=== PATIENT | male | born 1955 | race Caucasian/White ===

== ENCOUNTER 2019-07-21 11:39 | Outpatient (CLI) | payer MEDICARE, SELFPAY ==
[2019-07-21 17:30] LABS: Basophils Absolute Auto 0.1 K/mm3 (0.0-0.1); Basophils Percent Auto 1.3 % (0.2-1.2); Eosinophils Absolute Auto 0.3 K/mm3 (0-0.3); Eosinophils Percent Auto 4.9 % (0-4.4); Hematocrit 45.5 % (42.0-52.0); Hemoglobin 14.9 g/dL (14.0-18.0); Immature Granulocyte Absolute 0.02 K/mm3 (0.00-0.031); Immature Granulocyte Percent A 0.4 % (0-0.5); Lymphocytes Absolute Auto 2.08 K/mm3 (0.9-3.2); Lymphocytes Percent Auto 39.5 % (18.3-44.2); Mean Corpuscular HGB Conc 32.7 g/dl (32-36); Mean Corpuscular Hemoglobin 30.5 pg (26-34); Mean Platelet Volume 10.5 fl (7.4-10.4); Monocytes Absolute Auto 0.7 K/mm3 (0.1-0.6); Monocytes Percent Auto 12.3 % (2.6-8.5); Neutrophils Absolute Auto 2.2 K/mm3 (1.3-6.7); Neutrophils Percent Auto 41.6 % (45.5-73.1); Platelet Count Result 266 k/mm3 (150-375); Red Blood Count 4.89 M/mm3 (4.6-6.20); Red Cell Distribution Width 12.6 % (11.5-14.5); White Blood Count 5.3 K/mm3 (4.5-10.0)
[2019-07-21 17:35] LABS: Add Urine Microscopic? YES; Appearance Urine Clear (Clear); Bilirubin Urine Negative (Negative); Blood Urine Negative (Negative); Color Urine Yellow (Yellow); Glucose Urine UA Negative (Negative); Ketones Urine Negative (Negative); Leukocyte Esterase Ur Negative LEU/UL (Negative); Nitrate Urine Negative (Negative); Protein Urine Negative (Negative); Specific Grav Ur 1.016 (1.001-1.035); Urobilinogen Urine Negative mg/dL (<2.0); WBC Urine 0-3 /hpf
[2019-07-21 18:53] LABS: Hemoglobin A1C 6.1 % (<5.7)
[2019-07-21 18:58] LABS: Alanine Aminotransferase 26 U/L (4-50); Alkaline Phosphatase 44 U/L (38-126); Aspartate Amino Transferase 32 U/L (17-59); Bilirubin,Total 0.4 mg/dL (0.2-1.3); Blood Urea Nitrogen 26 mg/dL (9-20); CRP < 0.5 mg/dL (<1.0); Calcium 10.3 mg/dL (8.4-10.2); Carbon Dioxide 24 mmol/L (22-30); Chloride 96 mmol/L (98-107); Cholesterol 137 mg/dL (0-200); Estimated Glomerular Filt Rate > 60; Glucose 118 mg/dL (75-110); HDL Direct 35 mg/dL; Potassium 4.7 mmol/L (3.4-5.0); Sodium 139 mmol/L (137-145); Triglycerides 210 mg/dL (<150)
[2019-07-21 19:06] LABS: Rheumatoid Factor < 12.0 IU/ML (<12)
[2019-07-21 19:09] LABS: LDL Cholesterol Direct 80 mg/dL
[2019-07-21 20:00] LABS: Folic Acid 11.6 ng/mL (2.76->20)
[2019-07-25 06:07] LABS: C-Peptide 3.44 ng/mL (0.80-3.85)
[2019-07-27 14:16] LABS: Testosterone Free 51.3 pg/mL (35.0-155.0); Testosterone Total 349 ng/dL (250-1100)
[2019-07-27 21:07] LABS: Anti Nuclear Antibody Titer 1:40 (Negative)
== END 2019-07-21 11:40 | disposition home or self-care (01) ==
PROVIDERS: PCP Family Medicine; Visit Provider Family Medicine
DX: E11.9 Type 2 diabetes mellitus without complications (principal); E78.5 Hyperlipidemia, unspecified; I25.10 Atherosclerotic heart disease of native coronary artery without angina pectoris; R53.83 Other fatigue; R79.89 Other specified abnormal findings of blood chemistry; Z79.4 Long term (current) use of insulin; Z79.899 Other long term (current) drug therapy; Z82.62 Family history of osteoporosis; N99.89 Other postprocedural complications and disorders of genitourinary system; I77.9 Disorder of arteries and arterioles, unspecified; Z87.438 Personal history of other diseases of male genital organs
CPT/HCPCS: 36415; 80053; 80061; 81001; 82306; 82607; 82746; 83036; 84402; 84403; 84443; 84681; 85025; 86038; 86039; 86140; 86430

== ENCOUNTER 2019-10-31 10:14 | Outpatient (CLI) | payer MEDICARE, SELFPAY ==
--- NOTE | ~2019-10-31 | CT_ITS ---
EXAMINATION: CT lumbar spine w con DATE: 10/31/2019 10:50 INDICATION: Lumbar spondylosis without myelopathy or radiculopathy. TECHNIQUE: Computed tomography (CT) of the lumbar spine was performed with 100 mL Omnipaque 350 intra venous contrast. Automated exposure control and iterative reconstruction technique were employed. The dose-length product was 1391.27 mGy-cm. COMPARISON: Lumbar spine radiograph 08/24/2019 FINDINGS: Bone alignment is normal. There are Schmorl's nodes of the superior and inferior endplates of L3. There is mildly decreased disc height at L2-L3 and L3-L4. The following disc levels are specif ically discussed: L1-L2: The disc does not extend beyond the endplate margin. There is moderate right and severe left f acet joint osteoarthritis. There is no neural foraminal stenosis. There is no central canal stenosis. L2-L3: The disc is bulging. There is moderate right and mild left facet joint osteoarthritis. There i s mild bilateral neural foraminal stenosis. There is mild central canal stenosis. L3-L4: The disc is bulging. There is severe right and mild left facet joint osteoarthritis. There is mild bilateral neural foraminal stenosis. There is mild central canal stenosis. L4-L5: The disc is bulging. There is moderate right and severe left facet joint osteoarthritis. There is mild bilateral neural foraminal stenosis. There is mild central canal stenosis. L5-S1: The disc is bulging There is moderate and severe left facet joint osteoarthritis. There is mil d left neural foraminal stenosis. There is mild central canal stenosis. IMPRESSION: 1. Mild lumbar spondylosis. Reviewed, dictated and finalized at location E. IMPRESSION: 1. Mild lumbar spondylosis.
[2019-10-31 10:43] LABS: Estimated Glomerular Filt Rate 56
== END 2019-10-31 10:15 | disposition home or self-care (01) ==
PROVIDERS: PCP Family Medicine; Visit Provider Orthopaedic Surgery
DX: M47.816 Spondylosis without myelopathy or radiculopathy, lumbar region (principal)
CPT/HCPCS: 36415; 72132; Q9967

== ENCOUNTER 2020-03-13 08:09 | Emergency (ER) | payer MEDICARE, SELFPAY ==
--- NOTE | ~2020-03-13 | XR_ITS ---
EXAMINATION: XR tibia fibula LT 2V DATE: 03/13/2020 08:41 INDICATION: Left knee injury. TECHNIQUE: 2 views of left tibia and fibula on 3 radiographs were obtained. COMPARISON: None. FINDINGS: There is a comminuted fracture of lateral tibial plateau with mild displacement of one frac ture fragment. There is heterotopic ossification distal to medial malleolus from old injury. There is mild left knee osteoarthritis. IMPRESSION: 1. Comminuted fracture of lateral tibial plateau. Reviewed, dictated and finalized at location A.
--- NOTE | ~2020-03-13 | XR_ITS ---
EXAMINATION: XR knee LT min 4V DATE: 03/13/2020 08:41 INDICATION: Left knee injury. TECHNIQUE: 4 views of left knee were obtained. COMPARISON: None. FINDINGS: There is a comminuted fracture of lateral tibial plateau. One fracture fragment demonstrate s 3 mm anterolateral displacement, and the other fracture fragments are nondisplaced. There is mild t ricompartmental osteoarthritis. There is a large knee joint effusion. IMPRESSION: 1. Comminuted fracture of lateral tibial plateau. 2. Mild left knee osteoarthritis. 3. Large left knee joint effusion. Reviewed, dictated and finalized at location A.
--- NOTE | 2020-03-13 08:13 | ED.LOWEXIN ---
HPI - Extremity Injury (Lower) General Chief Complaint: Extremity Injury, Lower Stated Complaint: L KNEE INJURY Time Seen by Provider: 03/13/20 08:13 History of Present Illness HPI Narrative: 65 yo male with h/o htn, DM, CT, presents from home after being kicked by a horse. He was kicked just below the left knee last night. He had pain instatnt pain at that time. Worse this morning. Not able to bear weight or bend his knee due to pain. Swelling and abrasion noted to the knee. Related Data Home Medications Medication Instructions Recorded Confirmed alprazolam 1 mg tablet 1 mg PO DAILY 07/04/19 01/10/20 aspirin 81 mg tablet,delayed 81 mg PO DAILY 07/04/19 01/10/20 release clopidogrel 75 mg tablet 75 mg PO DAILY 07/04/19 01/10/20 ezetimibe 10 mg tablet 10 mg PO DAILY 07/04/19 01/10/20 fenofibrate nanocrystallized 145 145 mg PO DAILY 07/04/19 01/10/20 mg tablet fluvoxamine 100 mg tablet 100 mg PO BID tablet 07/04/19 01/10/20 lisinopril 5 mg tablet 5 mg PO DAILY 07/04/19 01/10/20 metoprolol tartrate 50 mg tablet 50 mg PO DAILY 07/04/19 01/10/20 tamsulosin 0.4 mg capsule 0.4 mg PO DAILY 07/04/19 01/10/20 amlodipine 2.5 mg tablet 2 mg PO DAILY tablet 01/10/20 01/10/20 finasteride 5 mg tablet 5 mg PO DAILY 01/10/20 01/10/20 Allergies Allergy/AdvReac Type Severity Reaction Status Date / Time TIP Inhibitors Allergy Unknown Unknown Verified 03/13/20 08:27 nitroglycerin AdvReac Severe States Verified 03/13/20 08:27 severe hypotension Review of Systems Review of Systems: All systems reviewed & are unremarkable except as noted in HPI and below Constitutional: Constitutional: Denies fever(s) Musculoskeletal: Musculoskeletal: Denies back pain Neurologic: Denies numbness and Denies weakness [facility] Past Medical History Medical History Arthritis, lumbar spine BMI 33.0-33.9,adult Heart disease Vascular disease Surgical History Surgical History H/O foot surgery 06/2019 Dr. Puentes History of heart surgery Triple bypass 2004 Pacemaker Family History Family History Mother Family history of chronic obstructive pulmonary disease Family history of coronary artery disease Heart disease Sibling Family history of coronary artery disease Family history of heart disease in male family member before age 55 Hypertension Father Family history of coronary artery disease Family history of congestive heart failure Family history of malignant neoplasm of brain Kidney disease Social History Social History Smoking status: Former smoker Second hand tobacco smoke exposure: No Smoking end date: 06/14/04 Alcohol intake: never Additional occupation/education comments: Retired Exam Const: General: healthy appearing, no acute distress and alert Nutritional Appearance: well nourished Orientation/consciousness: patient oriented x3 HENMT: Head: normal to inspection Resp: Effort & Inspection: normal respiratory effort Auscultation: clear to auscultation bilaterally Cardio: Other: 2 + left DP Skin: General skin exam: normal color Other: minor abrasion inferior lateral to the left knee Neuro: General: patient oriented x3 and moves all extremities Other: LLE distal motor and sensory intact Extrem: Other: Ballotable left knee effusion. No gross deformity. ROM significantly reduced due to pain. Course Vital Signs Vital signs: Vital Signs Temperature 36.7 C 03/13/20 08:20 Pulse Rate 73 03/13/20 08:20 Respiratory Rate 20 03/13/20 08:20 Blood Pressure 157/87 H 03/13/20 08:20 Pulse Oximetry 97 03/13/20 08:20 Temperature 36.7 C 03/13/20 08:20 Pulse Rate 87 03/13/20 10:19 Respiratory Rate 18 03/13/20 10:19 Blood Pressure 167/78 H 03/13/20 10
[2020-03-13 08:20] VITALS: BP 157/87; PULSE 73; RESP 20; TEMP 36.7; O2SAT 97
--- NOTE | 2020-03-13 08:28 | PC.NURSE ---
Pt taken to Xray
[2020-03-13] MEDS: HYDROcodone/acetaminophen (*CRX) 5-325 MG TABLET 2 TAB PO (08:41)
[2020-03-13 10:19] VITALS: BP 167/78; PULSE 87; RESP 18; O2SAT 100
== END 2020-03-13 11:13 | disposition home or self-care (01) ==
PROVIDERS: Emergency Provider Emergency Medicine
DX: S82.142A Displaced bicondylar fracture of left tibia, initial encounter for closed fracture (principal); M17.12 Unilateral primary osteoarthritis, left knee; M46.96 Unspecified inflammatory spondylopathy, lumbar region; I51.9 Heart disease, unspecified; I99.9 Unspecified disorder of circulatory system; Z95.0 Presence of cardiac pacemaker; Z87.891 Personal history of nicotine dependence; W55.12XA Struck by horse, initial encounter; Z95.1 Presence of aortocoronary bypass graft
CPT/HCPCS: 73564; 73590; 99284; A9270

== ENCOUNTER 2020-07-30 12:30 | Outpatient (RCR) | payer MEDICARE, SELFPAY ==
--- NOTE | 2020-06-17 15:29 | PTOPEVAL ---
Thank you for referring Deacon Youssef to [facility].? The patient is scheduled to be seen for therapy? 2 x/week for 8-10 weeks. Please review, sign, date and return this plan of care BENSON. I agree with and certify that the following plan of care is medically necessary. Referring Physician Date Attending Provider: Rolly Bruno MD Referring Provider: Rolly Bruno MD/ Perry Romero MD, Zoey Sexton MD *PT Outpatient Evaluation Start: 06/17/20 13:33 Freq: Status: Active Protocol: Document 06/17/20 13:32 CAP (Rec: 06/17/20 14:41 CAP [id number]) Therapy Assessment Status Assessment Status Assessment Status Evaluation Outpatient Past Medical History Past Medical History Source of Past Medical History Patient,Recalled from Previous Visit, Confirmed with Patient /Family Neurological History Hx Neurological Disorders No Significant History Cardiovascular History Hx Cardiac Surgery Yes Hx Hypercholesterolemia Yes Hx Hypertension Yes Hx Myocardial Infarction Yes Respiratory History Hx Respiratory Disorders No Significant History Gastrointestinal History Hx Gastrointestinal Disorders No Significant History Genitourinary History Hx Genitourinary Disorders No Significant History Musculoskeletal History Hx Back Pain Yes Hx Fractures Yes: left tibia fracture Hx Orthopedic Surgery Yes: right 1st metatarsal fusion, 08/03, 08/30 Hematological History Hx Hematological Disorders No Significant History Endocrine History Hx Endocrine Disorders No Significant History HEENT History Hx HEENT Disorders No Significant History Integumentary History Hx Skin Disorders No Significant History Reproductive History Hx Reproductive Disorders No Significant History Psychosocial History Hx Psychiatric Disorders No Significant History Pain History History of Any Previous or Ongoing No Significant History Instance of Pain Anesthesia History Hx Anesthesia Reactions No Significant History Evaluation Information Problem Diagnosis left tibua frature, back pain, right foot pain Onset 03/13/20- tibia Additional Evaluation Detail chronic foot and back pain 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 Subjective Information When he retired he started Query Text:As Reported By Patient/ riding horses and increased Family walking for exercise, but had increased foot pain. He is s/p 2 foot surgeries in 2019 and
--- NOTE | 2020-08-01 11:24 | PCPTNOTE ---
Admitting Provider: Attending Provider: Rolly Bruno MD Patient:Deacon Youssef Date of :1955 Discharge Note Patient cancelled his remaining therapy visit due to surgery planned for his foot on 08/02/20. He attended 11 therapy visits to address back, foot and knee restrictions. He reports improved pain and function, but remain limited due to continued foot pain. He is indep with an exercise program at this time. Unable to obtain objective prior to discharge. The goals have been partially met at this time. Thank you for referring this patient to [facility]. Please review, sign, date and return this discharge summary BENSON. I have been updated about the patient's current status and I agree with discharge from the above service at this time. Referring Physician Date
== END 2020-08-01 14:25 | disposition home or self-care (01) ==
LOC: ANHPT 12:30
PROVIDERS: PCP Internal Medicine; Referring Provider Orthopaedic Surgery; Visit Provider Orthopaedic Surgery
DX: S82.122D Displaced fracture of lateral condyle of left tibia, subsequent encounter for closed fracture with routine healing (principal); M47.816 Spondylosis without myelopathy or radiculopathy, lumbar region
CPT/HCPCS: 97014; 97110; 97113; 97140; 97163; 97530; G0283

== ENCOUNTER 2020-12-31 07:30 | Outpatient (RCR) | payer MEDICARE, SELFPAY ==
--- NOTE | 2020-10-28 11:09 | PTOPEVAL ---
PHYSICAL THERAPY EVALUATION AND PLAN OF CARE Thank you for referring Deacon Youssef to [facility].? The patient is scheduled to be seen for therapy? 2x/week for 4 weeks. Please review, sign, date and return this plan of care BENSON. I agree with and certify that the following plan of care is medically necessary. Referring Physician Date Evaluation Cardiovascular History Hx Cardiac Surgery Yes Hx Hypercholesterolemia Yes Hx Hypertension Yes Hx Myocardial Infarction Yes Musculoskeletal History Hx Back Pain Yes Hx Fractures Yes: left tibia fracture Hx Orthopedic Surgery Yes: right 1st metatarsal fusion, 08/03, 08/30 Diagnosis right foot surgery Onset 07/2020 Subjective Information surgical procedure: lengthened Query Text:As Reported By Patient/ gastroc, shortened toe and Family removed ORIF, and removed nodes; He was non-weight bearing for 7 weeks with a cast. He was then in a weight bearing boot for 6 weeks. Started to wear tennis shoes several weeks ago. States that he has quite a bit of pain today and since surgery states that the pain moves around. Reports that the surgeon said pain would take a while to subside as healing continues. Deacon considers the pain to be worse now compared to immediately after surgery. hobby is to ride horses and has not yet tried until he came to therapy. States that he has also tried to go to the gym but is being cautious. Also has a chronic history of hip and back pain. Self Report Pain Assessment Right Foot/Feet Reported Pain Level 6 Pain Description Aching Radicular Pain Location heavy Pain Frequency Acute,Continuous Lowest Pain Intensity 5 Greatest Pain Intensity 8 Pain Aggravating Factors Exercise/Activity,Walking, Weight Bearing/Standing Pain Behaviors None Pain Score Pain Score 6: Self Report Interventions Used Interventions Used By Clinicians Exercise Pain Relief Interventions Used By Inactivity/Re
--- NOTE | 2020-11-13 13:35 | PCPTNOTE ---
Patient did not show up for scheduled appointment this date; called and patient stated didn't realized he had an appointment today. Reminded about scheduled appointment on Wednesday which stated will be there.
--- NOTE | 2020-11-28 11:40 | PTOPEVAL ---
PHYSICAL THERAPY PLAN OF CARE UPDATE AND PROGRESS REPORT Thank you for referring Deacon Youssef to [facility].? The patient is scheduled to be seen for therapy? 2x/week for 4 weeks. Please review, sign, date and return this plan of care BENSON. I agree with and certify that the following plan of care is medically necessary. Referring Physician Date Attending Provider: Zoey Sexton Diagnosis right foot surgery Onset 07/2020 Subjective Information reports that things are going Query Text:As Reported By Patient/ well but not great. He states Family he is riding his bike and going to the gym. He states that he he can walk on a flat surface for about 10minutes before starting to hurt and needing to rest. He can continue walking a little longer on an incline. Does continue to have pain in the right foot along the medial aspect of the foot. Self Report Pain Assessment Right Foot/Feet Reported Pain Level 4 Pain Description Pressure Pain Frequency Acute,Continuous Pain Aggravating Factors Exercise/Activity,Walking, Weight Bearing/Standing Pain Score Pain Score 4: Self Report Interventions Used Interventions Used By Clinicians Education,Exercise Pain Relief Interventions Used By Inactivity/Rest Patient Lower Extremity Range of Motion Ankle/Foot Range of Motion Right Reason Not Measured WFL/Right Foot/Toe Range of Motion Comments right great toe: limited in flexion and extension Lower Extremity Muscle Strength Testing Hip Strength Right Hip Flexion Strength 4 Good Hip Extension Strength 4 Good Hip Abduction Strength 4 Good Knee Strength Right Knee Flexion Strength 5 Normal Knee Extension Strength 5 Normal Ankle Strength Right Ankle Dorsiflexion Strength 4+ Good + Ankle Plantarflexion Strength 4+ Good + Ankle Eversion Strength 4+ Good + Ankle Inversion Strength 4+ Good + Ankle Strength Comments single leg stand: continues to have significant instability on the right with improved hip control Muscle Length Testing Muscle Length Testing Piriformis w/Hip Flexion >90 Degrees (R) Moderate Tightness,(L) Moderate Tightness Left Hamstring Length -35 Query Text:(90 - 90 Position) Right Hamstring Length -35
--- NOTE | 2020-12-12 08:01 | PCPTNOTE ---
Patient called & cancelled scheduled appointment this date due to having a doctor's appt.
--- NOTE | 2020-12-31 08:08 | PTOPEVAL ---
PHYSICAL THERAPY DISCHARGE NOTE Thank you for referring Deacon Youssef to [facility].? Please review, sign, date and return this plan of care BENSON. I agree with and certify that the following plan of care is medically necessary. Referring Physician Date Attending Provider: Zoey Sexton Discharge Diagnosis right foot surgery Onset 07/2020 Subjective Information Reports that he is a lot Query Text:As Reported By Patient/ better but not 100% better. Family Pain comes and goes depending on what he does. He notices that he is getting stronger but not 100% yet. He states he is riding his bike and going to the gym. States he can walk for about 35 minutes. Self Report Pain Assessment Right Foot/Feet Reported Pain Level 3 Pain Description Aching,Pressure Pain Frequency Acute,Continuous Pain Aggravating Factors Exercise/Activity,Walking, Weight Bearing/Standing Pain Score Pain Score 3: Self Report Interventions Used Interventions Used By Clinicians Exercise Pain Relief Interventions Used By Inactivity/Rest Patient Lower Extremity Range of Motion Ankle/Foot Range of Motion Right Reason Not Measured WFL/Right Foot/Toe Range of Motion Comments right great toe: limited in flexion and extension Lower Extremity Muscle Strength Testing Hip Strength Right Hip Flexion Strength 5 Normal Hip Extension Strength 4 Good Hip Abduction Strength 4+ Good + Knee Strength Right Knee Flexion Strength 5 Normal Knee Extension Strength 5 Normal Ankle Strength Right Ankle Dorsiflexion Strength 5 Normal Ankle Plantarflexion Strength 5 Normal Ankle Eversion Strength 5 Normal Ankle Inversion Strength 5 Normal Ankle Strength Comments single leg stand: Muscle Length Testing Muscle Length Testing Piriformis w/Hip Flexion >90 Degrees (R) Mild Tightness,(L) Mild Tightness Left Hamstring Length -35 Query Text:(90 - 90 Position) Right Hamstring Length -35 Query Text:(90 - 90 Position) Right Prone Knee Flexor Muscle Length ( 100 degrees) Left Prone Knee Flexor Muscle Length ( 115 degrees) General Exercise General Exercises Side Right,Bilateral Exercise Location ankle/LE Exercise Type Active,Resistive,Stabilization Exercise Description reviewed HEP to continue after Query
== END 2021-01-03 14:38 | disposition home or self-care (01) ==
LOC: ANHPT 07:30
PROVIDERS: PCP Internal Medicine
DX: Z48.89 Encounter for other specified surgical aftercare (principal)
CPT/HCPCS: 97110; 97162

== ENCOUNTER 2021-07-13 11:23 | Emergency (ER) | payer MEDICARE, SELFPAY ==
[2021-07-13] VITALS (16 sets, daily range): BP systolic 109–154; BP diastolic 58–78; PULSE 68–80; RESP 14–25; TEMP 36.4–37; O2SAT 79–100
--- NOTE | ~2021-07-13 | XR_ITS ---
EXAMINATION: XR chest 1V portable DATE: 07/13/2021 12:40 INDICATION: Fatigue. TECHNIQUE: A single frontal view of the chest was obtained. COMPARISON: Chest 2 views 11/21/2018 FINDINGS: The chest demonstrates clear lungs without pneumonia, pleural effusion, or pneumothorax. Th e heart size is normal. There are prominent paracardial fat pads. Median sternotomy wires and mediast inal surgical clips are seen, likely from prior coronary artery bypass grafting. There is a left ches t wall pacer with leads in the right atrium and right ventricle. IMPRESSION: 1. No acute cardiopulmonary disease. Reviewed, dictated and finalized at location A. OMER SUPPLY COORDINATOR
--- NOTE | 2021-07-13 12:08 | ECG_ITS ---
Measurements Intervals [place] Rate: 70 P: 121 UT: 320 QRS: -24 QRSD: 150 T: -86 QT: 391 QTc: 422 Interpretive Statements ELECTRONIC ATRIAL PACEMAKER LEFT BUNDLE BRANCH BLOCK INFERIOR INFARCT OR DUE TO LBBB BASELINE ARTIFACT- II, V1, V3-V6 ABNORMAL ECG Electronically Signed On 07-13-2021 16:23:56 POLYGRAPH EXAMINER by Harry Zamora D.O.
[2021-07-13 12:26] LABS: Basophils Percent Auto 0.9 % (0.2-1.2); Eosinophils Absolute Auto 0.1 K/mm3 (0-0.3); Hematocrit 41.9 % (42.0-52.0); Hemoglobin 14.1 g/dL (14.0-18.0); Immature Granulocyte Absolute 0.02 K/mm3 (0.00-0.031); Immature Granulocyte Percent A 0.5 % (0-0.5); Lymphocytes Absolute Auto 1.59 K/mm3 (0.9-3.2); Lymphocytes Percent Auto 36.4 % (18.3-44.2); Mean Corpuscular HGB Conc 33.7 g/dl (32-36); Mean Corpuscular Hemoglobin 32.6 pg (26-34); Mean Corpuscular Volume 96.8 fl (80-100); Mean Platelet Volume 9.7 fl (7.4-10.4); Monocytes Absolute Auto 0.5 K/mm3 (0.1-0.6); Monocytes Percent Auto 11.7 % (2.6-8.5); Neutrophils Absolute Auto 2.1 K/mm3 (1.3-6.7); Neutrophils Percent Auto 47.5 % (45.5-73.1); Platelet Count Result 210 k/mm3 (150-375); Red Blood Count 4.33 M/mm3 (4.6-6.20); Red Cell Distribution Width 12.6 % (11.5-14.5); White Blood Count 4.4 K/mm3 (4.5-10.0)
--- NOTE | 2021-07-13 12:29 | PC.NURSE ---
resting on cot, no distress
[2021-07-13 12:43] LABS: Alanine Aminotransferase 21 U/L (4-50); Albumin Level 4.4 g/dL (3.5-5.1); Alkaline Phosphatase 29 U/L (38-126); Anion Gap 7 mmol/L (8-16); Aspartate Amino Transferase 26 U/L (17-59); Bilirubin,Total 0.3 mg/dL (0.2-1.3); Blood Urea Nitrogen 23 mg/dL (9-20); Calcium 9.7 mg/dL (8.4-10.2); Carbon Dioxide 27 mmol/L (22-30); Chloride 106 mmol/L (98-107); Estimated CRCL calculation 58 ml/min; Estimated Glomerular Filt Rate > 60; Glucose 148 mg/dL (65-110); Potassium 4.2 mmol/L (3.4-5.0); Sodium 140 mmol/L (137-145)
[2021-07-13 13:01] LABS: SARS-CoV-2 RNA PCR Negative
[2021-07-13 13:28] LABS: Add Urine Microscopic? YES; Appearance Urine Clear (Clear); Bilirubin Urine Negative (Negative); Blood Urine 2+ (Negative); Color Urine Colorless (Yellow); Glucose Urine UA Negative (Negative); Ketones Urine Negative (Negative); Leukocyte Esterase Ur Negative LEU/UL (Negative); Nitrate Urine Negative (Negative); Protein Urine Negative (Negative); RBC Urine 0-2 /hpf (0-2); Urobilinogen Urine Negative mg/dL (<2.0); WBC Urine 0-3 /hpf
[2021-07-13 13:31] LABS: Specific Grav Ur 1.004 (1.001-1.035)
--- NOTE | 2021-07-13 18:58 | ED.GENADULT ---
HPI - General Adult General Chief complaint: Unspecified Stated complaint: sick case Time Seen by Provider: 07/13/21 11:31 Source: patient Mode of arrival: ambulatory Limitations: no limitations History of Present Illness HPI narrative: Patient is a 66-year-old male presented with chief complaint of fatigue, body aches that began after receiving his second Covid vaccination on 07-02-21. Patient denies chest pain, cough or shortness of breath. Patient reports that initially he thought his symptoms were due to his vaccination but he feels that he should be better at point. Patient reports he has not had any fevers. Patient reports that he has been sleeping more than normal due to the fatigue. Patient denies any falls or head traumas or neurological deficits. Patient denies any urinary symptoms. Related Data Home Medications Medication Instructions Recorded Confirmed alprazolam 1 mg tablet 1 mg PO DAILY 07/04/19 04/24/20 aspirin 81 mg tablet,delayed 81 mg PO DAILY 07/04/19 04/24/20 release clopidogrel 75 mg tablet 75 mg PO DAILY 07/04/19 04/24/20 ezetimibe 10 mg tablet 10 mg PO DAILY 07/04/19 04/24/20 fenofibrate nanocrystallized 145 145 mg PO DAILY 07/04/19 04/24/20 mg tablet fluvoxamine 100 mg tablet 100 mg PO DAILY tablet 07/04/19 04/24/20 lisinopril 5 mg tablet 5 mg PO DAILY 07/04/19 04/24/20 metoprolol tartrate 50 mg tablet 25 mg PO DAILY 07/04/19 04/24/20 tamsulosin 0.4 mg capsule 0.4 mg PO DAILY 07/04/19 04/24/20 amlodipine 2.5 mg tablet 2 mg PO DAILY tablet 01/10/20 04/24/20 finasteride 5 mg tablet 5 mg PO DAILY 01/10/20 04/24/20 buspirone 15 mg 07/13/21 metoprolol tartrate 07/13/21 Allergies Allergy/AdvReac Type Severity Reaction Status Date / Time TIP Inhibitors AdvReac Unknown Unknown Verified 07/13/21 11:38 Review of Systems Review of Systems: CONSTITUTIONAL: Reports fatigue and body aches denies fever, chills, or sweats. EYES: Denies visual changes, redness, or discharge. ENT: Denies rhinorrhea, congestion, sore throat, or otalgia. CARDIOVASCULAR: Denies chest pain, palpitations, or edema. RESPIRATORY: Denies cough or dyspnea. GASTROINTESTINAL: Denies abdominal pain, nausea, vomiting, or diarrhea. GENITOURINARY: Denies dysuria or hematuria. SKIN: Denies rash or itching. MUSCULOSKELETAL: Denies back pain, joint pain, or myalgia. NEUROLOGIC: Denies headache, numbness, dizziness, or weakness. PSYCHIATRIC: Denies anxiety or depression. [facility] Past Medical History Medical History (Updated 07/13/21 @ 13:03 by Amaury Adan PA-C) Arthritis, lumbar spine BMI 33.0-33.9,adult Heart disease Vascular disease Surgical History Surgical History H/O foot surgery 06/2019 Dr. Puentes History of heart surgery Triple bypass 2004 Pacemaker Family History Family History Mother Family history of chronic obstructive pulmonary disease Family history of coronary artery disease Heart disease Sibling Family history of coronary artery disease Family history of heart disease in male family member before age 55 Hypertension Father Family history of coronary artery disease Family history of congestive heart failure Family history of malignant neoplasm of brain Kidney disease Social History Social History Smoking status: Former smoker Second hand tobacco smoke exposure: No Smoking end date: 06/14/04 Alcohol intake: never Additional occupation/education comments: Retired Exam Narrative: GENERAL: Well-appearing, well-nourished, and in no acute distress. Nontoxic in appearance. HEAD: Normocephalic, atraumatic. EYES: PERRLA and EOMI. CHEST: Clear to auscultation. No respiratory distress. No wheezes rales or rhonchi HEART: Regular rate and rhythm. No murmur heard. Normal peripheral pulses. ABDOMEN: Soft, nontender, nondistend
== END 2021-07-13 14:00 | disposition home or self-care (01) ==
PROVIDERS: Physician Assistant; Emergency Provider Emergency Medicine; PCP Internal Medicine
DX: R53.83 Other fatigue (principal); T50.B95A Adverse effect of other viral vaccines, initial encounter; Z20.822 Contact with and (suspected) exposure to COVID-19; I38 Endocarditis, valve unspecified; I51.9 Heart disease, unspecified; M47.816 Spondylosis without myelopathy or radiculopathy, lumbar region; Z95.0 Presence of cardiac pacemaker; Z87.891 Personal history of nicotine dependence; Z79.82 Long term (current) use of aspirin
CPT/HCPCS: 36415; 71045; 80053; 81001; 85025; 87804; 93005; 99283; C9803; U0003; U0005

== ENCOUNTER 2021-10-14 14:03 | Emergency (ER) | payer MEDICARE, SELFPAY ==
--- NOTE | ~2021-10-14 | XR_ITS ---
EXAMINATION: XR ribs RT 2V INDICATION: Chest pain TECHNIQUE: 3 views of the right ribs were obtained. COMPARISON: 07/13/2021 FINDINGS: No displaced rib fracture is identified. There is mild atelectasis of the lung bases. Cardi omegaly is noted. Median sternotomy wires and mediastinal surgical clips are seen, likely from prior coronary artery bypass grafting. A dual-lead cardiac pacemaker of the left chest wall ends with leads in expected locations. IMPRESSION: 1. No displaced rib fracture identified. Reviewed, dictated and finalized at location A.
--- NOTE | ~2021-10-14 | CT_ITS ---
EXAMINATION: CT cervical spine wo con DATE: 10/14/2021 15:22 INDICATION: Head injury. TECHNIQUE: Computed tomography (CT) of the cervical spine was performed without intravenous contrast. Automated exposure control and iterative reconstruction technique were employed. The dose-length pro duct was 454.41 mGy-cm. COMPARISON: None FINDINGS: There are small bilateral mastoid effusions. There is 5 degrees dextrocurvature of cervical spine. Vertebral body heights are normal. There is moderately decreased disc height at C3-C4 and sev erely decreased disc height at C6-C7. The following disc levels are specifically discussed: C2-C3: There is no uncovertebral joint osteoarthritis. There is mild bilateral facet joint osteoarthr itis. There is no neural foraminal stenosis. There is no central canal stenosis. C3-C4: There is severe bilateral uncovertebral joint osteoarthritis. There is mild bilateral facet francis int osteoarthritis. There is mild right and moderate left neural foraminal stenosis. There is mild ce ntral canal stenosis. C4-C5: There is mild bilateral uncovertebral joint osteoarthritis. There is moderate right and mild l eft facet joint osteoarthritis. There is mild bilateral neural foraminal stenosis. There is mild cent ral canal stenosis. C5-C6: There is mild left uncovertebral joint osteoarthritis. There is no facet joint osteoarthritis. There is no neural foraminal stenosis. There is mild central canal stenosis. C6-C7: There is severe bilateral uncovertebral joint osteoarthritis. There is moderate right and javon re left facet joint osteoarthritis. There is moderate bilateral neural foraminal stenosis. There is m ild central canal stenosis. C7-T1: There is no uncovertebral joint osteoarthritis. There is severe bilateral facet joint osteoart hritis. There is mild left neural foraminal stenosis. There is no central canal stenosis. IMPRESSION: 1. No fracture. 2. Severe cervical spondylosis. Reviewed, dictated and finalized at location B.
--- NOTE | ~2021-10-14 | CT_ITS ---
EXAMINATION: CT brain wo con INDICATION: Head injury COMPARISON: None TECHNIQUE: Standard unenhanced head CT. The dose-length product (DLP) was 605.33 mGy-cm. The mA was a djusted according to patient size. Iterative reconstruction technique was employed. FINDINGS: There is no intracranial hemorrhage, acute infarction, or abnormal mass lesion. The ventric les are normal. There is no abnormal mass effect or midline shift. The jensen-white matter differentiat ion is normal. The basal cisterns are patent. The orbits are normal. There is a chronic small right m astoid effusion. The paranasal sinuses, left mastoids and calvarium are normal. IMPRESSION: 1. No acute intracranial abnormality. Reviewed, dictated and finalized at location A.
[2021-10-14 14:06] VITALS: BP 157/99; PULSE 67; RESP 18; TEMP 37.1; O2SAT 99
--- NOTE | 2021-10-14 14:27 | ED.BACK ---
HPI - Back Pain/Injury General Chief Complaint: Back Pain/Injury Stated Complaint: fall from horse with shoulder pain Time Seen by Provider: 10/14/21 14:14 History of Present Illness HPI Narrative: 66-year-old male presents the emergency room for evaluation of labs and after falling off of a horse. Patient states he fell off a horse on Wednesday landed on his right side and also struck his head. Patient states pain is worse with inspiration and movement when you touch. Patient denied LOC or altered mental status. Patient is on Plavix. Related Data Home Medications Medication Instructions Recorded Confirmed alprazolam 1 mg tablet 1 mg PO DAILY 07/04/19 10/01/21 aspirin 81 mg tablet,delayed 81 mg PO DAILY 07/04/19 10/01/21 release clopidogrel 75 mg tablet 75 mg PO DAILY 07/04/19 10/01/21 ezetimibe 10 mg tablet 10 mg PO DAILY 07/04/19 10/01/21 fenofibrate nanocrystallized 145 145 mg PO DAILY 07/04/19 10/01/21 mg tablet fluvoxamine 100 mg tablet 100 mg PO DAILY tablet 07/04/19 10/01/21 lisinopril 5 mg tablet 5 mg PO DAILY 07/04/19 10/01/21 amlodipine 2.5 mg tablet 2 mg PO DAILY tablet 01/10/20 10/01/21 finasteride 5 mg tablet 5 mg PO DAILY 01/10/20 10/01/21 buspirone 15 mg 07/13/21 10/01/21 metoprolol tartrate 07/13/21 10/01/21 Allergies Allergy/AdvReac Type Severity Reaction Status Date / Time TIP Inhibitors AdvReac Unknown Unknown Verified 10/14/21 14:18 Review of Systems Review of Systems: CONSTITUTIONAL: Denies fever, chills, or sweats. EYES: Denies visual changes, redness, or discharge. ENT: Denies rhinorrhea, congestion, sore throat, or otalgia. CARDIOVASCULAR: Denies chest pain, palpitations, or edema. RESPIRATORY: Denies cough or dyspnea. GASTROINTESTINAL: Denies abdominal pain, nausea, vomiting, or diarrhea. GENITOURINARY: Denies dysuria or hematuria. SKIN: Denies rash or itching. MUSCULOSKELETAL: Reports right rib pain NEUROLOGIC: Denies headache, numbness, dizziness, or weakness. PSYCHIATRIC: Denies anxiety or depression. PMFSH Past Medical History Medical History Arthritis, lumbar spine BMI 33.0-33.9,adult Heart disease Pain in both knees Vascular disease Surgical History Surgical History H/O foot surgery 06/2019 Dr. Puentes History of heart surgery Triple bypass 2004 Pacemaker Family History Family History Mother Family history of chronic obstructive pulmonary disease Family history of coronary artery disease Heart disease Sibling Family history of coronary artery disease Family history of heart disease in male family member before age 55 Hypertension Father Family history of coronary artery disease Family history of congestive heart failure Family history of malignant neoplasm of brain Kidney disease Social History Social History Smoking status: Former smoker Second hand tobacco smoke exposure: No Smoking end date: 06/14/04 Alcohol intake: never Additional occupation/education comments: Retired Exam Narrative: GENERAL: Well-appearing, well-nourished, and in no acute distress. HEAD: Normocephalic, atraumatic. EYES: PERRLA and EOMI. CHEST: Clear to auscultation. No respiratory distress. No wheezes rales or rhonchi. Tenderness to the right lateral eighth and ninth ribs. No ecchymosis noted no flail chest. No bony abnormality HEART: Regular rate and rhythm. No murmur heard. Normal peripheral pulses. ABDOMEN: Soft, nontender, nondistended, normal active bowel sounds. EXTREMITIES: Normal range of motion. No edema. SKIN: Warm, dry, no rash. NEURO: No focal deficits. Alert and oriented x3. PSYCH: Normal mood and affect. Course Vital Signs Vital signs: Vital Signs Temperature 37.1 C 10/14/21 14:06 Pulse Rate 67 10/14/21 14:06 R
[2021-10-14 16:10] VITALS: RESP 16
== END 2021-10-14 16:10 | disposition home or self-care (01) ==
PROVIDERS: Emergency Provider Nurse Practitioner Family; PCP Internal Medicine
DX: S09.90XA Unspecified injury of head, initial encounter (principal); S20.211A Contusion of right front wall of thorax, initial encounter; I51.9 Heart disease, unspecified; I99.9 Unspecified disorder of circulatory system; Z95.0 Presence of cardiac pacemaker; Z95.1 Presence of aortocoronary bypass graft; Z79.82 Long term (current) use of aspirin; Z87.891 Personal history of nicotine dependence; V80.010A Animal-rider injured by fall from or being thrown from horse in noncollision accident, initial encounter; Y93.52 Activity, horseback riding
CPT/HCPCS: 70450; 71100; 72125; 99284

== ENCOUNTER 2022-03-24 12:30 | Outpatient (RCR) | payer MEDICARE, SELFPAY ==
--- NOTE | 2022-01-26 14:57 | PTOPEVAL ---
PHYSICAL THERAPY EVALUATION AND PLAN OF CARE Thank you for referring Deacon Youssef to [facility].? The patient is scheduled to be seen for therapy? 2x/week for 4 weeks. Please review, sign, date and return this plan of care BENSON. I agree with and certify that the following plan of care is medically necessary. Referring Physician Date Attending Provider: Arthur Bateman MD Diagnosis low back pain Onset chronic Subjective Information Reports a chronic pain in low Query Text:As Reported By Patient/ back. Almost a constant ache Family and will have occasionl espiodes of severe pain. When the severe pain occurs it goes down his legs. Reports that the muscles feel really tight and tired and the low back will get achey and his feet will throb. Enjoys horse back riding and has not felt able to participate in this activity lately for not feeling strong enough to get on the horse. Spine, Lumbar Reported Pain Level 5 Pain Description Aching,Tightness Lumbar ROM Lumbar Flexion Active Knee Query Text:Hands to: Lumbar Extension (0-40) 5 Query Text:Active in Degrees Lower Extremity Range of Motion General Lower Extremity Range of Motion Reason Not Measured WFL/Left,WFL/Right Lower Extremity Muscle Strength Testing Hip Strength Left Hip Flexion Strength 4- Good - Hip Extension Strength 3 Fair Hip Abduction Strength 3 Fair Right Hip Flexion Strength 5 Normal Hip Extension Strength 3- Fair - Hip Abduction Strength 3 Fair Hip Strength Comments high resting tone of bilateral glutes, especially right-- requires significant cues to inhibit the glutes in order to promote optimal contraction after relaxation Knee Strength Bilateral Knee Flexion Strength 4+ Good + Knee Extension Strength 4+ Good + Muscle Length Testing Muscle Length Testing Mathew Test Shortened Muscles Short (R) Iliopsoas,Short (L) Iliopsoas,Short (R) Rectus Femoris,Short (L) Rectus Femoris Piriformis w/Hip Flexion >90 Degrees (R) Moderate Tightness,(L) Moderate Tightness Posture Posture Standing Position Lumbar Spine Posture
--- NOTE | 2022-02-24 13:32 | PTOPPROG ---
Assessment and note entered by Katiana Lopez, PT Evaluation Information Assessment Status Re-evaluation Subjective Information Deacon reports: since coming for therapy, little worse because feel it more, due to doing more-- hamstring, gluts, knees and back--muscles sore from using them; does have pain with R foot when walking due to previous surgery; have his bicycle ready to ride for fitness; wants to continue therapy to get moving more; Assessment PT Clinical Summary Deacon has received 9 PT sessions, for the diagnosis of chronic low back pain. Oswestry self assessment functional score of 50% limitation in activity level. Compared to the initial evaluation: continues to have tightness over lumbar spine and hips; has slight increase in strength of hips; continues to report decrease walking and activity level at home He has been educated and is performing a home exercise program. He does report more soreness of muscles from stretching and doing more; have worked with him on differentiating pain VS muscle sore from stretching. Discussed aquatic therapy with pt and he is interested in doing water exercises. Continue PT for further stretching and strengthening of his trunk and hips, with progression of his HEP and use of the aquatic exercises for the heat and buoyancy of the water to increase ability to stretch; Plan of Care Interventions Aquatic Therapy,Hot Pack/Cold Pack,Manual Therapy, Mechanical Traction,Neuro Re-education,Patient/ Caregiver Education,Therapeutic Activities, Therapeutic Exercise PT Services Indicated Yes Treatment Frequency and 2x/wk for 4 weeks Duration These treatments will address the objective and functional deficits as defined above. The patient will be advanced safely and appropriately in order for the patient to progress towards his/her prior level of function. Additional exercises will be introduced and as well as a comprehensive home exercise program upon discharge, if needed, ?to ensure carryover of functional gains achieved in the clinic. This treatment plan has been reviewed and agreement upon by the patient.
--- NOTE | 2022-03-03 12:09 | PCPTNOTE ---
Patient called & cancelled scheduled appointment this date due to unable to make it due to something coming up.
--- NOTE | 2022-03-24 13:08 | PTOPDC ---
Assessment and note entered by Katiana Lopez, PT Evaluation Information Assessment Status Discharge Subjective Information Deacon reports: had injections in R and L knees by ortho dr and helped some; still having problems with sleeping- wake up with pain during night; walking about 15 min then have to stop due to back , R foot and gluts tight; foot dr said no more surgery on foot; pain management said may consider some noninvasive surgery on back; liked the water exercises- looking to join a fitness center with a pool; still try to walk every day for exercise; Reported Pain Level Pain Score Self Report back pain Additional Pain Score Comments reports pain range in back of 4-8/10; points to lower lumbar spine- center of back, B gluts, wake up 3x/ night due to back pain; Oswestry self assessment functional score 62% limitation; decrease pain with heat pad, aspirin, stretching; increase pain with walking/standing; educated pt on activity/rest balance, importance of stretching hips and continue to strengthen legs and trunk, benefits of aquatic exercise VS walking; Assessment PT Clinical Summary Deacon has received 15 PT sessions, for the diagnosis of lumbago. Treatment included land and aquatic exercises. Compared to the last reevaluation: pain rating is the same at the low rating 4/10 and increased 1 at the worst rating from 7 to 8/10; reported walking tolerance increased from 10 to 15 minutes; flexibility of anterior hip/quad, piriformis and hip extension are about the same; slight increase in R and L hip strength; Oswestry self assessment functional score is 12% worse; He has been educated on posture, body mechanics, pain management and home exercises. The goals were partially met. Discharge PT services, and he is to continue with his land and aquatic exercises. Plan of Care PT Services Indicated No
== END 2022-03-24 15:02 | disposition home or self-care (01) ==
LOC: ANHPT 12:30
PROVIDERS: PCP Internal Medicine
DX: M54.50 Low back pain, unspecified (principal); G89.29 Other chronic pain
CPT/HCPCS: 97110; 97112; 97113; 97140; 97162; 97530

== ENCOUNTER 2023-01-06 07:28 | Emergency (ER) | payer MEDICARE, SELFPAY ==
--- NOTE | ~2023-01-06 | CT_ITS ---
Non-contrast Head CT History: Head injury COMPARISON: 10/14/2021 Technique: Axial non-contrast imaging of the brain was performed. Dose reduction technique was used on this scan by utilizing automated exposure control and iterative reconstruction technique. The dose -length product (DLP) was 605.33 mGy-cm. Findings: There is no evidence of intracranial hemorrhage, mass lesion, or acute infarct. Brain par enchyma appears normal. The ventricles and subarachnoid spaces are normal in size. The calvarium ap pears normal. The visualized paranasal sinuses and mastoid air cells are clear. Impression: No significant abnormality seen. Reviewed, dictated and finalized at location . Impression: No significant abnormality seen.
--- NOTE | ~2023-01-06 | CT_ITS ---
CT Facial Bones Clinical Indication: Facial swelling and bruising Technique: Contiguous axial scans were obtained through the facial bones followed by coronal and sagi ttal reconstructions. Dose reduction technique was used on this scan by utilizing automated exposure control and iterative reconstruction technique. The dose-length product (DLP) was 386.30 mGy-cm. Findings: No fractures are identified. The visualized paranasal sinuses are clear. Intraorbital soft tissues appear normal. There is a 2.3 x 1.1 x 2.2 cm hematoma in the right cheek. Impression: No fracture identified. 2.3 x 1.1 x 2.2 cm hematoma in the right cheek. Reviewed, dictated and finalized at location . Impression: No fracture identified. 2.3 x 1.1 x 2.2 cm hematoma in the right cheek.
[2023-01-06 07:30] VITALS: BP 183/93; PULSE 78; RESP 18; TEMP 36.4; O2SAT 97
[2023-01-06 07:36] VITALS: BP 164/81; PULSE 70; RESP 19; TEMP 36.7; O2SAT 97
[2023-01-06 07:41] VITALS: O2SAT 97
--- NOTE | 2023-01-06 08:24 | ED.HEATRA ---
HPI - Head Injury General Chief complaint: Head Injury Stated complaint: facial injury Time Seen by Provider: 01/06/23 07:36 Source: patient and RN notes reviewed Mode of arrival: ambulatory Limitations: no limitations History of Present Illness HPI Narrative: This is a 67 year old male who presents for evaluation of facial bruising. He states last week he was accidentally head butted by his horse. He denies having LOC . He reports he has right facial swelling and bruising at the time. He also reports frontal headache since this injury. He denies nausea or vomiting. He has chronic blurred vision from macular degeneration but he states his vision does not seem any worse. He also denies pain with eye movement. He takes aspirin 81 mg and plavis for history of recent [place], peripheral stents. He came to ER today because although the swelling has improved, he noticed right cheek knot that is still present. Related Data Home Medications Medication Instructions Recorded Confirmed alprazolam 1 mg tablet 1 mg PO DAILY 07/04/19 11/18/22 aspirin 81 mg tablet,delayed 81 mg PO DAILY 07/04/19 11/18/22 release (Adult Low Dose Aspirin) clopidogrel 75 mg tablet 75 mg PO DAILY 07/04/19 11/18/22 ezetimibe 10 mg tablet 10 mg PO DAILY 07/04/19 11/18/22 fenofibrate nanocrystallized 145 145 mg PO DAILY 07/04/19 11/18/22 mg tablet fluvoxamine 100 mg tablet 100 mg PO DAILY 07/04/19 11/18/22 lisinopril 5 mg tablet 5 mg PO DAILY 07/04/19 11/18/22 amlodipine 2.5 mg tablet 2 mg PO DAILY 01/10/20 11/18/22 finasteride 5 mg tablet 5 mg PO DAILY 01/10/20 11/18/22 buspirone 15 mg tablet 15 mg 07/13/21 11/18/22 metoprolol tartrate 25 mg tablet 07/13/21 11/18/22 Allergies Allergy/AdvReac Type Severity Reaction Status Date / Time No Known Allergies Allergy Verified 11/18/22 13:27 Review of Systems Constitutional: Constitutional: Denies weakness Cardiovascular: Cardiovascular: Denies syncope, Denies rapid heart rate, Denies irregular heart rhythm, Denies leg edema and Denies dyspnea Respiratory: Respiratory: Denies chest congestion, Denies hemoptysis, Denies excessive phlegm production and Denies dyspnea Gastrointestinal: Gastrointestinal: Denies abdominal pain, Denies hematochezia, Denies diarrhea and Denies vomiting Genitourinary: Genitourinary: Denies hematuria, Denies dysuria, Denies penile discharge and Denies testicular pain Musculoskeletal: Musculoskeletal: Denies joint swelling, Denies loss of height and Denies muscle weakness Neurologic: Reports dizziness, Denies syncope, Reports headache(s), Denies focal weakness and Denies weakness [facility] Past Medical History Medical History (Updated 01/06/23 @ 08:27 by Shanel Freitas MD) Arthritis, lumbar spine BMI 33.0-33.9,adult Closed fracture of lateral portion of left tibial plateau Degenerative arthritis of knee, bilateral Heart disease Myocardial infarction Pain in both knees Vascular disease Surgical History Surgical History (Updated 01/06/23 @ 08:27 by Shanel Freitas MD) H/O foot surgery 06/2019 Dr. Puentes History of heart surgery Triple bypass 2003 Pacemaker Stented coronary artery Family History Family History Mother Family history of chronic obstructive pulmonary disease Family history of coronary artery disease Heart disease Sibling Family history of coronary artery disease Family history of heart disease in male family member before age 55 Hypertension Father Family history of coronary artery disease Family history of congestive heart failure Family history of malignant neoplasm of brain Kidney disease Social History Social History Smoking status: Former smoker Second hand tobacco smoke exposure: No Smoking end date: 06/14/04 Alcohol intake: never Substance use type: does not use Lack of Transportation: No Lack of Food: Never True
[2023-01-06 08:40] VITALS: BP 139/93; PULSE 63; RESP 18; O2SAT 94
== END 2023-01-06 08:40 | disposition home or self-care (01) ==
PROVIDERS: Emergency Provider General Practice; PCP Internal Medicine
DX: S00.83XA Contusion of other part of head, initial encounter (principal); H35.30 Unspecified macular degeneration; I25.2 Old myocardial infarction; I99.9 Unspecified disorder of circulatory system; M47.816 Spondylosis without myelopathy or radiculopathy, lumbar region; M17.0 Bilateral primary osteoarthritis of knee; Z95.5 Presence of coronary angioplasty implant and graft; Z95.0 Presence of cardiac pacemaker; Z87.891 Personal history of nicotine dependence; Z79.02 Long term (current) use of antithrombotics/antiplatelets; Z79.82 Long term (current) use of aspirin; Z79.84 Long term (current) use of oral hypoglycemic drugs; W55.12XA Struck by horse, initial encounter
CPT/HCPCS: 70450; 70486; 99284

== ENCOUNTER 2023-04-06 08:00 | Outpatient (RCR) | payer MEDICARE, SELFPAY ==
--- NOTE | 2023-02-05 12:02 | OPREHPOC ---
Outpatient Therapy Plan of Care This is a Multidisciplinary Plan of Care that may contain components documented by all disciplines (PT, OT, and ST.) PT Problem 1 PT Problem #1 Knowledge Deficit PT Goal 1 Goal 1* pt indep with HEP PT Problem 2 PT Problem #2 Pain PT Goal 1 Goal 1* pt report knee pain bilateral of 5/10 at worst 2* pt report walking tolerance of 15 minutes PT Problem 3 PT Problem #3 Impaired Strength PT Goal 1 Goal 1* pt able to perform 20 reps of mat and standing strengthening exercises single leg standing with good stability 30 seconds 2* R 3* L 4* 2 minute walking test distance of 475' PT Problem 4 PT Problem #4 Impaired Flexibility PT Goal 1 Goal increase anterior hip/quad length with prone knee flexion 1* R 105' 2* L 110'
--- NOTE | 2023-02-05 12:03 | PTOPEVAL1 ---
Assessment and note entered by Katiana Lopez, PT Evaluation Information Assessment Status Evaluation Diagnosis bilateral knee pain Onset November 2022 Subjective Information was scheduled to have TKR on L, but then had cardiac issues with stent placed and not able to have knee surgery; had injections in both knees and they helped with his pain; ACTIVITY: does not use an assistive device, indep with home and self care; does not work; Reported Pain Level Pain Score Self Report Additional Pain Score Comments pain range of 4 to 7/10; L knee more painful than R; walking tolerance of about 10 minutes then have to sit down; also has back and R foot pain with walking and activity increase pain: stairs, walking decrease pain: ice, heat, sit, rest, muscle cream; aspirin, have new script for tramadol--not started yet Assessment PT Clinical Summary Deacon has the diagnosis of bilateral knee pain. He was scheduled to have L TKR, but had to be canceled due to cardiac issues and stents placed. His walking tolerance is limited due to knee pain. His medical history includes pacemaker, R foot surgery/pain and low back pain. With the evaluation, he has weakness of both hips and knees, with decreased L knee ROM and anterior hip/quad tightness. Skilled PT services are indicated for modalities to decrease pain, therapeutic exercises to increase his strength and flexibility with education for HEP and activity progression. Plan of Care Interventions Hot Pack/Cold Pack,Manual Therapy,Neuro Re- education,Patient Education,Therapeutic Activities,Therapeutic Exercise,Self-Care/Home Management,Ultrasound,Other Other Interventions taping PT Services Indicated Yes Treatment Frequency and 1x/wk for 4 weeks Duration These treatments will address the objective and functional deficits as defined above. The patient will be advanced safely and appropriately in order for the patient to progress towards his/her prior level of function. Additional exercises will be introduced and as well as a comprehensive home exercise program upon discharge, if need
--- NOTE | 2023-03-05 11:41 | PTOPPROG ---
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 Compared to the initial evaluation: pain rating from 4-7/10 to 6-8/10 in knees; continues to report back and hip pain also; reported walking tolerance is the same at 10 min; increased strength of both hips and knees with mat exercises 2 minute walking test distance is about the same; education for home exercise program and position/ posture with activity. The goals were partially achieved. Continue treatment- continue modalities for pain-- continue dry needling with progression of strengthening as tolerated. Plan of Care Interventions Hot Pack/Cold Pack,Manual Therapy,Neuro Re- education,Patient Education,Therapeutic Activities,Therapeutic Exercise,Self-Care/Home Management,Ultrasound,Other Other Interventions dry needling, taping, IASTM PT Services Indicated Yes Treatment Frequency and 1x/wk for 4 weeks Duration These treatments will address the objective and functional deficits as defined above. The patient will be advanced safely and appropriately in order for the patient to progress towards his/her prior level of function. Additional exercises will be introduced and as well as a co
--- NOTE | 2023-03-05 11:41 | OPREHPOC ---
Outpatient Therapy Plan of Care This is a Multidisciplinary Plan of Care that may contain components documented by all disciplines (PT, OT, and ST.) PT Problem 1 PT Problem #1 Knowledge Deficit PT Goal 1 Goal 1* pt indep with HEP Progress Met Comment 03-05-23 progress met goal continue to progress education/ HEP PT Problem 2 PT Problem #2 Pain PT Goal 1 Goal 1* pt report knee pain bilateral of 5/10 at worst 2* pt report walking tolerance of 15 minutes Progress Not Met Comment 03-05-23 progress continue towards goals PT Problem 3 PT Problem #3 Impaired Strength PT Goal 1 Goal 1* pt able to perform 20 reps of mat and standing strengthening exercises single leg standing with good stability 30 seconds 2* R 3* L 4* 2 minute walking test distance of 475' Progress Partially Met Comment 03-05-23 progress met goals: #1- able to perform some of them 20 reps; #2&3-met for time but unstable continue towards goals PT Problem 4 PT Problem #4 Impaired Flexibility PT Goal 1 Goal increase anterior hip/quad length with prone knee flexion 1* R 105' 2* L 110' Progress Met Comment 03-05-23 progress met goals discontinue flexibility
--- NOTE | 2023-04-05 11:25 | PCPTNOTE ---
pt did not show for today's reevaluation; called him and he had the wrong date on his calendar for appt; he wanted to reschedule the appt.
--- NOTE | 2023-04-06 08:46 | PTOPDC ---
Assessment and note entered by Katiana Lopez, PT Evaluation Information Assessment Status Discharge Diagnosis bilateral knee pain Onset November 2022 Subjective Information my knee pain is not as sharp, more of a dull ache now; have been doing the exercises; walking is better, can go further before pain starts; is doing everything at home, but slower; is still going to cardiac rehab; have seen ortho dr about L TKR, but cannot get due to cardiac stent, have to wait until after November; Reported Pain Level Pain Score Self Report Additional Pain Score Comments pain range of 3-6/10 in L knee, dull ache, medial L knee walking about 20 minute tolerance decrease pain- sit/rest; have not taken tramadol in the past week; reinforced use of ice and rest to manage pain; he has a knee brace, but states it hurts his thigh with the velcro strap; Assessment PT Clinical Summary Deacon has received a total of 10 PT sessions. He is awaiting cardiac clearance for L TKR. Compared to the last reevaluation: pain has decreased from 6-8/10 to 3-6/10; reported walking tolerance from 10 to 20 minute tolerance; is no longer taking tramadol for pain; 2 minute walking test distance increased from 380' to 525' and did not report pain increase; increase strength of bilateral hip and knee strength with mat and standing exercises, but continues to have decreased stability with single leg standing; increase flexibility of anterior hip/quad length with prone knee flexion 10' bilateral; indep with HEP, using resistance bands. The goals were achieved, except single leg standing time with good stability. Discharge from PT services, to continue with HEP and activity as knee pain allows. Plan of Care PT Services Indicated No
== END 2023-04-06 10:03 | disposition home or self-care (01) ==
LOC: ANHPT 08:00
PROVIDERS: PCP Internal Medicine; Visit Provider Internal Medicine
DX: E11.9 Type 2 diabetes mellitus without complications (principal); M25.561 Pain in right knee; M25.562 Pain in left knee
CPT/HCPCS: 97110; 97140; 97161; 97530

== ENCOUNTER 2023-04-29 02:54 | Day surgery (SDC) | payer MEDICARE, SELFPAY ==
[2023-04-22 09:45] VITALS: BMI 28.9
--- NOTE | 2023-04-27 09:46 | SUR.PREOP ---
Patient called regarding upcoming procedure. Reviewed preop instructions, appointment times, and procedure prep.
[2023-04-29 06:19] VITALS: BP 136/73; PULSE 70; RESP 20; TEMP 35.7; O2SAT 97; BMI 29.7
[2023-04-29] MEDS: LACTATED RINGERS 1,000 ML 150 ML IV CONT (06:35)
[2023-04-29 06:38] LABS: Glucose Point of Care 127 mg/dl (65-105)
--- NOTE | 2023-04-29 07:23 | WPDANESEPPF ---
Anes - Initial Pre Proc Eval Procedure: Operation Date: 04/29/23 07:30 Proposed Procedures p Esophagogastroduodenoscopy - Honorio Rdz DO Date/Time: 04/29/23 07:23 Surgeon: Honorio Rdz DO Pre Op Diagnosis: dysphagia Patient Data Age: 68 Gender: M Height: 1.8 m Weight: 96.7 kg Last Vital Signs Temp 96.3 F L 04/29/23 06:19 Pulse 70 04/29/23 06:19 Resp 20 04/29/23 06:19 BP 136/73 04/29/23 06:19 Pulse Ox 97 04/29/23 06:19 O2 Del Method Room Air 04/29/23 06:19 Allergies Allergy/AdvReac Type Severity Reaction Status Date / Time No Known Allergies Allergy Verified 04/29/23 06:18 Home Medications Medication Instructions Recorded Confirmed Type clopidogrel 75 mg tablet 75 mg PO DAILY 07/04/19 04/22/23 History ezetimibe 10 mg tablet 10 mg PO DAILY 07/04/19 04/22/23 History fluvoxamine 100 mg tablet 100 mg PO DAILY 07/04/19 04/22/23 History lisinopril 5 mg tablet 5 mg PO DAILY 07/04/19 04/22/23 History metformin 1,000 mg tablet 1,000 mg PO DAILY #90 tabs 07/06/19 04/22/23 Rx amlodipine 2.5 mg tablet 2 mg PO DAILY 01/10/20 04/22/23 History finasteride 5 mg tablet 5 mg PO DAILY 01/10/20 04/22/23 History metoprolol tartrate 25 mg tablet 25 mg PO DAILY 07/13/21 04/22/23 History Laboratory Tests 04/29/23 06:31 POC Capillary Glucose 127 H mg/dl (65-105) Patient hx anesthesia problems: none Family hx anesthesia problems: none Results Review: All pre-operative results and documents have been reviewed as part of the pre-operative evaluation. [facility] Past Medical History Medical History Arthritis, lumbar spine BMI 33.0-33.9,adult Closed fracture of lateral portion of left tibial plateau Degenerative arthritis of knee, bilateral Heart disease Myocardial infarction Pain in both knees Vascular disease Surgical History Surgical History H/O foot surgery 06/2019 Dr. Puentes H/O heart artery stent History of heart surgery Triple bypass 2004 Pacemaker Stented coronary artery Family History Family History Mother Family history of chronic obstructive pulmonary disease Family history of coronary artery disease Heart disease Sibling Family history of coronary artery disease Family history of heart disease in male family member before age 55 Hypertension Lung cancer both brothers Father Family history of coronary artery disease Family history of congestive heart failure Family history of malignant neoplasm of brain Kidney disease Social History Social History Smoking packs per day: 1 Smoking cigarettes per day: 20.0 Years smoked: 25 Smoking pack-years: 25.00 Smoking status: Former smoker Second hand tobacco smoke exposure: No Substance use type: does not use Lack of Transportation: No Lack of Food: Never True Current Housing: I Have Housing Concerned About Future Housing: No Difficulty Paying Gas/Electric Bills: No Difficulty Paying for Meds: No Currently Unemployed: No Education: Trade/Vocational Certificate Difficulty w/ Childcare or Family Care: No Living arrangements: alone Occupation/Education: retired Additional occupation/education comments: Retired [employer] Final PreProcedure Day of Procedure 04/29/23 07:23 Patient weight: obese Heart: regular rate and rhythm Lungs: clear to auscultation Airway: Mallampati scale class II Neurological: alert and oriented Last oral intake: >/= 8 hours ASA classification: III Emergent: no Anesthetic plan: proceed Anesthesia type and monitoring: general GIVS and standard monitoring Results Review: All pre-operative results and documents have been reviewed as part of the pre-operative evaluation. Informed Consent: The patient's an
--- NOTE | 2023-04-29 07:33 | PM.IMHP ---
H&P: HPI History of Present Illness Date/Time: 04/29/23 07:33 Chief Complaint: Dysphagia Narrative: This is a 60-year-old man who presents with intermittent difficulties eating. He has occasional regurgitation but denies any real significant difficulty swallowing solid food. He does not recall what causes this. It is intermittent and he can go periods of time without any symptoms. He does have occasional heartburn or acid reflux as well. Review of Systems Review of Systems: All systems reviewed & are unremarkable except as noted in HPI and below Constitutional: Constitutional: Denies chills, Denies fever(s), Denies headache(s) and Denies weight loss Eyes: Eyes: Denies change in vision ENT: Denies dizziness, Denies headache(s), Denies neck mass and Denies throat swelling Cardiovascular: Cardiovascular: Denies chest pain, Denies lightheadedness and Denies dyspnea Respiratory: Respiratory: Denies cough, Denies dyspnea and Denies wheezing Gastrointestinal: Gastrointestinal: Denies abdominal pain, Denies change in bowel habits, Denies nausea and Denies vomiting Genitourinary: Genitourinary: Denies hematuria and Denies dysuria Musculoskeletal: Musculoskeletal: Reports as per HPI Integumentary/Breasts: Skin/Breast: Reports as per HPI Neurologic: Denies dizziness and Denies headache(s) Allergic/Immunologic: Allergic/Immunologic: Denies throat swelling and Denies wheezing [facility] Past Medical History Medical History Arthritis, lumbar spine BMI 33.0-33.9,adult Closed fracture of lateral portion of left tibial plateau Degenerative arthritis of knee, bilateral Heart disease Myocardial infarction Pain in both knees Vascular disease Surgical History Surgical History H/O foot surgery 06/2019 Dr. Puentes H/O heart artery stent History of heart surgery Triple bypass 2004 Pacemaker Stented coronary artery Family History Family History Mother Family history of chronic obstructive pulmonary disease Family history of coronary artery disease Heart disease Sibling Family history of coronary artery disease Family history of heart disease in male family member before age 55 Hypertension Lung cancer both brothers Father Family history of coronary artery disease Family history of congestive heart failure Family history of malignant neoplasm of brain Kidney disease Social History Social History Smoking packs per day: 1 Smoking cigarettes per day: 20.0 Years smoked: 25 Smoking pack-years: 25.00 Smoking status: Former smoker Second hand tobacco smoke exposure: No Substance use type: does not use Lack of Transportation: No Lack of Food: Never True Current Housing: I Have Housing Concerned About Future Housing: No Difficulty Paying Gas/Electric Bills: No Difficulty Paying for Meds: No Currently Unemployed: No Education: Trade/Vocational Certificate Difficulty w/ Childcare or Family Care: No Living arrangements: alone Occupation/Education: retired Additional occupation/education comments: Retired Meds Home Medications and Allergies Home Medications Medication Instructions Recorded Confirmed Type clopidogrel 75 mg tablet 75 mg PO DAILY 07/04/19 04/22/23 History ezetimibe 10 mg tablet 10 mg PO DAILY 07/04/19 04/22/23 History fluvoxamine 100 mg tablet 100 mg PO DAILY 07/04/19 04/22/23 History lisinopril 5 mg tablet 5 mg PO DAILY 07/04/19 04/22/23 History metformin 1,000 mg tablet 1,000 mg PO DAILY #90 tabs 07/06/19 04/22/23 Rx amlodipine 2.5 mg tablet 2 mg PO DAILY 01/10/20 04/22/23 History finasteride 5 mg tablet 5 mg PO DAILY 01/10/20 04/22/23 History metoprolol tartrate 25 mg tablet 25 mg PO DAILY 07/13/21 04/22/23 History Allergies Allergy/A
[2023-04-29 07:58] VITALS: BP 138/90; PULSE 73; RESP 20; O2SAT 98
[2023-04-29 08:08] VITALS: BP 121/70; PULSE 70; RESP 20; O2SAT 98
[2023-04-29 08:18] VITALS: BP 126/81; PULSE 70; RESP 16; O2SAT 97
== END 2023-04-29 08:34 | disposition home or self-care (01) ==
PROVIDERS: PCP Internal Medicine; Visit Provider Surgery
PROC: 0DJ08ZZ Inspection of Upper Intestinal Tract, Via Natural or Artificial Opening Endoscopic (ICD-10-PCS; CPT 43235; principal; 2023-04-29 07:30)
DX: K22.2 Esophageal obstruction (principal); K21.00 Gastro-esophageal reflux disease with esophagitis, without bleeding; K44.9 Diaphragmatic hernia without obstruction or gangrene; K29.00 Acute gastritis without bleeding; I51.9 Heart disease, unspecified; I25.2 Old myocardial infarction; Z95.5 Presence of coronary angioplasty implant and graft; Z95.1 Presence of aortocoronary bypass graft; Z87.891 Personal history of nicotine dependence; E66.9 Obesity, unspecified; Z68.29 Body mass index [BMI] 29.0-29.9, adult; Z79.02 Long term (current) use of antithrombotics/antiplatelets; Z79.84 Long term (current) use of oral hypoglycemic drugs
CPT/HCPCS: 43249; 43239; 82948; 87081; 88305; C1726; J2704; J7120

== ENCOUNTER 2023-09-03 14:00 | Outpatient (RCR) | payer MEDICARE, SELFPAY ==
--- NOTE | 2023-07-27 12:19 | PTOPEVAL1 ---
Assessment and note entered by Gautam Lacy, PT Evaluation Information Assessment Status Evaluation Diagnosis Midline low back pain without sciatica, right glute pain Onset 2020 Subjective Information Reports that he is having significant pain in the right glute, but also having pain in the left intermittently. He has been having issues with the right knee and is not able to have anything done for a year due to cardiac stents November of 2022. Pain will at times radiate all the way down is leg into his calves. He had therapy last year and was able to see some improvement with combination of dry needling and cortisone injection. He likes to ride horseback and has been unable to do so. Does not trust the strength in his left leg to do several daily activities. Would like to get a knee replacement but has to wait secondary to recent cortisone injection. Reported Pain Level Pain Score 7: Self Report Assessment PT Clinical Summary Patient presents with hip, back and left knee pain . Limited mobility in all listed joints with core and hip weakness. Will benefit from skilled therapy to address these deficits to maximize function and reduce pain. Plan of Care Interventions Hot Pack/Cold Pack,Manual Therapy,Neuro Re- education,Therapeutic Activities,Therapeutic Exercise PT Services Indicated Yes Treatment Frequency and 1x/week for 6 visits Duration These treatments will address the objective and functional deficits as defined above. The patient will be advanced safely and appropriately in order for the patient to progress towards his/her prior level of function. Additional exercises will be introduced and as well as a comprehensive home exercise program upon discharge, if needed, ?to ensure carryover of functional gains achieved in the clinic. This treatment plan has been reviewed and agreement upon by the patient.
--- NOTE | 2023-07-27 12:20 | OPREHPOC ---
Outpatient Therapy Plan of Care This is a Multidisciplinary Plan of Care that may contain components documented by all disciplines (PT, OT, and ST.) PT Problem 1 PT Problem #1 Knowledge Deficit PT Goal 1 Goal [place] with HEP Target Visit 3 PT Problem 2 PT Problem #2 Impaired Flexibility PT Goal 1 Goal Improve R hip abduction to 35 degrees to reduce hip capsule restriction Target Visit 6 PT Problem 3 PT Problem #3 Impaired Flexibility PT Goal 1 Goal Demonstrate minimal piriformis restriction with passive motion to improve gross L hip capsular mobility Target Visit 6 PT Problem 4 PT Problem #4 Impaired Strength PT Goal 1 Goal Improve gabriella hip abduction strength to4+/5 to improve lateral stability with gait and ADLs Target Visit 6
--- NOTE | 2023-09-03 14:56 | PTOPDC ---
Assessment and note entered by Gautam Lacy, PT Evaluation Information Assessment Status Discharge Diagnosis Midline low back pain without sciatica, right glute pain Onset 2020 Subjective Information Reports that he has scheduled ablation week of September. Overall struggling with pain since injection wore off. Had some relief from dry needling but it has not lasted a long time. Reported Pain Level Pain Score 4: Self Report Assessment PT Clinical Summary Patient reports that he is still struggling with back pain since his last injection wore off. he is currently scheduled for a lumbar nerve ablation at the beginning of next month. We plan to hold off on therapy until after the procedure to address need for gross hip and core strengthening. Plan of Care PT Services Indicated D/C to HEP
--- NOTE | 2023-09-03 14:56 | OPREHPOC ---
Outpatient Therapy Plan of Care This is a Multidisciplinary Plan of Care that may contain components documented by all disciplines (PT, OT, and ST.) PT Problem 1 PT Problem #1 Knowledge Deficit PT Goal 1 Goal [place] with HEP Target Visit 3 Progress Met PT Problem 2 PT Problem #2 Impaired Flexibility PT Goal 1 Goal Improve R hip abduction to 35 degrees to reduce hip capsule restriction Target Visit 6 Progress Partially Met PT Problem 3 PT Problem #3 Impaired Flexibility PT Goal 1 Goal Demonstrate minimal piriformis restriction with passive motion to improve gross L hip capsular mobility Target Visit 6 Progress Partially Met PT Problem 4 PT Problem #4 Impaired Strength PT Goal 1 Goal Improve gabriella hip abduction strength to4+/5 to improve lateral stability with gait and ADLs Target Visit 6 Progress Partially Met Comment Improved
== END 2023-09-03 15:59 | disposition home or self-care (01) ==
LOC: ANHGOSHPT 14:00
PROVIDERS: PCP Internal Medicine
DX: M54.50 Low back pain, unspecified (principal); G89.29 Other chronic pain
CPT/HCPCS: 97110; 97140; 97161

== ENCOUNTER 2024-05-13 10:48 | Emergency (ER) | payer MEDICARE, SELFPAY ==
--- NOTE | ~2024-05-13 | XR_ITS ---
XR knee LT 3V DATE: 05/13/2024 13:41 INDICATION: Left knee pain. History of knee replacement on 04/24/2024 TECHNIQUE: 3 views COMPARISON: None FINDINGS: Status post left knee arthroplasty without patellar resurfacing. Mild to moderate knee joint effusion is suggested. There is normal alignment at the knee joint. No fracture, dislocation, periosteal reaction or bone destruction is detected. Femoral artery calcifications, mild calcification of the anterior tibial artery. IMPRESSION: Mild to moderate knee joint effusion Status post left knee arthroplasty Reviewed, dictated and finalized at location A. 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
[2024-05-13 10:58] VITALS: BP 133/71; PULSE 81; RESP 17; TEMP 36.4; O2SAT 100
[2024-05-13 12:15] VITALS: RESP 19; O2SAT 98
[2024-05-13 12:17] VITALS: BP 172/70; PULSE 68; RESP 20; O2SAT 100
[2024-05-13] MEDS: KETOROLAC 30 MG/ML VIAL (*BKC) IM (13:48)
--- NOTE | 2024-05-13 14:47 | ED_ITS ---
HPI - Recheck/Abnormal Lab/Rx General Chief Complaint: Recheck/Abnormal Lab/Rx Stated Complaint: pain post knee surgery Time Seen by Provider: 05/13/24 12:17 Source: patient Mode of arrival: ambulatory Limitations: no limitations History of Present Illness HPI narrative: This is a 69 year old male who recently underwent a left total knee replacement 19 days ago [address] a Dr. Noel at [facility], presents to the emergency department complaining of left knee swelling and pain for the past 3 days. The patient states he was at physical therapy and underwent massage of the knee that resulted in knee swelling. He rates the pain 11/21 though denies fevers. He complains of some limited range of motion due to swelling but has no other complaints at this time. Related Data Home Medications Medication Instructions Recorded Confirmed clopidogrel 75 mg tablet 75 mg PO DAILY 07/04/19 04/22/23 ezetimibe 10 mg tablet 10 mg PO DAILY 07/04/19 04/22/23 lisinopril 5 mg tablet 5 mg PO DAILY 07/04/19 04/22/23 amlodipine 2.5 mg tablet 2 mg PO DAILY 01/10/20 04/22/23 finasteride 5 mg tablet 5 mg PO DAILY 01/10/20 04/22/23 metoprolol tartrate 25 mg tablet 25 mg PO DAILY 07/13/21 04/22/23 Allergies Allergy/AdvReac Type Severity Reaction Status Date / Time No Known Allergies Allergy Verified 10/22/23 08:59 Review of Systems Review of Systems: All systems reviewed & are unremarkable except as noted in HPI and below PMFSH Past Medical History Medical History Arthritis, lumbar spine BMI 33.0-33.9,adult Closed fracture of lateral portion of left tibial plateau Degenerative arthritis of knee, bilateral Heart disease Myocardial infarction Pain in both knees Vascular disease Surgical History Surgical History H/O foot surgery 06/2019 Dr. Puentes H/O heart artery stent History of heart surgery Triple bypass 2003 Pacemaker Stented coronary artery Family History Family History Mother Family history of chronic obstructive pulmonary disease Family history of coronary artery disease Heart disease Sibling Family history of coronary artery disease Family history of heart disease in male family member before age 55 Hypertension Lung cancer both brothers Father Family history of coronary artery disease Family history of congestive heart failure Family history of malignant neoplasm of brain Kidney disease Social History Social History Smoking packs per day: 1 Smoking cigarettes per day: 20.0 Years smoked: 25 Smoking pack-years: 25.00 Smoking status: Former smoker Second hand tobacco smoke exposure: No Alcohol intake: never Substance use type: does not use Do You Feel Safe in your Home?: Yes Lack of Transportation: No Lack of Food: Never True Current Housing: I Have Housing Concerned About Future Housing: No Difficulty Paying Gas/Electric Bills: No Difficulty Paying for Meds: No Currently Unemployed: No Education: Trade/Vocational Certificate Difficulty w/ Childcare or Family Care: No Living arrangements: alone Occupation/Education: retired Additional occupation/education comments: Retired Exam Narrative: GENERAL: Well-developed, well-nourished, and in no acute distress. HEAD: Normocephalic, atraumatic. EYES: PERRLA and EOMI. CHEST: Clear to auscultation. No respiratory distress. No wheezes rales or rhonchi HEART: Regular rate and rhythm. No murmur heard. Normal peripheral pulses. ABDOMEN: Soft, nontender, nondistended, normal active bowel sounds. EXTREMITIES: The left knee appears swollen and erythematous compared to the right. There is a clean, well healing surgical wound over the anterior aspect of the left knee that is not erythematous, is well approximated with no changes concerning for bleeding. Range of motion of the left knee limited by pain. Normal range of motion of all other extremities. No edema. SKIN: Warm, dry, no rash. NEURO: Alert and oriented x3. No focal deficit. Moving all 4 limbs spontaneously PSYCH: Normal mood and affect. Course Course Emergency Course: 17:15 - Arthrocentesis demonstrates 109 RBCs though only 885 nucleated cells with 36% neutrophils. I suspect a hemarthrosis without changes concerning for septic arthritis. Hemoglobin 13 with platelets of 408. White blood cell count not elevated. CRP less than 0.5 with an ESR 30. Gram stain reportedly negative for organisms. 17:58 - The patient is requesting to be discharged. He states his right is present. I do not anticipate the need for transfer or other acute intervention at this time will discharge with recommendation for RICE therapy, NSAIDs for pain and Orthopedic surgery follow-up. I discussed the findings and recommendations with the patient. Discussed return and emergency precautions including signs/symptoms of septic arthritis and neurovascular compromise. The patient voiced understanding and agreement with the plan. All questions answered to his satisfaction. 18:30 -I discussed the patient with [facility] orthopedic surgeon, Dr. Ardon who agrees; no acute surgical intervention or need for transfer is present at this time. Will discharge with RICE therapy recommendations. Vital Signs Vital signs: Vital Signs Temperature 97.6 F 05/13/24 10:58 Pulse Rate 81 05/13/24 10:58 Respiratory Rate 17 05/13/24 10:58 Blood Pressure 133/71 05/13/24 10:58 Pulse Oximetry 100 05/13/24 10:58 Oxygen Delivery Room Air 05/13/24 10:58 Temperature 97.6 F 05/13/24 10:58 Pulse Rate 68 05/13/24 12:17 Respiratory Rate 20 05/13/24 12:17 Blood Pressure 172/70 H 05/13/24 12:17 Pulse Oximetry 100 05/13/24 12:17 Oxygen Delivery Room Air 05/13/24 10:58 Procedures Joint Aspiration/Injection Joint Asp./Inject. 1: Joint Aspiration Date: 05/13/24 Joint Aspiration Time: 14:20 Time Out Performed: Yes Side of body: left Joint Aspirated: knee Ultrasound Guidance: Yes Skin Prep: Povidone-Iodine1% Local Anesthetic: lidocaine 1% Amount of anesthesia used (mL): 5 Needle Size Used: 18G Fluid Obtained: bloody Total fluid obtained (mL): 20 Patient Tolerated Procedure: well and no complications Complications: none MDM - Recheck/Abnormal Lab/Rx MDM Narrative Medical decision making narrative: Plan: Labs, imaging, arthrocentesis, pain control, reassess Differential Diagnosis Differential diagnosis: Likely other (Hemarthrosis, inflammatory arthritis, septic arthritis, fracture, other) Lab Data 05/13/24 16:03 Labs: Lab Results 05/13/24 05/13/24 Range/Units 14:48 16:03 WBC 9.5 (4.5-10.0) K/mm3 RBC 4.34 L (4.6-6.20) M/mm3 Hgb 13.4 L (14.0-18.0) g/dL Hct 39.3 L (42.0-52.0) % MCV 90.6 (80-100) fl MCH 30.9 (26-34) pg MCHC 34.1 (32-36) g/dl RDW 12.7 (11.5-14.5) % Plt Count 408 H D (150-375) k/mm3 MPV 9.1 (7.4-10.4) fl Immature Gran % (Auto) 0.3 (0-0.5) % Neut % (Auto) 66.0 (45.5-73.1) % Lymph % (Auto) 21.2 (18.3-44.2) % Cotton % (Auto) 9.9 H (2.6-8.5) % Eos % (Auto) 1.8 (0-4.4) % Baso % (Auto) 0.8 (0.2-1.2) % Lymph # (Auto) 2.01 (0.9-3.2) K/mm3 Cotton # (Auto) 0.9 H (0.1-0.6) K/mm3 Eos # (Auto) 0.2 (0-0.3) K/mm3 Baso # (Auto) 0.1 (0.0-0.1) K/mm3 Abs Immat Gran (auto) 0.03 (0.00-0.031) K/mm3 Absolute Neuts (auto) 6.3 (1.3-6.7) K/mm3 Absolute Nucleated RBC 0.000 (0.0-0.012) K/mm3 Nucleated RBC % 0.0 (0.0-0.2) % ESR 30 H (0-20) mm/hr C-Reactive Protein < 0.5 (<1.0) mg/dL Synovial Source Lt knee syn fluid Synovial Color Red (Colorless) Synovial Appearance Bloody A (Clear) Synovial RBC [id number] H (0-0) /uL Synovial Nuc Cells 885 H (0-200) /uL Synovial Neutrophils 36 H (0-25) % Synovial Lymphocytes 28 % Synovial Monocytes 28 % Synovial Macrophages 7 % Synovial Other Cells 1 % Synovial Crystals None seen (None Seen) Synovial Glucose Pending Synovial Total Protein Pending Discharge Plan Discharge Clinical Impression: Acute pain of left knee, Hemarthrosis of knee, left Patient Disposition: Home, Self-Care Condition: Stable Instructions: Antibiotic Form, Hemarthrosis (ED) Additional Instructions: You were seen in the emergency department. A tap is not concerning for infection and shows red blood cells. I suspect this may be related to your physical therapy. I recommend following up with your orthopedic surgeon and primary care doctor. If you develop fevers with severe knee pain, the leg appears blue/cold, or if you have other emergent concerns for life, limb, or eyesight, return to the emergency department. Patient Language: Japanese Prescriptions: New hydrocodone-acetaminophen 5-325 mg tablet 1 tablet PO BID PRN (Reason: pain, severe) Qty: 10 0RF No Action finasteride 5 mg tablet 5 mg PO DAILY aspirin 81 mg tablet,delayed release (DR/EC) 81 mg PO DAILY Qty: 100 0RF metoprolol tartrate 25 mg tablet 25 mg PO DAILY pantoprazole 40 mg tablet,delayed release (DR/EC) 40 mg PO QAM Qty: 30 5RF Rx Instructions: Take 30 min before first meal of day clopidogrel 75 mg tablet 75 mg PO DAILY ezetimibe 10 mg tablet 10 mg PO DAILY lisinopril 5 mg tablet 5 mg PO DAILY metformin 1,000 mg tablet 1,000 mg PO DAILY Qty: 90 1RF amlodipine 2.5 mg tablet 2 mg PO DAILY Follow-up/Referrals: Zbigniew Noel MD [Other] - 1 Week Nick,Perry Goss MD [Primary Care Provider] - 2 Weeks Time of Disposition: 17:58
[2024-05-13 16:09] LABS: Basophils Absolute Auto 0.1 K/mm3 (0.0-0.1); Basophils Percent Auto 0.8 % (0.2-1.2); Eosinophils Absolute Auto 0.2 K/mm3 (0-0.3); Eosinophils Percent Auto 1.8 % (0-4.4); Hematocrit 39.3 % (42.0-52.0); Hemoglobin 13.4 g/dL (14.0-18.0); Immature Granulocyte Absolute 0.03 K/mm3 (0.00-0.031); Immature Granulocyte Percent A 0.3 % (0-0.5); Lymphocytes Absolute Auto 2.01 K/mm3 (0.9-3.2); Lymphocytes Percent Auto 21.2 % (18.3-44.2); Mean Corpuscular HGB Conc 34.1 g/dl (32-36); Mean Corpuscular Hemoglobin 30.9 pg (26-34); Mean Corpuscular Volume 90.6 fl (80-100); Mean Platelet Volume 9.1 fl (7.4-10.4); Monocytes Absolute Auto 0.9 K/mm3 (0.1-0.6); Monocytes Percent Auto 9.9 % (2.6-8.5); Neutrophils Absolute Auto 6.3 K/mm3 (1.3-6.7); Platelet Count Result 408 k/mm3 (150-375); Red Blood Count 4.34 M/mm3 (4.6-6.20); Red Cell Distribution Width 12.7 % (11.5-14.5); White Blood Count 9.5 K/mm3 (4.5-10.0)
[2024-05-13 16:21] LABS: CRP < 0.5 mg/dL (<1.0)
[2024-05-13 16:33] LABS: Appearance Synovial Fluid Bloody (Clear); Color Synovial Fluid Red (Colorless); Lymphocytes Synovial Fluid 28 %; Monocytes Synovial Fluid 28 %; Neutrophils Synovial Fluid 36 % (0-25); Nucleated Cell Synovial Fluid 885 /uL (0-200); RBC Synovial Fluid 109000 /uL (0-0); Source Synovial Fluid Lt Knee Syn Fluid
[2024-05-13 16:34] LABS: Macrophages Synovial Fluid 7 %; Other Cells Synovial Fluid 1 %
[2024-05-13 16:41] LABS: Crystals Synovial Fluid None Seen (None Seen)
--- NOTE | 2024-05-13 16:46 | PC.NURSE ---
Jose from lab called to inform mod WBC and no organisms found in gram stain. Dr. Flores made aware.
[2024-05-13 16:51] LABS: Erythrocyte Sedimentation Rate 30 mm/hr (0-20)
[2024-05-16 17:53] LABS: Glucose Synovial Fluid 87 mg/dL; Total Protein Synovial Fluid 5.9 g/dL (1.0-3.0)
== END 2024-05-13 18:19 | disposition home or self-care (01) ==
PROVIDERS: Emergency Provider Preventive Medicine Aerospace Medicine; PCP Internal Medicine
DX: M25.062 Hemarthrosis, left knee (principal); Z98.890 Other specified postprocedural states; I51.9 Heart disease, unspecified; I25.2 Old myocardial infarction; I99.9 Unspecified disorder of circulatory system; M47.816 Spondylosis without myelopathy or radiculopathy, lumbar region; M17.0 Bilateral primary osteoarthritis of knee; Z96.652 Presence of left artificial knee joint; Z95.5 Presence of coronary angioplasty implant and graft; Z95.1 Presence of aortocoronary bypass graft; Z95.0 Presence of cardiac pacemaker; Z87.891 Personal history of nicotine dependence
CPT/HCPCS: 20610; 36415; 73562; 82945; 84157; 85025; 85652; 86140; 87070; 87075; 87205; 89051; 89060; 96372; 99283; J1885

== ENCOUNTER 2024-06-21 12:19 | Outpatient (CLI) | payer MEDICARE, SELFPAY ==
--- NOTE | 2024-06-21 12:27 | ECG_ITS ---
Test Date: 2024-06-21 12:42:55 Measurements Intervals [place] Rate: 70 P: 200 UT: 293 QRS: -16 QRSD: 117 T: 266 QT: 407 QTc: 439 Interpretive Statements ELECTRONIC ATRIAL PACEMAKER left ventricular hypertrophy with T-wave changes ABNORMAL RHYTHM ECG No previous ECG available for comparison Electronically Signed On 06-22-2024 16:27:16 DOWEL POINTER by Mayur Nava M.D.
[2024-06-21 16:07] LABS: Anion Gap 11 mmol/L (4-12); Blood Urea Nitrogen 23 mg/dL (9-20); Calcium 9.3 mg/dL (8.4-10.2); Carbon Dioxide 26 mmol/L (22-30); Chloride 102 mmol/L (98-107); Estimated Glomerular Filt Rate > 60; Glucose 58 mg/dL (65-110); Potassium 4.3 mmol/L (3.4-5.0); Sodium 139 mmol/L (137-145)
== END 2024-06-21 12:20 | disposition home or self-care (01) ==
PROVIDERS: Anesthesiology; PCP Internal Medicine; Visit Provider Urology
DX: Z01.818 Encounter for other preprocedural examination (principal); I10 Essential (primary) hypertension; I25.10 Atherosclerotic heart disease of native coronary artery without angina pectoris; E11.9 Type 2 diabetes mellitus without complications; N32.81 Overactive bladder
CPT/HCPCS: 36415; 80048; 87086; 93005

== ENCOUNTER 2024-07-03 17:07 | Emergency (ER) | payer MEDICARE, SELFPAY ==
--- NOTE | ~2024-07-03 | CT_ITS ---
CLINICAL INDICATION: COMPARISON: . TECHNIQUE: Multiple contiguous axial images of the abdomen and pelvis were performed following the ad ministration of with 100 mL Omnipaque-350 intravenous contrast The dose-length product (DLP) was 794.53 mGy-cm. Automated exposure control and iterative reconstruction technique were employed. FINDINGS/OBSERVATIONS: Visualized lower thorax: The bilateral lung bases are clear. The heart is enlarged, without pericardial effusion. Small hiatal hernia is present. Liver: The liver enhances homogeneously and is not enlarged measuring 17 cm in longitudinal dimension . Gallbladder and biliary system: The gallbladder is decompressed, and otherwise unremarkable. Pancreas: The pancreas enhances homogeneously without ductal dilatation. Spleen: The spleen enhances homogeneously and is not enlarged measuring 9 cm in longitudinal dimension. Kidneys: Multiple 2 and 3 mm nonobstructing stones within the bilateral kidneys. The remainder of the bilateral kidneys otherwise enhance symmetrically without hydronephrosis or obst ructing renal calculi. Adrenal glands: Unremarkable. Gastrointestinal tract: Colonic diverticulosis without surrounding inflammatory change (except within the sigmoid colon, imme diately adjacent to the patient's bladder, likely as a result of bladder inflammation). Appendix: The appendix is not definitively visualized. However, no pericecal inflammatory change is identified suggest the presence of acute appendicitis. Vasculature: Densely calcified atherosclerotic disease. Lymph nodes: No pathologically enlarged or morphologically suspicious lymph nodes within the retroperitoneum or at the root of the mesentery. Pelvic structures: The bladder is decompressed with Crane catheter with significant surrounding inflammatory change. The prostate gland is not enlarged. Body wall and musculoskeletal: Small fat-containing umbilical hernia. No significant degenerative disease within the lower thoracic or lumbosacral spine. No lytic or blastic lesions identified. IMPRESSION: Significant surrounding inflammatory change within the decompressed bladder which demonstrates thicke nba sena. Colonic diverticulosis. Bilateral nonobstructing renal calculi Reviewed, dictated and finalized at location A. R MACHINE OPERATOR IMPRESSION: Significant surrounding inflammatory change within the decompressed bladder whi ch demonstrates thickened sena. Colonic diverticulosis. Bilateral nonobstructing renal calculi
[2024-07-03 17:12] VITALS: BP 173/73; PULSE 94; RESP 18; TEMP 36.4; O2SAT 99
--- NOTE | 2024-07-03 18:07 | ECG_ITS ---
Test Date: 2024-07-03 19:08:39 Measurements Intervals [place] Rate: 70 P: 179 SD: 275 QRS: -15 QRSD: 129 T: -77 QT: 397 QTc: 431 Interpretive Statements ELECTRONIC ATRIAL PACEMAKER LEFT VENTRICULAR HYPERTROPHY AND ST-T CHANGE [VOLTAGE CRITERIA PLUS ST/T ABNORMALITY] Compared to ECG 06/21/2024 12:42:55 ST (T wave) deviation now present Electronically Signed On 07-04-2024 10:40:58 COMMUNITY ENGAGEMENT LEADER by Mayur Nava M.D.
--- NOTE | 2024-07-03 18:09 | ED.MALEGU ---
HPI - Male Genitourinary General Chief complaint: Urogenital-Male <Linda Thompson APRN - Last Filed: 07/03/24 18:14> Stated complaint: hematuria, retention (recent bladder procedure) <Linda Thompson APRN - Last Filed: 07/03/24 18:14> Time Seen by Provider: 07/03/24 18:00 <Linda Thompson APRN - Last Filed: 07/03/24 18:14> Focused HPI: Patient is a 69-year-old male who presents to the ER with complaints of abdominal distension and blood in his urine. He reports he recently had bladder surgery (06/27/24) where they did a biopsy on a ?spot. Patient reports he went home with a catheter but has since had it removed. He reports yesterday he started noticing blood in his urine. Patient reports today he has noticed clots in his urine and has been unable to urinate for approximately 6 hours. He reports he spoke with his urologist who advised in to drink more water and report to the ER if his inability to urinate continues. Patient endorses a history of hypertension, diabetes, triple bypass, left knee replacement. He denies any back pain, constipation, chest pain, recent fevers, or lower extremity edema. GENERAL: Well-appearing, well-nourished, and in no acute distress. HEAD: Normocephalic, atraumatic. CHEST: Clear to auscultation. ?No respiratory distress. HEART: Regular rate and rhythm.? NEURO: ?Alert and oriented x3. Patient screened in triage and initial orders placed.? ?Additional care and disposition to be based upon?diagnostic testing and treatment. <Linda Thompson APRN - Last Filed: 07/03/24 18:14> Related Data Home medications: Home Medications ?Medication ?Instructions ?Recorded ?Confirmed ?Last Taken ?Type clopidogrel 75 mg tablet 75 mg PO DAILY 07/04/19 06/27/24 06/19/24 History ezetimibe 10 mg tablet 10 mg PO DAILY 07/04/19 06/27/24 06/27/24 History lisinopril 5 mg tablet 5 mg PO DAILY 07/04/19 06/27/24 06/27/24 History amlodipine 2.5 mg tablet 2 mg PO DAILY 01/10/20 06/27/24 06/27/24 History finasteride 5 mg tablet 5 mg PO DAILY 01/10/20 06/27/24 06/27/24 History metoprolol tartrate 25 mg tablet 25 mg PO DAILY 07/13/21 06/27/24 06/27/24 History fenofibrate nanocrystallized 145 145 mg PO DAILY 06/13/24 06/27/24 06/27/24 History mg tablet meloxicam 7.5 mg tablet 7.5 mg PO PRN pain 06/13/24 06/27/24 Unknown History nitroglycerin 0.4 mg sublingual 0.4 mg sublingual Q5M PRN chest 06/13/24 06/13/24 Unknown History tablet pain <Linda Thompson APRN - Last Filed: 07/03/24 18:14> Allergies/Adverse reactions: Allergies Allergy/AdvReac Type Severity Reaction Status Date / Time No Known Allergies Allergy Verified 07/03/24 19:16 <Linda Thompson APRN - Last Filed: 07/03/24 18:14> Review of Systems Review of Systems: All systems are reviewed and are negative unless stated otherwise in the HPI. <Breezy Alvarado MD - Last Filed: 07/03/24 22:26> PMFSH Past Medical History Medical History: Medical History Myocardial infarction Degenerative arthritis of knee, bilateral Pain in both knees Closed fracture of lateral portion of left tibial plateau BMI 33.0-33.9,adult Arthritis, lumbar spine Vascular disease Heart disease <Linda Thompson APRN - Last Filed: 07/03/24 18:14> Surgical History Surgical History: Surgical History H/O heart artery stent Stented coronary artery Pacemaker History of heart surgery Triple bypass 2003 H/O foot surgery 06/2019 Dr. Puentes <Linda Thompson APRN - Last Filed: 07/03/24 18:14> Family History Family History: Family History Mother Family history of chronic obstructive pulmonary disease Family history of coronary artery disease Heart disease Sibling Family history of coronary artery disease Family history of heart disease in male family member before age 55 Hypertension Lung cancer both brothers Father Family history of coronary artery disease Family history of congestive heart failure Family history of malignant neoplasm of brain Kidney disease <Linda Thompson, MANAGER [employer]E - Last Filed: 07/03/24 18:14> Social History Social History: Social History Smoking packs per day: 1 Smoking cigarettes per day: 20.0 Years smoked: 22 Smoking pack-years: 22.00 Smoking status: Former smoker Second hand tobacco smoke exposure: No Smoking end date: 06/14/98 Alcohol intake: never Substance use: never Substance use type: does not use Do You Feel Safe in your Home?: Yes Lack of Transportation: No Lack of Food: Never True Current Housing: I Have Housing Concerned About Future Housing: No Difficulty Paying Gas/Electric Bills: No Difficulty Paying for Meds: No Currently Unemployed: No Education: Trade/Vocational Certificate Difficulty w/ Childcare or Family Care: No Living arrangements: alone Occupation/Education: retired Additional occupation/education comments: Retired Spiritual care concerns: No <Linda Thompson, MANAGER [employer] - Last Filed: 07/03/24 18:14> Exam Narrative: General: Alert, awake, afebrile, in no acute distress. HEENT: PERRL, no rhinorrhea, no post nasal drip, oropharynx clear. Neck: Trachea midline, no JVD, no lymphadenopathy. Cardiovascular: Regular rate and rhythm, no murmurs, rubs or gallops, no peripheral edema. Respiratory: Clear to auscultation bilaterally, no tachypnea, no wheezing, no rhonchi, no rubs, no respiratory distress. Abdomen: Soft, mild suprapubic tenderness to palpation, nondistended, no rebound, no guarding, no peritoneal signs. Musculoskeletal: No joint swelling or deformity, normal muscle tone. Skin: No rashes or petechia, no signs of infection. Psychiatric: Alert and oriented, normal behavior and judgment for situation. Neurological: Alert and oriented to person, place, and time. Follows all commands. No focal deficits, speech is clear and fluent. <Breezy Alvarado MD - Last Filed: 07/03/24 22:26> Course Vital Signs Vital signs: Vital Signs Temperature 97.6 F 07/03/24 17:12 Pulse Rate 94 07/03/24 17:12 Respiratory Rate 18 07/03/24 17:12 Blood Pressure 173/73 H 07/03/24 17:12 Pulse Oximetry 99 07/03/24 17:12 Oxygen Delivery Room Air 07/03/24 17:12 Temperature 97.6 F 07/03/24 17:12 Pulse Rate 70 07/03/24 22:01 Respiratory Rate 16 07/03/24 22:01 Blood Pressure 158/73 H 07/03/24 22:01 Pulse Oximetry 99 07/03/24 22:01 Oxygen Delivery Room Air 07/03/24 17:12 <Linda Thompson APRN - Last Filed: 07/03/24 18:14> Vital Signs Temperature 97.6 F 07/03/24 17:12 Pulse Rate 94 07/03/24 17:12 Respiratory Rate 18 07/03/24 17:12 Blood Pressure 173/73 H 07/03/24 17:12 Pulse Oximetry 99 07/03/24 17:12 Oxygen Delivery Room Air 07/03/24 17:12 Temperature 97.6 F 07/03/24 17:12 Pulse Rate 70 07/03/24 22:01 Respiratory Rate 16 07/03/24 22:01 Blood Pressure 158/73 H 07/03/24 22:01 Pulse Oximetry 99 07/03/24 22:01 Oxygen Delivery Room Air 07/03/24 17:12 <Breezy Alvarado MD - Last Filed: 07/03/24 22:26> MDM - Male Genitourinary MDM Narrative Medical decision making narrative: The patient was evaluated by myself in the emergency department. History is obtained from patient who is an independent historian and physical exam was performed. External medical records were reviewed at this time. IV was established and pertinent tests were ordered. Patient was administered 4 mg of IV morphine for pain and 4 mg IV Zofran for. Three way Crane catheter was placed at this and irrigated after bladder scan revealed 400 cc of urine. EKG was obtained at this time revealing a paced rhythm rate of 70 beats per minute, good capture, negative Sgarbossa. EKG currently pending official cardiology read. Laboratory results obtained revealing no acute process. Urinalysis revealed greater than 100 RBCs 11-20 white blood cells. Imaging studies obtained included CT abdomen pelvis with IV contrast which was independently interpreted by me revealing: Significant surrounding inflammatory change within the decompressed bladder which demonstrates thickened sena. Colonic diverticulosis. Bilateral nonobstructing renal calculi Differential diagnosis considerations include hematuria, bladder outlet obstruction, UTI. Comorbidities impacting this visit include recent urological procedure. I have evaluated and discussed social determinants of health with the patient that could potentially impact subsequent diagnosis and treatment plans. On repeat assessment of the patient, reevaluation revealed that the patient is doing well and is in no acute distress. Patient symptoms have improved since he arrived to our emergency department. Repeat vital signs were all reviewed and noted to be stable. Differential diagnosis and treatment plan were discussed with the patient at bedside. Patient agrees with discussion and after shared medical decision making agrees with discharge. All questions were answered to the patient's satisfaction. Patient will follow up with his urologist in 2-3 days. Patient was provided with strict return precautions and instructed to return to the emergency department if any new or worsening symptoms develop. The patient was discharged in stable condition. <Breezy Alvarado MD - Last Filed: 07/03/24 22:26> Lab Data Result diagrams: 07/03/24 19:10 07/03/24 19:10 <Linda Thompson APRN - Last Filed: 07/03/24 18:14> Labs: Lab Results 07/03/24 Range/Units 19:10 WBC 6.6 (4.5-10.0) K/mm3 RBC 4.39 L (4.6-6.20) M/mm3 Hgb 13.5 L (14.0-18.0) g/dL Hct 41.1 L (42.0-52.0) % MCV 93.6 (80-100) fl MCH 30.8 (26-34) pg MCHC 32.8 (32-36) g/dl RDW 12.9 (11.5-14.5) % Plt Count 263 (150-375) k/mm3 MPV 9.5 (7.4-10.4) fl Immature Gran % (Auto) 0.3 (0-0.5) % Neut % (Auto) 38.0 L (45.5-73.1) % Lymph % (Auto) 39.3 (18.3-44.2) % [place] % (Auto) 16.3 H (2.6-8.5) % Eos % (Auto) 5.2 H (0-4.4) % Baso % (Auto) 0.9 (0.2-1.2) % Lymph # (Auto) 2.58 (0.9-3.2) K/mm3 [place] # (Auto) 1.1 H (0.1-0.6) K/mm3 Eos # (Auto) 0.3 (0-0.3) K/mm3 Baso # (Auto) 0.1 (0.0-0.1) K/mm3 Abs Immat Gran (auto) 0.02 (0.00-0.031) K/mm3 Absolute Neuts (auto) 2.5 (1.3-6.7) K/mm3 Absolute Nucleated RBC 0.000 (0.0-0.012) K/mm3 Nucleated RBC % 0.0 (0.0-0.2) % PT 13.4 (11.1-14.7) Seconds INR 1.0 APTT 24.7 (22.3-36.8) Seconds Sodium 138 (137-145) mmol/L Potassium 4.6 (3.4-5.0) mmol/L Chloride 100 (98-107) mmol/L Carbon Dioxide 29 (22-30) mmol/L Anion Gap 9 (4-12) mmol/L BUN 22 H (9-20) mg/dL Creatinine 1.12 (0.7-1.3) mg/dL Estim Creat Clear Calc 59 ml/min Estimated GFR > 60 (59 - ) Glucose 98 (65-110) mg/dL Calcium 9.7 (8.4-10.2) mg/dL Total Bilirubin 0.5 (0.2-1.3) mg/dL AST 26 (17-59) U/L ALT 14 (6-50) U/L Alkaline Phosphatase 42 (38-126) U/L Troponin I 0.014 (0.000-0.034) ng/mL Total Protein 8.0 (6.3-8.2) g/dL Albumin 4.5 (3.5-5.1) g/dL Lipase 188 (23-300) U/L Urine Color Red H (Yellow) Urine Appearance Other (Clear) Urine pH TNP Ur Specific [place] TNP Urine Protein TNP Urine Glucose (UA) TNP Urine Ketones TNP Ur Blood (Man) TNP Urine Nitrate TNP Urine Bilirubin TNP Urine Urobilinogen TNP Leukocyte Esterase Rfl TNP Urine RBC >100 H (0-2) /hpf Urine WBC 11-20 H (0-3) /hpf Ur Squamous Epith Cells Occasional (Few) /hpf Urine Bacteria None seen /hpf Urine Casts 3-5 <Linda Thompson, MANAGER [employer]E - Last Filed: 07/03/24 18:14> Lab Results 07/03/24 Range/Units 19:10 WBC 6.6 (4.5-10.0) K/mm3 RBC 4.39 L (4.6-6.20) M/mm3 Hgb 13.5 L (14.0-18.0) g/dL Hct 41.1 L (42.0-52.0) % MCV 93.6 (80-100) fl MCH 30.8 (26-34) pg MCHC 32.8 (32-36) g/dl RDW 12.9 (11.5-14.5) % Plt Count 263 (150-375) k/mm3 MPV 9.5 (7.4-10.4) fl Immature Gran % (Auto) 0.3 (0-0.5) % Neut % (Auto) 38.0 L (45.5-73.1) % Lymph % (Auto) 39.3 (18.3-44.2) % [place] % (Auto) 16.3 H (2.6-8.5) % Eos % (Auto) 5.2 H (0-4.4) % Baso % (Auto) 0.9 (0.2-1.2) % Lymph # (Auto) 2.58 (0.9-3.2) K/mm3 [place] # (Auto) 1.1 H (0.1-0.6) K/mm3 Eos # (Auto) 0.3 (0-0.3) K/mm3 Baso # (Auto) 0.1 (0.0-0.1) K/mm3 Abs Immat Gran (auto) 0.02 (0.00-0.031) K/mm3 Absolute Neuts (auto) 2.5 (1.3-6.7) K/mm3 Absolute Nucleated RBC 0.000 (0.0-0.012) K/mm3 Nucleated RBC % 0.0 (0.0-0.2) % PT 13.4 (11.1-14.7) Seconds INR 1.0 APTT 24.7 (22.3-36.8) Seconds Sodium 138 (137-145) mmol/L Potassium 4.6 (3.4-5.0) mmol/L Chloride 100 (98-107) mmol/L Carbon Dioxide 29 (22-30) mmol/L Anion Gap 9 (4-12) mmol/L BUN 22 H (9-20) mg/dL Creatinine 1.12 (0.7-1.3) mg/dL Estim Creat Clear Calc 59 ml/min Estimated GFR > 60 (59 - ) Glucose 98 (65-110) mg/dL Calcium 9.7 (8.4-10.2) mg/dL Total Bilirubin 0.5 (0.2-1.3) mg/dL AST 26 (17-59) U/L ALT 14 (6-50) U/L Alkaline Phosphatase 42 (38-126) U/L Troponin I 0.014 (0.000-0.034) ng/mL Total Protein 8.0 (6.3-8.2) g/dL Albumin 4.5 (3.5-5.1) g/dL Lipase 188 (23-300) U/L Urine Color Red H (Yellow) Urine Appearance Other (Clear) Urine pH TNP Ur Specific [place] TNP Urine Protein TNP Urine Glucose (UA) TNP Urine Ketones TNP Ur Blood (Man) TNP Urine Nitrate TNP Urine Bilirubin TNP Urine Urobilinogen TNP Leukocyte Esterase Rfl TNP Urine RBC >100 H (0-2) /hpf Urine WBC 11-20 H (0-3) /hpf Ur Squamous Epith Cells Occasional (Few) /hpf Urine Bacteria None seen /hpf Urine Casts 3-5 <Breezy Alvarado MD - Last Filed: 07/03/24 22:26> Discharge Plan Discharge Clinical Impression: Acute urinary retention, Hematuria <Linda Thompson APRN - Last Filed: 07/03/24 18:14> Patient Disposition: Home, Self-Care <Linda Thompson APRN - Last Filed: 07/03/24 18:14> Condition: Improved <Linda Thompson APRN - Last Filed: 07/03/24 18:14> Instructions: Antibiotic Form, Crane Catheter Placement and Care (ED), Hematuria (ED) <Linda Thompson APRN - Last Filed: 07/03/24 18:14> Additional Instructions: Please follow-up with your urologist within the next 2-3 days. Return to the ED if any new or worsening symptoms develop. <Linda Thompson APRN - Last Filed: 07/03/24 18:14> Patient Language: Tajik <Linda Thompson APRN - Last Filed: 07/03/24 18:14> Prescriptions: No Action finasteride 5 mg tablet 5 mg PO DAILY aspirin 81 mg tablet,delayed release (DR/EC) 81 mg PO DAILY Qty: 100 0RF Patient Comments: HOLD 7 days preop metoprolol tartrate 25 mg tablet 25 mg PO DAILY pantoprazole 40 mg tablet,delayed release (DR/EC) 40 mg PO QAM Qty: 30 5RF Rx Instructions: Take 30 min before first meal of day fenofibrate nanocrystallized 145 mg tablet 145 mg PO DAILY meloxicam 7.5 mg tablet 7.5 mg PO PRN nitroglycerin 0.4 mg tablet, sublingual 0.4 mg sublingual Q5M PRN (Reason: chest pain) tramadol 50 mg tablet 50 mg PO Q6H PRN (Reason: pain) Qty: 20 0RF nitrofurantoin monohyd/m-cryst [Macrobid] 100 mg capsule 100 mg PO Q12H 14 Days Qty: 28 0RF Rx Instructions: must administer with a meal/food clopidogrel 75 mg tablet 75 mg PO DAILY Patient Comments: HOLD 7 days ezetimibe 10 mg tablet 10 mg PO DAILY lisinopril 5 mg tablet 5 mg PO DAILY metformin 1,000 mg tablet 1,000 mg PO DAILY Qty: 90 1RF amlodipine 2.5 mg tablet 2 mg PO DAILY <Linda Thompson APRN - Last Filed: 07/03/24 18:14> Follow-up/Referrals: Dragan Barrios MD [Physician] - 2 Days Konzen,Perry Goss MD [Primary Care Provider] - <Linda Thompson APRN - Last Filed: 07/03/24 18:14> Time of Disposition: 22:23 <Linda Thompson APRN - Last Filed: 07/03/24 18:14> 22:23 <Breezy Alvarado MD - Last Filed: 07/03/24 22:26>
[2024-07-03 19:23] LABS: Basophils Absolute Auto 0.1 K/mm3 (0.0-0.1); Basophils Percent Auto 0.9 % (0.2-1.2); Eosinophils Absolute Auto 0.3 K/mm3 (0-0.3); Eosinophils Percent Auto 5.2 % (0-4.4); Hematocrit 41.1 % (42.0-52.0); Hemoglobin 13.5 g/dL (14.0-18.0); Immature Granulocyte Absolute 0.02 K/mm3 (0.00-0.031); Immature Granulocyte Percent A 0.3 % (0-0.5); Lymphocytes Absolute Auto 2.58 K/mm3 (0.9-3.2); Lymphocytes Percent Auto 39.3 % (18.3-44.2); Mean Corpuscular HGB Conc 32.8 g/dl (32-36); Mean Corpuscular Hemoglobin 30.8 pg (26-34); Mean Corpuscular Volume 93.6 fl (80-100); Mean Platelet Volume 9.5 fl (7.4-10.4); Monocytes Absolute Auto 1.1 K/mm3 (0.1-0.6); Monocytes Percent Auto 16.3 % (2.6-8.5); Neutrophils Absolute Auto 2.5 K/mm3 (1.3-6.7); Platelet Count Result 263 k/mm3 (150-375); Red Blood Count 4.39 M/mm3 (4.6-6.20); Red Cell Distribution Width 12.9 % (11.5-14.5); White Blood Count 6.6 K/mm3 (4.5-10.0)
[2024-07-03 19:31] LABS: Bacteria Urine None Seen /hpf; RBC Urine >100 /hpf (0-2); Squamous Epithelial Cell Urine Occasional /hpf (Few)
[2024-07-03 19:32] LABS: Color Urine Red (Yellow)
[2024-07-03 19:33] LABS: Appearance Urine Other (Clear)
[2024-07-03 19:34] LABS: Partial Thromboplastin Time 24.7 Seconds (22.3-36.8); Prothrombin Time 13.4 Seconds (11.1-14.7)
[2024-07-03 19:38] LABS: Alanine Aminotransferase 14 U/L (6-50); Albumin Level 4.5 g/dL (3.5-5.1); Alkaline Phosphatase 42 U/L (38-126); Anion Gap 9 mmol/L (4-12); Aspartate Amino Transferase 26 U/L (17-59); Bilirubin,Total 0.5 mg/dL (0.2-1.3); Blood Urea Nitrogen 22 mg/dL (9-20); Calcium 9.7 mg/dL (8.4-10.2); Carbon Dioxide 29 mmol/L (22-30); Chloride 100 mmol/L (98-107); Estimated CRCL calculation 59 ml/min; Estimated Glomerular Filt Rate > 60; Glucose 98 mg/dL (65-110); Lipase 188 U/L (23-300); Potassium 4.6 mmol/L (3.4-5.0); Sodium 138 mmol/L (137-145)
[2024-07-03 19:50] LABS: Troponin I 0.014 ng/mL (0.000-0.034)
[2024-07-03] MEDS: SODIUM CHLORIDE 0.9% IV 1,000 ML 999 ML IV CONT (20:06)
[2024-07-03] MEDS: LIDOCAINE 2% GEL UROJET 10 ML PKG (20:07)
[2024-07-03] MEDS: MORPHINE SULFATE (*CRX) 4 MG/ML INJ IV PUSH (21:58)
[2024-07-03] MEDS: ONDANSETRON INJ 4 MG/2 ML VIAL IV PUSH (21:58)
[2024-07-03 22:01] VITALS: BP 158/73; PULSE 70; RESP 16; O2SAT 99
[2024-07-03 22:49] VITALS: BP 154/74; PULSE 73; RESP 17; O2SAT 100
--- OUTSIDE RECORDS SUMMARY | 2024-07-06 14:54 | XMS_ITS | CONTINUITY OF CARE DOCUMENT ---
Author Name david rashmideandra Address Unknown Organization [facility] Address [address] [place] [address] Phone [phone] Care Team Providers Care Television Newscast Director Name Role Phone Pedro QUINONES, Janay Unavailable [phone] KERRY HAIR MD Unavailable DIOGENES QUINONES, SONAM Unavailable Unavailable INSURANCE PROVIDERS Payer name Policy type / Coverage type [place] red libertarian ID [facility] Blue [facility] [id number] [place] [employer] Medicare [id number]
--- OUTSIDE RECORDS SUMMARY | 2024-07-06 14:54 | XMS_ITS | Referral Summary ---
Author Organization [facility] [employer] Address [address] [place] [address] Care Team Providers Care Wet Suit Gluer Name Role Phone Tim Sanchez MD Primary Care Provider [phone] Source Comments [facility] [employer],non-owned Affiliates and Associated Physician Practices is amultiple site organization consisting of ambulatory clinics and hospital sitesin [place], [place], [place] and [place]. This disclosure is being madepursuant to the Care Everywhere program and may not contain all information available regarding this patient. Last updated 18.[facility] [employer] Allergies No known active allergies Medications * Be aware that medications may not be up to date on this document. Alwaysverify current medications with the patient. Medication Sig Dispensed Refills Start Date End Date Status diazepam (VALIUM) 5 MG tablet Take 1 Tab by mouth 4 times daily as needed for Anxiety. 100 0 10/18/2008 Active ezetimibe (ZETIA) 10 MG tablet Take 10 mg by mouth once daily Active clopidogrel (PLAVIX) 75 MG tablet Take 75 mg by mouth once daily Active tamsulosin (FLOMAX) 0.4 MG capsule Take 0.4 mg by mouth once daily Take 30 minutes after a meal at the same time each day. Active ALPRAZolam (XANAX) 1 MG tablet Take 1 mg by mouth every morning Active metFORMIN (GLUCOPHAGE) 1000 MG tablet Take 1,000 mg by mouth 2 times daily with morning and evening meal Active lisinopril (PRINIVIL; ZESTRIL) 2.5 MG tablet Take 2.5 mg by mouth once daily Active Multiple Vitamins-Minerals (EYE VITAMINS PO) Take 1 tablet by mouth 2 times daily Active metoprolol succinate XL 24hr (TOPROL XL) 12.5 TABS tablet Take 12.5 mg by mouth once daily Active amLODIPine (NORVASC) 2.5 MG tablet 04/25/2020 Active baclofen (LIORESAL) 5 MG TABS 06/26/2020 Active cyclobenzaprine (FLEXERIL) 10 MG tablet 06/03/2020 Active fluvoxaMINE (LUVOX) 100 MG tablet 05/14/2020 Active fenofibrate (TRICOR) 145 MG tablet 04/26/2020 Active HYDROcodone-acetamin ophen (NORCO) 5-325 MG tablet Take 1-2 tablets by mouth 02/24/2020 Active lisinopril (PRINIVIL;ZESTRIL) 5 MG tablet 05/14/2020 Active methocarbamol (ROBAXIN) 500 MG tablet TK 2 TS PO QID 05/13/2020 Active methylPREDNISolone (MEDROL DOSEPAK) 4 MG tablet 04/29/2020 Active metroNIDAZOLE (METROGEL) 1 % gel 05/27/2020 Active traMADol (ULTRAM) 50 MG tablet 04/29/2020 Active predniSONE (DELTASONE) 20 MG tablet TK 1 T PO QD FOR 5 DAYS 05/13/2020 Active amoxicillin (AMOXIL) 875 MG tablet amoxicillin 875 mg tablet TAKE 1 TABLET EVERY 12 HOURS UNTIL ALL TAKEN Active doxycycline hyclate (VIBRAMYCIN) 100 MG capsule 09/18/2020 Active finasteride (PROSCAR) 5 MG tablet every 24 hours Active metoprolol tartrate (LOPRESSOR) 25 MG tablet metoprolol tartrate 25 mg tablet TAKE 1/2 TABLET TWICE DAILY (12.5 MG.) Active Active Problems Problem Noted Date Diagnosed Date Encounter for screening colonoscopy 10/14/2020 Overview (11/07/2020): Added automatically from request for surgery [id number] Rosacea 09/18/2020 Achilles tendon contracture, right 07/04/2020 Overview (11/07/2020): Added automatically from request for surgery [id number] Metatarsalgia of right foot 07/04/2020 Overview (11/07/2020): Added automatically from request for surgery [id number] Sesamoiditis 07/04/2020 Overview (11/07/2020): Added automatically from request for surgery [id number] Joint pain 02/28/2020 Overview (11/07/2020): Last Assessment & Plan: Medrol dose pack Tramadol Q6 PRN (use, safety, s/e reviewed) Referral to Pain Management BPH with obstruction/lower urinary tract symptom s 02/23/2020 Pseudarthrosis after fusion or arthrodesis 02/28 Overview (11/07/2020): Added automatically from request for surgery [id number] NSTEMI (non-ST elevated myocardial infarction) 0 11/22/2018 Overview (11/07/2020): Last Assessment & Plan: Patient presented to with chest pain, indigestion, PVCs, and rising troponin c/w NSTEMI. Transferred to [facility], s/p [facility] on 11/22. LHC revealed stable LCX disease, new mid/distal RCA dz, and patent saphenous grafts to 1st and 2nd obtuse marginals. -No intervention given anatomy of RCA occlusion. -1 year Plavix, indefinite aspirin -Continue fenofibrate; adding ezetimibe; patient does not tolerate statins -TTE pending -Trend troponins 0.44 > 0.41 Age-related nuclear cataract of both eyes 2018 Overview (12/14/2019): Last Assessment & Plan: SRx given. Other headache syndrome 11/14/2018 Overview (11/07/2020): Last Assessment & Plan: No obvious ophthalmic cause (open angles/deep chamber, no glaucomenflecken), no AC reaction, no nerve edema Given age of onset and duration of episodes, recommend f/u with PCP Hallux rigidus of right foot 06/08/2018 Overview (12/14/2019): Added automatically from request for surgery [id number] Coronary artery disease invo lving [place] coronary artery of [place] heart without angina pectoris 03/08/2018 Diabetes mellitus type 2 without retinopathy 09/2017 Overview (12/14/2019): Last Assessment & Plan: On metformin 1000mg BID at home -LDSSI Last Assessment & Plan: Strict BS control, annual dilated eye exams. Essential hypertension 01/15/2018 Overview (12/14/2019): Last Assessment & Plan: Continue home antihypertensives. 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 Improved symptomatically as of last clinic visit, with acute worsening of symptoms in setting of ischemia. -telemetry -CPAP per protocol Presence of cardiac pacemaker 09/10/2015 Overview (11/07/2020): Last Assessment & Plan: No dizziness, doing well Sick sinus syndrome 05/13/2015 Overview (11/07/2020): Last Assessment & Plan: No palpitations, syncope Depressive disorder 03/15/2015 Social History Tobacco Use Types Packs/Day Years Used Date Smoking Tobacco: Former Smokeless Tobacco: Never Alcohol Use Standard Drinks/Week Comments No 0 (1 standard drink = 0.6 oz pur e alcohol) Sex and Gender Information Value Date Recorded Sex Assigned at Not on file Gender Identity Not on file Sexual Orientation Not on file Plan of Treatment Not on file Care Teams Wet Suit Gluer Relationship Specialty Start Date End Date Tim Sanchez MD [address] [place] [id number] PCP - General 10/05/17
--- OUTSIDE RECORDS SUMMARY | 2024-07-06 14:54 | XMS_ITS | Patient Health Summary ---
Author Organization [facility] [employer] Address [address] [place] [address] Care Team Providers Care Foam Tank Laminator Name Role Phone Tim Sanchez MD Primary Care Provider [phone] Note from [facility],non-owned Affiliates and Associated Physician Practices is amultiple site organization consisting of ambulatory clinics and hospital sitesin [place], [place], [place] and [place]. This disclosure is being madepursuant to the Care Everywhere program and may not contain all information available regarding this patient. Last updated 18.[facility] Allergies No known active allergies Medications * Be aware that medications may not be up to date on this document. Alwaysverify current medications with the patient. * diazepam (VALIUM) 5 MG tablet(Started 10/18/2008) Take 1 Tab by mouth 4 times daily as needed for Anxiety. * ezetimibe (ZETIA) 10 MG tablet Take 10 mg by mouth once daily * clopidogrel (PLAVIX) 75 MG tablet Take 75 mg by mouth once daily * tamsulosin (FLOMAX) 0.4 MG capsule Take 0.4 mg by mouth once daily Take 30 minutes after a meal at the same time each day. * ALPRAZolam (XANAX) 1 MG tablet Take 1 mg by mouth every morning * metFORMIN (GLUCOPHAGE) 1000 MG tablet Take 1,000 mg by mouth 2 times daily with morning and evening meal * lisinopril (PRINIVIL; ZESTRIL) 2.5 MG tablet Take 2.5 mg by mouth once daily * Multiple Vitamins-Minerals (EYE VITAMINS PO) Take 1 tablet by mouth 2 times daily * metoprolol succinate XL 24hr (TOPROL XL) 12.5 TABS tablet Take 12.5 mg by mouth once daily * amLODIPine (NORVASC) 2.5 MG tablet(Started 04/25/2020) * baclofen (LIORESAL) 5 MG TABS(Started 06/26/2020) * cyclobenzaprine (FLEXERIL) 10 MG tablet(Started 06/03/2020) * fluvoxaMINE (LUVOX) 100 MG tablet(Started 05/14/2020) * fenofibrate (TRICOR) 145 MG tablet(Started 04/26/2020) * HYDROcodone-acetaminophen (NORCO) 5-325 MG tablet(Started 02/24/2020) Take 1-2 tablets by mouth * lisinopril (PRINIVIL;ZESTRIL) 5 MG tablet(Started 05/14/2020) * methocarbamol (ROBAXIN) 500 MG tablet(Started 05/13/2020) TK 2 TS PO QID * methylPREDNISolone (MEDROL DOSEPAK) 4 MG tablet(Started 04/29/2020) * metroNIDAZOLE (METROGEL) 1 % gel(Started 05/27/2020) * traMADol (ULTRAM) 50 MG tablet(Started 04/29/2020) * predniSONE (DELTASONE) 20 MG tablet(Started 05/13/2020) TK 1 T PO QD FOR 5 DAYS * amoxicillin (AMOXIL) 875 MG tablet amoxicillin 875 mg tablet TAKE 1 TABLET EVERY 12 HOURS UNTIL ALL TAKEN * doxycycline hyclate (VIBRAMYCIN) 100 MG capsule(Started 09/18/2020) * finasteride (PROSCAR) 5 MG tablet every 24 hours * metoprolol tartrate (LOPRESSOR) 25 MG tablet metoprolol tartrate 25 mg tablet TAKE 1/2 TABLET TWICE DAILY (12.5 MG.) Active Problems Problem Noted Date Diagnosed Date Encounter for screening colonoscopy 10/14/2020 Rosacea 09/18/2020 Achilles tendon contracture, right 07/04/2020 Metatarsalgia of right foot 07/04/2020 Sesamoiditis 07/04/2020 Joint pain 02/28/2020 BPH with obstruction/lower urinary tract symptom s 02/23/2020 Pseudarthrosis after fusion or arthrodesis 02/28 NSTEMI (non-ST elevated myocardial infarction) 0 11/22/2018 Age-related nuclear cataract of both eyes 2018 Other headache syndrome 11/14/2018 Hallux rigidus of right foot 06/08/2018 Coronary artery disease invo lving [place] coronary artery of [place] heart without angina pectoris 03/08/2018 Diabetes mellitus type 2 without retinopathy 09/2017 Essential hypertension 01/15/2018 ARMD (age related macular degeneration) 11/16/19 18 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 11/15/2017 Nonsustained ventricular tachycardia 09/15/2016 Presence of cardiac pacemaker 09/10/2015 Sick sinus syndrome 05/13/2015 Depressive disorder 03/15/2015 Social History Tobacco Use Types Packs/Day Years Used Date Smoking Tobacco: Former Smokeless Tobacco: Never Alcohol Use Standard Drinks/Week Comments No 0 (1 standard drink = 0.6 oz pur e alcohol) Sex and Gender Information Value Date Recorded Sex Assigned at Not on file Gender Identity Not on file Sexual Orientation Not on file Procedures * OPH OCT TEST SLU(Performed 11/07/2020) Performed for Intermediate stage dry age-related macular degeneration of both eyes * OPH OCT TEST SLU(Performed 07/18/2020) Performed for Intermediate stage dry age-related macular degeneration of both eyes * OPH OCT TEST SLU(Performed 07/18/2020) Performed for Intermediate stage dry age-related macular degeneration of both eyes * OPH OCT TEST SLU(Performed 12/14/2019) Performed for Intermediate stage dry age-related macular degeneration of both eyes * OPH OCT TEST SLU(Performed 06/01/2018) Performed for Intermediate stage dry age-related macular degeneration of both eyes * OPH OCT TEST SLU(Performed 11/15/2017) Performed for ARMD (age related macular degeneration) Results * OCT (11/07/2020 9:47 AM CDT) Anatomical Region Laterality Modality Other 11/07/2020 9:47 AM CDT Jack Ewing MD OPHTHALMOLOGY SERVIC ES ORDERABLES * OPH OCT TEST SLU (07/18/2020 2:40 PM BOARD MACHINE SET UP OPERATOR) Anatomical Region Laterality Modality Other 07/18/2020 2:40 PM BOARD MACHINE SET UP OPERATOR David Rosales MD OPHTHALMOLO GY SERVICES ORDERABLES * OPH OCT TEST SLU (07/18/2020 1:32 PM BOARD MACHINE SET UP OPERATOR) Anatomical Region Laterality Modality Other 07/18/2020 1:32 PM BOARD MACHINE SET UP OPERATOR David Rosales MD OPHTHALMOLO GY SERVICES ORDERABLES * OPH OCT TEST SLU (12/14/2019 2:55 PM CDT) Anatomical Region Laterality Modality Other 12/14/2019 2:55 PM CDT David Rosales MD OPHTHALMOLO GY SERVICES ORDERABLES * OPH OCT TEST SLU (06/01/2018 9:49 AM BOARD MACHINE SET UP OPERATOR) Anatomical Region Laterality Modality Other 06/01/2018 9:49 AM BOARD MACHINE SET UP OPERATOR Nhi Parker MD OPHTHALMOLOGY SERVIC ES ORDERABLES * OPH OCT TEST SLU (11/15/2017 1:32 PM CDT) Anatomical Region Laterality Modality Other 11/15/2017 1:32 PM CDT Nhi Parker MD OPHTHALMOLOGY SERVIC ES ORDERABLES Care Teams Foam Tank Laminator Relationship Specialty Start Date End Date Tim Sanchez MD [address] [place] [address] PCP - General 10/05/17
--- OUTSIDE RECORDS SUMMARY | 2024-07-06 14:54 | XMS_ITS ---
Author Organization [facility] Address [address] [place] [address] Care Team Providers Care Aerial Crop Duster Name Role Phone Nick QUINONES, Perry Primary Care Provider Rio Monteiro [facility] [phone] REASON FOR VISIT fitting Encounters Encounter Location Date Provider Diagnosis [facility] [address] [address] 10/26/2023 Rio Griffith Plan Of Treatment No Information Progress Notes * Deacon ACEVEDODOB: (69 yo M)Acc No.[id number]:10/26/2023 Progress Notes Patient:?DOMONIQUEDeacon COLE Provider:?Rio Griffith DPM :1955???Age:68 Y???Sex:Male Noel e:10/26/2023 Address:[address] [place], [place] [id number] Pcp:Perry Romero MD Subjective: * Chief Complaints: * ???1. Fitting. * Medical History:? Objective: * Vitals:? Assessment: Plan: * Treatment: * Images: * Electronic signature of Rio Griffith DPM on 07/06/2024 at 02:54 PM SQL REPORT WRITER Sign off status: Pending * Provider:?Rio Griffith DPM Date:?10/12 Generated for Printi ng/Faxing/eTransmitting on:?07/06/2024 02:54 PM SQL REPORT WRITER
--- OUTSIDE RECORDS SUMMARY | 2024-07-06 14:54 | XMS_ITS | Clinical Summary ---
Author Organization [facility] [employer] Address [address] [place] [address] Care Team Providers Care Board Runner Name Role Phone Tim Sanchez MD Primary Care Provider [phone] Source Comments [facility] [employer],non-owned Affiliates and Associated Physician Practices is amultiple site organization consisting of ambulatory clinics and hospital sitesin [place], [place], [place] and [place]. This disclosure is being madepursuant to the Care Everywhere program and may not contain all information available regarding this patient. Last updated 18.[facility] [employer] Allergies No known active allergies Medications * [...] (11/07/2020): Added automatically from request for surgery [id number] Rosacea 09/18/2020 Achilles tendon contracture, right 07/04/2020 Overview (11/07/2020): Added automatically from request for surgery [id number] Metatarsalgia of right foot 07/04/2020 Overview (11/07/2020): Added automatically from request for surgery [id number] Sesamoiditis 07/04/2020 Overview (11/07/2020): Added automatically from request for surgery [id number] Joint pain 02/28/2020 Overview (11/07/2020): Last Assessment & Plan: Medrol dose pack Tramadol Q6 PRN (use, safety, s/e reviewed) Referral to Pain Management BPH with obstruction/lower urinary tract symptom s 02/23/2020 Pseudarthrosis after fusion or arthrodesis 02/28 Overview (11/07/2020): Added automatically from request for surgery [id number] NSTEMI (non-ST elevated myocardial infarction) 0 11/22/2018 Overview (11/07/2020): Last Assessment & Plan: Patient presented to with chest pain, indigestion, PVCs, and rising troponin c/w NSTEMI. Transferred to [facility], s/p [facility] on 11/22. LHC revealed stable LCX [...] (12/14/2019): Added automatically from request for surgery [id number] Coronary artery disease invo lving [place] coronary artery of [place] heart without angina pectoris 03/08/2018 Diabetes mellitus [...] Orientation Not on file Plan of Treatment Health Maintenance Due Date Last Done Comments COLOGUARD (AGES 45-75) - COLON CA SCREENING 1955 COLON MONITORING 1955 COLONOSCOPY - COLON CA SCREENING 1955 CT COLONOGRAPHY - COLON CA SCREENING 1955 Colorectal Cancer Screening 1955 FIT - COLON CA SCREENING 1955 FLEX SIG - COLON CA SCREENING 1955 MEDICARE AWV ? 12 MONTHS 1955 HEPATITIS C SCREENING 03/04/1973 DTAP/TDAP/TD VACCINES (1 - Tdap) 1974 PNEUMOCOCCAL VACCINE 50+ (1 of 2 - PCV) 1974 DIABETES-STATIN 1995 ZOSTER VACCINE (1 of 2) 2005 DIABETES-FOOT EXAM WITH MONOFILAMENT 12/14/2019 AAA SCREENING 2020 DIABETES-HGB A1C 03/20/2021 09/18/2020, 06/03/2020 DIABETES-SERUM CREATININE 09/18/20212020, 06/03/2020, 08/01/2011 DIABETES RETINOPATHY SCREENING 11/07/2022 11/07/2020, 07/18/2020, 07/18/2020, Additional history exists COVID-19 VACCINE (2023- season) 2024 INFLUENZA VACCINE (#1) 2024 9, 03/16/2018, 08/05/2017 DEPRESSION SCREENING 06/14/2024 DIABETES - URINE PROTEIN SCREENING 06/14/2024 Respiratory Syncytial Virus (RSV) Vaccine Pt: or over 60 yrs (1 - 1-dose 75+ series) 2030 HEPATITIS B VACCINE Aged Out No longe r eligible based on patient's age to complete this topic HIB VACCINE Aged Out No longer eligi ble based on patient's age to complete this topic HPV VACCINE Aged Out No longer eligi ble based on patient's age to complete this topic MENINGOCOCCAL (Group B) VACCINE Aged Out No longer eligible based on patient's age to complete this topic MENINGOCOCCAL VACCINE Aged Out No karen waldo eligible based on patient's age to complete this topic Care Teams Board Runner Relationship Specialty Start Date End Date Tim Sanchez MD [address] [place] [address] PCP - General 10/05/17
--- OUTSIDE RECORDS SUMMARY | 2024-07-06 14:54 | XMS_ITS ---
Author Organization [facility] Address [address] [address] Care Team Providers Care Wall Man Name Role Phone Perry Romero MD Primary Care Provider Rio Monteiro [facility] [phone] REASON FOR VISIT Sched orthotic Encounters Encounter Location Date Provider Diagnosis [facility] [address] [address] 10/15/2023 Rio Griffith Plan Of Treatment No Information Progress Notes * Deacon YOUSSEFDOB: (68 yo M)Acc No.[id number]:10/15/2023 Patient:?Deacon YOUSSEF :1955???Age:68 Y???Sex:Male [address] [place], [address] * true * Date:? Generated for Scotti freddy/Vanda/eTransmitting on:?07/06/2024 02:54 PM CUSTOMER INSIGHT ANALYST
--- OUTSIDE RECORDS SUMMARY | 2024-07-06 14:55 | XMS_ITS | Encounter Summary ---
Author Organization [facility] Address [address] [place] [address] Phone Care Team Providers Care Legal Internship Name Role Phone Tim Sanchez MD Primary Care Provider [phone] Lina Mcadams MD Primary Care Provide r Deacon Eisenberg DO Primary Care Provider [phone] Leonidas Carroll MD Unavailable [phone] Perry Romero MD Primary Care Provider [phone] Love Jones PT Unavailable Unavailab Arthur Law MD Unavailable Karl Cha MD Unavailable [phone] Encounter Details Date Type Department Care Team (Late st Contact Info) Description 09/10/2015 Orders Only [facility]INCON[facility] ProviderHeena MD [address] [place] [address] Social History Tobacco Use Types Packs/Day Years Used Date Smoking Tobacco: Never Assessed Sex and Gender Information Value Date Recorded Sex Assigned at Not on file Legal Sex Male 11:[address]OR Gender Identity Not on file Sexual Orientation Not on file documented as of this encounter Plan of Treatment Not on file documented as of this encounter Procedures Procedure Name Priority Date/Time Associated Diagnosis Comments CARDIOLOGY REPORT 09/10/2015 documented in this encounter Results * CARDIOLOGY REPORT (09/10/2015) Anatomical Region Laterality Modality Other Narrative 09/10/2015 Ordered by an unspecified provider. us Historical Provider [facility] NATHAN MULLIGAN Final Result documented in this encounter Visit Diagnoses Not on filedocumented in this encounter Care Teams Legal Internship Relationship Specialty Start Date End Date Tim Sanchez MD [address] [place] [address] PCP - General 09/29/16 01/13/18 Lina Mcadams MD [address] [facility] [address] [place] [address] PCP - General 01/14/18 11/21/18 Deacon Eisenberg DO [address] [address] [place] [address] PCP - General 11/22/18 02/22/20 Perry Romero MD [address] [facility] [address] [place] [address] PCP - General Internal Medicine 02/23/20 Leonidas Carroll MD [address] [facility] [address] [place] [address] Net Finisher Cardiology 05/23/19 Love Jones, PT Physical Therapist Physical Therapy 09/28/22 Arthur Bateman MD [address] [facility] [address] [place] [address] Referring Physician Anesthesiology 09/28/22 Karl Cha MD [address] [place] [address] Referring Physician Orthopedic Surgery 11/24/23 documented as of this encounter
--- OUTSIDE RECORDS SUMMARY | 2024-07-06 14:55 | XMS_ITS | Referral Summary ---
Author Organization [facility] Address [address] [place] [address] Care Team Providers Care It Associate Name Role Phone Leonidas Carroll MD Unavailable [phone] Perry Romero MD Primary Care Provider Love Jones PT Unavailable Unavailab Arthur Law MD Unavailable Karl Cha MD Unavailable [phone] Encounters Date Type Department Care Team Description 07/04/2024 3:03 AM SCHOOL ATTENDANCE SECRETARY - 07/04/2024 10:18 AM SCHOOL ATTENDANCE SECRETARY Emergency [facility] Emergency Department 1 [place] [phone] Aleah Hoffman MD PhD Ismael Maddox MD Urinary retention (Primary Dx); Gross hematuria; Cystitis Discharge Disposition: Discharge to home or self care 06/30/2024 9:00 AM SCHOOL ATTENDANCE SECRETARY Office Visit [facility] Orthopaedic Surgery [address] [facility] 6th Floor [address] [phone] Zbigniew Noel MD Bilateral hip pain; Bilateral primary osteoarthritis of hip 06/28/2024 Orders Only [facility] [address] [place], [place] [address] [place] [phone] Perry Romero MD 06/27/2024 Orders Only [facility] [address] [place] [phone] Perry Romero MD 06/22/2024 Orders Only [facility] [address] [phone] Perry Romero MD 06/22/[address] [facility] Cardiology [address] [facility] 8th [place] [address] [place] [address] Leonidas Carroll MD 06/21/2024 Orders Only [facility] [address] [place] [phone] Perry Romero MD 06/16/2024 Telephone [facility] [address] [place] [phone] Raisa Blanco NP 06/16/2024 Orders Only [facility] [address] [place] [phone] Raisa Blanco, WILFRIDO Bilateral hip pain (Primary Dx); Hip arthritis; Bilateral primary osteoarthritis of hip 06/16/2024 11:31 AM SCHOOL ATTENDANCE SECRETARY - 06/16/2024 11:59 PM SCHOOL ATTENDANCE SECRETARY Hospital Encounter [facility] [address] [place] [phone] Bilateral hip pain Discharge Disposition: Discharge to home or self care 06/16/[address] [facility] [address] [place] [address] 8th [place] [address] [place] [address] Leonidas Carroll MD Card clearance and med management pre-urologic surgery 06/16/2024 10:45 AM SCHOOL ATTENDANCE SECRETARY Office Visit [facility] [address] [place] [phone] Raisa Blanco NP Bilateral hip pain (Primary Dx); Chronic midline low back pain without sciatica 06/05/2024 Orders Only [facility] Count includes the [facility] [address] [phone] Perry Romero MD 05/19/2024 12:44 PM SCHOOL ATTENDANCE SECRETARY - 05/19/2024 11:59 PM SCHOOL ATTENDANCE SECRETARY Hospital Encounter [facility] Radiology [facility] ([facility]) [address] [place] [address] Encounter for other specified surgical aftercare Discharge Disposition: Discharge to home or self care 05/19/2024 1:40 PM SCHOOL ATTENDANCE SECRETARY Office Visit [facility] [address] [facility] 6th Floor [address] [phone] Zbigniew Noel MD Encounter for other specified surgical aftercare (Primary Dx) 05/16/2024 Orders Only [facility] [address] [place] [address] Perry Romero MD 05/15/2024 Orders Only [facility] [address] [place] [address] Perry Romero MD 05/14/2024 Orders Only [facility] [address] [place] [address] Perry Romero MD 05/13/2024 Orders Only [facility] [address] [place] [address] Perry Romero MD 04/24/2024 5:05 AM SCHOOL ATTENDANCE SECRETARY - 04/25/2024 1:03 PM SCHOOL ATTENDANCE SECRETARY Hospital Encounter [address] [phone] Zbigniew Noel MD Preoperative testing (Primary Dx); Osteoarthritis of left knee, unspecified osteoarthritis type; Primary osteoarthritis of left knee Discharge Disposition: Discharge to home, home health skilled care 04/24/2024 7:30 AM SCHOOL ATTENDANCE SECRETARY - 04/24/2024 10:20 AM SCHOOL ATTENDANCE SECRETARY Surgery [facility] Operating Room 1 [place] [address] Zbigniew Noel MD ARTHROPLASTY TOTAL KNEE - MARION-LEFT 04/24/2024 6:58 AM SCHOOL ATTENDANCE SECRETARY Anesthesia Event [facility] Operating Room 1 [place] [address] David Newsome MD Saunders, Sara Louise, NP 04/20/2024 Orders Only [facility] [address] [facility] Office [facility] [address] [place] [phone] Zbigniew Noel MD Chronic pain of left knee (Primary Dx) 04/18/[address] [facility] [address] [place] [address] 4 [address] [place] [phone] Juan M Encinas RN 04/17/2024 Orders Only [facility] Orth[facility] [address] [place] [phone] Zbigniew Noel MD 04/12/2024 Orders Only [facility] Cardiology [address] [facility] Office [facility] [address] [phone] Maty Weber MD 04/10/2024 10:30 AM CDT Office Visit [facility] Ophthalmology [address] [place] [address] 1st Floor [phone] Sherri Jean-Baptiste MD AMD (age-related macular degeneration), bilateral (Primary Dx); Age-related nuclear cataract of both eyes from Last 3 Months Allergies Active Allergy Reactions Criticality Noted Date Comments Zeyexwj-Vtt-Jcg Reductase Inhibitors Other (See comments) Low 05/03/2024 Pt has an intolerance to statin drugs. Medications fenofibrate nanocrystallized (TRICOR) 145 mg tablet Take 1 tablet (145 mg total) by mouth daily 90 tablet 3 023 Active metoprolol tartrate (LOPRESSOR) 25 mg immediate release tablet TAKE 1 TABLET(25 MG) BY MOUTH EVERY MORNING 90 tablet 3 023 Active ezetimibe (ZETIA) 10 mg tablet TAKE 1 TABLET(10 MG) BY MOUTH EVERY NIGHT 90 tablet 3 Active amLODIPine (NORVASC) 2.5 mg tablet TAKE 1 TABLET(2.5 MG) BY MOUTH DAILY 90 tablet 3 Active lisinopriL (PRINIVIL,ZESTRIL) 10 mg tablet Take 1 tablet (10 mg total) by mouth daily 30 tablet 11 2024 Active metFORMIN (GLUCOPHAGE) 1,000 mg tablet TAKE 1 TABLET(1000 MG) BY MOUTH DAILY WITH BREAKFAST 90 tablet 3 Active busPIRone (BUSPAR) 30 mg tablet Take 1 tablet (30 mg total) by mouth 2 (two) times a day Active nitroglycerin (NITROSTAT) 0.[address] 1 tablet (0.4 mg total) under the tongue every 5 (five) minutes as needed for chest pain May repeat dose q 5 min, up to 3 doses total 25 tablet 3 2024 Active aspirin 81 mg chewable tablet Take 1 tablet (81 mg total) by mouth daily 30 tablet 11 2024 Active clopidogreL (PLAVIX) 75 mg tablet Take 1 tablet (75 mg total) by mouth daily Active oxyCODONE (ROXICODONE) 5 mg immediate release tabletIndications:P ain Take 1 tablet (5 mg total) by mouth every 4 (four) hours as needed for pain (Breakthroug h Pain) 30 tablet Active meloxicam (MOBIC) 7.5 mg tabletIndications:P ain Take 1 tablet (7.5 mg total) by mouth daily 30 tablet Active acetaminophen 500 mg capsuleIndications: Pain Take 2 capsules (1,000 mg total) by mouth every 8 (eight) hours 90 tablet Active senna-docusate (PERICOLACE) 8.6-50 mgIndications:const ipation Take 2 tablets by mouth 2 (two) times a day 60 tablet Active traMADoL (ULTRAM) 50 mg tabletIndications:E ncounter for other specified surgical aftercare Take 1 tablet (50 mg total) by mouth every 6 (six) hours as needed for pain 30 tablet 12/06/[address] (PROTONIX) 40 mg EC tablet TAKE 1 TABLET(40 MG) BY MOUTH DAILY 90 tablet 2 024 Active finasteride (PROSCAR) 5 mg tabletIndications:b enign prostatic hyperplasia with lower urinary tract sx Take 1 tablet (5 mg total) by mouth contact center rep before breakfast 90 tablet 3 025 Active cephalexin (KEFLEX) 500 mg capsuleIndications: Urinary Tract/Genitourinary Infection Take 1 capsule (500 mg total) by mouth 2 (two) times a day for 14 days 10 capsule 025 2024 Active tamsulosin (FLOMAX) 0.4 mg extended release capsuleIndications: Nocturia Take 1 capsule (0.4 mg total) by mouth daily 30 capsule 11 021 2021 Discontinued finasteride (PROSCAR) 5 mg tablet TAKE 1 TABLET(5 MG) BY MOUTH DAILY 90 tablet 1 024 2024 Discontinued Active Problems Problem Noted Date Diagnosed Date Osteoarthritis of left knee, unspecified osteoarthritis type 04/24/2024 Primary osteoarthritis of left knee 02/18/2024 Generalized anxiety disorder 10/13/2023 Recurrent major depression 10/13/2023 Dysthymia 10/13/2023 Arthralgia of both knees 07/07/2023 Chronic midline low back pain without sciatica 0 06/17/2023 Assessment & Plan (06/17/2023 10:00 AM SCHOOL ATTENDANCE SECRETARY): Continue flexeril 10mg Q8 PRN Trial gabapentin 100mg Q8 TID Topical lidocaine patches 4%, on for 12 hours/off for 12 hours Will send [place] 5/325 PRN #28, discussed that this will not be refilled regularly Continue heat PT order Seeing Neurosurgery next week and welcome their input on any further treatment interventions. Gastro-esophageal reflux disease without esophag itis 06/14/2023 Nonrheumatic aortic (valve) insufficiency 2023 Nonrheumatic mitral (valve) insufficiency 2023 Nonrheumatic tricuspid (valve) insufficiency 06/2023 Obstructive sleep apnea (adult) (pediatric) 06/2023 Chronic superficial gastritis without bleeding 1 07/19/2022 Stage 3a chronic kidney disease 07/21/2021 Assessment & Plan (07/21/2021 9:52 AM SCHOOL ATTENDANCE SECRETARY): Baseline creatine 1.3-1.5 Creatine Within patient;s baseline at 1.3 CTM Received IV fluids 500 ml on admission for creatine 1.59 Statin intolerance 07/18/2021 Assessment & Plan (07/18/2021 3:39 PM SCHOOL ATTENDANCE SECRETARY): History of statin intolerance -Continue ezetimibe and fenofibrate DM2 (diabetes mellitus, type 2) 07/18/2021 Assessment & Plan (07/19/2021 7:58 AM SCHOOL ATTENDANCE SECRETARY): Follow glucose and rx with insulin Metformin held for now pending cath. Assessment & Plan (07/18/2021 3:41 PM SCHOOL ATTENDANCE SECRETARY): -Hemoglobin A1c 6.1 -Hold home metformin while inpatient -SSI while admitted -Carb consistent diet -Accuchecks BPH (benign prostatic hyperplasia) 07/18/2021 Assessment & Plan (07/18/2021 3:59 PM SCHOOL ATTENDANCE SECRETARY): BPH s/p TURP -Continue home finasteride and tamsulosin HLD (hyperlipidemia) 07/18/2021 Assessment & Plan (07/21/2021 8:10 AM SCHOOL ATTENDANCE SECRETARY): LDL ok while on non-statins due to intolerance. Continue present Rx for now Assessment & Plan (07/20/2021 8:10 AM SCHOOL ATTENDANCE SECRETARY): LDL ok while on non-statins due to intolerance. Continue present Rx for now Assessment & Plan (07/19/2021 7:57 AM SCHOOL ATTENDANCE SECRETARY): LDL ok while on non-statins due to intolerance. Continue present Rx for now Assessment & Plan (07/18/2021 3:52 PM SCHOOL ATTENDANCE SECRETARY): Lipid panel WNL -Continue ezetimibe and fenofibrate PAD (peripheral artery disease) 07/18/2021 PVOD (pulmonary veno-occlusive disease) 07/18/19 Assessment & Plan (07/18/2021 4:00 PM SCHOOL ATTENDANCE SECRETARY): PVOD s/p bilateral iliac stents Unstable angina ([facility]) 07/18/2021 Overview (07/18/2021): Added automatically from request for surgery [id number] Assessment & Plan (07/21/2021 8:10 AM SCHOOL ATTENDANCE SECRETARY): CP concerning for [place]. troponins normal, ruled out for IA. I have recommended coronary angiography and this is scheduled for today. Pt has PAD Continue IV heparin, follow labs and adjust. Continue aspirin, plavix, beta carrie, Patient asymptomatic. Cardiac catheterization scheduled for tomorrow. NPO after midnight. Assessment & Plan (07/20/2021 8:10 AM SCHOOL ATTENDANCE SECRETARY): CP concerning for [place]. troponins normal, ruled out for IA. I have recommended coronary angiography and this is scheduled for Wednesday. Pt has PAD and radial approach may be preferred. Continue IV heparin, follow labs and adjust. Continue aspirin, plavix, beta carrie, Patient asymptomatic. Cardiac catheterization scheduled for tomorrow. NPO after midnight. Assessment & Plan (07/19/2021 7:56 AM SCHOOL ATTENDANCE SECRETARY): CP concerning for [place]. troponins normal, ruled out for [place]. Brief left sided chest pain since admission. I have recommended coronary angiography and this is scheduled for Wednesday. Pt has PAD and radial approach may be preferred. Continue IV heparin, follow labs and adjust. Continue aspiirin, plavix, beta carrie, LDL ok at 80 mg/dl. Pt is statin intolerant BPH with obstruction/lower urinary tract symptom s 06/19/2021 Prostate enlargement 03/06/2021 Overview (03/06/2021): Added automatically from request for surgery [id number] Presbyopia 02/03/2021 Assessment & Plan (08/12/2023 5:06 PM SCHOOL ATTENDANCE SECRETARY): -Noting increased difficulty with near vision while reading -Recommended trialing higher power reading glasses Assessment & Plan (02/03/2021 2:44 PM CDT): Correctable to 20/25 right eye (OD) and left eye (OS). Update specs as desired. Rosacea 09/18/2020 Metatarsalgia of right foot 07/04/2020 Overview (07/04/2020): Added automatically from request for surgery [id number] Sesamoiditis 07/04/2020 Overview (07/04/2020): Added automatically from request for surgery [id number] Painful orthopaedic hardware 07/04/2020 Overview (07/04/2020): Added automatically from request for surgery [id number] Achilles tendon contracture, right 07/04/2020 Overview (07/04/2020): Added automatically from request for surgery [id number] Pseudarthrosis after fusion or arthrodesis 02/28 Overview (02/28/2019): Added automatically from request for surgery [id number] Diabetes mellitus type 2 without retinopathy ([facility] S/HCC) 02/23/2019 Assessment & Plan (02/09/2023 3:33 PM CDT): Continue strict BS control, annual dilated eye exams. Assessment & Plan (06/17/2022 4:09 PM SCHOOL ATTENDANCE SECRETARY): Continue strict BS control, annual dilated eye exams. Assessment & Plan (02/23/2019 10:32 AM CDT): Strict BS control, annual dilated eye exams. 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), bilateral 11/14/2018 Assessment & Plan (04/10/2024 11:18 AM CDT): -Follow up exam for AMD; last visit 08/12/2023 -Exam remains stable with drusen OU -Continue use of AREDS/Amsler -Patient prefers to maintain 6 month follow up interval -Patient had questions about Syfovre -RTC 6 months Assessment & Plan (08/12/2023 5:05 PM SCHOOL ATTENDANCE SECRETARY): -Follow up exam for AMD; last visit 02/09/2023 -Exam remains stable with drusen OU -Continue use of AREDS/Amsler -Offered to further space visits if he prefers given exam stability; he prefers to maintain six-month follow-up -RTC 6 months Assessment & Plan (02/09/2023 3:32 PM CDT): -No signs of exudation. -given the large drusen + pigmentation changes OU, pt is in the high risk category to progress to advanced AMD within the next 5 years. -Cont AREDS/Amsler. -RTC 6months Assessment & Plan (06/17/2022 9:41 AM SCHOOL ATTENDANCE SECRETARY): -No signs of exudation. -given the large drusen + pigmentation changes OU, pt is in the high risk category to progress to advanced AMD within the next 5 years. -Cont AREDS/Amsler. -Discussed follow-up interval. recommended 4-6 months, given stability, patient elects for 6 months. Assessment & Plan (01/07/2022 2:14 PM CDT): -No signs of exudation. -given the large drusen + pigmentation changes OU, pt is in the high risk category to progress to advanced AMD within the next 5 years. -Cont AREDS/Amsler. -rtc 4 months Assessment & Plan (08/13/2021 3:12 PM SCHOOL ATTENDANCE SECRETARY): No signs of exudation. Per AREDS study, given the large drusen + pigmentation changes OU, pt is in the high risk category to progress to advanced AMD within the next 5 years. Cont AREDS/Amsler. Assessment & Plan (01/22/2021 3:57 PM CDT): Early, dry stage both eyes (OU) AREDS2, Amsler monitoring discussed Return 4 months for DFE, OCT mac - if stable can return biannually Assessment & Plan (02/23/2019 10:32 AM CDT): Excellent BCVA and no SRF on macula OCT today. Continue AREDS 2 vitamins, no smoking, UV protection, and healthy diet with green leafy vegetables. Continue home Amsler prn. Follow in 1 year or sooner prn. Assessment & Plan (11/14/2018 3:31 PM CDT): Dry today on exam and by OCT C/w AREDS, Amsler. Continue to not smoke. Use sun protection F/u 6 mo, sooner if changes Discussed with patient that it is difficult to predict vision loss, but good vision now and taking appropriate precautions. Age-related nuclear cataract of both eyes 2018 Assessment & Plan (06/17/2022 4:09 PM SCHOOL ATTENDANCE SECRETARY): NVS, follow. Assessment & Plan (02/23/2019 10:32 AM CDT): SRx given. Assessment & Plan (11/14/2018 1:45 PM CDT): NVS Observe Other headache syndrome 11/14/2018 Assessment & Plan (11/14/2018 3:30 PM CDT): No obvious ophthalmic cause (open angles/deep chamber, no glaucomenflecken), no AC reaction, no nerve edema Given age of onset and duration of episodes, recommend f/u with PCP Hallux rigidus of right foot 06/08/2018 Overview (06/08/2018): Added automatically from request for surgery [id number] Palpitations 04/15/2018 CAD (coronary artery disease) 03/08/2018 Assessment & Plan (07/18/2021 3:42 PM SCHOOL ATTENDANCE SECRETARY): CAD s/p CABG in 2010 (KAUR-LAD which is known to be an atretic graft; vein graft-marginal; and vein graft-2nd marginal branch; RCA occluded, with collateral revascularization) -Last LHC in 11/2018 showed patent KAUR graft to LAD but atretic KAUR graft with patent vein graft to OM1 marginal and right coronary occlusion he has been on medical therapy -Stress test 02/2021 showed inferior infarction without ischemia -Continue aspirin, clopidogrel, BB, amlodipine Assessment & Plan (02/28/2020 3:22 PM CDT): Has been doing well. No chest pain, normal stress test 2018 Continue current meds. Diabetes mellitus type II, non insulin dependent ([facility]) 01/15/2018 Assessment & Plan (07/21/2021 9:50 AM SCHOOL ATTENDANCE SECRETARY): Hemoglobin a1c 6.1 - diet controlled for now Metformin on hold for [facility] Continue to monitor. Assessment & Plan (07/20/2021 8:11 AM SCHOOL ATTENDANCE SECRETARY): Blood sugar stable. Follow-up blood sugar. Treat with insulin as appropriate Metformin being held. Assessment & Plan (02/28/2020 3:23 PM CDT): a1c at target, recommend annual eye exam. Feet are without lesions. Assessment & Plan (11/22/2018 4:43 PM CDT): On metformin 1000mg BID at home -LDSSI Assessment & Plan (11/14/2018 1:46 PM CDT): No DIRECT MARKETING [employer]N Last A1C was 01/2018 but at goal at 6.0% C/w medical management, control BP Annual DFE Assessment & Plan (01/15/2018 4:51 AM CDT): Check A1c. Hold metformin. Low-dose sliding scale. Myocardial infarction 09/09/2017 Nonsustained ventricular tachycardia ([facility]/HCC) 0 09/15/2016 Assessment & Plan (07/18/2021 4:06 PM SCHOOL ATTENDANCE SECRETARY): -Continue metoprolol XL -Telemetry Assessment & Plan (11/22/2018 5:25 PM CDT): Patient with long history of NSVT, on CPAP at home. Improved symptomatically as of last clinic visit, with acute worsening of symptoms in setting of ischemia. -telemetry -CPAP per protocol Presence of cardiac pacemaker 09/10/2015 Assessment & Plan (02/28/2020 3:22 PM CDT): No dizziness, doing well Sick sinus syndrome (CMS/HCC) 05/13/2015 Assessment & Plan (07/21/2021 8:10 AM SCHOOL ATTENDANCE SECRETARY): Pacer function stable Continue present Rx. Continue beta-carrie. Assessment & Plan (07/20/2021 8:10 AM SCHOOL ATTENDANCE SECRETARY): Pacer function stable Continue present Rx. Continue beta-carrie. Assessment & Plan (07/19/2021 7:57 AM SCHOOL ATTENDANCE SECRETARY): Pacer function stable Continue present Rx Assessment & Plan (07/18/2021 4:06 PM SCHOOL ATTENDANCE SECRETARY): History of symptomatic bradycardia a/p dual-chamber Biotronik Eluna pacemaker in April 2015 -Followed by Dr. Maty Weber Assessment & Plan (02/28/2020 3:23 PM CDT): No palpitations, syncope Depressive disorder 03/15/2015 Panic disorder without agoraphobia 03/15/2015 Resolved Problems Problem Noted Date Diagnosed Date Resolved Date Pain in right foot 04/24/2022 LINUS (acute kidney injury) 07/18/2021 Assessment & Plan (07/21/2021 8:12 AM SCHOOL ATTENDANCE SECRETARY): Pt with CKDstage 3, CrCl 50 ml/min. Creatinine improved. Cath today Assessment & Plan (07/20/2021 8:11 AM SCHOOL ATTENDANCE SECRETARY): Pt with CKDstage 3, CrCl 50 ml/min. Repeat BMP today. IV hydration Mikal night before cath recommended. Assessment & Plan (07/19/2021 7:59 AM SCHOOL ATTENDANCE SECRETARY): Pt with CKDstage 3, CrCl 50 ml/min. Stable. IV hydration Mikal night before cath recommended. Assessment & Plan (07/18/2021 3:44 PM SCHOOL ATTENDANCE SECRETARY): LINUS (Cr 1.59 on admission) on CKD (baseline Cr 1.0-1.2) -S/p 500 ml LR bolus in ED -Follow BMPs Statin intolerance 02/10/2021 4 Syncope and collapse 12/30/2020 024 Encounter for screening colonoscopy 10/14/2020 06/17/2023 Overview (10/14/2020): Added automatically from request for surgery [id number] Joint pain 02/28/2020 06/17/2023 Assessment & Plan (04/29/2020 10:45 AM SCHOOL ATTENDANCE SECRETARY): Medrol dose pack Tramadol Q6 PRN (use, safety, s/e reviewed) Referral to Pain Management Assessment & Plan (02/28/2020 3:25 PM CDT): xrays noted, check rheum panel (? H/o pos JENNIFER) Confusion 01/04/2019 06/17/2023 Chest pain 01/15/2018 06/17/2023 Assessment & Plan (07/21/2021 9:47 AM SCHOOL ATTENDANCE SECRETARY): CAD s/p CABG (2010), admitted with chest pain which began approximately 45 minutes prior to arrival while he was exercising which radiated to his left jaw and arm. Also endorsed numbness and tingling in the left arm. Patient additionally reports shortness of breath, lightheadedness diaphoresis, nausea and vomiting. Patient reports taking baby aspirin this morning, and when EMS arrived, they gave him 3 additional doses of aspirin 81mg. They gave him 2 tablets of nitroglycerin, which significantly improved the patient's pain. Pt also reported some epigastric pain in the ED and received GI cocktail, reglan 10 mg IV x 1 and protonix 40 mg IV x 1. -Stress test in 2018 with stable prior infarction, no ischemia -LHC in 11/2018 showed patent KAUR graft to LAD but atretic KAUR graft with patent vein graft to OM1 marginal and right coronary occlusion he has been on medical therapy -TTE 03/18/21: EF 56%, mild aortic valve stenosis -Troponin negative this admission (4-8 ) no more episodes of chest pain -EKG with diffuse T-wave abnormalities (unchanged compared to his last study) -CXR without acute pulmonary process -BP currently well controlled -SL nitroglycerin PRN for chest pain -Telemetry monitoring NPO for [facility] Assessment & Plan (01/16/2018 10:39 AM CDT): No further episodes of chest pain at rest or with exertion Trop negative x 2. Continue medical management with metoprolol 12.5 mg BID, Imdur 30 mg daily, ASA, Plavix 75 mg daily Will plan to discharge home today and have patient follow up for outpatient MPI Assessment & Plan (01/15/2018 4:58 AM CDT): Highly atypical chest pain that was surprisingly responsive to nitroglycerin but he has serious risk factors, especially with diabetes and ? statin intolerance? despite a multivessel CABG in 2002 and repeat PCI to the RCA in 2010. Fortunately, the 1st set of cardiac biomarkers is negative >12 hrs from onset of symptoms. He does have some bigeminal aberrant conduction, and his initial pulse was 40 at the outside hospital so arrhythmias are on the differential. -check troponin x2 q.8 -continue home aspirin and Plavix -nitroglycerin tabs as needed - low threshold for nitroglycerin drip, but currently CP free and comfy -start metoprolol tartrate 12.5 b.i.d. for antianginal and ectopy suppression -continue Zetia (intolerant of statins) -interrogate Biotronik pacemaker in the morning (no controller in the CCU available) -NPO in the morning in case of low likelihood event needs to go for catheterization Essential hypertension 01/15/201801/15 Assessment & Plan (07/18/2021 3:53 PM SCHOOL ATTENDANCE SECRETARY): BP currently well controlled -Continue amlodipine, lisinopril and metoprolol XL Assessment & Plan (02/28/2020 3:23 PM CDT): bp at target Assessment & Plan (11/22/2018 5:24 PM CDT): Continue home antihypertensives. Assessment & Plan (01/16/2018 10:37 AM CDT): Continue Metoprolol and Lisinopril Assessment & Plan (01/15/2018 4:52 AM CDT): Continue home lisinopril. Immunizations Name Administration Dates Next Due Influenza, Quadrivalent, Spl it, Preservative Free, Intramuscular 06/03/2019,08/05/2017 Influenza, Trivalent, High D ose, Split, Preservative Free, Intramuscular 04/25/2024 Pfizer SARS-CoV-2 Monovalent Vaccination (12+ Yrs) PURPLE 06/19/2021 Social History Tobacco Use Types Packs/Day Years Used Date Smoking Tobacco: Former Cigarettes 1 28 1 975 - 2002 Smokeless Tobacco: Never Tobacco Cessation:Counseling Given: Not Answered Alcohol Use Standard Drinks/Week Comments Not Currently 0 (1 standard drink = 0.6 oz pur e alcohol) quit approx 2004 Social Connection and Isolation Panel [NHANES] A nswer Date Recorded In a typical week, how many times do you talk on the phone with family, friends, or neighbors? Twice a week 05/02/20 How often do you get togethe r with friends or relatives? Twice a week 05/02/2021 How often do you attend chur or cheondoism services? 1 to 4 times per year 05/02/2021 Do you belong to any clubs o r organizations such as oriental orthodox groups, unions, fraternal or athletic groups, or school groups? No 05/02/2021 How often do you attend meet ings of the clubs or organizations you belong to? Never 05/02/2021 Are you , , di vorced, , never , or living with a partner? 05/02/2021 AUDIT-C Answer Date Recorded Q1: How often do you have a drink containing alcohol? Never 04/24/2024 Q2: How many drinks containi ng alcohol do you have on a typical day when you are drinking? Patient does not drink Q3: How often do you have si x or more drinks on one occasion? Never 04/24/2024 Overall Financial Resource Strain (CARDIA) Answe r Date Recorded How hard is it for you to pa y for the very basics like food, housing, medical care, and heating? Not hard at all 05/02/2021 Hunger Vital Sign Answer Date Recorded Within the past 12 months, y ou worried that your food would run out before you got the money to buy more. Never true 11/16/19 24 Within the past 12 months, t he food you bought just didn't last and you didn't have money to get more. Never true 11/16/2023 PRAPARE - Transportation Answer Date Re corded In the past 12 months, has l ack of transportation kept you from medical appointments or from getting medications? No 04/14 In the past 12 months, has l ack of transportation kept you from meetings, work, or from getting things needed for daily living? No 05/02/2021 Personal Safety Answer Date Recorded Have you ever been in or are you currently in a harmful physical or emotional relationship or is someone making you feel afraid or unsafe? Denies 07/04/2024 Sex and Gender Information Value Date Recorded Sex Assigned at Not on file Legal Sex Male 11:34 PM SCHOOL ATTENDANCE SECRETARY Gender Identity Not on file Sexual Orientation Not on file Last Filed Vital Signs Vital Sign Reading Time Taken Comments Blood Pressure 126/84 07/04/2024 9:15 AM SCHOOL ATTENDANCE SECRETARY Pulse 78 07/04/2024 9:15 AM SCHOOL ATTENDANCE SECRETARY Temperature 36.2 ??C (97.2 ??F) 07/04/2024 2:39 AM CS T Respiratory Rate 16 07/04/2024 9:15 AM SCHOOL ATTENDANCE SECRETARY Oxygen Saturation 96% 07/04/2024 9:15 AM SCHOOL ATTENDANCE SECRETARY Inhaled Oxygen Concentration - - Weight 90.7 kg (200 lb) 07/04/2024 2:36 AM SCHOOL ATTENDANCE SECRETARY Height 180.3 cm (5' 11 ) 07/04/2024 2:36 AM SCHOOL ATTENDANCE SECRETARY Body Mass Index 27.89 07/04/2024 2:36 AM SCHOOL ATTENDANCE SECRETARY Plan of Treatment Not on file Goals Goal Patient Goal Type Associated Problems Recent Progress Patient-Stated? Author CCM Chronic Pain Care Plan Chronic Care Management No change(12/14 10:43 AM CDT) No Brissa Muse, RN Note: Problem: Chronic Pain Goals: 1. Minimize further functional decline 2. Maximize quality of life 3. Control pain Strategies: - Activity/exercise program recommendation - Conservative stepwise pain medicine strategy with multi-disciplinary approach - Recommend healthy lifestyle strategies and compensatory methods as needed Medical Devices Implanted Type Area School Attendance Secretary Device Identifier Shelf Expiration Date Model / Serial / Lot [email or web address] Medical Lewis Angio-Seal Vip 6fr Closere Device [id number] - [id number] - [id number] Implanted:Qty: 1 on 11/25/2022 by Eliecer Mixon MD at [facility] Collagen Terumo Medical Lewis 06/13/2023 [id number] / [id number] / [id number] Lead (Ra)-05/08/2015 Implanted:05/08/2015 by Maty Weber MD (Quantity not on file) Lead Heart Biotronik 350 974 SETROX S 53 / [id number] / Lead (Rv)-05/08/2015 Implanted:05/08/2015 by Maty Weber MD (Quantity not on file) Lead Heart Biotronik 350 975 SETROX S 60 / [id number] / Pacemaker-05/08/2015 Implanted:05/08/2015 by Maty Weber MD (Quantity not on file) Pacemaker Left: Chest Biotronik [id number] ELUNA 8 JOVANNI AGUILA / [id number] / Synthes 201.814 2mm 3.5mm 14mm Self Tap Cruciform Cortex Screw Bone Stainless - S0 - [id number] Implanted:Qty: 1 on 08/06/2020 by Zoey Sexton MD at [facility] Screw Synthes I 201.814 / 0 / Medtronic Card Vasc Surgery 4.0 X 26mm [place] [facility] Coronary Stent [id number] - [id number] - [id number] Implanted:Qty: 1 on 11/25/2022 by Clifford Sandy MD at [facility] Stent Medtronic Card Vasc Surgery 06/26/2025 [id number] / [id number] / [id number] Orthohelix [id number] Maxtorque 4mm 32.5mm Cannulated Self Drill Foot Ankle Long Thread - [id number] Implanted:Qty: 1 on 06/28/2018 at [facility] Right: Foot Orthohelix MSD-010- 40-325L / / Orthohelix Numerical Control Tool Programmer-002-Pmx Ortholink 3 Hole [place] Foot Ankle Standard Plate Bone Nonsterile Latex Free - [id number] Implanted:Qty: 1 on 06/28/2018 at [facility] Right: Foot Orthohelix BIOCHEMISTRY TECHNOLOGIST-002- PMX / / Orthohelix [id number] Maxlock Extreme 4mm 16mm Nonlock Foot Ankle Screw Bone Nonsterile - [id number] Implanted:Qty: 1 on 06/28/2018 at [facility] Right: Foot Orthohelix BIOCHEMISTRY TECHNOLOGIST-011- 4016 / / Orthohelix Oui-[id number] Maxlock Extreme 4mm 18mm Nonlock Foot Ankle Screw Bone Nonsterile Latex Free - [id number] Implanted:Qty: 1 on 06/28/2018 at [facility] Right: Foot Orthohelix BIOCHEMISTRY TECHNOLOGIST-011- 40-18 / / Orthohelix [id number] Maxlock Extreme 4mm 14mm Nonlock Foot Ankle Screw Bone Nonsterile Latex Free - [id number] Implanted:Qty: 1 on 06/28/2018 at [facility] Right: Foot Orthohelix BIOCHEMISTRY TECHNOLOGIST-011- 4014 / / Daig [employer] [id number] Angio-Seal Evolution 6fr .035in Guidewire Bypass Tube Suture - [id number] Implanted:Qty: 1 on 11/22/2018 by Sarah Vasquez MD at [facility] [employer]ig [employer] 08/12/2019 [id number] / / [id number] Medtronic Sofamor D[place] [id number] Infuse 14mm 23mm Absorbable Sponge Sterile Water Syringe Needle - [id number] Implanted:Qty: 1 on 06/02/2019 by Zoey Sexton MD at [facility] Right: Foot Medtronic Inc 01/11/2021 [id number] / / [id number] Playroll Inc [id number] Plate Bone Medline Unite 0 D Medium Metatarsophalangeal Right Fusion Nonsterile - [id number] Implanted:Qty: 1 on 06/02/2019 by Zoey Sexton MD at [facility] Right: Foot Medline Industries Inc [id number] / / Medline Industries Inc [id number] Pin Fixation Medline Unite L10mm Od1.1mm - [id number] Implanted:Qty: 1 on 06/02/2019 by Zoey Sexton MD at [facility] Right: Foot [employer]line Industries Inc [id number] / / Medline Industries Inc [id number] Screw Bone Medline Unite L34mm Od4.5mm Head Nonsterile - [id number] Implanted:Qty: 1 on 06/02/2019 by Zoey Sexton MD at [facility] Right: Foot [employer]line Industries Inc [id number] / / Medline Industries Inc [id number] Screw Bone Medline Unite L16mm Od3.5mm Foot Ankle Nonlock - [id number] Implanted:Qty: 1 on 06/02/2019 by Zoey Sexton MD at [facility] Right: Foot [employer] Inc [id number] / / [employer] Inc [id number] Screw Bone Medline Unite L18mm Od3.5mm Foot Ankle Nonlock - [id number] Implanted:Qty: 1 on 06/02/2019 by Zoey Sexton MD at [facility] Right: Foot [employer] Inc [id number] / / Medline Industries Inc [id number] Screw Bone Medline Unite L20mm Od3.5mm Foot Ankle Nonlock - [id number] Implanted:Qty: 2 on 06/02/2019 by Zoey Sexton MD at [facility] Right: Foot [employer] Inc [id number] / / [employer] Triathlon Cruciate Retain Bead Knee Left 5 Component Femoral Pa 5517-F-501 - [id number] Implanted:Qty: 1 on 04/24/2024 by Zbigniew Noel MD at [facility] [employer] [facility] [id number] 02/27/2029 5517-F-5 01 / / [id number] [employer] Triathlon Knee 6 Baseplate Tibial Tritanium 5536-B-600 - [id number] Implanted:Qty: 1 on 04/24/2024 by Zbigniew Noel MD at [facility] [id number] 11/08/2028 5536-B-6 00 / / [id number] [employer] Insert Tibial Triathlon 6 H11mm Knee Bearing Condylar Stabilize Sterile 4171-R-345-E - [id number] Implanted:Qty: 1 on 04/24/2024 by Zbigniew Noel MD at [facility] [employer] [id number] 12/19/2028 5531-G-6 11-E / / [id number] Explanted Type Area School Attendance Secretary Device Identifier Shelf Expiration Date Model / Serial / Lot [employer]aire [employer] Instruments [id number] Anne .45in 9in 1 [place] [employer] Wire Fixation - S0 - [id number] Explanted:Qty: 1 on 08/06/2020 by Zoey Sexton MD at [facility] Wire [employer] Instruments [id number] S / 0 / Description:Provisional fixa tion [employer] [id number] Anne .062in 9in 1 [place] Smooth Wire Fixation - [id number] Explanted:Qty: 1 on 06/28/2018 at [facility] Right: Foot [employer] [id number] / / Description:Provisional fixa tion [employer] [id number] Anne .062in 9in 1 [place] Smooth Wire Fixation - [id number] Explanted:Qty: 1 on 06/28/2018 at [facility] Right: Foot [employer] [id number] / / Description:Provisional fixa tion [employer] 7597-3800 Anne .062in 9in 1 [place] Smooth Wire Fixation - [id number] Explanted:Qty: 1 on 06/28/2018 at [facility] Right: Foot [employer] [id number] / / Description:Provisional fixa tion Screw Explanted:Qty: 5 on 08/06/2020 by Zoey Sexton MD at [facility] Other / 0 / Plate Explanted:Qty: 1 on 08/06/2020 by Drew Espinosa MD at [facility] Other / 0 / Procedures Procedure Name Priority Date/Time Associated Diagnosis Comments EGFR Timed 07/04/2024 6:54 AM SCHOOL ATTENDANCE SECRETARY BASIC METABOLIC PANEL Timed 07/04/2024 6:54 AM SCHOOL ATTENDANCE SECRETARY EGFR STAT 07/04/2024 4:25 AM SCHOOL ATTENDANCE SECRETARY DIFFERENTIAL AUTO STAT 07/04/2024 4:2 5 AM SCHOOL ATTENDANCE SECRETARY COMPREHENSIVE METABOLIC PANEL STAT 07/04/2024 4:25 AM SCHOOL ATTENDANCE SECRETARY CBC WITH AUTO DIFFERENTIAL STAT 07/04/2024 4:25 AM SCHOOL ATTENDANCE SECRETARY URINALYSIS, MICROSCOPIC ONLY STAT 07/04/2024 4:24 AM SCHOOL ATTENDANCE SECRETARY URINE CULTURE STAT 07/04/2024 4:24 AM SCHOOL ATTENDANCE SECRETARY URINALYSIS AND REFLEX TO MICROSCOPIC AND CULTURE STAT 07/04/2024 4:24 AM SCHOOL ATTENDANCE SECRETARY SCAN - PATHOLOGY 06/28/2024 12:29 PM SCHOOL ATTENDANCE SECRETARY SCAN - LABS 06/27/2024 2:55 PM SCHOOL ATTENDANCE SECRETARY SCAN - RADIOLOGY/IMAGING 06/27/2024 1:08 PM SCHOOL ATTENDANCE SECRETARY SCAN - LABS 06/22/2024 10:12 PM SCHOOL ATTENDANCE SECRETARY SCAN - LABS 06/21/2024 4:59 PM SCHOOL ATTENDANCE SECRETARY XR HIP RIGHT 2 OR 3 VIEWS Schedule Routine, Read Routine (OP Routine) 06/16/2024 11:40 AM SCHOOL ATTENDANCE SECRETARY Bilateral hip pain XR HIP LEFT 2 OR 3 VIEWS Schedule Routine, Read Routine (OP Routine) 06/16/2024 11:40 AM SCHOOL ATTENDANCE SECRETARY Bilateral hip pain SCAN - LABS 06/05/2024 8:41 AM SCHOOL ATTENDANCE SECRETARY XR KNEE LEFT 4 OR MORE VIEWS Schedule Routine, Read Routine (OP Routine) 05/19/2024 1:06 PM SCHOOL ATTENDANCE SECRETARY Encounter for other specified surgical aftercare SCAN - LABS 05/16/2024 6:07 PM SCHOOL ATTENDANCE SECRETARY SCAN - LABS 05/15/2024 11:32 AM SCHOOL ATTENDANCE SECRETARY SCAN - LABS 05/15/2024 8:52 AM SCHOOL ATTENDANCE SECRETARY SCAN - LABS 05/14/2024 4:57 PM SCHOOL ATTENDANCE SECRETARY SCAN - LABS 05/13/2024 6:07 PM SCHOOL ATTENDANCE SECRETARY SCAN - LABS 05/13/2024 4:58 PM SCHOOL ATTENDANCE SECRETARY SCAN - RADIOLOGY/IMAGING 05/13/2024 2:02 PM SCHOOL ATTENDANCE SECRETARY POCT GLUCOSE DEVICE Routine 04/25/2024 12:21 PM SCHOOL ATTENDANCE SECRETARY POCT GLUCOSE DEVICE Routine 04/25/2024 8 :13 AM SCHOOL ATTENDANCE SECRETARY EGFR Routine 04/24/2024 7:49 PM SCHOOL ATTENDANCE SECRETARY BASIC METABOLIC PANEL Routine 04/24/2024 7:49 PM SCHOOL ATTENDANCE SECRETARY CBC WITHOUT DIFFERENTIAL Routine 04/24/2024 7:49 PM SCHOOL ATTENDANCE SECRETARY POCT GLUCOSE DEVICE Routine 04/24/2024 7 :45 PM SCHOOL ATTENDANCE SECRETARY POCT GLUCOSE DEVICE Routine 04/24/2024 4 :51 PM SCHOOL ATTENDANCE SECRETARY POCT GLUCOSE DEVICE Routine 04/24/2024 12:43 PM SCHOOL ATTENDANCE SECRETARY XR KNEE LEFT 1 OR 2 VIEWS ED Urgent/IP Urgent 04/24/2024 9:44 AM SCHOOL ATTENDANCE SECRETARY POCT GLUCOSE DEVICE Routine 04/24/2024 9 :34 AM SCHOOL ATTENDANCE SECRETARY POCT GLUCOSE DEVICE Routine 04/24/2024 8 :29 AM SCHOOL ATTENDANCE SECRETARY AL AN PROCEDURE PLACEHOLDER Routine 04/24/2024 7:36 AM SCHOOL ATTENDANCE SECRETARY AL AN PROCEDURE PLACEHOLDER Routine 04/24/2024 7:35 AM SCHOOL ATTENDANCE SECRETARY ARTHROPLASTY TOTAL KNEE - MARION 04/24/2024 7:30 AM SCHOOL ATTENDANCE SECRETARY Primary osteoarthritis of left knee ANESTHESIA SPINAL BLOCK Routine 04/24/2024 7:19 AM SCHOOL ATTENDANCE SECRETARY POCT GLUCOSE DEVICE Routine 04/24/2024 6 :17 AM SCHOOL ATTENDANCE SECRETARY PROTIME-INR Routine 04/24/2024 6:14 AM SCHOOL ATTENDANCE SECRETARY DEVICE CHECK - REMOTE Routine 04/12/2024 3:15 AM CDT POCT HEMOGLOBIN A1C Routine 03/27/2024 2 :16 PM CDT CTA ABDOMINAL AORTA AND BILATERAL ILIOFEMORAL RUNOFF Schedule Routine, Read Routine (OP Routine) 09/27/2023 11:27 AM CDT Claudication in peripheral vascular disease (HCC) POCT LIPID PANEL Routine 09/21/2023 9:27 AM CDT Mixed hyperlipidemia PSA SCREEN Routine 06/17/2023 10:13 AM SCHOOL ATTENDANCE SECRETARY Prostate cancer screening COLONOSCOPY 01/01/2021 12:16 PM CDT from Last 3 Months or Most Recently Relevant to Health Maintenance Results * eGFR (07/04/2024 6:54 AM SCHOOL ATTENDANCE SECRETARY) eGFR 65 >=60 mL/min/1. 73 m2 Comment: Interpretive Data Reference Interval Normal ?>/= 90 mL/min/1.73m2 Mildly decreased* ? 60 - 89 mL/min/1.73m2 Mildly to moderately decreased ?45 - 59 mL/min/1.73m2 Moderately to severely decreased ??30 - 44 mL/min/1.73m2 Severely decreased ?15 - 29 mL/min/1.73m2 Kidney Failure ?< 15 ??mL/min/1.73m2 *Relative to young adult level Estimated glomerular filtration rate is determined by the 2020 CKD-EPI equation recommended by the National Kidney Foundation (A Unifying Approach to GFR Estimation: Recommendations of the NKF-ASK Task Force on Reassessing the Inclusion of Race in Diagnosing Kidney Disease, JASN 2020). The CKD-EPI equation should not be used for patients with unstable renal function and has not been validated in children and those over 70. Current interpretive data was last reviewed 2021. Blood 07/04/2024 6:54 AM SCHOOL ATTENDANCE SECRETARY 07/04/2024 7:02 AM SCHOOL ATTENDANCE SECRETARY Josias Muir MD LAB BLOOD ORDERABLES Fi nal Result [facility] Department [place] [address] * Basic metabolic panel (07/04/2024 6:54 AM SCHOOL ATTENDANCE SECRETARY) Pathologist [facility] Sodium 138 135 - 145 mmol/L Potassium, pl 4.2 3.3 - 4.9 mmol/L [facility] Chloride 103 97 - 110 mmol/L [facility] CO2 28 22 - 32 mmol/L [facility] Anion gap 7 2 - 15 mmol/L [facility] BUN 19 6 - 25 mg/dL [facility] Creatinine 1.20 0.80 - 1.30 mg/dL [facility] Glucose 137 70 - 199 mg/dL [facility] Comment: Interpretive Data Fasting glucose >/= 126 mg/dl is diagnostic for diabetes. ?? Fasting is defined as no caloric intake for at least 8 hours. Fasting glucose between 100 mg/dl to 125 mg/dl is diagnostic of prediabetes. In a patient with classic symptoms of hyperglycemia or hyperglycemic crisis, a random glucose >/= 200 mg/dl is diagnostic for diabetes. In the absence of unequivocal hyperglycemia, results should be confirmed by repeat testing. The classification and Diagnosis of Diabetes Diabetes Care 202; 46: S19-S40. Current interpretive data was last revised 2022. Calcium 9.2 8.5 - 10.3 mg/dL [facility] Blood 07/04/2024 6:54 AM SCHOOL ATTENDANCE SECRETARY 07/04/2024 7:02 AM SCHOOL ATTENDANCE SECRETARY us Josias Muir MD LAB BLOOD ORDERABLES Fi nal Result [facility] Department [place] [address] * eGFR (07/04/2024 4:25 AM SCHOOL ATTENDANCE SECRETARY) eGFR 67 >=60 mL/min/1. 73 m2 Comment: Interpretive Data Reference Interval Normal ?>/= 90 mL/min/1.73m2 Mildly decreased* ? 60 - 89 mL/min/1.73m2 Mildly to moderately decreased ?45 - 59 mL/min/1.73m2 Moderately to severely decreased ??30 - 44 mL/min/1.73m2 Severely decreased ?15 - 29 mL/min/1.73m2 Kidney Failure ?< 15 ??mL/min/1.73m2 *Relative to young adult level Estimated glomerular filtration rate is determined by the 2020 CKD-EPI equation recommended by the National Kidney Foundation (A Unifying Approach to GFR Estimation: Recommendations of the NKF-ASK Task Force on Reassessing the Inclusion of Race in Diagnosing Kidney Disease, JASN 2020). The CKD-EPI equation should not be used for patients with unstable renal function and has not been validated in children and those over 70. Current interpretive data was last reviewed 2021. Blood 07/04/2024 4:25 AM SCHOOL ATTENDANCE SECRETARY 07/04/2024 4:34 AM SCHOOL ATTENDANCE SECRETARY us Josias Muir MD LAB BLOOD ORDERABLES Fi nal Result [facility] Department [place] [address] * (ABNORMAL) Differential, auto (07/04/2024 4:25 AM SCHOOL ATTENDANCE SECRETARY) Neutrophil abs 3.3 1.5 - 6.5 K/cumm Imm gran abs 0.0 0.0 - 0.1 K/cumm [facility] Lymphocyte abs 1.6 0.8 - 3.3 K/cumm [facility] Monocyte abs 1.0(H) 0.2 - 0.8 K/cumm [facility] Eosinophil abs 0.4 0.0 - 0.5 K/cumm [facility] Basophil abs 0.1 0.0 - 0.1 K/cumm [facility] Neutrophil pct 51.9 % [facility] Comment: Interpretive Data Percent cell count reference ranges are not reported, since discordance with absolute values may lead to misinterpretation of CBC data. Current Interpretive Data was last revised on 2017. Imm gran pct 0.5 % [facility] Comment: Interpretive Data Percent cell count reference ranges are not reported, since discordance with absolute values may lead to misinterpretation of CBC data. Current Interpretive Data was last revised on 2017. Lymphocyte pct 25.7 % [facility] Comment: Interpretive Data Percent cell count reference ranges are not reported, since discordance with absolute values may lead to misinterpretation of CBC data. Current Interpretive Data was last revised on 2017. Monocyte pct 15.1 % [facility] Comment: Interpretive Data Percent cell count reference ranges are not reported, since discordance with absolute values may lead to misinterpretation of CBC data. Current Interpretive Data was last revised on 2017. Eosinophil pct 5.5 % [facility] Comment: Interpretive Data Percent cell count reference ranges are not reported, since discordance with absolute values may lead to misinterpretation of CBC data. Current Interpretive Data was last revised on 2017. Basophil pct 1.3 % [facility] Comment: Interpretive Data Percent cell count reference ranges are not reported, since discordance with absolute values may lead to misinterpretation of CBC data. Current Interpretive Data was last revised on 2017. Blood 07/04/2024 4:25 AM SCHOOL ATTENDANCE SECRETARY 07/04/2024 4:34 AM SCHOOL ATTENDANCE SECRETARY Josias Muir MD LAB BLOOD ORDERABLES Fi nal Result Performing Organization Address City/[facility]/ZIP Co de Phone Number [facility] [place] [address] * CBC with auto differential (07/04/2024 4:25 AM SCHOOL ATTENDANCE SECRETARY) WBC 6.3 3.8 - 9.9 K/cumm Hgb 13.1 13.0 - 17.5 g/dL [facility] Hct 40.1 38.9 - 50.3 % [facility] Plt 231 150 - 400 K/cumm [facility] MPV 9.5 9.1 - 12.3 fL [facility] RBC 4.41 4.30 - 5.80 M/cumm [facility] MCV 90.9 81.3 - 96.4 fL [facility] MCH 29.7 27.1 - 33.3 pg [facility] MCHC 32.7 32.3 - 35.7 g/dL [facility] RDW CV 13.2 11.1 - 14.9 % [facility] RDW SD 43.4 35.7 - 48.1 fL [facility] NRBC abs 0.00 0.00 - 0.01 K/cumm [facility] Blood 07/04/2024 4:25 AM SCHOOL ATTENDANCE SECRETARY 07/04/2024 4:34 AM SCHOOL ATTENDANCE SECRETARY Josias Muir MD LAB BLOOD ORDERABLES Fi nal Result Performing Organization Address City/[facility]/ZIP Co de Phone Number [facility] Department [place] [address] * (ABNORMAL) Comprehensive metabolic panel (07/04/2024 4:25 AM SCHOOL ATTENDANCE SECRETARY) Sodium 140 135 - 145 mmol/L Potassium, pl 4.2 3.3 - 4.9 mmol/L [facility] Chloride 103 97 - 110 mmol/L [facility] CO2 27 22 - 32 mmol/L [facility] Anion gap 10 2 - 15 mmol/L [facility] BUN 19 6 - 25 mg/dL [facility] Creatinine 1.17 0.80 - 1.30 mg/dL [facility] Glucose 136 70 - 199 mg/dL [facility] Comment: Interpretive Data Fasting glucose >/= 126 mg/dl is diagnostic for diabetes. ?? Fasting is defined as no caloric intake for at least 8 hours. Fasting glucose between 100 mg/dl to 125 mg/dl is diagnostic of prediabetes. In a patient with classic symptoms of hyperglycemia or hyperglycemic crisis, a random glucose >/= 200 mg/dl is diagnostic for diabetes. In the absence of unequivocal hyperglycemia, results should be confirmed by repeat testing. The classification and Diagnosis of Diabetes Diabetes Care 202; 46: S19-S40. Current interpretive data was last revised 2022. Calcium 9.5 8.5 - 10.3 mg/dL [facility] Bilirubin, total 0.3 0.1 - 1.2 mg/dL [facility] Protein, pl 7.2 6.5 - 8.5 g/dL [facility] Albumin 4.2 3.5 - 5.0 g/dL [facility] Alk phos 39(L) 40 - 130 Units/L [facility] ALT 12 7 - 55 Units/L [facility] AST 24 10 - 50 Units/L [facility] Blood 07/04/2024 4:25 AM SCHOOL ATTENDANCE SECRETARY 07/04/2024 4:34 AM SCHOOL ATTENDANCE SECRETARY us Josias Muir MD LAB BLOOD ORDERABLES Fi nal Result [facility] Department [place] [address] * (ABNORMAL) Urinalysis reflex to microscopic and culture Urine, bladder (07/04/2024 4:24 AM SCHOOL ATTENDANCE SECRETARY) Color, ur Straw Yellow Clarity, ur Cloudy(A) Clear [facility] Specific gravity, ur 1.032(H) 1.003 - 1.030 [facility] pH, urine 6.0 [facility] Comment: Interpretive Data ? Urine pH is affected by diet, medications, systemic acid-base disturbances, and renal tubular function. ??pH may affect urinary stone formation. ??For example, urine pH below 6.0 may help reduce the tendency for calcium phosphate stones and pH greater than 6.0 may reduce the tendency for uric acid stone formation. Source: [facility] Current Interpretive Data was last revised on 2017 Protein, ur ql 1+(A) Negative [facility] Glucose, ur ql Negative Negative [facility] Ketones, ur Negative Negative [facility] Bilirubin, ur Negative Negative [facility] Blood, ur 3+(A) Negative [facility] Urobilinogen, ur <2.0 <2.0 mg/dL [facility] Nitrite, ur Negative Negative [facility] Leukocyte esterase, ur Trace(A) Negative [facility] UA reflex comment Reflex to microscopic UA will be performed. [facility] Urine, bladder 07/04/2024 4: 24 AM SCHOOL ATTENDANCE SECRETARY 07/04/2024 4:32 AM SCHOOL ATTENDANCE SECRETARY Josias Muir MD LAB MICROBIOLOGY - [facility] ORDERABLES Final Result [facility] Department [place] [address] * (ABNORMAL) Urinalysis, microscopic only (07/04/2024 4:24 AM SCHOOL ATTENDANCE SECRETARY) WBC, ur 21-50(A) 0 - 5 /HPF RBC, ur >50(A) 0 - 2 /HPF [facility] Mucous, ur Present(A) [facility] Culture Reflex Comment Reflex to urine culture will be performed. [facility] Urine, bladder 07/04/2024 4: 24 AM SCHOOL ATTENDANCE SECRETARY 07/04/2024 4:32 AM SCHOOL ATTENDANCE SECRETARY Result [facility] Josias Muir MD LAB URINE ORDERABLES Fi nal Result Performing Organization Address [facility] Co de Phone Number [facility] Department [place] [address] * Urine culture Urine, bladder (07/04/2024 4:24 AM SCHOOL ATTENDANCE SECRETARY) Report Final Report: No growth Urine, bladder 07/04/2024 4: 24 AM SCHOOL ATTENDANCE SECRETARY 07/04/2024 5:53 AM SCHOOL ATTENDANCE SECRETARY Narrative [facility] - 07/05/2024 7:16 AM SCHOOL ATTENDANCE SECRETARY Urine culture reflexed based upon urinalysis results. Testing performed by [facility] ([phone]) Result [facility] Josias Muir MD LAB MICROBIOLOGY - GENE RAL ORDERABLES Final Result Performing Organization Address [facility] de Phone Number [facility] Department [place] [address] * SCAN - PATHOLOGY (06/28/2024 12:29 PM SCHOOL ATTENDANCE SECRETARY) us Perry Romero MD Final Result * SCAN - LABS (06/27/2024 2:55 PM SCHOOL ATTENDANCE SECRETARY) us Perry Romero MD Final Result * SCAN - RADIOLOGY/IMAGING (06/27/2024 1:08 PM SCHOOL ATTENDANCE SECRETARY) Anatomical Region Laterality Modality Other us Perry Romero MD Final Result * SCAN - LABS (06/22/2024 10:12 PM SCHOOL ATTENDANCE SECRETARY) Result Stella Romero MD Final Result * SCAN - LABS (06/21/2024 4:59 PM SCHOOL ATTENDANCE SECRETARY) Perry Romero MD Final Result * XR Hip Right 2 or 3 Views (06/16/2024 11:40 AM SCHOOL ATTENDANCE SECRETARY) Anatomical Region Laterality Modality Lower Extremities, Hip, Pelvis Right C omputed Radiography 06/16/2024 11:4 9 AM SCHOOL ATTENDANCE SECRETARY Impressions 06/16/2024 11:49 AM SCHOOL ATTENDANCE SECRETARY 1. ??Mild bilateral hip osteoarthritis. Electronically signed by: Yin Malone MD Narrative 06/16/2024 11:49 AM SCHOOL ATTENDANCE SECRETARY EXAMINATION: XR HIP LEFT 2 OR 3 VIEWS, XR HIP RIGHT 2 OR 3 VIEWS HISTORY: ??Hip pain. FINDINGS: Comparison to 04/20/2023, 09/03/2021. Mild bilateral hip osteoarthritis. ??Labral heterotopic ossification bilaterally, right greater than left. ??No acute fracture. ??Alignment is normal. ??Surgical clips overlie the right proximal thigh. Vascular stent overlies the left pelvis. ??Atherosclerotic calcifications. Procedure Note Yin Malone MD - 06/16/2024 EXAMINATION: XR HIP LEFT 2 OR 3 VIEWS, XR HIP RIGHT 2 OR 3 VIEWS HISTORY: Hip pain. FINDINGS: Comparison to 04/20/2023, 09/03/2021. Mild bilateral hip osteoarthritis. Labral heterotopic ossification bilaterally, right greater than left. No acute fracture. Alignment is normal. Surgical clips overlie the right proximal thigh. Vascular stent overlies the left pelvis. Atherosclerotic calcifications. IMPRESSION: 1. Mild bilateral hip osteoarthritis. Electronically signed by: Yin Malone MD Raisa Blanco DITCHING MACHINE ENGINEER IMG XR PROCEDURES Final Resul t * XR Hip Left 2 or 3 Views (06/16/2024 11:40 AM SCHOOL ATTENDANCE SECRETARY) Anatomical Region Laterality Modality Lower Extremities, Hip, Pelvis Left C omputed Radiography 06/16/2024 11:4 9 AM SCHOOL ATTENDANCE SECRETARY Impressions 06/16/2024 11:49 AM SCHOOL ATTENDANCE SECRETARY 1. ??Mild bilateral hip osteoarthritis. Electronically signed by: Yin Malone MD Narrative 06/16/2024 11:49 AM SCHOOL ATTENDANCE SECRETARY EXAMINATION: XR HIP LEFT 2 OR 3 VIEWS, XR HIP RIGHT 2 OR 3 VIEWS HISTORY: ??Hip pain. FINDINGS: Comparison to 04/20/2023, 09/03/2021. Mild bilateral hip osteoarthritis. ??Labral heterotopic ossification bilaterally, right greater than left. ??No acute fracture. ??Alignment is normal. ??Surgical clips overlie the right proximal thigh. Vascular stent overlies the left pelvis. ??Atherosclerotic calcifications. Procedure Note Yin Malone MD - 06/16/2024 EXAMINATION: XR HIP LEFT 2 OR 3 VIEWS, XR HIP RIGHT 2 OR 3 VIEWS HISTORY: Hip pain. FINDINGS: Comparison to 04/20/2023, 09/03/2021. Mild bilateral hip osteoarthritis. Labral heterotopic ossification bilaterally, right greater than left. No acute fracture. Alignment is normal. Surgical clips overlie the right proximal thigh. Vascular stent overlies the left pelvis. Atherosclerotic calcifications. IMPRESSION: 1. Mild bilateral hip osteoarthritis. Electronically signed by: Yin Malone MD us Raisa Blanco DITCHING MACHINE ENGINEER IMG XR PROCEDURES Final Resul t * SCAN - LABS (06/05/2024 8:41 AM SCHOOL ATTENDANCE SECRETARY) Perry Romero MD Final Result * XR Knee Left 4 or More Views (05/19/2024 1:06 PM SCHOOL ATTENDANCE SECRETARY) Anatomical Region Laterality Modality Lower Extremities, Knee Left Computed Radiography 05/19/2024 2:15 PM SCHOOL ATTENDANCE SECRETARY Impressions 05/19/2024 2:53 PM SCHOOL ATTENDANCE SECRETARY 1. Left 2-component knee arthroplasty in near anatomic alignment. 2. Mild left knee valgus and right knee varus malalignment. Dictated by: Perry Rodriguez M.D. The radiology attending physician has personally reviewed this study, and had reviewed and/or edited this written report and agrees with it. Electronically signed by: Jaswant Bloom MD Narrative 05/19/2024 2:53 PM SCHOOL ATTENDANCE SECRETARY EXAMINATION: XR KNEE LEFT 4 OR MORE VIEWS HISTORY: Left knee osteoarthritis status post left knee arthroplasty on 04/24/2024 COMPARISON: 04/24/2024 FINDINGS: Postoperative changes of left 2-component knee arthroplasty. No periprosthetic fracture, component migration, or perihardware lucency. Moderate knee joint effusion. Mild soft tissue swelling about the knee. Mild left knee valgus and right knee varus malalignment. Diffuse atherosclerotic calcifications. Procedure Note Jaswant Bloom MD - 05/19/2024 EXAMINATION: XR KNEE LEFT 4 OR MORE VIEWS HISTORY: Left knee osteoarthritis status post left knee arthroplasty on 04/24/2024 COMPARISON: 04/24/2024 FINDINGS: Postoperative changes of left 2-component knee arthroplasty. No periprosthetic fracture, component migration, or perihardware lucency. Moderate knee joint effusion. Mild soft tissue swelling about the knee. Mild left knee valgus and right knee varus malalignment. Diffuse atherosclerotic calcifications. IMPRESSION: 1. Left 2-component knee arthroplasty in near anatomic alignment. 2. Mild left knee valgus and right knee varus malalignment. Dictated by: Perry Rodriguez M.D. The radiology attending physician has personally reviewed this study, and had reviewed and/or edited this written report and agrees with it. Electronically signed by: Jaswant Bloom MD Zbigniew Noel MD IMG XR PROCEDURES Fi nal Result * SCAN - LABS (05/16/2024 6:07 PM SCHOOL ATTENDANCE SECRETARY) Perry Romero MD Final Result * SCAN - LABS (05/15/2024 11:32 AM SCHOOL ATTENDANCE SECRETARY) Perry Romero MD Final Result * SCAN - LABS (05/15/2024 8:52 AM SCHOOL ATTENDANCE SECRETARY) us Perry Romero MD Final Result * SCAN - LABS (05/14/2024 4:57 PM SCHOOL ATTENDANCE SECRETARY) us Perry Romero MD Final Result * SCAN - LABS (05/13/2024 6:07 PM SCHOOL ATTENDANCE SECRETARY) us Perry Romero MD Final Result * SCAN - LABS (05/13/2024 4:58 PM SCHOOL ATTENDANCE SECRETARY) us Perry Romero MD Final Result * SCAN - RADIOLOGY/IMAGING (05/13/2024 2:02 PM SCHOOL ATTENDANCE SECRETARY) Anatomical Region Laterality Modality Other us Perry Romero MD Final Result * POCT glucose (04/25/2024 12:21 PM SCHOOL ATTENDANCE SECRETARY) [facility] Glucose, POC 132 70 - 199 mg/dL Blood 04/25/2024 12:2 1 PM SCHOOL ATTENDANCE SECRETARY 04/25/2024 12:21 PM SCHOOL ATTENDANCE SECRETARY Zbigniew Noel MD LAB POCT ORDERABLES - DEVICE Final Result Performing Organization Address [facility] de Phone Number [facility] Department [place] [address] * POCT glucose (04/25/2024 8:13 AM SCHOOL ATTENDANCE SECRETARY) [facility] Glucose, POC 147 70 - 199 mg/dL Blood 04/25/2024 8:13 AM SCHOOL ATTENDANCE SECRETARY 04/25/2024 8:13 AM SCHOOL ATTENDANCE SECRETARY Zbigniew Noel MD LAB POCT ORDERABLES - DEVICE Final Result Performing Organization Address [facility] de Phone Number [facility] [place] [address] * (ABNORMAL) eGFR (04/24/2024 7:49 PM SCHOOL ATTENDANCE SECRETARY) Pathologist [facility] eGFR 54(L) >=60 mL/min/1. 73 m2 Comment: Interpretive Data Reference Interval Normal ?>/= 90 mL/min/1.73m2 Mildly decreased* ? 60 - 89 mL/min/1.73m2 Mildly to moderately decreased ?45 - 59 mL/min/1.73m2 Moderately to severely decreased ??30 - 44 mL/min/1.73m2 Severely decreased ?15 - 29 mL/min/1.73m2 Kidney Failure ?< 15 ??mL/min/1.73m2 *Relative to young adult level Estimated glomerular filtration rate is determined by the 2020 CKD-EPI equation recommended by the National Kidney Foundation (A Unifying Approach to GFR Estimation: Recommendations of the NKF-ASK Task Force on Reassessing the Inclusion of Race in Diagnosing Kidney Disease, JASN 2020). The CKD-EPI equation should not be used for patients with unstable renal function and has not been validated in children and those over 70. Current interpretive data was last reviewed 2021. Blood 04/24/2024 7:49 PM SCHOOL ATTENDANCE SECRETARY 04/24/2024 8:39 PM SCHOOL ATTENDANCE SECRETARY us Nena Toledo DITCHING MACHINE ENGINEER LAB BLOOD ORDERABLES Final Re sult [facility] Department of Laboratories [place], [place] [id number] * (ABNORMAL) CBC without differential (04/24/2024 7:49 PM SCHOOL ATTENDANCE SECRETARY) WBC 9.2 3.8 - 9.9 K/cumm Hgb 11.8(L) 13.0 - 17.5 g/dL [facility] Hct 36.2(L) 38.9 - 50.3 % [facility] Plt 220 150 - 400 K/cumm [facility] MPV 9.8 9.1 - 12.3 fL [facility] RBC 3.93(L) 4.30 - 5.80 M/cumm [facility] MCV 92.1 81.3 - 96.4 fL [facility] MCH 30.0 27.1 - 33.3 pg [facility] MCHC 32.6 32.3 - 35.7 g/dL [facility] RDW CV 12.4 11.1 - 14.9 % [facility] RDW SD 42.3 35.7 - 48.1 fL [facility] NRBC abs 0.00 0.00 - 0.01 K/cumm [facility] Blood 04/24/2024 7:49 PM SCHOOL ATTENDANCE SECRETARY 04/24/2024 8:39 PM SCHOOL ATTENDANCE SECRETARY us Nena Toledo DITCHING MACHINE ENGINEER LAB BLOOD ORDERABLES Final Re sult [facility] Department [place] [address] * (ABNORMAL) Basic metabolic panel (04/24/2024 7:49 PM SCHOOL ATTENDANCE SECRETARY) Pathologist [facility] Sodium 137 135 - 145 mmol/L Potassium, pl 4.4 3.3 - 4.9 mmol/L [facility] Chloride 100 97 - 110 mmol/L [facility] CO2 28 22 - 32 mmol/L [facility] Anion gap 9 2 - 15 mmol/L [facility] BUN 18 6 - 25 mg/dL [facility] Creatinine 1.40(H) 0.80 - 1.30 mg/dL [facility] Glucose 148 70 - 199 mg/dL [facility] Comment: Interpretive Data Fasting glucose >/= 126 mg/dl is diagnostic for diabetes. ?? Fasting is defined as no caloric intake for at least 8 hours. Fasting glucose between 100 mg/dl to 125 mg/dl is diagnostic of prediabetes. In a patient with classic symptoms of hyperglycemia or hyperglycemic crisis, a random glucose >/= 200 mg/dl is diagnostic for diabetes. In the absence of unequivocal hyperglycemia, results should be confirmed by repeat testing. The classification and Diagnosis of Diabetes Diabetes Care 2021; 46: S19-S40. Current interpretive data was last revised 2022. Calcium 9.2 8.5 - 10.3 mg/dL [facility] Blood 04/24/2024 7:49 PM SCHOOL ATTENDANCE SECRETARY 04/24/2024 8:39 PM SCHOOL ATTENDANCE SECRETARY Nena Toledo NP LAB BLOOD ORDERABLES Final Re sult Performing Organization Address [facility] Co de Phone Number [facility] [place] [address] * POCT glucose (04/24/2024 7:45 PM SCHOOL ATTENDANCE SECRETARY) Glucose, POC 153 70 - 199 mg/dL Blood 04/24/2024 7:45 PM SCHOOL ATTENDANCE SECRETARY 04/24/2024 7:45 PM SCHOOL ATTENDANCE SECRETARY Zbigniew Noel MD LAB POCT ORDERABLES - DEVICE Final Result Performing Organization Address [facility] de Phone Number [facility] Department [place] [address] * (ABNORMAL) POCT glucose (04/24/2024 4:51 PM SCHOOL ATTENDANCE SECRETARY) Glucose, POC 200(H) 70 - 199 mg/dL Blood 04/24/2024 4:51 PM SCHOOL ATTENDANCE SECRETARY 04/24/2024 4:51 PM SCHOOL ATTENDANCE SECRETARY Zbigniew Noel MD LAB POCT ORDERABLES - DEVICE Final Result Performing Organization Address [facility] de Phone Number [facility] Department [place] [address] * POCT glucose (04/24/2024 12:43 PM SCHOOL ATTENDANCE SECRETARY) Glucose, POC 132 70 - 199 mg/dL Blood 04/24/2024 12:4 3 PM SCHOOL ATTENDANCE SECRETARY 04/24/2024 12:43 PM SCHOOL ATTENDANCE SECRETARY Zbigniew Noel MD LAB POCT ORDERABLES - DEVICE Final Result Performing Organization Address [facility] Co de Phone Number [facility] Department [place] [address] * XR Knee Left 1 or 2 View (04/24/2024 9:44 AM SCHOOL ATTENDANCE SECRETARY) Anatomical Region Laterality Modality Lower Extremities, Knee Left Computed Radiography 04/24/2024 9:46 AM SCHOOL ATTENDANCE SECRETARY Impressions 04/24/2024 9:46 AM SCHOOL ATTENDANCE SECRETARY 1. New two component left knee arthroplasty for osteoarthritis. Electronically signed by: Eliecer Huang M.D. Narrative 04/24/2024 9:46 AM SCHOOL ATTENDANCE SECRETARY EXAMINATION: XR KNEE LEFT 1 OR 2 VIEWS HISTORY: Left knee osteoarthritis COMPARISON: 02/18/2024 FINDINGS: Two view examination of the left knee is performed. There is a new two component knee arthroplasty in expected position. There is postoperative soft tissue gas and swelling. No fracture is present. Procedure Note Eliecer Huang MD - 04/24/2024 EXAMINATION: XR KNEE LEFT 1 OR 2 VIEWS HISTORY: Left knee osteoarthritis COMPARISON: 02/18/2024 FINDINGS: Two view examination of the left knee is performed. There is a new two component knee arthroplasty in expected position. There is postoperative soft tissue gas and swelling. No fracture is present. IMPRESSION: 1. New two component left knee arthroplasty for osteoarthritis. Electronically signed by: Eliecer Huang M.D. us Nellie Avina MD IMG XR PROCEDURES Final Re sult * POCT glucose (04/24/2024 9:34 AM SCHOOL ATTENDANCE SECRETARY) [facility] Signature Glucose, POC 110 70 - 199 mg/dL Blood 04/24/2024 9:34 AM SCHOOL ATTENDANCE SECRETARY 04/24/2024 9:34 AM SCHOOL ATTENDANCE SECRETARY us Zbigniew Noel MD LAB POCT ORDERABLES - DEVICE Final Result [facility] Department [place] [address] * POCT glucose (04/24/2024 8:29 AM SCHOOL ATTENDANCE SECRETARY) Glucose, POC 101 70 - 199 mg/dL Blood 04/24/2024 8:29 AM SCHOOL ATTENDANCE SECRETARY 04/24/2024 8:29 AM SCHOOL ATTENDANCE SECRETARY Zbigniew Noel MD LAB POCT ORDERABLES - DEVICE Final Result Performing Organization Address City/State/ZIP Co mt Phone Number [facility] Department [place] [address] * AL AN PROCEDURE PLACEHOLDER (04/24/2024 7:36 AM SCHOOL ATTENDANCE SECRETARY) Narrative Candy Moncada MD - 04/24/2024 7:36 AM SCHOOL ATTENDANCE SECRETARY Ilsa Bishop MD ? 04/24/2024 ??7:37 AM Peripheral Block Patient location during procedure: pre-op holding Reason for block: post-op pain management per surgeon request Block type: single shot Laterality: left Block type: IPACK Staff: Supervising provider: Candy Moncada MD Placed by: Resident: Ilsa Bishop MD Procedure prep: Preprocedure checklist: patient identified, procedure contraindications assessed, site marked, procedure consent, surgical consent, IV checked, risks, benefits and alternatives discussed, monitors and equipment checked and timeout performed Patient position: supine Procedure performed while patient: sedate with meaningful contact Monitoring: ECG, oximetry and blood pressure Supplemental O2: nasal cannula Prep solution: chlorhexidine/alcohol PPE: provider hat/mask, sterile gloves and sterile probe cover and gel Peripheral nerve block: Technique: ultrasound guided Needle type: echogenic Needle gauge: 22 G Needle length: 80 mm Injection assessment: injection made incrementally with constant monitoring, local visualized surrounding nerve on ultrasound, negative aspiration for heme, no paresthesias noted, normal resistance to injection and see flowsheet for medication details Assessment: Block success: full evaluation pending Events: patient tolerated procedure well with no complications Result [facility] Ilsa Bishop MD ANESTHESIA ORDERABLES Lilia l Result * AL AN PROCEDURE PLACEHOLDER (04/24/2024 7:35 AM SCHOOL ATTENDANCE SECRETARY) Candy Liriano MD - 04/24/2024 7:35 AM SCHOOL ATTENDANCE SECRETARY Ilsa Bishop MD ? 04/24/2024 ??7:36 AM Peripheral Block Patient location during procedure: pre-op holding Reason for block: post-op pain management per surgeon request Ultrasound image in chart or stored: yes Block type: single shot Laterality: left Block type: saphenous nerve block - subsartorial approach Staff: Supervising provider: Candy Moncada MD Placed by: Resident: Ilsa Bishop MD Procedure prep: Preprocedure checklist: patient identified, procedure contraindications assessed, site marked, procedure consent, surgical consent, IV checked, risks, benefits and alternatives discussed, monitors and equipment checked and timeout performed Patient position: supine Procedure performed while patient: sedate with meaningful contact Monitoring: ECG, oximetry and blood pressure Supplemental O2: nasal cannula Prep solution: chlorhexidine/alcohol PPE: provider hat/mask, sterile gloves and sterile probe cover and gel Peripheral nerve block: Technique: ultrasound guided Needle type: insulated and short-bevel Needle gauge: 20 G Needle length: 100 mm Injection assessment: injection made incrementally with constant monitoring, local visualized surrounding nerve on ultrasound, negative aspiration for heme, no paresthesias noted, normal resistance to injection and see flowsheet for medication details Assessment: Block success: full evaluation pending Events: patient tolerated procedure well with no complications Ilsa Bishop MD ANESTHESIA ORDERABLES Lilia l Result * Spinal Block (04/24/2024 7:19 AM SCHOOL ATTENDANCE SECRETARY) Narrative Navneet Salgado MD - 04/24/2024 7:19 AM SCHOOL ATTENDANCE SECRETARY Navneet Salgado MD ? 04/24/2024 ??7:20 AM Spinal Block Patient location: pre-op holding End time: 04/24/2024 7:14 AM Reason for block: post-op pain management per surgeon request Staff: Supervising provider: David Newsome MD Placed by: Resident: Navneet Salgado MD Procedure prep: Preprocedure checklist: patient identified, procedure contraindications assessed, site marked, procedure consent, surgical consent, IV checked, risks, benefits and alternatives discussed, monitors and equipment checked and timeout performed Patient position: sitting Procedure performed while patient: awake Monitoring: ECG, oximetry and blood pressure Supplemental O2: nasal cannula Prep solution: chlorhexadine/alcohol PPE: provider hat/mask, sterile gloves and sterile drape Skin infiltrated with lidocaine 1%: yes Spinal: Approach: midline Introducer used: yes Location: L3-4 Spinal injection: CSF demonstrated, no aspiration of heme and no paresthesias noted Number of attempts: 1 Spinal Needle: Needle type: pencil-tip Needle gauge: 27 G Needle length: 9 cm Assessment: Sensory deficit - left: T8 Sensory deficit - right: T8 Events: patient tolerated procedure well with no complications Additional comments: Patient vitals monitored. Phenylephrine infusion at bedside if necessary. Navneet Salgado MD ANESTHESIA ORDERABLES Edited Re sult - Final * POCT glucose (04/24/2024 6:17 AM SCHOOL ATTENDANCE SECRETARY) Glucose, POC 122 70 - 199 mg/dL Blood 04/24/2024 6:17 AM SCHOOL ATTENDANCE SECRETARY 04/24/2024 6:17 AM SCHOOL ATTENDANCE SECRETARY Zbigniew Noel MD LAB POCT ORDERABLES - DEVICE Final Result Performing Organization Address [facility] de Phone Number [facility] Department [place] [address] * Protime-INR (04/24/2024 6:14 AM SCHOOL ATTENDANCE SECRETARY) PT 12.7 9.7 - 13.0 sec INR 1.17 0.90 - 1.20 [facility] Comment: Interpretive data Oral anticoagulant therapeutic ranges: Venous thromboembolism prophylaxis or treatment: 2.0-3.0 CARDIOLOGY Standard range: 2.0-3.0 High-intensity range: 2.5-3.5 Refer to indication-specific guidelines for appropriate target ranges for prosthetic heart valve replacement. Current interpretive data was last revised on 2019. Blood 04/24/2024 6:14 AM SCHOOL ATTENDANCE SECRETARY 04/24/2024 6:32 AM SCHOOL ATTENDANCE SECRETARY Navneet Salgado MD LAB BLOOD ORDERABLES Final Resu lt Performing Organization Address City/[facility] Co de Phone Number [facility] Department [place] [address] * DEVICE CHECK - REMOTE (04/12/2024 3:15 AM CDT) Anatomical Region Laterality Modality Other 04/12/2024 3:15 AM CDT Narrative 04/17/2024 4:08 PM SCHOOL ATTENDANCE SECRETARY Interpretation Summary: Battery and Leads (BL) Normal parameters noted on battery and lead(s) --- 35% remaining longevity (implanted 2014). ?Lead impedance, sensing, and threshold trends stable and appropriate. Presenting Rhythm (AL) [place] Oversensing noted on presenting rhythm Atrial Pacing-Ventricular Sensing (AP-VS) --- AP/VS 70 bpm with FFOS. Arrhythmic events (AE) No new arrhythmic events in monitoring period --- Since 03/13/24: ?No AHR or VHR episodes. Anticoagulation ??(AC) Patient is not on anticoagulant therapy Anticoagulation is not clinically indicated Transmission Information (TI) Device Summary Report Follow Up (FU) Patient's primary treating physician will be apprised of findings Procedure Note Maty Weber MD - 04/17/2024 Interpretation Summary: Battery and Leads (BL) Normal parameters noted on battery and lead(s) --- 35% remaining longevity(implanted 2014). Lead impedance, sensing, and threshold trends stableand appropriate. Presenting Rhythm (AL) [place] Oversensing noted on presenting rhythm Atrial Pacing-Ventricular Sensing (AP-VS) --- AP/VS 70 bpm with FFOS. Arrhythmic events (AE) No new arrhythmic events in monitoring period --- Since 03/13/24: No AHRor VHR episodes. Anticoagulation (AC) Patient is not on anticoagulant therapy Anticoagulation is not clinically indicated Transmission Information (TI) Device Summary Report Follow Up (FU) Patient's primary treating physician will be apprised of findings Maty Weber MD [facility] PROCEDURES Final Result * (ABNORMAL) POCT hemoglobin A1c (03/27/2024 2:16 PM CDT) Hgb A1C, POC 5.9(H) 4.0 - 5.6 % Est Average Gluc POC 123 mg/dL [facility] Comment: The ADA recommends reporting an estimated Average Glucose (eAG) with all Hemoglobin A1c results using the equation derived from a study of 507 normal and diabetic adults. ??Minority populations were underrepresented and children were not included. ?? (Diabetes Care 31:8355-2334, 2008). ??The eAG is not equivalent to a fasting glucose. Blood 03/27/2024 2:16 PM CDT 03/27/2024 2:16 PM CDT us Zbigniew Noel MD POINT OF CARE TEST O RDERABLES Final Result [facility] Department [place] [address] * CTA Abdominal Aorta And Bilateral Iliofemoral Runoff (09/27/2023 11:27 AM CDT) Anatomical Region Laterality Modality Body Bilateral Computed Tomogra phy 09/27/2023 12:3 1 PM CDT Impressions 09/27/2023 4:16 PM CDT 1. ??Right lower extremity: Predominantly moderate multifocal stenosis with 3 vessel supply to the right foot. 2. ??Left lower extremity: Moderate multifocal stenosis with severe focal stenosis of the left popliteal artery and 3 vessel supply to the left foot. Dictated by: Andrea Vidal M.D. The radiology attending physician has personally reviewed this study, and had reviewed and/or edited this written report and agrees with it. Electronically signed by: Taiwo Jones M.D. Narrative 09/27/2023 4:16 PM CDT EXAMINATION: ??CT ANGIOGRAPHY OF THE ABDOMEN, PELVIS, AND LOWER EXTREMITIES WITH CONTRAST HISTORY: Claudication TECHNIQUE: CT angiography of the abdomen, pelvis, and lower extremities was performed following the uneventful intravenous administration of 114 ml Optiray-350. Vascular 3D images were generated on a dedicated workstation and also reviewed. COMPARISON: 03/29/2020 FINDINGS: VASCULAR FINDINGS: Abdominal Aorta and Branches: Celiac axis: no significant stenosis SMA: no significant stenosis RITIKA: no significant stenosis Right renal vessels: Mild stenosis at the origin of the right renal artery Left renal vessels: Mild stenosis of the origin of the left renal artery Infrarenal aorta: no significant stenosis. No aneurysm. Pelvic Vessels: R. Common iliac artery: ??Patent stent. ??Mild distal stenosis R. External iliac artery: ??Mild stenosis with superimposed focal moderate stenosis in the mid segment. R. Internal iliac artery: ??Mild to moderate multifocal stenosis L. Common iliac artery: ??Moderate focal stenosis proximally with mild in-stent stenosis L. External iliac artery: ??Mild stenosis with patent mid segment stent L. Internal iliac artery: ??Severe multifocal stenosis Right Lower Extremity: R. Common femoral artery: ??Mild stenosis R. Profunda femoris artery: ??no significant stenosis R. Superficial femoral artery: ??Moderate distal stenosis. R. Popliteal artery: ??Moderate stenosis in the proximal and mid segments R. Anterior tibial artery: ??Moderate multifocal stenosis R. Tibioperoneal trunk: ??Moderate stenosis R. Posterior tibial artery: ??Severe proximal stenosis with multifocal mild stenosis R. Peroneal artery: ??Severe proximal stenosis R. Dorsalis pedis artery: ??Patent R. Plantar artery: ??Patent Left Lower Extremity: L. Common femoral artery: ??Mild stenosis L. Profunda femoris artery: ??no significant stenosis L. Superficial femoral artery: ??Moderate distal stenosis L. Popliteal artery: ??Moderate multifocal stenosis with focal severe stenosis with nonocclusive thrombus just posterior to the knee. L. Anterior tibial artery: ??Mild multifocal stenosis L. Tibioperoneal trunk: ??Moderate stenosis L. Posterior tibial artery: ??Mild proximal stenosis L. Peroneal artery: ??no significant stenosis L. Dorsalis pedis artery: ??no significant stenosis L. Plantar artery: ??no significant stenosis NON-VASCULAR FINDINGS: Please see same-day CT chest for evaluation of the lung bases. ??No pleural effusion. ??Heart size within normal limits. ??No pericardial effusion. ??Diffuse hepatic steatosis. ??No suspicious hepatic lesion. ??No biliary dilatation. ??Gallbladder, spleen, pancreas, and adrenal glands are normal. ??Renal parenchyma enhance symmetrically. ??No renal stone or hydronephrosis. ??Urinary bladder is decompressed. ??Scattered colonic diverticulosis without diverticulitis. ??Small duodenal diverticulum. ??Small hiatal hernia. No free fluid or free intra-abdominal air. ??No abdominal or pelvic lymphadenopathy. ??No suspicious osseous lesion. ??Small left pleural effusion. ??Metallic pin in the right foot 2nd digit metatarsal head. Right foot metatarsophalangeal joint arthrodesis. Procedure Note Taiwo Jones MD - 09/27/2023 EXAMINATION: CT ANGIOGRAPHY OF THE ABDOMEN, PELVIS, AND LOWER EXTREMITIES WITH CONTRAST HISTORY: Claudication TECHNIQUE: CT angiography of the abdomen, pelvis, and lower extremities was performed following the uneventful intravenous administration of 114 ml Optiray-350. Vascular 3D images were generated on a dedicated workstation and also reviewed. COMPARISON: 03/29/2020 FINDINGS: VASCULAR FINDINGS: Abdominal Aorta and Branches: Celiac axis: no significant stenosis SMA: no significant stenosis RITIKA: no significant stenosis Right renal vessels: Mild stenosis at the origin of the right renal artery Left renal vessels: Mild stenosis of the origin of the left renal artery Infrarenal aorta: no significant stenosis. No aneurysm. Pelvic Vessels: R. Common iliac artery: Patent stent. Mild distal stenosis R. External iliac artery: Mild stenosis with superimposed focal moderate stenosis in the mid segment. R. Internal iliac artery: Mild to moderate multifocal stenosis L. Common iliac artery: Moderate focal stenosis proximally with mild in-stent stenosis L. External iliac artery: Mild stenosis with patent mid segment stent L. Internal iliac artery: Severe multifocal stenosis Right Lower Extremity: R. Common femoral artery: Mild stenosis R. Profunda femoris artery: no significant stenosis R. Superficial femoral artery: Moderate distal stenosis. R. Popliteal artery: Moderate stenosis in the proximal and mid segments R. Anterior tibial artery: Moderate multifocal stenosis R. Tibioperoneal trunk: Moderate stenosis R. Posterior tibial artery: Severe proximal stenosis with multifocal mild stenosis R. Peroneal artery: Severe proximal stenosis R. Dorsalis pedis artery: Patent R. Plantar artery: Patent Left Lower Extremity: L. Common femoral artery: Mild stenosis L. Profunda femoris artery: no significant stenosis L. Superficial femoral artery: Moderate distal stenosis L. Popliteal artery: Moderate multifocal stenosis with focal severe stenosis with nonocclusive thrombus just posterior to the knee. L. Anterior tibial artery: Mild multifocal stenosis L. Tibioperoneal trunk: Moderate stenosis L. Posterior tibial artery: Mild proximal stenosis L. Peroneal artery: no significant stenosis L. Dorsalis pedis artery: no significant stenosis L. Plantar artery: no significant stenosis NON-VASCULAR FINDINGS: Please see same-day CT chest for evaluation of the lung bases. No pleural effusion. Heart size within normal limits. No pericardial effusion. Diffuse hepatic steatosis. No suspicious hepatic lesion. No biliary dilatation. Gallbladder, spleen, pancreas, and adrenal glands are normal. Renal parenchyma enhance symmetrically. No renal stone or hydronephrosis. Urinary bladder is decompressed. Scattered colonic diverticulosis without diverticulitis. Small duodenal diverticulum. Small hiatal hernia. No free fluid or free intra-abdominal air. No abdominal or pelvic lymphadenopathy. No suspicious osseous lesion. Small left pleural effusion. Metallic pin in the right foot 2nd digit metatarsal head. Right foot metatarsophalangeal joint arthrodesis. IMPRESSION: 1. Right lower extremity: Predominantly moderate multifocal stenosis with 3 vessel supply to the right foot. 2. Left lower extremity: Moderate multifocal stenosis with severe focal stenosis of the left popliteal artery and 3 vessel supply to the left foot. Dictated by: Andrea Vidal M.D. The radiology attending physician has personally reviewed this study, and had reviewed and/or edited this written report and agrees with it. Electronically signed by: Taiwo Jones M.D. Leonidas Carroll MD IMG CT PROCEDURES Lilia l Result * POCT lipid panel (09/21/2023 9:27 AM CDT) Pathologist [facility] Cholesterol, POC <100 mg/dL Triglycerides, POC 214 mg/dL Capillary blood 09/21/2023 9 :27 AM CDT Perry Romero MD POINT OF CARE TEST ORDERABLES Final Result * PSA screen (06/17/2023 10:13 AM SCHOOL ATTENDANCE SECRETARY) Pathologist [facility] PSA 0.4 0.0 - 4.0 ng/mL [facility] - 01 Comment: Shahbaz ECLIA methodology. According to the [place] [employer], Serum PSA should decrease and remain at undetectable levels after radical prostatectomy. The AUA defines biochemical recurrence as an initial PSA value 0.2 ng/mL or greater followed by a subsequent confirmatory PSA value 0.2 ng/mL or greater. Values obtained with different assay methods or kits cannot be used interchangeably. Results cannot be interpreted as absolute evidence of the presence or absence of malignant disease. Blood 06/17/2023 10:1 3 AM SCHOOL ATTENDANCE SECRETARY 06/17/2023 Narrative [facility] - 06/18/2023 6:11 AM SCHOOL ATTENDANCE SECRETARY Performed at: ??01 - [facility] [address] ??[id number] Rivet Bucker: Edgar Menard PhD, Phone: ??[phone] Mamie Rose NP LAB BLOOD ORDERABLES Fin al Result [facility] - * COLONOSCOPY (01/01/2021 12:16 PM CDT) Anatomical Region Laterality Modality Other Narrative Procedure Note Emily Zeng MD - 01/01/2021 12:16 PM CDT [facility] Patient Name: Vicky Youssef Procedure Date: 01/01/2021 12:16 PM Date of : 1955 Admit Type: Outpatient Age: 65 Gender: Male Attending MD: Huy Reed Room: [facility] ENDOSCOPY ROOM 3 Note Status: Finalized Procedure: Colonoscopy Indications: Screening for colorectal malignant neoplasm, Last colonoscopy: date unknown. Per patient, last colonoscopy was 7 years ago. Referring MD: Perry Romero M.D. Providers: Emily Zeng M.D. Medicines: Monitored Anesthesia Care Complications: No immediate complications. Estimated Blood Loss: Estimated blood loss was minimal. Procedure: Pre-Anesthesia Assessment: - Prior to the procedure, a History and Physicalwas performed, and patient medications, allergies and sensitivities were reviewed. The patient'stolerance of previous anesthesia was reviewed. - Immediately prior to administration ofmedications, the patient was re-assessed for adequacy to receive sedatives. - The risks and benefits of the procedure and the sedation options and risks were discussed with the patient. All questions were answered and informed consent was obtained. The benefits, risks and alternatives of theprocedure and sedation were discussed and informed consentwas obtained. All questions were answered. Please referto the signed informed consent document in the medical record. The scope was passed under direct vision.The CF HQ 190L [id number] endoscope was introducedthrough the anus and advanced to the cecum, identified by appendiceal orifice and ileocecal valve. The colonoscopy was performed without difficulty. The patient tolerated the procedure well. The qualityof the bowel preparation was evaluated using the BBPS (Kelliher Bowel Preparation Scale) with scores of:Right Colon = 3 (entire mucosa seen well with no residual staining, small fragments of stool or opaqueliquid), Transverse Colon = 2 (minor amount of residual staining, small fragments of stool and/or opaque liquid, but mucosa seen well) and Left Colon = 2 (minor amount of residual staining, small fragmentsof stool and/or opaque liquid, but mucosa seen well).The total BBPS score equals 7. The bowel preparationused was GoLYTELY via split dose instruction. Thequality of the bowel preparation was adequate. Findings: The perianal and digital rectal examinations were normal. Non-bleeding internal hemorrhoids were found during retroflexion. The hemorrhoids were small. A 9 mm polyp was found in the rectum. The polyp was sessile. Thepolyp was removed with a cold snare. Resection and retrieval werecomplete. Multiple small-mouthed diverticula were found in the sigmoid colon. The exam was otherwise without abnormality. Impression: - Non-bleeding internal hemorrhoids. - One 9 mm polyp in the rectum, removed with a cold snare. Resected and retrieved. - Diverticulosis in the sigmoid colon. - The examination was otherwise normal. Recommendation: - Discharge patient to home. - Await pathology results. - Resume Plavix (clopidogrel) at prior dosetomorrow. - Repeat colonoscopy in 5-10 years for surveillance based on pathology results. - Return to referring physician as previously scheduled. - A polyp or polyps were removed during your colonoscopy today. After the pathology result ofthe polyp(s)? ? ?is reviewed, the doctor who performedyour colonoscopy will recommend follow-up colonoscopy to you based on current guidelines by gastroenterology societies: - If only small hyperplastic polyps from the rectumor sigmoid were removed, repeat the colonoscopy in 10 years. - If 1 or 2? ? ?polyps less than 1 cm in size are adenomas, repeat the colonoscopy in 5 years. - If 3 or more polyps are adenomas, repeat the colonoscopy in 3 years. - If there are 10 or more adenomas, repeat the colonoscopy in 1 year. - If any polyp is 10 mm or greater in size, has villous histology or high grade dysplasia,repeat? ? ?the colonoscopy in 3 years. - If a polyp greater than 2 cm was removed with a piecemeal technique, repeat the colonoscopy in 6 months to be certain that there is no residualpolyp. - Sessile serrated polyps are treated like adenomas for surveillance purposes. Attending Participation: I personally performed the entire procedure. Electronically signed by Emily Zeng MD Emily Zeng M.D. 01/01/2021 12:50:05 PM . Number of Addenda: 0 Note Initiated On: 01/01/2021 12:16 PM Recognized by the [place] [employer] for promoting quality in endoscopy Emily Zeng MD ENDOSCOPY PROCEDUR ES Final Result from Last 3 Months or Most Recently Relevant to Health Maintenance Insurance MEDICARE [facility] MEDICARE SUPPLEMENT [facility]ICARE [facility] MEDICARE [employer] MEDICARE SUPPLEMENT [facility] MEDICARE SUPPLEMENT MEDICARE BLUE [facility] [place] [facility] MEDICARE SUPPLEMENT Advance Directives For more information, please contact: [phone] * Full Code (Latest Code Status on File) Date Activated Date Inactivated Comments 04/24/2024 12:39 PM 04/25/2024 5:09 PM * Full Code Date Activated Date Inactivated Comments 11/25/2022 3:28 PM 11/25/2022 10:23 PM * Full Code Date Activated Date Inactivated Comments 07/18/2021 7:28 PM 07/21/2021 8:26 PM * Full Code Date Activated Date Inactivated Comments 05/01/2021 4:34 PM 05/02/2021 4:45 PM * Full Code Date Activated Date Inactivated Comments 01/01/2021 11:59 AM 01/01/2021 5:28 PM Care Teams It Associate Relationship Specialty Start Date End Date Perry Romero MD [address] [facility] [address] [address] PCP - General Internal Medicine 02/23/20 Leonidas Carroll MD Business Development Cardiology 05/23/19 Love Jones, PT Physical Therapist Physical Therapy 09/28/22 Arthur Bateman MD [address] [address] Referring Physician Anesthesiology 09/28/22 Karl Cha MD [facility] [place] [facility] [address] [place] [id number] Referring Physician Orthopedic Surgery 11/24/23
--- OUTSIDE RECORDS SUMMARY | 2024-07-06 14:55 | XMS_ITS | Encounter Summary ---
Author Organization [facility] Healthcare Address [address] [place] [address] Care Team Providers Care Metal Polisher And Buffer Apprentice Name Role Phone Deacon Eisenberg DO Primary Care Provider [phone] Leonidas Carroll MD Unavailable [phone] Perry Romero MD Primary Care Provider Love Jones PT Unavailable Unavailab Arthur Law MD Unavailable Karl Cha MD Unavailable [phone] Encounter Details Date Type Department Care Team (Late st Contact Info) Description 06/03/2019 Documentation [facility] Case Management [address] [place] [address] Shahram Baxter, RN Social History Tobacco Use Types Packs/Day Years Used Date Smoking Tobacco: Former Cigarettes 1 28 1 975 - 2002 Smokeless Tobacco: Never Alcohol Use Standard Drinks/Week Comments Not Currently 0 (1 standard drink = 0.6 oz pur e alcohol) Sex and Gender Information Value Date Recorded Sex Assigned at Not on file Legal Sex Male 11:34 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 However, notified by Cata, patient arranged discharge transportaion and Left for discharge prior to Equity Structurer pravin greene Please call the Weekend Equity Structurer @ [phone] if additional assistance needed. ITY CONTROL ASSISTANT documented in this encounter Plan of Treatment Not on file documented as of this encounter Visit Diagnoses Not on filedocumented in this encounter Care Teams Metal Polisher And Buffer Apprentice Relationship Specialty Start Date End Date Deacon Eisenberg DO PCP - General 11/22/18 02/22/20 Perry Romero MD [address] [place] [facility] [address] [place] [address] PCP - General Internal Medicine 02/23/20 Leonidas Carroll MD Dog Pound Attendant Cardiology 05/23/19 Love Jones, PT Physical Therapist Physical Therapy 09/28/22 Arthur Bateman MD [address] [employer] [facility] [address] [place] [address] Referring Physician Anesthesiology 09/28/22 Karl Cha MD [facility] [place] [address] Referring Physician Orthopedic Surgery 11/24/23 documented as of this encounter
--- OUTSIDE RECORDS SUMMARY | 2024-07-06 14:55 | XMS_ITS | Clinical Summary ---
Author Organization [facility] Address [address] [place] [address] Care Team Providers Care Sales Professional Name Role Phone Leonidas Carroll MD Unavailable [phone] Perry Romero MD Primary Care Provider [phone] Love Jones PT Unavailable Unavailab Arthur Law MD Unavailable Karl Cha MD Unavailable [phone] Allergies Active Allergy Reactions Criticality Noted Date Comments Ikqyxoy-Veq-Lwk Reductase Inhibitors Other (See comments) Low 05/03/2024 [...] BY MOUTH EVERY NIGHT 90 tablet 3 024 Active amLODIPine (NORVASC) 2.5 mg tablet TAKE 1 TABLET(2.5 MG) BY MOUTH DAILY 90 tablet 3 024 Active lisinopriL (PRINIVIL,ZESTRIL) 10 mg tablet Take 1 tablet (10 mg total) by mouth daily 30 tablet 11 024 2024 Active metFORMIN (GLUCOPHAGE) 1,000 mg tablet TAKE 1 TABLET(1000 MG) BY MOUTH DAILY WITH BREAKFAST 90 tablet 3 024 Active busPIRone (BUSPAR) 30 mg tablet Take 1 tablet (30 mg total) by mouth 2 (two) times a day Active nitroglycerin (NITROSTAT) 0.[address] 1 tablet (0.4 mg total) under the tongue every 5 (five) minutes as needed for chest pain May repeat dose q 5 min, up to 3 doses total 25 tablet 3 024 2024 Active aspirin 81 mg chewable tablet Take 1 tablet (81 mg total) by mouth daily 30 tablet 11 024 2024 Active clopidogreL (PLAVIX) 75 mg tablet Take 1 tablet (75 mg total) by mouth daily Active oxyCODONE (ROXICODONE) 5 mg immediate release tabletIndications:P ain Take 1 tablet (5 mg total) by mouth every 4 (four) hours as needed for pain (Breakthroug h Pain) 30 tablet 024 Active meloxicam (MOBIC) 7.5 mg tabletIndications:P ain Take 1 tablet (7.5 mg total) by mouth daily 30 tablet 024 Active acetaminophen 500 mg capsuleIndications: Pain Take 2 capsules (1,000 mg total) by mouth every 8 (eight) hours 90 tablet 024 Active senna-docusate (PERICOLACE) 8.6-50 mgIndications:const ipation Take 2 tablets by mouth 2 (two) times a day 60 tablet 024 Active traMADoL (ULTRAM) 50 mg tabletIndications:E ncounter for other specified surgical aftercare Take 1 tablet (50 mg total) by mouth every 6 (six) hours as needed for pain 30 tablet [address] (PROTONIX) 40 mg EC tablet TAKE 1 TABLET(40 MG) BY MOUTH DAILY 90 tablet 2 024 Active finasteride (PROSCAR) 5 mg tabletIndications:b enign prostatic hyperplasia with lower urinary tract sx Take 1 tablet (5 mg total) by mouth engineering agent before breakfast 90 tablet 3 025 Active [...] 06/17/2023 Assessment & Plan (06/17/2023 10:00 AM GREENHOUSE [employer]ORIST): Continue flexeril 10mg Q8 PRN Trial gabapentin 100mg Q8 TID Topical lidocaine patches 4%, on for 12 hours/off for 12 hours Will send [place] 5/325 PRN #28, discussed that this will [...] 07/21/2021 Assessment & Plan (07/21/2021 9:52 AM GREENHOUSE FLORIST): Baseline creatine 1.3-1.5 Creatine Within patient;s baseline at 1.3 CTM Received IV fluids 500 ml on admission for creatine 1.59 Statin intolerance 07/18/2021 Assessment & Plan (07/18/2021 3:39 PM GREENHOUSE FLORIST): History of statin intolerance -Continue ezetimibe and fenofibrate DM2 (diabetes mellitus, type 2) 07/18/2021 Assessment & Plan (07/19/2021 7:58 AM GREENHOUSE FLORIST): Follow glucose and rx with insulin Metformin held for now pending cath. Assessment & Plan (07/18/2021 3:41 PM GREENHOUSE FLORIST): -Hemoglobin A1c 6.1 -Hold home metformin while inpatient -SSI while admitted -Carb consistent diet -Accuchecks BPH (benign prostatic hyperplasia) 07/18/2021 Assessment & Plan (07/18/2021 3:59 PM GREENHOUSE FLORIST): BPH s/p TURP -Continue home finasteride and tamsulosin HLD (hyperlipidemia) 07/18/2021 Assessment & Plan (07/21/2021 8:10 AM GREENHOUSE FLORIST): LDL ok while on non-statins due to intolerance. Continue present Rx for now Assessment & Plan (07/20/2021 8:10 AM GREENHOUSE FLORIST): LDL ok while on non-statins due to intolerance. Continue present Rx for now Assessment & Plan (07/19/2021 7:57 AM GREENHOUSE FLORIST): LDL ok while on non-statins due to intolerance. Continue present Rx for now Assessment & Plan (07/18/2021 3:52 PM GREENHOUSE FLORIST): Lipid panel WNL -Continue ezetimibe and fenofibrate PAD (peripheral artery disease) 07/18/2021 PVOD (pulmonary veno-occlusive disease) 07/18/19 Assessment & Plan (07/18/2021 4:00 PM GREENHOUSE FLORIST): PVOD s/p bilateral iliac stents Unstable angina (CMS/HCC) 07/18/2021 Overview (07/18/2021): Added automatically from request for surgery [id number] Assessment & Plan (07/21/2021 8:10 AM GREENHOUSE FLORIST): CP concerning for USA. troponins normal, ruled out for OR. I have recommended coronary angiography and this is scheduled for today. Pt has PAD Continue IV heparin, follow labs and adjust. Continue aspirin, plavix, beta carrie, Patient asymptomatic. Cardiac catheterization scheduled for tomorrow. NPO after midnight. Assessment & Plan (07/20/2021 8:10 AM GREENHOUSE FLORIST): CP concerning for USA. troponins normal, ruled out for OR. I have recommended coronary angiography and this is scheduled for Wednesday. Pt has PAD and radial approach may be preferred. Continue IV heparin, follow labs and adjust. Continue aspirin, plavix, beta carrie, Patient asymptomatic. Cardiac catheterization scheduled for tomorrow. NPO after midnight. Assessment & Plan (07/19/2021 7:56 AM GREENHOUSE FLORIST): CP concerning for USA. troponins normal, ruled out for OR. Brief left sided chest pain since admission. [...] (03/06/2021): Added automatically from request for surgery [id number] Presbyopia 02/03/2021 Assessment & Plan (08/12/2023 5:06 PM GREENHOUSE FLORIST): -Noting increased difficulty with near vision while reading -Recommended trialing higher power reading glasses Assessment & Plan (02/03/2021 2:44 PM CDT): Correctable to 20/25 right eye (OD) and left eye (OS). Update specs as desired. Rosacea 09/18/2020 Metatarsalgia of right foot 07/04/2020 Overview (07/04/2020): Added automatically from request for surgery [id number] Sesamoiditis 07/04/2020 Overview (07/04/2020): Added automatically from request for surgery [id number] Painful orthopaedic hardware 07/04/2020 Overview (07/04/2020): Added automatically from request for surgery [id number] Achilles tendon contracture, right 07/04/2020 Overview (07/04/2020): Added automatically from request for surgery [id number] Pseudarthrosis after fusion or arthrodesis 02/28 Overview (02/28/2019): Added automatically from request for surgery [id number] Diabetes mellitus type 2 without retinopathy (CM S/HCC) 02/23/2019 Assessment & Plan (02/09/2023 3:33 PM CDT): Continue strict BS control, annual dilated eye exams. Assessment & Plan (06/17/2022 4:09 PM GREENHOUSE FLORIST): Continue strict BS control, annual dilated eye [...] months Assessment & Plan (08/12/2023 5:05 PM GREENHOUSE FLORIST): -Follow up exam for AMD; last visit [...] 6months Assessment & Plan (06/17/2022 9:41 AM GREENHOUSE FLORIST): -No signs of exudation. -given the large [...] months Assessment & Plan (08/13/2021 3:12 PM GREENHOUSE FLORIST): No signs of exudation. Per AREDS study, [...] 2018 Assessment & Plan (06/17/2022 4:09 PM GREENHOUSE FLORIST): NVS, follow. Assessment & Plan (02/23/2019 10:32 [...] (06/08/2018): Added automatically from request for surgery [id number] Palpitations 04/15/2018 CAD (coronary artery disease) 03/08/2018 Assessment & Plan (07/18/2021 3:42 PM GREENHOUSE FLORIST): CAD s/p CABG in 2010 (KAUR-LAD which is known to be an atretic graft; vein graft-marginal; and vein graft-2nd marginal branch; RCA occluded, with collateral revascularization) -Last [facility] in 11/2018 showed patent KAUR graft to [...] Diabetes mellitus type II, non insulin dependent ([facility]) 01/15/2018 Assessment & Plan (07/21/2021 9:50 AM GREENHOUSE FLORIST): Hemoglobin a1c 6.1 - diet controlled for now Metformin on hold for [facility] Continue to monitor. Assessment & Plan (07/20/2021 8:11 AM GREENHOUSE FLORIST): Blood sugar stable. Follow-up blood sugar. Treat with insulin as appropriate Metformin being held. Assessment & Plan (02/28/2020 3:23 PM CDT): a1c at target, recommend annual eye exam. Feet are without lesions. Assessment & Plan (11/22/2018 4:43 PM CDT): On metformin 1000mg BID at home -LDSSI Assessment & Plan (11/14/2018 1:46 PM CDT): No WIRE MESH FILTER FABRICATOR Last A1C was 01/2018 but at goal at 6.0% C/w medical management, control BP Annual DFE Assessment & Plan (01/15/2018 4:51 AM CDT): Check A1c. Hold metformin. Low-dose sliding scale. Myocardial infarction 09/09/2017 Nonsustained ventricular tachycardia ([facility]) 0 09/15/2016 Assessment & Plan (07/18/2021 4:06 PM GRE[employer]HOUSE [employer]IST): -Continue metoprolol XL -Telemetry Assessment & Plan [...] 05/13/2015 Assessment & Plan (07/21/2021 8:10 AM GREENHOUSE FLORIST): Pacer function stable Continue present Rx. Continue beta-carrie. Assessment & Plan (07/20/2021 8:10 AM GREENHOUSE FLORIST): Pacer function stable Continue present Rx. Continue beta-carrie. 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 Maty Weber Assessment & Plan (02/28/2020 3:23 PM CDT): No palpitations, syncope Depressive disorder 03/15/2015 Panic disorder without agoraphobia 03/15/2015 Resolved Problems Problem Noted Date Diagnosed Date Resolved Date Pain in right foot 04/24/2022 4 LINUS (acute kidney injury) 07/18/2021 Assessment & Plan (07/21/2021 8:12 AM GREENHOUSE FLORIST): Pt with CKDstage 3, CrCl 50 ml/min. Creatinine improved. Cath today Assessment & Plan (07/20/2021 8:11 AM GREENHOUSE FLORIST): Pt with CKDstage 3, CrCl 50 ml/min. Repeat BMP today. IV hydration Mikal night before cath recommended. Assessment & Plan (07/19/2021 7:59 AM GREENHOUSE FLORIST): Pt with CKDstage 3, CrCl 50 ml/min. Stable. IV hydration Mikal night before cath recommended. Assessment & Plan (07/18/2021 3:44 PM GREENHOUSE FLORIST): LINUS (Cr 1.59 on admission) on CKD (baseline Cr 1.0-1.2) -S/p 500 ml LR bolus in ED -Follow BMPs Statin intolerance 02/10/2021 4 Syncope and collapse 12/30/2020 024 Encounter for screening colonoscopy 10/14/2020 06/17/2023 Overview (10/14/2020): Added automatically from request for surgery [id number] Joint pain 02/28/2020 06/17/2023 Assessment & Plan (04/29/2020 10:45 AM GRE[employer]HOUSE [employer]ORIST): Medrol dose pack Tramadol Q6 PRN (use, safety, s/e reviewed) Referral to Pain Management Assessment & Plan (02/28/2020 3:25 PM CDT): xrays noted, check rheum panel (? H/o pos JENNIFER) Confusion 01/04/2019 06/17/2023 Chest pain 01/15/2018 06/17/2023 Assessment & Plan (07/21/2021 9:47 AM GREENHOUSE FLORIST): CAD s/p CABG (2010), admitted with chest [...] for chest pain -Telemetry monitoring NPO for [facility] Assessment & Plan (01/16/2018 10:39 AM CDT): [...] 01/15/201801/15 Assessment & Plan (07/18/2021 3:53 PM GREENHOUSE FLORIST): BP currently well controlled -Continue amlodipine, lisinopril and metoprolol XL Assessment & Plan (02/28/2020 3:23 PM CDT): bp at target Assessment & Plan (11/22/2018 5:24 PM CDT): Continue home antihypertensives. Assessment & Plan (01/16/2018 10:37 AM CDT): Continue Metoprolol and Lisinopril Assessment & Plan (01/15/2018 4:52 AM CDT): Continue home lisinopril. Encounters Date Type Department Care Team Description 07/04/2024 3:03 AM GRE[facility]HOUSE [employer]IST - 07/04/2024 10:18 AM [facility] Emergency [facility] Emergency Department [address] [facility] [place] [address] Aleah Hoffman MD PhD Ismael Maddox MD Urinary retention (Primary Dx); Gross hematuria; Cystitis Discharge Disposition: Discharge to home or self care 06/30/2024 9:00 AM [employer] Office Visit [facility] [address] [facility] [address] [place] [address] [place] [address] Zbigniew Noel MD Bilateral hip pain; Bilateral primary osteoarthritis of hip 06/28/2024 Orders Only [facility] [address] [facility] [address] [place] [address] Perry Romero MD 06/27/2024 Orders Only [facility] [address] [place] [address] Perry Romero MD 06/22/2024 Orders Only [facility] [address] [place] [address] Perry Romero MD 06/22/2024 Telephone [facility] Cardiology [address] [facility] 8th [place] [address] [place] [address] Leonidas Carroll MD 06/21/2024 Orders Only [facility] [address] [place] [address] Perry Romero MD 06/16/2024 11:31 AM [facility]SE [employer]IST - 06/16/2024 11:59 PM [facility] Hospital Encounter [facility] [address] [place] [address] Bilateral hip pain Discharge Disposition: Discharge to home or self care 06/16/2024 10:45 AM [employer]HOUSE [employer]IST Office Visit [facility] [place] [address] Raisa Blanco NP Bilateral hip pain (Primary Dx); Chronic midline low back pain without sciatica 06/16/2024 Telephone [facility] [address] [facility] [address] [place] [address] Raisa Blanco NP 06/16/2024 Orders Only [facility] [address] [facility] [address] [place] [address] Raisa Blanco NP Bilateral hip pain (Primary Dx); Hip arthritis; Bilateral primary osteoarthritis of hip 06/16/2024 Telephone [facility] [address] [facility] 8[address] [place] [address] [place] [address] Leonidas Carroll MD Card clearance and med management pre-urologic surgery 06/05/2024 Orders Only [facility] [address] [place] [address] Perry Romero MD 05/19/2024 1:40 PM [employer] Office Visit [facility] [address] [facility] 6th [place] [address] [place] [address] Zbigniew Noel MD Encounter for other specified surgical aftercare (Primary Dx) 05/19/2024 12:44 PM GRE[employer]HOUSE [employer]IST - 05/19/2024 11:59 PM [facility] Hospital Encounter [facility] [address] [place] [address] Encounter for other specified surgical aftercare Discharge Disposition: Discharge to home or self care 05/16/2024 Orders Only [facility] [address] [place] [address] Perry Romero MD 05/15/2024 Orders Only [facility] [address] [place] [address] Perry Romero MD 05/14/2024 Orders Only [facility] [address] [facility] [address] [place] [address] Perry Romero MD 05/13/2024 Orders Only [facility] [address] [facility] [address] [place] [address] Perry Romero MD 04/24/2024 7:30 AM [facility]HOUSE [employer] - 04/24/2024 10:20 AM [facility]SE [employer] Surgery [facility] Operating Room [address] [place] [address] Zbigniew Noel MD ARTHROPLASTY TOTAL KNEE - MARION-LEFT 04/24/2024 6:58 AM GRE[facility]HOUSE [employer]IST Anesthesia Event [facility] Operating Room [address] [place] [address] David Newsome MD Saunders, Sara Louise, NP 04/24/2024 5:05 AM GRE[facility]HOUSE [employer]IST - 04/25/2024 1:03 PM GRE[facility]HOUSE [facility]IST Hospital Encounter [address] [address] Zbigniew Noel MD Preoperative testing (Primary Dx); Osteoarthritis of left knee, unspecified osteoarthritis type; Primary osteoarthritis of left knee Discharge Disposition: Discharge to home, home health skilled care 04/20/2024 Orders Only [facility] Orth[facility] Surgery [address] [place] [address] [address] [place] [address] Zbigniew Noel MD Chronic pain of left knee (Primary Dx) 04/18/2024 Telephone [facility] [address] [place] [address] [facility] [address] [place] [address] Juan M Encinas RN 04/17/2024 Orders Only [facility] [address] [place] [address] [address] [place] [address] Zbigniew Noel MD 04/12/2024 Orders Only [facility] [address] [facility] Office [facility] [address] [place] [address] Maty Weber MD 04/10/2024 10:30 AM CDT Office Visit [facility] Ophthalmology [address] [place] [address] [address] [phone] Sherri Jean-Baptiste MD AMD (age-related macular degeneration), bilateral (Primary Dx); Age-related nuclear cataract of both eyes from Last 3 Months Immunizations Name Administration Dates Next Due Influenza, Quadrivalent, Spl it, Preservative Free, Intramuscular 06/03/2019,08/05/2017 Influenza, Trivalent, High D ose, Split, Preservative Free, Intramuscular 04/25/2024 Pfizer SARS-CoV-2 Monovalent Vaccination (12+ Yrs) PURPLE 06/19/2021 Surgical History Surgery Date Site/Laterality Comments ILIAC ARTERY STENT 2014? Left MENISCUS SURGERY 06/14/2011 - 06/13/2012 Left ROTATOR CUFF REPAIR 2013? Right CARDIAC STENT PLACEMENT 11/12/2018 - 12/11/2018 x2 CORONARY ARTERY BYPASS GRAFT 06/14/2007 - 06/13/2008 triple bypass CARDIAC CATHETERIZATION 11/22/2018 positive OR FOOT SURGERY 06/28/2018 Right right 1st MTP arthrodesis FOOT SURGERY 06/02/2019 Right right first metatarsophalangeal arthrodesis revision surgery removal of deep hardware right great toe ??iliac crest bone graft - Right CARDIAC PACEMAKER PLACEMENT 04/14/2015 - 05/13/2015 Dual-chamber Biotronik Eluna pacemaker COLONOSCOPY last one 01/01/2021 APPENDECTOMY 06/14/2000 - 06/13/2001 TRANSURETHRAL RESECTION OF PROSTATE 02/13/2020 - 03/13/2020 FOOT SURGERY 07/15/2020 - 08/11/2020 2nd metatarsophalangeal shortening KNEE ARTHROSCOPY Medical History Medical History Date Comments Encounter for immunization Need for prophylactic vaccination and inoculation against influenza - Vaccines Prophylactic Need Against Influenza (Added by TW Conv) Diabetes mellitus (HCC) Heart attack (HCC) Heart failure (HCC) Atrial fibrillation (CMS/HCC) (HCC) Poor circulation Depression Macular degeneration Anxiety Hypertension Fracture, fibula Fibula fracture Low back pain Foot pain Type 2 diabetes mellitus (HCC) Panic attack Chronic pain disorder Sleep apnea needs a new mach ine Family History Medical History Relation Name Comments Drug abuse Brother 1 Heart attack Brother 1 Heart disease Brother 1 Hypertension Brother 1 Lung cancer Brother 1 Stroke Brother 1 Heart attack Brother 2 Family history of myocardial infarction - (Added by TW Conv) Lung cancer Brother 2 Rheum arthritis Brother 2 Cancer Father Coronary artery disease Father Heart attack Father Family history of myocardial infarction - (Added by TW Conv) Hypertension Father Anxiety disorder Mother Depression Mother Heart attack Mother Family history of myocardial infarction - (Added by TW Conv) Anesthesia problems Neg Hx Malig Hyperthermia Neg Hx Pseudochol deficiency Neg Hx Relation Name Status Comments Brother 1 Brother 2 Father Mother Social History Tobacco Use Types Packs/Day Years Used Date Smoking Tobacco: Former Cigarettes 1 28 1 975 - 2002 Smokeless Tobacco: Never Tobacco Cessation:Counseling Given: Not Answered Alcohol Use Standard Drinks/Week Comments Not Currently 0 (1 standard drink = 0.6 oz pur e alcohol) quit approx 2005 Social Connection and Isolation Panel [NHANES] A nswer Date Recorded In a typical week, how many times do you talk on the phone with family, friends, or neighbors? Twice a week 05/02/20 How often do you get togethe r with friends or relatives? Twice a week 05/02/2021 How often do you attend chur or sabianism services? 1 to 4 times per year 05/02/2021 Do you belong to any clubs o r organizations such as evangelical groups, unions, fraternal or athletic groups, or [...] on file Legal Sex Male 11:34 PM GRE[employer]HOUSE [employer]IST Gender Identity Not on file Sexual Orientation Not on file Obstetrics History Last Filed Vital Signs Vital Sign Reading Time Taken Comments Blood Pressure 126/84 07/04/2024 9:15 AM GREENHOUSE FL[facility]IST Pulse 78 07/04/2024 9:15 AM GREENHOUSE FLORIST Temperature 36.2 ??C (97.2 ??F) 07/04/2024 2:39 AM CS T Respiratory Rate 16 07/04/2024 9:15 AM GREENHOUSE FLORIST Oxygen Saturation 96% 07/04/2024 9:15 AM GREENHOUSE FLORIST Inhaled Oxygen Concentration - - Weight 90.7 kg (200 lb) 07/04/2024 2:36 AM GREENHOUSE FLORIST Height 180.3 cm (5' 11 ) 07/04/2024 2:36 AM GREENHOUSE FLORIST Body Mass Index 27.89 07/04/2024 2:36 AM GREENHOUSE FLORIST Plan of Treatment Health Maintenance Due Date Last Done Comments Albumin Creatinine Ratio, Urine 1955 Depression Screening 1955 Hepatitis C Screening 1955 Foot Exam 1955 DTaP/Tdap/Td Vaccine (1 - Tdap) 1966 Hepatitis B Screening 1973 Zoster Vaccine (1 of 2) 2005 Well Visit 65+ 2020 Covid-19 Vaccine ( - season) 2024 06/19/2021, 09/06/2020, 08/09/2020 Lipid Panel 09/20/2024 09/21/2023, 07/16, 02/05/2022, Additional history exists Pneumococcal vaccine 65+ (1 of 2 - PCV) 09/20/2024 Postponed from 1961 (Patient declined, but will receive in the future) Hemoglobin A1C 09/25/2024 03/27/2024, 12/0 10/2022, 02/01/2023, Additional history exists Dilated Eye Exam 04/10/2025 04/10/2024, , 02/09/2023, Additional history exists Fall Risk Assessment 04/25/2025 04/25/2024 Prostate Cancer Screening-PSA 06/17/2025 06/17/2023, 02/05/2022, 01/21/2021 eGFR 07/04/2025 07/04/2024, 06/15, 04/24/2024, Additional history exists Colon Cancer Screening-Colonoscopy 01/01/2031 01/01/2021 Colon Cancer Screening-CT Colonography Discontinued 01/01/2021 Colon Cancer Screening-DNA Stool Discontinued 01/01/2021 Colon Cancer Screening-FIT Discontinued 01/01/2021 Colon Cancer Screening-Sigmoidoscopy Discontinued 01/01/2021 Abdominal Aortic Aneurysm (AAA) Screen Completed 09/27/2023, 03/29/2020 Influenza Vaccine Completed 04/25/2024, , 08/05/2017 Goals Goal Patient Goal Type Associated Problems [...] as needed Medical Devices Implanted Type Area Aerosol Line Operator Device Identifier Shelf Expiration Date Model / Serial / Lot [email or web address] Angio-Seal Vip 6fr Closere Device [id number] - [id number] - [id number] Implanted:Qty: 1 on 11/25/2022 by Eliecer Mixon MD at [facility] [email or web address] 06/13/2023 [id number] / [id number] Lead (Ra)-05/08/2015 Implanted:05/08/2015 by Maty Weber MD (Quantity not on file) Lead Heart Biotronik 350 974 SETROX S 53 / [id number] / Lead (Rv)-05/08/2015 Implanted:05/08/2015 by Maty Weber MD (Quantity not on file) Lead Heart Biotronik 350 975 SETROX S 60 / [id number] / Pacemaker-05/08/2015 Implanted:05/08/2015 by Maty Weber MD (Quantity not on file) Pacemaker Left: Chest Biotronik [id number] KYLER 8 JOVANNI AGUILA / [id number] / Synthes 201.814 2mm 3.5mm 14mm Self Tap Cruciform Cortex Screw Bone Stainless - S0 - [id number] Implanted:Qty: 1 on 08/06/2020 by Zoey Sexton MD at [facility] Screw Synthes I 201.814 / 0 / Medtronic Card Vasc Surgery 4.0 X 26mm Al Eugene Rx Coronary Stent [id number] - [id number] - [id number] Implanted:Qty: 1 on 11/25/2022 by Clifford Sandy MD at [facility] Stent Medtronic Card Vasc Surgery 06/26/2025 [id number] / [id number] / [id number] Orthohelix [id number] Maxtorque 4mm 32.5mm Cannulated Self Drill Foot Ankle Long Thread - [id number] Implanted:Qty: 1 on 06/28/2018 at [facility] Right: Foot Orthohelix [id number] [id number] / / Orthohelix Gi [id number]-002-Pmx Ortholink 3 Hole [place] Foot Ankle Standard Plate Bone Nonsterile Latex Free - [id number] Implanted:Qty: 1 on 06/28/2018 at [facility] Right: Foot Orthohelix SHAREPOINT ARCHITECT-002- PMX / / Orthohelix [id number] Maxlock Extreme 4mm 16mm Nonlock Foot Ankle Screw Bone Nonsterile - [id number] Implanted:Qty: 1 on 06/28/2018 at [facility] Right: Foot Orthohelix SHAREPOINT ARCHITECT-011- [id number] / / Orthohelix [id number] Maxlock Extreme 4mm 18mm Nonlock Foot Ankle Screw Bone Nonsterile Latex Free - [id number] Implanted:Qty: 1 on 06/28/2018 at [facility] Right: Foot Orthohelix SHAREPOINT ARCHITECT-011- 40-18 / / Orthohelix [id number] Maxlock Extreme 4mm 14mm Nonlock Foot Ankle Screw Bone Nonsterile Latex Free - [id number] Implanted:Qty: 1 on 06/28/2018 at [facility] Right: Foot Orthohelix SHAREPOINT ARCHITECT-011- 4014 / / Daig Lewis[employer] [id number] Angio-Seal Evolution 6fr .035in Guidewire Bypass Tube Suture - [id number] Implanted:Qty: 1 on 11/22/2018 by Sarah Vasquez MD at [facility] [employer]ig [employer] 08/12/2019 [id number] / / [id number] Medtronic Sofamor Dane[employer] [id number] Infuse 14mm 23mm Absorbable Sponge Sterile Water Syringe Needle - [id number] Implanted:Qty: 1 on 06/02/2019 by Zoey Sexton MD at [facility] Right: Foot Medtronic Inc 01/11/2021 [id number] / / [id number] Ski[employer] [id number] Plate Bone Medline Unite 0 D Medium Metatarsophalangeal Right Fusion Nonsterile - [id number] Implanted:Qty: 1 on 06/02/2019 by Zoey Sexton MD at [facility] Right: Foot [employer] [id number] / / Ski[employer]i Inc [id number] Pin Fixation Medline Unite L10mm Od1.1mm - [id number] Implanted:Qty: 1 on 06/02/2019 by Zoey Sexton MD at [facility] Right: Foot [employer] Inc [id number] / / [employer] Inc [id number] Screw Bone Medline Unite L34mm Od4.5mm Head Nonsterile - [id number] Implanted:Qty: 1 on 06/02/2019 by Zoey Sexton MD at [facility] Right: Foot [employer] Inc [id number] / / [employer] Inc [id number] Screw Bone Medline Unite L16mm Od3.5mm Foot Ankle Nonlock - [id number] Implanted:Qty: 1 on 06/02/2019 by Zoey Sexton MD at [facility] Right: Foot [employer] Inc [id number] / / [employer] Inc [id number] Screw Bone Medline Unite L18mm Od3.5mm Foot Ankle Nonlock - [id number] Implanted:Qty: 1 on 06/02/2019 by Zoey Sexton MD at [facility] Right: Foot [employer] Inc [id number] / / [employer] [id number] Screw Bone Medline Unite L20mm Od3.5mm Foot Ankle Nonlock - [id number] Implanted:Qty: 2 on 06/02/2019 by Zoey Sexton MD at [facility] Right: Foot [employer] Inc [id number] / / [facility] Triathlon Cruciate Retain Bead Knee Left 5 Component Femoral Pa 5517-F-501 - [id number] Implanted:Qty: 1 on 04/24/2024 by Zbigniew Noel MD at [facility] [employer] [id number] 02/27/2029 5517-F-5 01 / / [id number] [employer] Triathlon Knee 6 Baseplate Tibial Tritanium 5536-B-600 - [id number] Implanted:Qty: 1 on 04/24/2024 by Zbigniew Noel MD at [facility] [employer] [id number] 11/08/2028 5536-B-6 00 / / [id number] [employer] Insert Tibial Triathlon 6 H11mm Knee Bearing Condylar Stabilize Sterile 5188-Y-146-E - [id number] Implanted:Qty: 1 on 04/24/2024 by Zbigniew Noel MD at [facility] [id number] 12/19/2028 5531-G-6 11-E / / [id number] Explanted Type Area Aerosol Line Operator Device Identifier Shelf Expiration Date Model / Serial / Lot [employer] [id number] Anne .45in 9in 1 [employer] Wire Fixation - S0 - [id number] Explanted:Qty: 1 on 08/06/2020 by Zoey Sexton MD at [facility] Wire [employer] [id number] S / 0 / Description:Provisional fixa tion [employer] [id number] Anne .062in 9in 1 [employer] Sm[employer] Wire Fixation - [id number] Explanted:Qty: 1 on 06/28/2018 at [facility] Right: Foot [employer] [id number] / / Description:Provisional fixa tion [employer] [id number] Anne .062in 9in 1 [employer] Smooth Wire Fixation - [id number] Explanted:Qty: 1 on 06/28/2018 at [facility] Right: Foot [employer] [id number] / / Description:Provisional fixa tion [employer] [id number] Anne .062in 9in 1 [employer] Smooth Wire Fixation - [id number] Explanted:Qty: 1 on 06/28/2018 at [facility] Right: Foot [employer] [id number] / / Description:Provisional fixa tion Screw Explanted:Qty: 5 on 08/06/2020 by Zoey Sexton MD at [facility] Other / 0 / Plate Explanted:Qty: 1 on 08/06/2020 by Drew Espinosa MD at [facility] Other / 0 / Procedures Procedure Name Priority Date/Time Associated Diagnosis Comments EGFR Timed 07/04/2024 6:54 AM [facility] BASIC METABOLIC PANEL Timed 07/04/2024 6:54 AM [facility] EGFR STAT 07/04/2024 4:25 AM [facility] DIFFERENTIAL AUTO STAT 07/04/2024 4:2 5 AM [facility] COMPREHENSIVE METABOLIC PANEL STAT 07/04/2024 4:25 AM [facility] CBC WITH AUTO DIFFERENTIAL STAT 07/04/2024 4:25 AM [facility] URINALYSIS, MICROSCOPIC ONLY STAT 07/04/2024 4:24 AM [facility] URINE CULTURE STAT 07/04/2024 4:24 AM [facility] URINALYSIS AND REFLEX TO MICROSCOPIC AND CULTURE STAT 07/04/2024 4:24 AM [facility] SCAN - PATHOLOGY 06/28/2024 12:29 PM [facility] SCAN - LABS 06/27/2024 2:55 PM [facility] SCAN - RADIOLOGY/IMAGING 06/27/2024 1:08 PM [facility] SCAN - LABS 06/22/2024 10:12 PM [facility] SCAN - LABS 06/21/2024 4:59 PM [facility] XR HIP RIGHT 2 OR 3 VIEWS Schedule Routine, Read Routine (OP Routine) 06/16/2024 11:40 AM [facility] Bilateral hip pain XR HIP LEFT 2 OR 3 VIEWS Schedule Routine, Read Routine (OP Routine) 06/16/2024 11:40 AM [facility] Bilateral hip pain SCAN - LABS 06/05/2024 8:41 AM [facility] XR KNEE LEFT 4 OR MORE VIEWS Schedule Routine, Read Routine (OP Routine) 05/19/2024 1:06 PM [facility] Encounter for other specified surgical aftercare SCAN - LABS 05/16/2024 6:07 PM [facility] SCAN - LABS 05/15/2024 11:32 AM [facility] SCAN - LABS 05/15/2024 8:52 AM [facility] SCAN - LABS 05/14/2024 4:57 PM [facility] SCAN - LABS 05/13/2024 6:07 PM [facility] SCAN - LABS 05/13/2024 4:58 PM [facility] SCAN - RADIOLOGY/IMAGING 05/13/2024 2:02 PM [facility] POCT GLUCOSE DEVICE Routine 04/25/2024 12:21 PM [facility] POCT GLUCOSE DEVICE Routine 04/25/2024 8 :13 AM [facility] EGFR Routine 04/24/2024 7:49 PM [facility] BASIC METABOLIC PANEL Routine 04/24/2024 7:49 PM [facility] CBC WITHOUT DIFFERENTIAL Routine 04/24/2024 7:49 PM [facility] POCT GLUCOSE DEVICE Routine 04/24/2024 7 :45 PM [facility] POCT GLUCOSE DEVICE Routine 04/24/2024 4 :51 PM [facility] POCT GLUCOSE DEVICE Routine 04/24/2024 12:43 PM [facility] XR KNEE LEFT 1 OR 2 VIEWS ED Urgent/IP Urgent 04/24/2024 9:44 AM [facility] POCT GLUCOSE DEVICE Routine 04/24/2024 9 :34 AM [facility] POCT GLUCOSE DEVICE Routine 04/24/2024 8 :29 AM [facility] LA AN PROCEDURE PLACEHOLDER Routine 04/24/2024 7:36 AM [facility] LA AN PROCEDURE PLACEHOLDER Routine 04/24/2024 7:35 AM [facility] ARTHROPLASTY TOTAL KNEE - MARION 04/24/2024 7:30 AM [facility] Primary osteoarthritis of left knee ANESTHESIA SPINAL BLOCK Routine 04/24/2024 7:19 AM [facility] POCT GLUCOSE DEVICE Routine 04/24/2024 6 :17 AM [facility] PROTIME-INR Routine 04/24/2024 6:14 AM [facility] DEVICE CHECK - REMOTE Routine 04/12/2024 3:15 AM CDT POCT HEMOGLOBIN A1C Routine 03/27/2024 2 :16 PM CDT CTA ABDOMINAL AORTA AND BILATERAL ILIOFEMORAL RUNOFF Schedule Routine, Read Routine (OP Routine) 09/27/2023 11:27 AM CDT Claudication in peripheral vascular disease (HCC) POCT LIPID PANEL Routine 09/21/2023 9:27 AM CDT Mixed hyperlipidemia PSA SCREEN Routine 06/17/2023 10:13 AM [facility] Prostate cancer screening COLONOSCOPY 01/01/2021 12:16 PM CDT from Last 3 Months or Most Recently Relevant to Health Maintenance Results * eGFR (07/04/2024 6:54 AM [facility]) eGFR 65 >=60 mL/min/1. 73 m2 Comment: [...] of Race in Diagnosing Kidney Disease, JASN 202). The CKD-EPI equation should not be used for patients with unstable renal function and has not been validated in children and those over 70. Current interpretive data was last reviewed 2021. Blood 07/04/2024 6:54 AM [facility] 07/04/2024 7:02 AM [facility] Josias Muir MD LAB BLOOD ORDERABLES Fi nal Result [facility] Department [place] [address] * Basic metabolic panel (07/04/2024 6:54 AM [facility]) Sodium 138 135 - 145 mmol/L Potassium, pl 4.2 3.3 - 4.9 mmol/L [facility] Chloride 103 97 - 110 mmol/L [facility] CO2 28 22 - 32 mmol/L [facility] Anion gap 7 2 - 15 mmol/L [facility] BUN 19 6 - 25 mg/dL [facility] Creatinine 1.20 0.80 - 1.30 mg/dL [facility] Glucose 137 70 - 199 mg/dL [facility] Comment: Interpretive Data Fasting glucose >/= [...] 2022. Calcium 9.2 8.5 - 10.3 mg/dL [facility] Blood 07/04/2024 6:54 AM [facility] 07/04/2024 7:02 AM [facility] us Josias Muir MD LAB BLOOD ORDERABLES Fi nal Result Performing Organization Address [facility] Co de Phone Number [facility] Department [place] [address] * eGFR (07/04/2024 4:25 AM [facility]) eGFR 67 >=60 mL/min/1. 73 m2 Comment: [...] last reviewed 2021. Blood 07/04/2024 4:25 AM [facility] 07/04/2024 4:34 AM [facility] us Josias Muir MD LAB BLOOD ORDERABLES Fi nal Result Performing Organization Address [facility] Co de Phone Number [facility] Department [place] [address] * (ABNORMAL) Differential, auto (07/04/2024 4:25 AM [facility]) Neutrophil abs 3.3 1.5 - 6.5 K/cumm Imm gran abs 0.0 0.0 - 0.1 K/cumm [facility] Lymphocyte abs 1.6 0.8 - 3.3 K/cumm [facility] Monocyte abs 1.0(H) 0.2 - 0.8 K/cumm [facility] Eosinophil abs 0.4 0.0 - 0.5 K/cumm [facility] Basophil abs 0.1 0.0 - 0.1 K/cumm [facility] Neutrophil pct 51.9 % [facility] Comment: Interpretive Data Percent cell count reference ranges are not reported, since discordance with absolute values may lead to misinterpretation of CBC data. Current Interpretive Data was last revised on 2017. Imm gran pct 0.5 % [facility] Comment: Interpretive Data Percent cell count reference ranges are not reported, since discordance with absolute values may lead to misinterpretation of CBC data. Current Interpretive Data was last revised on 2017. Lymphocyte pct 25.7 % [facility] Comment: Interpretive Data Percent cell count reference ranges are not reported, since discordance with absolute values may lead to misinterpretation of CBC data. Current Interpretive Data was last revised on 2017. Monocyte pct 15.1 % [facility] Comment: Interpretive Data Percent cell count reference ranges are not reported, since discordance with absolute values may lead to misinterpretation of CBC data. Current Interpretive Data was last revised on 2017. Eosinophil pct 5.5 % [facility] Comment: Interpretive Data Percent cell count reference ranges are not reported, since discordance with absolute values may lead to misinterpretation of CBC data. Current Interpretive Data was last revised on 2017. Basophil pct 1.3 % [facility] Comment: Interpretive Data Percent cell count reference ranges are not reported, since discordance with absolute values may lead to misinterpretation of CBC data. Current Interpretive Data was last revised on 2017. Blood 07/04/2024 4:25 AM [facility] 07/04/2024 4:34 AM [facility] Josias Muir MD LAB BLOOD ORDERABLES Fi nal Result Performing Organization Address [facility] de Phone Number [facility] Department [place] [address] * CBC with auto differential (07/04/2024 4:25 AM [facility]) [facility] WBC 6.3 3.8 - 9.9 K/cumm Hgb 13.1 13.0 - 17.5 g/dL [facility] Hct 40.1 38.9 - 50.3 % [facility] Plt 231 150 - 400 K/cumm [facility] MPV 9.5 9.1 - 12.3 fL [facility] RBC 4.41 4.30 - 5.80 M/cumm [facility] MCV 90.9 81.3 - 96.4 fL [facility] MCH 29.7 27.1 - 33.3 pg [facility] MCHC 32.7 32.3 - 35.7 g/dL [facility] RDW CV 13.2 11.1 - 14.9 % [facility] RDW SD 43.4 35.7 - 48.1 fL [facility] NRBC abs 0.00 0.00 - 0.01 K/cumm [facility] Blood 07/04/2024 4:25 AM [facility] 07/04/2024 4:34 AM [facility] Josias Muir MD LAB BLOOD ORDERABLES Fi nal Result Performing Organization Address [facility] Co de Phone Number [facility] Department [place] [address] * (ABNORMAL) Comprehensive metabolic panel (07/04/2024 4:25 AM [facility]) [facility] Sodium 140 135 - 145 mmol/L Potassium, pl 4.2 3.3 - 4.9 mmol/L [facility] Chloride 103 97 - 110 mmol/L [facility] CO2 27 22 - 32 mmol/L [facility] Anion gap 10 2 - 15 mmol/L [facility] BUN 19 6 - 25 mg/dL [facility] Creatinine 1.17 0.80 - 1.30 mg/dL [facility] Glucose 136 70 - 199 mg/dL [facility] Comment: Interpretive Data Fasting glucose >/= [...] 2022. Calcium 9.5 8.5 - 10.3 mg/dL [facility] Bilirubin, total 0.3 0.1 - 1.2 mg/dL [facility] Protein, pl 7.2 6.5 - 8.5 g/dL [facility] Albumin 4.2 3.5 - 5.0 g/dL [facility] Alk phos 39(L) 40 - 130 Units/L [facility] ALT 12 7 - 55 Units/L [facility] AST 24 10 - 50 Units/L [facility] Blood 07/04/2024 4:25 AM [facility] 07/04/2024 4:34 AM [facility] Josias Muir MD LAB BLOOD ORDERABLES Fi nal Result [facility] Department [place] [address] * (ABNORMAL) Urinalysis reflex to microscopic and culture Urine, bladder (07/04/2024 4:24 AM [facility]) Color, ur Straw Yellow Clarity, ur Cloudy(A) Clear [facility] Specific gravity, ur 1.032(H) 1.003 - 1.030 [facility] pH, urine 6.0 [facility] Comment: Interpretive Data ? Urine pH is affected by diet, medications, systemic acid-base disturbances, and renal tubular function. ??pH may affect urinary stone formation. ??For example, urine pH below 6.0 may help reduce the tendency for calcium phosphate stones and pH greater than 6.0 may reduce the tendency for uric acid stone formation. Source: [facility] Current Interpretive Data was last revised on 2017 Protein, ur ql 1+(A) Negative [facility] Glucose, ur ql Negative Negative [facility] Ketones, ur Negative Negative [facility] Bilirubin, ur Negative Negative [facility] Blood, ur 3+(A) Negative [facility] Urobilinogen, ur <2.0 <2.0 mg/dL [facility] Nitrite, ur Negative Negative [facility] Leukocyte esterase, ur Trace(A) Negative [facility] UA reflex comment Reflex to microscopic UA will be performed. [facility] Urine, bladder 07/04/2024 4: 24 AM [facility] 07/04/2024 4:32 AM [facility] Josias Muir MD LAB MICROBIOLOGY - GENE RAL ORDERABLES Final Result Performing Organization Address City/[facility] Co de Phone Number [facility] Department [place] [address] * (ABNORMAL) Urinalysis, microscopic only (07/04/2024 4:24 AM [facility]) WBC, ur 21-50(A) 0 - 5 /HPF RBC, ur >50(A) 0 - 2 /HPF [facility] Mucous, ur Present(A) [facility] Culture Reflex Comment Reflex to urine culture will be performed. [facility] Urine, bladder 07/04/2024 4: 24 AM [facility] 07/04/2024 4:32 AM [facility] Josias Muir MD LAB URINE ORDERABLES Fi nal Result Performing Organization Address [facility]/ZIP Co de Phone Number [facility] Department [place] [address] * Urine culture Urine, bladder (07/04/2024 4:24 AM [facility]) Report Final Report: No growth Urine, bladder 07/04/2024 4: 24 AM [facility] 07/04/2024 5:53 AM [facility] Narrative [facility] - 07/05/2024 7:16 AM [facility] Urine culture reflexed based upon urinalysis results. Testing performed by [facility] ([phone]) us Josias Muir MD LAB MICROBIOLOGY - GENE RAL ORDERABLES Final Result [facility] Department [place] [address] * SCAN - PATHOLOGY (06/28/2024 12:29 PM [facility]) us Perry Romero MD Final Result * SCAN - LABS (06/27/2024 2:55 PM [facility]) us Perry Romero MD Final Result * SCAN - RADIOLOGY/IMAGING (06/27/2024 1:08 PM [facility]) Anatomical Region Laterality Modality Other us Perry Romero MD Final Result * SCAN - LABS (06/22/2024 10:12 PM [facility]) us Perry Romero MD Final Result * SCAN - LABS (06/21/2024 4:59 PM [facility]) us Perry Romero MD Final Result * XR Hip Right 2 or 3 Views (06/16/2024 11:40 AM [facility]) Anatomical Region Laterality Modality Lower Extremities, Hip, Pelvis Right C omputed Radiography 06/16/2024 11:4 9 AM [facility] Impressions 06/16/2024 11:49 AM [facility] 1. ??Mild bilateral hip osteoarthritis. Electronically signed by: Yin Malone MD Narrative 06/16/2024 11:49 AM [facility] EXAMINATION: XR HIP LEFT 2 OR 3 [...] by: Yin Malone MD us Raisa Blanco [employer] [facility] XR PROCEDURES Final Resul t * XR Hip Left 2 or 3 Views (06/16/2024 11:40 AM [facility]) Anatomical Region Laterality Modality Lower Extremities, Hip, Pelvis Left C omputed Radiography 06/16/2024 11:4 9 AM [facility] Impressions 06/16/2024 11:49 AM [facility] 1. ??Mild bilateral hip osteoarthritis. Electronically signed by: Yin Malone MD Narrative 06/16/2024 11:49 AM [facility] EXAMINATION: XR HIP LEFT 2 OR 3 [...] by: Yin Malone MD us Raisa Blanco [employer] [facility] XR PROCEDURES Final Resul t * SCAN - LABS (06/05/2024 8:41 AM [facility]) us Perry Romero MD Final Result * XR Knee Left 4 or More Views (05/19/2024 1:06 PM [facility]) Anatomical Region Laterality Modality Lower Extremities, Knee Left Computed Radiography 05/19/2024 2:15 PM [facility] Impressions 05/19/2024 2:53 PM [facility] 1. Left 2-component knee arthroplasty in near anatomic alignment. 2. Mild left knee valgus and right knee varus malalignment. Dictated by: Perry Rodriguez M.D. The radiology attending physician has personally reviewed this study, and had reviewed and/or edited this written report and agrees with it. Electronically signed by: Jaswant Bloom MD Narrative 05/19/2024 2:53 PM [facility] EXAMINATION: XR KNEE LEFT 4 OR MORE [...] * SCAN - LABS (05/16/2024 6:07 PM [facility]) us Perry Romero MD Final Result * SCAN - LABS (05/15/2024 11:32 AM [facility]) us Perry Romero MD Final Result * SCAN - LABS (05/15/2024 8:52 AM [facility]) Result Stella Romero MD Final Result * SCAN - LABS (05/14/2024 4:57 PM [facility]) us Perry Romero MD Final Result * SCAN - LABS (05/13/2024 6:07 PM [facility]) us Perry Romero MD Final Result * SCAN - LABS (05/13/2024 4:58 PM [facility]) Result Stella Romero MD Final Result * SCAN - RADIOLOGY/IMAGING (05/13/2024 2:02 PM [facility]) Anatomical Region Laterality Modality Other us Perry Romero MD Final Result * POCT glucose (04/25/2024 12:21 PM [facility]) Glucose, POC 132 70 - 199 mg/dL Blood 04/25/2024 12:2 1 PM [facility] 04/25/2024 12:21 PM [facility] Zbigniew Noel MD LAB POCT ORDERABLES - DEVICE Final Result Performing Organization Address [facility] Co de Phone Number [facility] [email or web address] [place] [address] * POCT glucose (04/25/2024 8:13 AM [facility]) Glucose, POC 147 70 - 199 mg/dL Blood 04/25/2024 8:13 AM [facility] 04/25/2024 8:13 AM [facility] us Zbigniew Noel MD LAB POCT ORDERABLES - DEVICE Final Result Performing Organization Address [facility] de Phone Number [facility] [email or web address] [address] * (ABNORMAL) eGFR (04/24/2024 7:49 PM [facility]) eGFR 54(L) >=60 mL/min/1. 73 m2 Comment: [...] last reviewed 2021. Blood 04/24/2024 7:49 PM [facility] 04/24/2024 8:39 PM [facility] us Nena Toledo [employer] LAB BLOOD ORDERABLES Final Re sult [facility] Department [place] [address] * (ABNORMAL) CBC without differential (04/24/2024 7:49 PM [facility]) WBC 9.2 3.8 - 9.9 K/cumm Hgb 11.8(L) 13.0 - 17.5 g/dL [facility] Hct 36.2(L) 38.9 - 50.3 % [facility] Plt 220 150 - 400 K/cumm [facility] MPV 9.8 9.1 - 12.3 fL [facility] RBC 3.93(L) 4.30 - 5.80 M/cumm [facility] MCV 92.1 81.3 - 96.4 fL [facility] MCH 30.0 27.1 - 33.3 pg [facility] MCHC 32.6 32.3 - 35.7 g/dL [facility] RDW CV 12.4 11.1 - 14.9 % [facility] RDW SD 42.3 35.7 - 48.1 fL [facility] NRBC abs 0.00 0.00 - 0.01 K/cumm [facility] Blood 04/24/2024 7:49 PM [facility] 04/24/2024 8:39 PM [facility] Nena Toledo LAB BLOOD ORDERABLES Final Re sult Performing Organization Address City/[facility]/ZIP Co de Phone Number [facility] Department [place] [address] * (ABNORMAL) Basic metabolic panel (04/24/2024 7:49 PM [facility]) [facility] Sodium 137 135 - 145 mmol/L Potassium, pl 4.4 3.3 - 4.9 mmol/L [facility] Chloride 100 97 - 110 mmol/L [facility] CO2 28 22 - 32 mmol/L [facility] Anion gap 9 2 - 15 mmol/L [facility] BUN 18 6 - 25 mg/dL [facility] Creatinine 1.40(H) 0.80 - 1.30 mg/dL [facility] Glucose 148 70 - 199 mg/dL [facility] Comment: Interpretive Data Fasting glucose >/= [...] 2022. Calcium 9.2 8.5 - 10.3 mg/dL [facility] Blood 04/24/2024 7:49 PM [facility] 04/24/2024 8:39 PM GREENHOUSE FLORIST Nena Toledo CONE WINDER LAB BLOOD ORDERABLES Final Re sult Performing Organization Address [facility] Co de Phone Number [facility] [place] [address] * POCT glucose (04/24/2024 7:45 PM GREENHOUSE FLORIST) Glucose, POC 153 70 - 199 mg/dL Blood 04/24/2024 7:45 PM GREENHOUSE FLORIST 04/24/2024 7:45 PM GREENHOUSE FLORIST Zbigniew Noel MD LAB POCT ORDERABLES - DEVICE Final Result Performing Organization Address [facility] Co de Phone Number [facility] [email or web address] [address] * (ABNORMAL) POCT glucose (04/24/2024 4:51 PM GREENHOUSE FLORIST) Glucose, POC 200(H) 70 - 199 mg/dL Blood 04/24/2024 4:51 PM GREENHOUSE FLORIST 04/24/2024 4:51 PM GREENHOUSE FLORIST Zbigniew Noel MD LAB POCT ORDERABLES - DEVICE Final Result Performing Organization Address [facility] de Phone Number [facility] [email or web address] [address] * POCT glucose (04/24/2024 12:43 PM GREENHOUSE FLORIST) Glucose, POC 132 70 - 199 mg/dL Blood 04/24/2024 12:4 3 PM GREENHOUSE FLORIST 04/24/2024 12:43 PM GREENHOUSE FLORIST Zbigniew Noel MD LAB POCT ORDERABLES - DEVICE Final Result Performing Organization Address [facility] Co de Phone Number [facility] [email or web address] [address] * XR Knee Left 1 or 2 View (04/24/2024 9:44 AM GREENHOUSE FLORIST) Anatomical Region Laterality Modality Lower Extremities, Knee Left Computed Radiography 04/24/2024 9:46 AM GREENHOUSE FLORIST Impressions 04/24/2024 9:46 AM GREENHOUSE FLORIST 1. New two component left knee arthroplasty for osteoarthritis. Electronically signed by: Eliecer Huang M.D. Narrative 04/24/2024 9:46 AM GREENHOUSE FLORIST EXAMINATION: XR KNEE LEFT 1 OR 2 [...] osteoarthritis. Electronically signed by: Eliecer Huang M.D. Nellie Avina MD IMG XR PROCEDURES Final Re sult * POCT glucose (04/24/2024 9:34 AM GREENHOUSE FLORIST) Glucose, POC 110 70 - 199 mg/dL Blood 04/24/2024 9:34 AM GREENHOUSE FLORIST 04/24/2024 9:34 AM GREENHOUSE FLORIST Zbigniew Noel MD LAB POCT ORDERABLES - DEVICE Final Result Performing Organization Address [facility] Co de Phone Number [facility] Department [place] [address] * POCT glucose (04/24/2024 8:29 AM GREENHOUSE FLORIST) Glucose, POC 101 70 - 199 mg/dL Blood 04/24/2024 8:29 AM GREENHOUSE FLORIST 04/24/2024 8:29 AM GREENHOUSE FLORIST Zbigniew Noel MD LAB POCT ORDERABLES - DEVICE Final Result Performing Organization Address [facility] Co de Phone Number [facility] Department [place] [address] * LA AN PROCEDURE PLACEHOLDER (04/24/2024 7:36 AM GREENHOUSE FLORIST) Candy Liriano MD - 04/24/2024 7:36 AM GREENHOUSE FLORIST Ilsa Bishop MD ? 04/24/2024 ??7:37 AM Peripheral Block Patient location during procedure: pre-op holding Reason for block: post-op pain management per surgeon request Block type: single shot Laterality: left Block type: IPACK Staff: Supervising provider: Candy Moncada MD Placed by: Resident: Ilsa Bishpo MD Procedure prep: Preprocedure checklist: patient identified, [...] complications Ilsa Bishop MD ANESTHESIA ORDERABLES Lilia rosales Result * LA AN PROCEDURE PLACEHOLDER (04/24/2024 7:35 AM GREENHOUSE FLORIST) Candy Liriano MD - 04/24/2024 7:35 AM GREENHOUSE FLORIST Ilsa Bishop MD ? 04/24/2024 ??7:36 AM [...] Result * Spinal Block (04/24/2024 7:19 AM GREENHOUSE FLORIST) Narrative Navneet Salgado MD - 04/24/2024 7:19 AM GREENHOUSE FLORIST Navneet Salgado MD ? 04/24/2024 ??7:20 AM [...] Final * POCT glucose (04/24/2024 6:17 AM GREENHOUSE FLORIST) Glucose, POC 122 70 - 199 mg/dL Blood 04/24/2024 6:17 AM GREENHOUSE FLORIST 04/24/2024 6:17 AM GREENHOUSE FLORIST Zbigniew Noel MD LAB POCT ORDERABLES - DEVICE Final Result Performing Organization Address [facility] Co de Phone Number [facility] [place] [address] * Protime-INR (04/24/2024 6:14 AM GREENHOUSE FLORIST) PT 12.7 9.7 - 13.0 sec INR 1.17 0.90 - 1.20 [facility] Comment: Interpretive data Oral anticoagulant therapeutic ranges: Venous thromboembolism prophylaxis or treatment: 2.0-3.0 CARDIOLOGY Standard range: 2.0-3.0 High-intensity range: 2.5-3.5 Refer to indication-specific guidelines for appropriate target ranges for prosthetic heart valve replacement. Current interpretive data was last revised on 2019. Blood 04/24/2024 6:14 AM GREENHOUSE FLORIST 04/24/2024 6:32 AM GREENHOUSE FLORIST Result [facility] Navneet Salgado MD LAB BLOOD ORDERABLES Final Resu lt Performing Organization Address City/[facility]/ZIP Co de Phone Number [facility] [place] [address] * DEVICE CHECK - REMOTE (04/12/2024 3:15 AM CDT) Anatomical Region Laterality Modality Other 04/12/2024 3:15 AM CDT Narrative 04/17/2024 4:08 PM GREENHOUSE FLORIST Interpretation Summary: Battery and Leads (BL) Normal parameters noted on battery and lead(s) --- 35% remaining longevity (implanted 2014). ?Lead impedance, sensing, and threshold trends stable and appropriate. Presenting Rhythm (LA) [place] Oversensing noted on presenting rhythm Atrial [...] and threshold trends stableand appropriate. Presenting Rhythm (LA) [place] Oversensing noted on presenting rhythm Atrial [...] Est Average Gluc POC 123 mg/dL [facility] Comment: The ADA recommends reporting an estimated Average Glucose (eAG) with all Hemoglobin A1c results using the equation derived from a study of 507 normal and diabetic adults. ??Minority populations were underrepresented and children were not included. ?? (Diabetes Care 31:7973-7847, 2008). ??The eAG is not equivalent to a fasting glucose. Blood 03/27/2024 2:16 PM CDT 03/27/2024 2:16 PM CDT us Zbigniew Noel MD POINT OF CARE TEST O RDERABLES Final Result [facility] Department [place] [address] * CTA Abdominal Aorta And Bilateral Iliofemoral [...] POCT lipid panel (09/21/2023 9:27 AM CDT) Cholesterol, POC <100 mg/dL Triglycerides, POC 214 mg/dL Capillary blood 09/21/2023 9 :27 AM CDT Perry Romero MD POINT OF CARE TEST ORDERABLES Final Result * PSA screen (06/17/2023 10:13 AM GREENHOUSE FLORIST) PSA 0.4 0.0 - 4.0 ng/mL [facility] - 01 Comment: Shahbaz ECLIA methodology. According to the [employer], Serum PSA should decrease and [...] malignant disease. Blood 06/17/2023 10:1 3 AM GREENHOUSE FLORIST 06/17/2023 Narrative [facility] - 06/18/2023 6:11 AM GREENHOUSE FLORIST Performed at: ?? - [facility] [address] ??[id number] Shift Supervisor Melting: Edgar Menard PhD, Phone: ??[phone] us Mamieeliana Rose [facility] WINDER LAB BLOOD ORDERABLES Fin al Result [facility] - * COLONOSCOPY (01/01/2021 12:16 PM CDT) Anatomical Region Laterality Modality Other Narrative Procedure Note Emily Zeng MD - 01/01/2021 12:16 PM CDT [facility] END[facility] Patient Name: Vicky Youssef Procedure Date: 01/01/2021 12:16 PM Date of : 1955 Admit Type: Outpatient Age: 65 Gender: Male Attending MD: Huy Reed Room: [facility] ENDOSCOPY ROOM 3 Note Status: Finalized Procedure: [...] passed under direct vision.The CF HQ [id number] endoscope was introducedthrough the anus and advanced to the cecum, identified by appendiceal orifice and ileocecal valve. The colonoscopy was performed without difficulty. The patient tolerated the procedure well. The qualityof the bowel preparation was evaluated using the BBPS ([place] Bowel Preparation Scale) with scores of:Right Colon [...] On: 01/01/2021 12:16 PM Recognized by the [employer] for promoting quality in endoscopy us Emily Zeng MD ENDOSCOPY PROCEDUR ES Final Result from Last 3 Months or Most Recently Relevant to Health Maintenance Insurance MEDICARE BLUE CROSS MEDICARE SUPPLEMENT MEDICARE [facility] MEDICARE SUPPLEMENT MEDICARE BLUE CROSS MEDICARE SUPPLEMENT MEDICARE [facility] [place] CROSS MEDICARE SUPPLEMENT Advance Directives For more information, please contact: [phone] * Full Code (Latest Code Status on [...] 11:59 AM 01/01/2021 5:28 PM Care Teams Sales Professional Relationship Specialty Start Date End Date Perry Romero MD [address] [place] [address] PCP - General Internal Medicine 02/23/20 Leonidas Carroll MD Premium Service Representative Cardiology 05/23/19 Love Jones, PT Physical Therapist Physical Therapy 09/28/22 Arthur Bateman MD [address] [place] [address] Referring Physician Anesthesiology 09/28/22 Karl Cha MD [address] [place] [address] Referring Physician Orthopedic Surgery 11/24/23
--- OUTSIDE RECORDS SUMMARY | 2024-07-06 14:55 | XMS_ITS | Encounter Summary ---
Author Organization [facility] Address [address] [place] [address] Phone Care Team Providers Care Dining Room Busser Name Role Phone Deacon Eisenberg DO Primary Care Provider [phone] Provider, None Primary Care Provider Unavailabl e Encounter Details Date Type Department Care Team (Late st Contact Info) Description 02/15/2020 Transcribe Orders [facility] Preop/Pacu II 1 [place] [id number] Anish Martinez MD [address] [place] [address] Pre-op testing (Primary Dx) Social History Tobacco Use Types Packs/Day Years Used Date Smoking Tobacco: Former Smokeless Tobacco: Never Alcohol Use Standard Drinks/Week Comments Not Currently 0 (1 standard drink = 0.6 oz pur e alcohol) Sexually Active Control Partners Comments Not Currently Female Sex and Gender Information Value Date Recorded Sex Assigned at Not on file Legal Sex Male 2:15 PM CDT Gender Identity Not on file Sexual Orientation Not on file COVID-19 Exposure Response Date Recorded In the last month, have you been in contact with someone who was confirmed or suspected to have Coronavirus / COVID-19? No / Unsure 02/15/2020 8:43 AM CDT documented as of this encounter Plan of Treatment Not on file documented as of this encounter Results * TYPE AND SCREEN(REPEAT) (02/20/2020 10:52 AM CDT) ABO TYPING AB 02/20/2020 2:05 PM CDT [facility] RH Positive 02/20/2020 2:05 PM CDT [facility] ABSC Negative 02/20/2020 2:05 PM CDT [facility] Blood Venipuncture / Unknown 02/20/2020 10:52 AM CDT 02/20/2020 11:43 AM CDT us Anish Martinez MD BLOOD BANK ORDERABLES Edited Result - Final [facility] B[facility]OD [facility] #[address] [place] [address] documented in this encounter Visit Diagnoses Diagnosis Pre-op testing- Primary Preoperative examination, unspecified documented in this encounter Care Teams Dining Room Busser Relationship Specialty Start Date End Date Deacon Eisenberg DO [address] [address] PCP - General Family Medicine 11/15/19 02/19/20 Provider, None [place] PCP - General 02/20/20 documented as of this encounter
--- OUTSIDE RECORDS SUMMARY | 2024-07-06 14:55 | XMS_ITS | Encounter Summary ---
Author Organization [facility] Address [address] [place] [address] Phone Care Team Providers Care Mother Baby Rn Name Role Phone Tim Sanchez MD Primary Care Provider [phone] Lina Mcadams MD Primary Care Provide r Deacon Eisenberg DO Primary Care Provider [phone] Leonidas Carroll MD Unavailable [phone] Perry Romero MD Primary Care Provider [phone] Love Jones PT Unavailable Unavailab Arthur Law MD Unavailable Karl Cha MD Unavailable [phone] Encounter Details Date Type Department Care Team (Late st Contact Info) Description 11/24/2015 Orders Only [facility] CAR CLINCONV ProviderHeena MD [address] [place] [address] Social History Tobacco Use Types Packs/Day Years Used Date Smoking Tobacco: Never Assessed Sex and Gender Information Value Date Recorded Sex Assigned at Not on file 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 us Historical Provider [facility] NATHAN MULLIGAN Final Result documented in this encounter Visit Diagnoses Not on filedocumented in this encounter Care Teams Mother Baby Rn Relationship Specialty Start Date End Date Tim Sanchez MD [address] [place] [address] PCP - General 09/29/16 01/13/18 Lina Mcadams MD [address] [facility] [address] [place] [address] PCP - General 01/14/18 11/21/18 Deacon Eisenberg DO [address] [facility] [address] [place] [address] PCP - General 11/22/18 02/22/20 Perry Romero MD [address] [facility] [address] [place] [address] PCP - General Internal Medicine 02/23/20 Leonidas Carroll MD [address] [facility] [address] [place] [address] Company Marker Cardiology 05/23/19 Love Jones, PT Physical Therapist Physical Therapy 09/28/22 Arthur Bateman MD [address] [facility] [address] [place] [address] Referring Physician Anesthesiology 09/28/22 Karl Cha MD [address] [facility] [address] [place] [address] Referring Physician Orthopedic Surgery 11/24/23 documented as of this encounter
--- OUTSIDE RECORDS SUMMARY | 2024-07-06 14:55 | XMS_ITS | Encounter Summary ---
Author Organization [facility] Address [address] [place] [address] Care Team Providers Care Instructional Design Consultant Name Role Phone Leonidas Carroll MD Unavailable [phone] Perry Romero MD Primary Care Provider [phone] Love Jones PT Unavailable Unavailab Arthur Law MD Unavailable Karl Cha MD Unavailable [phone] Encounter Details Date Type Department Care Team (Late st Contact Info) Description 10/28/2021 Telephone [facility] Radiology 1 [place], [place] [id number] Alberto Pack MD PhD [address] [place] [address] Social History Tobacco Use Types Packs/Day Years [...] friends, or neighbors? Twice a week 05/02/20 21 How often do you get togethe r with friends or relatives? Twice a week 05/02/2021 How often do you attend [facility] or caodaism services? 1 to 4 times per year 05/02/2021 Do you belong to any clubs o r organizations such as rastafarian groups, unions, fraternal or athletic groups, or school groups? No 05/02/2021 How often do you attend meet ings of the clubs or organizations you belong to? Never 05/02/2021 Are you , , di vorced, , never , or living with a partner? 05/02/2021 AUDIT-C Answer Date Recorded Q1: How often do you have a drink containing alc ohol? Never 07/18/2021 Average Number of Drinks Not on file 022 Q3: How often do you have si x or more drinks on one occasion? Never 07/18/2021 Overall Financial Resource Strain (CARDIA) Answe r [...] the money to buy more. Never true 05/02/20 21 Within the past 12 months, t he food you bought just didn't last and you didn't have money to get more. Never true 05/02/2021 PRAPARE - Transportation Answer Date Re corded In the past 12 months, has l ack of transportation kept you from medical appointments or from getting medications? No 04/14 In the past 12 months, has l ack of transportation kept you from meetings, work, or from getting things needed for daily living? 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 Gender Identity Not on file Sexual Orientation Not on file documented as of this encounter Plan of Treatment Not on file documented as of this encounter Goals Goal Patient Goal Type Associated Problems [...] lifestyle strategies and compensatory methods as needed documented as of this encounter Visit Diagnoses Not on filedocumented in this encounter Care Teams Instructional Design Consultant Relationship Specialty Start Date End Date Perry Romero MD [address] [facility] [address] [place] [address] PCP - General Internal Medicine 02/23/20 Leonidas Carroll MD Public Health Aide Cardiology 05/23/19 Love Jones, PT Physical Therapist Physical Therapy 09/28/22 Arthur Bateman MD [address] [facility] [address] [place] [address] Referring Physician Anesthesiology 09/28/22 Karl Cha MD [address] [place] [address] Referring Physician Orthopedic Surgery 11/24/23 documented as of this encounter
--- OUTSIDE RECORDS SUMMARY | 2024-07-06 14:55 | XMS_ITS | Encounter Summary ---
Author Organization [facility] Address [address] [place] [address] Phone Care Team Providers Care Repack Room Worker Name Role Phone Leonidas Carroll MD Unavailable [phone] Perry Romero MD Primary Care Provider Love Jones PT Unavailable Unavailab Arthur Law MD Unavailable Karl Cha MD Unavailable [phone] Encounter Details Date Type Department Care Team (Late st Contact Info) Description 06/22/2024 Telephone [facility] Cardiology [address] [facility] 8th [place] [address] [place] [address] Leonidas Carroll MD [address] [facility] [address] [place] [address] Social History Tobacco Use Types Packs/Day Years [...] week 05/02/2021 How often do you attend [facility] or confucianism services? 1 to 4 times per year 05/02/2021 Do you belong to any clubs o r organizations such as zoroastrianism groups, unions, fraternal or athletic groups, or [...] making you feel afraid or unsafe? 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 Author CCM Chronic Pain Care Plan Chronic Care Management No change(12/14 10:43 AM CDT) Brissa Pate, RN Note: Problem: Chronic Pain Goals: 1. Minimize further functional decline 2. Maximize quality of life 3. Control pain Strategies: - Activity/exercise program recommendation - Conservative stepwise pain medicine strategy with multi-disciplinary approach - Recommend healthy lifestyle strategies and compensatory methods as needed documented as of this encounter Visit Diagnoses Not on filedocumented in this encounter Care Teams Repack Room Worker Relationship Specialty Start Date End Date Perry Romero MD [address] [facility] [address] [place] [address] PCP - General Internal Medicine 02/23/20 Leonidas Carroll MD Director Immunology Cardiology 05/23/19 Love Jones, PT Physical Therapist Physical Therapy 09/28/22 Arthur Bateman MD [address] [facility] [address] [place] [address] Referring Physician Anesthesiology 09/28/22 Karl Cha MD [address] [place] [address] Referring Physician Orthopedic Surgery 11/24/23 documented as of this encounter
--- OUTSIDE RECORDS SUMMARY | 2024-07-06 14:55 | XMS_ITS | Encounter Summary ---
Author Organization [facility] Address [address] [place] [address] Phone Care Team Providers Care Child Care Center Assistant Director Name Role Phone Tim Sanchez MD Primary Care Provider [phone] Lina Mcadams MD Primary Care Provide r Deacon Eisenberg DO Primary Care Provider [phone] Leonidas Carroll MD Unavailable [phone] Perry Romero MD Primary Care Provider [phone] Love Jones PT Unavailable Unavailab Arthur Law MD Unavailable Karl Cha MD Unavailable [phone] Encounter Details Date Type Department Care Team (Late st Contact Info) Description 09/15/2016 Orders Only [facility] ProviderHeena MD [address] [place] [address] Social History Tobacco Use Types Packs/Day Years Used Date Smoking Tobacco: Never Assessed Sex and Gender Information Value Date Recorded Sex Assigned at Not on file 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 us Historical Provider [facility] NATHAN MULLIGAN Final Result documented in this encounter Visit Diagnoses Not on filedocumented in this encounter Care Teams Child Care Center Assistant Director Relationship Specialty Start Date End Date Tim Sanchez MD [address] [place] [address] PCP - General 09/29/16 01/13/18 Lina Mcadams MD [address] [facility] [address] [place] [address] PCP - General 01/14/18 11/21/18 Deacon Eisenberg DO [address] [facility] [address] [place] [address] PCP - General 11/22/18 02/22/20 Perry Romero MD [address] [facility] [address] [place] [address] PCP - General Internal Medicine 02/23/20 Leonidas Carroll MD [address] [facility] [address] [place] [address] Collar Turner Cardiology 05/23/19 Love Jones, PT Physical Therapist Physical Therapy 09/28/22 Arthur Bateman MD [address] [facility] [address] [place] [address] Referring Physician Anesthesiology 09/28/22 Karl Cha MD [address] [facility] [address] [place] [address] Referring Physician Orthopedic Surgery 11/24/23 documented as of this encounter
--- OUTSIDE RECORDS SUMMARY | 2024-07-06 14:55 | XMS_ITS | Encounter Summary ---
Author Organization [facility] Address [address] [place] [address] Phone Care Team Providers Care Methods Engineer Name Role Phone Tim Sanchez MD Primary Care Provider [phone] Lina Mcadams MD Primary Care Provide r Deacon Eisenberg DO Primary Care Provider [phone] Leonidas Carroll MD Unavailable [phone] Perry Romero MD Primary Care Provider [phone] Love Jones PT Unavailable Unavailab Arthur Law MD Unavailable Karl Cha MD Unavailable [phone] Encounter Details Date Type Department Care Team (Latest Contact Info) Description 03/05/2017 Orders Only [facility] CONVERSION Scanning, Provider Social History Tobacco Use Types Packs/Day Years Used Date Smoking Tobacco: Never Assessed Sex and Gender Information Value Date Recorded Sex Assigned at Not on file 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 Gender Identity Not on file Sexual Orientation Not on file documented as of this encounter Plan of Treatment Not on file documented as of this encounter Procedures Procedure Name Priority Date/Time Associated Diagnosis Comments VASCULAR LABORATORY REPORT 03/05/2017 11:25 PM CDT documented in this encounter Results * VASCULAR LABORATORY REPORT (03/05/2017 11:25 PM CDT) Anatomical Region Laterality Modality Ultrasound us Provider Scanning CV VASCULAR PROCEDURES Final R esult documented in this encounter Visit Diagnoses Not on filedocumented in this encounter Care Teams Methods Engineer Relationship Specialty Start Date End Date Tim Sanchez MD [address] [place] [address] PCP - General 09/29/16 01/13/18 Lina Mcadams MD [address] [facility] [address] [place] [address] PCP - General 01/14/18 11/21/18 Deacon Eisenberg DO [address] [facility] [address] [place], [place] [id number] PCP - General 11/22/18 02/22/20 Perry Romero MD [address] [facility] [address] [place] [address] PCP - General Internal Medicine 02/23/20 Leonidas Carroll MD [address] [facility] [address] [place] [address] Patient Care Technician Instructor Cardiology 05/23/19 Love Jones, PT Physical Therapist Physical Therapy 09/28/22 Arthur Bateman MD [address] [facility] [address] [place] [address] Referring Physician Anesthesiology 09/28/22 Karl Cha MD [address] [place] [address] Referring Physician Orthopedic Surgery 11/24/23 documented as of this encounter
--- OUTSIDE RECORDS SUMMARY | 2024-07-06 14:55 | XMS_ITS | Encounter Summary ---
Author Organization [facility] Address [address] [place] [address] Phone Care Team Providers Care Digital Imager Name Role Phone Lina Mcadams MD Primary Care Provide r Deacon Eisenberg DO Primary Care Provider [phone] Leonidas Carroll MD Unavailable [phone] Perry Romero MD Primary Care Provider Love Jones PT Unavailable Unavailab Arthur Law MD Unavailable Karl Cha MD Unavailable [phone] Encounter Details Date Type Department Care Team (Late st Contact Info) Description 01/25/2018 Telephone [facility] Cardiology [address] [facility] Advanced Medicine 8th [place] [address] [place] [address] Leonidas Carroll MD [address] [facility] [address] [place], [place] [id number] Social History Tobacco Use Types Packs/Day Years Used Date Smoking Tobacco: Former Smokeless Tobacco: Never Alcohol Use Standard Drinks/Week Comments No 0 (1 standard drink = 0.6 oz pur e alcohol) Sex and Gender Information Value Date Recorded Sex Assigned at Not on file 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 Gender Identity Not on file Sexual Orientation Not on file documented as of this encounter Plan of Treatment Not on file documented as of this encounter Visit Diagnoses Not on filedocumented in this encounter Care Teams Digital Imager Relationship Specialty Start Date End Date Lina Mcadams MD [address] [facility] [address] [place] [address] PCP - General 01/14/18 11/21/18 Deacon Eisenberg DO [address] [facility] [address] [place] [address] PCP - General 11/22/18 02/22/20 Perry Romero MD [address] [facility] [address] [place] [address] PCP - General Internal Medicine 02/23/20 Leonidas Carroll MD [address] [facility] [address] [place] [address] Header Boss Cardiology 05/23/19 Love Jones, PT Physical Therapist Physical Therapy 09/28/22 Arthur Bateman MD [address] [facility] [address] [place] [address] Referring Physician Anesthesiology 09/28/22 Karl Cha MD [address] [place] [address] Referring Physician Orthopedic Surgery 11/24/23 documented as of this encounter
--- OUTSIDE RECORDS SUMMARY | 2024-07-06 14:55 | XMS_ITS | Encounter Summary ---
Author Organization [facility] Address [address] [place] [address] Phone Care Team Providers Care Biomedical Specialist Name Role Phone Deacon Eisenberg DO Primary Care Provider [phone] Leonidas Carroll MD Unavailable [phone] Perry Romero MD Primary Care Provider [phone] Love Jones PT Unavailable Unavailab Arthur Law MD Unavailable Karl Cha MD Unavailable [phone] Encounter Details Date Type Department Care Team (Late st Contact Info) Description 10/31/2019 Orders Only [facility] Scanning, Provider Social History Tobacco Use Types Packs/Day Years Used Date Smoking Tobacco: Former Cigarettes 1 28 1 975 - 2002 Smokeless Tobacco: Never Alcohol Use Standard Drinks/Week Comments Not Currently 0 (1 standard drink = 0.6 oz pur e alcohol) Sex and Gender Information Value Date Recorded Sex Assigned at Not on file 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 Gender Identity Not on file Sexual Orientation Not on file documented as of this encounter Plan of Treatment Not on file documented as of this encounter Procedures Procedure Name Priority Date/Time Associated Diagnosis Comments SCAN - RADIOLOGY/IMAGING 10/31/2019 documented in this encounter Results * SCAN - RADIOLOGY/IMAGING (10/31/2019) Anatomical Region Laterality Modality Other us Provider Scanning Edited Result - Final documented in this encounter Visit Diagnoses Not on filedocumented in this encounter Care Teams Biomedical Specialist Relationship Specialty Start Date End Date Deacon Eisenberg PCP - General 11/22/18 02/22/20 Perry Romero MD [address] [facility] [address] [place] [address] PCP - General Internal Medicine 02/23/20 Leonidas Carroll MD Hand Sewer Cardiology 05/23/19 Love Jones, PT Physical Therapist Physical Therapy 09/28/22 Arthur Bateman MD [address] [email or web address] [address] [place] [address] Referring Physician Anesthesiology 09/28/22 Karl Cha MD [address] [place] [address] Referring Physician Orthopedic Surgery 11/24/23 documented as of this encounter
--- OUTSIDE RECORDS SUMMARY | 2024-07-06 14:55 | XMS_ITS | Encounter Summary ---
Author Organization [facility] Address [address] [place] [address] Care Team Providers Care Stone Mill Operator Name Role Phone Leonidas Carroll MD Unavailable [phone] Perry Romero MD Primary Care Provider [phone] Love Jones PT Unavailable Unavailab Arthur Law MD Unavailable Karl Cha MD Unavailable [phone] Encounter Details Date Type Department Care Team (Late st Contact Info) Description 07/08/2023 Telephone [facility] [address] [facility] Advanced Medicine [address] [place], [place] [id number] Arthur Bateman MD [address] [facility] [address] [place] [address] Social History Tobacco Use Types Packs/Day Years [...] week 05/02/2021 How [facility] attend [facility]? 1 to 4 times per year 05/02/2021 Do you belong to any clubs o r organizations such as restoration groups, unions, fraternal or athletic groups, or school groups? No 05/02/2021 How often do you attend meet ings of the clubs or organizations you belong to? Never 05/02/2021 Are you , , di vorced, , never , or living with a partner? 05/02/2021 AUDIT-C Answer Date Recorded Q1: How often do you have a drink containing alc ohol? Never 04/20/2023 Average Number of Drinks Not on file 023 Q3: How often do you have si x or more drinks on one occasion? Never 04/20/2023 Overall Financial Resource Strain (CARDIA) Answe r [...] the money to buy more. Never true 07/30/19 23 Within the past 12 months, t he food you bought just didn't last and you didn't have money to get more. Never true 07/30/2022 PRAPARE - Transportation Answer Date Re corded [...] making you feel afraid or unsafe? 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[employer] Gender Identity Not on file Sexual Orientation [...] on filedocumented in this encounter Care Teams Stone Mill Operator Relationship Specialty Start Date End Date Perry Romero MD [address] [facility] [address] [place] [address] PCP - General Internal Medicine 02/23/20 Leonidas Carroll MD Welder Fitter Helper Cardiology 05/23/19 Love Jones PT Physical Therapist Physical Therapy 09/28/22 Arthur Bateman MD [address] [facility] [address] [place] [address] Referring Physician Anesthesiology 09/28/22 Karl Cha MD [address] [place] [address] Referring Physician Orthopedic Surgery 11/24/23 documented as of this encounter
--- OUTSIDE RECORDS SUMMARY | 2024-07-06 14:55 | XMS_ITS | Encounter Summary ---
Author Organization [facility] Address [address] [place] [address] Phone Care Team Providers Care Video Game Animator Name Role Phone Lina Mcadams MD Primary Care Provide r Deacon Eisenberg DO Primary Care Provider [phone] Leonidas Carroll MD Unavailable [phone] Perry Romero MD Primary Care Provider [phone] Love Jones PT Unavailable Unavailab Arthur Law MD Unavailable Karl Cha MD Unavailable [phone] Encounter Details Date Type Department Care Team (Late st Contact Info) Description 07/08/2018 Telephone [facility] Cardiology [address] 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 Gender Identity Not on file Sexual Orientation Not on file documented as of this encounter Plan of Treatment Not on file documented as of this encounter Visit Diagnoses Not on filedocumented in this encounter Care Teams Video Game Animator Relationship Specialty Start Date End Date Lina Mcadams MD [address] [facility] [address] [place] [address] PCP - General 01/14/18 11/21/18 Deacon Eisenberg DO [address] [facility] [address] [place] [address] PCP - General 11/22/18 02/22/20 Perry Romero MD [address] [facility] [address] [place] [address] PCP - General Internal Medicine 02/23/20 Leonidas Carroll MD [address] [facility] [address] [place] [address] Aircraft Armament Mechanic Cardiology 05/23/19 Love Jones, PT Physical Therapist Physical Therapy 09/28/22 Arthur Bateman MD [address] [facility] [address] [place] [address] Referring Physician Anesthesiology 09/28/22 Karl Cha MD [facility] [place] [address] Referring Physician Orthopedic Surgery 11/24/23 documented as of this encounter
--- OUTSIDE RECORDS SUMMARY | 2024-07-06 14:55 | XMS_ITS ---
Author Organization 1 [facility] Address [address] [facility] [employer] [address] [address] Care Team Providers Care Geophysical Prospector Name Role Phone Perry Romero MD Primary Care Provider [place] [facility] [phone] REASON FOR VISIT RIGHT FOOT PAIN Medications Medication SIG (Take, Route, Frequency, Duration) Notes Start Date End Date Status metFORMIN HCl 1000 MG Oral for 90 Days Active Escitalopram Oxalate 20 MG Oral for 30 Days Active Lisinopril 10 MG Oral for 90 Days Active ALPRAZolam 1 MG Oral for 30 Days Active Finasteride 5 MG Oral for 90 Days Active busPIRone HCl 30 MG Oral for 30 Days Active oxyBUTYnin Chloride ER 10 MG Oral for 90 Days Active Fenofibrate 145 MG Oral for 90 Days Active fluvoxaMINE Maleate 100 MG Oral for 30 Days Active Nitroglycerin 0.4 MG Sublingual for 30 Days Active Cyclobenzaprine HCl 10 MG Oral for 30 Days Active Gabapentin 100 MG Oral for 30 Days Active Clopidogrel Bisulfate 75 MG Oral for 90 Days Active LORazepam 1 MG Oral for 30 Days Active fluvoxaMINE Maleate 100 MG TAKE 1 TABLET BY MOUTH TWICE DAILY Oral for 30 Days Active amLODIPine Besylate 2.5 MG Oral for 90 Days Active HYDROcodone-Acetaminophen 5-325 MG Oral for 7 Days Active Metoprolol Tartrate 25 MG Oral for 90 Days Active Pantoprazole Sodium 40 MG TAKE 1 TABLET BY MOUTH EVERY MORNING 30 MINUTES BEFORE FIRST MEAL OF THE DAY Oral for 90 Days Active Ezetimibe 10 MG Oral for 90 Days Active Vital Signs Height 71 in 09/28/2023 Encounters Encounter Location Date Provider Diagnosis 1 OF [facility] [address] [address] 09/28/2023 Rio Gladis Metatarsalgia, right foot M77.41 ; Gastrocnemius equinus, right M62.461 and Right foot pain M79.671 Assessments Encounter Date Diagnosis (ICD Code) Assessment Notes Treatment Notes Treatment Clinical Notes Section Notes 09/28/2023 Metatarsalgia, right foot (ICD-10 - M77.41) 09/28/2023 Gastrocnemius equinus, right (ICD-10 - M62.461) 09/28/2023 Right foot pain (ICD-10 - M79.671) 09/28/2023 Other I did examine a nd evaluate the patient today. X-rays were obtained and reviewed and I do believe that he is suffering from metatarsalgia to the right second MTPJ exacerbated by the cavus foot type and tight Achilles tendon. I gave him written and oral instructions regarding posterior calf muscle stretching exercises to be performed twice daily and recommended that he refrain from any barefoot walking utilizing a supportive shoe gear. I did also recommend custom orthotics with an associated metatarsal pad and we will go ahead and get him on the schedule for that. I will see him back 2 weeks following the fabrication of the orthotics or sooner should problems arise Plan Of Treatment Treatment Notes Assessment Notes Other I did examine and ev aluate the patient today. X-rays were obtained and reviewed and I do believe that he is suffering from metatarsalgia to the right second MTPJ exacerbated by the cavus foot type and tight Achilles tendon. I gave him written and oral instructions regarding posterior calf muscle stretching exercises to be performed twice daily and recommended that he refrain from any barefoot walking utilizing a supportive shoe gear. I did also recommend custom orthotics with an associated metatarsal pad and we will go ahead and get him on the schedule for that. I will see him back 2 weeks following the fabrication of the orthotics or sooner should problems arise Next Appt Details Follow Up: after orthotics, Reason: Progress Notes * Deacon YOUSSEFDOB: (68 yo M)Acc No.[id number]:09/28/2023 Patient:?Deacon YOUSSEF Provider:?Rio Griffith DPM :1955???Age:68 Y???Sex:Male Noel e:09/28/2023 [facility] Pcp:Perry Romero MD Subjective: * Chief Complaints: * ???RIGHT FOOT PAIN * HPI: ???MA assisting with visit::?HPI/Rooming:?Buffy.?Primary reason for visit::?68?year old diabetic male, referred by [employer] with chief complaint of RT foot pain of about a year?duration aggravated by prolonged standing/walking and improved by getting off feet. Pt describes her pain as aching and rates it as a 5/10 in severity at this time.?Pt denies any prior treatment or recent injury related to his condition at this time. Pt. states that he is having pain in the ball of his foot. * ROS:?GENERAL:?NAUSEA, FEVER OR CHILLS?denies,?denies.?UNEXPLAINED LOSS OR GAIN OF WEIGHT?denies.?UNEXPLAINED FATIGUE OR LACK OF ENERGY?denies.?RECENT FALL?denies.?CARDIAC:?CHEST PAIN?denies.?DIFFICULTY BREATHING WHEN LAYING DOWN?denies.?SOB w/ ACTIVITY?denies.?PERIPHERAL VASCULAR:?FATIGUE IN CALF MUSCLE WHILE WALKING? admits.?PAIN, SWELLING OR FEELING OF TIGHTNESS IN LEG ? admits.?FREQUENT OR CHRONIC SWELLING OF LEGS?denies.?TOES TURN BLUE, WHITE, PAINFUL WITH COLD TEMPERATURE?denies.?NEUROLOGICAL:?DIZZINESS, LIGHT HEADED OR FAINTING?denies.?WEAKNESS OR PARALYSIS?denies.?DIFFICULTY WITH BALANCE?denies.?PERIPHERAL NEUROLOGICAL:?BURNING, TINGLING, STINGING SENSATION OF FEET?denies.?NUMBNESS OF FOOT / FEET?denies.?WEAKNESS OF FOOT / FEET? admits.?GASTROINTESTINAL:?ABDOMINAL PAIN?denies.?BLOODY STOOL?denies.?FREQUENT HEARTBURN?denies.?FREQUENT NAUSEA OR VOMITING?denies.?MUSCULOSKELETAL:?LOW BACK PAIN? admits.?HIP PAIN? admits.?KNEE PAIN? admits.?SWELLING / STIFFNESS JOINTS OF HANDS / FEET?denies.?ENDOCRINE:?DELAYED HEALING OF WOUNDS?denies.?INTOLERANCE TO HEAT OR COLD?denies.?EXCESSIVE THIRST?denies.?FREQUENT URINATION?denies.?HEMATOLOGY/ONCOLOGY:?ANEMIA?denies.?BLEED or BRUISE EASILY?denies.?ANTI-COAGULANT USE?denies.? * Medical History:? * Surgical History:?No Surgica l History documented. * Hospitalization/Major Diagno stic Procedure:?No Hospitalization History. * Family History:?No Family Hi story documented..? * Social History:?Drugs/Alcohol:?Do you smoke marijuana?: Denies. ?Alcohol use: Denies current alcohol use. ?Recreational drugs: Patient denies recreational drug use. * Medications:?TakingbusPIRone HCl 30 MG Tablet Oral oxyBUTYnin Chloride ER 10 MG Tablet Extended Release 24 Hour Oral metFORMIN HCl 1000 MG Tablet Oral Escitalopram Oxalate 20 MG Tablet Oral Lisinopril 10 MG Tablet Oral ALPRAZolam 1 MG Tablet Oral Finasteride 5 MG Tablet Oral Metoprolol Tartrate 25 MG Tablet Oral Pantoprazole Sodium 40 MG Tablet Delayed Release TAKE 1 TABLET BY MOUTH EVERY MORNING 30 MINUTES BEFORE FIRST MEAL OF THE DAY Oral Ezetimibe 10 MG Tablet Oral amLODIPine Besylate 2.5 MG Tablet Oral HYDROcodone-Acetaminophen 5-325 MG Tablet Oral Cyclobenzaprine HCl 10 MG Tablet Oral Gabapentin 100 MG Capsule Oral Clopidogrel Bisulfate 75 MG Tablet Oral LORazepam 1 MG Tablet Oral fluvoxaMINE Maleate 100 MG Tablet TAKE 1 TABLET BY MOUTH TWICE DAILY Oral Fenofibrate 145 MG Tablet Oral fluvoxaMINE Maleate 100 MG Tablet Oral Nitroglycerin 0.4 MG Tablet Sublingual Sublingual Taking busPIRone HCl 30 MG Tablet Oral Taking oxyBUTYnin Chloride ER 10 MG Tablet Extended Release 24 Hour Oral Taking metFORMIN HCl 1000 MG Tablet Oral Taking Escitalopram Oxalate 20 MG Tablet Oral Taking Lisinopril 10 MG Tablet Oral Taking ALPRAZolam 1 MG Tablet Oral Taking Finasteride 5 MG Tablet Oral Taking Metoprolol Tartrate 25 MG Tablet Oral Taking Pantoprazole Sodium 40 MG Tablet Delayed Release TAKE 1 TABLET BY MOUTH EVERY MORNING 30 MINUTES BEFORE FIRST MEAL OF THE DAY Oral Taking Ezetimibe 10 MG Tablet Oral Taking amLODIPine Besylate 2.5 MG Tablet Oral Taking HYDROcodone-Acetaminophen 5-325 MG Tablet Oral Taking Cyclobenzaprine HCl 10 MG Tablet Oral Taking Gabapentin 100 MG Capsule Oral Taking Clopidogrel Bisulfate 75 MG Tablet Oral Taking LORazepam 1 MG Tablet Oral Taking fluvoxaMINE Maleate 100 MG Tablet TAKE 1 TABLET BY MOUTH TWICE DAILY Oral Taking Fenofibrate 145 MG Tablet Oral Taking fluvoxaMINE Maleate 100 MG Tablet Oral Taking Nitroglycerin 0.4 MG Tablet Sublingual Sublingual Objective: * Vitals:?Ht: 71 in. * Examination: ???General Examination: ?Constitutional / Appearance: ?No acute distress , Well nourished, Appropriate personal hygiene.?Mental status: ?Cooperative, Oriented to person, place and time, Mood and affect: normal, Judgement and intellect: normal with appropriate response to questions.?Shoes today:?XXXX.?Decreased range of motion for all joints from the ankle joint distal without pain or crepitus appreciated except for the right second MTPJ which does demonstrate mild pain with range of motion which is quite limited especially with plantarflexion and there is also pain on palpation to the plantar aspect of the right second MTPJ. The right second digit is stable to the modified Niraj exam and I do appreciate a mild semiflexible contracture of the second digit PIPJ. Ankle joint dorsiflexion measures less than 10 degrees with the knees extended bilaterally and I do appreciate a well-healed incision scar noted to the dorsal aspect of the right first MTPJ and there is negligible range of motion of the right first MTPJ. There is a cavus foot type appreciated bilaterally X-ray 3 views right foot reveal no fractures or dislocations. No tumors or cystic changes are noted. On lateral view there is an increased calcaneal inclination angle noted with decreased talocalcaneal angle and some elevatus of the first metatarsal. Arthrodesis of the first MTPJ has been performed with complete consolidation and a shortening osteotomy of the second metatarsal has been performed as well with stable internal fixation and joint space to the second MTPJ appears to be within normal limits. ???Lower Extremity VASCULAR: : ?Pulses:?DP and PT pulses, palpable, bilateral.?Temperature gradient: ?warm from proximal to distal, bilateral.?Pedal hair: ?present, bilateral.?Capillary refill at distal toes?less than 3 seconds.?Lower Extremity DERM: : ?Skin: ?well hydrated , no suspicious lesions, without interdigital maceration, bilateral.?Lower Extremity NEURO: : ?Neurological status: ?normal sensation to sharp/ dull with normal and symmetric muscle tone bilateral.?Lower Extremity MSK: : ?Gait? Gait unremarkable with normal posture, propulsion and balance.?Muscle strength: ?5/5 , all 4 quadrants tested, bilateral.?Left lower extremity inspection and palpation: ?No palpable masses or nodules noted..?Right lower extremity inspection and palpation: ?No palpable masses or nodules noted. .? Assessment: * Assessment: 1.?Metatarsalgia, right foot - M77.41 (Primary)?2.?Gastrocnemius equinus, right - M62.461?3.?Right foot pain - M79.671? Plan: * Treatment: * Procedure Codes:?73657 X-RAY FOOT (3 views), Modifiers: RT * Follow Up:?after orthotics * Images: * Sign off status: Completed true * Provider:?Rio Griffith DPM Date:?09/12 Generated for Humberto hayes/Vanda/Arpita on:?07/06/2024 02:54 PM STRUCTURAL STEEL WORKER History and Physical Notes * HPI (History of Present Illness) Category Sub-Category Detail Notes Category Not es Primary reason for visit: 68 year old diabetic male, referred by [employer] with chief complaint of RT foot pain of about a year duration aggravated by prolonged standing/walking and improved by getting off feet. Pt describes her pain as aching and rates it as a 5/10 in severity at this time. Pt denies any prior treatment or recent injury related to his condition at this time. Pt. states that he is having pain in the ball of his foot. SUSANNAH assisting with visit: HPI/Rooming: Buffy Examination Category Sub-Category Detail Notes Category Not es General Examination Mental status: Cooperative, Oriented to per son, place and time, Mood and affect: normal, Judgement and intellect: normal with appropriate response to questions Decreased range of motion for all joints from the ankle joint distal without pain or crepitus appreciated except for the right second MTPJ which does demonstrate mild pain with range of motion which is quite limited especially with plantarflexion and there is also pain on palpation to the plantar aspect of the right second MTPJ. The right second digit is stable to the modified Niraj exam and I do appreciate a mild semiflexible contracture of the second digit PIPJ. Ankle joint dorsiflexion measures less than 10 degrees with the knees extended bilaterally and I do appreciate a well-healed incision scar noted to the dorsal aspect of the right first MTPJ and there is negligible range of motion of the right first MTPJ. There is a cavus foot type appreciated bilaterally X-ray 3 views right foot reveal no fractures or dislocations. No tumors or cystic changes are noted. On lateral view there is an increased calcaneal inclination angle noted with decreased talocalcaneal angle and some elevatus of the first metatarsal. Arthrodesis of the first MTPJ has been performed with complete consolidation and a shortening osteotomy of the second metatarsal has been performed as well with stable internal fixation and joint space to the second MTPJ appears to be within normal limits. Shoes today: XXXX Constitutional / Appearance: No acute di stress , Well nourished, Appropriate personal hygiene Lower Extremity VASCULAR: Pulses: DP and PT pulse s, palpable, bilateral Temperature gradient: warm from proximal to distal, bilateral Pedal hair: present, bilateral Capillary refill at distal toes less flaca n 3 seconds Lower Extremity NEURO: Neurological status: norm al sensation to sharp/ dull with normal and symmetric muscle tone bilateral Lower Extremity MSK: Muscle strength: 5/5 , all 4 quad rants tested, bilateral Left lower extremity inspect ion and palpation: No palpable masses or nodules noted. Right lower extremity inspec tion and palpation: No palpable masses or nodules noted. Gait Gait unremarkable wi th normal posture, propulsion and balance Lower Extremity DERM: Skin: well hydra whitney , no suspicious lesions, without interdigital maceration, bilateral
--- OUTSIDE RECORDS SUMMARY | 2024-07-06 14:55 | XMS_ITS | Encounter Summary ---
Author Organization [facility] Address [address] [place] [address] Phone Care Team Providers Care Concrete Pile Driver Operator Name Role Phone Tim Sanchez MD Primary Care Provider [phone] Lina Mcadams MD Primary Care Provide r Deacon Eisenberg DO Primary Care Provider [phone] Leonidas Carroll MD Unavailable [phone] Perry Romero MD Primary Care Provider [phone] Love Jones PT Unavailable Unavailab Arthur Law MD Unavailable Karl Cha MD Unavailable [phone] Encounter Details Date Type Department Care Team (Late st Contact Info) Description 05/13/2015 Orders Only 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 us Historical Provider [facility] NATHAN MULLIGAN Final Result documented in this encounter Visit Diagnoses Not on filedocumented in this encounter Care Teams Concrete Pile Driver Operator Relationship Specialty Start Date End Date Tim Sanchez MD [address] [place] [address] PCP - General 09/29/16 01/13/18 Lina Mcadams MD [address] [facility] [address] [place] [address] PCP - General 01/14/18 11/21/18 Deacon Eisenberg DO [address] [facility] [address] [place] [address] PCP - General 11/22/18 02/22/20 Perry Romero MD [address] [facility] [address] [place] [address] PCP - General Internal Medicine 02/23/20 Leonidas Carroll MD [address] [facility] [address] [place] [address] Packaging Sales Cardiology 05/23/19 Love Jones, PT Physical Therapist Physical Therapy 09/28/22 Arthur Bateman MD [address] [facility] [address] [place] [address] Referring Physician Anesthesiology 09/28/22 Karl Cha MD [address] [facility] [address] [place] [address] Referring Physician Orthopedic Surgery 11/24/23 documented as of this encounter
--- OUTSIDE RECORDS SUMMARY | 2024-07-06 14:55 | XMS_ITS | Encounter Summary ---
Author Organization [facility] Address [address] [place] [address] Phone Care Team Providers Care Heel Finisher Name Role Phone Leonidas Carroll MD Unavailable [phone] Perry Romero MD Primary Care Provider [phone] Love Jones PT Unavailable Unavailab Arthur Law MD Unavailable Karl Cha MD Unavailable [phone] Encounter Details Date Type Department Care Team (Late st Contact Info) Description 03/13/2020 Orders Only [facility] Scanning, Provider Social History Tobacco Use Types Packs/Day Years Used Date Smoking Tobacco: Former Cigarettes 1 28 1 975 - 2002 Smokeless Tobacco: Never Alcohol Use Standard Drinks/Week Comments Not Currently 0 (1 standard drink = 0.6 oz pur e alcohol) Sex and Gender Information Value Date Recorded Sex Assigned at Not on file 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 Gender Identity Not on file Sexual Orientation Not on file documented as of this encounter Plan of Treatment Not on file documented as of this encounter Procedures Procedure Name Priority Date/Time Associated Diagnosis Comments SCAN - RADIOLOGY/IMAGING 03/13/2020 documented in this encounter Results * SCAN - RADIOLOGY/IMAGING (03/13/2020) Anatomical Region Laterality Modality Other us Provider Scanning Edited Result - Final documented in this encounter Visit Diagnoses Not on filedocumented in this encounter Care Teams Heel Finisher Relationship Specialty Start Date End Date Perry Romero MD [address] [facility] [address] [place] [address] PCP - General Internal Medicine 02/23/20 Leonidas Carroll MD Station Mechanic Helper Cardiology 05/23/19 Love Jones, PT Physical Therapist Physical Therapy 09/28/22 Arthur Bateman MD [address] [facility] [address] [place] [address] Referring Physician Anesthesiology 09/28/22 Karl Cha MD [address] [place] [address] Referring Physician Orthopedic Surgery 11/24/23 documented as of this encounter
--- OUTSIDE RECORDS SUMMARY | 2024-07-06 14:55 | XMS_ITS | Data Portability ---
Author Organization [place] [facility], Main Office Address [address] [place] [address] Care Team Providers Care Sales Operations Analyst Name Role Phone JESÚS ROMERO Primary Care Provider ALEXIS RAMOS Referring Provider Assessment Encounter Date Assessment Date Assessment LastModified by Organization Details LastModified Time 07/08/2023 07/08/2023 Impression: 1. Patient has at least moderately severe Medial compartment osteoarthritis left knee. He has moderate medial compartment osteoarthritis in the right. He realizes that he cannot consider proceeding with knee replacement until at least November. Today he would like cortisone shots in both knees. I have discussed risk of complications with him including risk of infection. After ChloraPrep prep, 20 mg of Kenalog and 4 cc of 0.5% ropivacaine were injected both knees of difficulty. 2. Patient has buttock pain that may be pseudoclaudication associated with his lumbar spinal stenosis. Alternatively, he may have claudication associated with significant arterial insufficiency in the internal iliac artery distribution. That is going to be in the differential diagnosis along with his lumbar spinal stenosis causing the symptoms. I discussed with him that an angiogram can show that and he did have an angiogram about a year ago it sounds like I do not know if that was showing his aorta with distal runoff or focused on the coronary arteries. I have explained him that I will be no longer working at [facility] and I will be starting to work in the [facility] [employer] in September. He asked where I was going in I advised him that I will be going to [facility] for appointment and working there. I will be happy to see him back as needed. He understands the cam a cortisone shot as often as every 3 months if they are necessary and helpful. 30 minutes were spent total his mother half the time spent in kood-eg-xrfa care [email or web address] Not available 07/08/2023 14:43:05 Plan of Treatment Reminders Order Date Submit Date Provider Last Modified By Organization Details Last Modified Time Details Appointments None recorded. Lab None recorded. Referral None recorded. Procedures injection/a spiration joint/bursa (PROC) - in office procedure, administere d by provider 2023 024 [email or web address] In-Office Order, Internal Use Only DO Not Attach Compendium DO Not Attach Compendium, Do Not Delete/merge, [id number] 11:50:27 Surgeries None recorded. Imaging None recorded. Medication Orders Kenalog 10 mg/mL suspension for injection 2023 024 [facility]120 [address] [id number], [address] , [place], [place], [id number], 4 01:49:27 ropivacaine (PF) 5 mg/mL (0.5 %) injection solution 2023 024 [facility]120 [address] [facility] [id number], [address] , [place], [place], [id number], 4 01:49:27 Patient TargetsNo targets recorded. Patient InstructionsNo instructions recorded. Reason for Referral None Reported. Results Created Date Observation Date Name Description Value Unit Range Abnormal Flag Note LastModifiedBy Organization Detail LastModifiedTime 11/24/19 24 11/19/2023 ([facility]) ankle brach ial index * No observ ation record ed. [email or web address] [facility] [address] [place], [address], 11/25/2023 09:12:12 Result Notes None recorded. Problems Name Problem SNOMED Code Status Onset Date Resolution Date Notes Provider Name and Address Organization Details Recorded Time Myocardial infarction 11134250 Active 2017 Not Available [facility] 4 01:49:28 Diabetes mellitus 56954377 Active 2017 Not Available [facility] 4 01:49:28 Pain of right knee joint 5811046265386 00 Active 2023 Not Available [facility] 4 01:49:28 Pain of bilateral knee joints 2192960299393 04 Active 2023 Not Available [facility] 4 01:49:28 Problem Notes None recorded. Procedures Surgical History Date Name Laterality Status Provider Name and Address Organization Details Recorded Time Cardiac Bypass completed Daylin Lara CMA [place] [facility] [employer] 07/08/2023 11:41:16 Imaging Results Imaging Date Name Status LastModified by Organiz ation Details LastModified Time 11/19/2023 ([facility]) ankle brachial index* completed [email or web address] [facility] [address] [place], [address], 11/25/2023 09:12:12 Procedure Notes None recorded. Medical Equipment None Reported. Allergies No known drug allergies Medications Name Sig Start Date Stop Date Status Note LastModified by Organization Details LastModified Time cyclobenzap rine 10 mg tablet 07/08 completed Not Available Not Available Not Available Flomax 0.4 mg capsule Take 1 capsule every day by oral route. active Not Available Not Available No t Available latanoprost 0.005 % eye drops INSTILL ONE DROP INTO EACH EYE AT BEDTIME active Not Available Not Available No t Available oxybutynin chloride ER 15 mg tablet,exte nded release 24 hr 07/08 completed Not Available Not Available Not Available oxybutynin chloride ER 10 mg tablet,exte nded release 24 hr 07/08 completed Not Available Not Available Not Available alprazolam 1 mg tablet TAKE 1 TABLET BY MOUTH TWICE DAILY NEEDED FOR ANXIETY active Not Available Not Available No t Available hydrocodone 5 mg-acetamin ophen 325 mg tablet TAKE 1 TABLET BY MOUTH EVERY 6 HOURS FOR UP TO 7 DAYS NEEDED FOR PAIN active Not Available Not Available No t Available meloxicam 15 mg tablet 07/08 completed Not Available Not Available Not Available amlodipine 2.5 mg tablet active Not Available Not Available Not Available clopidogrel 75 mg tablet TAKE 1 TABLET DAILY active Not Available Not Available No t Available tramadol 50 mg tablet 07/08 completed Not Available Not Available Not Available Kenalog 10 mg/mL suspension for injection in office procedure , administe red by provider 2023 active [facility]: 0003- [phone]- 20 Not Available Not Available Not Available fluvoxamine 100 mg tablet TAKE 1 TABLET BY MOUTH TWICE DAILY active Not Available Not Available No t Available hydrocodone 7.5 mg-acetamin ophen 325 mg tablet TAKE 1 TABLET EVERY FOUR HOURS NEEDED FOR PAIN active Not Available Not Available No t Available pantoprazol e 40 mg tablet,pablito yed release TAKE 1 TABLET BY MOUTH EVERY MORNING 30 MINUTES BEFORE FIRST MEAL OF THE DAY 07/08 completed Not Available Not Available Not Available erythromyci n 5 mg/gram (0.5 %) eye ointment APPLY 1 STRIP OF OINTMENT TO THE AFFECTED EYE 3-4 TIMES DAILY active Not Available Not Available No t Available buspirone 30 mg tablet TAKE 1 TABLET BY MOUTH TWICE DAILY active Not Available Not Available No t Available metformin 1,000 mg tablet TAKE 1 TABLET TWICE DAILY WITH MORNING AND EVENING MEALS active Not Available Not Available No t Available nitroglycer in 0.[address] 1 TABLET UNDER THE TONGUE EVERY 5 MINUTES NEEDED FOR CHEST PAIN. MAY REPEAT DOSE EVERY 5 MINUTES UP TO 3 DOSES TOTAL active Not Available Not Available No t Available lisinopril 5 mg tablet active Not Available Not Available Not Available gabapentin 100 mg capsule active Not Available Not Available Not Available lorazepam 1 mg tablet TAKE 1 TABLET BY MOUTH TWICE DAILY NEEDED active Not Available Not Available No t Available clobetasol 0.05 % scalp solution APPLY TOPICALLY TO THE SCALP TWICE DAILY 07/08 completed Not Available Not Available Not Available lisinopril 2.5 mg tablet TAKE ONE TABLET DAILY 07/08 completed Not Available Not Available Not Available doxycycline hyclate 100 mg tablet TAKE 1 TABLET BY MOUTH TWICE DAILY FOR 10 DAYS 07/08 completed Not Available Not Available Not Available finasteride 5 mg tablet Take 1 tablet every day by oral route. active Not Available Not Available No t Available neomycin-po lymyxin-hyd rocort 3.5 mg-10,000 unit/mL-1 % ear drops,susp INSTILL 4 DROPS INTO BOTH EARS TWICE A DAY FOR 10 DAYS 07/08 completed Not Available Not Available Not Available ezetimibe 10 mg tablet TAKE 1 TABLET DAILY active Not Available Not Available No t Available cyclobenzap rine 5 mg tablet 07/08 completed Not Available Not Available Not Available metoprolol tartrate 25 mg tablet active Not Available Not Available No t Available fenofibrate nanocrystal lized 145 mg tablet active Not Available Not Available No t Available ropivacaine (PF) 5 mg/mL (0.5 %) injection solution in office procedure , administe red by provider 2023 active [facility] [address] -[phone] Not Available Not Available Not Available Vitals Date Recorded Body height Body mass index (BMI) Body weight Provider Name and Address Organization Details Last Updated DateTime 07/08/2023 175.26 cm 32.2 kg/m2 35158.14 g Daylin Lara CMA [employer] 07/08/2023 11:27:41 Social History Question Answer Notes LastModified by Organizat ion Details LastModified Time Tobacco Smoking Status Never Smoker Daylin Lara CMA null, [email or web address] [facility] 07/08/2023 11:41:03 What Is Your Level Of Alcohol Consumption? None [email or web address] Information not available 07/08/2023 Sex: Unknown Functional Status None recorded. Mental Status None recorded. Family History Relationship Description Onset Age of this Age Resolved Age Notes LastModified by Organization Details LastModified Time Brother Heart disease [email or web address] Not available 2023 11:38:31 Brother Hypertensive disorder [email or web address] Not available 2023 11:40:17 Brother Family history of malignant neoplasm [email or web address] Not available 2023 11:40:36 Father Heart disease [email or web address] Not available 2023 11:38:31 Father Hypertensive disorder [email or web address] Not available 2023 11:40:17 Father Family history of malignant neoplasm [email or web address] Not available 2023 11:40:36 Medical History Condition Response HEART DISEASE/HEART PROBLEMS Y USE OF BLOOD THINNERS Y VASCULAR DISEASE Y HAVE YOU BEEN HOSPITALIZED OR SEEN IN [facility] ER IN THE PAST YEAR ? Y COPD Y Past Encounters Encounter ID Performer Location Encounter Start Date Encounter Closed Date Diagnosis/Indication Diagnosis SNOMED-CT Code Diagnosis ICD10 Code Diagnosis Note [id number] Karl Cha MD [facility] [address] [address] 07/08/2023 10:43:38 07/08/2023 14:50:13 Pain of bilateral knee joints 1297036944 59359 M25.561 M25.562 Health Concerns Section Related Observation LastModified by Organization Detai ls LastModified Time None Recorded Concern Status LastModified by Organization Details LastModified Time None Recorded Advance Directives Directive None Recorded Payers Encounter Date Sequence Insurance Name Policy Number Policy Alfaro Covered Member ID Alfaro Member ID Guarantor Name 07/08/2023 1 [place] Deacon Villalobos Domonique [id number] Deacon Villalobos Domonique 07/08/2023 2 [place] [id number] Deacon Villalobos Domonique [id number] Deacon Villalobos Domonique Notes Date Note Type Note Provider Name and Address Organization Details Recorded Time 07/08/2023 text/html patient is a 68-year-old gentleman who was a patient of Dr. Romero was referred by Dr. Ramos for evaluation of his knees. He was scheduled for a left total knee replacement earlier this year with Dr. Ramos but that had to be put off as he was found need a coronary artery stent which was placed in November. His order puller is Dr. Salinas for min at [place]. He has been placed on Plavix to protect the stent and has been told that she cannot be off the Plavix for a total knee replacement until after November of 2023. He sees his order puller again in September. Today would like cortisone shots. I reviewed his prior x-rays. He had x-rays at Dr. Waterman's office November 18, 2022 which showed moderately severe narrowing of medial compartment joint space of the left knee and moderate narrowing of medial compartment joint space in the right knee. The narrowing appears worse on the lateral views of both knees. Vascular clips are seen in the right thigh. Patient had coronary artery bypass in 2007. He has mild calcific atherosclerotic changes of the superficial femoral arteries bilaterally. His past medical history is significant for lumbar spinal stenosis L1-2 and L4-5. He complains of pain in his buttocks that becomes severe after 10 minutes of walking so severe that he cannot continue and he has to stop. If he can sit down he will but if he has no place to sit he can stand without leaning on something and still get relief that he can start walking again. He has been going through cardiac rehab and he can walk 20 minutes on the treadmill. 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 Karl Cha MD [address] [facility], [facility] [address], [place], [address], [facility] 07/08/2023 14:43:25
--- OUTSIDE RECORDS SUMMARY | 2024-07-06 14:55 | XMS_ITS | Encounter Summary ---
Author Organization [facility] Address [address] [place] [address] Phone Care Team Providers Care Manager Voice Name Role Phone Tim Sanchez MD Primary Care Provider [phone] Lina Mcadams MD Primary Care Provide r Deacon Eisenberg DO Primary Care Provider [phone] Leonidas Carroll MD Unavailable [phone] Perry Romero MD Primary Care Provider Love Jones PT Unavailable Unavailab Arthur Law MD Unavailable Karl Cha MD Unavailable [phone] Encounter Details Date Type Department Care Team (Late st Contact Info) Description 08/01/2017 Orders Only [facility] CAR CLINCONV ProviderHeena MD [address] [place] [address] Social History Tobacco Use Types Packs/Day Years Used Date Smoking Tobacco: Never Assessed Sex and Gender Information Value Date Recorded Sex Assigned at Not on file 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 us Historical Provider [facility] NATHAN MULLIGAN Final Result documented in this encounter Visit Diagnoses Not on filedocumented in this encounter Care Teams Manager Voice Relationship Specialty Start Date End Date Tim Sanchez MD [address] [place] [address] PCP - General 09/29/16 01/13/18 Lina Mcadams MD [address] [facility] [address] [place] [address] PCP - General 01/14/18 11/21/18 Deacon Eisenberg DO [address] [facility] [address] [place] [address] PCP - General 11/22/18 02/22/20 Perry Romero MD [address] [facility] [address] [place] [address] PCP - General Internal Medicine 02/23/20 Leonidas Carroll MD [address] [facility] [address] [place] [address] Line Person Cardiology 05/23/19 Love Jones, PT Physical Therapist Physical Therapy 09/28/22 Arthur Bateman MD [address] [facility] [address] [place] [address] Referring Physician Anesthesiology 09/28/22 aKrl Cha MD [address] [facility] [address] [place] [address] Referring Physician Orthopedic Surgery 11/24/23 documented as of this encounter
--- OUTSIDE RECORDS SUMMARY | 2024-07-06 14:55 | XMS_ITS | Encounter Summary ---
Author Organization [facility] Address [address] [place] [address] Care Team Providers Care Community Outreach Director Name Role Phone Leonidas Carroll MD Unavailable [phone] Perry Romero MD Primary Care Provider [phone] Love Jones PT Unavailable Unavailab Arthur Law MD Unavailable Karl Cha MD Unavailable [phone] Encounter Details Date Type Department Care Team (Late st Contact Info) Description 06/28/2024 Orders Only [facility] [address] [facility] [address] [place] [address] Perry Romero MD [address] [facility] [address] [place], [place] [id number] Social History Tobacco Use Types Packs/Day Years [...] week 05/02/2021 How often do you attend [facility] or jewish services? 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 Gender Identity Not on file Sexual Orientation [...] as needed documented as of this encounter Procedures Procedure Name Priority Date/Time Associated Diagnosis Comments SCAN - PATHOLOGY 06/28/2024 12:29 PM SKETCH MAKER documented in this encounter Results * SCAN - PATHOLOGY (06/28/2024 12:29 PM SKETCH MAKER) us Perry Romero MD Final Result documented in this encounter Visit Diagnoses Not on filedocumented in this encounter Care Teams Community Outreach Director Relationship Specialty Start Date End Date Perry Romero MD [address] [facility] [address] [place] [address] PCP - General Internal Medicine 02/23/20 Leonidas Carroll MD Position Clerk Cardiology 05/23/19 Love Jones, PT Physical Therapist Physical Therapy 09/28/22 Arthur Bateman MD [address] [place] [address] Referring Physician Anesthesiology 09/28/22 Karl Cha MD [facility] [place] [address] Referring Physician Orthopedic Surgery 11/24/23 documented as of this encounter
--- OUTSIDE RECORDS SUMMARY | 2024-07-06 14:55 | XMS_ITS | Continuity of Care Document ---
Author Organization [facility] Address [address] [place] [address] [address] [place] [address] Phone Care Team Providers Care Metal Casket Maker Name Role Phone Mary Ellen Dunn Unavailable Unavailable Advance Directives Directive Yes / No Effective Date File Name No Information Encounters Encounter Description Practice Location Reason(s) For Visit Diagnoses Date Provider Providers Copied on Encounter [facility], [address] [place] [address] [address], [place], [place], [id number], [place] tel:[phone] [facility] [place] No Information [phone] Mona Hyde. [address] [facility] , [address], [place], [address], [place]. tel:[phone] Family History Family Member Type Diagnosis Age At Onset No Information Payers Payer name Insurance type Covered libertarian ID Authoriza tion(s) No Information Social History Type Description Quantity Date Captured Comments Sex Male Smoking Status No Information Chief Complaint And Reason For Visit No Information Reason For Referral Reason For Referral No Information History Of Present Illness Encounter Date Complaint History Of Prese nt Illness No Information Functional Status Date Functional Assessmen t No Information Instructions Date Instruction Additional Infor mation No Information Assessments Type Assessment Date No Information Patient Care Teams Name Effective Dates (start - stop) Status Members No Information
--- OUTSIDE RECORDS SUMMARY | 2024-07-06 14:55 | XMS_ITS | Encounter Summary ---
Author Organization [facility] Address [address] [place] [address] Care Team Providers Care Assistant Secretary Name Role Phone Leonidas Carroll MD Unavailable [phone] Perry Romero MD Primary Care Provider [phone] Love Jones PT Unavailable Unavailab Arthur Law MD Unavailable Karl Cha MD Unavailable [phone] Reason for Visit * Reason Onset Date Comments pre proc blood thinner 07/24/2021 Encounter Details Date Type Department Care Team (Late st Contact Info) Description 07/24/2021 Telephone [facility] [address] [facility] [address] [place], [place] [id number] Arthur Bateman MD [address] [facility] [address] [place], [place] [phone] pre proc blood thinner Social History Tobacco Use Types Packs/Day Years Used Date Smoking Tobacco: Former Cigarettes 1 28 1 975 - 2003 Smokeless Tobacco: Never Alcohol Use Standard Drinks/Week [...] 05/02/2021 How often do you attend chur ch or moravian services? 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 Author CCM Chronic Pain Care Plan Chronic Care Management No change(12/14 10:43 AM CDT) No Brissa Muse RN Note: Problem: Chronic Pain Goals: 1. Minimize further functional decline 2. Maximize quality of life 3. Control pain Strategies: - Activity/exercise program recommendation - Conservative stepwise pain medicine strategy with multi-disciplinary approach - Recommend healthy lifestyle strategies and compensatory methods as needed documented as of this encounter Visit Diagnoses Not on filedocumented in this encounter Care Teams Assistant Secretary Relationship Specialty Start Date End Date Perry Romero MD [address] [facility] [address] [place] [address] PCP - General Internal Medicine 02/23/20 Leonidas Carroll MD Oil Field Technician Cardiology 05/23/19 Love Jones, PT Physical Therapist Physical Therapy 09/28/22 Arthur Bateman MD [address] [facility] [address] [place] [address] Referring Physician Anesthesiology 09/28/22 Karl Cha MD [address] [place] [address] Referring Physician Orthopedic Surgery 11/24/23 documented as of this encounter
--- OUTSIDE RECORDS SUMMARY | 2024-07-06 14:55 | XMS_ITS | Clinical Summary ---
Author Organization [facility] Address [address] [place] [address] Phone Care Team Providers Care Cna Name Role Phone Provider, None Primary Care Provider Unavailabl e Allergies No known active allergies Medications ALPRAZolam (XANAX) 1 MG Tablet Take 1 mg by mouth daily. Active aspirin EC 81 MG Tablet Delayed Response Take 81 mg by mouth. Active ezetimibe (ZETIA) 10 MG Tablet Take 10 mg by mouth. 0 Active fenofibrate (TRICOR) 145 MG Tablet TAKE ONE TABLET DAILY 0 Active fluvoxaMINE (LUVOX) 100 MG Tablet Take 100 mg by mouth. Active lisinopril (PRINIVIL, ZESTRIL) 5 MG Tablet TAKE ONE TABLET DAILY 0 Active metFORMIN (GLUCOPHAGE) 1000 MG Tablet Take 1,000 mg by mouth daily. Active clopidogrel (PLAVIX) 75 MG Tablet TAKE 1 TABLET DAILY 9 Active tamsulosin (FLOMAX) 0.4 MG CapsuleIndicati ons:BPH with obstruction/low er urinary tract symptoms Take 2 Caps by mouth daily. 90 Cap 3 0 Active finasteride (PROSCAR) 5 MG TabletIndicatio ns:BPH with obstruction/low er urinary tract symptoms Take 1 Tab by mouth daily. 30 Tab 0 Active Additional Information Patient not taking.Reported on 02/15/2020 metoprolol Succinate (TOPROL-XL) 50 MG TABLET SR 24 HR Take 50 mg by mouth. 9 Active HYDROcodone-makayla taminophen (NORCO) 5-325 MG Tablet Take 1-2 Tabs by mouth every 4 hours as needed for Moderate or more severe pain. 15 Tab 0 Active traMADol (ULTRAM) 50 MG Tablet Take 1 Tab by mouth every 6 hours as needed for Moderate or more severe pain. 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 Family History Medical History Relation Name Comments Cancer Father brain Chronic Obstructive Pulmonary Disease Mother Heart Attack Mother Relation Name Status Comments Father Mother Social History Tobacco Use Types Packs/Day Years Used Date Smoking Tobacco: Former Smokeless Tobacco: Never Tobacco Cessation:Counseling Given: No Alcohol Use Standard Drinks/Week Comments Not Currently [...] Sign Reading Time Taken Comments Blood Pressure 103/47 02/24/2020 7:00 AM CDT Pulse 70 02/24/2020 7:00 AM CDT Temperature 37.1 ??C (98.7 ??F) 02/24/2020 7:00 AM CD T Respiratory Rate 20 02/24/2020 7:00 AM CDT Oxygen Saturation 96% 02/24/2020 8:25 AM CDT Inhaled Oxygen Concentration - - Weight 103.4 kg (228 lb) 02/23/2020 6:18 AM CDT Height 180.3 cm (5' 11 ) 02/23/2020 6:18 AM CDT Body Mass Index 31.8 02/23/2020 6:18 AM CDT Plan of Treatment Health Maintenance Due Date Last Done Comments Hepatitis C Virus (HCV) Screening 1955 TdaP Immunization 1955 Colonoscopy 2000 Colorectal Cancer Screening 2000 Cologuard 2005 Immunochemical Fecal Occult Blood 2005 Pneumococcal Immunization (50+ years) (1 of 1 - PCV) 2005 Zoster Immunization (1 of 2) 2005 Respiratory Syncytial Virus (RSV) Immunization (Adult) (1 - Risk 60-74 years 1-dose series) 2015 Influenza Immunization (#1) 02/13/202408/2017, 08/05/2017, 03/14/2013, Additional history exists SARS-COV-2 Immunization ( season) 2024 06/19/2021, 09/06/2020, 08/09/2020 Hepatitis B Immunization Aged Out No longer eligible based on patient's age to complete this topic Meningococcal Immunization (ACWY) Aged Out No longer eligible based on patient's age to complete this topic Rotavirus Immunization Aged Out No lo nger eligible based on patient's age to complete this topic Insurance MEDICARE [facility] Care Teams Cna Relationship Specialty Start Date End Date Provider, None [place] PCP - General 02/20/20
--- OUTSIDE RECORDS SUMMARY | 2024-07-06 14:55 | XMS_ITS | Patient Health Record ---
Author Organization 1 OF Chichi rojas [facility] Address [address] [facility] [address] [place] [address] Care Team Providers Care [employer] Principal Name Role Phone Perry Romero MD Primary Care Provider Unavailab [facility] [phone] Reason For Referral No Information Medications Medication SIG (Take, Route, Frequency, Duration) Notes Start Date End Date Status amLODIPine Besylate 2.5 MG Oral for 90 Days Active busPIRone HCl 30 MG Oral for 30 Days Active HYDROcodone-Acetaminophen 5-325 MG Oral for 7 Days Active oxyBUTYnin Chloride ER 10 MG Oral for 90 Days Active Cyclobenzaprine HCl 10 MG Oral for 30 Days Active metFORMIN HCl 1000 MG Oral for 90 Days Active Gabapentin 100 MG Oral for 30 Days Active Escitalopram Oxalate 20 MG Oral for 30 Days Active Clopidogrel Bisulfate 75 MG Oral for 90 Days Active Lisinopril 10 MG Oral for 90 Days Active LORazepam 1 MG Oral for 30 Days Active ALPRAZolam 1 MG Oral for 30 Days Active fluvoxaMINE Maleate 100 MG TAKE 1 TABLET BY MOUTH TWICE DAILY Oral for 30 Days Active Finasteride 5 MG Oral for 90 Days Active Fenofibrate 145 MG Oral for 90 Days Active Metoprolol Tartrate 25 MG Oral for 90 Days Active fluvoxaMINE Maleate 100 MG Oral for 30 Days Active Pantoprazole Sodium 40 MG TAKE 1 TABLET BY MOUTH EVERY MORNING 30 MINUTES BEFORE FIRST MEAL OF THE DAY Oral for 90 Days Active Nitroglycerin 0.4 MG Sublingual for 30 Days Active Ezetimibe 10 MG Oral for 90 Days Active Vital Signs Height 71 in 09/28/2023 Encounters Encounter Location Date Provider Diagnosis 1 OF Chichi Carmona [facility] [address] [address] 09/28/2023 Rio Gladis Metatarsalgia, right foot M77.41 ; Gastrocnemius equinus, right M62.461 and Right foot pain M79.671 1 OF Chichi Carmona [facility] [address] [address] 10/15/2023 Rio Griffith Assessments Encounter Date Diagnosis (ICD Code) Assessment [...] sooner should problems arise Plan Of Treatment No Information Insurance Providers Payer Name Payer Address Payer Phone Subscriber Number Group Number Insured Name Patient Relationship to Insured Coverage Start Date Coverage End Date Medicare [address] [place], [place] [id number] Deacon Youssef Self - patient is the insured Blue Cross and Blue [facility] [address] [address] [place], [place] [id number] Deacon Youssef Self - patient is the insured Medical (General) History Medical History History ICD Code anxiety disorder, heart aayush ck, heart failure, pacemaker, high blood pressure
== END 2024-07-03 22:51 | disposition home or self-care (01) ==
PROVIDERS: Registered Nurse; Emergency Provider Emergency Medicine; PCP Internal Medicine
DX: R31.9 Hematuria, unspecified (principal); R33.9 Retention of urine, unspecified; I25.2 Old myocardial infarction; I51.9 Heart disease, unspecified; I99.9 Unspecified disorder of circulatory system; M17.0 Bilateral primary osteoarthritis of knee; Z79.899 Other long term (current) drug therapy; Z79.02 Long term (current) use of antithrombotics/antiplatelets; Z95.5 Presence of coronary angioplasty implant and graft; Z95.0 Presence of cardiac pacemaker; Z87.891 Personal history of nicotine dependence
CPT/HCPCS: 36415; 51702; 74177; 80053; 83690; 84484; 85025; 85610; 85730; 87086; 93005; 96361; 96374; 96375; 99284; J2270; J2405; J7030; Q9967

== ENCOUNTER 2024-08-08 13:45 | Outpatient (RCR) | payer MEDICARE, SELFPAY ==
--- NOTE | 2024-05-10 15:16 | OPREHPOC ---
Outpatient Therapy Plan of Care This is a Multidisciplinary Plan of Care that may contain components documented by all disciplines (PT, OT, and ST.) PT Problem 1 PT Problem #1 Knowledge Deficit PT Goal 1 Goal / Goal Update [place] with HEP Target Visit 4 PT Goal 2 Goal / Goal Update Report no pain greater than 1/10 for 2 consecutive weeks Target Visit 8 PT Problem 2 PT Problem #2 Impaired Range of Motion PT Goal 1 Goal / Goal Update Achieve 125 degrees of left knee flexion ROM to return to functional squatting and foot clearance Target Visit 8 PT Problem 3 PT Problem #3 Impaired Gait PT Goal 1 Goal / Goal Update Ambulate with even stride length bilaterally Target Visit 8 PT Problem 4 PT Problem #4 Impaired Strength PT Goal 1 Goal / Goal Update 1. Improve Knee extension strength to 5/5 to improve stability of knee 2. Improve Left knee flexion strength to 4+/5 to improve knee stability Target Visit 8 PT Goal 2 Goal / Goal Update Improve left hip flexion strength to 5/5 to improve foot clearance with gait and stair navigation Target Visit 8
--- NOTE | 2024-05-10 15:17 | PTOPEVAL1 ---
Assessment and note entered by Gautam Lacy, PT Evaluation Information Assessment Status Evaluation Diagnosis S/P TKA L LE ICD-10 Condition Codes (PT) Pain in left knee M25.562 Onset 04/24/24 Subjective Information Reports that overall he is feeling pretty good. He had to do stairs yesterday which has increased his pain today. Comes in at about an 8. Not sleeping will. He is having combination pain of position and has prostate issue un which he has to get u about every hour and a half. Reported Pain Level Pain Score 7: Self Report Assessment PT Clinical Summary Patient presents with signs and symptoms typical of TKA with limitations in knee ROM, strength, and gait. Patient appears to be doing well in his timeframe with motion and will benefit form skilled therapy to continue to address deficits for gait mechanics, strength, and ADL performance moving forward. Plan of Care Interventions Gait Training,Manual Therapy,Neuro Re-education, Therapeutic Activities,Therapeutic Exercise PT Services Indicated Yes Treatment Frequency and 1-2x/week for 8 visits Duration These treatments will address the objective and functional deficits as defined above. The patient will be advanced safely and appropriately in order for the patient to progress towards his/her prior level of function. Additional exercises will be introduced and as well as a comprehensive home exercise program upon discharge, if needed, ?to ensure carryover of functional gains achieved in the clinic. This treatment plan has been reviewed and agreement upon by the patient.
--- NOTE | 2024-06-30 14:28 | OPREHPOC ---
Outpatient Therapy Plan of Care This is a Multidisciplinary Plan of Care that may contain components documented by all disciplines (PT, OT, and ST.) PT Problem 1 PT Problem #1 Knowledge Deficit PT Goal 1 Goal / Goal Update Sanders with HEP Target Visit 4 Progress Partially Met PT Goal 2 Goal / Goal Update Report no pain greater than 1/10 for 2 consecutive weeks Target Visit 15 Progress Partially Met PT Problem 2 PT Problem #2 Impaired Range of Motion PT Goal 1 Goal / Goal Update Achieve 125 degrees of left knee flexion ROM to return to functional squatting and foot clearance Target Visit 15 Progress Partially Met PT Problem 3 PT Problem #3 Impaired Gait PT Goal 1 Goal / Goal Update Ambulate with even stride length bilaterally Target Visit 15 Progress Partially Met PT Problem 4 PT Problem #4 Impaired Strength PT Goal 1 Goal / Goal Update 1. Improve Knee extension strength to 5/5 to improve stability of knee 2. Improve Left knee flexion strength to 4+/5 to improve knee stability Target Visit 15 Progress Partially Met PT Goal 2 Goal / Goal Update Improve left hip flexion strength to 5/5 to improve foot clearance with gait and stair navigation Target Visit 15 Progress Partially Met
--- NOTE | 2024-06-30 14:28 | PTOPPROG ---
Assessment and note entered by Gautam Lacy, PT Evaluation Information Assessment Status Progress Diagnosis S/P TKA L LE ICD-10 Condition Codes (PT) Pain in left knee M25.562 Onset 04/24/24 Subjective Information Reports that he has been on an antibiotic regimen following light infection ion the knee. He has also had bladder surgery since he was of from therapy. Reports that the motion is fair and the pain is mostly controlled. He has still bee struggling with stairs and he has been going one at a time to accommodate. He has some stiffness when initiating walking or when he first gets up in the morning. Assessment PT Clinical Summary Patient has sown some improvement since last evaluation. He continues to have weakness noted in quad and glutes and will benefit from continuation of therapy to address these deficits for jail functional ability. HE is currently also enrolled in cardiac rehab which should help with endurance issues and supplement functional hip and knee motion. Plan of Care Interventions Gait Training,Manual Therapy,Neuro Re-education, Therapeutic Activities,Therapeutic Exercise PT Services Indicated Yes Treatment Frequency and 1x/week for 8 visits Duration These treatments will address the objective and functional deficits as defined above. The patient will be advanced safely and appropriately in order for the patient to progress towards his/her prior level of function. Additional exercises will be introduced and as well as a comprehensive home exercise program upon discharge, if needed, ?to ensure carryover of functional gains achieved in the clinic. This treatment plan has been reviewed and agreement upon by the patient.
--- NOTE | 2024-07-04 14:02 | PCPTNOTE ---
Patient canceled this date due to having other medical concerns that he wanted to go see MD for.
== END 2024-08-08 23:59 | disposition home or self-care (01) ==
LOC: ANHGOSHPT 13:45
PROVIDERS: PCP Internal Medicine
DX: M25.562 Pain in left knee (principal); G89.29 Other chronic pain
CPT/HCPCS: 97016; 97110; 97140; 97161; 97530

== ENCOUNTER 2024-08-29 13:30 | Outpatient (RCR) | payer MEDICARE, SELFPAY ==
--- NOTE | 2024-08-15 09:14 | PCPTNOTE ---
Patient called to cancel due to personal reasons and did not want to reschedule.
--- NOTE | 2024-08-29 14:11 | OPREHPOC ---
Outpatient Therapy Plan of Care This is a Multidisciplinary Plan of Care that may contain components documented by all disciplines (PT, OT, and ST.) PT Problem 1 PT Problem #1 Knowledge Deficit PT Goal 1 Goal / Goal Update [place] with HEP Target Visit 4 Progress Met PT Goal 2 Goal / Goal Update Report no pain greater than 1/10 for 2 consecutive weeks Target Visit 15 Progress Met PT Problem 2 PT Problem #2 Impaired Range of Motion PT Goal 1 Goal / Goal Update Achieve 125 degrees of left knee flexion ROM to return to functional squatting and foot clearance Target Visit 15 Progress Met PT Problem 3 PT Problem #3 Impaired Gait PT Goal 1 Goal / Goal Update Ambulate with even stride length bilaterally Target Visit 15 Progress Met PT Problem 4 PT Problem #4 Impaired Strength PT Goal 1 Goal / Goal Update 1. Improve Knee extension strength to 5/5 to improve stability of knee 2. Improve Left knee flexion strength to 4+/5 to improve knee stability Target Visit 15 Progress Met PT Goal 2 Goal / Goal Update Improve left hip flexion strength to 5/5 to improve foot clearance with gait and stair navigation Target Visit 15 Progress Partially Met
--- NOTE | 2024-08-29 14:11 | PTOPDC ---
Assessment and note entered by Gautam Lacy, PT Evaluation Information Assessment Status Discharge Diagnosis S/P TKA L LE ICD-10 Condition Codes (PT) Pain in left knee M25.562 Onset 04/24/24 Subjective Information Reports that overall he feels he is doing very well. Reports that pain is controlled and he is doing well once he gets going. No concerns with HEP at this time. Reported Pain Level Pain Score 0: Self Report Assessment PT Clinical Summary Patient met all goals for therapy at this time and is suitable for discharge to HEP. Patient demonstrates some continue hip weakness which he will continue to promote strengthening through reviewed HEP. Plan of Care PT Services Indicated Yes
--- NOTE | 2024-10-09 14:37 | PTOPDC ---
Assessment and note entered by Jan Flowers, PT, DPT Evaluation Information Assessment Status Discharge Diagnosis S/P TKA L LE ICD-10 Condition Codes (PT) Pain in left knee M25.562 Onset 04/24/24 Subjective Information Reports that overall he feels he is doing very well. Reports that pain is controlled and he is doing well once he gets going. No concerns with HEP at this time. Assessment PT Clinical Summary Patient met all goals for therapy at this time and is suitable for discharge to [facility]. Patient demonstrates some continue hip weakness which he will continue to promote strengthening through reviewed HEP.
== END 2024-10-10 09:34 | disposition home or self-care (01) ==
LOC: ANHGOSHPT 13:30
PROVIDERS: PCP Internal Medicine
DX: M25.562 Pain in left knee (principal); G89.29 Other chronic pain
CPT/HCPCS: 97016; 97110; 97530

== ENCOUNTER 2024-10-31 12:32 | Emergency (ER) | payer MEDICARE, SELFPAY ==
--- NOTE | ~2024-10-31 | XR_ITS ---
XR foot RT min 3V Ordering provider: Derrick Sarabia MD History: . pain, horse stepped on rt foot Wednesday, . Comparison: None. FINDINGS: BONES: No acute fracture or dislocation. Fusion of the first metatarsophalangeal joint. Postoperative changes in the distal second metatarsal bone. Old healed fracture in the distal metaphysis of the pr oximal phalanx of the little toe. JOINT SPACES: Narrowing of the distal interphalangeal joints. No tarsal coalition. SOFT TISSUES: Normal. IMPRESSION: No acute osseous abnormality of the right foot. Reviewed, dictated and finalized at location A.
--- OUTSIDE RECORDS SUMMARY | 2024-10-31 12:35 | XMS_ITS | Encounter Summary ---
Author Organization [facility] Address [address] [place] [address] Phone Care Team Providers Care Director Of Cath Lab Name Role Phone Leonidas Carroll MD Unavailable [phone] Perry Romero MD Primary Care Provider Love Jones PT Unavailable Unavailab Arthur Law MD Unavailable Karl Cha MD Unavailable [phone] Encounter Details Date Type Department Care Team (Late st Contact Info) Description 10/03/2024 Results Follow-Up [facility] Cardiology [address] [facility] Advanced Medicine 8th [place] [address] [place] [address] Leonidas Carroll MD [address] [facility] [place], [place] [id number] CBC with auto differential, Basic metabolic panel Social History Tobacco Use Types Packs/Day Years [...] often do you attend chur ch or yarsani services? 1 to 4 times per year 05/02/2021 Do you belong to any clubs o r organizations such as islam groups, unions, fraternal or athletic groups, or school groups? No 05/02/2021 How often do you attend meet ings of the clubs or organizations you belong to? Never 05/02/2021 Are you , , di vorced, , never , or living with a partner? 05/02/2021 AUDIT-C Answer Date Recorded Q1: How often do you have a drink containing alcohol? Never 08/10/2024 Q2: How many drinks containi ng alcohol do you have on a typical day when you are drinking? Patient does not drink Q3: How often do you have si x or more drinks on one occasion? 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 documented in this encounter Plan of Treatment Not on file documented as of this encounter Goals Goal Patient Goal Type Associated Problems Recent Progress Patient-Stated? Author CCM Chronic Pain Care Plan Chronic Care Management No change(08/10 10:32 AM TECHNICAL SOLUTIONS ENGINEER) No Brissa Muse RN Note: Problem: Chronic Pain Goals: 1. Minimize further functional decline 2. Maximize quality of life 3. Control pain Strategies: - Activity/exercise program recommendation - Conservative stepwise pain medicine strategy with multi-disciplinary approach - Recommend healthy lifestyle strategies and compensatory methods as needed documented as of this encounter Visit Diagnoses Not on filedocumented in this encounter Care Teams Director Of Cath Lab Relationship Specialty Start Date End Date Perry Romero MD PCP - General Internal Medicine 02/23/20 Leonidas Carroll MD Chromium Plater Cardiology 05/23/19 Love Jones, PT Physical Therapist Physical Therapy 09/28/22 Arthur Bateman MD [address] [address] Referring Physician Anesthesiology 09/28/22 Karl Cha MD [address] [place] [address] Referring Physician Orthopedic Surgery 11/24/23 documented as of this encounter
--- OUTSIDE RECORDS SUMMARY | 2024-10-31 12:35 | XMS_ITS | Encounter Summary ---
Author Organization [facility] [place] [facility] Address [address] [place] [address] Phone Care Team Providers Care Airplane Pilot Helper Name Role Phone Leonidas Carroll MD Unavailable [phone] Perry Romero MD Primary Care Provider [phone] Love Jones PT Unavailable Unavailab Arthur Law MD Unavailable Karl Cha MD Unavailable [phone] Encounter Details Date Type Department Care Team (Latest Contact Info) Description 10/16/2024 Results Follow-Up [facility] Cardiology [address] [facility] Advanced Medicine 8th [place] [address] [place] [address] Leonidas Carroll MD [address] [facility] [address] [place] [address] Cardiac Catheterization Social History Tobacco Use Types Packs/Day Years [...] week 05/02/2021 How often do you attend [facility] or catholic services? 1 to 4 times per year [...] you have a drink containing alcohol? Never 10/16/2024 Q2: How many drinks containi ng alcohol do you have on a typical day when you are drinking? Patient does not drink Q3: How often do you have si x or more drinks on one occasion? Never 10/16/2024 Overall Financial Resource Strain (CARDIA) Answe r [...] making you feel afraid or unsafe? 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 Never 10/16/2024 9:08 AM CANDACET Yair Ruiz RN Q2: How many drinks containing alcohol do you have on a typical day when you are drinking? Patient does not drink 10/16/2024 9:08 AM CANDACET Rosnaa Ruiz RN Q3: How often do you have six or more drinks on one occasion? Never 10/16/2024 9:08 AM CANDACET Yair Ruiz RN documented as of this encounter Plan of Treatment Not on file documented as of this encounter Goals Goal Patient Goal Type Associated Problems Recent Progress Patient-Stated? Author CCM Chronic Pain Care Plan Chronic Care Management No change(08/10 10:32 AM TRADE RECRUITER) No Brissa Muse RN Note: Problem: Chronic Pain Goals: 1. Minimize further functional decline 2. Maximize quality of life 3. Control pain Strategies: - Activity/exercise program recommendation - Conservative stepwise pain medicine strategy with multi-disciplinary approach - Recommend healthy lifestyle strategies and compensatory methods as needed documented as of this encounter Results * Basic metabolic panel (10/18/2024 10:10 AM CDT) Sodium 137 135 - 145 mmol/L Potassium, pl 4.3 3.3 - 4.9 mmol/L [facility] Chloride 101 97 - 110 mmol/L [facility] CO2 22 22 - 32 mmol/L [facility] Anion gap 14 2 - 15 mmol/L [facility] BUN 18 6 - 25 mg/dL [facility] Creatinine 1.14 0.80 - 1.30 mg/dL [facility] Glucose 130 70 - 199 mg/dL CERNER Comment: Interpretive Data Fasting glucose >/= 126 mg/dl is diagnostic for diabetes. Fasting is defined as no caloric intake [...] interpretive data was last revised 2022. Calcium 10.0 8.5 - 10.3 mg/dL YVROSE HENRY Blood 10/18/2024 10:1 0 AM CDT 10/18/2024 3:54 PM CDT Leonidas Carroll MD LAB BLOOD ORDERABLES F inal Result [facility] [address] [address] [place] [address] documented in this encounter Visit Diagnoses Diagnosis High risk medications (not anticoagulants) long-term use- Primary Encounter for long-term (current) use of other medications documented in this encounter Care Teams Airplane Pilot Helper Relationship Specialty Start Date End Date Perry Romero MD PCP - General Internal Medicine 02/23/20 Leonidas Carroll MD Basket Operator Cardiology 05/23/19 Love Jones, PT Physical Therapist Physical Therapy 09/28/22 Arthur Bateman MD [address] [address] Referring Physician Anesthesiology 09/28/22 Karl Cha MD [address] [place] [address] Referring Physician Orthopedic Surgery 11/24/23 documented as of this encounter
--- OUTSIDE RECORDS SUMMARY | 2024-10-31 12:35 | XMS_ITS | Encounter Summary ---
Author Organization [facility] Address [address] [place] [address] Phone Care Team Providers Care Roll Forming Machine Set Up Mechanic Name Role Phone Leonidas Carroll MD Unavailable [phone] Perry Romero MD Primary Care Provider Love Jones PT Unavailable Unavailab Arthur Law MD Unavailable Karl Cha MD Unavailable [phone] Encounter Details Date Type Department Care Team (Late st Contact Info) Description 10/03/2024 Results Follow-Up [facility] Cardiology [address] [facility] Advanced Medicine 8th [place] [address] [place] [address] Leonidas Carroll MD [address] [facility] [address] [place] [address] Pro B-type natriuretic peptide Social History Tobacco Use Types Packs/Day Years [...] week 05/02/2021 How often do you attend [facility] or taoism services? 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 He can be reached at [phone]. * Result Encounter Note - Leonidas Carroll MD - 10/03/2024 4:31 PM CDT Tell patient normal results. documented in this encounter Plan of Treatment Not on file documented as of this encounter Goals Goal Patient Goal Type Associated Problems Recent Progress Patient-Stated? Author CCM Chronic Pain Care Plan Chronic Care Management No change(08/10 10:32 AM TOOL CRIB CLERK) No Brissa Muse RN Note: Problem: Chronic Pain Goals: 1. Minimize further functional decline 2. Maximize quality of life 3. Control pain Strategies: - Activity/exercise program recommendation - Conservative stepwise pain medicine strategy with multi-disciplinary approach - Recommend healthy lifestyle strategies and compensatory methods as needed documented as of this encounter Visit Diagnoses Not on filedocumented in this encounter Care Teams Roll Forming Machine Set Up Mechanic Relationship Specialty Start Date End Date Perry Romero MD PCP - General Internal Medicine 02/23/20 Leonidas Carroll MD Application Technician Cardiology 05/23/19 Love Jones PT Physical Therapist Physical Therapy 09/28/22 Arthur Bateman MD [address] [address] Referring Physician Anesthesiology 09/28/22 Karl Cha MD [address] [place] [address] Referring Physician Orthopedic Surgery 11/24/23 documented as of this encounter
--- OUTSIDE RECORDS SUMMARY | 2024-10-31 12:36 | XMS_ITS | Encounter Summary ---
Author Organization [facility] Address [address] [place] [address] Phone Care Team Providers Care Housetrailer Servicer Name Role Phone Tim Sanchez MD Primary Care Provider [phone] Lina Mcadams MD Primary Care Provide r Deacon Eisenberg DO Primary Care Provider [phone] Loenidas Carroll MD Unavailable [phone] Perry Romero MD Primary Care Provider [phone] Love Jones PT Unavailable Unavailab Arthur Law MD Unavailable Karl Cha MD Unavailable [phone] Encounter Details Date Type Department Care Team (Late st Contact Info) Description 11/24/2015 Orders Only [facility] ProviderHeena MD [address] [place] [address] Social History Tobacco Use Types Packs/Day Years Used Date Smoking Tobacco: Never Assessed Sex and Gender Information Value Date Recorded Sex Assigned at Not on file 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 [address] [place] [address] PCP - General 01/14/18 11/21/18 Deacon Eisenberg DO [address] [facility] [address] [place] [address] PCP - General 11/22/18 02/22/20 Perry Romero MD [address] [address] PCP - General Internal Medicine 02/23/20 Leonidas Carroll MD [address] [facility] [address] [place] [address] Product Evangelist Cardiology 05/23/19 Love Jones, PT Physical Therapist Physical Therapy 09/28/22 Arthur Bateman MD [address] [facility] [address] [place] [address] Referring Physician Anesthesiology 09/28/22 Karl Cha MD [address] [facility] [address] [place] [address] Referring Physician Orthopedic Surgery 11/24/23 documented as of this encounter
--- OUTSIDE RECORDS SUMMARY | 2024-10-31 12:36 | XMS_ITS | Encounter Summary ---
Author Organization [facility] [place] [facility] Address [address] [place] [address] Phone Care Team Providers Care Medical Asst Name Role Phone Tim Sanchez MD Primary Care Provider [phone] Lina Mcadams MD Primary Care Provide r Deacon Eisenberg DO Primary Care Provider [phone] Leonidas Carroll MD Unavailable [phone] Perry Romero MD Primary Care Provider [phone] Love Jones PT Unavailable Unavailab Arthur Law MD Unavailable Karl Cha MD Unavailable [phone] Encounter Details Date Type Department Care Team (Latest Contact Info) Description 03/05/2017 Orders Only [facility] CONVERSION Scanning, Provider Social History Tobacco Use Types Packs/Day Years Used Date Smoking Tobacco: Never Assessed Sex and Gender Information Value Date Recorded Sex Assigned at Not on file Legal Sex Male 11:34 PM DIRECTOR OF INSTITUTIONAL GIVING Gender Identity Not on file Sexual Orientation [...] on filedocumented in this encounter Care Teams Medical Asst Relationship Specialty Start Date End Date Tim Snachez MD [address] [place] [address] PCP - General 09/29/16 01/13/18 Lina Mcadams MD [address] [facility] [address] [place] [address] PCP - General 01/14/18 11/21/18 Deacon Eisenberg DO [address] [address] PCP - General 11/22/18 02/22/20 Perry Romero MD [address] [address] PCP - General Internal Medicine 02/23/20 Leonidas Carroll MD [address] [address] [employer]inder [employer] Plant Cardiology 05/23/19 Love Jones, PT Physical Therapist Physical Therapy 09/28/22 Arthur Bateman MD [address] [address] Referring Physician Anesthesiology 09/28/22 Karl Cha MD [address] [facility] [address] [place] [address] Referring Physician Orthopedic Surgery 11/24/23 documented as of this encounter
--- OUTSIDE RECORDS SUMMARY | 2024-10-31 12:36 | XMS_ITS | Encounter Summary ---
Author Organization [facility] Address [address] [place] [address] Phone Care Team Providers Care Icu Clerk Name Role Phone Leonidas Carroll MD Unavailable [phone] Perry Romero MD Primary Care Provider [phone] Love Jones PT Unavailable Unavailab Arthur Law MD Unavailable Karl Cha MD Unavailable [phone] Encounter Details Date Type Department Care [...] on file Legal Sex Male 11:34 PM CS ASSOCIATE Gender Identity Not on file Sexual Orientation [...] on filedocumented in this encounter Care Teams Icu Clerk Relationship Specialty Start Date End Date Perry Romero MD PCP - General Internal Medicine 02/23/20 Leonidas Carroll MD Planer Operator / Grader Cardiology 05/23/19 Love Jones, PT Physical Therapist Physical Therapy 09/28/22 Arthur Bateman MD [address] [address] Referring Physician Anesthesiology 09/28/22 Karl Cha MD [address] [place] [address] Referring Physician Orthopedic Surgery 11/24/23 documented as of this encounter
--- OUTSIDE RECORDS SUMMARY | 2024-10-31 12:36 | XMS_ITS | Clinical Summary ---
Author Organization [facility] Address [address] [place] [address] Phone Care Team Providers Care Infection Control Rn Name Role Phone Provider, None Primary Care [...] 70 02/24/2020 7:00 AM CDT Temperature 37.1 C (98.7 F) 02/24/2020 7:00 AM CDT Respiratory Rate 20 02/24/2020 7:00 AM CDT [...] age to complete this topic Insurance MEDICARE [facility] Care Teams Infection Control Rn Relationship Specialty Start Date End Date Provider, None [place] PCP - General 02/20/20
--- OUTSIDE RECORDS SUMMARY | 2024-10-31 12:36 | XMS_ITS | Encounter Summary ---
Author Organization [facility] Address [address] [place] [address] Phone Care Team Providers Care Commercial Production Editor Name Role Phone Tim Sanchez MD Primary Care Provider [phone] Lina Mcadams MD Primary Care Provide r Deacon Eisenberg DO Primary Care Provider [phone] Leonidas Carroll MD Unavailable [phone] Perry Romero MD Primary Care Provider [phone] Love Jones PT Unavailable Unavailab Arthur Law MD Unavailable Karl Cha MD Unavailable [phone] Encounter Details Date Type Department Care Team (Late st Contact Info) Description 09/15/2016 Orders Only [facility] ProviderHeena MD [address] [place] [address] Social History Tobacco Use Types Packs/Day Years Used Date Smoking Tobacco: Never Assessed Sex and Gender Information Value Date Recorded Sex Assigned at Not on file 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 Gender Identity Not on file Sexual Orientation [...] on filedocumented in this encounter Care Teams Commercial Production Editor Relationship Specialty Start Date End Date Tim Sanchez MD [address] [facility] [address] [place] [address] PCP - General 09/29/16 01/13/18 Lina Mcadams MD [address] [facility] [address] [place] [address] PCP - General 01/14/18 11/21/18 Deacon Eisenberg DO [address] [facility] [address] [place] [address] PCP - General 11/22/18 02/22/20 Perry Romero MD [address] [address] PCP - General Internal Medicine 02/23/20 Leonidas Carroll MD [address] [facility] [address] [place] [address] Centrifugal Extractor Operator Cardiology 05/23/19 Love Jones, PT Physical Therapist Physical Therapy 09/28/22 Arthur Bateman MD [address] [facility] [address] [place] [address] Referring Physician Anesthesiology 09/28/22 Karl Cha MD [address] [facility] [address] [place] [address] Referring Physician Orthopedic Surgery 11/24/23 documented as of this encounter
--- OUTSIDE RECORDS SUMMARY | 2024-10-31 12:36 | XMS_ITS ---
Author Organization [facility] Address [address] [facility] [address] [address] Care Team Providers Care Inverted Block Operator Name Role Phone Perry Romero MD Primary Care Provider Unavailab La Navarro Unavailable [phone] Esa Flores Unavailable [phone] REASON FOR VISIT MCI Social History Sex Assigned At : Social History Observation Description Sex Assigned At Male Encounters Encounter Location Date Provider Diagnosis [facility], Part of Active Network [facility] [address] [facility] [address] [address] 09/11/2024 Esa Flores Plan Of Treatment Next Appt Details Provider Name:[place] , 01/08/2025 09:45:00 AM, [address], [facility] [address], [place], [address], Progress Notes * VICKY ACEVEDODOB: (69 yo M)Acc No.[id number]:09/11/2024 Patient: VICKY TORREZ Provider: Basil FLORES MD :1955 A ge:69 Y S ex:Male Date:09/11/2024 Address:[address] [facility] Pcp:Perry Romero MD Subjective: * Chief Complaints: * 1 . MCI. * Active Problem List F34.1 Dysthymic disorder Onset Date:10/13/2023Modified On:11/30/2023W/U Status:confirmed F33.9 Major depressive dis order, recurrent, unspecified Onset Date:10/13/2023Modified On:11/30/2023 Status:confirmed F41.0 Panic disorder [epis odic paroxysmal anxiety] without agoraphobia Onset Date:09/22/2023Modified On:08/04/2024 Status:confirmed F41.1 MALI (generalized anx iety disorder) Modified On:08/04/2024 Status:confirmed G31.84 Mild cognitive impai rment Modified On:08/04/2024 Status:confirmed F51.01 Primary insomnia Modified On:08/04/2024 Status:confirmed Z13.6 Encounter for screen ing for cardiovascular disorders Modified On:08/25/2024 Status:confirmed Z71.3 Dietary counseling a nd surveillance Modified On:08/25/2024 Status:confirmed Z13.31 Encounter for screen ing for depression Modified On:08/25/2024 Status:confirmed F33.1 MDD (major depressiv e disorder), recurrent episode, moderate Modified On:08/25/2024 Status:confirmed * Medical History: Objective: * Vitals: Assessment: Plan: * Treatment: * Billing Information: * Visit Code: * Procedure Codes: * Electronic signature of Byron Flores MD on 10/31/2024 at 12:35 PM CDT Sign off status: Pending * Provider: Basil FLORES MD Date: 09/11/2024 Generated for Humberto hayes/Vanda/Lorenzoitting on: 10/31/2024 12:35 PM CDT
--- OUTSIDE RECORDS SUMMARY | 2024-10-31 12:36 | XMS_ITS ---
Author Organization [facility] Address [address] [place] [address] Care Team Providers Care Fisher Terrapin Name Role Phone Nick QUINONES, Perry Primary Care Provider [facility] [phone] REASON FOR VISIT fitting Encounters Encounter Location Date Provider Diagnosis [facility] [address] [address] 10/26/2023 Rio Griffith Plan Of Treatment No Information Progress Notes * Deacon YOUSSEFDOB: (69 yo M)Acc No.[id number]:10/26/2023 Progress Notes Patient: Deacon TORREZ Provider: Triston Griffith DPM :1955 A ge:68 Y S ex:Male Date:10/26/2023 Address:[address] [place] [id number] Pcp:Perry Romero MD Subjective: * Chief Complaints: * 1 . Fitting. * Medical History: Objective: * Vitals: Assessment: Plan: * Treatment: * Images: * Electronic signature of Rio Griffith [facility] on 10/31/2024 at 12:36 PM CDT Sign off status: Pending * Provider: Triston [facility] Date: 10/26/2023 Generated for Printi ng/Faxing/eTransmitting on: 10/31/2024 12:36 PM CDT
--- OUTSIDE RECORDS SUMMARY | 2024-10-31 12:36 | XMS_ITS | Encounter Summary ---
Author Organization [facility] Address [address] [place] [address] Phone Care Team Providers Care Die Sinker Apprentice Name Role Phone Tim Sanchez MD Primary Care Provider Lina Mcadams MD Primary Care Provide r Deacon Eisenberg DO Primary Care Provider [phone] Leonidas Carroll MD Unavailable [phone] Perry Romero MD Primary Care Provider [phone] Love Jones PT Unavailable Unavailab Arthur Law MD Unavailable Karl Cha MD Unavailable [phone] Encounter Details Date Type Department Care Team (Late st Contact Info) Description 09/10/2015 Orders Only [facility] ProviderHeena MD [address] [place] [address] Social History Tobacco Use Types Packs/Day Years Used Date Smoking Tobacco: Never Assessed Sex and Gender Information Value Date Recorded Sex Assigned at Not on file 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 Gender Identity Not on file Sexual Orientation [...] on filedocumented in this encounter Care Teams Die Sinker Apprentice Relationship Specialty Start Date End Date Tim Sanchez MD [address] [facility] [address] [place] [address] PCP - General 09/29/16 01/13/18 Lina Mcadams MD [address] [facility] [address] [place] [address] PCP - General 01/14/18 11/21/18 Deacon Eisenberg DO [address] [facility] [address] [place] [address] PCP - General 11/22/18 02/22/20 Perry Romero MD [address] [address] PCP - General Internal Medicine 02/23/20 Leonidas Carroll MD [address] [facility] 15 [place] [address] Contracts Specialist Cardiology 05/23/19 Love Jones, PT Physical Therapist Physical Therapy 09/28/22 Arthur Bateman MD [address] [facility] [address] [place] [address] Referring Physician Anesthesiology 09/28/22 Karl Cha MD [address] [facility] [address] [place] [address] Referring Physician Orthopedic Surgery 11/24/23 documented as of this encounter
--- OUTSIDE RECORDS SUMMARY | 2024-10-31 12:36 | XMS_ITS | Clinical Summary ---
Author Organization [facility] Address [address] [place] [address] Care Team Providers Care Washateria Attendant Name Role Phone Tim Sanchez MD Primary Care Provider [phone] Source Comments [facility],non-owned Affiliates and Associated Physician Practices is amultiple site organization consisting of ambulatory clinics and hospital sitesin [place], [place], [place] and [place]. This disclosure is being madepursuant to the Care Everywhere program and may not contain all information available regarding this patient. Last updated 18.[facility] Allergies No known active allergies Medications * Be aware that medications may not be up to date on this document. Alwaysverify current medications with the patient. diazepam (VALIUM) 5 MG tablet Take 1 Tab by mouth 4 times daily as needed for Anxiety. 100 0 10/18/200 9 Active ezetimibe (ZETIA) 10 MG tablet Take [...] mg by mouth once daily Active Multiple Vitamins-Minera ls (EYE VITAMINS PO) Take 1 tablet by mouth 2 times daily Active metoprolol succinate XL 24hr (TOPROL XL) 12.5 TABS tablet Take 12.5 mg by mouth once daily Active amLODIPine (NORVASC) 2.5 MG tablet 0 Active baclofen (LIORESAL) 5 MG TABS 1 Active cyclobenzaprine (FLEXERIL) 10 MG tablet 0 Active fluvoxaMINE (LUVOX) 100 MG tablet 0 Active fenofibrate (TRICOR) 145 MG tablet 0 Active HYDROcodone-makayla taminophen (NORCO) 5-325 MG tablet Take 1-2 tablets by mouth 0 Active lisinopril (PRINIVIL;ZESTR IL) 5 MG tablet 0 Active methocarbamol (ROBAXIN) 500 MG tablet TK 2 TS PO QID 0 Active methylPREDNISol one (MEDROL DOSEPAK) 4 MG tablet 0 Active metroNIDAZOLE (METROGEL) 1 % gel 0 Active traMADol (ULTRAM) 50 MG tablet 0 Active predniSONE (DELTASONE) 20 MG tablet TK 1 T PO QD FOR 5 DAYS 0 Active amoxicillin (AMOXIL) 875 MG tablet amoxicillin 875 mg tablet TAKE 1 TABLET EVERY 12 HOURS UNTIL ALL TAKEN Active doxycycline hyclate (VIBRAMYCIN) 100 MG capsule 1 Active finasteride (PROSCAR) 5 MG tablet every 24 hours Activ e metoprolol tartrate (LOPRESSOR) 25 MG tablet metoprolol tartrate 25 mg tablet TAKE 1/2 TABLET TWICE DAILY (12.5 MG.) Active Active Problems Problem Noted Date Diagnosed Date Encounter for screening colonoscopy 10/14/2020 Overview (11/07/2020): Added automatically from request for surgery [id number] Rosacea 09/18/2020 Achilles tendon contracture, right 07/04/2020 Overview (11/07/2020): Added automatically from request for surgery [id number] Metatarsalgia of right foot 07/04/2020 Overview (11/07/2020): Added automatically from request for surgery [id number] Sesamoiditis 07/04/2020 Overview (11/07/2020): Added automatically from request for surgery [id number] Joint pain 02/28/2020 Overview (11/07/2020): Last Assessment & Plan: Medrol dose pack Tramadol Q6 PRN (use, safety, s/e reviewed) Referral to Pain Management BPH with obstruction/lower urinary tract symptom s 02/23/2020 Pseudarthrosis after fusion or arthrodesis 02/28 Overview (11/07/2020): Added automatically from request for surgery [id number] NSTEMI (non-ST elevated myocardial infarction) 0 11/22/2018 Overview (11/07/2020): Last Assessment & Plan: Patient presented to with chest pain, indigestion, PVCs, and rising troponin c/w NSTEMI. Transferred to [facility], s/p [facility] on 11/22. 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 Gender Identity Not on file Sexual Orientation Not on file Plan of Treatment Health Maintenance Due Date Last Done Comments COLOGUARD (AGES 45-75) - COLON CA SCREENING 1955 COLON MONITORING 1955 COLONOSCOPY - COLON CA SCREENING 1955 CT COLONOGRAPHY - COLON CA SCREENING 1955 Colorectal Cancer Screening 1955 FIT - COLON CA SCREENING 1955 FLEX SIG - COLON CA SCREENING 1955 MEDICARE AWV 12 MONTHS 1955 HEPATITIS C SCREENING 03/04/1973 DTAP/TDAP/TD VACCINES (1 - Tdap) 1974 PNEUMOCOCCAL VACCINE 50+ (1 of 2 - PCV) 1974 DIABETES-STATIN 1995 ZOSTER VACCINE (1 of 2) 2005 DIABETES-FOOT EXAM WITH MONOFILAMENT 12/14/2019 AAA SCREENING 2020 DIABETES-HGB A1C 03/20/2021 09/18/2020, 06/03/2020 DIABETES-SERUM CREATININE 09/18/20212020, 06/03/2020, 08/01/2011 DIABETES RETINOPATHY SCREENING 11/07/2022 11/07/2020, 07/18/2020, 07/18/2020, Additional history exists COVID-19 VACCINE ( season) 2024 DEPRESSION SCREENING 06/14/2024 DIABETES - URINE PROTEIN SCREENING 06/14/2024 INFLUENZA VACCINE (Season Ended) 2025 06/03/2019, 03/16/2018, 08/05/2017 Respiratory Syncytial Virus (RSV) Vaccine Pt: or [...] complete this topic MENINGOCOCCAL (Group B) VACCINE SHARED DECISION-MAKING Aged Out No longer eligible based on patient's age to complete this topic MENINGOCOCCAL GROUPS A/C/Y/W VACCINE Aged Out No longer eligible based on patient's age to complete this topic Insurance MEDICARE [facility] MEDICARE [facility] Member Subscriber Plan / Payer (Ef fective for All Dates) Name:Vicky Youssef Relation to Subscriber:Self Name:Vicky Youssef Payer ID:[id number] (NAIC) Type:Commercial Address: [address] [place] [phone] SELF PAY NO INSURANCE Member Subscriber Plan / Payer (Ef fective for All Dates) Name:Vicky Youssef Member ID:Not on file Relation to Subscriber:Not on file Name:VICKY YOUSSEF Subscriber ID:Not on file (Home) Address: [address] [place] [address] Payer ID:Not on file Group ID:Not on file Type:Self Pay Address: [place], [place] MEDICARE Care Teams Washateria Attendant Relationship Specialty Start Date End Date Tim Sanchez MD [address] [place] [address] PCP - General 10/05/17
--- OUTSIDE RECORDS SUMMARY | 2024-10-31 12:36 | XMS_ITS | Patient Health Record ---
Author Organization [facility] [email or web address] Address [address] [facility] [address] [place] [address] Care Team Providers Care Floor Steward/Stewardess Name Role Phone Perry Romero MD Primary Care Provider Unavailab [place] Unavailable [phone] KongNoah nielsonjay Unavailable [phone] Zohreh Hong Unavailable [phone] Allergies No Known Allergies Reason For Referral No Information Medications Medication SIG (Take, Route, Frequency, Duration) Notes Start Date End Date Status Escitalopram Oxalate 20 MG 1 tablet Oral Once a day for 90 days Active hydrOXYzine HCl 10 MG 1 tablet Oral Once a day for 90 days PA approved 08/07/2024 Active Pantoprazole Sodium 40 MG Oral 11/02/2023 Active Clopidogrel Bisulfate 75 MG Oral 11/02/2023 Active busPIRone HCl 30 MG 1 tablet Orally Twice a day for 90 days Active Metoprolol Tartrate 25 MG Oral 11/02/2023 Active metFORMIN HCl 1000 MG Oral 11/02/2023 Active traZODone HCl 50 MG 1 tablet at bedtime as needed Orally Once a day for 90 days Active Meloxicam 15 MG Oral 11/02/2023 Act maya Aspirin 81 81 MG 1 tablet Orally Once a day Active Clobetasol Propionate 0.05 % External 11/02/2023 Active Nitroglycerin 0.4 MG Sublingual 11/02/2023 Active Lisinopril 5 MG Oral 11/02/2023 Not -Taking Finasteride 5 MG Oral 11/02/2023 Ac tive oxyBUTYnin Chloride ER 10 MG Oral 11/02/2023 Active amLODIPine Besylate 2.5 MG Oral 11/02/2023 Active Cyclobenzaprine HCl 5 MG Oral 11/02/2023 Active Ezetimibe 10 MG Oral 11/02/2023 Act maya Cyclobenzaprine HCl 10 MG Oral 11/02/2023 Active Lisinopril 10 MG Oral 11/02/2023 Ac tive traMADol HCl 50 MG Oral 11/02/2023 Not-Taking Fenofibrate 145 MG Oral 11/02/2023 Active Social History Sex Assigned At : Social History Observation Description Sex Assigned At Male Problems Problem Type SNOMED Code ICD Code Onset Dates Problem Status W/U Status Risk Notes Problem Recurrent major depression (46318408) Major depressive disorder, recurrent, unspecified (F33.9) 10/13/19 Active confirmed Problem Dysthymia (75221879) Dysthymic disorder (F34.1) 10/13/19 Active confirmed Problem 4030828 Primary insomnia (F51.01) Active confirmed Problem Screening for cardiovascular system disease (018475846) Encounter for screening for cardiovascular disorders (Z13.6) Active confirmed Problem Dietary management surveillance (075960446) Dietary counseling and surveillance (Z71.3) Active confirmed Problem Depression Screening (800278187) Encounter for screening for depression (Z13.31) Active confirmed Problem Panic disorder (229027499) Panic disorder [episodic paroxysmal anxiety] without agoraphobia (F41.0) 09/22/19 Active confirmed Problem 54085836 MALI (generalized anxiety disorder) (F41.1) Active confirmed Problem 72564294 MDD (major depressive disorder), recurrent episode, moderate (F33.1) Active confirmed Problem [id number] Mild cognitive impairment (G31.84) Active confirmed Vital Signs Heart Rate 70 /min 10/09/2024 Blood pressure diastolic 77 mm Hg 10/09/2024 Height-cm 180.34 cm 10/09/2024 Weight-kg 95.26 kg 10/09/2024 Height 71.00 in 10/09/2024 Blood pressure systolic 150 mm Hg 10/09/2024 Weight 210 lbs 10/09/2024 BMI 29.29 kg/m2 10/09/2024 Encounters Encounter Location Date Provider Diagnosis [facility], [facility] [address] [place] [id number] 11/30/2023 Zohreh Hong Generalized anxiety disorder F41.1 ; Dysthymic disorder F34.1 and Major depressive disorder, recurrent, unspecified F33.[address] [address] 01/27/2024 Thena Hal Generalized anxiety disorder F41.1 ; Major depressive disorder, recurrent, unspecified F33.9 ; Mild cognitive impairment G31.84 and Panic disorder [episodic paroxysmal anxiety] without agoraphobia F41.[address] [address] 06/09/2024 Thena Hal Major depressive disorder, recurrent, unspecified F33.9 ; Generalized anxiety disorder F41.1 ; Panic disorder [episodic paroxysmal anxiety] without agoraphobia F41.0 ; Dysthymic disorder F34.1 and Benign essential HTN I10 [address] [address] 07/14/2024 Thena Hal Major depressive disorder, recurrent, unspecified F33.9 ; Generalized anxiety disorder F41.1 ; Panic disorder [episodic paroxysmal anxiety] without agoraphobia F41.0 ; Dysthymic disorder F34.1 and Benign essential HTN I10 [address] [address] 08/04/2024 [place] Major depressive disorder, recurrent, unspecified F33.9 ; MALI (generalized anxiety disorder) F41.1 ; Panic disorder [episodic paroxysmal anxiety] without agoraphobia F41.0 ; Mild cognitive impairment G31.84 and Primary insomnia F51.[address] [address] 08/25/2024 [place] Encounter for screen ing for cardiovascular disorders Z13.6 ; MDD (major depressive disorder), recurrent episode, moderate F33.1 ; Dietary counseling and surveillance Z71.3 ; Encounter for screening for depression Z13.31 ; MALI (generalized anxiety disorder) F41.1 ; Panic disorder [episodic paroxysmal anxiety] without agoraphobia F41.0 ; Mild cognitive impairment G31.84 and Primary insomnia F51.[address] [address] 10/09/2024 [place] Encounter for screen ing for cardiovascular disorders Z13.6 ; MDD (major depressive disorder), recurrent episode, moderate F33.1 ; Dietary counseling and surveillance Z71.3 ; Encounter for screening for depression Z13.31 ; MALI (generalized anxiety disorder) F41.1 ; Panic disorder [episodic paroxysmal anxiety] without agoraphobia F41.0 ; Mild cognitive impairment G31.84 ; Primary insomnia F51.01 and Benign essential HTN I10 [place] [address] [facility] [address] [place] [address] 01/07/2024 Thena Hal [facility] [address] [address] 06/12/2024 Zohreh Hong Major depressive disorder, recurrent, unspecified F33.9 [place] [id number] [facility] [address] [facility] [address] [place] [address] 09/07/2024 [place] Assessments Encounter Date Diagnosis (ICD Code) Assessment Notes Treatment Notes Treatment Clinical Notes Section Notes 06/09/2024 Major depressive disorder, recurrent, unspecified (ICD-10 - F33.9) 06/09/2024 Generalized anxiety disorder (ICD-10 - F41.1) 11/30/2023 Dysthymic disorder (ICD-10 - F34.1) 11/30/2023 Generalized anxiety disorder (ICD-10 - F41.1) 01/27/2024 Major depressive disorder, recurrent, unspecified (ICD-10 - F33.9) 01/27/2024 Generalized anxiety disorder (ICD-10 - F41.1) 08/04/2024 Major depressive disorder, recurrent, unspecified (ICD-10 - F33.9) Electronic Prior Authorization was requested for Escitalopram Oxalate 20 MG Tablet. Provider can order medication once approval received., Preventing Depression From Coming Back: Care Instructions material was published, Learning About How to Get Help During a Mental Health Crisis material was published, Learning About Depression Screening material was published, Depression Treatment: Care Instructions material was published, Seasonal Affective Disorder: Care Instructions material was published 1 depression Escitalopram Oxalate 20 MG Tablet 1 tablet Oral daily patient reported taking Lexapro 20 mg daily discuss TMS and patient wants to wait at this time discsus light box therapy and proper use and dicuss avoid looking into it 2. Insomnia traZODone HCl 50 MG Tablet 1 tablet at bedtime as needed Orally Once a day. patient reported takes PRN sleep hygeine 3. ANXIETY busPIRone HCl 30 MG Tablet 1 tablet Orally Twice a day. discuss and educated on all rx, benefits, side effects, risk Add Vistaril 10 mg daily as need for anxiety and panic - PA started educated on all medications, benefits, side effects and risk, and educated on depression, anxiety, and ADHD, mood d/o and educated on compliance of medications, metabolic and movement d/o education appointment is, continue therapy discussion with patient about course of treatment and patient instructions. education on serotonin syndrome SSRI/SNRI side effects discussed including but not limited to, gastric upset, nausea, vomiting, diarrhea and/or constipation, weight changes, sexual side effects including loss of libido, increased suicidal thoughts/behavi ors in children and young adults, and serotonin syndrome. Medication Management and Follow-Up - Plan: - Schedule follow-up appointments every 1-3 months to monitor the patient's response to the medication regimen. - Reinforce the importance of avoiding recreational drug use due to potential neurotoxicity and interactions with prescribed medications 08/25/2024 Encounter for screening for cardiovascular disorders (ICD-10 - Z13.6) 1 depression Escitalopram Oxalate 20 MG Tablet 1 tablet Oral daily patient reported taking Lexapro 20 mg daily discuss TMS and patient wants to wait at this time- will do SLUMS and MCI first discsus light box therapy and proper use and dicuss avoid looking into it 2. Insomnia traZODone HCl 50 MG Tablet 1 tablet at bedtime as needed Orally Once a day. patient reported takes PRN sleep hygeine 3. ANXIETY busPIRone HCl 30 MG Tablet 1 tablet Orally Twice a day. discuss and educated on all rx, benefits, side effects, risk Vistaril 10 mg daily as need for anxiety and panic - PA approved 4. Memory impairment schedule SLUMS AND MCI testing educated on all medications, benefits, side effects and risk, and educated on depression, anxiety, and ADHD, mood d/o and educated on compliance of medications, metabolic and movement d/o education appointment is, continue therapy discussion with patient about course of treatment and patient instructions. education on serotonin syndrome SSRI/SNRI side effects discussed including but not limited to, gastric upset, nausea, vomiting, diarrhea and/or constipation, weight changes, sexual side effects including loss of libido, increased suicidal thoughts/behavi ors in children and young adults, and serotonin syndrome. NO REFILLS NEEDED TODAY Medication Management and Follow-Up - Plan: - Schedule follow-up appointments every 1-3 months to monitor the patient's response to the medication regimen. - Reinforce the importance of avoiding recreational drug use due to potential neurotoxicity and interactions with prescribed medications 08/04/2024 MALI (generalized anxiety disorder) (ICD-10 - F41.1) Electronic Prior Authorization was requested for hydrOXYzine HCl 10 MG Tablet. Provider can order medication once approval received., Learning About Generalized Anxiety Disorder material was published, Generalized Anxiety Disorder: Care Instructions material was published, Learning About Transcranial Magnetic Stimulation (TMS) material was published, Learning About Anxiety Disorders material was published 1 depression Escitalopram Oxalate 20 MG Tablet 1 tablet Oral daily patient reported taking Lexapro 20 mg daily discuss TMS and patient wants to wait at this time discsus light box therapy and proper use and dicuss avoid looking into it 2. Insomnia traZODone HCl 50 MG Tablet 1 tablet at bedtime as needed Orally Once a day. patient reported takes PRN sleep hygeine 3. ANXIETY busPIRone HCl 30 MG Tablet 1 tablet Orally Twice a day. discuss and educated on all rx, benefits, side effects, risk Add Vistaril 10 mg daily as need for anxiety and panic - PA started educated on all medications, benefits, side effects and risk, and educated on depression, anxiety, and ADHD, mood d/o and educated on compliance of medications, metabolic and movement d/o education appointment is, continue therapy discussion with patient about course of treatment and patient instructions. education on serotonin syndrome SSRI/SNRI side effects discussed including but not limited to, gastric upset, nausea, vomiting, diarrhea and/or constipation, weight changes, sexual side effects including loss of libido, increased suicidal thoughts/behavi ors in children and young adults, and serotonin syndrome. Medication Management and Follow-Up - Plan: - Schedule follow-up appointments every 1-3 months to monitor the patient's response to the medication regimen. - Reinforce the importance of avoiding recreational drug use due to potential neurotoxicity and interactions with prescribed medications 08/25/2024 MDD (major depressive disorder), recurrent episode, moderate (ICD-10 - F33.1) 1 depression Escitalopram Oxalate 20 MG Tablet 1 tablet Oral daily patient reported taking Lexapro 20 mg daily discuss TMS and patient wants to wait at this time- will do SLUMS and MCI first discsus light box therapy and proper use and dicuss avoid looking into it 2. Insomnia traZODone HCl 50 MG Tablet 1 tablet at bedtime as needed Orally Once a day. patient reported takes PRN sleep hygeine 3. ANXIETY busPIRone HCl 30 MG Tablet 1 tablet Orally Twice a day. discuss and educated on all rx, benefits, side effects, risk Vistaril 10 mg daily as need for anxiety and panic - PA approved 4. Memory impairment schedule SLUMS AND MCI testing educated on all medications, benefits, side effects and risk, and educated on depression, anxiety, and ADHD, mood d/o and educated on compliance of medications, metabolic and movement d/o education appointment is, continue therapy discussion with patient about course of treatment and patient instructions. education on serotonin syndrome SSRI/SNRI side effects discussed including but not limited to, gastric upset, nausea, vomiting, diarrhea and/or constipation, weight changes, sexual side effects including loss of libido, increased suicidal thoughts/behavi ors in children and young adults, and serotonin syndrome. NO REFILLS NEEDED TODAY Medication Management and Follow-Up - Plan: - Schedule follow-up appointments every 1-3 months to monitor the patient's response to the medication regimen. - Reinforce the importance of avoiding recreational drug use due to potential neurotoxicity and interactions with prescribed medications 10/09/2024 Encounter for screening for cardiovascular disorders (ICD-10 - Z13.6) 1 depression Escitalopram Oxalate 20 MG Tablet 1 tablet Oral daily patient has appointments this week with cardiac and vascualr surgeon, cardiac cath, and PT, CATRACT SURGERY scheduled discuss TMS and patient wants to wait at this time- SLUMS 10/09/24= 23 MCI- PATIENT WOULD LIKE TO WAIT AT THIS TIME discsus light box therapy and proper use and dicuss avoid looking into it 2. Insomnia traZODone HCl 50 MG Tablet 1 tablet at bedtime as needed patient reported takes PRN sleep hygeine 3. ANXIETY busPIRone HCl 30 MG Tablet 1 tablet Orally Twice a day. discuss and educated on all rx, benefits, side effects, risk Vistaril 10 mg daily as need for anxiety and panic - PA approved- rx needed today 4. Memory impairment SLUMS 10/09/24= 23 MCI- PATIENT WOULD LIKE TO WAIT AT THIS TIME educated on all medications, benefits, side effects and risk, and educated on depression, anxiety, and ADHD, mood d/o and educated on compliance of medications, metabolic and movement d/o education appointment is, continue therapy discussion with patient about course of treatment and patient instructions. education on serotonin syndrome SSRI/SNRI side effects discussed including but not limited to, gastric upset, nausea, vomiting, diarrhea and/or constipation, weight changes, sexual side effects including loss of libido, increased suicidal thoughts/behavi ors in children and young adults, and serotonin syndrome. Medication Management and Follow-Up - Plan: - Schedule follow-up appointments every 1-3 months to monitor the patient's response to the medication regimen. - Reinforce the importance of avoiding recreational drug use due to potential neurotoxicity and interactions with prescribed medications 07/14/2024 Major depressive disorder, recurrent, unspecified (ICD-10 - F33.9) high dose of escitalopram has been beneficial in decreasing depressive symptoms and obsessive ruminations that were not effectively managed on lower doses, per pt report. 07/14/2024 Generalized anxiety disorder (ICD-10 - F41.1) 07/14/2024 Panic disorder [episodic paroxysmal anxiety] without agoraphobia (ICD-10 - F41.0) 10/09/2024 MDD (major depressive disorder), recurrent episode, moderate (ICD-10 - F33.1) 1 depression Escitalopram Oxalate 20 MG Tablet 1 tablet Oral daily patient has appointments this week with cardiac and vascualr surgeon, cardiac cath, and PT, CATRACT SURGERY scheduled discuss TMS and patient wants to wait at this time- SLUMS 10/09/24= 23 MCI- PATIENT WOULD LIKE TO WAIT AT THIS TIME discsus light box therapy and proper use and dicuss avoid looking into it 2. Insomnia traZODone HCl 50 MG Tablet 1 tablet at bedtime as needed patient reported takes PRN sleep hygeine 3. ANXIETY busPIRone HCl 30 MG Tablet 1 tablet Orally Twice a day. discuss and educated on all rx, benefits, side effects, risk Vistaril 10 mg daily as need for anxiety and panic - PA approved- rx needed today 4. Memory impairment SLUMS 10/09/24= 23 MCI- PATIENT WOULD LIKE TO WAIT AT THIS TIME educated on all medications, benefits, side effects and risk, and educated on depression, anxiety, and ADHD, mood d/o and educated on compliance of medications, metabolic and movement d/o education appointment is, continue therapy discussion with patient about course of treatment and patient instructions. education on serotonin syndrome SSRI/SNRI side effects discussed including but not limited to, gastric upset, nausea, vomiting, diarrhea and/or constipation, weight changes, sexual side effects including loss of libido, increased suicidal thoughts/behavi ors in children and young adults, and serotonin syndrome. Medication Management and Follow-Up - Plan: - Schedule follow-up appointments every 1-3 months to monitor the patient's response to the medication regimen. - Reinforce the importance of avoiding recreational drug use due to potential neurotoxicity and interactions with prescribed medications 08/25/2024 Dietary counseling and surveillance (ICD-10 - Z71.3) 1 depression Escitalopram Oxalate 20 MG Tablet 1 tablet Oral daily patient reported taking Lexapro 20 mg daily discuss TMS and patient wants to wait at this time- will do SLUMS and MCI first discsus light box therapy and proper use and dicuss avoid looking into it 2. Insomnia traZODone HCl 50 MG Tablet 1 tablet at bedtime as needed Orally Once a day. patient reported takes PRN sleep hygeine 3. ANXIETY busPIRone HCl 30 MG Tablet 1 tablet Orally Twice a day. discuss and educated on all rx, benefits, side effects, risk Vistaril 10 mg daily as need for anxiety and panic - PA approved 4. Memory impairment schedule SLUMS AND MCI testing educated on all medications, benefits, side effects and risk, and educated on depression, anxiety, and ADHD, mood d/o and educated on compliance of medications, metabolic and movement d/o education appointment is, continue therapy discussion with patient about course of treatment and patient instructions. education on serotonin syndrome SSRI/SNRI side effects discussed including but not limited to, gastric upset, nausea, vomiting, diarrhea and/or constipation, weight changes, sexual side effects including loss of libido, increased suicidal thoughts/behavi ors in children and young adults, and serotonin syndrome. NO REFILLS NEEDED TODAY Medication Management and Follow-Up - Plan: - Schedule follow-up appointments every 1-3 months to monitor the patient's response to the medication regimen. - Reinforce the importance of avoiding recreational drug use due to potential neurotoxicity and interactions with prescribed medications 01/27/2024 Mild cognitive impairment (ICD-10 - G31.84) 08/04/2024 Panic disorder [episodic paroxysmal anxiety] without agoraphobia (ICD-10 - F41.0) Panic Attacks: Care Instructions material was published 1 depression Escitalopram Oxalate 20 MG Tablet 1 tablet Oral daily patient reported taking Lexapro 20 mg daily discuss TMS and patient wants to wait at this time discsus light box therapy and proper use and dicuss avoid looking into it 2. Insomnia traZODone HCl 50 MG Tablet 1 tablet at bedtime as needed Orally Once a day. patient reported takes PRN sleep hygeine 3. ANXIETY busPIRone HCl 30 MG Tablet 1 tablet Orally Twice a day. discuss and educated on all rx, benefits, side effects, risk Add Vistaril 10 mg daily as need for anxiety and panic - PA started educated on all medications, benefits, side effects and risk, and educated on depression, anxiety, and ADHD, mood d/o and educated on compliance of medications, metabolic and movement d/o education appointment is, continue therapy discussion with patient about course of treatment and patient instructions. education on serotonin syndrome SSRI/SNRI side effects discussed including but not limited to, gastric upset, nausea, vomiting, diarrhea and/or constipation, weight changes, sexual side effects including loss of libido, increased suicidal thoughts/behavi ors in children and young adults, and serotonin syndrome. Medication Management and Follow-Up - Plan: - Schedule follow-up appointments every 1-3 months to monitor the patient's response to the medication regimen. - Reinforce the importance of avoiding recreational drug use due to potential neurotoxicity and interactions with prescribed medications 11/30/2023 Major depressive disorder, recurrent, unspecified (ICD-10 - F33.9) 06/09/2024 Panic disorder [episodic paroxysmal anxiety] without agoraphobia (ICD-10 - F41.0) 06/12/2024 Major depressive disorder, recurrent, unspecified (ICD-10 - F33.9) Electronic Prior Authorization was requested for Escitalopram Oxalate 20 MG Tablet. Provider can order medication once approval received. 06/09/2024 Dysthymic disorder (ICD-10 - F34.1) 01/27/2024 Panic disorder [episodic paroxysmal anxiety] without agoraphobia (ICD-10 - F41.0) 08/25/2024 Encounter for screening for depression (ICD-10 - Z13.31) 1 depression Escitalopram Oxalate 20 MG Tablet 1 tablet Oral daily patient reported taking Lexapro 20 mg daily discuss TMS and patient wants to wait at this time- will do SLUMS and MCI first discsus light box therapy and proper use and dicuss avoid looking into it 2. Insomnia traZODone HCl 50 MG Tablet 1 tablet at bedtime as needed Orally Once a day. patient reported takes PRN sleep hygeine 3. ANXIETY busPIRone HCl 30 MG Tablet 1 tablet Orally Twice a day. discuss and educated on all rx, benefits, side effects, risk Vistaril 10 mg daily as need for anxiety and panic - PA approved 4. Memory impairment schedule SLUMS AND MCI testing educated on all medications, benefits, side effects and risk, and educated on depression, anxiety, and ADHD, mood d/o and educated on compliance of medications, metabolic and movement d/o education appointment is, continue therapy discussion with patient about course of treatment and patient instructions. education on serotonin syndrome SSRI/SNRI side effects discussed including but not limited to, gastric upset, nausea, vomiting, diarrhea and/or constipation, weight changes, sexual side effects including loss of libido, increased suicidal thoughts/behavi ors in children and young adults, and serotonin syndrome. NO REFILLS NEEDED TODAY Medication Management and Follow-Up - Plan: - Schedule follow-up appointments every 1-3 months to monitor the patient's response to the medication regimen. - Reinforce the importance of avoiding recreational drug use due to potential neurotoxicity and interactions with prescribed medications 07/14/2024 Dysthymic disorder (ICD-10 - F34.1) 10/09/2024 Dietary counseling and surveillance (ICD-10 - Z71.3) 1 depression Escitalopram Oxalate 20 MG Tablet 1 tablet Oral daily patient has appointments this week with cardiac and vascualr surgeon, cardiac cath, and PT, CATRACT SURGERY scheduled discuss TMS and patient wants to wait at this time- SLUMS 10/09/24= 23 [facility]CI- PATIENT WOULD LIKE TO WAIT AT THIS TIME discsus light box therapy and proper use and dicuss avoid looking into it 2. Insomnia traZODone HCl 50 MG Tablet 1 tablet at bedtime as needed patient reported takes PRN sleep hygeine 3. ANXIETY busPIRone HCl 30 MG Tablet 1 tablet Orally Twice a day. discuss and educated on all rx, benefits, side effects, risk Vistaril 10 mg daily as need for anxiety and panic - PA approved- rx needed today 4. Memory impairment [facility] 10/09/24= 23 MCI- PATIENT WOULD LIKE TO WAIT AT THIS TIME educated on all medications, benefits, side effects and risk, and educated on depression, anxiety, and ADHD, mood d/o and educated on compliance of medications, metabolic and movement d/o education appointment is, continue therapy discussion with patient about course of treatment and patient instructions. education on serotonin syndrome SSRI/SNRI side effects discussed including but not limited to, gastric upset, nausea, vomiting, diarrhea and/or constipation, weight changes, sexual side effects including loss of libido, increased suicidal thoughts/behavi ors in children and young adults, and serotonin syndrome. Medication Management and Follow-Up - Plan: - Schedule follow-up appointments every 1-3 months to monitor the patient's response to the medication regimen. - Reinforce the importance of avoiding recreational drug use due to potential neurotoxicity and interactions with prescribed medications 08/04/2024 Mild cognitive impairment (ICD-10 - G31.84) Learning About Mild Cognitive Impairment (MCI) material was published 1 depression Escitalopram Oxalate 20 MG Tablet 1 tablet Oral daily patient reported taking Lexapro 20 mg daily discuss TMS and patient wants to wait at this time discsus light box therapy and proper use and dicuss avoid looking into it 2. Insomnia traZODone HCl 50 MG Tablet 1 tablet at bedtime as needed Orally Once a day. patient reported takes PRN sleep hygeine 3. ANXIETY busPIRone HCl 30 MG Tablet 1 tablet Orally Twice a day. discuss and educated on all rx, benefits, side effects, risk Add Vistaril 10 mg daily as need for anxiety and panic - PA started educated on all medications, benefits, side effects and risk, and educated on depression, anxiety, and ADHD, mood d/o and educated on compliance of medications, metabolic and movement d/o education appointment is, continue therapy discussion with patient about course of treatment and patient instructions. education on serotonin syndrome SSRI/SNRI side effects discussed including but not limited to, gastric upset, nausea, vomiting, diarrhea and/or constipation, weight changes, sexual side effects including loss of libido, increased suicidal thoughts/behavi ors in children and young adults, and serotonin syndrome. Medication Management and Follow-Up - Plan: - Schedule follow-up appointments every 1-3 months to monitor the patient's response to the medication regimen. - Reinforce the importance of avoiding recreational drug use due to potential neurotoxicity and interactions with prescribed medications 10/09/2024 Encounter for screening for depression (ICD-10 - Z13.31) 1 depression Escitalopram Oxalate 20 MG Tablet 1 tablet Oral daily patient has appointments this week with cardiac and vascualr surgeon, cardiac cath, and PT, CATRACT SURGERY scheduled discuss TMS and patient wants to wait at this time- [facility] 10/09/24= 23 MCI- PATIENT WOULD LIKE TO WAIT AT THIS TIME discsus light box therapy and proper use and dicuss avoid looking into it 2. Insomnia traZODone HCl 50 MG Tablet 1 tablet at bedtime as needed patient reported takes PRN sleep hygeine 3. ANXIETY busPIRone HCl 30 MG Tablet 1 tablet Orally Twice a day. discuss and educated on all rx, benefits, side effects, risk Vistaril 10 mg daily as need for anxiety and panic - PA approved- rx needed today 4. Memory impairment [facility] 10/09/24= 23 MCI- PATIENT WOULD LIKE TO WAIT AT THIS TIME educated on all medications, benefits, side effects and risk, and educated on depression, anxiety, and ADHD, mood d/o and educated on compliance of medications, metabolic and movement d/o education appointment is, continue therapy discussion with patient about course of treatment and patient instructions. education on serotonin syndrome SSRI/SNRI side effects discussed including but not limited to, gastric upset, nausea, vomiting, diarrhea and/or constipation, weight changes, sexual side effects including loss of libido, increased suicidal thoughts/behavi ors in children and young adults, and serotonin syndrome. Medication Management and Follow-Up - Plan: - Schedule follow-up appointments every 1-3 months to monitor the patient's response to the medication regimen. - Reinforce the importance of avoiding recreational drug use due to potential neurotoxicity and interactions with prescribed medications 08/25/2024 MALI (generalized anxiety disorder) (ICD-10 - F41.1) Electronic Prior Authorization was requested for hydrOXYzine HCl 10 MG Tablet. Provider can order medication once approval received., Learning About Generalized Anxiety Disorder material was published, Generalized Anxiety Disorder: Care Instructions material was published, Learning About Transcranial Magnetic Stimulation (TMS) material was published, Learning About Anxiety Disorders material was published 1 depression Escitalopram Oxalate 20 MG Tablet 1 tablet Oral daily patient reported taking Lexapro 20 mg daily discuss TMS and patient wants to wait at this time- will do [facility] and [facility]CI first discsus light box therapy and proper use and dicuss avoid looking into it 2. Insomnia traZODone HCl 50 MG Tablet 1 tablet at bedtime as needed Orally Once a day. patient reported takes PRN sleep hygeine 3. ANXIETY busPIRone HCl 30 MG Tablet 1 tablet Orally Twice a day. discuss and educated on all rx, benefits, side effects, risk Vistaril 10 mg daily as need for anxiety and panic - PA approved 4. Memory impairment schedule [facility] AND [facility]CI testing educated on all medications, benefits, side effects and risk, and educated on depression, anxiety, and ADHD, mood d/o and educated on compliance of medications, metabolic and movement d/o education appointment is, continue therapy discussion with patient about course of treatment and patient instructions. education on serotonin syndrome SSRI/SNRI side effects discussed including but not limited to, gastric upset, nausea, vomiting, diarrhea and/or constipation, weight changes, sexual side effects including loss of libido, increased suicidal thoughts/behavi ors in children and young adults, and serotonin syndrome. NO REFILLS NEEDED TODAY Medication Management and Follow-Up - Plan: - Schedule follow-up appointments every 1-3 months to monitor the patient's response to the medication regimen. - Reinforce the importance of avoiding recreational drug use due to potential neurotoxicity and interactions with prescribed medications 08/04/2024 Primary insomnia (ICD-10 - F51.01) Insomnia: Care Instructions material was published, Learning About Sleeping Well material was published 1 depression Escitalopram Oxalate 20 MG Tablet 1 tablet Oral daily patient reported taking Lexapro 20 mg daily discuss TMS and patient wants to wait at this time discsus light box therapy and proper use and dicuss avoid looking into it 2. Insomnia traZODone HCl 50 MG Tablet 1 tablet at bedtime as needed Orally Once a day. patient reported takes PRN sleep hygeine 3. ANXIETY busPIRone HCl 30 MG Tablet 1 tablet Orally Twice a day. discuss and educated on all rx, benefits, side effects, risk Add Vistaril 10 mg daily as need for anxiety and panic - PA started educated on all medications, benefits, side effects and risk, and educated on depression, anxiety, and ADHD, mood d/o and educated on compliance of medications, metabolic and movement d/o education appointment is, continue therapy discussion with patient about course of treatment and patient instructions. education on serotonin syndrome SSRI/SNRI side effects discussed including but not limited to, gastric upset, nausea, vomiting, diarrhea and/or constipation, weight changes, sexual side effects including loss of libido, increased suicidal thoughts/behavi ors in children and young adults, and serotonin syndrome. Medication Management and Follow-Up - Plan: - Schedule follow-up appointments every 1-3 months to monitor the patient's response to the medication regimen. - Reinforce the importance of avoiding recreational drug use due to potential neurotoxicity and interactions with prescribed medications 08/25/2024 Panic disorder [episodic paroxysmal anxiety] without agoraphobia (ICD-10 - F41.0) Panic Attacks: Care Instructions material was published 1 depression Escitalopram Oxalate 20 MG Tablet 1 tablet Oral daily patient reported taking Lexapro 20 mg daily discuss TMS and patient wants to wait at this time- will do [facility] and [facility]CI first discsus light box therapy and proper use and dicuss avoid looking into it 2. Insomnia traZODone HCl 50 MG Tablet 1 tablet at bedtime as needed Orally Once a day. patient reported takes PRN sleep hygeine 3. ANXIETY busPIRone HCl 30 MG Tablet 1 tablet Orally Twice a day. discuss and educated on all rx, benefits, side effects, risk Vistaril 10 mg daily as need for anxiety and panic - PA approved 4. Memory impairment schedule [facility] AND [facility] testing educated on all medications, benefits, side effects and risk, and educated on depression, anxiety, and ADHD, mood d/o and educated on compliance of medications, metabolic and movement d/o education appointment is, continue therapy discussion with patient about course of treatment and patient instructions. education on serotonin syndrome SSRI/SNRI side effects discussed including but not limited to, gastric upset, nausea, vomiting, diarrhea and/or constipation, weight changes, sexual side effects including loss of libido, increased suicidal thoughts/behavi ors in children and young adults, and serotonin syndrome. NO REFILLS NEEDED TODAY Medication Management and Follow-Up - Plan: - Schedule follow-up appointments every 1-3 months to monitor the patient's response to the medication regimen. - Reinforce the importance of avoiding recreational drug use due to potential neurotoxicity and interactions with prescribed medications 10/09/2024 MALI (generalized anxiety disorder) (ICD-10 - F41.1) Electronic Prior Authorization was requested for hydrOXYzine HCl 10 MG Tablet. Provider can order medication once approval received., Learning About Generalized Anxiety Disorder material was published, Generalized Anxiety Disorder: Care Instructions material was published, Learning About Transcranial Magnetic Stimulation (TMS) material was published, Learning About Anxiety Disorders material was published 1 depression Escitalopram Oxalate 20 MG Tablet 1 tablet Oral daily patient has appointments this week with cardiac and vascualr surgeon, cardiac cath, and PT, CATRACT SURGERY scheduled discuss TMS and patient wants to wait at this time- [facility] MCI- PATIENT WOULD LIKE TO WAIT AT THIS TIME discsus light box therapy and proper use and dicuss avoid looking into it 2. Insomnia traZODone HCl 50 MG Tablet 1 tablet at bedtime as needed patient reported takes PRN sleep hygeine 3. ANXIETY busPIRone HCl 30 MG Tablet 1 tablet Orally Twice a day. discuss and educated on all rx, benefits, side effects, risk Vistaril 10 mg daily as need for anxiety and panic - PA approved- rx needed today 4. Memory impairment [facility] 10/09/24= 23 MCI- PATIENT WOULD LIKE TO WAIT AT THIS TIME educated on all medications, benefits, side effects and risk, and educated on depression, anxiety, and ADHD, mood d/o and educated on compliance of medications, metabolic and movement d/o education appointment is, continue therapy discussion with patient about course of treatment and patient instructions. education on serotonin syndrome SSRI/SNRI side effects discussed including but not limited to, gastric upset, nausea, vomiting, diarrhea and/or constipation, weight changes, sexual side effects including loss of libido, increased suicidal thoughts/behavi ors in children and young adults, and serotonin syndrome. Medication Management and Follow-Up - Plan: - Schedule follow-up appointments every 1-3 months to monitor the patient's response to the medication regimen. - Reinforce the importance of avoiding recreational drug use due to potential neurotoxicity and interactions with prescribed medications 07/14/2024 Benign essential HTN (ICD-10 - I10) 06/09/2024 Benign essential HTN (ICD-10 - I10) 10/09/2024 Panic disorder [episodic paroxysmal anxiety] without agoraphobia (ICD-10 - F41.0) Panic Attacks: Care Instructions material was published 1 depression Escitalopram Oxalate 20 MG Tablet 1 tablet Oral daily patient has appointments this week with cardiac and vascualr surgeon, cardiac cath, and PT, CATRACT SURGERY scheduled discuss TMS and patient wants to wait at this time- [facility] 10/09/24= 23 MCI- PATIENT WOULD LIKE TO WAIT AT THIS TIME discsus light box therapy and proper use and dicuss avoid looking into it 2. Insomnia traZODone HCl 50 MG Tablet 1 tablet at bedtime as needed patient reported takes PRN sleep hygeine 3. ANXIETY busPIRone HCl 30 MG Tablet 1 tablet Orally Twice a day. discuss and educated on all rx, benefits, side effects, risk Vistaril 10 mg daily as need for anxiety and panic - PA approved- rx needed today 4. Memory impairment [facility] 10/09/24= 23 MCI- PATIENT WOULD LIKE TO WAIT AT THIS TIME educated on all medications, benefits, side effects and risk, and educated on depression, anxiety, and ADHD, mood d/o and educated on compliance of medications, metabolic and movement d/o education appointment is, continue therapy discussion with patient about course of treatment and patient instructions. education on serotonin syndrome SSRI/SNRI side effects discussed including but not limited to, gastric upset, nausea, vomiting, diarrhea and/or constipation, weight changes, sexual side effects including loss of libido, increased suicidal thoughts/behavi ors in children and young adults, and serotonin syndrome. Medication Management and Follow-Up - Plan: - Schedule follow-up appointments every 1-3 months to monitor the patient's response to the medication regimen. - Reinforce the importance of avoiding recreational drug use due to potential neurotoxicity and interactions with prescribed medications 08/25/2024 Mild cognitive impairment (ICD-10 - G31.84) Learning About Mild Cognitive Impairment (MCI) material was published 1 depression Escitalopram Oxalate 20 MG Tablet 1 tablet Oral daily patient reported taking Lexapro 20 mg daily discuss TMS and patient wants to wait at this time- will do [facility] and [facility]CI first discsus light box therapy and proper use and dicuss avoid looking into it 2. Insomnia traZODone HCl 50 MG Tablet 1 tablet at bedtime as needed Orally Once a day. patient reported takes PRN sleep hygeine 3. ANXIETY busPIRone HCl 30 MG Tablet 1 tablet Orally Twice a day. discuss and educated on all rx, benefits, side effects, risk Vistaril 10 mg daily as need for anxiety and panic - PA approved 4. Memory impairment schedule [facility] AND [facility]CI testing educated on all medications, benefits, side effects and risk, and educated on depression, anxiety, and ADHD, mood d/o and educated on compliance of medications, metabolic and movement d/o education appointment is, continue therapy discussion with patient about course of treatment and patient instructions. education on serotonin syndrome SSRI/SNRI side effects discussed including but not limited to, gastric upset, nausea, vomiting, diarrhea and/or constipation, weight changes, sexual side effects including loss of libido, increased suicidal thoughts/behavi ors in children and young adults, and serotonin syndrome. NO REFILLS NEEDED TODAY Medication Management and Follow-Up - Plan: - Schedule follow-up appointments every 1-3 months to monitor the patient's response to the medication regimen. - Reinforce the importance of avoiding recreational drug use due to potential neurotoxicity and interactions with prescribed medications 08/25/2024 Primary insomnia (ICD-10 - F51.01) Insomnia: Care Instructions material was published, Learning About Sleeping Well material was published 1 depression Escitalopram Oxalate 20 MG Tablet 1 tablet Oral daily patient reported taking Lexapro 20 mg daily discuss TMS and patient wants to wait at this time- will do [facility] and [facility]CI first discsus light box therapy and proper use and dicuss avoid looking into it 2. Insomnia traZODone HCl 50 MG Tablet 1 tablet at bedtime as needed Orally Once a day. patient reported takes PRN sleep hygeine 3. ANXIETY busPIRone HCl 30 MG Tablet 1 tablet Orally Twice a day. discuss and educated on all rx, benefits, side effects, risk Vistaril 10 mg daily as need for anxiety and panic - PA approved 4. Memory impairment schedule [facility] AND [facility]CI testing educated on all medications, benefits, side effects and risk, and educated on depression, anxiety, and ADHD, mood d/o and educated on compliance of medications, metabolic and movement d/o education appointment is, continue therapy discussion with patient about course of treatment and patient instructions. education on serotonin syndrome SSRI/SNRI side effects discussed including but not limited to, gastric upset, nausea, vomiting, diarrhea and/or constipation, weight changes, sexual side effects including loss of libido, increased suicidal thoughts/behavi ors in children and young adults, and serotonin syndrome. NO REFILLS NEEDED TODAY Medication Management and Follow-Up - Plan: - Schedule follow-up appointments every 1-3 months to monitor the patient's response to the medication regimen. - Reinforce the importance of avoiding recreational drug use due to potential neurotoxicity and interactions with prescribed medications 10/09/2024 Mild cognitive impairment (ICD-10 - G31.84) Learning About Mild Cognitive Impairment (MCI) material was published 1 depression Escitalopram Oxalate 20 MG Tablet 1 tablet Oral daily patient has appointments this week with cardiac and vascualr surgeon, cardiac cath, and PT, CATRACT SURGERY scheduled discuss TMS and patient wants to wait at this time- [facility] 10/09/24= 23 MCI- PATIENT WOULD LIKE TO WAIT AT THIS TIME discsus light box therapy and proper use and dicuss avoid looking into it 2. Insomnia traZODone HCl 50 MG Tablet 1 tablet at bedtime as needed patient reported takes PRN sleep hygeine 3. ANXIETY busPIRone HCl 30 MG Tablet 1 tablet Orally Twice a day. discuss and educated on all rx, benefits, side effects, risk Vistaril 10 mg daily as need for anxiety and panic - PA approved- rx needed today 4. Memory impairment [facility] 10/09/24= 23 MCI- PATIENT WOULD LIKE TO WAIT AT THIS TIME educated on all medications, benefits, side effects and risk, and educated on depression, anxiety, and ADHD, mood d/o and educated on compliance of medications, metabolic and movement d/o education appointment is, continue therapy discussion with patient about course of treatment and patient instructions. education on serotonin syndrome SSRI/SNRI side effects discussed including but not limited to, gastric upset, nausea, vomiting, diarrhea and/or constipation, weight changes, sexual side effects including loss of libido, increased suicidal thoughts/behavi ors in children and young adults, and serotonin syndrome. Medication Management and Follow-Up - Plan: - Schedule follow-up appointments every 1-3 months to monitor the patient's response to the medication regimen. - Reinforce the importance of avoiding recreational drug use due to potential neurotoxicity and interactions with prescribed medications 10/09/2024 Primary insomnia (ICD-10 - F51.01) Insomnia: Care Instructions material was published, Learning About Sleeping Well material was published 1 depression Escitalopram Oxalate 20 MG Tablet 1 tablet Oral daily patient has appointments this week with cardiac and vascualr surgeon, cardiac cath, and PT, CATRACT SURGERY scheduled discuss TMS and patient wants to wait at this time- [facility] 10/09/24= 23 MCI- PATIENT WOULD LIKE TO WAIT AT THIS TIME discsus light box therapy and proper use and dicuss avoid looking into it 2. Insomnia traZODone HCl 50 MG Tablet 1 tablet at bedtime as needed patient reported takes PRN sleep hygeine 3. ANXIETY busPIRone HCl 30 MG Tablet 1 tablet Orally Twice a day. discuss and educated on all rx, benefits, side effects, risk Vistaril 10 mg daily as need for anxiety and panic - PA approved- rx needed today 4. Memory impairment [facility] 10/09/24= 23 MCI- PATIENT WOULD LIKE TO WAIT AT THIS TIME educated on all medications, benefits, side effects and risk, and educated on depression, anxiety, and ADHD, mood d/o and educated on compliance of medications, metabolic and movement d/o education appointment is, continue therapy discussion with patient about course of treatment and patient instructions. education on serotonin syndrome SSRI/SNRI side effects discussed including but not limited to, gastric upset, nausea, vomiting, diarrhea and/or constipation, weight changes, sexual side effects including loss of libido, increased suicidal thoughts/behavi ors in children and young adults, and serotonin syndrome. Medication Management and Follow-Up - Plan: - Schedule follow-up appointments every 1-3 months to monitor the patient's response to the medication regimen. - Reinforce the importance of avoiding recreational drug use due to potential neurotoxicity and interactions with prescribed medications 10/09/2024 Benign essential HTN (ICD-10 - I10) 1 depression Escitalopram Oxalate 20 MG Tablet 1 tablet Oral daily patient has appointments this week with cardiac and vascualr surgeon, cardiac cath, and PT, CATRACT SURGERY scheduled discuss TMS and patient wants to wait at this time- [facility] 10/09/24= 23 MCI- PATIENT WOULD LIKE TO WAIT AT THIS TIME discsus light box therapy and proper use and dicuss avoid looking into it 2. Insomnia traZODone HCl 50 MG Tablet 1 tablet at bedtime as needed patient reported takes PRN sleep hygeine 3. ANXIETY busPIRone HCl 30 MG Tablet 1 tablet Orally Twice a day. discuss and educated on all rx, benefits, side effects, risk Vistaril 10 mg daily as need for anxiety and panic - PA approved- rx needed today 4. Memory impairment [facility] 10/09/24= 23 MCI- PATIENT WOULD LIKE TO WAIT AT THIS TIME educated on all medications, benefits, side effects and risk, and educated on depression, anxiety, and ADHD, mood d/o and educated on compliance of medications, metabolic and movement d/o education appointment is, continue therapy discussion with patient about course of treatment and patient instructions. education on serotonin syndrome SSRI/SNRI side effects discussed including but not limited to, gastric upset, nausea, vomiting, diarrhea and/or constipation, weight changes, sexual side effects including loss of libido, increased suicidal thoughts/behavi ors in children and young adults, and serotonin syndrome. Medication Management and Follow-Up - Plan: - Schedule follow-up appointments every 1-3 months to monitor the patient's response to the medication regimen. - Reinforce the importance of avoiding recreational drug use due to potential neurotoxicity and interactions with prescribed medications 08/04/2024 Other Escitalopram material was published, Buspirone material was published, Trazodone material was published 1 depression Escitalopram Oxalate 20 MG Tablet 1 tablet Oral daily patient reported taking Lexapro 20 mg daily discuss TMS and patient wants to wait at this time discsus light box therapy and proper use and dicuss avoid looking into it 2. Insomnia traZODone HCl 50 MG Tablet 1 tablet at bedtime as needed Orally Once a day. patient reported takes PRN sleep hygeine 3. ANXIETY busPIRone HCl 30 MG Tablet 1 tablet Orally Twice a day. discuss and educated on all rx, benefits, side effects, risk Add Vistaril 10 mg daily as need for anxiety and panic - PA started educated on all medications, benefits, side effects and risk, and educated on depression, anxiety, and ADHD, mood d/o and educated on compliance of medications, metabolic and movement d/o education appointment is, continue therapy discussion with patient about course of treatment and patient instructions. education on serotonin syndrome SSRI/SNRI side effects discussed including but not limited to, gastric upset, nausea, vomiting, diarrhea and/or constipation, weight changes, sexual side effects including loss of libido, increased suicidal thoughts/behavi ors in children and young adults, and serotonin syndrome. Medication Management and Follow-Up - Plan: - Schedule follow-up appointments every 1-3 months to monitor the patient's response to the medication regimen. - Reinforce the importance of avoiding recreational drug use due to potential neurotoxicity and interactions with prescribed medications 08/25/2024 Other Electronic Prio r Authorization was requested for Escitalopram Oxalate 20 MG Tablet. Provider can order medication once approval received., Preventing Depression From Coming Back: Care Instructions material was published, Learning About How to Get Help During a Mental Health Crisis material was published, Learning About Depression Screening material was published, Depression Treatment: Care Instructions material was published, Seasonal Affective Disorder: Care Instructions material was published 1 depression Escitalopram Oxalate 20 MG Tablet 1 tablet Oral daily patient reported taking Lexapro 20 mg daily discuss TMS and patient wants to wait at this time- will do SLUMS and MCI first discsus light box therapy and proper use and dicuss avoid looking into it 2. Insomnia traZODone HCl 50 MG Tablet 1 tablet at bedtime as needed Orally Once a day. patient reported takes PRN sleep hygeine 3. ANXIETY busPIRone HCl 30 MG Tablet 1 tablet Orally Twice a day. discuss and educated on all rx, benefits, side effects, risk Vistaril 10 mg daily as need for anxiety and panic - PA approved 4. Memory impairment schedule SLUMS AND MCI testing educated on all medications, benefits, side effects and risk, and educated on depression, anxiety, and ADHD, mood d/o and educated on compliance of medications, metabolic and movement d/o education appointment is, continue therapy discussion with patient about course of treatment and patient instructions. education on serotonin syndrome SSRI/SNRI side effects discussed including but not limited to, gastric upset, nausea, vomiting, diarrhea and/or constipation, weight changes, sexual side effects including loss of libido, increased suicidal thoughts/behavi ors in children and young adults, and serotonin syndrome. NO REFILLS NEEDED TODAY Medication Management and Follow-Up - Plan: - Schedule follow-up appointments every 1-3 months to monitor the patient's response to the medication regimen. - Reinforce the importance of avoiding recreational drug use due to potential neurotoxicity and interactions with prescribed medications 10/09/2024 Other Notes: referral to the local chapter or national office of the Alzheimer's Association ( ; http://www.alz.o rg), the Alzheimer's Disease Education and Referral Center (ADEAR) ( ; http://www.vinh.n ih.gov/Alzheimer s/), 1 depression Escitalopram Oxalate 20 MG Tablet 1 tablet Oral daily patient has appointments this week with cardiac and vascualr surgeon, cardiac cath, and PT, CATRACT SURGERY scheduled discuss TMS and patient wants to wait at this time- SLUMS 10/09/24= 23 MCI- PATIENT WOULD LIKE TO WAIT AT THIS TIME discsus light box therapy and proper use and dicuss avoid looking into it 2. Insomnia traZODone HCl 50 MG Tablet 1 tablet at bedtime as needed patient reported takes PRN sleep hygeine 3. ANXIETY busPIRone HCl 30 MG Tablet 1 tablet Orally Twice a day. discuss and educated on all rx, benefits, side effects, risk Vistaril 10 mg daily as need for anxiety and panic - PA approved- rx needed today 4. Memory impairment SLUMS 10/09/24= 23 MCI- PATIENT WOULD LIKE TO WAIT AT THIS TIME educated on all medications, benefits, side effects and risk, and educated on depression, anxiety, and ADHD, mood d/o and educated on compliance of medications, metabolic and movement d/o education appointment is, continue therapy discussion with patient about course of treatment and patient instructions. education on serotonin syndrome SSRI/SNRI side effects discussed including but not limited to, gastric upset, nausea, vomiting, diarrhea and/or constipation, weight changes, sexual side effects including loss of libido, increased suicidal thoughts/behavi ors in children and young adults, and serotonin syndrome. Medication Management and Follow-Up - Plan: - Schedule follow-up appointments every 1-3 months to monitor the patient's response to the medication regimen. - Reinforce the importance of avoiding recreational drug use due to potential neurotoxicity and interactions with prescribed medications Plan Of Treatment Future Test Test Name Order Date MCI Testing 08/25/2024 SLUMS Testing 08/25/2024 Next Appt Details Provider Name:[place] , 01/08/2025 09:45:00 AM, [address], [facility] [address], [place], [address], Insurance Providers Payer Name Payer Address Payer Phone Subscriber Number Group Number Insured Name Patient Relationship to Insured Coverage Start Date Coverage End Date Medicare-I l Medicare [address] [place] [phone] [id number] VICKY ACEVEDO Self - patient is the insured [facility] [address] [place] [address] [id number] VICKY ACEVEDO Self - patient is the insured Medical (General) History Medical History History ICD Code Problems: Generalized anxiety disorder Panic disorder Persistent depressive disorder Recurrent major depression , Surgical History Surgery Date(Month/Year) Cardiac stent Cataract surgery (69232) Cosmetic surgery Heart surgery Appendectomy (45748) Reconstructive surgery
--- OUTSIDE RECORDS SUMMARY | 2024-10-31 12:36 | XMS_ITS | Encounter Summary ---
Author Organization [facility] Healthcare Address [address] [place] [address] Care Team Providers Care Wash Test Checker Name Role Phone Leonidas Carroll MD Unavailable [phone] Perry Romero MD Primary Care Provider [phone] Love Jones PT Unavailable Unavailab Arthur Law MD Unavailable Karl Cha MD Unavailable [phone] Encounter Details Date Type Department Care Team (Late st Contact Info) Description 07/08/2023 Telephone [facility] [address] [facility] [address] [place], [place] [id number] Arthur Bateman MD [address] [facility] [address] [place] [address] Social History Tobacco Use Types Packs/Day Years [...] week 05/02/2021 How often do you attend [facility] or yazidism services? 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 Author CCM Chronic Pain Care Plan Chronic Care Management No change(08/10 10:32 AM GROOMING ASSISTANT) No Brissa Muse RN Note: Problem: Chronic Pain Goals: 1. Minimize further functional decline 2. Maximize quality of life 3. Control pain Strategies: - Activity/exercise program recommendation - Conservative stepwise pain medicine strategy with multi-disciplinary approach - Recommend healthy lifestyle strategies and compensatory methods as needed documented as of this encounter Visit Diagnoses Not on filedocumented in this encounter Care Teams Wash Test Checker Relationship Specialty Start Date End Date Perry Romero MD PCP - General Internal Medicine 02/23/20 Leonidas Carroll MD Quantitative Consultant Cardiology 05/23/19 Love Jones, PT Physical Therapist Physical Therapy 09/28/22 Arthur Bateman MD [address] [address] Referring Physician Anesthesiology 09/28/22 Karl Cha MD [address] [place] [address] Referring Physician Orthopedic Surgery 11/24/23 documented as of this encounter
--- OUTSIDE RECORDS SUMMARY | 2024-10-31 12:36 | XMS_ITS | Encounter Summary ---
Author Organization [facility] Address [address] [place] [address] Phone Care Team Providers Care Executive Director Global Brand Marketing Name Role Phone Leonidas Carroll MD Unavailable [phone] Perry Romero MD Primary Care Provider Love Jones PT Unavailable Unavailab Arthur Law MD Unavailable Karl Cha MD Unavailable [phone] Encounter Details Date Type Department Care Team (Late st Contact Info) Description 10/18/2024 Results Follow-Up [facility] Cardiology [address] [facility] [address] 8th [place] [address] [place] [address] Leonidas Carroll MD [address] [place] [address] Basic metabolic panel, eGFR Social History Tobacco Use Types Packs/Day Years [...] week 05/02/2021 How often [facility] or nondenominational services? 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 documented in this encounter Plan of Treatment Scheduled Orders Name Type Priority Associated Diagnoses Orde r Schedule Basic metabolic panel Lab Routine Primary hypertension Expected: 11/03/2024, Expires: 10/19/2025 documented as of this encounter Goals Goal Patient Goal Type Associated Problems Recent Progress Patient-Stated? Author CCM Chronic Pain Care Plan Chronic Care Management No change(08/10 10:32 AM MEDIA TRAFFIC MANAGER) No Brissa Muse RN Note: Problem: Chronic Pain Goals: 1. Minimize further functional decline 2. Maximize quality of life 3. Control pain Strategies: - Activity/exercise program recommendation - Conservative stepwise pain medicine strategy with multi-disciplinary approach - Recommend healthy lifestyle strategies and compensatory methods as needed documented as of this encounter Visit Diagnoses Diagnosis Primary hypertension- Primary Unspecified essential hypertension documented in this encounter Care Teams Executive Director Global Brand Marketing Relationship Specialty Start Date End Date Perry Romero MD PCP - General Internal Medicine 02/23/20 Leonidas Carroll MD Wax Pattern Coater Cardiology 05/23/19 Love Jones, PT Physical Therapist Physical Therapy 09/28/22 Arthur Bateman MD [address] [address] Referring Physician Anesthesiology 09/28/22 Karl Cha MD [address] [place] [address] Referring Physician Orthopedic Surgery 11/24/23 documented as of this encounter
--- OUTSIDE RECORDS SUMMARY | 2024-10-31 12:36 | XMS_ITS | Encounter Summary ---
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
--- OUTSIDE RECORDS SUMMARY | 2024-10-31 12:37 | XMS_ITS | Clinical Summary ---
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 Medications fenofibrate nanocrystallized (TRICOR) 145 mg tablet Take 1 tablet (145 mg total) by mouth daily 90 tablet 3 023 Active ezetimibe (ZETIA) 10 mg tablet TAKE 1 TABLET(10 MG) BY MOUTH EVERY NIGHT 90 tablet 3 024 Active metFORMIN (GLUCOPHAGE) 1,000 mg tablet TAKE 1 TABLET(1000 MG) BY MOUTH DAILY WITH BREAKFAST 90 tablet 3 024 Active busPIRone (BUSPAR) 30 mg tablet Take 1 tablet (30 mg total) by mouth 2 (two) times a day 024 Active nitroglycerin (NITROSTAT) 0.[address] 1 tablet (0.4 mg total) under the tongue every 5 (five) minutes as needed for chest pain May repeat dose q 5 min, up to 3 doses total 25 tablet 3 10/29/07 Active aspirin 81 mg chewable tablet Take 1 tablet (81 mg total) by mouth daily 30 tablet 11 2024 Active meloxicam (MOBIC) 7.5 mg tabletIndications:P ain Take 1 tablet (7.5 mg total) by mouth daily 30 tablet Active traMADoL (ULTRAM) 50 mg tabletIndications:E ncounter for other specified surgical aftercare Take 1 tablet (50 mg total) by mouth every 6 (six) hours as needed for pain [address] (PROTONIX) 40 mg EC tablet TAKE 1 TABLET(40 MG) BY MOUTH DAILY 90 tablet 2 Active finasteride (PROSCAR) 5 mg tabletIndications:b enign prostatic hyperplasia with lower urinary tract sx Take 1 tablet (5 mg total) by mouth quill winder before breakfast 90 tablet 3 Active clopidogreL (PLAVIX) 75 mg tablet TAKE 1 TABLET(75 MG) BY MOUTH DAILY 90 tablet 3 Active escitalopram (LEXAPRO) 20 mg tablet Take 1 tablet (20 mg total) by mouth 2 (two) times a day Active hydrOXYzine (ATARAX) 10 mg tablet Take 1 tablet (10 mg total) by mouth daily Active metoprolol XL (TOPROL-XL) 25 mg extended release tablet Take 1 tablet (25 mg total) by mouth daily 30 tablet 2025 Active sacubitriL-valsarta n (ENTRESTO) 24-26 mg tabletIndications:c hronic heart failure Take 1 tablet by mouth 2 (two) times a day 60 tablet 025 2024 Active empagliflozin (JARDIANCE) 10 mg tablet Take 1 tablet (10 mg total) by mouth daily 30 tablet Active amLODIPine (NORVASC) 2.5 mg tablet TAKE 1 TABLET(2.5 MG) BY MOUTH DAILY 90 tablet 3 025 Active tamsulosin (FLOMAX) 0.4 mg extended release capsuleIndications: Nocturia Take 1 capsule (0.4 mg total) by mouth daily 30 capsule 2021 Discontinued metoprolol tartrate (LOPRESSOR) 25 mg immediate release tablet TAKE 1 TABLET(25 MG) BY MOUTH EVERY MORNING 90 tablet 3 023 2024 Discontinued(A lternate therapy) amLODIPine (NORVASC) 2.5 mg tablet TAKE 1 TABLET(2.5 MG) BY MOUTH DAILY 90 tablet 3 024 2024 Discontinued lisinopriL (PRINIVIL,ZESTRIL) 10 mg tablet Take 1 tablet (10 mg total) by mouth daily 30 tablet 11 024 2024 Discontinued(A lternate therapy) Active Problems Problem Noted Date Diagnosed Date Greater trochanteric bursitis of both hips 08/10 Tensor fascia shorty syndrome 08/10/2024 Osteoarthritis of left knee, unspecified osteoarthritis type 04/24/2024 Primary osteoarthritis of left knee 02/18/2024 Generalized anxiety disorder 10/13/2023 Recurrent major depression 10/13/2023 Dysthymia 10/13/2023 Arthralgia of both knees 07/07/2023 Chronic midline low back pain without sciatica 0 06/17/2023 Assessment & Plan (06/17/2023 10:00 AM ACADEMIC ADVISOR): Continue flexeril 10mg Q8 PRN Trial gabapentin 100mg Q8 TID Topical lidocaine patches 4%, on for 12 hours/off for 12 hours Will send [place] 5/325 PRN #[id number], discussed that this will [...] 07/21/2021 Assessment & Plan (07/21/2021 9:52 AM ACADEMIC ADVISOR): Baseline creatine 1.3-1.5 Creatine Within patient;s baseline at 1.3 CTM Received IV fluids 500 ml on admission for creatine 1.59 Statin intolerance 07/18/2021 Assessment & Plan (07/18/2021 3:39 PM ACADEMIC ADVISOR): History of statin intolerance -Continue ezetimibe and fenofibrate DM2 (diabetes mellitus, type 2) 07/18/2021 Assessment & Plan (07/19/2021 7:58 AM ACADEMIC ADVISOR): Follow glucose and rx with insulin Metformin held for now pending cath. Assessment & Plan (07/18/2021 3:41 PM ACADEMIC ADVISOR): -Hemoglobin A1c 6.1 -Hold home metformin while inpatient -SSI while admitted -Carb consistent diet -Accuchecks BPH (benign prostatic hyperplasia) 07/18/2021 Assessment & Plan (07/18/2021 3:59 PM ACADEMIC ADVISOR): BPH s/p TURP -Continue home finasteride and tamsulosin HLD (hyperlipidemia) 07/18/2021 Assessment & Plan (10/11/2024 11:06 AM CDT): Recommend statin therapy. Assessment & Plan (09/15/2024 10:52 AM CDT): Stable continue Zetia Assessment & Plan (08/31/2024 1:57 PM CDT): Impression: Chronic stable. Plan: Continue Zetia, fenofibrate Assessment & Plan (07/21/2021 8:10 AM ACADEMIC ADVISOR): LDL ok while on non-statins due to intolerance. Continue present Rx for now Assessment & Plan (07/20/2021 8:10 AM ACADEMIC ADVISOR): LDL ok while on non-statins due to intolerance. Continue present Rx for now Assessment & Plan (07/19/2021 7:57 AM ACADEMIC ADVISOR): LDL ok while on non-statins due to intolerance. Continue present Rx for now Assessment & Plan (07/18/2021 3:52 PM ACADEMIC ADVISOR): Lipid panel WNL -Continue ezetimibe and fenofibrate Peripheral vascular disease 07/18/2021 Assessment & Plan (10/11/2024 11:06 AM CDT): Patent lower extremity stents, noninvasive testing with no evidence of significant stenosis as well as exercise treadmill testing with no significant drop in SANTIAGO. Findings discussed with the patient, I suspect his symptoms are likely musculoskeletal orthopedic and etiology. He is going to follow up with his knee surgeon. Continue risk factor modification with ASA Plavix and statin therapy, repeat noninvasive testing ordered for 6 months. Assessment & Plan (09/15/2024 10:52 AM CDT): His ABIs are technically normal however on exam he does not have a palpable pulse, his iliac stents are widely patent on duplex. His symptoms clinically do not match his noninvasives testing, exercise Doppler stress test ordered for further evaluation ultimately may need a repeat CTA with runoff, some of his symptoms may also not be vascular in origin. Continue ASA Plavix and statin therapy. Assessment & Plan (08/31/2024 2:01 PM CDT): Impression: Patient has a history of a left common iliac stent placement several years ago. CT scan performed in September 2023 reveals stent is patent as well as focal stenosis to left popliteal artery behind the knee. He reports-limiting claudication to bilateral calves with his left worse than his right. Plan: Recommend updated lower extremity arterial duplex and an abdominal aorta iliac duplex. Patient will follow-up in 2 weeks to review results. PVOD (pulmonary veno-occlusive disease) 07/18/19 Assessment & Plan (07/18/2021 4:00 PM ACADEMIC ADVISOR): PVOD s/p bilateral iliac stents Unstable angina 07/18/2021 Overview (07/18/2021): Added automatically from request for surgery [id number] Assessment & Plan (07/21/2021 8:10 AM ACADEMIC ADVISOR): CP concerning for USA. troponins normal, ruled out for PA. I have recommended coronary angiography and this is scheduled for today. Pt has PAD Continue IV heparin, follow labs and adjust. Continue aspirin, plavix, beta carrie, Patient asymptomatic. Cardiac catheterization scheduled for tomorrow. NPO after midnight. Assessment & Plan (07/20/2021 8:10 AM ACADEMIC ADVISOR): CP concerning for USA. troponins normal, ruled out for PA. I have recommended coronary angiography and this is scheduled for Wednesday. Pt has PAD and radial approach may be preferred. Continue IV heparin, follow labs and adjust. Continue aspirin, plavix, beta carrie, Patient asymptomatic. Cardiac catheterization scheduled for tomorrow. NPO after midnight. Assessment & Plan (07/19/2021 7:56 AM ACADEMIC ADVISOR): CP concerning for USA. troponins normal, ruled out for PA. Brief left sided chest pain since admission. [...] (03/06/2021): Added automatically from request for surgery [id number] Presbyopia 02/03/2021 Assessment & Plan (08/12/2023 5:06 PM ACADEMIC ADVISOR): -Noting increased difficulty with near vision while reading -Recommended trialing higher power reading glasses Assessment & Plan (02/03/2021 2:44 PM CDT): Correctable to 20/25 right eye (OD) and left eye (OS). Update specs as desired. Rosacea 09/18/2020 Metatarsalgia of right foot 07/04/2020 Overview (07/04/2020): Added automatically from request for surgery [id number] Sesamoiditis 07/04/2020 Overview (07/04/2020): Added automatically from request for surgery [id number] Painful orthopaedic hardware 07/04/2020 Overview (07/04/2020): Added automatically from request for surgery [id number] Achilles tendon contracture, right 07/04/2020 Overview (07/04/2020): Added automatically from request for surgery [id number] Pseudarthrosis after fusion or arthrodesis 02/28 Overview (02/28/2019): Added automatically from request for surgery [id number] Diabetes mellitus type 2 without retinopathy 05/2019 Assessment & Plan (02/09/2023 3:33 PM CDT): Continue strict BS control, annual dilated eye exams. Assessment & Plan (06/17/2022 4:09 PM ACADEMIC ADVISOR): Continue strict BS control, annual dilated eye exams. Assessment & Plan (02/23/2019 10:32 AM CDT): Strict BS control, annual dilated eye exams. 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), bilateral 11/14/2018 Assessment & Plan (10/29/2024 8:35 PM CDT): -Follow up exam for AMD; last visit 08/12/2023 -Exam remains stable with drusen OU -Continue use of AREDS/Amsler -Patient prefers to maintain 6 month follow up interval -Patient had questions about Syfovre, gave TRI number to discuss as we do not offer -RTC 6 months Assessment & Plan (08/12/2023 5:05 PM ACADEMIC ADVISOR): -Follow up exam for AMD; last visit [...] 6months Assessment & Plan (06/17/2022 9:41 AM ACADEMIC ADVISOR): -No signs of exudation. -given the large [...] months Assessment & Plan (08/13/2021 3:12 PM ACADEMIC ADVISOR): No signs of exudation. Per AREDS study, [...] today on exam and by OCT C/w Alba MEJÍA. Continue to not smoke. Use sun protection F/u 6 mo, sooner if changes Discussed with patient that it is difficult to predict vision loss, but good vision now and taking appropriate precautions. Age-related nuclear cataract of both eyes 2018 Assessment & Plan (10/29/2024 8:35 PM CDT): NVS, follow. Assessment & Plan (06/17/2022 4:09 PM ACADEMIC ADVISOR): NVS, follow. Assessment & Plan (02/23/2019 10:32 [...] (06/08/2018): Added automatically from request for surgery [id number] Palpitations 04/15/2018 CAD (coronary artery disease) 03/08/2018 Assessment & Plan (09/04/2024 11:21 AM CDT): stable Assessment & Plan (07/18/2021 3:42 PM ACADEMIC ADVISOR): CAD s/p CABG in 2010 (KAUR-LAD which is known to be an atretic graft; vein graft-marginal; and vein graft-2nd marginal branch; RCA occluded, with collateral revascularization) -Last [facility] in 11/2018 showed patent KAUR graft [...] Diabetes mellitus type II, non insulin dependent ([facility]) 01/15/2018 Assessment & Plan (09/04/2024 11:21 AM CDT): Stable and doing well Assessment & Plan (07/21/2021 9:50 AM ACADEMIC ADVISOR): Hemoglobin a1c 6.1 - diet controlled for now Metformin on hold for [facility] Continue to monitor. Assessment & Plan (07/20/2021 8:11 AM ACADEMIC ADVISOR): Blood sugar stable. Follow-up blood sugar. Treat with insulin as appropriate Metformin being held. Assessment & Plan (02/28/2020 3:23 PM CDT): a1c at target, recommend annual eye exam. Feet are without lesions. 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 Hold metformin. Low-dose sliding scale. Primary hypertension 01/15/2018 Assessment & Plan (10/11/2024 11:06 AM CDT): Stable continue metoprolol Assessment & Plan (09/15/2024 10:52 AM CDT): Stable continue lisinopril Assessment & Plan (09/04/2024 11:21 AM CDT): Bp at target Assessment & Plan (08/31/2024 1:58 PM CDT): Impression: Chronic stable. Plan: Continue amlodipine lisinopril metoprolol Assessment & Plan (07/18/2021 3:53 PM ACADEMIC ADVISOR): BP currently well controlled -Continue amlodipine, lisinopril and metoprolol XL Assessment & Plan (02/28/2020 3:23 PM CDT): bp at target Assessment & Plan (11/22/2018 5:24 PM CDT): Continue home antihypertensives. Assessment & Plan (01/16/2018 10:37 AM CDT): Continue Metoprolol and Lisinopril Assessment & Plan (01/15/2018 4:52 AM CDT): Continue home lisinopril. Myocardial infarction 09/09/2017 Nonsustained ventricular tachycardia (CMS/HCC) 0 09/15/2016 Assessment & Plan (07/18/2021 4:06 PM ACADEMIC ADVISOR): -Continue metoprolol XL -Telemetry Assessment & Plan [...] sinus syndrome (CMS/HCC) 05/13/2015 Assessment & Plan (09/04/2024 11:21 AM CDT): stable Assessment & Plan (07/21/2021 8:10 AM ACADEMIC ADVISOR): Pacer function stable Continue present Rx. Continue beta-carrie. Assessment & Plan (07/20/2021 8:10 AM ACADEMIC ADVISOR): Pacer function stable Continue present Rx. Continue beta-carrie. 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 Maty Weber Assessment & Plan (02/28/2020 3:23 PM CDT): No palpitations, syncope Depressive disorder 03/15/2015 Panic disorder without agoraphobia 03/15/2015 Resolved Problems Problem Noted Date Diagnosed Date Resolved Date Pain in right foot 04/24/2022 4 LINUS (acute kidney injury) 07/18/2021 Assessment & Plan (07/21/2021 8:12 AM ACADEMIC ADVISOR): Pt with CKDstage 3, CrCl 50 ml/min. Creatinine improved. Cath today Assessment & Plan (07/20/2021 8:11 AM ACADEMIC ADVISOR): Pt with CKDstage 3, CrCl 50 ml/min. Repeat BMP today. IV hydration Mikal night before cath recommended. Assessment & Plan (07/19/2021 7:59 AM ACADEMIC ADVISOR): Pt with CKDstage 3, CrCl 50 ml/min. Stable. IV hydration Mikal night before cath recommended. Assessment & Plan (07/18/2021 3:44 PM ACADEMIC ADVISOR): LINUS (Cr 1.59 on admission) on CKD (baseline Cr 1.0-1.2) -S/p 500 ml LR bolus in ED -Follow BMPs Statin intolerance 02/10/2021 4 Syncope and collapse 12/30/2020 024 Encounter for screening colonoscopy 10/14/2020 06/17/2023 Overview (10/14/2020): Added automatically from request for surgery [id number] Joint pain 02/28/2020 06/17/2023 Assessment & Plan (04/29/2020 10:45 AM ACADEMIC ADVISOR): Medrol dose pack Tramadol Q6 PRN (use, safety, s/e reviewed) Referral to Pain Management Assessment & Plan (02/28/2020 3:25 PM CDT): xrays noted, check rheum panel (? H/o pos JENNIFER) Confusion 01/04/2019 06/17/2023 Chest pain 01/15/2018 06/17/2023 Assessment & Plan (07/21/2021 9:47 AM ACADEMIC ADVISOR): CAD s/p CABG (2010), admitted with chest [...] for chest pain -Telemetry monitoring NPO for [facility] Assessment & Plan (01/16/2018 10:39 AM [...] serious risk factors, especially with diabetes and s tatin intolerance despite a multivessel CABG in 2002 and [...] likelihood event needs to go for catheterization Encounters Date Type Department Care Team Description 10/25/2024 1:00 PM CDT Office Visit [facility] Orthopaedic Surgery [facility] Medicine 6th [place] [address] [place] [id number] Sudhir Martinez MD Greater trochanteric pain syndrome of right lower extremity (Primary Dx); Chronic right hip pain; Chronic knee pain after total replacement of left knee joint 10/23/2024 Telephone [facility] Cardiology [address] [facility] Medicine 8th [place] [address] [place] [address] Rigo Carroll MD BP updates 10/18/2024 10:15 AM CDT Lab [facility] Outpatient Lab at [address] [phone] Diabetes mellitus type 2 without retinopathy (HCC) (Primary Dx); High risk medications (not anticoagulants) long-term use 10/18/2024 10:10 AM CDT - 10/18/2024 11:59 PM CDT Hospital Encounter [address] [address] High risk medications (not anticoagulants) long-term use Discharge Disposition: Discharge to home or self care 10/18/2024 Results Follow-Up [facility] Cardiology [facility] 8th [place] [address] [place] [address] Rigo Carroll MD Basic metabolic panel, eGFR 10/16/2024 10:45 AM CDT - 10/16/2024 12:25 PM CDT [facility] [address] [place] [phone] Clifford Sandy MD CORONARY ARTERY AND GRAFT ANGIOGRAPHY [address] 10/16/2024 8:28 AM CDT - 10/16/2024 5:00 PM CDT Hospital [facility] [address] [place] [address] Clifford Sandy MD Coronary artery disease involving stillaguamish heart without angina pectoris, unspecified vessel or lesion type Discharge Disposition: Discharge to home or self care 10/16/2024 Results Follow-Up [facility] Cardiology [address] [place] [address] 8th [place] [address] [place] [address] Rigo Carroll MD Cardiac Catheterization 10/11/2024 8:45 AM CDT Office Visit [facility] Vascular at [address] [place] [phone] Ivet Montana MD Peripheral vascular disease (Primary Dx); Primary hypertension; Mixed hyperlipidemia 10/11/2024 Orders Only [facility] Health Information Management [address] [place] [address] Scanning, Provider 10/11/2024 Orders Only [facility] Vascular at [address] [place] [phone] Ivet Montana MD Atherosclerosis of stillaguamish artery of both lower extremities with intermittent claudication (Primary Dx); Other specified symptoms and signs involving the circulatory and respiratory systems 10/05/2024 10:00 AM CDT Office Visit [facility] Ophthalmology [address] [facility] 1st [place] [address] Sherri Jean-Baptiste MD 10/05/2024 Telephone [facility] Cardiology [address] [place] [address] [place] [address] Rigo Carroll MD follow up of previous orders 10/04/2024 1:17 PM CDT - 10/04/2024 11:59 PM CDT Hospital Encounter [facility] Medical Office Building [address] [place] [address] Atherosclerosis of stillaguamish artery of both lower extremities with intermittent claudication Discharge Disposition: Discharge to home or self care 10/03/2024 11:50 AM CDT - 10/03/2024 11:59 PM CDT Hospital Encounter [facility] [address] [place] [address] Coronary artery disease involving stillaguamish coronary artery of stillaguamish heart without angina pectoris Discharge Disposition: Discharge to home or self care 10/03/2024 11:45 AM CDT Lab [facility] Endocrinology Metabolism and Lipid [address] [place] [address] Coronary artery disease involving stillaguamish coronary artery of stillaguamish heart without angina pectoris 10/03/2024 10:30 AM CDT Office Visit [facility] Cardiology [address] [place] [address] Rigo Carroll MD Coronary artery disease involving stillaguamish coronary artery of stillaguamish heart without angina pectoris (Primary Dx); Primary hypertension; Pure hypercholesterolemia; Peripheral vascular disease; Presence of cardiac pacemaker 10/03/2024 9:15 AM CDT - 10/03/2024 11:59 PM CDT Hospital Encounter [facility] Cardiac Diagnostic Lab [address] [address] Cardiomyopathy, ischemic Discharge Disposition: Discharge to home or self care 10/03/2024 Results Follow-Up [facility] Cardiology [address] [place] [address] [place] [address] Rigo Carroll MD Pro B-type natriuretic peptide 10/03/2024 Results Follow-Up [facility] Cardiology [address] [facility] 8th [place] [address] [place] [phone] Rigo Carroll MD CBC with auto differential, Basic metabolic panel 10/03/2024 Telephone [facility] Cardiology [address] [facility] 8th [place] [address] [place] [address] Rigo Carroll MD Cath orders 09/13/2024 8:30 AM CDT Office Visit [facility] Vascular at [address] [place] [address] Ivet Montana MD Peripheral vascular disease (Primary Dx); Mixed hyperlipidemia; Primary hypertension 09/13/2024 Orders Only [facility] Vascular at [address] [place] [address] Ivet Montana MD Atherosclerosis of stillaguamish artery of both lower extremities with intermittent claudication (Primary Dx) 09/05/2024 10:00 AM CDT Ancillary Procedure [facility] Vascular and Vein Surgery at [address] [place] [address] Atherosclerosis of still[place]am[place] artery of both lower extremities with intermittent claudication 09/05/2024 10:00 AM CDT Ancillary Procedure [facility] Vascular and Vein Surgery at [address] [place] [address] Atherosclerosis of [place] artery of both lower extremities with intermittent claudication 09/05/2024 9:00 AM CDT Ancillary Procedure [facility] Vascular and Vein Surgery at [address] [place] [address] Atherosclerosis of [place] artery of both lower extremities with intermittent claudication; Other specified symptoms and signs involving the circulatory and respiratory systems 09/04/2024 10:30 AM CDT Office Visit [facility] [address] [facility] [address] [place] [address] Perry Romero MD Diabetes mellitus type II, non insulin dependent (HCC) (Primary Dx); Sick sinus syndrome (CMS/HCC) (HCC); Primary hypertension; Coronary artery disease involving stillaguamish heart without angina pectoris, unspecified vessel or lesion type 08/30/2024 9:15 AM CDT Office Visit [facility] Vascular at [address] [place] [address] Rosana Fink NP Peripheral vascular disease (Primary Dx); Mixed hyperlipidemia; Primary hypertension 08/30/2024 Orders Only [facility] Vascular at [address] [place] [address] Ivet Montana MD Atherosclerosis of stillagu[place] artery of both lower extremities with intermittent claudication (Primary Dx); Other specified symptoms and signs involving the circulatory and respiratory systems 08/10/2024 10:15 AM ACADEMIC ADVISOR - 08/10/2024 11:59 PM ACADEMIC ADVISOR Hospital Encounter [facility] Pain Center at the [facility] Medicine [facility]1 [facility] [address] [place] [address] Arthur Bateman MD Greater trochanteric bursitis of both hips (Primary Dx); Tensor fascia shorty syndrome; Spondylosis of lumbar region without myelopathy or radiculopathy Discharge Disposition: Discharge to home or self care 08/03/2024 Telephone [facility] Orthopaedic Surgery [address] [facility] Medical Office Building [address] [place] [address] Zbigniew Noel MD 08/03/2024 Telephone [facility] [address] [place] [address] [address], [place] [address] Perry Romero MD Referral to Vascular from Last 3 Months Immunizations Immunization Administration Dates Next Due Influenza, Quadrivalent, Spl it, Preservative Free, Intramuscular 06/03/2019,08/05/2017 Influenza, Trivalent, High D ose, Split, Preservative Free, Intramuscular 04/25/2024 Pfizer SARS-CoV-2 Monovalent Vaccination (12+ Yrs) PURPLE 06/19/2021 Surgical History Surgery Date Site/Laterality Comments ILIAC ARTERY STENT 2014? Left MENISCUS SURGERY 06/14/2011 - 06/13/2012 Left ROTATOR CUFF REPAIR 2014? Right CARDIAC STENT PLACEMENT 11/12/2018 - 12/11/2018 x2 CORONARY ARTERY BYPASS GRAFT 06/14/2002 - 06/13/2003 triple bypass CARDIAC CATHETERIZATION 11/22/2018 positive PA FOOT SURGERY 06/28/2018 Right right 1st MTP arthrodesis FOOT SURGERY 06/02/2019 Right right first metatarsophalangeal arthrodesis revision surgery removal of deep hardware right great toe iliac crest bone graft - Right CARDIAC PACEMAKER PLACEMENT 04/14/2015 - 05/13/2015 Dual-chamber Biotronik Eluna pacemaker COLONOSCOPY last one 01/01/2021 APPENDECTOMY 06/14/2000 - 06/13/2001 TRANSURETHRAL RESECTION OF PROSTATE 02/13/2020 - 03/13/2020 FOOT SURGERY 07/15/2020 - 08/11/2020 2nd metatarsophalangeal shortening KNEE ARTHROSCOPY CARDIAC CATHETERIZATION 10/16/2024 N/A Procedure: CORONARY ARTERY AND GRAFT ANGIOGRAPHY [id number]; Surgeon: Clifford Sandy MD; Location: [facility] CARDIAC VASCULAR TECHNOLOGIST; Service: Cardiovascular; Laterality: N/A; eval ffor ischemia, hx icm CABG 2002 [facility], most recent cath at [facility] [address] Sandy Pt has pacemaker-Dr. Weber DM-on Metformin, will instruct pt to hold night prior and day of Labs done 10/03/2024, in chart Pt will be Medical devices from this surgery are in the Medical Devices section. CARDIAC CATHETERIZATION 10/16/2024 N/A Procedure: Coronary Flow Velocity (CFR) / Instantaneous Flow Velocity (IFR), 1st Vessel; Surgeon: Clifford Sandy MD; Location: [facility] CARDIAC VASCULAR TECHNOLOGIST; Service: Cardiovascular; Laterality: N/A; Medical devices from this surgery are in the Medical Devices section. CARDIAC CATHETERIZATION 10/16/2024 N/A Procedure: IVUS/OCT CORS OR GRAFTS, FIRST VESSEL (+) [id number]; Surgeon: Clifford Sandy MD; Location: [facility] CARDIAC VASCULAR TECHNOLOGIST; Service: Cardiovascular; Laterality: N/A; Medical devices from this surgery are in the Medical Devices section. Medical History Medical History Date Comments Encounter for immunization Need for prophylactic vaccination and inoculation against influenza - Vaccines Prophylactic Need Against Influenza (Added by TW Conv) Diabetes mellitus (HCC) Heart attack (HCC) Heart failure (HCC) Atrial fibrillation (HCC) Poor circulation Depression Macular degeneration Anxiety Hypertension Fracture, fibula Fibula fracture Low back pain Foot pain Type 2 diabetes mellitus (HCC) Panic attack Chronic pain disorder Sleep apnea needs a new mach ine Hyperlipidemia SSS (sick sinus syndrome) (HCC) Aortic stenosis Family History Medical History Relation Name Comments Drug abuse Brother 1 Heart attack Brother 1 Heart disease Brother 1 50's Hypertension Brother 1 Lung cancer Brother 1 Stroke Brother 1 Lung cancer Brother 2 Rheum arthritis Brother 2 Arrhythmia Father Cancer Father Coronary artery disease Father Hypertension Father Anxiety disorder Mother Depression Mother Heart attack Mother late 40's Anesthesia problems Neg Hx Malig Hyperthermia Neg Hx Pseudochol deficiency Neg Hx Relation Name Status Comments Brother 1 Brother 2 Father Mother Social History Tobacco Use Types Packs/Day Years Used Date Smoking Tobacco: Former Cigarettes 1 28 2002 Smokeless Tobacco: Never Tobacco Cessation:Counseling Given: [...] How often do you attend chur or adventism services? 1 to 4 times per year 05/02/2021 Do you belong to any clubs o r organizations such as faith groups, unions, fraternal or athletic groups, or [...] on file Legal Sex Male 11:34 PM ACADEMIC ADVISOR Gender Identity Not on file Sexual Orientation Not on file Obstetrics History Last Filed Vital Signs Vital Sign Reading Time Taken Comments Blood Pressure 158/75 10/16/2024 3:45 PM CDT Pulse 70 10/16/2024 3:45 PM CDT Temperature 36.8 C (98.2 F) 10/16/2024 8:53 AM CDT Respiratory Rate 18 10/16/2024 3:30 PM CDT Oxygen Saturation 98% 10/16/2024 3:45 PM CDT Inhaled Oxygen Concentration - - Weight 96.2 kg (212 lb 1.3 oz) 10/16/2024 8:53 A M CDT Height 180.3 cm (5' 11 ) 10/16/2024 8:53 AM CDT Body Mass Index 29.58 10/16/2024 8:53 AM CDT Plan of Treatment Health Maintenance Due Date Last Done Comments Albumin Creatinine Ratio, Urine 1955 Depression Screening 1955 Hepatitis C Screening 1955 Foot Exam 1955 DTaP/Tdap/Td Vaccine (1 - Tdap) 1966 Hepatitis B Screening 1973 Pneumococcal vaccine 65+ (1 of 2 - PCV) 1974 Zoster Vaccine (1 of 2) 2005 Well Visit 65+ 2020 Covid-19 Vaccine (4 - 2023-2 5 season) 2024 06/19/2021, 09/06/2020, 08/09/2020 Lipid Panel 09/20/2024 09/21/2023, 07/16, 02/05/2022, Additional history exists Hemoglobin A1C 03/07/2025 09/04/2024, 03/14, 05/18/2023, Additional history exists Prostate Cancer Screening-PSA 06/17/2025, 02/05/2022, 01/21/2021 Dilated Eye Exam 10/05/2025 10/05/2024, , 08/12/2023, Additional history exists Fall Risk Assessment 10/16/2025 10/16/2024 eGFR 10/18/2025 10/18/2024, 09/13, 07/04/2024, Additional history exists Colon Cancer Screening-Colonoscopy 01/01/2031 01/01/2021 Colon Cancer Screening-CT Colonography Discontinued 01/01/2021 Colon Cancer Screening-DNA Stool Discontinued 01/02/20 Colon Cancer Screening-FIT Discontinued 01/01/2021 Colon Cancer Screening-Sigmoidoscopy Discontinued 01/01/2021 Abdominal Aortic Aneurysm (A AA) Screen Completed 09/27/2023, 03/29/2020 Influenza Vaccine Completed 04/25/2024, , 08/05/2017 Goals Goal Patient Goal Type Associated Problems Recent Progress Patient-Stated? Author CCM Chronic Pain Care Plan Chronic Care Management No change(08/10 10:32 AM ACADEMIC ADVISOR) No Brissa Muse, RN Note: Problem: Chronic Pain Goals: 1. Minimize further functional decline 2. Maximize quality of life 3. Control pain Strategies: - Activity/exercise program recommendation - Conservative stepwise pain medicine strategy with multi-disciplinary approach - Recommend healthy lifestyle strategies and compensatory methods as needed Medical Devices Implanted Type Area Naval Architect Device Identifier Shelf Expiration Date Model / Serial / Lot Terumo Medical Lewis Angio-Seal Vip 6fr Closere Device [id number] - [id number] - [id number] Implanted:Qty: 1 on 11/25/2022 by Eliecer Mixon MD at [facility] Collagen Ter[employer]o [employer] Lewis 06/13/2023 [id number] / [id number] / [id number] Ter[employer]o [employer] Lewis Angio-Seal Vip 6fr Closere Device [id number] - [id number] - [id number] Implanted:Qty: 1 on 10/16/2024 by Clifford Sandy MD at [facility] Collagen Left: Common Femoral Artery Ter[employer]o [employer] Lewis 05/01/2025 [id number] / [id number] / [id number] Lead (Ra)-05/08/2015 Implanted:05/08/2015 by Maty Weber MD (Quantity not on file) Lead Heart Biotronik 350 974 SETROX S 53 / [id number] / Lead (Rv)-05/08/2015 Implanted:05/08/2015 by Maty Weber MD (Quantity not on file) Lead Heart Biotronik 350 975 SETROX S 60 / [id number] / Pacemaker-05/08/2015 Implanted:05/08/2015 by Maty Weber MD (Quantity not on file) Pacemaker Left: Chest Biotronik [id number] ELUNA Shelby AGUILA / [id number] / Synthes 201.814 2mm 3.5mm 14mm Self Tap Cruciform Cortex Screw Bone Stainless - S0 - [id number] Implanted:Qty: 1 on 08/06/2020 by Zoey Sexton MD at [facility] Screw Synthes I 201.814 / 0 / Medtronic Card Vas Surgery 4.0 X 26mm [place] Rx Coronary Stent [id number] - [id number] - [id number] Implanted:Qty: 1 on 11/25/2022 by Clifford Sandy MD at [facility] Stent Medtronic Card Vasc Surgery 06/26/2025 [id number] / [id number] / [id number] Orthohelix [id number] Maxtorque 4mm 32.5mm Cannulated Self Drill Foot Ankle Long Thread - [id number] Implanted:Qty: 1 on 06/28/2018 at [facility] Right: Foot Orthohelix MSD-010- [id number] / / Orthohelix Security Installation Technician-002-Pmx Ortholink 3 Hole Sterling Foot Ankle Standard Plate Bone Nonsterile Latex Free - [id number] Implanted:Qty: 1 on 06/28/2018 at [facility] Right: Foot Orthohelix [place]ER-002- PMX / / Orthohelix [id number] Maxlock Extreme 4mm 16mm Nonlock Foot Ankle Screw Bone Nonsterile - [id number] Implanted:Qty: 1 on 06/28/2018 at [facility] Right: Foot Orthohelix [place]ER-011- 4016 / / Orthohelix [id number] Maxlock Extreme 4mm 18mm Nonlock Foot Ankle Screw Bone Nonsterile Latex Free - [id number] Implanted:Qty: 1 on 06/28/2018 at [facility] Right: Foot Orthohelix [place]ER-011- 40-18 / / Orthohelix [id number] Maxlock Extreme 4mm 14mm Nonlock Foot Ankle Screw Bone Nonsterile Latex Free - [id number] Implanted:Qty: 1 on 06/28/2018 at [facility] Right: Foot Orthohelix [place]ER-011- 4014 / / Daig Lewis[employer] [id number] Angio-Seal Evolution 6fr .035in Guidewire Bypass Tube Suture - [id number] Implanted:Qty: 1 on 11/22/2018 by Sarah Vasquez MD at [facility] Daig Lewis[employer] 08/12/2019 [id number] / / [id number] Medtronic Sofamor [place] [id number] Infuse 14mm 23mm Absorbable Sponge Sterile Water Syringe Needle - [id number] Implanted:Qty: 1 on 06/02/2019 by Zoey Sexton MD at [facility] Right: Foot Medtronic Inc 01/11/2021 [id number] / / [id number] Medline Industries Inc [id number] Plate Bone Medline Unite 0 D Medium Metatarsophalangeal Right Fusion Nonsterile - [id number] Implanted:Qty: 1 on 06/02/2019 by Zoey Sexton MD at [facility] Right: Foot Medline Industries Inc [id number] / / Medline Industries Inc [id number] Pin Fixation Medline Unite L10mm Od1.1mm - [id number] Implanted:Qty: 1 on 06/02/2019 by Zoey Sexton MD at [facility] Right: Foot [employer] Industries Inc [id number] / / Medline Industries Inc [id number] Screw Bone Medline Unite L34mm Od4.5mm Head Nonsterile - [id number] Implanted:Qty: 1 on 06/02/2019 by Zoey Sexton MD at [facility] Right: Foot [employer] Inc [id number] / / Medline Industries Inc [id number] Screw Bone Medline Unite L16mm Od3.5mm Foot Ankle Nonlock - [id number] Implanted:Qty: 1 on 06/02/2019 by Zoey Sexton MD at [facility] Right: Foot [employer]line Industries Inc [id number] / / Medline Industries Inc [id number] Screw Bone Medline Unite L18mm Od3.5mm Foot Ankle Nonlock - [id number] Implanted:Qty: 1 on 06/02/2019 by Zoey Sexton MD at [facility] Right: Foot [employer]line Industries Inc [id number] / / Medline Industries Inc [id number] Screw Bone Medline Unite L20mm Od3.5mm Foot Ankle Nonlock - [id number] Implanted:Qty: 2 on 06/02/2019 by Zoey Sexton MD at [facility] Right: Foot [employer] Inc [id number] / / [place] [employer] Triathlon Cruciate Retain Bead Knee Left 5 Component Femoral Pa 5517-F-501 - [id number] Implanted:Qty: 1 on 04/24/2024 by Zbigniew Noel MD at [facility] [employer] [id number] 02/27/2029 5517-F-5 01 / / [id number] [employer] Triathlon Knee 6 Baseplate Tibial Tritanium 5536-B-600 - [id number] Implanted:Qty: 1 on 04/24/2024 by Zbigniew Noel MD at [facility] [employer] [id number] 11/08/2028 5536-B-6 00 / / [id number] [employer] Insert Tibial Triathlon 6 H11mm Knee Bearing Condylar Stabilize Sterile 7184-A-343-E - [id number] Implanted:Qty: 1 on 04/24/2024 by Zbigniew Noel MD at [facility] [employer] [id number] 12/19/2028 5531-G-6 11-E / / [id number] Explanted Type Area Naval Architect Device Identifier Shelf Expiration Date Model / Serial / Lot Microaire Surgical Instruments [id number] Anne .45in 9in 1 [place] [employer] Wire Fixation - S0 - [id number] Explanted:Qty: 1 on 08/06/2020 by Zoey Sexton MD at [facility] Wire [employer] Instruments [id number] S / 0 / Description:Provisional fixa tion [employer] Instruments 1209-8926 Anne .062in 9in 1 [place] Smooth Wire Fixation - [id number] Explanted:Qty: 1 on 06/28/2018 at [facility] Right: Foot [employer] [id number] / / Description:Provisional fixa tion [employer] Instruments 6871-7716 Anne .062in 9in 1 [place] Smooth Wire Fixation - [id number] Explanted:Qty: 1 on 06/28/2018 at [facility] Right: Foot [employer] Instruments [id number] / / Description:Provisional fixa tion [employer] Instruments 6502-5375 Anne .062in 9in 1 [place] Smooth Wire Fixation - [id number] Explanted:Qty: 1 on 06/28/2018 at [facility] Right: Philippe Ardon [employer] Instruments [id number] / / Description:Provisional fixa tion Screw Explanted:Qty: 5 on 08/06/2020 by Zoey Sexton MD at [facility] Other / 0 / Plate Explanted:Qty: 1 on 08/06/2020 by Drew Espinosa MD at [facility] Other / 0 / Procedures Procedure Name Priority Date/Time Associated Diagnosis Comments EGFR Routine 10/18/2024 10:10 AM CDT High risk medications (not anticoagulants) long-term use BASIC METABOLIC PANEL Routine 10/18/2024 10:10 AM CDT High risk medications (not anticoagulants) long-term use POCT GLUCOSE DEVICE Routine 10/16/2024 3 :20 PM CDT CORONARY OCT, 1ST VESSEL Routine 10/16/2024 2:35 PM CDT Coronary artery disease involving [place] heart without angina pectoris, unspecified vessel or lesion type CORONARY FLOW VELOCITY (CFR) / INSTATANEOUS FLOW VELOCITY (IFR), 1ST VESSEL Routine 10/16/2024 2:35 PM CDT Coronary artery disease involving [place] heart without angina pectoris, unspecified vessel or lesion type RIGHT CORONARY ANGIOGRAPHY Routine 10/16/2024 2:35 PM CDT Coronary artery disease involving [place] heart without angina pectoris, unspecified vessel or lesion type POCT ACTIVATED CLOTTING TIME, LOW RANGE Routine 10/16/2024 2:30 PM CDT POCT ACTIVATED CLOTTING TIME, LOW RANGE Routine 10/16/2024 2:11 PM CDT CBC WITHOUT DIFFERENTIAL Routine 10/16/2024 12:35 PM CDT POCT GLUCOSE DEVICE Routine 10/16/2024 9 :19 AM CDT ECG 12-LEAD Routine 10/16/2024 8:32 AM CDT DEVICE CHECK - REMOTE 10/08/2024 3:10 AM CDT US LOWER EXTREMITY TREADMILL TESTING Schedule Routine, Read Routine (OP Routine) 10/04/2024 2:41 PM CDT Atherosclerosis of [place] artery of both lower extremities with intermittent claudication PRO B-TYPE NATRIURETIC PEPTIDE Routine 10/03/2024 11:50 AM CDT Coronary artery disease involving [place] coronary artery of [place] heart without angina pectoris BASIC METABOLIC PANEL Routine 10/03/2024 11:50 AM CDT Coronary artery disease involving [place] coronary artery of [place] heart without angina pectoris CBC WITH AUTO DIFFERENTIAL Routine 10/03/2024 11:50 AM CDT Coronary artery disease involving [place] coronary artery of [place] heart without angina pectoris TRANSTHORACIC ECHO (TTE) COMPLETE W DOPPLER/CF W CONTRAST Routine 10/03/2024 10:29 AM CDT Cardiomyopathy, ischemic VL US ARTERIAL DUPLEX LOWER EXTREMITY BILATERAL Schedule Routine, Read Routine (OP Routine) 09/05/2024 10:30 AM CDT Atherosclerosis of [place] artery of both lower extremities with intermittent claudication US SANITAGO Schedule Routine, Read Routine (OP Routine) 09/05/2024 10:30 AM CDT Atherosclerosis of [place] artery of both lower extremities with intermittent claudication US DUPLEX SCAN AORTA, IVC ILIAC COMPLETE Schedule Routine, Read Routine (OP Routine) 09/05/2024 10:30 AM CDT Atherosclerosis of [place] artery of both lower extremities with intermittent claudication Other specified symptoms and signs involving the circulatory and respiratory systems POCT HEMOGLOBIN A1C Routine 09/04/2024 10:38 AM CDT Diabetes mellitus type II, non insulin dependent (HCC) PAIN MGMT IMAGING SHOULDER, HIP, KNEE JOINT/BURSA INJ BILATERAL Schedule Routine, Read Routine (OP Routine) 08/10/2024 11:30 AM ACADEMIC ADVISOR Greater trochanteric bursitis of both hips CTA ABDOMINAL AORTA AND BILATERAL ILIOFEMORAL RUNOFF Schedule Routine, Read Routine (OP Routine) 09/27/2023 11:27 AM CDT Claudication in peripheral vascular disease POCT LIPID PANEL Routine 09/21/2023 9:27 AM CDT Mixed hyperlipidemia PSA SCREEN Routine 06/17/2023 10:13 AM ACADEMIC ADVISOR Prostate cancer screening COLONOSCOPY 01/01/2021 12:16 PM CDT from Last 3 Months or Most Recently Relevant to Health Maintenance Results * eGFR (10/18/2024 10:10 AM CDT) eGFR 70 >=60 mL/min/1. 73 m2 Comment: Interpretive Data Reference Interval Normal >/= 90 mL/min/1.73m2 Mildly decreased* 60 - 89 mL/min/1.73m2 Mildly to moderately decreased 45 - 59 mL/min/1.73m2 Moderately to severely decreased 30 - 44 mL/min/1.73m2 Severely decreased 15 - 29 mL/min/1.73m2 Kidney Failure < 15 mL/min/1.73m2 *Relative to young adult level Estimated glomerular [...] interpretive data was last reviewed 2021. Blood 10/18/2024 10:1 0 AM CDT 10/18/2024 4:30 PM CDT us Rigo Carroll MD LAB BLOOD ORDERABLES F inal Result [facility] [id number] [address] Department [place] [address] * Basic metabolic panel (10/18/2024 10:10 AM CDT) Sodium 137 135 - 145 mmol/L Potassium, pl 4.3 3.3 - 4.9 mmol/L [facility] Chloride 101 97 - 110 mmol/L [facility] CO2 22 22 - 32 mmol/L [facility] Anion gap 14 2 - 15 mmol/L [facility] BUN 18 6 - 25 mg/dL [facility] Creatinine 1.14 0.80 - 1.30 mg/dL [facility] Glucose 130 70 - 199 mg/dL [facility] Comment: Interpretive Data Fasting glucose >/= 126 [...] 2022. Calcium 10.0 8.5 - 10.3 mg/dL [facility] Blood 10/18/2024 10:1 0 AM CDT 10/18/2024 3:54 PM CDT Rigo Carroll MD LAB BLOOD ORDERABLES F inal Result [facility] [id number] [address] [place] [address] * POCT glucose (10/16/2024 3:20 PM CDT) Glucose, POC 95 70 - 199 mg/dL Blood 10/16/2024 3:20 PM CDT 10/16/2024 3:20 PM CDT us Clifford Sandy MD LAB POCT ORDERABLES - DEVICE Final Result [facility] Department [place] [address] * RIGHT CORONARY ANGIOGRAPHY, CORONARY FLOW VELOCITY (CFR) / INSTATANEOUS FLOW VELOCITY (IFR), 1ST VESSEL, CORONARY OCT, 1ST VESSEL (10/16/2024 2:35 PM CDT) Anatomical Region Laterality Modality X-Ray Angiograph y Impressions 10/16/2024 3:03 PM CDT Mild InStent restenosis of the ostium of the LM. LM LAD is positive by IFR with a diffuse gradient IVUS does reveal mild raciel-intimal hyperplasia minimal lumen area of 9 mm2 with a reference area of 12 mm2. Patent SVG to ramus and OM2 Known atretic KAUR to LAD PUNCHER AND FASTENER of the mid RCA THERAPEUTIC RECOMMENDATIONS: Left femoral artery sheath was removed and site closed with Angioseal. Patient may sit up in 2 hours. The patient has mild progression of InStent restenosis in the ostium LM. Even LM LAD is ischemic most the ischemia is in diffuse gradient. IVUS of the ostium of the LM does reveal a minimal stent area of 9 mm2. At this time, medical management is recommended. If he were to develop further symptoms of angina or dyspnea on exertion repeat angiogram can be performed to assess for progression of ISR the ostium of the LM. At this time there was adequate lumen area and inadequate ischemia from the ostium to warrant intervention. Aggressive risk factor modification and medical therapy for secondary prevention of coronary artery disease. The case was reviewed and discussed with the referring physician and patient. The referring physician will determine the future therapy and follow-up. I was present during the entire procedure and personally dictated or confirmed the above report. Narrative 10/16/2024 3:03 PM CDT Images from the original result were not included. Cardiovascular Procedure Center [facility] [address] [place] [address] CORONARY AND GRAFT REPORT Patient: Vicky Youssef : 1955 MR number: [id number] Date of Service: 10/16/2024 Senior Solutions Consultant: Clifford Sandy MD Fellow: Salvador Arita MD and Madalyn Reynaga MD Referring physician: Rigo Carroll MD INDICATION: worsening LV function, dyspnea PATIENT CLINICAL PROFILE: Vicky Youssef is a 69 y.o. male with a history of CABG s/p KAUR-LAD (atretic), SVG-Ramus/high OM, SVG-OM2, PCI to LM-LAD with a 4.0 mm [place] SHEMAR, mild LV dysfunction, who is presenting with worsening LV dysfunction and some dyspnea on exertion. PROCEDURE: The risks, benefits and alternatives of the procedures and moderate sedation were explained to the patient and informed consent was obtained. The patient was brought to the recyclable materials collector and placed on the table. Bilateral groins were prepped and draped in the usual sterile fashion. Ultrasound guidance was used to obtain access. I provided direct [id number] moderate conscious sedation which administered by independent trained nurse using fentanyl Versed for 60 minutes. The LEFT femoral artery site was infiltrated with 1% lidocaine. The vessel was accessed using a micropuncture kit and the modified Seldinger technique with a Micro needle, a wire was threaded into the vessel, and a 6 Fr Sheath was advanced over the wire into the vessel. 45 cm sheath was placed. Femoral angiogram was performed. Left coronary artery angiogram was performed using a 6 Fr EBU 4.0 guide catheter. Right coronary artery angiogram was performed using a 5 Fr AR 1 catheter. SVG to high OM/Ramus angiogram was performed using a 5 Fr AR 1 catheter. SVG to OM 2 angiogram was performed using a 5 Fr AR 1 catheter iFR and IVUS of the ostium of the LM was performed using Omni wire and IVUS catheter At the end of the procedure, the right femoral artery sheath was removed and site closed with Angioseal. Patient was transferred to the holding area in stable condition. RESULTS: Hemodynamics: Systemic aortic blood pressure was 124/66/89. Coronary Arteriography: Left main coronary: the LM is with mild InStent restenosis at 20 to 30%. There was mild ISR in the mid segment. Left anterior descending: The LAD proximally has a patent stent without significant InStent restenosis. Gives rise to high diagonal branch which is diffusely diseased the midportion of the LAD has mild disease. Apical LAD is relatively disease-free Left circumflex: Known to be occluded at the ostium Right coronary artery: The RCA has slow flow and a PUNCHER AND FASTENER in the mid segment which is unchanged Graft angiography: KAUR-LAD: Known to be atretic SVG-OM/Ramus: SVG to OM/high ramus is patent the anastomotic site is without significant disease has mild narrowing of the antegrade limb. Distal vessel is without significant disease the retrograde limb has progression of disease. SVG-OM2: The graft is patent with mild narrowing in the proximal segment the mid segment is relatively disease-free. Anastomotic site is without significant disease. iFR and IVUS of the LM/LAD: Given the mild narrowing and restenosis in the ostium of the LM, decision was made to ensure that there was no significant ischemia in the anterior wall territory given the reduction in the EF. Heparin was given. Omni pressure wire was normalized in the aorta. Wire was placed in the mid LAD. IFR assessment was positive. On pullback there was a diffuse gradient. We subsequently used intravascular ultrasound to better assess the ostium of the LM. IVUS did reveal new intimal hyperplasia the minimal lumen area was 9 mm2 at least. The reference area was about 12 mm2. Based on this decision made is made to defer intervention COMPLICATIONS: None. DIAGNOSTIC Rigo Carroll MD CV CARDIAC CATH PROCED URES Final Result * (ABNORMAL) POCT Activated clotting time, low range (10/16/2024 2:30 PM CDT) ACT 231(H) 123 - 168 sec POC Performer [id number] [facility] POC Device Number [id number] [facility] Blood 10/16/2024 2:30 PM CDT 10/16/2024 2:30 PM CDT Clifford Sandy MD LAB POCT ORDERABLES - DEVICE Final Result Performing Organization Address City/[facility]/ZIP Co de Phone Number [facility] One [facility] [place] [address] * (ABNORMAL) POCT Activated clotting time, low range (10/16/2024 2:11 PM CDT) Pathologist [facility] ACT 269(H) 123 - 168 sec POC Performer [id number] [facility] POC Device Number [id number] [facility] Blood 10/16/2024 2:11 PM CDT 10/16/2024 2:11 PM CDT Clifford Sandy MD LAB POCT ORDERABLES - DEVICE Final Result Performing Organization Address [facility] Co de Phone Number [facility] One [facility] [place] [address] * CBC without differential (10/16/2024 12:35 PM CDT) [facility] WBC See Comment 3.80 - 9.90 Comment:Credited, specimen c lotted. Hgb See Comment 13.0 - 17.5 [facility] Comment:Credited, specimen c lotted. Hct See Comment 38.9 - 50.3 [facility] Comment:Credited, specimen c lotted. Plt See Comment 150 - 400 [facility] Comment:Credited, specimen c lotted. MPV See Comment 9.1 - 12.3 [facility] Comment:Credited, specimen c lotted. RBC See Comment 4.30 - 5.80 [facility] Comment:Credited, specimen c lotted. MCV See Comment 81.3 - 96.4 [facility] Comment:Credited, specimen c lotted. MCH See Comment 27.1 - 33.3 [facility] Comment:Credited, specimen c lotted. MCHC See Comment 32.3 - 35.7 [facility] Comment:Credited, specimen c lotted. RDW CV See Comment 11.1 - 14.9 [facility] Comment:Credited, specimen c lotted. RDW SD See Comment 35.7 - 48.1 [facility] Comment:Credited, specimen c lotted. NRBC abs See Comment 0.00 - 0.01 [facility] Comment:Credited, specimen c lotted. Blood 10/16/2024 12:3 5 PM CDT 10/16/2024 2:05 PM CDT Narrative [facility] - 10/16/2024 2:33 PM CDT To be drawn after hydration bolus complete Clifford Sandy MD LAB BLOOD ORDERABLES Final Result Performing Organization Address [facility] Co de Phone Number [facility] [place] [address] * POCT glucose (10/16/2024 9:19 AM CDT) Glucose, POC 118 70 - 199 mg/dL Blood 10/16/2024 9:19 AM CDT 10/16/2024 9:19 AM CDT Clifford Sandy MD LAB POCT ORDERABLES - DEVICE Final Result Performing Organization Address [facility] de Phone Number [facility] [place] [employer] [place] [address] * ECG 12 lead (10/16/2024 8:32 AM CDT) Ventricular Rate EKG/Min 70 BPM [facility] Atrial Rate 70 BPM [facility] [place]-Interval (MSEC) 304 ms [facility] QRS-Interval (MSEC) 132 ms [facility] QT-Interval (MSEC) 374 ms [facility] QTc 403 ms [facility] P [place] 2 degrees [facility] R [place] 1 degrees [facility] T [place] 252 degrees [facility] Diagnosis Atrial-paced rhythm with prolonged AV conduction Left ventricular hypertrophy with QRS widening and repolarization abnormality ( Sokolow-Pereira , Hope product ) Cannot rule out Septal infarct , age undetermined Abnormal ECG When compared with ECG of 25-NOV-2022 12:06, no significant change Confirmed by ERNESTINE TAVERAS M.D ([id number]) on 10/17/2024 3:04:55 PM [facility] 10/16/2024 8:32 AM CDT 10/17/2024 3:04 PM CDT Clifford Sandy MD ECG ORDERABLES Lilia l Result [facility] * DEVICE CHECK - REMOTE (10/08/2024 3:10 AM CDT) Anatomical Region Laterality Modality Other 10/08/2024 3:10 AM CDT Narrative 10/11/2024 11:10 AM CDT Interpretation Summary: Battery and Leads (BL) Normal parameters noted on battery and lead(s) --- 35% remaining longevity (implanted 2014). Lead impedance, sensing, and threshold trends stable and appropriate. Presenting Rhythm (NJ) Atrial Pacing-Ventricular Pacing (AP-SEQUINS SPOOLER) --- AP/SEQUINS SPOOLER 70s. Arrhythmic events (AE) No new arrhythmic events in monitoring period --- Since 09/08/24: No AHR or VHR episodes. Transmission Information (TI) Device Summary Report Follow Up (FU) Patient's primary treating physician will be apprised of findings Procedure Note Maty Weber MD - 10/11/2024 Interpretation Summary: Battery and Leads (BL) Normal parameters noted on battery and lead(s) --- 35% remaining longevity(implanted 2014). Lead impedance, sensing, and threshold trends stableand appropriate. Presenting Rhythm (NJ) Atrial Pacing-Ventricular Pacing (AP-SEQUINS SPOOLER) --- AP/SEQUINS SPOOLER 70s. Arrhythmic events (AE) No new arrhythmic events in monitoring period --- Since 09/08/24: No AHRor VHR episodes. Transmission Information (TI) Device Summary Report Follow Up (FU) Patient's primary treating physician will be apprised of findings us Provider Scanning CV CARDI[facility] SERVICES PROCEDURES Final Result * US Lower Extremity Treadmill Testing (10/04/2024 2:41 PM CDT) Anatomical Region Laterality Modality Vascular Ultrasound 10/04/2024 1:37 PM CDT Narrative 10/05/2024 1:53 PM CDT Lower Extremity Arterial Doppler Report Patient Name: VICKY YOUSSEF D : 1955 Study Date: 10/04/2024 1:37:00 PM Gender: M Hoop Cutter: Leandra Frazier RN/RVT Ref Provider: IVET MONTANA Quality: Adequate Order Provider: IVET MONTANA PROCEDURES: Arterial Report: Bilateral lower extremity arterial Doppler exam at rest and with exercise. 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 HISTORY: Claudication lower extremities L>R. HTN/HLD/DM/CAD/PREV SMOKER. COMPARISONS: The previous exam was completed on 09/05/2024. Compared to prior RT PT/DP .89/.53 LT PT/DP .92/.74. MEASUREMENTS: Right Value Left Value Rt Brachial Pressure 158 mmHg Lt Brachial Pressure 151 mmHg Rt DIETARY SERVICES DIRECTOR Pressure 169 mmHg Lt DIETARY SERVICES DIRECTOR Pressure 163 mmHg Rt DPA Pressure 164 mmHg Lt DPA Pressure 150 mmHg Rt PT SANTIAGO Resting 1.07 Lt PT SANTIAGO Resting 1.03 Rt DP SANTIAGO Resting 1.04 Lt DP SANTIAGO Resting 0.95 FINDINGS: Right Posterior Tibial Artery Analysis: The posterior tibial waveform is multiphasic. Right Dorsalis Pedis Artery Analysis: The dorsalis pedis waveform is multiphasic. Left Posterior Tibial Artery Analysis: The posterior tibial waveform is multiphasic. Left Dorsalis Pedis Artery Analysis: The dorsalis pedis waveform is multiphasic. Comments: Patient walked 5 1/2 mins c/o cramping left calf. - CONCLUSIONS: 1. Ankle-brachial index of 0.9-1.3 is within normal limits in the bilateral lower extremities. 2. Pressure drop with exercise in the posterior tibial however minimal changes and ankle brachial index. ATTESTATION: I have reviewed and interpreted the pertinent images and measurements of this study. I attest to the conclusions in the final report that is provided above. Electronically Signed By: Ivet Montana MD 10/05/2024 1:31:20 PM CDT Procedure Note Ivet Montana MD - 10/05/2024 Lower Extremity Arterial Doppler Report Patient Name: VICKY YOUSSEFGriselda : 1955 Study Date: 10/04/2024 1:37:00 PM Gender: M Hoop Cutter: Leandra Frazier RN/RVT Ref Provider: IVET MONTANA Quality: Adequate Order Provider: IVET MONTANA PROCEDURES: Arterial Report: Bilateral lower extremity arterial Doppler exam at rest and withexercise. INDICATIONS: I70.213 Atherosclerosis of stillaguamish arteries of extremities withintermittent claudication, bilateral legs. HISTORY: Claudication lower extremities L>R. HTN/HLD/DM/CAD/PREV SMOKER. COMPARISONS: The previous exam was completed on 09/05/2024. Compared to prior RT PT/DP .89/.53 LT PT/DP .92/.74. MEASUREMENTS: Right Value Left Value Rt Brachial Pressure 158 mmHg Lt Brachial Pressure 151 mmHg Rt DIETARY SERVICES DIRECTOR Pressure 169 mmHg Lt DIETARY SERVICES DIRECTOR Pressure 163 mmHg Rt DPA Pressure 164 mmHg Lt DPA Pressure 150 mmHg Rt PT SANTIAGO Resting 1.07 Lt PT SANTIAGO Resting 1.03 Rt DP SANTIAGO Resting 1.04 Lt DP SANTIAGO Resting 0.95 FINDINGS: Right Posterior Tibial Artery Analysis: The posterior tibial waveform is multiphasic. Right Dorsalis Pedis Artery Analysis: The dorsalis pedis waveform is multiphasic. Left Posterior Tibial Artery Analysis: The posterior tibial waveform is multiphasic. Left Dorsalis Pedis Artery Analysis: The dorsalis pedis waveform is multiphasic. Comments: Patient walked 5 1/2 mins c/o cramping left calf. - CONCLUSIONS: 1. Ankle-brachial index of 0.9-1.3 is within normal limits in thebilateral lower extremities. 2. Pressure drop with exercise in the posterior tibial however minimalchanges and ankle brachial index. ATTESTATION: I have reviewed and interpreted the pertinent images and measurements ofthis study. I attest to the conclusions in the final report that is provided above. Electronically Signed By: Ivet Montana MD 10/05/2024 1:31:20 PM CDT us Ivet Montana MD [facility] [place]EDURES Final Result * Pro B-type natriuretic peptide (10/03/2024 11:50 AM CDT) NT-proBNP 208 <=300 pg/mL Comment: Interpretive Comments: A. Dyspnea in Acute Care Setting All Ages: < 300 pg/ml, acute heart failure unlikely. < 50 yrs: 300 - 450 pg/ml, further investigation warranted. > 450 pg/ml, acute heart failure likely. 50 - 74 yrs: 300 - 900 pg/ml, further investigation warranted. > 900 pg/ml, acute heart failure likely . > or = 75 yrs: 450 - 1800 pg/ml, further investigation warranted. > 1800 pg/ml, acute heart failure likely. B. Non-acute Setting < 75 yrs < 125 pg/ml, rules out heart failure. > or = 125 pg/ml, further investigation warranted. > or = 75 yrs < 450 pg/ml, rules out heart failure. > or = 450 pg/ml, further investigation warranted. - Knowledge of each individual patient's NT-proBNP range may be more useful than using similar cut-points for every patient. Please note that marked elevations in NT-proBNP levels may be observed in state other than Left Ventricular Congestive Failure, including: acute coronary syndromes, right heart strain/failure (including pulmonary embolism and cor pulmonale), critical illness, renal failure, as well as advanced age. - References: 1. Mellissa MONROE et.al. Eur Heart J. 2006:27:330-337. 2. Lexus DE LA VEGA, Cleo NAVARRO. J. AM Wilver Cardiol: Cardiovasc Imag. 2009;2: 216- 225. Interpretive Data Last Revised Date: 2018. Blood 10/03/2024 11:5 0 AM CDT 10/03/2024 1:23 PM CDT us Rigo Carroll MD LAB BLOOD ORDERABLES F inal Result [facility] One [facility] Department [place] [address] * CBC with auto differential (10/03/2024 11:50 AM CDT) White Blood Count 6.5 3.6 - 11.2 K/uL [facility] RBC 4.84 4.06 - 5.63 M/uL [facility] Hemoglobin 15.0 13.0 - 17.5 g/dL [facility] Hematocrit 44.6 40.7 - 50.3 % [facility] MCV 92.2 80.0 - 97.6 fL [facility] MCH 31.0 26.7 - 33.7 pg [facility] MCHC 33.6 32.7 - 35.5 g/dL [facility] RBC Dist Width 14.2 12.3 - 17.0 % [facility] Platelet Count 261 140 - 440 K/uL [facility] MPV 7.9 6.8 - 10.4 fL [facility] Neutrophils % 52.5 38.7 - 74.5 % [facility] Lymphocyte % 32.0 20.0 - 54.3 % [facility] Monocytes % 12.6 4.3 - 13.5 % [facility] Eosinophils % 2.1 0.0 - 6.0 % [facility] Basophil % 0.8 0.0 - 3.0 % [facility] Absolute Neutrophil 3.4 1.8 - 6.6 K/uL [facility] Absolute Lymphocyte 2.1 0.8 - 3.3 K/uL [facility] Absolute Monocyte 0.8 0.2 - 1.2 K/uL [facility] Absolute Eosinophil 0.1 0.0 - 0.5 K/uL [facility] Absolute Basophil 0.1 0.0 - 0.2 K/uL [facility] Nucleated RBC % 0.1 0.0 - 0.4 /100 WBC [facility] Blood 10/03/2024 11:5 0 AM CDT 10/03/2024 12:51 PM CDT Rigo Carroll MD LAB BLOOD ORDERABLES F inal Result [facility] * Basic metabolic panel (10/03/2024 11:50 AM CDT) [facility] Glucose 97 64 - 99 mg/dL [facility] Comment: NONFASTING GLUCOSE RANGE = 64-199 mg/dL FASTING GLUCOSE 64 - 99 = NORMAL FASTING GLUCOSE 100 - 125 = IMPAIRED FASTING GLUCOSE FASTING GLUCOSE >=126 = PROVISIONAL DIAGNOSIS OF DIABETES Potassium 4.5 3.3 - 5.1 mmol/L [facility] Creatinine 1.26 0.70 - 1.30 mg/dL [facility] BUN 17 7 - 23 mg/dL [facility] Sodium 140 135 - 145 mmol/L [facility] Chloride 100 95 - 107 mmol/L [facility] CO2 Content 28 21 - 29 mmol/L [facility] Calcium 9.9 8.6 - 10.3 mg/dL [facility] eGFR 61.7 >60.0 mL/min/1.7 3 m2 [facility] Blood 10/03/2024 11:5 0 AM CDT 10/03/2024 12:51 PM CDT us Rigo Carroll MD LAB BLOOD ORDERABLES F inal Result [facility] * TRANSTHORACIC ECHO (TTE) COMPLETE W DOPPLER/CF W CONTRAST (10/03/2024 10:29 AM CDT) Anatomical Region Laterality Modality Ultrasound 10/03/2024 9:38 AM CDT Narrative 10/03/2024 11:[address] [facility] [place] [address] Transthoracic Echocardiographic Report Patient Name: VICKY YOUSSEF D : 1955 (69y 6m) Gender: M Study Date: 10/03/2024 09:38:56 AM Ht(Inch): 71 Wt(Lb): 210.98 BSA: 2.19 Hoop Cutter: Soco Marcano RDCS Location: [facility] Order Provider: RIGO CARROLL Heart Rate: 70 BMI: 29.42 BP: 129 / 72 Ref Provider: RIGO CARROLL PROCEDURES: Echocardiographic Report: Transthoracic complete echo with strain imaging and contrast, 2D, spectral and tissue Doppler, color flow Doppler, M-mode. Contrast: Contrast Enhancement was Employed: After initial imaging due to sub- optimal quality related to co-morbidity defined by patient's body habitus and due to suboptimal image quality with inadequate visualization of at least 2 of 16 LV wall segments in any view after initial imaging. Perflutren contrast was administered using the volume necessary to obtain adequate images. 1.1 ml Optison Administered, (1.9 ml wasted). Technically difficult study due to: Body habitus. Poor acoustic windows. INDICATIONS: I25.5 Ischemic cardiomyopathy. CONCLUSIONS: 1. Normal left ventricular size based on volume index. Normal LV wall thickness. Moderately depressed left ventricular systolic function. The Ejection Fraction (Escobar's) is measured at 37 %. The average global longitudinal strain is abnormal. 2. Resting Segmental Wall Motion Analysis: Total wall motion score is 2.25. There is akinesis of the basal to mid inferior wall. There is hypokinesis of the basal to mid anteroseptal wall. There is hypokinesis of the entire inferoseptal wall. There is hypokinesis of the apical inferior wall. 3. Normal right ventricular size. Moderate right ventricular hypokinesis. 4. The left atrium is normal in size. The left atrium is normal in size. 5. The right atrium is normal in size. 6. Normal mitral valve structure. Mild mitral valve regurgitation. 7. Normal trileaflet aortic valve. Moderately thickened aortic valve leaflets. Mildly calcified aortic valve leaflets. Mildly restricted aortic cusps. Mild aortic valve regurgitation. Mild aortic valve stenosis. The mean transaortic gradient is 9 mmHg. The aortic valve area by the continuity equation (using VTI) is 1.24 cm2. Aortic valve dimensionless index is 0.29. Aortic stenosis with mild peak gradient 16 mm Hg mean gradient 9 mm Hg mild AR. 8. Normal pulmonic valve structure. Mild pulmonic regurgitation. 9. Normal pericardium without pericardial effusion. 10. Moderate segmental and global left ventricular systolic dysfunction with septal hypokinesis and dyssynchrony likely related to the pacemaker but also inferior akinesis and overall left ventricular ejection fraction about 35-40%. Mild calcific aortic stenosis and regurgitation. ATTESTATION: I have personally reviewed and interpreted this study without fellow or resident. - DISCLAIMER: The study images and the final report will be retained in the patient chart by the [facility] Laboratory for the legally required time period. This chart constitutes the legal record of any testing performed. FINDINGS: Left Ventricle: Normal left ventricular size based on volume index. Normal LV wall thickness. Moderately depressed left ventricular systolic function. The Ejection Fraction (Escobar's) is measured at 37 %. The average global longitudinal strain is abnormal. The LV global strain is: -7.7 %. Resting Segmental Wall Motion Analysis: Total wall motion score is 2.25. There is akinesis of the basal to mid inferior wall. There is hypokinesis of the basal to mid anteroseptal wall. There is hypokinesis of the entire inferoseptal wall. There is hypokinesis of the apical inferior wall. Right Ventricle: Normal right ventricular size. Moderate right ventricular hypokinesis. Left Atrium: The left atrium is normal in size. The left atrium is normal in size. Right Atrium: The right atrium is normal in size. Atrial Septum: Normal interatrial septum. Mitral Valve: Normal mitral valve structure. Mild mitral valve regurgitation. Aortic Valve: Normal trileaflet aortic valve. Moderately thickened aortic valve leaflets. Mildly calcified aortic valve leaflets. Mildly restricted aortic cusps. Mild aortic valve regurgitation. Mild aortic valve stenosis. The mean transaortic gradient is 9 mmHg. The aortic valve area by the continuity equation (using VTI) is 1.24 cm2. Aortic valve dimensionless index is 0.29. Aortic stenosis with mild peak gradient 16 mm Hg mean gradient 9 mm Hg mild AR. Tricuspid Valve: Normal tricuspid valve structure. Mild tricuspid regurgitation. Pulmonic Valve: Normal pulmonic valve structure. Mild pulmonic regurgitation. Pericardium: Normal pericardium without pericardial effusion. Aorta: Normal aortic root. Normal aortic root size at sinuses of Valsalva. Normal aortic root size when indexed. The ascending aorta is normal in size when indexed. IVC: IVC is normal in size. PASP: Normal estimated pulmonary artery systolic pressure. Pulmonary Artery: Normal pulmonary artery size. MEASUREMENTS: 2D/MM Value Range Doppler Value Range LVIDd 2D 5.45 cm [ 4.20 - 5.80 ] AV Peak Diaz 2.0 m/s [ 1.0 - 1.7 ] LVIDs 2D 4.13 cm [ 2.50 - 4.00 ] AV Peak PG 16.00 mmHg IVSd 2D 0.99 cm [ 0.60 - 1.00 ] AV Mean PG 9 mmHg LVPWd 2D 0.87 cm [ 0.60 - 1.00 ] AV VTI 38.5 cm LV Thickness Ratio 1.1 LVOT Peak Diaz 0.5 m/s [ 0.7 - 1.1 ] LV FS 2D 24.20 % [ 25.00 - 43.00 ] LVOT Peak PG 1.00 mmHg LV Mass 2D 196.09 g LVOT Mean PG 1 mmHg LV Mass Index 2D 89.54 g/m2 LVOT VTI 11.3 cm RWT 0.32 LVOT Diam 2.32 cm EDV Mod BP 141.02 ml [ 62.00 - 150.00 ] MELISA VTI 1.24 cm2 LV EDV Index 64.39 ml/m2 LVOT/AV VTI 0.29 - Dimensionless index (DVI) ESV Mod BP 91.62 ml [ 21.00 - 61.00 ] AI Peak Diaz 3.8 m/s EF Mod BP 37 % [ 52 - 72 ] AI Peak PG 60 mmHg LV GLS -7.7 % [ -25.0 - -18.0 ] AI Decel Time 1348.25 sec LA Length 4C 5.23 cm AI Decel Stafford 2.86 m/s2 LA Length 2C 4.36 cm AI PHT 390.99 msec LA Volume BP 50.69 ml Lat E` Diaz 4.0 cm/sec [ 10.0 - 25.0 ] LA Volume Index 23.15 ml/m2 [ 16.00 - 34.00 ] RV S` 7.62 cm/sec RV Base Dimen 2D 3.9 cm [ 2.5 - 4.2 ] PV Peak Diaz 0.8 m/s [ 0.4 - 0.8 ] TAPSE 0.94 cm [ 1.71 - 5.00 ] PV Peak PG 2.56 mmHg RA Volume 37.65 ml RA Volume Index 17.19 ml/m2 IVC Diam 1.47 cm AoR Diam 2D 3.44 cm [ 3.10 - 3.70 ] Ao Root Index 1.57 cm/m2 [ 1.00 - 2.00 ] Asc Ao Diam 2D 3.42 cm Asc Ao Index 1.56 cm/m2 Electronically Signed By: Rigo Carroll M.D. 10/03/2024 11:12:15 AM CDT CC: Rigo Carroll M.D. Procedure Note Rigo Carroll MD - 10/03/2024 [facility] [place] [address] Transthoracic Echocardiographic Report Patient Name: VICKY YOUSSEF D : 1955 (69y 6m) Gender: M Study Date: 10/03/2024 09:38:56 AM Ht(Inch): 71 Wt(Lb): 210.98 BSA: 2.19 Hoop Cutter: Soco Marcano RDCS Location: [facility] Order Provider:RIGO CARROLL Heart Rate: 70 BMI: 29.42 BP: 129 / 72 Ref Provider: RIOG CARROLL PROCEDURES: Echocardiographic Report: Transthoracic complete echo with strain imagingand contrast, 2D, spectral and tissue Doppler, color flow Doppler, M-mode. Contrast: Contrast Enhancement was Employed: After initial imaging due tosub- optimal quality related to co-morbidity defined by patient's body habitus and dueto suboptimal image quality with inadequate visualization of at least 2 of 16 LV wallsegments in any view after initial imaging. Perflutren contrast was administered using thevolume necessary to obtain adequate images. 1.1 ml Optison Administered, (1.9 mlwasted). Technically difficult study due to: Body habitus. Poor acoustic windows. INDICATIONS: I25.5 Ischemic cardiomyopathy. CONCLUSIONS: 1. Normal left ventricular size based on volume index. Normal LV wallthickness. Moderately depressed left ventricular systolic function. The EjectionFraction (Escobar's) is measured at 37 %. The average global longitudinal strain isabnormal. 2. Resting Segmental Wall Motion Analysis: Total wall motion score is2.25. There is akinesis of the basal to mid inferior wall. There is hypokinesis of thebasal to mid anteroseptal wall. There is hypokinesis of the entire inferoseptal wall.There is hypokinesis of the apical inferior wall. 3. Normal right ventricular size. Moderate right ventricularhypokinesis. 4. The left atrium is normal in size. The left atrium is normal in size. 5. The right atrium is normal in size. 6. Normal mitral valve structure. Mild mitral valve regurgitation. 7. Normal trileaflet aortic valve. Moderately thickened aortic valveleaflets. Mildly calcified aortic valve leaflets. Mildly restricted aortic cusps. Mildaortic valve regurgitation. Mild aortic valve stenosis. The mean transaortic gradientis 9 mmHg. The aortic valve area by the continuity equation (using VTI) is 1.24 cm2.Aortic valve dimensionless index is 0.29. Aortic stenosis with mild peak gradient 16mm Hg mean gradient 9 mm Hg mild AR. 8. Normal pulmonic valve structure. Mild pulmonic regurgitation. 9. Normal pericardium without pericardial effusion. 10. Moderate segmental and global left ventricular systolic dysfunctionwith septal hypokinesis and dyssynchrony likely related to the pacemaker but alsoinferior akinesis and overall left ventricular ejection fraction about 35-40%. Mild calcific aortic stenosis and regurgitation. ATTESTATION: I have personally reviewed and interpreted this study without fellow orresident. - DISCLAIMER: The study images and the final report will be retained in the patientchart by the Echo Laboratory for the legally required time period. This chart constitutesthe legal record of any testing performed. FINDINGS: Left Ventricle: Normal left ventricular size based on volume index. NormalLV wall thickness. Moderately depressed left ventricular systolic function. TheEjection Fraction (Escobar's) is measured at 37 %. The average global longitudinal strain isabnormal. The LV global strain is: -7.7 %. Resting Segmental Wall Motion Analysis: Total wall motion score is 2.25.There is akinesis of the basal to mid inferior wall. There is hypokinesis of thebasal to mid anteroseptal wall. There is hypokinesis of the entire inferoseptal wall.There is hypokinesis of the apical inferior wall. Right Ventricle: Normal right ventricular size. Moderate right ventricularhypokinesis. Left Atrium: The left atrium is normal in size. The left atrium is normalin size. Right Atrium: The right atrium is normal in size. Atrial Septum: Normal interatrial septum. Mitral Valve: Normal mitral valve structure. Mild mitral valveregurgitation. Aortic Valve: Normal trileaflet aortic valve. Moderately thickened aorticvalve leaflets. Mildly calcified aortic valve leaflets. Mildly restricted aortic cusps.Mild aortic valve regurgitation. Mild aortic valve stenosis. The mean transaortic gradientis 9 mmHg. The aortic valve area by the continuity equation (using VTI) is 1.24 cm2.Aortic valve dimensionless index is 0.29. Aortic stenosis with mild peak gradient 16mm Hg mean gradient 9 mm Hg mild AR. Tricuspid Valve: Normal tricuspid valve structure. Mild tricuspidregurgitation. Pulmonic Valve: Normal pulmonic valve structure. Mild pulmonicregurgitation. Pericardium: Normal pericardium without pericardial effusion. Aorta: Normal aortic root. Normal aortic root size at sinuses of Valsalva.Normal aortic root size when indexed. The ascending aorta is normal in size whenindexed. IVC: IVC is normal in size. PASP: Normal estimated pulmonary artery systolic pressure. Pulmonary Artery: Normal pulmonary artery size. MEASUREMENTS: 2D/MM Value Range DopplerValue Range LVIDd 2D 5.45 cm [ 4.20 - 5.80 ] AV Peak Vel2.0 m/s [ 1.0 - 1.7 ] LVIDs 2D 4.13 cm [ 2.50 - 4.00 ] AV Peak PG16.00 mmHg IVSd 2D 0.99 cm [ 0.60 - 1.00 ] AV Mean PG9 mmHg LVPWd 2D 0.87 cm [ 0.60 - 1.00 ] AV VTI38.5 cm LV Thickness Ratio 1.1 LVOT Peak Vel0.5 m/s [ 0.7 - 1.1 ] LV FS 2D 24.20 % [ 25.00 - 43.00 ] LVOT Peak PG1.00 mmHg LV Mass 2D 196.09 g LVOT Mean PG1 mmHg LV Mass Index 2D 89.54 g/m2 LVOT VTI11.3 cm RWT 0.32 LVOT Diam2.32 cm EDV Mod BP 141.02 ml [ 62.00 - 150.00 ] MELISA VTI1.24 cm2 LV EDV Index 64.39 ml/m2 LVOT/AV VTI0.29 - Dimensionless index (DVI) ESV Mod BP 91.62 ml [ 21.00 - 61.00 ] AI Peak Vel3.8 m/s EF Mod BP 37 % [ 52 - 72 ] AI Peak PG60 mmHg LV GLS -7.7 % [ -25.0 - -18.0 ] AI Decel Vean1966.25 sec LA Length 4C 5.23 cm AI Decel Slope2.86 m/s2 LA Length 2C 4.36 cm AI WPZ660.99 msec LA Volume BP 50.69 ml Lat E` Vel4.0 cm/sec [ 10.0 - 25.0 ] LA Volume Index 23.15 ml/m2 [ 16.00 - 34.00 ] RV S`7.62 cm/sec RV Base Dimen 2D 3.9 cm [ 2.5 - 4.2 ] PV Peak Vel0.8 m/s [ 0.4 - 0.8 ] TAPSE 0.94 cm [ 1.71 - 5.00 ] PV Peak PG2.56 mmHg RA Snihmx46.65 ml RA Volume Index17.19 ml/m2 IVC Diam1.47 cm AoR Diam 2D 3.44 cm [ 3.10 - 3.70 ] Ao Root Index 1.57 cm/m2 [ 1.00 - 2.00 ] Asc Ao Diam 2D3.42 cm Asc Ao Index1.56 cm/m2 Electronically Signed By: Rigo Carroll M.D. 10/03/2024 11:12:15 AM CDT CC: Rigo Carroll M.D. us Rigo Carroll MD CV ECHO PROCEDURES Fin al Result * US Arterial Duplex Lower Extremity Bilateral (09/05/2024 10:30 AM CDT) Anatomical Region Laterality Modality Vascular Bilateral Ultrasound 09/05/2024 9:33 AM CDT Narrative 09/06/2024 2:37 PM CDT [facility] [address] [address] Lower Extremity Arterial Duplex Report Patient Name: VICKY YOUSSEF D : 1955 (69y 5m) Gender: M Study Date: 09/05/2024 09:33:41 AM Ht(Inch): Wt(Lb): BSA: Hoop Cutter: CORI Location: [facility] Order Provider: IVET MONTANA Quality: Adequate Ref Provider: IVET MONTANA PROCEDURES: Arterial Report: A non-invasive vascular imaging study of the bilateral lower extremity arteries was performed using B-mode ultrasound, color flow, and spectral Doppler. INDICATIONS: R>L claudication, remote hx BCIA stents. HISTORY: HTN. HLD. DM. CAD-PA S/P stent/CABG. Afib. Pacemaker. Former smoker. COMPARISONS: Prior CTA on 09/27/23. MEASUREMENTS: Right Value Left Value Rt MECHANIC ASSISTANT Dst PSV 77.00 cm/sec Lt MECHANIC ASSISTANT Dst PSV 87.00 cm/sec Rt Profunda Prx PSV 46.00 cm/sec Lt Profunda Prx PSV 62.00 cm/sec Rt SFA Prx PSV 74.00 cm/sec Lt SFA Prx PSV 68.00 cm/sec Rt SFA Mid PSV 69.00 cm/sec Lt SFA Mid PSV 111.00 cm/sec Rt SFA Dst PSV 48.00 cm/sec Lt SFA Dst PSV 49.00 cm/sec Rt Pop Prx PSV 37.00 cm/sec Lt Pop Prx PSV 147.00 cm/sec Rt Pop Dst PSV 58.00 cm/sec Lt Pop Dst PSV 54.00 cm/sec Rt TP Trunk PSV 35.00 cm/s Lt TP Trunk PSV 53.00 cm/s Rt Ant Tibial Prx PSV 180.00 cm/sec Lt Ant Tibial Prx PSV 25.00 cm/sec Rt Post Tibial Prx PSV 46.00 cm/sec Lt Post Tibial Prx PSV 101.00 cm/sec Rt Post Tibial Mid PSV 141.00 cm/sec Lt Post Tibial Mid PSV 56.00 cm/sec Rt Peroneal Prx PSV 40.00 cm/sec Lt Peroneal Prx PSV 35.00 cm/sec Rt Peroneal Mid PSV 26.00 cm/sec Lt Peroneal Mid PSV 39.00 cm/sec FINDINGS: Right: Triphasic arteries include the right common femoral artery, proximal superficial femoral artery, mid superficial femoral artery and popliteal artery. Biphasic arteries include the right profunda femoral artery, distal superficial femoral artery, tibeoperoneal trunk, anterior tibial artery, posterior tibial artery and peroneal artery. Increased velocities noted of the right anterior tibial artery and posterior tibial artery. Left: Triphasic arteries include the left common femoral artery, profunda femoral artery, mid superficial femoral artery, distal superficial femoral artery and popliteal artery. Biphasic arteries include the left proximal superficial femoral artery, tibeoperoneal trunk, anterior tibial artery, posterior tibial artery and peroneal artery. Increased velocities noted of the left popliteal artery (ratio 3.4). CONCLUSION: 1. No flow-limiting stenosis in the right lower extremity identified based on velocity criteria. 2. No flow-limiting stenosis identified in the left lower extremity based on velocity criteria. ATTESTATION: I have reviewed and interpreted the pertinent images and measurements of this study. I attest to the conclusions in the final report that is provided above. Electronically Signed By: Ivet Montana MD 09/06/2024 1:48:05 PM CDT Procedure Note Ivet Montana MD - 09/06/2024 [facility] [address] [address] Lower Extremity Arterial Duplex Report Patient Name: VICKY YOUSSEF D : 1955 (69y 5m) Gender: M Study Date: 09/05/2024 09:33:41 AM Ht(Inch): Wt(Lb): BSA: Hoop Cutter: CORI Location: [facility] Order Provider: IVET MONTANA Quality: Adequate Ref Provider: IVET MONTANA PROCEDURES: Arterial Report: A non-invasive vascular imaging study of the bilaterallower extremity arteries was performed using B-mode ultrasound, color flow, and spectralDoppler. INDICATIONS: R>L claudication, remote hx BCIA stents. HISTORY: HTN. HLD. DM. CAD-PA S/P stent/CABG. Afib. Pacemaker. Former smoker. COMPARISONS: Prior CTA on 09/27/23. MEASUREMENTS: Right Value Left Value Rt MECHANIC ASSISTANT Dst PSV 77.00 cm/sec Lt MECHANIC ASSISTANT Dst PSV 87.00 cm/sec Rt Profunda Prx PSV 46.00 cm/sec Lt Profunda Prx PSV 62.00 cm/sec Rt SFA Prx PSV 74.00 cm/sec Lt SFA Prx PSV 68.00 cm/sec Rt SFA Mid PSV 69.00 cm/sec Lt SFA Mid PSV 111.00 cm/sec Rt SFA Dst PSV 48.00 cm/sec Lt SFA Dst PSV 49.00 cm/sec Rt Pop Prx PSV 37.00 cm/sec Lt Pop Prx PSV 147.00 cm/sec Rt Pop Dst PSV 58.00 cm/sec Lt Pop Dst PSV 54.00 cm/sec Rt TP Trunk PSV 35.00 cm/s Lt TP Trunk PSV 53.00 cm/s Rt Ant Tibial Prx PSV 180.00 cm/sec Lt Ant Tibial Prx PSV 25.00 cm/sec Rt Post Tibial Prx PSV 46.00 cm/sec Lt Post Tibial Prx PSV 101.00 cm/sec Rt Post Tibial Mid PSV 141.00 cm/sec Lt Post Tibial Mid PSV 56.00 cm/sec Rt Peroneal Prx PSV 40.00 cm/sec Lt Peroneal Prx PSV 35.00 cm/sec Rt Peroneal Mid PSV 26.00 cm/sec Lt Peroneal Mid PSV 39.00 cm/sec FINDINGS: Right: Triphasic arteries include the right common femoral artery,proximal superficial femoral artery, mid superficial femoral artery and popliteal artery.Biphasic arteries include the right profunda femoral artery, distal superficial femoralartery, tibeoperoneal trunk, anterior tibial artery, posterior tibial artery andperoneal artery. Increased velocities noted of the right anterior tibial artery andposterior tibial artery. Left: Triphasic arteries include the left common femoral artery, profundafemoral artery, mid superficial femoral artery, distal superficial femoral artery andpopliteal artery. Biphasic arteries include the left proximal superficial femoral artery,tibeoperoneal trunk, anterior tibial artery, posterior tibial artery and peronealartery. Increased velocities noted of the left popliteal artery (ratio 3.4). CONCLUSION: 1. No flow-limiting stenosis in the right lower extremity identified basedon velocity criteria. 2. No flow-limiting stenosis identified in the left lower extremity basedon velocity criteria. ATTESTATION: I have reviewed and interpreted the pertinent images and measurements ofthis study. I attest to the conclusions in the final report that is provided above. Electronically Signed By: Ivet Montana MD 09/06/2024 1:48:05 PM CDT us Ivet Montana MD IM US PROCEDURES Final Result * US SANTIAGO (09/05/2024 10:30 AM CDT) Anatomical Region Laterality Modality Vascular N/A Ultrasound 09/05/2024 8:50 AM CDT Narrative 09/06/2024 2:37 PM CDT [facility] [address] [place] [address] Lower Extremity Arterial Doppler Report Patient Name: VICKY YOUSSEF D : 1955 Study Date: 09/05/2024 8:50:00 AM Gender: M Hoop Cutter: Maureen Vásquez RVT Location: [facility] Ref Provider: IVET MONTANA Quality: Adequate Order Provider: IVET MONTANA PROCEDURES: Arterial Report: Ankle - Brachial Index Doppler exam. INDICATIONS: Remote hx BCIA stents; R>L claudication. HISTORY: HTN. HLD. DM. CAD-PA S/P stent/CABG. Afib. Pacemaker. Former smoker. COMPARISONS: The previous exam was completed on 11/19/23. Compared to prior there is disease progression at bilateral dorsalis pedis arteries. MEASUREMENTS: Right Value Left Value Rt Brachial Pressure 159 mmHg Lt Brachial Pressure 146 mmHg Rt DIETARY SERVICES DIRECTOR Pressure 142 mmHg Lt DIETARY SERVICES DIRECTOR Pressure 147 mmHg Rt DPA Pressure 84 mmHg Lt DPA Pressure 118 mmHg Rt PT SANTIAGO Resting 0.89 Lt PT SANTIAGO Resting 0.92 Rt DP SANTIAGO Resting 0.53 Lt DP SANTIAGO Resting 0.74 FINDINGS: Right Posterior Tibial Artery Analysis: The posterior tibial waveform is triphasic. Right Anterior Tibial Artery Analysis: The anterior tibial waveform is monophasic. Left Posterior Tibial Artery Analysis: The posterior tibial waveform is triphasic. Left Anterior Tibial Artery Analysis: The anterior tibial waveform is biphasic. CONCLUSIONS: 1. Ankle-brachial index of 0.8-0.9 is consistent with mild occlusive arterial disease in the right lower extremity. 2. Ankle-brachial index of 0.9-1.3 is within normal limits in the left lower extremity. 3. There is evidence of right leg arterial insufficiency at the level of anterior tibial artery. 4. There is evidence of left leg arterial insufficiency at the level of anterior tibial artery. ATTESTATION: I have reviewed and interpreted the pertinent images and measurements of this study. I attest to the conclusions in the final report that is provided above. Electronically Signed By: Ivet Montana MD 09/06/2024 1:45:46 PM CDT Procedure Note Ivet Montana MD - 09/06/2024 [facility] [address] [place] [address] Lower Extremity Arterial Doppler Report Patient Name: VICKY YOUSSEF Griselda : 1955 Study Date: 09/05/2024 8:50:00 AM Gender: M Hoop Cutter: Maureen Vásquez RVT Location: [facility] Ref Provider: IVET MONTANA Quality: Adequate Order Provider: IVET MONTANA PROCEDURES: Arterial Report: Ankle - Brachial Index Doppler exam. INDICATIONS: Remote hx BCIA stents; R>L claudication. HISTORY: HTN. HLD. DM. CAD-PA S/P stent/CABG. Afib. Pacemaker. Former smoker. COMPARISONS: The previous exam was completed on 11/19/23. Compared to prior there is disease progression at bilateral dorsalis pedisarteries. MEASUREMENTS: Right Value Left Value Rt Brachial Pressure 159 mmHg Lt Brachial Pressure 146 mmHg Rt DIETARY SERVICES DIRECTOR Pressure 142 mmHg Lt DIETARY SERVICES DIRECTOR Pressure 147 mmHg Rt DPA Pressure 84 mmHg Lt DPA Pressure 118 mmHg Rt PT SANTIAGO Resting 0.89 Lt PT SANTIAGO Resting 0.92 Rt DP SANTIAGO Resting 0.53 Lt DP SANTIAGO Resting 0.74 FINDINGS: Right Posterior Tibial Artery Analysis: The posterior tibial waveform is triphasic. Right Anterior Tibial Artery Analysis: The anterior tibial waveform is monophasic. Left Posterior Tibial Artery Analysis: The posterior tibial waveform is triphasic. Left Anterior Tibial Artery Analysis: The anterior tibial waveform is biphasic. CONCLUSIONS: 1. Ankle-brachial index of 0.8-0.9 is consistent with mild occlusivearterial disease in the right lower extremity. 2. Ankle-brachial index of 0.9-1.3 is within normal limits in the leftlower extremity. 3. There is evidence of right leg arterial insufficiency at the level ofanterior tibial artery. 4. There is evidence of left leg arterial insufficiency at the level ofanterior tibial artery. ATTESTATION: I have reviewed and interpreted the pertinent images and measurements ofthis study. I attest to the conclusions in the final report that is provided above. Electronically Signed By: Ivet Montana MD 09/06/2024 1:45:46 PM CDT us Ivet Montana MD IMG US PROCEDURES Final Result * US Duplex Scan Aorta, IVC Iliac Complete (09/05/2024 10:30 AM CDT) Anatomical Region Laterality Modality Vascular N/A Ultrasound 09/05/2024 8:52 AM CDT Narrative 09/06/2024 2:37 PM CDT [facility] [address] [place] [address] Abdominal Aortic Duplex Ultrasound Report Patient Name: VICKY YOUSSEF D : 1955 Study Date: 09/05/2024 8:52:47 AM Gender: M Hoop Cutter: Location: [facility] Ref Provider: IVET MONTANA Quality: Adequate Order Provider: IVET MONTANA PROCEDURES: Arterial Report: Duplex ultrasound imaging of the abdominal aorta. INDICATIONS: Hx remote BCIA stents; R>L claudication - COMPARISONS: Prior CTA 09/27/23. STENTS: Velocities Value Aorta Prx PSV 51.00 cm/sec Aorta Mid PSV 33.00 cm/sec Rt Ext Iliac Prx PSV 113.00 cm/sec Rt Ext Iliac Mid PSV 248.00 cm/sec Rt Ext Iliac Dst PSV 275.00 cm/sec Lt Ext Iliac Prx PSV 82.00 cm/sec Lt Ext Iliac Dst PSV 163.00 cm/sec BYPASS: Velocities Value Aorta Prx AP Dim 2.50 cm Aorta Prx Trans Dim 2.64 cm Aorta Mid AP Dim 2.10 cm Aorta Mid Trans Dim 1.84 cm Aorta Dst AP Dim 1.80 cm Rt Com Iliac Prx AP Dim 1.23 cm Rt Com Iliac Prx Trans Dim 1.14 cm Lt Com Iliac Prx AP Dim 1.20 cm MEASUREMENTS: Stent Measurements Measurement Value Units Location RCIA Stent Prx PSV 106.00 cm/sec Stent Dst PSV 94.00 cm/sec Location 2 LCIA Stent 2 Mid PSV 121.00 cm/sec Stent 2 Dst PSV 122.00 cm/sec FINDINGS: Study Quality: Limited due to overlying bowel/gas. Abdominal Aorta: Normal diameter proximal to mid, limited visualization of distal segment. Atherosclerotic plaque noted. Patent right common iliac artery stent. Elevated velocities at right external iliac artery. Unable to visualize proximal left common iliac artery stent, patent mid to distal. Left external iliac artery is patent. CONCLUSIONS: 1. Right common iliac artery stent is patent. 2. Right external iliac artery with moderate 50-75% stenosis. 3. Unable to visualize left proximal common iliac artery stent, rest of the stent is patent. ATTESTATION: I have reviewed and interpreted the pertinent images and measurements of this study. I attest to the conclusions in the final report that is provided above. Electronically Signed By: Ivet Montana MD 09/06/2024 1:47:06 PM CDT Procedure Note Ivet Montana MD - 09/06/2024 [facility] [address] [place] [address] Abdominal Aortic Duplex Ultrasound Report Patient Name: VICKY YOUSSEF Griselda : 1955 Study Date: 09/05/2024 8:52:47 AM Gender: M Hoop Cutter: Location: [facility] Provider: IVET MONTANA Quality: Adequate Order Provider: IVET MONTANA PROCEDURES: Arterial Report: Duplex ultrasound imaging of the abdominal aorta. INDICATIONS: Hx remote BCIA stents; R>L claudication - COMPARISONS: Prior CTA 09/27/23. STENTS: Velocities Value Aorta Prx PSV 51.00 cm/sec Aorta Mid PSV 33.00 cm/sec Rt Ext Iliac Prx PSV 113.00 cm/sec Rt Ext Iliac Mid PSV 248.00 cm/sec Rt Ext Iliac Dst PSV 275.00 cm/sec Lt Ext Iliac Prx PSV 82.00 cm/sec Lt Ext Iliac Dst PSV 163.00 cm/sec BYPASS: Velocities Value Aorta Prx AP Dim 2.50 cm Aorta Prx Trans Dim 2.64 cm Aorta Mid AP Dim 2.10 cm Aorta Mid Trans Dim 1.84 cm Aorta Dst AP Dim 1.80 cm Rt Com Iliac Prx AP Dim 1.23 cm Rt Com Iliac Prx Trans Dim 1.14 cm Lt Com Iliac Prx AP Dim 1.20 cm MEASUREMENTS: Stent Measurements Measurement Value Units Location RCIA Stent Prx PSV 106.00 cm/sec Stent Dst PSV 94.00 cm/sec Location 2 LCIA Stent 2 Mid PSV 121.00 cm/sec Stent 2 Dst PSV 122.00 cm/sec FINDINGS: Study Quality: Limited due to overlying bowel/gas. Abdominal Aorta: Normal diameter proximal to mid, limited visualization of distal segment.Atherosclerotic plaque noted. Patent right common iliac artery stent. Elevated velocitiesat right external iliac artery. Unable to visualize proximal left common iliacartery stent, patent mid to distal. Left external iliac artery is patent. CONCLUSIONS: 1. Right common iliac artery stent is patent. 2. Right external iliac artery with moderate 50-75% stenosis. 3. Unable to visualize left proximal common iliac artery stent, rest ofthe stent is patent. ATTESTATION: I have reviewed and interpreted the pertinent images and measurements ofthis study. I attest to the conclusions in the final report that is provided above. Electronically Signed By: Ivet Montana MD 09/06/2024 1:47:06 PM CDT Ivet Montana MD IMG US PROCEDURES Final Result * (ABNORMAL) POCT hemoglobin A1c (09/04/2024 10:38 AM CDT) Hemoglobin A1C, POC 6.4 4.0 - 5.6 % Blood 09/04/2024 10:3 8 AM CDT Perry Romero MD POINT OF CARE TEST ORDERABLES Final Result * Imaging Shoulder, Hip, Knee Joint/Bursa INJ INJ Bilateral () (08/10/2024 11:30 AM ACADEMIC ADVISOR) Narrative [facility] - 08/10/2024 11:30 AM ACADEMIC ADVISOR The images from this study are not interpreted by Radiology. Please refer to the physician's procedure / OR operative note. Charlene Krishnan MD IMG PAIN MGMT PROCEDURES F inal Result [facility] * CTA Abdominal Aorta And Bilateral Iliofemoral Runoff (09/27/2023 11:27 AM CDT) Anatomical Region Laterality Modality Body Bilateral Computed Tomogra phy 09/27/2023 12:3 1 PM CDT Impressions 09/27/2023 4:16 PM CDT 1. Right lower extremity: Predominantly moderate multifocal [...] M.D. Narrative 09/27/2023 4:16 PM CDT EXAMINATION: CT ANGIOGRAPHY OF THE ABDOMEN, PELVIS, [...] it. Electronically signed by: Taiwo Jones M.D. Rigo Carroll MD IMG CT PROCEDURES Lilia l Result * POCT lipid panel (09/21/2023 9:27 AM CDT) Cholesterol, POC <100 mg/dL Triglycerides, POC 214 mg/dL Capillary blood 09/21/2023 9 :27 AM CDT Perry Romero MD POINT OF CARE TEST ORDERABLES Final Result * PSA screen (06/17/2023 10:13 AM ACADEMIC ADVISOR) [facility] PSA 0.4 0.0 - 4.0 ng/mL [facility] - 01 Comment: Shahbaz ECLIA methodology. According to the [place] [employer], Serum PSA should decrease and [...] malignant disease. Blood 06/17/2023 10:1 3 AM ACADEMIC ADVISOR 06/17/2023 Narrative [facility] - 06/18/2023 6:11 AM ACADEMIC ADVISOR Performed at: [address] [place] [id number] Eap Specialist: Edgar Menard PhD, Phone: [phone] Mamie Rose RN CASE MANAGER HOSPICE LAB BLOOD ORDERABLES [facility] al Result [facility] - * COLONOSCOPY (01/01/2021 12:16 PM CDT) Anatomical Region Laterality Modality Other Narrative Procedure Note Emily Zeng MD - 01/01/2021 12:16 PM CDT [facility] Patient Name: Vicky Youssef Procedure Date: 01/01/2021 12:16 PM Date of : 1955 Admit Type: Outpatient Age: 65 Gender: Male Attending MD: Huy Reed [facility] 3 Note Status: Finalized [...] passed under direct vision.The CF HQ [id number] endoscope was introducedthrough the anus and advanced to the cecum, identified by appendiceal orifice and ileocecal valve. The colonoscopy was performed without difficulty. The patient tolerated the procedure well. The qualityof the bowel preparation was evaluated using the BBPS ([place] Bowel Preparation Scale) with scores of:Right Colon [...] colonoscopy today. After the pathology result ofthe polyp(s) is reviewed, the doctor who performedyour colonoscopy will recommend follow-up colonoscopy to you based on current guidelines by gastroenterology societies: - If only small hyperplastic polyps from the rectumor sigmoid were removed, repeat the colonoscopy in 10 years. - If 1 or 2 polyps less than 1 cm in size are adenomas, repeat the colonoscopy in 5 years. - If 3 or more polyps are adenomas, repeat the colonoscopy in 3 years. - If there are 10 or more adenomas, repeat the colonoscopy in 1 year. - If any polyp is 10 mm or greater in size, has villous histology or high grade dysplasia,repeat the colonoscopy in 3 years. - If a [...] On: 01/01/2021 12:16 PM Recognized by the [place] [employer] for promoting quality in endoscopy Emily Zeng MD ENDOSCOPY PROCEDUR ES Final Result from Last 3 Months or Most Recently Relevant to Health Maintenance Insurance MEDICARE [facility] MEDICARE SUPPLEMENT MEDICARE [facility] MEDICARE MEDICARE [facility] MEDICARE SUPPLEMENT MEDICARE [facility] MEDICARE SUPPLEMENT MEDICARE [facility] [place] [facility] MEDICARE SUPPLEMENT Advance Directives For more information, please contact: [phone] * Full Code (Latest Code Status on File) Date Activated Date Inactivated Comments 10/16/2024 3:57 PM 10/16/2024 9:27 PM * Full Code Date Activated Date Inactivated Comments 04/24/2024 12:39 PM 04/25/2024 5:09 PM * Full Code Date Activated Date Inactivated Comments 11/25/2022 3:28 PM 11/25/2022 10:23 PM * Full Code Date Activated Date Inactivated Comments 07/18/2021 7:28 PM 07/21/2021 8:26 PM * Full Code Date Activated Date Inactivated Comments 05/01/2021 4:34 PM 05/02/2021 4:45 PM Care Teams Boom Stick Worker Relationship Specialty Start Date End Date Perry Romero MD PCP - General Internal Medicine 02/23/20 Rigo Carroll MD Viscosity Tester Cardiology 05/23/19 Love Jones, PT Physical Therapist Physical Therapy 09/28/22 Arthur Bateman MD [address] [address] Referring Physician Anesthesiology 09/28/22 Karl Cha MD [address] [facility] [address] [place] [id number] Referring Physician Orthopedic Surgery 11/24/23
--- OUTSIDE RECORDS SUMMARY | 2024-10-31 12:37 | XMS_ITS | Encounter Summary ---
Author Organization [facility] Address [address] [place] [address] Phone Care Team Providers Care Commodity Director Name Role Phone Leonidas Carroll MD Unavailable [phone] Perry Romero MD Primary Care Provider Love Jones PT Unavailable Unavailab Arthur Law MD Unavailable Karl Cha MD Unavailable [phone] Encounter Details Date Type Department Care Team (Late st Contact Info) Description 06/22/2024 Telephone [facility] Cardiology [address] [facility] [address] [place] [address] [place] [address] Leonidas Carroll MD [address] [facility] [address] [place] [address] Social History Tobacco Use Types [...] week 05/02/2021 How often do you attend [facility] or orthodox services? 1 to 4 times per year 05/02/2021 Do you belong to any clubs o r organizations such as hinduism groups, unions, fraternal or athletic groups, or [...] on file Legal Sex Male 11:34 PM ER NURSE Gender Identity Not on file Sexual Orientation Not on file documented as of this encounter Plan of Treatment Not on file documented as of this encounter Goals Goal Patient Goal Type Associated Problems Recent Progress Patient-Stated? Author CCM Chronic Pain Care Plan Chronic Care Management No change(08/10 10:32 AM ER NURSE) Brissa Pate, RN Note: Problem: Chronic Pain Goals: 1. Minimize further functional decline 2. Maximize quality of life 3. Control pain Strategies: - Activity/exercise program recommendation - Conservative stepwise pain medicine strategy with multi-disciplinary approach - Recommend healthy lifestyle strategies and compensatory methods as needed documented as of this encounter Visit Diagnoses Not on filedocumented in this encounter Care Teams Commodity Director Relationship Specialty Start Date End Date Perry Romero MD PCP - General Internal Medicine 02/23/20 Leonidas Carroll MD Emergency Management Program Specialist Cardiology 05/23/19 Love Jones, PT Physical Therapist Physical Therapy 09/28/22 Arthur Bateman MD [address] [address] Referring Physician Anesthesiology 09/28/22 Karl Cha MD [address] [place] [address] Referring Physician Orthopedic Surgery 11/24/23 documented as of this encounter
--- OUTSIDE RECORDS SUMMARY | 2024-10-31 12:37 | XMS_ITS | Encounter Summary ---
Author Organization [facility] Address [address] [place] [address] Phone Care Team Providers Care Executive Sales Assistant Name Role Phone Lina Mcadams MD Primary Care Provide r Deacon Eisenberg DO Primary Care Provider + [phone] Leonidas Carroll MD Unavailable [phone] Perry Romero MD Primary Care Provider Love Jones PT Unavailable Unavailab Arthur Law MD Unavailable Karl Cha MD Unavailable [phone] Encounter Details Date Type Department Care Team (Late st Contact Info) Description 01/25/2018 Telephone [facility] Cardiology [address] [facility] Advanced Medicine 8th [place] [address] [place] [address] Leonidas Carroll MD [address] [facility] [address] [place], [place] [id number] Social History Tobacco Use Types Packs/Day Years Used Date Smoking Tobacco: Former Smokeless Tobacco: Never Alcohol Use Standard Drinks/Week Comments No 0 (1 standard drink = 0.6 oz pur e alcohol) Sex and Gender Information Value Date Recorded Sex Assigned at Not on file Legal Sex Male 11:34 PM CURTAIN DRIER Gender Identity Not on file Sexual Orientation Not on file documented as of this encounter Plan of Treatment Not on file documented as of this encounter Visit Diagnoses Not on filedocumented in this encounter Care Teams Executive Sales Assistant Relationship Specialty Start Date End Date Lina Mcadams MD [address] [place] [address] PCP - General 01/14/18 11/21/18 Deacon Eisenberg DO [address] [place] [address] PCP - General 11/22/18 02/22/20 Perry Romero MD [address] [place] [address] PCP - General Internal Medicine 02/23/20 Leonidas Carroll MD [address] [place] [address] Photographic Artist Cardiology 05/23/19 Love Jones, PT Physical Therapist Physical Therapy 09/28/22 Arthur Bateman MD [address] [address] Referring Physician Anesthesiology 09/28/22 Karl Cha MD [address] [place] [address] Referring Physician Orthopedic Surgery 11/24/23 documented as of this encounter
--- OUTSIDE RECORDS SUMMARY | 2024-10-31 12:37 | XMS_ITS ---
Author Organization 1 OF Chichi rojas DPM [facility] Address [address] [address] Care Team Providers Care Shared Services Manager Name Role Phone Perry Romero MD Primary Care Provider [facility]ail[facility] [phone] REASON FOR VISIT Sched orthotic Encounters Encounter Location Date Provider Diagnosis 1 OF Chichi Carmona DPM [facility] [address] [address] 10/15/2023 Rio Griffith Plan Of Treatment No Information Progress Notes * Deacon YOUSSEFDOB: (68 yo M)Acc No.[id number]:10/15/2023 Patient: Deacon TORREZ :1955 A ge:68 Y S ex:Male Address:[facility] [place], [address] * true * Date: Generated for Printi ng/Faxing/eTransmitting on: 0 10/31/2024 12:36 PM CDT
--- OUTSIDE RECORDS SUMMARY | 2024-10-31 12:37 | XMS_ITS | Encounter Summary ---
Author Organization [facility] Healthcare Address [address] [place] [address] Care Team Providers Care Fireworks Inspector Name Role Phone Leonidas Carroll MD Unavailable [phone] Perry Romero MD Primary Care Provider [phone] Love Jones PT Unavailable Unavailab Arthur Law MD Unavailable Karl Cha MD Unavailable [phone] Encounter Details Date Type Department Care Team (Late st Contact Info) Description 10/28/2021 Telephone [facility] Radiology [address] [place], [place] [id number] Alberto Pack MD PhD [address] [place] [address] Social History Tobacco Use Types Packs/Day Years [...] week 05/02/2021 How often do you attend [facility] or taoism services? 1 to 4 times per year 05/02/2021 Do you belong to any clubs o r organizations such as gnosticism groups, unions, fraternal or athletic groups, or [...] on file Legal Sex Male 11:34 PM CHEESEMAKER Gender Identity Not on file Sexual Orientation Not on file documented as of this encounter Plan of Treatment Not on file documented as of this encounter Goals Goal Patient Goal Type Associated Problems Recent Progress Patient-Stated? Author CCM Chronic Pain Care Plan Chronic Care Management No change(08/10 10:32 AM CHEESEMAKER) No Brissa Muse, RN Note: Problem: Chronic Pain Goals: 1. Minimize further functional decline 2. Maximize quality of life 3. Control pain Strategies: - Activity/exercise program recommendation - Conservative stepwise pain medicine strategy with multi-disciplinary approach - Recommend healthy lifestyle strategies and compensatory methods as needed documented as of this encounter Visit Diagnoses Not on filedocumented in this encounter Care Teams Fireworks Inspector Relationship Specialty Start Date End Date Perry Romero MD PCP - General Internal Medicine 02/23/20 Leonidas Carroll MD Elastic Attacher Chainstitch Cardiology 05/23/19 Love Jones, PT Physical Therapist Physical Therapy 09/28/22 Arthur Bateman MD [address] [address] Referring Physician Anesthesiology 09/28/22 Karl Cha MD [address] [place] [address] Referring Physician Orthopedic Surgery 11/24/23 documented as of this encounter
--- OUTSIDE RECORDS SUMMARY | 2024-10-31 12:37 | XMS_ITS | Encounter Summary ---
Author Organization [facility] Address [address] [place] [address] Phone Care Team Providers Care Radiological Defense Officer Name Role Phone Deacon Eisenberg DO Primary Care Provider [phone] Provider, None Primary Care Provider Unavailabl e Encounter Details Date Type Department Care Team (Late st Contact Info) Description 02/15/2020 Transcribe Orders [facility] Preop/Pacu II 1 [place] [phone] Anish Martinez MD [address] [place] [address] Pre-op testing (Primary Dx) Social History Tobacco [...] ABO TYPING AB 02/20/2020 2:05 PM CDT [facility] RH Positive 02/20/2020 2:05 PM CDT [facility] ABSC Negative 02/20/2020 2:05 PM CDT [facility] Blood Venipuncture / Unknown 02/20/2020 10:52 AM CDT 02/20/2020 11:43 AM CDT us Anish Martinez MD BLOOD BANK ORDERABLES Edited Result - Final [facility]OD [facility] #[address] [place] [address] documented in this encounter Visit Diagnoses Diagnosis Pre-op testing- Primary Preoperative examination, unspecified documented in this encounter Care Teams Radiological Defense Officer Relationship Specialty Start Date End Date Deacon Eisenberg DO [address] [address] PCP - General Family Medicine 11/15/19 02/19/20 Provider, None [place] PCP - General 02/20/20 documented as of this encounter
--- OUTSIDE RECORDS SUMMARY | 2024-10-31 12:37 | XMS_ITS | Encounter Summary ---
Author Organization [facility] Address [address] [place] [address] Phone Care Team Providers Care Fish Icer Name Role Phone Tim Sanchez MD Primary Care Provider [phone] Lina Mcadams MD Primary Care Provide r Deacon Eisenberg DO Primary Care Provider [phone] Leonidas Carroll MD Unavailable [phone] Perry Romero MD Primary Care Provider [phone] Love Jones PT Unavailable Unavailab Arthur Law MD Unavailable Karl Cha MD Unavailable [phone] Encounter Details Date Type Department Care Team (Late st Contact Info) Description 08/01/2017 Orders Only [facility] CLINCONV ProviderHeena MD [address] [place] [address] Social History Tobacco Use Types Packs/Day Years Used Date Smoking Tobacco: Never Assessed Sex and Gender Information Value Date Recorded Sex Assigned at Not on file 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 Gender Identity Not on file Sexual Orientation [...] on filedocumented in this encounter Care Teams Fish Icer Relationship Specialty Start Date End Date Tim Sanchez MD [address] [facility] [address] [place] [address] PCP - General 09/29/16 01/13/18 Lina Mcadams MD [address] [facility] [address] [place] [address] PCP - General 01/14/18 11/21/18 Deacon Eisenberg DO [address] [facility] [address] [place] [address] PCP - General 11/22/18 02/22/20 Perry Romero MD [address] [address] PCP - General Internal Medicine 02/23/20 Leonidas Carroll MD [address] [facility] [address] [place] [address] Certified Hearing Instrument Dispenser Cardiology 05/23/19 Love Jones, PT Physical Therapist Physical Therapy 09/28/22 Arthur Bateman MD [address] [facility] [address] [place] [address] Referring Physician Anesthesiology 09/28/22 Karl Cha MD [address] [facility] [address] [place] [address] Referring Physician Orthopedic Surgery 11/24/23 documented as of this encounter
--- OUTSIDE RECORDS SUMMARY | 2024-10-31 12:37 | XMS_ITS | Encounter Summary ---
Author Organization [facility] Address [address] [place] [address] Phone Care Team Providers Care Lead Net Software Developer Name Role Phone Lina Mcadams MD Primary Care Provide r Deacon Eisenberg DO Primary Care Provider [phone] Leonidas Carroll MD Unavailable [phone] Perry Romero MD Primary Care Provider Love Jones PT Unavailable Unavailab Arthur Law MD Unavailable Karl Cha MD Unavailable [phone] Encounter Details Date Type Department Care Team (Late st Contact Info) Description 07/08/2018 Telephone [facility] Cardiology [address] [facility] Advanced Medicine 8th [place] [address] [place] [phone] Leonidas Carorll MD [address] [facility] [address] [place], [place] [phone] Social History Tobacco Use Types Packs/Day Years Used Date Smoking Tobacco: Former Cigarettes Q uit: 2002 Smokeless Tobacco: Never Alcohol Use Standard Drinks/Week Comments No 0 (1 standard drink = 0.6 oz pur e alcohol) Sex and Gender Information Value Date Recorded Sex Assigned at Not on file 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 Gender Identity Not on file Sexual Orientation Not on file documented as of this encounter Plan of Treatment Not on file documented as of this encounter Visit Diagnoses Not on filedocumented in this encounter Care Teams Lead Net Software Developer Relationship Specialty Start Date End Date Lina Mcadams MD [address] [place] [address] PCP - General 01/14/18 11/21/18 Deacon Eisenberg DO [address] [place] [address] PCP - General 11/22/18 02/22/20 Perry Romero MD [address] [address] PCP - General Internal Medicine 02/23/20 Leonidas Carroll MD [address] [place] [address] Ruby Software Developer Cardiology 05/23/19 Love Jones, PT Physical Therapist Physical Therapy 09/28/22 Arthur Bateman MD [address] [address] Referring Physician Anesthesiology 09/28/22 Karl Cha MD [facility] [place] [address] Referring Physician Orthopedic Surgery 11/24/23 documented as of this encounter
--- OUTSIDE RECORDS SUMMARY | 2024-10-31 12:37 | XMS_ITS | Encounter Summary ---
Author Organization [facility] Healthcare Address [address] [place] [address] Care Team Providers Care Assembly Line Machine Operator Name Role Phone Deacon Eisenberg DO Primary Care Provider [phone] Leonidas Carroll MD Unavailable [phone] Perry Romero MD Primary Care Provider Love Jones PT Unavailable Unavailab Arthur Law MD Unavailable Karl Cha MD Unavailable [phone] Encounter Details Date Type Department Care Team (Late st Contact Info) Description 06/03/2019 Documentation [facility] Case Management 1 [place] [address] Shahram Baxter, RN Social History Tobacco Use Types Packs/Day Years Used Date Smoking Tobacco: Former Cigarettes 1 28 1 975 - 2002 Smokeless Tobacco: Never Alcohol Use Standard Drinks/Week Comments Not Currently 0 (1 standard drink = 0.6 oz pur e alcohol) Sex and Gender Information Value Date Recorded Sex Assigned at Not on file 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 However, notified by aCta, patient arranged discharge transportaion and Left for discharge prior to Used Car Make Ready Mechanic pravin greene Please call the Weekend Used Car Make Ready Mechanic @ [phone] if additional assistance needed. ROOM SALES ASSISTANT documented in this encounter Plan of Treatment Not on file documented as of this encounter Visit Diagnoses Not on filedocumented in this encounter Care Teams Assembly Line Machine Operator Relationship Specialty Start Date End Date Deacon Eisenberg DO PCP - General 11/22/18 02/22/20 Perry Romero MD PCP - General Internal Medicine 02/23/20 Leonidas Carroll MD Panel Gluer Cardiology 05/23/19 Love Jones, PT Physical Therapist Physical Therapy 09/28/22 Arthur Bateman MD [address] [address] Referring Physician Anesthesiology 09/28/22 Karl Cha MD [facility] [place] [address] Referring Physician Orthopedic Surgery 11/24/23 documented as of this encounter
--- OUTSIDE RECORDS SUMMARY | 2024-10-31 12:37 | XMS_ITS | Patient Health Record ---
Author Organization 1 OF Chichi rojas [facility] Address [address] [address] [place] [address] Care Team Providers Care Video Camera Operator Name Role Phone Perry Romero MD Primary Care Provider Rio Monteiro Unavailable [phone] Reason For Referral No Information Medications Medication [...] 10 MG Oral for 90 Days Active Plan Of Treatment No Information Insurance Providers Payer Name Payer Address Payer Phone Subscriber Number Group Number Insured Name Patient Relationship to Insured Coverage Start Date Coverage End Date Medicare [address] [place]ED[place]ITO Carballo [id number] Deacon Youssef Self - patient is the insured Blue Cross and Blue [facility] [address] [address] [place], [place] [id number] Domonique Deacon Self - patient is the insured Medical (General) History Medical History History ICD Code anxiety disorder, heart aayush ck, heart failure, pacemaker, high blood pressure
--- OUTSIDE RECORDS SUMMARY | 2024-10-31 12:37 | XMS_ITS | Encounter Summary ---
Author Organization [facility] Healthcare Address [address] [place] [address] Care Team Providers Care Claims Adjuster Name Role Phone Leonidas Carroll MD Unavailable [phone] Perry Romero MD Primary Care Provider [phone] Love Jones PT Unavailable Unavailab Arthur Law MD Unavailable Karl Cha MD Unavailable [phone] Reason for Visit * Reason Onset Date Comments pre proc blood thinner 07/24/2021 Encounter Details Date Type Department Care Team (Late st Contact Info) Description 07/24/2021 Telephone [facility] [address] [facility] Advanced Medicine [address] [place], [place] [phone] Arthur Bateman MD [address] [facility] [address] [place], [place] [id number] pre proc blood thinner Social History Tobacco [...] often do you attend chur ch or christianity services? 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 Author CCM Chronic Pain Care Plan Chronic Care Management No change(08/10 10:32 AM CABLE BRAIDER) No Brissa Muse RN Note: Problem: Chronic Pain Goals: 1. Minimize further functional decline 2. Maximize quality of life 3. Control pain Strategies: - Activity/exercise program recommendation - Conservative stepwise pain medicine strategy with multi-disciplinary approach - Recommend healthy lifestyle strategies and compensatory methods as needed documented as of this encounter Visit Diagnoses Not on filedocumented in this encounter Care Teams Claims Adjuster Relationship Specialty Start Date End Date Perry Romero MD PCP - General Internal Medicine 02/23/20 Leonidas Carroll MD Grit Blaster Cardiology 05/23/19 Love Jones, PT Physical Therapist Physical Therapy 09/28/22 Arthur Bateman MD [address] [address] Referring Physician Anesthesiology 09/28/22 Karl Cha MD [address] [place] [address] Referring Physician Orthopedic Surgery 11/24/23 documented as of this encounter
--- OUTSIDE RECORDS SUMMARY | 2024-10-31 12:37 | XMS_ITS | CONTINUITY OF CARE DOCUMENT ---
Author Name david rashmideandra Address Unknown Organization [facility] Address [address] [facility] [address] [place] [address] Phone [phone] Care Team Providers Care Logging Equipment Mechanic Name Role Phone Pedro QUINONES, Janay Unavailable KERRY HAIR MD Unavailable [phone] DIOGENES QUINONES, SONAM Unavailable Unavailable INSURANCE PROVIDERS Payer name Policy type / Coverage type Dauphin red libertarian ID [facility] Blue [facility] [id number] [place] [employer] Medicare [id number]
--- OUTSIDE RECORDS SUMMARY | 2024-10-31 12:37 | XMS_ITS ---
Author Organization 1 OF [facility] Address [address] [facility] [address] [address] Care Team Providers Care Doll Wig Maker Name Role Phone Perry Romero MD Primary Care Provider Rio Monteiro [facility] [phone] REASON FOR VISIT RIGHT FOOT PAIN Medications [...] 1 OF Chichi Carm[facility] [address] [address] 09/28/2023 Rio Gladis Metatarsalgia, right foot M77.41 [...] Notes * Deacon YOUSSEFDOB: (68 yo M)Acc No.[id number]:09/28/2023 Patient: Deacon TORREZ Provider: Triston Griffith DPM :1955 A ge:68 Y S ex:Male Date:09/28/2023 Address:[address] [place], [place] [address] Pcp:Perry Romero MD Subjective: * Chief Complaints: * R IGHT FOOT PAIN * HPI: Denilson Piña assisting with visit:: HPI/Rooming: Denilson barr. Randolph jones reason for visit:: 68 y ear old diabetic male, referred by [employer] PTO with chief complaint of RT foot pain of about a year d uration aggravated by prolonged standing/walking and improved by getting off feet. Pt describes her pain as aching and rates it as a 5/10 in severity at this time. P t denies any prior treatment or recent injury related to his condition at this time. Pt. states that he is having pain in the ball of his foot. * ROS: G ENERAL: NAUSEA, FEVER OR CHILLS d enies, d enies. U NEXPLAINED LOSS OR GAIN OF WEIGHT d enies. U NEXPLAINED FATIGUE OR LACK OF ENERGY d enies. R ECENT FALL d enies. C ARDIAC: CHEST PAIN d enies. D IFFICULTY BREATHING WHEN LAYING DOWN d enies. S OB w/ ACTIVITY d enies. P ERIPHERAL VASCULAR: FATIGUE IN CALF MUSCLE WHILE WALKING admits. P AIN, SWELLING OR FEELING OF TIGHTNESS IN LEG admits. F REQUENT OR CHRONIC SWELLING OF LEGS d enies. T OES TURN BLUE, WHITE, PAINFUL WITH COLD TEMPERATURE d enies. N EUROLOGICAL: DIZZINESS, LIGHT HEADED OR FAINTING d enies. W EAKNESS OR PARALYSIS d enies. D IFFICULTY WITH BALANCE d enies. P ERIPHERAL NEUROLOGICAL: BURNING, TINGLING, STINGING SENSATION OF FEET d enies. N UMBNESS OF FOOT / FEET d enies. W EAKNESS OF FOOT / FEET admits. G ASTROINTESTINAL: ABDOMINAL PAIN d enies. B LOODY STOOL d enies. F REQUENT HEARTBURN d enies. F REQUENT NAUSEA OR VOMITING d enies. M USCULOSKELETAL: LOW BACK PAIN admits. H IP PAIN admits. K NEE PAIN admits. S WELLING / STIFFNESS JOINTS OF HANDS / FEET d enies. E NDOCRINE: DELAYED HEALING OF WOUNDS d enies. I NTOLERANCE TO HEAT OR COLD d enies. E XCESSIVE THIRST d enies. F REQUENT URINATION d enies. ? H EMATOLOGY/ONCOLOGY: ANEMIA d enies. B LEED or BRUISE EASILY d enies.?ANTI-COAGULANT USE d enies. * Medical History: * Surgical History: N o Surgical History documented. * Hospitalization/Major Diagno stic Procedure: N o Hospitalization History. * Family History: N o Family History documented.. * Social History: D rugs/Alcohol: D o you smoke marijuana?: Denies. Alcohol use: Denies current alcohol use. Recreational drugs: Patient denies recreational drug use. * Medications: T akingbusPIRone HCl 30 MG Tablet Oral oxyBUTYnin Chloride [...] 0.4 MG Tablet Sublingual Sublingual Objective: * Vitals: H t: 71 in. * Examination: G eneral Examination: Constitutional / Appearance: N o acute distress , Well nourished, Appropriate personal hygiene. Mental status: C ooperative, Oriented to person, place and time, Mood and affect: normal, Judgement and intellect: normal with appropriate response to questions. Shoes today: X XXX. D ecreased range of motion for all joints from [...] MTPJ appears to be within normal limits. L ower Extremity VASCULAR: : Pulses: D P and PT pulses, palpable, bilateral. Temperature gradient: w arm from proximal to distal, bilateral. Pedal hair: p resent, bilateral. Capillary refill at distal toes l ess than 3 seconds. ? L ower Extremity DERM: : Skin: w ell hydrated , no suspicious lesions, without interdigital maceration, bilateral. L ower Extremity NEURO: : Neurological status: n ormal sensation to sharp/ dull with normal and symmetric muscle tone bilateral. L ower Extremity MSK: : Gait Gait unremarkable with normal posture, propulsion and balance. Muscle strength: 5 /5 , all 4 quadrants tested, bilateral.? Left lower extremity inspection and palpation: N o palpable masses or nodules noted.. Right lower extremity inspection and palpation: N o palpable masses or nodules noted. . Assessment: * Assessment: 1. M etatarsalgia, right foot - M77.41 (Primary) 2 . G astrocnemius equinus, right - M62.461 3 . R ight foot pain - M79.671 Plan: * Treatment: * Procedure Codes: 7 3630 X-RAY FOOT (3 views), Modifiers: RT * Follow Up: a fter orthotics * Images: * Sign off status: Completed true * Provider: Triston Griffith DPM Date: 0 09/28/2023 Generated for Humberto hayes/Vanda/Arpita on: 0 10/31/2024 12:37 PM CDT History and Physical Notes * HPI (History [...] pain in the ball of his foot. MA assisting with visit: HPI/Rooming: Buffy Examination Category [...]
--- OUTSIDE RECORDS SUMMARY | 2024-10-31 12:37 | XMS_ITS | Continuity of Care Document ---
Author Organization [facility] Address [address] [place] [address] [address] [place] [address] Phone Care Team Providers Care Motor Vehicle Escort Driver Name Role Phone Mary Ellen Dunn Unavailable Unavailable Advance Directives Directive Yes / No Effective Date File Name No Information Encounters Encounter Description Practice Location Reason(s) For Visit Diagnoses Date Provider Providers Copied on Encounter [facility], [address] [place] [address] [address], [place], [place], [id number], [place] tel:[phone] [facility] No Information 4-[address] Mona Hyde. [address] [facility] , [address], [place], [address], [place]. tel:[phone] Family History Family Member Type Diagnosis Age At Onset No Information Payers Payer name Insurance type Covered republican ID Authoriza tion(s) No Information Social History [...]
--- OUTSIDE RECORDS SUMMARY | 2024-10-31 12:37 | XMS_ITS | Encounter Summary ---
Author Organization [facility] Address [address] [place] [address] Phone Care Team Providers Care Mash Filter Operator Name Role Phone Tim Sanchez MD Primary Care Provider [phone] Lina Mcadams MD Primary Care Provide r Deacon Eisenberg DO Primary Care Provider [phone] Leonidas Carroll MD Unavailable [phone] Perry Romero MD Primary Care Provider [phone] Love Jones PT Unavailable Unavailab Arthur Law MD Unavailable Karl Cha MD Unavailable [phone] Encounter Details Date Type Department Care Team (Late st Contact Info) Description 05/13/2015 Orders Only [facility] CLINCONV ProviderHeena MD [address] [place] [address] Social History Tobacco Use Types Packs/Day Years Used Date Smoking Tobacco: Never Assessed Sex and Gender Information Value Date Recorded Sex Assigned at Not on file 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 Gender Identity Not on file Sexual Orientation [...] on filedocumented in this encounter Care Teams Mash Filter Operator Relationship Specialty Start Date End Date Tim Sanchez MD [address] [facility] [address] [place] [address] PCP - General 09/29/16 01/13/18 Lina Mcadams MD [address] [facility] [address] [place] [address] PCP - General 01/14/18 11/21/18 Deacon Eisenberg DO [address] [facility] [address] [place] [address] PCP - General 11/22/18 02/22/20 Perry Romero MD [address] [address] PCP - General Internal Medicine 02/23/20 Leonidas Carroll MD [address] [facility] [address] [place] [address] Central Service Tech Cardiology 05/23/19 Love Jones, PT Physical Therapist Physical Therapy 09/28/22 Arthur Bateman MD [address] [facility] [address] [place] [address] Referring Physician Anesthesiology 09/28/22 Karl Cha MD [address] [facility] [address] [place] [address] Referring Physician Orthopedic Surgery 11/24/23 documented as of this encounter
--- OUTSIDE RECORDS SUMMARY | 2024-10-31 12:38 | XMS_ITS | Data Portability ---
Author Organization [place] [facility] [employer], Main Office Address [address] [place] [address] Care Team Providers Care Creative Services Designer Name Role Phone JESÚS ROMERO Primary Care Provider ALEXIS RAMOS Referring Provider [phone] Assessment Encounter Date Assessment Date Assessment LastModified [...] I will be no longer working at [employer] and I will be starting to work in the [facility] [facility] in September. He asked where I was going in I advised him that I will be going to [facility] for appointment and working there. I will be happy to see him back as needed. He understands the cam a cortisone shot as often as every 3 months if they are necessary and helpful. 30 minutes were spent total his mother half the time spent in [id number] care [email or web address] Not available 07/08/2023 14:43:05 Plan [...] DO Not Attach Compendium, Do Not Delete/merge, [id number] 4 11:50:27 Surgeries None recorded. Imaging None recorded. Medication Orders Kenalog 10 mg/mL suspension for injection 2023 024 [facility] [address] [id number], [address] , [place], [place], [id number], 4 01:49:27 ropivacaine (PF) 5 mg/mL (0.5 %) injection solution 2023 024 [facility] [address] [id number], [address] , [place], [place], [id number], 4 01:49:27 Patient TargetsNo targets recorded. Patient InstructionsNo instructions recorded. Reason for Referral None Reported. Results Created Date Observation Date Name Description Value Unit Range Abnormal Flag Note LastModifiedBy Organization Detail LastModifiedTime 11/24/19 24 11/19/2023 ([place]) ankle brach ial index * No observ ation record ed. [email or web address] [facility] [address] [place], [address], 11/25/2023 09:12:12 Result Notes None recorded. Problems Name Problem SNOMED Code Status Onset Date Resolution Date Notes Provider Name and Address Organization Details Recorded Time Myocardial infarction 38878056 Active 2017 Not Available [facility] 4 01:49:28 Diabetes mellitus 66972411 Active 2017 Not Available [facility] 4 01:49:28 Pain of right knee joint 0977020348384 00 Active 2023 Not Available [facility] 4 01:49:28 Pain of bilateral knee joints 7901948781602 04 Active 2023 Not Available [facility] 4 01:49:28 Problem Notes None recorded. Procedures Surgical History Date Name Laterality Status Provider Name and Address Organization Details Recorded Time Cardiac Bypass completed Daylin Lara CMA [place] [facility] 07/08/2023 11:41:16 Imaging Results Imaging Date Name Status LastModified by Organiz ation Details LastModified Time 11/19/2023 ([place]) ankle brachial index* completed [email or web address] [facility] [address] [place], [address], 11/25/2023 09:12:12 Procedure Notes None recorded. Medical [...] red by provider 2023 active [facility]: 0003- [phone]- 20 Not Available Not [...] red by provider 2023 active [facility] [phone] Not Available Not Available Not Available Vitals Date Recorded Body height Body mass index (BMI) Body weight Provider Name and Address Organization Details Last Updated DateTime 07/08/2023 175.26 cm 32.2 kg/m2 59287.14 g Daylin Lara UNDERGROUND MINE MACHINERY MECHANIC [place] [facility] 07/08/2023 11:27:41 Social History None recorded. Functional Status Question Answer Note LastModified by Organization D etails LastModified Time What is your level of alcohol consumption? None [email or web address] Information not available 07/08/2023 Mental Status None recorded. Family History Relationship [...] HAVE YOU BEEN HOSPITALIZED OR SEEN IN [facility] IN THE PAST YEAR ? Y COPD Y Past Encounters Encounter ID Performer Location Encounter Start Date Encounter Closed Date Diagnosis/Indication Diagnosis SNOMED-CT Code Diagnosis ICD10 Code Diagnosis Note [id number] Karl Cha MD [facility] [address] [address] 07/08/2023 10:43:38 07/08/2023 14:50:13 Pain of bilateral knee joints 0200085091 66536 M25.561 M25.562 Health Concerns Section Related Observation LastModified by Organization Detai ls LastModified Time None Recorded Concern Status LastModified by Organization Details LastModified Time None Recorded Advance Directives Directive None Recorded Payers Encounter Date Sequence Insurance Name Policy Number Policy Alfaro Covered Member ID Alfaro Member ID Guarantor Name 07/08/2023 1 [place] Deacon Youssef [id number] Deacon Youssef 07/08/2023 2 [place] [id number] Deacon Villalobos Domonique [id number] Deacon Youssef Notes Date Note Type Note Provider Name [...] stent which was placed in November. His clinical operations consultant is Dr. Salinas for min at [place]. He has been placed on Plavix to protect the stent and has been told that she cannot be off the Plavix for a total knee replacement until after November of 2023. He sees his clinical operations consultant again in September. Today would like cortisone [...] his abdominal aorta. Karl Cha MD [address], [place], [address], [place] [facility] 07/08/2023 14:43:25
--- OUTSIDE RECORDS SUMMARY | 2024-10-31 12:38 | XMS_ITS | Referral Summary ---
Author Organization [facility] Address [address] [place] [address] Care Team Providers Care Swing Driver Name Role Phone Rigo Carroll MD Unavailable [phone] Perry Romero MD Primary Care Provider [phone] Love Jones PT Unavailable Unavailab Arthur Law MD Unavailable Karl Cha MD Unavailable [phone] Encounters Date Type Department Care Team Description 10/25/2024 1:00 PM CDT Office Visit [facility] Orthopaedic Surgery [facility] 6th [place] [address] [place] [address] Sudhir Martinez MD Greater trochanteric pain syndrome of right lower extremity (Primary Dx); Chronic right hip pain; Chronic knee pain after total replacement of left knee joint 10/23/2024 Telephone [facility] Cardiology [facility] 8th [place] [address] [place] [address] Rigo Carroll MD BP updates 10/18/2024 Results Follow-Up [facility] Cardiology [facility] 8th [place] [address] [place] [address] Rigo Carroll MD Basic metabolic panel, eGFR 10/18/2024 10:10 AM CDT - 10/18/2024 11:59 PM CDT Hospital Encounter [address] [address] High risk medications (not anticoagulants) long-term use Discharge Disposition: Discharge to home or self care 10/18/2024 10:15 AM CDT Lab [facility] Outpatient Lab at [address] [address] Diabetes mellitus type 2 without retinopathy (HCC) (Primary Dx); High risk medications (not anticoagulants) long-term use 10/16/2024 Results Follow-Up [facility] Cardiology [address] [place] [address] 8th [place] [address] [place] [address] Rigo Carroll MD Cardiac Catheterization 10/16/2024 10:45 AM CDT - 10/16/2024 12:25 PM CDT Surgery [facility] Heart [facility] V[facility] Center [address] [place] [phone] Clifford Sandy MD CORONARY ARTERY AND GRAFT ANGIOGRAPHY 99463 10/16/2024 8:28 AM CDT - 10/16/2024 5:00 PM CDT Hospital Encounter [facility] Heart and Vascular Center [address] [place] [phone] Clifford Sandy MD Coronary artery disease involving shoalwater heart without angina pectoris, unspecified vessel or lesion type Discharge Disposition: Discharge to home or self care 10/11/2024 Orders Only [facility] Health Information Management [address] [place] [address] Scanning, Provider 10/11/2024 Orders Only [facility] Vascular at [address] [place] [phone] Ivet Montana MD 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 (Primary Dx); Other specified symptoms and signs involving the circulatory and respiratory systems 10/11/2024 8:45 AM CDT Office Visit [facility] Vascular at [address] [place] [phone] Ivet Montana MD Peripheral vascular disease (Primary Dx); Primary hypertension; Mixed hyperlipidemia 10/05/2024 Telephone [facility] Cardiology [address] [facility] 8th [place] [address] [place] [address] Rigo Carroll MD follow up of previous orders 10/05/2024 10:00 AM CDT Office Visit [facility] Ophthalmology [address] [facility] 1st [place] [address] Sherri Jean-Baptiste MD 10/04/2024 1:17 PM CDT - 10/04/2024 11:59 PM CDT Hospital Encounter [facility] [address] [phone] 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 Discharge Disposition: Discharge to home or self care 10/03/2024 Results Follow-Up [facility] Cardiology [address] [place] [address] [place] [address] Rigo Carroll MD Pro B-type natriuretic peptide 10/03/2024 Results Follow-Up [facility] Cardiology [address] [place] [address] [place] [address] Rigo Carroll MD CBC with auto differential, Basic metabolic panel 10/03/2024 Telephone [facility] Cardiology [address] [place] [address] [place] [address] Rigo Carroll MD Cath orders 10/03/2024 11:50 AM CDT - 10/03/2024 11:59 PM CDT Hospital Encounter [facility] [address] [place] [address] Coronary artery disease involving shoalwater coronary artery of shoalwater heart without angina pectoris Discharge Disposition: Discharge to home or self care 10/03/2024 11:45 AM CDT Lab [facility] Endocrinology Metabolism and Lipid [address] [place] [address] [place] [address] Coronary artery disease involving shoalwater coronary artery of shoalwater heart without angina pectoris 10/03/2024 9:15 AM CDT - 10/03/2024 11:59 PM CDT Hospital Encounter [facility] Cardiac Diagnostic Lab [address] [facility] 8th [place] [address] Cardiomyopathy, ischemic Discharge Disposition: Discharge to home or self care 10/03/2024 10:30 AM CDT Office Visit [facility] Cardiology [address] [facility] 8th [place] [address] [place] [address] Rigo Carroll MD Coronary artery disease involving shoalwater coronary artery of shoalwater heart without angina pectoris (Primary Dx); Primary hypertension; Pure hypercholesterolemia; Peripheral vascular disease; Presence of cardiac pacemaker 09/13/2024 Orders Only [facility] Vascular at [address] [place] [address] Ivet Montana MD 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 (Primary Dx) 09/13/2024 8:30 AM CDT Office Visit [facility] Vascular at [address] [phone] Ivet Montana MD Peripheral vascular disease (Primary Dx); Mixed hyperlipidemia; Primary hypertension 09/05/2024 10:00 AM CDT Ancillary Procedure [facility] Vascular and Vein Surgery at [address] [address] 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 09/05/2024 10:00 AM CDT Ancillary Procedure [facility] Vascular and Vein Surgery at [address] [place] [phone] 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 09/05/2024 9:00 AM CDT Ancillary Procedure [facility] Group Vascular and Vein Surgery at [address] [address] 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; Other specified symptoms and signs involving the circulatory and respiratory systems 09/04/2024 10:30 AM CDT Office Visit [facility] [address] [facility] [address] [place] [address] Perry Romero MD Diabetes mellitus type II, non insulin dependent (HCC) (Primary Dx); Sick sinus syndrome (CMS/HCC) (HCC); Primary hypertension; Coronary artery disease involving shoalwater heart without angina pectoris, unspecified vessel or lesion type 08/30/2024 Orders Only [facility] Vascular at [address] [place] [address] Ivet Montana MD 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 (Primary Dx); Other specified symptoms and signs involving the circulatory and respiratory systems 08/30/2024 9:15 AM CDT Office Visit [facility] Group Vascular at [address] [place] [address] Rosana Fink NP Peripheral vascular disease (Primary Dx); Mixed hyperlipidemia; Primary hypertension 08/10/2024 10:15 AM PHYSICAL SCIENCES PROFESSOR - 08/10/2024 11:59 PM PHYSICAL SCIENCES PROFESSOR Hospital Encounter [facility] Pain Center at the [facility] [address] [place] [address] [place] [phone] Arthur Bateman MD Greater trochanteric bursitis of both hips (Primary Dx); Tensor fascia shorty syndrome; Spondylosis of lumbar region without myelopathy or radiculopathy Discharge Disposition: Discharge to home or self care 08/03/2024 Telephone [facility] Orthopaedic Surgery [address] [facility] Medical Office Building [address] [place] [address] Zbigniew Noel MD 08/03/2024 Telephone [facility] [address] [place] [address] Perry Romero MD Referral to Vascular from Last 3 Months Allergies Active Allergy Reactions Criticality Noted Date Comments Dewkgto-Rgg-Lms Reductase Inhibitors Other (See comments) Low 05/03/2024 [...] daily 30 tablet 11 024 2024 Active meloxicam (MOBIC) 7.5 mg tabletIndications:P ain Take 1 tablet (7.5 mg total) by mouth daily 30 tablet 024 Active traMADoL (ULTRAM) 50 mg [...] 1 tablet (5 mg total) 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 90 tablet 3 025 Active clopidogreL (PLAVIX) 75 mg tablet TAKE 1 TABLET(75 MG) BY MOUTH DAILY 90 tablet 3 025 Active escitalopram (LEXAPRO) 20 mg tablet Take 1 tablet (20 mg total) by mouth 2 (two) times a day 025 Active hydrOXYzine (ATARAX) 10 mg tablet Take 1 tablet (10 mg total) by mouth daily 025 Active metoprolol XL (TOPROL-XL) 25 mg extended release tablet Take 1 tablet (25 mg total) by mouth daily 30 tablet 11 025 2025 Active sacubitriL-valsarta n (ENTRESTO) 24-26 mg tabletIndications:c hronic heart failure Take 1 tablet by mouth 2 (two) times a day 60 tablet 11 025 2024 Active empagliflozin (JARDIANCE) 10 mg tablet Take 1 tablet (10 mg total) by mouth daily 30 tablet 11 025 Active amLODIPine (NORVASC) 2.5 mg tablet TAKE 1 TABLET(2.5 MG) BY MOUTH DAILY 90 tablet 3 025 Active tamsulosin (FLOMAX) 0.4 mg extended release capsuleIndications: Nocturia Take 1 capsule (0.4 mg total) by mouth daily 30 capsule 11 021 2021 Discontinued metoprolol tartrate (LOPRESSOR) 25 mg [...] 06/17/2023 Assessment & Plan (06/17/2023 10:00 AM PHYSICAL SCIENCES PROFESSOR): Continue flexeril 10mg Q8 PRN Trial gabapentin 100mg Q8 TID Topical lidocaine patches 4%, on for 12 hours/off for 12 hours Will send [place] 5/325 PRN #28, discussed that this will [...] 07/21/2021 Assessment & Plan (07/21/2021 9:52 AM PHYSICAL SCIENCES PROFESSOR): Baseline creatine 1.3-1.5 Creatine Within patient;s baseline at 1.3 CTM Received IV fluids 500 ml on admission for creatine 1.59 Statin intolerance 07/18/2021 Assessment & Plan (07/18/2021 3:39 PM PHYSICAL SCIENCES PROFESSOR): History of statin intolerance -Continue ezetimibe and fenofibrate DM2 (diabetes mellitus, type 2) 07/18/2021 Assessment & Plan (07/19/2021 7:58 AM PHYSICAL SCIENCES PROFESSOR): Follow glucose and rx with insulin Metformin held for now pending cath. Assessment & Plan (07/18/2021 3:41 PM PHYSICAL SCIENCES PROFESSOR): -Hemoglobin A1c 6.1 -Hold home metformin while inpatient -SSI while admitted -Carb consistent diet -Accuchecks BPH (benign prostatic hyperplasia) 07/18/2021 Assessment & Plan (07/18/2021 3:59 PM PHYSICAL SCIENCES PROFESSOR): BPH s/p TURP -Continue home finasteride and tamsulosin HLD (hyperlipidemia) 07/18/2021 Assessment & Plan (10/11/2024 11:06 AM CDT): Recommend statin therapy. Assessment & Plan (09/15/2024 10:52 AM CDT): Stable continue Zetia Assessment & Plan (08/31/2024 1:57 PM CDT): Impression: Chronic stable. Plan: Continue Zetia, fenofibrate Assessment & Plan (07/21/2021 8:10 AM PHYSICAL SCIENCES PROFESSOR): LDL ok while on non-statins due to intolerance. Continue present Rx for now Assessment & Plan (07/20/2021 8:10 AM PHYSICAL SCIENCES PROFESSOR): LDL ok while on non-statins due to intolerance. Continue present Rx for now Assessment & Plan (07/19/2021 7:57 AM PHYSICAL SCIENCES PROFESSOR): LDL ok while on non-statins due to intolerance. Continue present Rx for now Assessment & Plan (07/18/2021 3:52 PM PHYSICAL SCIENCES PROFESSOR): Lipid panel WNL -Continue ezetimibe and fenofibrate [...] 07/18/19 Assessment & Plan (07/18/2021 4:00 PM PHYSICAL SCIENCES PROFESSOR): PVOD s/p bilateral iliac stents Unstable angina 07/18/2021 Overview (07/18/2021): Added automatically from request for surgery [id number] Assessment & Plan (07/21/2021 8:10 AM PHYSICAL SCIENCES PROFESSOR): CP concerning for USA. troponins normal, ruled out for AK. I have recommended coronary angiography and this is scheduled for today. Pt has PAD Continue IV heparin, follow labs and adjust. Continue aspirin, plavix, beta carrie, Patient asymptomatic. Cardiac catheterization scheduled for tomorrow. NPO after midnight. Assessment & Plan (07/20/2021 8:10 AM PHYSICAL SCIENCES PROFESSOR): CP concerning for USA. troponins normal, ruled out for AK. I have recommended coronary angiography and this is scheduled for Wednesday. Pt has PAD and radial approach may be preferred. Continue IV heparin, follow labs and adjust. Continue aspirin, plavix, beta carrie, Patient asymptomatic. Cardiac catheterization scheduled for tomorrow. NPO after midnight. Assessment & Plan (07/19/2021 7:56 AM PHYSICAL SCIENCES PROFESSOR): CP concerning for USA. troponins normal, ruled out for AK. Brief left sided chest pain since admission. [...] (03/06/2021): Added automatically from request for surgery [id number] Presbyopia 02/03/2021 Assessment & Plan (08/12/2023 5:06 PM PHYSICAL SCIENCES PROFESSOR): -Noting increased difficulty with near vision while reading -Recommended trialing higher power reading glasses Assessment & Plan (02/03/2021 2:44 PM CDT): Correctable to 20/25 right eye (OD) and left eye (OS). Update specs as desired. Rosacea 09/18/2020 Metatarsalgia of right foot 07/04/2020 Overview (07/04/2020): Added automatically from request for surgery [id number] Sesamoiditis 07/04/2020 Overview (07/04/2020): Added automatically from request for surgery [id number] Painful orthopaedic hardware 07/04/2020 Overview (07/04/2020): Added automatically from request for surgery [id number] Achilles tendon contracture, right 07/04/2020 Overview (07/04/2020): Added automatically from request for surgery [id number] Pseudarthrosis after fusion or arthrodesis 02/28 Overview (02/28/2019): Added automatically from request for surgery [id number] Diabetes mellitus type 2 without retinopathy 05/2019 Assessment & Plan (02/09/2023 3:33 PM CDT): Continue strict BS control, annual dilated eye exams. Assessment & Plan (06/17/2022 4:09 PM PHYSICAL SCIENCES PROFESSOR): Continue strict BS control, annual dilated eye [...] months Assessment & Plan (08/12/2023 5:05 PM PHYSICAL SCIENCES PROFESSOR): -Follow up exam for AMD; last visit [...] 6months Assessment & Plan (06/17/2022 9:41 AM PHYSICAL SCIENCES PROFESSOR): -No signs of exudation. -given the large [...] months Assessment & Plan (08/13/2021 3:12 PM PHYSICAL SCIENCES PROFESSOR): No signs of exudation. Per AREDS study, [...] follow. Assessment & Plan (06/17/2022 4:09 PM PHYSICAL SCIENCES PROFESSOR): NVS, follow. Assessment & Plan (02/23/2019 10:32 [...] (06/08/2018): Added automatically from request for surgery [id number] Palpitations 04/15/2018 CAD (coronary artery disease) 03/08/2018 Assessment & Plan (09/04/2024 11:21 AM CDT): stable Assessment & Plan (07/18/2021 3:42 PM PHYSICAL SCIENCES PROFESSOR): CAD s/p CABG in 2010 (KAUR-LAD which is known to be an atretic graft; vein graft-marginal; and vein graft-2nd marginal branch; RCA occluded, with collateral revascularization) -Last [facility] in 11/2018 showed patent KAUR graft to [...] Diabetes mellitus type II, non insulin dependent ([facility]) 01/15/2018 Assessment & Plan (09/04/2024 11:21 AM CDT): Stable and doing well Assessment & Plan (07/21/2021 9:50 AM PHYSICAL SCIENCES PROFESSOR): Hemoglobin a1c 6.1 - diet controlled for now Metformin on hold for [facility] Continue to monitor. Assessment & Plan (07/20/2021 8:11 AM PHYSICAL SCIENCES PROFESSOR): Blood sugar stable. Follow-up blood sugar. Treat with insulin as appropriate Metformin being held. Assessment & Plan (02/28/2020 3:23 PM CDT): a1c at target, recommend annual eye exam. Feet are without lesions. Assessment & Plan (11/22/2018 4:43 PM CDT): On metformin 1000mg BID at home -LDSSI Assessment & Plan (11/14/2018 1:46 PM CDT): No POLYTECHNIC REGISTRAR Last A1C was 01/2018 but at goal [...] metoprolol Assessment & Plan (07/18/2021 3:53 PM PHYSICAL SCIENCES PROFESSOR): BP currently well controlled -Continue amlodipine, lisinopril [...] 09/15/2016 Assessment & Plan (07/18/2021 4:06 PM PHYSICAL SCIENCES PROFESSOR): -Continue metoprolol XL -Telemetry Assessment & Plan [...] stable Assessment & Plan (07/21/2021 8:10 AM PHYSICAL SCIENCES PROFESSOR): Pacer function stable Continue present Rx. Continue beta-carrie. Assessment & Plan (07/20/2021 8:10 AM PHYSICAL SCIENCES PROFESSOR): Pacer function stable Continue present Rx. Continue beta-carrie. 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 Maty Weber Assessment & Plan (02/28/2020 3:23 PM CDT): No palpitations, syncope Depressive disorder 03/15/2015 Panic disorder without agoraphobia 03/15/2015 Resolved Problems Problem Noted Date Diagnosed Date Resolved Date Pain in right foot 04/24/2022 LINUS (acute kidney injury) 07/18/2021 Assessment & Plan (07/21/2021 8:12 AM PHYSICAL SCIENCES PROFESSOR): Pt with CKDstage 3, CrCl 50 ml/min. Creatinine improved. Cath today Assessment & Plan (07/20/2021 8:11 AM PHYSICAL SCIENCES PROFESSOR): Pt with CKDstage 3, CrCl 50 ml/min. Repeat BMP today. IV hydration Wednesday night before cath recommended. Assessment & Plan (07/19/2021 7:59 AM PHYSICAL SCIENCES PROFESSOR): Pt with CKDstage 3, CrCl 50 ml/min. Stable. IV hydration Wednesday night before cath recommended. Assessment & Plan (07/18/2021 3:44 PM PHYSICAL SCIENCES PROFESSOR): LINUS (Cr 1.59 on admission) on CKD (baseline Cr 1.0-1.2) -S/p 500 ml LR bolus in ED -Follow BMPs Statin intolerance 02/10/2021 4 Syncope and collapse 12/30/2020 024 Encounter for screening colonoscopy 10/14/2020 06/17/2023 Overview (10/14/2020): Added automatically from request for surgery [id number] Joint pain 02/28/2020 06/17/2023 Assessment & Plan (04/29/2020 10:45 AM PHYSICAL SCIENCES PROFESSOR): Medrol dose pack Tramadol Q6 PRN (use, safety, s/e reviewed) Referral to Pain Management Assessment & Plan (02/28/2020 3:25 PM CDT): xrays noted, check rheum panel (? H/o pos JENNIFER) Confusion 01/04/2019 06/17/2023 Chest pain 01/15/2018 06/17/2023 Assessment & Plan (07/21/2021 9:47 AM PHYSICAL SCIENCES PROFESSOR): CAD s/p CABG (2010), admitted with chest [...] for chest pain -Telemetry monitoring NPO for [facility] Assessment & Plan (01/16/2018 10:39 AM CDT): [...] likelihood event needs to go for catheterization Immunizations Immunization Administration Dates Next Due Influenza, [...] often do you attend chur ch or yazdanism services? 1 to 4 times per year 05/02/2021 Do you belong to any clubs o r organizations such as jehovah's witness groups, unions, fraternal or athletic groups, or [...] on file Legal Sex Male 11:34 PM PHYSICAL SCIENCES PROFESSOR Gender Identity Not on file Sexual Orientation [...] 10/16/2024 8:53 AM CDT Plan of Treatment Not on file Goals Goal Patient Goal Type Associated Problems Recent Progress Patient-Stated? Author CCM Chronic Pain Care Plan Chronic Care Management No change(08/10 10:32 AM PHYSICAL SCIENCES PROFESSOR) No Brissa Muse, RN Note: Problem: Chronic Pain Goals: 1. Minimize further functional decline 2. Maximize quality of life 3. Control pain Strategies: - Activity/exercise program recommendation - Conservative stepwise pain medicine strategy with multi-disciplinary approach - Recommend healthy lifestyle strategies and compensatory methods as needed Medical Devices Implanted Type Area Curb Machine Operator Device Identifier Shelf Expiration Date Model / Serial / Lot TerCare[employer]s Medical Lewis Angio-Seal Vip 6fr Closere Device [id number] - [id number] - [id number] Implanted:Qty: 1 on 11/25/2022 by Eliecer Mixon MD at [facility] Collagen Terumo Medical Lewis 06/13/2023 [id number] / [id number] / [id number] Terumo Medical Lewis Angio-Seal Vip 6fr Closere Device [id number] - [id number] - [id number] Implanted:Qty: 1 on 10/16/2024 by Clifford Sandy MD at [facility] Collagen Left: Common Femoral Artery TerKloudco Lewis 05/01/2025 [id number] / [id number] / [id number] Lead (Ra)-05/08/2015 Implanted:05/08/2015 by Maty Weber MD (Quantity not on file) Lead Heart Biotronik 350 974 SETROX S 53 / [id number] / Lead (Rv)-05/08/2015 Implanted:05/08/2015 by Maty Weber MD (Quantity not on file) Lead Heart Biotronik 350 975 SETROX S 60 / [id number] / Pacemaker-05/08/2015 Implanted:05/08/2015 by Mtay Weber MD (Quantity not on file) Pacemaker Left: Chest Biotronik [id number] ELUNA 8 JOVANNI AGUILA / [id number] / Synthes 201.814 2mm 3.5mm 14mm Self Tap Cruciform Cortex Screw Bone Stainless - S0 - [id number] Implanted:Qty: 1 on 08/06/2020 by Zoey Sexton MD at [facility] Screw Synthes I 201.814 / 0 / Medtronic Card Vasc Surgery 4.0 X 26mm Al [place] Rx Coronary Stent [id number] - [id number] - [id number] Implanted:Qty: 1 on 11/25/2022 by Clifford Sandy MD at [facility] Stent Medtronic Card Vasc Surgery 06/26/2025 [id number] / [id number] / [id number] Orthohelix Ecb-[id number] Maxtorque 4mm 32.5mm Cannulated Self Drill Foot Ankle Long Thread - [id number] Implanted:Qty: 1 on 06/28/2018 at [facility] Right: Foot Orthohelix MSD-010- 40-325L / / Orthohelix Electrotherapist-002-Pmx Ortholink 3 Hole Kelso Foot Ankle Standard Plate Bone Nonsterile Latex Free - [id number] Implanted:Qty: 1 on 06/28/2018 at [facility] Right: Foot Orthohelix ANGLE SHEARER-002- PMX / / Orthohelix [id number] Maxlock Extreme 4mm 16mm Nonlock Foot Ankle Screw Bone Nonsterile - [id number] Implanted:Qty: 1 on 06/28/2018 at [facility] Right: Foot Orthohelix ANGLE SHEARER-011- 4016 / / Orthohelix [id number] Maxlock Extreme 4mm 18mm Nonlock Foot Ankle Screw Bone Nonsterile Latex Free - [id number] Implanted:Qty: 1 on 06/28/2018 at [facility] Right: Foot Orthohelix ANGLE SHEARER-011- 40-18 / / Orthohelix [id number] Maxlock Extreme 4mm 14mm Nonlock Foot Ankle Screw Bone Nonsterile Latex Free - [id number] Implanted:Qty: 1 on 06/28/2018 at [facility] Right: Foot Orthohelix ANGLE SHEARER-011- 4014 / / Daig Lewis[employer] [id number] Angio-Seal Evolution 6fr .035in Guidewire Bypass Tube Suture - [id number] Implanted:Qty: 1 on 11/22/2018 by Sarah Vasquez MD at [facility] Daig Lewis[employer] 08/12/2019 [id number] / / [id number] Medtronic Sofamor Danek [id number] Infuse 14mm 23mm Absorbable Sponge Sterile Water Syringe Needle - [id number] Implanted:Qty: 1 on 06/02/2019 by Zoey Sexton MD at [facility] Right: Foot Medtronic Inc 01/11/2021 [id number] / / [id number] Mogad Inc [id number] Plate Bone Medline Unite 0 D Medium Metatarsophalangeal Right Fusion Nonsterile - [id number] Implanted:Qty: 1 on 06/02/2019 by Zoey Sexton MD at [facility] Right: Foot Mog[employer] Inc [id number] / / Mogad Inc [id number] Pin Fixation Medline Unite L10mm Od1.1mm - [id number] Implanted:Qty: 1 on 06/02/2019 by Zoey Sexton MD at [facility] Right: Foot Medline Industries Inc [id number] / / Medline Industries Inc [id number] Screw Bone Medline Unite L34mm Od4.5mm Head Nonsterile - [id number] Implanted:Qty: 1 on 06/02/2019 by Zoey Sexton MD at [facility] Right: Foot [employer] [id number] / / [employer] [id number] Screw Bone Medline Unite L16mm Od3.5mm Foot Ankle Nonlock - [id number] Implanted:Qty: 1 on 06/02/2019 by Zoey Sexton MD at [facility] Right: Foot [employer] [id number] / / [employer] [id number] Screw Bone Medline Unite L18mm Od3.5mm Foot Ankle Nonlock - [id number] Implanted:Qty: 1 on 06/02/2019 by Zoey Sexton MD at [facility] Right: Foot [employer] [id number] / / [employer] [id number] Screw Bone Medline Unite L20mm Od3.5mm Foot Ankle Nonlock - [id number] Implanted:Qty: 2 on 06/02/2019 by Zoey Sexton MD at [facility] Right: Foot [employer] [id number] / / [employer] Triathlon Cruciate Retain Bead Knee Left 5 Component Femoral Pa 5517-F-501 - [id number] Implanted:Qty: 1 on 04/24/2024 by Zbigniew Noel MD at [facility] [employer] [id number] 02/27/2029 5517-F-5 01 / / [id number] [employer] Triathlon Knee 6 Baseplate Tibial Tritanium 5536-B-600 - [id number] Implanted:Qty: 1 on 04/24/2024 by Zbigniew Noel MD at [facility] [employer] [id number] 11/08/2028 5536-B-6 00 / / [id number] [employer] Insert Tibial Triathlon 6 H11mm Knee Bearing Condylar Stabilize Sterile 0289-X-371-E - [id number] Implanted:Qty: 1 on 04/24/2024 by Zbigniew Noel MD at [facility] [employer] [id number] 12/19/2028 5531-G-6 11-E / / [id number] Explanted Type Area Curb Machine Operator Device Identifier Shelf Expiration Date Model / Serial / Lot [employer] [id number] Anne .45in 9in 1 [employer] Fixation - S0 - [id number] Explanted:Qty: 1 on 08/06/2020 by Zoey Sexton MD at [facility] Wire [employer] [id number] S / 0 / Description:Provisional fixa tion [employer] [id number] Anne .062in 9in 1 [employer] Fixation - [id number] Explanted:Qty: 1 on 06/28/2018 at [facility] Right: Foot [employer] [id number] / / Description:Provisional fixa tion [employer] [id number] Anne .062in 9in 1 [employer] Fixation - [id number] Explanted:Qty: 1 on 06/28/2018 at [facility] Right: Foot [employer] [id number] / / Description:Provisional fixa tion [employer] [id number] Anne .062in 9in 1 [employer] Wire Fixation - [id number] Explanted:Qty: 1 on 06/28/2018 at [facility] Right: Foot [employer] [id number] / / Description:Provisional fixa tion Screw Explanted:Qty: 5 on 08/06/2020 by Zoey Sexton MD at [facility] Other / 0 / Plate Explanted:Qty: 1 on 08/06/2020 by Drew Espinosa MD at [facility] Other / 0 / Procedures Procedure Name Priority Date/Time Associated Diagnosis Comments EGFR Routine 10/18/2024 10:10 AM CDT High risk medications (not anticoagulants) long-term use BASIC METABOLIC PANEL Routine 10/18/2024 10:10 AM CDT High risk medications (not anticoagulants) long-term use POCT GLUCOSE DEVICE Routine 10/16/2024 3 :20 PM CDT CORONARY OCT, 1ST VESSEL Routine 10/16/2024 2:35 PM CDT Coronary artery disease involving shoalwater heart without angina pectoris, unspecified vessel or lesion type CORONARY FLOW VELOCITY (CFR) / INSTATANEOUS FLOW VELOCITY (IFR), 1ST VESSEL Routine 10/16/2024 2:35 PM CDT Coronary artery disease involving shoalwater heart without angina pectoris, unspecified vessel or lesion type RIGHT CORONARY ANGIOGRAPHY Routine 10/16/2024 2:35 PM CDT Coronary artery disease involving shoalwater heart without angina pectoris, unspecified vessel or [...] Routine) 10/04/2024 2:41 PM CDT 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 PRO B-TYPE NATRIURETIC PEPTIDE Routine 10/03/2024 11:50 AM CDT Coronary artery disease involving shoalwater coronary artery of shoalwater heart without angina pectoris BASIC METABOLIC PANEL Routine 10/03/2024 11:50 AM CDT Coronary artery disease involving shoalwater coronary artery of shoalwater heart without angina pectoris CBC WITH AUTO DIFFERENTIAL Routine 10/03/2024 11:50 AM CDT Coronary artery disease involving shoalwater coronary artery of shoalwater heart without angina pectoris TRANSTHORACIC ECHO (TTE) COMPLETE W DOPPLER/CF W CONTRAST Routine 10/03/2024 10:29 AM CDT Cardiomyopathy, ischemic VL US ARTERIAL DUPLEX LOWER EXTREMITY BILATERAL Schedule Routine, Read Routine (OP Routine) 09/05/2024 10:30 AM CDT 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 US SANTIAGO Schedule Routine, Read Routine (OP Routine) 09/05/2024 10:30 AM CDT 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 US DUPLEX SCAN AORTA, IVC ILIAC COMPLETE Schedule Routine, Read Routine (OP Routine) 09/05/2024 10:30 AM CDT 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 Other specified symptoms and signs involving the circulatory and respiratory systems POCT HEMOGLOBIN A1C Routine 09/04/2024 10:38 AM CDT Diabetes mellitus type II, non insulin dependent (HCC) PAIN MGMT IMAGING SHOULDER, HIP, KNEE JOINT/BURSA INJ BILATERAL Schedule Routine, Read Routine (OP Routine) 08/10/2024 11:30 AM PHYSICAL SCIENCES PROFESSOR Greater trochanteric bursitis of both hips CTA ABDOMINAL AORTA AND BILATERAL ILIOFEMORAL RUNOFF Schedule Routine, Read Routine (OP Routine) 09/27/2023 11:27 AM CDT Claudication in peripheral vascular disease POCT LIPID PANEL Routine 09/21/2023 9:27 AM CDT Mixed hyperlipidemia PSA SCREEN Routine 06/17/2023 10:13 AM PHYSICAL SCIENCES PROFESSOR Prostate cancer screening COLONOSCOPY 01/01/2021 12:16 PM [...] BLOOD ORDERABLES F inal Result [facility] [address] Department [place] [address] * Basic metabolic panel (10/18/2024 10:10 AM CDT) Sodium 137 135 - 145 mmol/L Potassium, pl 4.3 3.3 - 4.9 mmol/L [facility] Chloride 101 97 - 110 mmol/L [facility] CO2 22 22 - 32 mmol/L CERNER Anion gap 14 2 - 15 mmol/L CERNER BUN 18 6 - 25 mg/dL [facility] Creatinine 1.14 0.80 - 1.30 mg/dL [facility] Glucose 130 70 - 199 mg/dL [facility] Comment: Interpretive Data Fasting glucose >/= 126 [...] 2022. Calcium 10.0 8.5 - 10.3 mg/dL [facility] Blood 10/18/2024 10:1 0 AM CDT 10/18/2024 3:54 PM CDT Rigo Carroll MD LAB BLOOD ORDERABLES F inal Result [facility] [address] [facility] Department [place] [address] * POCT glucose (10/16/2024 3:20 PM CDT) [facility] Signature Glucose, POC 95 70 - 199 mg/dL Blood 10/16/2024 3:20 PM CDT 10/16/2024 3:20 PM CDT Clifford Sandy MD LAB POCT ORDERABLES - DEVICE Final Result [facility] Department [place] [address] * RIGHT CORONARY ANGIOGRAPHY, CORONARY FLOW VELOCITY [...] and OM2 Known atretic KAUR to LAD TALENT DEVELOPMENT SPECIALIST of the mid RCA THERAPEUTIC RECOMMENDATIONS: Left [...] result were not included. Cardiovascular Procedure Center [facility] [address], [address] [place] [id number] CORONARY AND GRAFT REPORT Patient: Vicky Youssef : 1955 MR number: [id number] Date of Service: 10/16/2024 Pulp And Paper Tester: Clifford Sandy MD Fellow: Salvador Arita MD and Madalyn Reynaga MD Referring physician: Rigo Carroll MD INDICATION: worsening LV function, dyspnea PATIENT CLINICAL PROFILE: Vicky Youssef is a 69 y.o. male with a history of CABG s/p KAUR-LAD (atretic), SVG-Ramus/high OM, SVG-OM2, PCI to LM-LAD with a 4.0 mm [place] SHEMAR, mild LV dysfunction, who is presenting with worsening LV dysfunction and some dyspnea on exertion. PROCEDURE: The risks, benefits and alternatives of the procedures and moderate sedation were explained to the patient and informed consent was obtained. The patient was brought to the cleaner laboratory equipment and placed on the table. Bilateral groins were prepped and draped in the usual sterile fashion. Ultrasound guidance was used to obtain access. I provided direct [id number] moderate conscious sedation which administered by independent [...] The RCA has slow flow and a TALENT DEVELOPMENT SPECIALIST in the mid segment which is unchanged [...] 231(H) 123 - 168 sec POC Performer [id number] [facility] POC Device Number [id number] [facility] Blood 10/16/2024 2:30 PM CDT 10/16/2024 2:30 PM CDT Clifford Sandy MD LAB POCT ORDERABLES - DEVICE Final Result [facility] Department [place] [address] * (ABNORMAL) POCT Activated clotting time, low range (10/16/2024 2:11 PM CDT) ACT 269(H) 123 - 168 sec POC Performer [id number] [facility] POC Device Number [id number] [facility] Blood 10/16/2024 2:11 PM CDT 10/16/2024 2:11 PM CDT Clifford Sandy MD LAB POCT ORDERABLES - DEVICE Final Result [facility] Department [place] [address] * CBC without differential (10/16/2024 12:35 PM CDT) WBC See Comment 3.80 - 9.90 Comment:Credited, specimen c lotted. Hgb See Comment 13.0 - 17.5 [facility] Comment:Credited, specimen c lotted. Hct See Comment 38.9 - 50.3 [facility] Comment:Credited, specimen c lotted. Plt See Comment 150 - 400 [facility] Comment:Credited, specimen c lotted. MPV See Comment 9.1 - 12.3 [facility] Comment:Credited, specimen c lotted. RBC See Comment 4.30 - 5.80 [facility] Comment:Credited, specimen c lotted. MCV See Comment 81.3 - 96.4 [facility] Comment:Credited, specimen c lotted. MCH See Comment 27.1 - 33.3 [facility] Comment:Credited, specimen c lotted. MCHC See Comment 32.3 - 35.7 [facility] Comment:Credited, specimen c lotted. RDW CV See Comment 11.1 - 14.9 [facility] Comment:Credited, specimen c lotted. RDW SD See Comment 35.7 - 48.1 [facility] Comment:Credited, specimen c lotted. NRBC abs See Comment 0.00 - 0.01 [facility] Comment:Credited, specimen c lotted. Blood 10/16/2024 12:3 5 PM CDT 10/16/2024 2:05 PM CDT Narrative [facility] - 10/16/2024 2:33 PM CDT To be drawn after hydration bolus complete Clifford Sandy MD LAB BLOOD ORDERABLES Final Result Performing Organization Address [facility] [[email or web address]] Co de Phone Number [facility] [place] [address] * POCT glucose (10/16/2024 9:19 AM CDT) Pathologist [facility] Glucose, POC 118 70 - 199 mg/dL Blood 10/16/2024 9:19 AM CDT 10/16/2024 9:19 AM CDT Clifford Sandy MD LAB POCT ORDERABLES - DEVICE Final Result Performing Organization Address [facility] de Phone Number [facility] [place] [address] * ECG 12 lead (10/16/2024 8:32 AM CDT) [facility] Ventricular Rate EKG/Min 70 BPM [facility] Atrial Rate 70 BPM [facility] DE-Interval (MSEC) 304 ms [facility] QRS-Interval (MSEC) 132 ms [facility] QT-Interval (MSEC) 374 ms [facility] QTc 403 ms [facility] P [place] 2 degrees [facility] R [place] 1 degrees [facility] T [place] 252 degrees [facility] Diagnosis Atrial-paced rhythm with prolonged AV conduction Left ventricular hypertrophy with QRS widening and repolarization abnormality ( Sokolow-Pereria , [place] product ) Cannot rule out Septal infarct , age undetermined Abnormal ECG When compared with ECG of 25-NOV-2022 12:06, no significant change Confirmed by ERNESTINE TAVERAS M.D ([id number]) on 10/17/2024 3:04:55 PM [facility] 10/16/2024 8:32 AM CDT 10/17/2024 3:04 PM CDT Clifford Sandy MD ECG ORDERABLES Lilia l Result Performing Organization Address [facility] [[email or web address]] Co de Phone Number [facility] * DEVICE CHECK - REMOTE (10/08/2024 3:10 AM CDT) Anatomical Region Laterality Modality Other 10/08/2024 3:10 AM CDT Narrative 10/11/2024 11:10 AM CDT Interpretation Summary: Battery and Leads (BL) Normal parameters noted on battery and lead(s) --- 35% remaining longevity (implanted 2014). Lead impedance, sensing, and threshold trends stable and appropriate. Presenting Rhythm (DE) Atrial Pacing-Ventricular Pacing (AP-WOUND/OSTOMY NURSE) --- AP/WOUND/OSTOMY NURSE 70s. Arrhythmic events (AE) No new arrhythmic [...] and threshold trends stableand appropriate. Presenting Rhythm (DE) Atrial Pacing-Ventricular Pacing (AP-WOUND/OSTOMY NURSE) --- AP/WOUND/OSTOMY NURSE 70s. Arrhythmic events (AE) No new arrhythmic [...] Study Date: 10/04/2024 1:37:00 PM Gender: M Millwright Apprentice: Leandra Frazier RN/RVT Ref Provider: IVET MONTANA Quality: Adequate Order Provider: IVET MONTANA PROCEDURES: Arterial Report: Bilateral lower extremity arterial Doppler exam at rest and with exercise. INDICATIONS: I70.213 Atherosclerosis of shoalwater arteries of extremities with intermittent claudication, bilateral legs. HISTORY: Claudication lower extremities L>R. HTN/HLD/DM/CAD/PREV SMOKER. COMPARISONS: The previous exam was completed on 09/05/2024. Compared to prior RT PT/DP .89/.53 LT PT/DP .92/.74. MEASUREMENTS: Right Value Left Value Rt Brachial Pressure 158 mmHg Lt Brachial Pressure 151 mmHg Rt FRESCO ARTIST Pressure 169 mmHg Lt FRESCO ARTIST Pressure 163 mmHg Rt DPA Pressure 164 [...] Study Date: 10/04/2024 1:37:00 PM Gender: M Millwright Apprentice: Leandra Frazier RN/RVT Ref Provider: IVET MONTANA Quality: Adequate Order Provider: IVET MONTANA PROCEDURES: Arterial Report: Bilateral lower extremity arterial Doppler exam at rest and withexercise. INDICATIONS: I70.213 Atherosclerosis of shoalwater arteries of extremities withintermittent claudication, bilateral legs. HISTORY: Claudication lower extremities L>R. HTN/HLD/DM/CAD/PREV SMOKER. COMPARISONS: The previous exam was completed on 09/05/2024. Compared to prior RT PT/DP .89/.53 LT PT/DP .92/.74. MEASUREMENTS: Right Value Left Value Rt Brachial Pressure 158 mmHg Lt Brachial Pressure 151 mmHg Rt FRESCO ARTIST Pressure 169 mmHg Lt FRESCO ARTIST Pressure 163 mmHg Rt DPA Pressure 164 [...] 1:31:20 PM CDT us Ivet Montana MD IMG US PROCEDURES Final Result * Pro B-type [...] MD LAB BLOOD ORDERABLES F inal Result [facility] Department [place] [address] * CBC with auto differential (10/03/2024 11:50 [...] MD LAB BLOOD ORDERABLES F inal Result [facility] * Basic metabolic panel (10/03/2024 11:50 AM CDT) [facility] Glucose 97 64 - 99 mg/dL [facility] [...] LAB BLOOD ORDERABLES F inal Result [facility] * TRANSTHORACIC ECHO (TTE) COMPLETE W DOPPLER/CF W CONTRAST (10/03/2024 10:29 AM CDT) Anatomical Region Laterality Modality Ultrasound 10/03/2024 9:38 AM CDT Narrative 10/03/2024 11:12 AM CDT [facility] [place] [address] Transthoracic Echocardiographic Report Patient Name: VICKY YOUSSEF D : 1955 (69y 6m) Gender: M Study Date: 10/03/2024 09:38:56 AM Ht(Inch): 71 Wt(Lb): 210.98 BSA: 2.19 Millwright Apprentice: Soco Marcano RDCS Location: [facility] Order Provider: RIGO CARROLL Heart Rate: 70 [...] LA Length 4C 5.23 cm AI Decel Clay 2.86 m/s2 LA Length 2C 4.36 cm [...] Procedure Note Rigo Carroll MD - 10/03/2024 [facility] [place] [address] Transthoracic Echocardiographic Report Patient Name: VICKY YOUSSEF D : 1955 (69y 6m) Gender: M Study Date: 10/03/2024 09:38:56 AM Ht(Inch): 71 Wt(Lb): 210.98 BSA: 2.19 Millwright Apprentice: Soco Marcano RDCS Location: [facility] Order Provider:RIGO CARROLL Heart Rate: 70 BMI: [...] [ -25.0 - -18.0 ] AI Decel Oafu9282.25 sec LA Length 4C 5.23 cm AI Decel Slope2.86 m/s2 LA Length 2C 4.36 cm AI HMB662.99 msec LA Volume BP 50.69 ml Lat E` Vel4.0 cm/sec [ 10.0 - 25.0 ] LA Volume Index 23.15 ml/m2 [ 16.00 - 34.00 ] RV S`7.62 cm/sec RV Base Dimen 2D 3.9 cm [ 2.5 - 4.2 ] PV Peak Vel0.8 m/s [ 0.4 - 0.8 ] TAPSE 0.94 cm [ 1.71 - 5.00 ] PV Peak PG2.56 mmHg RA Jhhcyc56.65 ml RA Volume Index17.19 ml/m2 IVC Diam1.47 cm AoR Diam 2D 3.44 cm [ 3.10 - 3.70 ] Ao Root Index 1.57 cm/m2 [ 1.00 - 2.00 ] Asc Ao Diam 2D3.42 cm Asc Ao Index1.56 cm/m2 Electronically Signed By: Rigo Carroll M.D. 10/03/2024 11:12:15 AM CDT CC: Rigo Carroll M.D. Rigo Carroll MD CV ECHO PROCEDURES Fin al Result * US Arterial Duplex Lower Extremity Bilateral (09/05/2024 10:30 AM CDT) Anatomical Region Laterality Modality Vascular Bilateral Ultrasound 09/05/2024 9:33 AM CDT Narrative 09/06/2024 2:37 PM CDT [facility] [address] [address] Lower Extremity Arterial Duplex Report Patient Name: VICKY YOUSSEFGriselda : 1955 (69y 5m) Gender: M Study Date: 09/05/2024 09:33:41 AM Ht(Inch): Wt(Lb): BSA: Millwright Apprentice: CORI Location: [facility] Order Provider: IVET MONTANA Quality: Adequate Ref Provider: IVET MONTANA PROCEDURES: Arterial Report: A non-invasive vascular imaging study of the bilateral lower extremity arteries was performed using B-mode ultrasound, color flow, and spectral Doppler. INDICATIONS: R>L claudication, remote hx BCIA stents. HISTORY: HTN. HLD. DM. CAD-AK S/P stent/CABG. Afib. Pacemaker. Former smoker. COMPARISONS: Prior CTA on 09/27/23. MEASUREMENTS: Right Value Left Value Rt DIRECTOR OF BANDS Dst PSV 77.00 cm/sec Lt DIRECTOR OF BANDS Dst PSV 87.00 cm/sec Rt Profunda Prx [...] MD - 09/06/2024 [facility] [place] [address] Lower Extremity Arterial Duplex Report Patient Name: VICKY YOUSSEF Griselda : 1955 (69y 5m) Gender: M Study Date: 09/05/2024 09:33:41 AM Ht(Inch): Wt(Lb): BSA: Millwright Apprentice: CORI Location: [facility] Order Provider: IVET MONTANA Quality: Adequate Ref Provider: IVET MONTANA PROCEDURES: Arterial Report: A non-invasive vascular imaging study of the bilaterallower extremity arteries was performed using B-mode ultrasound, color flow, and spectralDoppler. INDICATIONS: R>L claudication, remote hx BCIA stents. HISTORY: HTN. HLD. DM. CAD-AK S/P stent/CABG. Afib. Pacemaker. Former smoker. COMPARISONS: Prior CTA on 09/27/23. MEASUREMENTS: Right Value Left Value Rt DIRECTOR OF BANDS Dst PSV 77.00 cm/sec Lt DIRECTOR OF BANDS Dst PSV 87.00 cm/sec Rt Profunda Prx [...] 1:48:05 PM CDT us Ivet Montana MD IMG US PROCEDURES Final Result * US SANTIAGO (09/05/2024 10:30 AM CDT) Anatomical Region Laterality Modality Vascular N/A Ultrasound 09/05/2024 8:50 AM CDT Narrative 09/06/2024 2:37 PM CDT [facility] [address] [address] Lower Extremity Arterial Doppler Report Patient Name: VICKY YOUSSEF D : 1955 Study Date: 09/05/2024 8:50:00 AM Gender: M Millwright Apprentice: Maureen Vásquez RVT Location: [facility] Ref Provider: IVET MONTANA Quality: Adequate Order Provider: IVET MONTANA PROCEDURES: Arterial Report: Ankle - Brachial Index Doppler exam. INDICATIONS: Remote hx BCIA stents; R>L claudication. HISTORY: HTN. HLD. DM. CAD-AK S/P stent/CABG. Afib. Pacemaker. Former smoker. COMPARISONS: The previous exam was completed on 11/19/23. Compared to prior there is disease progression at bilateral dorsalis pedis arteries. MEASUREMENTS: Right Value Left Value Rt Brachial Pressure 159 mmHg Lt Brachial Pressure 146 mmHg Rt FRESCO ARTIST Pressure 142 mmHg Lt FRESCO ARTIST Pressure 147 mmHg Rt DPA Pressure 84 [...] MD - 09/06/2024 [facility] [address] [place] [address] Lower Extremity Arterial Doppler Report Patient Name: VICKY YOUSSEF Griselda : 1955 Study Date: 09/05/2024 8:50:00 AM Gender: M Millwright Apprentice: Maureen Vásquez RVT Location: [facility] Ref Provider: IVET MONTANA Quality: Adequate Order Provider: IVET MONTANA PROCEDURES: Arterial Report: Ankle - Brachial Index Doppler exam. INDICATIONS: Remote hx BCIA stents; R>L claudication. HISTORY: HTN. HLD. DM. CAD-AK S/P stent/CABG. Afib. Pacemaker. Former smoker. COMPARISONS: The previous exam was completed on 11/19/23. Compared to prior there is disease progression at bilateral dorsalis pedisarteries. MEASUREMENTS: Right Value Left Value Rt Brachial Pressure 159 mmHg Lt Brachial Pressure 146 mmHg Rt FRESCO ARTIST Pressure 142 mmHg Lt FRESCO ARTIST Pressure 147 mmHg Rt DPA Pressure 84 [...] 1:45:46 PM CDT us Ivet Montana MD IM US PROCEDURES Final Result * US Duplex Scan Aorta, IVC Iliac Complete (09/05/2024 10:30 AM CDT) Anatomical Region Laterality Modality Vascular N/A Ultrasound 09/05/2024 8:52 AM CDT Narrative 09/06/2024 2:37 PM CDT [facility] [address] [address] Abdominal Aortic Duplex Ultrasound Report Patient Name: KRISTINAVICKY D : 1955 Study Date: 09/05/2024 8:52:47 AM Gender: M Millwright Apprentice: Location: [facility] Ref Provider: IVET MONTANA Quality: [...] MD - 09/06/2024 [facility] [address] [place] [address] Abdominal Aortic Duplex Ultrasound Report Patient Name: VICKY YOUSSEFGriselda : 1955 Study Date: 09/05/2024 8:52:47 AM Gender: M Millwright Apprentice: Location: [facility] Provider: IVET MONTANA Quality: Adequate Order Provider: [...] 09/06/2024 1:47:06 PM CDT Ivet Montana MD [facility] US PROCEDURES Final Result * (ABNORMAL) POCT hemoglobin A1c (09/04/2024 10:38 AM CDT) Hemoglobin A1C, POC 6.4 4.0 - 5.6 % Blood 09/04/2024 10:3 8 AM CDT Perry Romero MD POINT OF CARE TEST ORDERABLES Final Result * Imaging Shoulder, Hip, Knee Joint/Bursa INJ INJ Bilateral () (08/10/2024 11:30 AM PHYSICAL SCIENCES PROFESSOR) Narrative [facility] - 08/10/2024 11:30 AM PHYSICAL SCIENCES PROFESSOR The images from this study are not [...] POCT lipid panel (09/21/2023 9:27 AM CDT) [facility] Cholesterol, POC <100 mg/dL Triglycerides, POC 214 mg/dL Capillary blood 09/21/2023 9 :27 AM CDT Perry Romero MD POINT OF CARE TEST ORDERABLES Final Result * PSA screen (06/17/2023 10:13 AM PHYSICAL SCIENCES PROFESSOR) Pathologist [facility] PSA 0.4 0.0 - 4.0 ng/mL [facility] - 01 Comment: Shahbaz ECLIA methodology. According to the [employer], Serum PSA should decrease and [...] malignant disease. Blood 06/17/2023 10:1 3 AM PHYSICAL SCIENCES PROFESSOR 06/17/2023 Narrative [facility] - 06/18/2023 6:11 AM PHYSICAL SCIENCES PROFESSOR Performed at: - [facility] [address] [id number] Contractor [employer]: Edgar Menard PhD, Phone: [phone] us Mamie Rose [employer] LAB BLOOD ORDERABLES Fin al Result [facility] - 01 * COLONOSCOPY (01/01/2021 12:16 PM CDT) Anatomical Region Laterality Modality Other Narrative Procedure Note Emily Zeng MD - 01/01/2021 12:16 PM CDT [facility] Patient Name: Vicky Youssef Procedure Date: 01/01/2021 12:16 PM Date of : 1955 Admit Type: Outpatient Age: 65 Gender: Male Attending MD: Huy Reed Room: [facility] ENDOSCOPY ROOM 3 Note Status: Finalized Procedure: [...] passed under direct vision.The CF HQ [id number] endoscope was introducedthrough the anus and advanced to the cecum, identified by appendiceal orifice and ileocecal valve. The colonoscopy was performed without difficulty. The patient tolerated the procedure well. The qualityof the bowel preparation was evaluated using the BBPS ([place] Bowel Preparation Scale) with scores of:Right Colon [...] On: 01/01/2021 12:16 PM Recognized by the [employer] for promoting quality in endoscopy us Emily Zeng MD ENDOSCOPY PROCEDUR ES Final Result from Last 3 Months or Most Recently Relevant to Health Maintenance Insurance MEDICARE BLUE CROSS MEDICARE SUPPLEMENT MEDICARE [facility] MEDICARE MEDICARE [facility] MEDICARE SUPPLEMENT MEDICARE [employer] MEDICARE SUPPLEMENT MEDICARE [facility] MEDICARE SUPPLEMENT Advance Directives For more information, please contact: [phone] * Full Code (Latest Code Status on [...] 4:34 PM 05/02/2021 4:45 PM Care Teams Swing Driver Relationship Specialty Start Date End Date Perry Romero MD PCP - General Internal Medicine 02/23/20 Rigo Carroll MD Ophthalmologist Cardiology 05/23/19 Love Jones, PT Physical Therapist Physical Therapy 09/28/22 Arthur Bateman MD [address] [address] Referring Physician Anesthesiology 09/28/22 Karl Cha MD [address] [place] [address] Referring Physician Orthopedic Surgery 11/24/23
[2024-10-31 12:45] VITALS: BP 122/70; PULSE 70; RESP 20; TEMP 36.4; O2SAT 96
--- NOTE | 2024-10-31 13:54 | ED_ITS ---
HPI - Extremity Injury (Lower) General Chief Complaint: Extremity Injury, Lower Stated Complaint: R. foot stepped on by a horse Time Seen by Provider: 10/31/24 13:56 Source: patient Mode of arrival: ambulatory Limitations: no limitations History of Present Illness HPI Narrative: Patient is a 69-year-old male who presents the ED with report of right foot pain. Patient reports a horse stepped on his right foot dorsal foot on Wednesday. He has some pain and bruising to his 2nd through 4th metatarsal regions, on the dorsal and plantar aspect of his foot. Is able to ambulate, but has pain with this. Has been taking ibuprofen with some improvement. Does note history of multiple previous metatarsal surgeries years ago. Denies numbness. Denies any other injuries. Related Data Home Medications ?Medication ?Instructions ?Recorded ?Confirmed ?Last Taken ?Type clopidogrel 75 mg tablet 75 mg PO DAILY 07/04/19 06/27/24 06/19/24 History ezetimibe 10 mg tablet 10 mg PO DAILY 07/04/19 06/27/24 06/27/24 History lisinopril 5 mg tablet 5 mg PO DAILY 07/04/19 06/27/24 06/27/24 History amlodipine 2.5 mg tablet 2 mg PO DAILY 01/10/20 06/27/24 06/27/24 History finasteride 5 mg tablet 5 mg PO DAILY 01/10/20 06/27/24 06/27/24 History metoprolol tartrate 25 mg tablet 25 mg PO DAILY 07/13/21 06/27/24 06/27/24 History fenofibrate nanocrystallized 145 145 mg PO DAILY 06/13/24 06/27/24 06/27/24 History mg tablet meloxicam 7.5 mg tablet 7.5 mg PO PRN pain 06/13/24 06/27/24 Unknown History nitroglycerin 0.4 mg sublingual 0.4 mg sublingual Q5M PRN chest 06/13/24 06/13/24 Unknown History tablet pain Allergies Allergy/AdvReac Type Severity Reaction Status Date / Time No Known Allergies Allergy Verified 10/31/24 12:33 Review of Systems Review of Systems: All systems reviewed & are unremarkable except as noted in HPI. All systems reviewed & are unremarkable except as noted in HPI and below PMFSH Past Medical History Medical History Myocardial infarction Degenerative arthritis of knee, bilateral Pain in both knees Closed fracture of lateral portion of left tibial plateau BMI 33.0-33.9,adult Arthritis, lumbar spine Vascular disease Heart disease Surgical History Surgical History H/O heart artery stent Stented coronary artery Pacemaker History of heart surgery Triple bypass 2003 H/O foot surgery 06/2019 Dr. Puentes Family History Family History Mother Family history of chronic obstructive pulmonary disease Family history of coronary artery disease Heart disease Sibling Family history of coronary artery disease Family history of heart disease in male family member before age 55 Hypertension Lung cancer both brothers Father Family history of coronary artery disease Family history of congestive heart failure Family history of malignant neoplasm of brain Kidney disease Social History Social History Smoking packs per day: 1 Smoking cigarettes per day: 20.0 Years smoked: 22 Smoking pack-years: 22.00 Smoking status: Former smoker Second hand tobacco smoke exposure: No Smoking end date: 06/14/98 Alcohol intake: never Substance use: never Substance use type: does not use Do You Feel Safe in your Home?: Yes Lack of Transportation: No Lack of Food: Never True Current Housing: I Have Housing Concerned About Future Housing: No Difficulty Paying Gas/Electric Bills: No Difficulty Paying for Meds: No Currently Unemployed: No Education: Trade/Vocational Certificate Difficulty w/ Childcare or Family Care: No Living arrangements: alone Occupation/Education: retired Additional occupation/education comments: Retired Spiritual care concerns: No Exam Narrative: GENERAL: Well appearing, well-nourished, non-toxic, in no acute distress. HEAD: Normocephalic, atraumatic. RESPIRATORY: Airway patent, respirations nonlabored. CARDIOVASCULAR: Regular rate and rhythm. Pedal pulses intact and easily palpable. MUSCULOSKELETAL: No gross deformities. Mild bruising to his 2nd through 4th metatarsal regions, on dorsal aspect of R foot. Focal TTP. Tenderness on plantar aspect of ball of foot. Sensation intact. Capillary refill intact. SKIN: Warm, dry, normal color. NEURO: A&O X3. Speech clear. Mildly antalgic gait. No ataxic movements. PSYCHIATRIC: Appropriate mood and affect. Normal interaction. Course Vital Signs Vital signs: Vital Signs Temperature 97.5 F L 10/31/24 12:45 Pulse Rate 70 10/31/24 12:45 Respiratory Rate 20 10/31/24 12:45 Blood Pressure 122/70 10/31/24 12:45 Pulse Oximetry 96 10/31/24 12:45 Oxygen Delivery Room Air 10/31/24 12:45 Temperature 97.5 F L 10/31/24 12:45 Pulse Rate 70 10/31/24 12:45 Respiratory Rate 10/31/24 12:45 Blood Pressure 122/70 10/31/24 12:45 Pulse Oximetry 96 10/31/24 12:45 Oxygen Delivery Room Air 10/31/24 12:45 MDM - Extremity Injury (Lower) MDM Narrative Medical decision making narrative: Patient?s injury is consistent with musculoskeletal etiology. No signs of neurologic or vascular compromise on physical examination. Compartments are soft without signs of compartment syndrome. XR of right foot negative for fracture. Pain is consistent with foot contusion. Patient given postop shoe for assistance with ambulation. Advised to continue Tylenol/ibuprofen, rice therapy. Patient is felt to be stable for discharge home and further outpatient management and treatment. Will refer to orthopedics for further evaluation if needed. Given return precautions. Discharged in stable condition. Medical Records Attestation: I reviewed the patient's medical records. Imaging Data Attestation: I personally reviewed and interpreted this imaging study as follows: Radiologist's impression: ITS Impressions Foot X-Ray 10/31/24 14:07 IMPRESSION: No acute osseous abnormality of the right foot. Discharge Plan Discharge Clinical Impression: Contusion of right foot Qualifiers: Encounter type: initial encounter Qualified Code(s): S90.31XA - Contusion of right foot, initial encounter Patient Disposition: Home Condition: Stable Instructions: Antibiotic Form, Foot Contusion (ED) Additional Instructions: Your imaging did not show any evidence of fracture. You will likely be sore over the next few days. Recommend frequent icing to foot. Continue Tylenol and ibuprofen as needed for pain. Tramadol as needed for more severe pain. Follow-up with orthopedics for further evaluation if needed. Return to the ED for new or worsening concerns. Patient Language: Cook Islander Prescriptions: New tramadol 50 mg tablet 50 mg PO Q6H PRN (Reason: pain) Qty: 3 0RF No Action finasteride 5 mg tablet 5 mg PO DAILY aspirin 81 mg tablet,delayed release (DR/EC) 81 mg PO DAILY Qty: 100 0RF Patient Comments: HOLD 7 days preop metoprolol tartrate 25 mg tablet 25 mg PO DAILY pantoprazole 40 mg tablet,delayed release (DR/EC) 40 mg PO QAM Qty: 30 5RF Rx Instructions: Take 30 min before first meal of day fenofibrate nanocrystallized 145 mg tablet 145 mg PO DAILY meloxicam 7.5 mg tablet 7.5 mg PO PRN nitroglycerin 0.4 mg tablet, sublingual 0.4 mg sublingual Q5M PRN (Reason: chest pain) tramadol 50 mg tablet 50 mg PO Q6H PRN (Reason: pain) Qty: 20 0RF nitrofurantoin monohyd/m-cryst [Macrobid] 100 mg capsule 100 mg PO Q12H 14 Days Qty: 28 0RF Rx Instructions: must administer with a meal/food clopidogrel 75 mg tablet 75 mg PO DAILY Patient Comments: HOLD 7 days ezetimibe 10 mg tablet 10 mg PO DAILY lisinopril 5 mg tablet 5 mg PO DAILY metformin 1,000 mg tablet 1,000 mg PO DAILY Qty: 90 1RF amlodipine 2.5 mg tablet 2 mg PO DAILY Follow-up/Referrals: Dayton Lawler MD [Physician] - (ORTHOPEDICS) Nick,Perry Goss MD [Primary Care Provider] - Time of Disposition: 14:28
[2024-10-31] MEDS: ACETAMINOPHEN 500 MG TABLET 1000 MG PO (14:01)
--- OUTSIDE RECORDS SUMMARY | 2024-10-31 14:20 | XMS_ITS | Encounter Summary ---
Author Organization [facility] Address [address] [place] [address] Phone Care Team Providers Care Patient Access Name Role Phone Leonidas Carroll MD Unavailable [phone] Perry Romero MD Primary Care Provider [phone] Love Jones PT Unavailable Unavailab Arthur Law MD Unavailable Karl Cha MD Unavailable [phone] Encounter Details Date Type Department Care Team (Latest Contact Info) Description 10/16/2024 Results Follow-Up [facility] Cardiology [address] [facility] Advanced Medicine 8th [place] [address] [place] [address] Leonidas Carroll MD [address] [facility] [address] [place] [address] Cardiac Catheterization Social History Tobacco [...] [facility] or yazidism services? 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 Never 10/16/2024 9:08 AM CANDACET Yair Ruiz RN documented as of this encounter Plan of Treatment Not on file documented as of this encounter Goals Goal Patient Goal Type Associated Problems Recent Progress Patient-Stated? Author CCM Chronic Pain Care Plan Chronic Care Management No change(08/10 10:32 AM RIP SAW OPERATOR) No Brissa Muse RN Note: Problem: Chronic [...] 0 AM CDT 10/18/2024 3:54 PM CDT Loenidas Carroll MD LAB BLOOD ORDERABLES F inal Result [facility] [address] Department [place] [address] documented in this encounter Visit Diagnoses Diagnosis High risk medications (not anticoagulants) long-term use- Primary Encounter for long-term (current) use of other medications documented in this encounter Care Teams Patient Access Relationship Specialty Start Date End Date Perry Romero MD PCP - General Internal Medicine 02/23/20 Leonidas Carroll MD Information Assurance Specialist Cardiology 05/23/19 Love Jones, PT Physical Therapist Physical Therapy 09/28/22 Arthur Bateman MD [address] [address] Referring Physician Anesthesiology 09/28/22 Karl Cha MD [address] [place] [address] Referring Physician Orthopedic Surgery 11/24/23 documented as of this encounter
--- OUTSIDE RECORDS SUMMARY | 2024-10-31 14:20 | XMS_ITS | Encounter Summary ---
Author Organization [facility] Address [address] [place] [address] Care Team Providers Care Bench Lathe Operator Name Role Phone Leonidas Carroll MD Unavailable [phone] Perry Romero MD Primary Care Provider [phone] Loev Jones PT Unavailable Unavailab Arthur Law MD Unavailable Karl Cha MD Unavailable [phone] Encounter Details Date Type Department Care Team (Late st Contact Info) Description 07/08/2023 Telephone [facility] [address] [facility] Advanced Medicine [address] [place], [place] [id number] Arthur Bateman MD [address] [facility] [address] [place] [address] Social History Tobacco Use Types Packs/Day Years [...] week 05/02/2021 How often do you attend [facility] or taoist services? 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 Author CCM Chronic Pain Care Plan Chronic Care Management No change(08/10 10:32 AM FOOD AND BEVERAGE ATTENDANT) No Brissa Muse RN Note: Problem: Chronic Pain Goals: 1. Minimize further functional decline 2. Maximize quality of life 3. Control pain Strategies: - Activity/exercise program recommendation - Conservative stepwise pain medicine strategy with multi-disciplinary approach - Recommend healthy lifestyle strategies and compensatory methods as needed documented as of this encounter Visit Diagnoses Not on filedocumented in this encounter Care Teams Bench Lathe Operator Relationship Specialty Start Date End Date Perry Romero MD PCP - General Internal Medicine 02/23/20 Leonidas Carroll MD Director Clinical Pharmacology Cardiology 05/23/19 Love Jones, PT Physical Therapist Physical Therapy 09/28/22 Arthur Bateman MD [address] [address] Referring Physician Anesthesiology 09/28/22 Karl Cha MD [address] [place] [address] Referring Physician Orthopedic Surgery 11/24/23 documented as of this encounter
--- OUTSIDE RECORDS SUMMARY | 2024-10-31 14:20 | XMS_ITS | Encounter Summary ---
Author Organization [facility] Address [address] [place] [address] Phone Care Team Providers Care Chronometer Tester Name Role Phone Leonidas Carroll MD Unavailable [phone] Perry Romero MD Primary Care Provider Love Jones PT Unavailable Unavailab Arthur Law MD Unavailable Karl Cha MD Unavailable [phone] Encounter Details Date Type Department Care Team (Late st Contact Info) Description 06/22/2024 Telephone [facility] Cardiology [address] [facility] 8th [place] [address] [place] [address] Leonidas Carroll MD [address] [facility] [address] [place] [address] Social History Tobacco Use Types [...] do you attend [facility] or protestant services? 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 Author CCM Chronic Pain Care Plan Chronic Care Management No change(08/10 10:32 AM SURVEY ASSOCIATE) Brissa Pate, RN Note: Problem: Chronic Pain Goals: 1. Minimize further functional decline 2. Maximize quality of life 3. Control pain Strategies: - Activity/exercise program recommendation - Conservative stepwise pain medicine strategy with multi-disciplinary approach - Recommend healthy lifestyle strategies and compensatory methods as needed documented as of this encounter Visit Diagnoses Not on filedocumented in this encounter Care Teams Chronometer Tester Relationship Specialty Start Date End Date Perry Romero MD PCP - General Internal Medicine 02/23/20 Leonidas Carroll MD Throw Out Clerk Cardiology 05/23/19 Love Jones, PT Physical Therapist Physical Therapy 09/28/22 Arthur Bateman MD [address] [address] Referring Physician Anesthesiology 09/28/22 Karl Cha MD [address] [place] [address] Referring Physician Orthopedic Surgery 11/24/23 documented as of this encounter
--- OUTSIDE RECORDS SUMMARY | 2024-10-31 14:20 | XMS_ITS | Encounter Summary ---
Author Organization [facility] Address [address] [place] [address] Phone Care Team Providers Care Tool And Fixture Repairer Name Role Phone Tim Sanchez MD Primary Care Provider [phone] Lina Mcadams MD Primary Care Provide r Deacon Eisenberg DO Primary Care Provider [phone] Leonidas Carroll MD Unavailable [phone] Perry Romero MD Primary Care Provider [phone] Love Jones PT Unavailable Unavailab Arthur Law MD Unavailable Karl Cha MD Unavailable [phone] Encounter Details Date Type Department Care Team (Late st Contact Info) Description 11/24/2015 Orders Only [facility] CAR CLINCONV ProviderHeena MD [address] [place] [address] Social History Tobacco Use Types Packs/Day Years Used Date Smoking Tobacco: Never Assessed Sex and Gender Information Value Date Recorded Sex Assigned at Not on file 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 Gender Identity Not on file Sexual Orientation [...] on filedocumented in this encounter Care Teams Tool And Fixture Repairer Relationship Specialty Start Date End Date Tim Sanchez MD [address] [facility] [address] [place] [address] PCP - General 09/29/16 01/13/18 Lina Mcadams MD [address] [facility] [address] [place] [address] PCP - General 01/14/18 11/21/18 Deacon Eisenberg DO [address] [facility] [address] [place] [address] PCP - General 11/22/18 02/22/20 Perry Romero MD [address] [address] PCP - General Internal Medicine 02/23/20 Leonidas Carroll MD [address] [facility] [address] [place] [address] Supervisor Dimension Warehouse Cardiology 05/23/19 Love Jones, PT Physical Therapist Physical Therapy 09/28/22 Arthur Bateman MD [address] [facility] [address] [place] [address] Referring Physician Anesthesiology 09/28/22 Karl Cha MD [address] [facility] [address] [place] [address] Referring Physician Orthopedic Surgery 11/24/23 documented as of this encounter
--- OUTSIDE RECORDS SUMMARY | 2024-10-31 14:20 | XMS_ITS | Encounter Summary ---
Author Organization [facility] Address [address] [place] [address] Phone Care Team Providers Care Vice President Of Instruction Name Role Phone Deacon Eisenberg DO Primary Care Provider [phone] Provider, None Primary Care Provider Unavailabl e Encounter Details Date Type Department Care Team (Late st Contact Info) Description 02/15/2020 Transcribe Orders [facility] Preop/Pacu II 1 [place] [phone] Anish Martinez MD [address] [place] [address] Pre-op testing (Primary Dx) Social History Tobacco [...] ABO TYPING AB 02/20/2020 2:05 PM CDT [facility] BLOOD BANK RH Positive 02/20/2020 2:05 PM CDT [facility] BLOOD [facility] ABSC Negative 02/20/2020 2:05 PM CDT [facility]OD [facility] Blood Venipuncture / Unknown 02/20/2020 10:52 AM CDT 02/20/2020 11:43 AM CDT us Anish Martinez MD BLOOD BANK ORDERABLES Edited Result - Final [facility] BLOOD BANK [address] [place] [address] documented in this encounter Visit Diagnoses Diagnosis Pre-op testing- Primary Preoperative examination, unspecified documented in this encounter Care Teams Vice President Of Instruction Relationship Specialty Start Date End Date Deacon Eisenberg DO [address] [address] PCP - General Family Medicine 11/15/19 02/19/20 Provider, None [place] PCP - General 02/20/20 documented as of this encounter
--- OUTSIDE RECORDS SUMMARY | 2024-10-31 14:20 | XMS_ITS | Encounter Summary ---
Author Organization [facility] Address [address] [place] [address] Phone Care Team Providers Care Solvent Mixer Name Role Phone Tim Sanchez MD Primary Care Provider [phone] Lina Mcadams MD Primary Care Provide r Deacon Eisenberg DO Primary Care Provider [phone] Leonidas Carroll MD Unavailable [phone] Perry Romero MD Primary Care Provider [phone] Love Jones PT Unavailable Unavailab Arthur Law MD Unavailable Karl Cha MD Unavailable [phone] Encounter Details Date Type Department Care Team (Late st Contact Info) Description 09/15/2016 Orders Only [facility] CAR CLINCONV ProviderHeena MD [address] [place] [address] Social History Tobacco Use Types Packs/Day Years Used Date Smoking Tobacco: Never Assessed Sex and Gender Information Value Date Recorded Sex Assigned at Not on file Legal Sex Male 11:34 PM TISSUE COORDINATOR Gender Identity Not on file Sexual Orientation [...] on filedocumented in this encounter Care Teams Solvent Mixer Relationship Specialty Start Date End Date Tim Sanchez MD [address] [facility] [address] [place] [address] PCP - General 09/29/16 01/13/18 Lina Mcadams MD [address] [facility] [address] [place] [address] PCP - General 01/14/18 11/21/18 Deacon Eisenberg DO [address] [facility] [address] [place] [address] PCP - General 11/22/18 02/22/20 Perry Romero MD [address] [address] PCP - General Internal Medicine 02/23/20 Leonidas Carroll MD [address] [facility] [address] [place] [address] Center Receptionist Cardiology 05/23/19 Love Jones, PT Physical Therapist Physical Therapy 09/28/22 Arthur Bateman MD [address] [facility] [address] [place] [address] Referring Physician Anesthesiology 09/28/22 Karl Cha MD [address] [facility] [address] [place] [address] Referring Physician Orthopedic Surgery 11/24/23 documented as of this encounter
--- OUTSIDE RECORDS SUMMARY | 2024-10-31 14:20 | XMS_ITS | Encounter Summary ---
Author Organization [facility] Address [address] [place] [address] Phone Care Team Providers Care Licensed Mental Health Professional Name Role Phone iTm Sanchez MD Primary Care Provider [phone] Lina Mcadams MD Primary Care Provide r Deacon Eisenberg DO Primary Care Provider [phone] Leonidas Carroll MD Unavailable [phone] Perry Romero MD Primary Care Provider [phone] Love Jones PT Unavailable Unavailab Arthur Law MD Unavailable Karl Cha MD Unavailable [phone] Encounter Details Date Type Department Care Team (Late st Contact Info) Description 05/13/2015 Orders Only [facility] CAR CLINCONV ProviderHeena MD [address] [place] [address] Social History Tobacco Use Types Packs/Day Years Used Date Smoking Tobacco: Never Assessed Sex and Gender Information Value Date Recorded Sex Assigned at Not on file 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 Gender Identity Not on file Sexual Orientation [...] on filedocumented in this encounter Care Teams Licensed Mental Health Professional Relationship Specialty Start Date End Date Tim Sanchez MD [address] [facility] [address] [place] [address] PCP - General 09/29/16 01/13/18 Lina Mcadams MD [address] [facility] [address] [place] [address] PCP - General 01/14/18 11/21/18 Deacon Eisenberg DO [address] [facility] [address] [place] [address] PCP - General 11/22/18 02/22/20 Perry Romero MD [address] [address] PCP - General Internal Medicine 02/23/20 Leonidas Carroll MD [address] [facility] [address] [place] [address] [employer] Roller Cardiology 05/23/19 Love Jones, PT Physical Therapist Physical Therapy 09/28/22 Arthur Bateman MD [address] [facility] [address] [place] [address] Referring Physician Anesthesiology 09/28/22 Karl Cha MD [address] [facility] [address] [place] [address] Referring Physician Orthopedic Surgery 11/24/23 documented as of this encounter
--- OUTSIDE RECORDS SUMMARY | 2024-10-31 14:20 | XMS_ITS | CONTINUITY OF CARE DOCUMENT ---
Author Name david rashmideandra Address Unknown Organization [facility] Address [address] [facility] [address] [place] [address] Phone [phone] Care Team Providers Care Criminal Justice Social Worker Name Role Phone Pedro QUINONES, Janay Unavailable KERRY HAIR MD Unavailable DIOGENES QUINONES, SONAM Unavailable Unavailable INSURANCE PROVIDERS Payer name Policy type / Coverage type Eclectic red constitution party ID [facility] Blue [facility] [id number] [place] MED[place] Medicare [id number]
--- OUTSIDE RECORDS SUMMARY | 2024-10-31 14:20 | XMS_ITS | Clinical Summary ---
Author Organization [facility] Address [address] [place] [address] Phone Care Team Providers Care Bus Steward Name Role Phone Provider, None Primary Care [...] age to complete this topic Insurance MEDICARE [facility] Care Teams Bus Steward Relationship Specialty Start Date End Date Provider, None [place] PCP - General 02/20/20
--- OUTSIDE RECORDS SUMMARY | 2024-10-31 14:20 | XMS_ITS | Encounter Summary ---
Author Organization [facility] Address [address] [place] [address] Care Team Providers Care Cover Creaser Name Role Phone Deacon Eisenberg DO Primary Care Provider [phone] Leonidas Carroll MD Unavailable [phone] Peryr Romero MD Primary Care Provider Love Jones PT Unavailable Unavailab Arthur Law MD Unavailable Karl Cha MD Unavailable [phone] Encounter Details Date Type Department Care Team (Late st Contact Info) Description 06/03/[address] 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 However, notified by Cata, patient arranged discharge transportaion and Left for discharge prior to Elevator Mechanic pravin greene Please call the Weekend Elevator Mechanic @ [phone] if additional assistance needed. RENCE ASSISTANT documented in this encounter Plan of Treatment Not on file documented as of this encounter Visit Diagnoses Not on filedocumented in this encounter Care Teams Cover Creaser Relationship Specialty Start Date End Date Deacon Eisenberg DO PCP - General 11/22/18 02/22/20 Perry Romero MD PCP - General Internal Medicine 02/23/20 Leonidas Carroll MD [employer] Cardiology 05/23/19 Love Jones, PT Physical Therapist Physical Therapy 09/28/22 Arthur Bateman MD [address] [address] Referring Physician Anesthesiology 09/28/22 Karl Cha MD [facility] [place] [address] Referring Physician Orthopedic Surgery 11/24/23 documented as of this encounter
--- OUTSIDE RECORDS SUMMARY | 2024-10-31 14:20 | XMS_ITS | Encounter Summary ---
Author Organization [facility] Address [address] [place] [address] Phone Care Team Providers Care Caustic Cresylate Shift Superintendent Name Role Phone Lina Mcadams MD Primary Care Provide r Deacon Eisenberg DO Primary Care Provider [phone] Leonidas Carroll MD Unavailable [phone] Perry Romero MD Primary Care Provider Love Jones PT Unavailable Unavailab Arthur Law MD Unavailable Karl Cha MD Unavailable [phone] Encounter Details Date Type Department Care Team (Late st Contact Info) Description 01/25/2018 Telephone [facility] Cardiology [address] [facility] Advanced Medicine 8th [place] [address] [place] [address] Leonidas Carroll MD [address] [facility] [address] [place], [place] [id number] Social History Tobacco Use Types Packs/Day Years Used Date Smoking Tobacco: Former Smokeless Tobacco: Never Alcohol Use Standard Drinks/Week Comments No 0 (1 standard drink = 0.6 oz pur e alcohol) Sex and Gender Information Value Date Recorded Sex Assigned at Not on file 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 Gender Identity Not on file Sexual Orientation Not on file documented as of this encounter Plan of Treatment Not on file documented as of this encounter Visit Diagnoses Not on filedocumented in this encounter Care Teams Caustic Cresylate Shift Superintendent Relationship Specialty Start Date End Date Lina Mcadams MD [address] [place] [address] PCP - General 01/14/18 11/21/18 Deacon Eisenberg DO [address] [place] [address] PCP - General 11/22/18 02/22/20 Perry Romero MD [address] [place] [address] PCP - General Internal Medicine 02/23/20 Leonidas Carroll MD [address] [place] [address] Registered Nurse Ambulatory Cardiology 05/23/19 Love Jones, PT Physical Therapist Physical Therapy 09/28/22 Arthur Bateman MD [address] [address] Referring Physician Anesthesiology 09/28/22 Karl Cha MD [address] [place] [address] Referring Physician Orthopedic Surgery 11/24/23 documented as of this encounter
--- OUTSIDE RECORDS SUMMARY | 2024-10-31 14:20 | XMS_ITS | Encounter Summary ---
Author Organization [facility] Address [address] [place] [address] Phone Care Team Providers Care Ceo Na Name Role Phone Leonidas Carroll MD Unavailable [phone] Perry Romero MD Primary Care Provider Love Jones PT Unavailable Unavailab Arthur Law MD Unavailable Karl Cha MD Unavailable [phone] Encounter Details Date Type Department Care Team (Late st Contact Info) Description 10/03/2024 Results Follow-Up [facility] Cardiology [address] [facility] Advanced Medicine 8th [place] [address] [place] [address] Leonidas Carroll MD [address] [facility] [address] [place], [place] [id number] CBC with auto differential, Basic metabolic panel [...] often do you attend chur ch or restoration services? 1 to 4 times per year 05/02/2021 Do you belong to any clubs o r organizations such as orthodoxy groups, unions, fraternal or athletic groups, or [...] on file Legal Sex Male 11:34 PM ROUNDER HAND Gender Identity Not on file Sexual Orientation [...] Chronic Care Management No change(08/10 10:32 AM ROUNDER HAND) No Brissa Muse RN Note: Problem: Chronic Pain Goals: 1. Minimize further functional decline 2. Maximize quality of life 3. Control pain Strategies: - Activity/exercise program recommendation - Conservative stepwise pain medicine strategy with multi-disciplinary approach - Recommend healthy lifestyle strategies and compensatory methods as needed documented as of this encounter Visit Diagnoses Not on filedocumented in this encounter Care Teams Ceo Na Relationship Specialty Start Date End Date Perry Romero MD PCP - General Internal Medicine 02/23/20 Leonidas Carroll MD Hardware Press Operator Cardiology 05/23/19 Love Jones, PT Physical Therapist Physical Therapy 09/28/22 Arthur Bateman MD [address] [address] Referring Physician Anesthesiology 09/28/22 Karl Cha MD [address] [place] [address] Referring Physician Orthopedic Surgery 11/24/23 documented as of this encounter
--- OUTSIDE RECORDS SUMMARY | 2024-10-31 14:20 | XMS_ITS | Clinical Summary ---
Author Organization [facility] [employer] Address [address] [place] [address] Care Team Providers Care Water Control Supervisor Name Role Phone Tim Sanchez MD Primary Care Provider Source Comments [facility] [employer],non-owned Affiliates and Associated Physician Practices is amultiple site organization consisting of ambulatory clinics and hospital sitesin [place], [place], [place] and [place]. This disclosure is being madepursuant to the Care Everywhere program and may not contain all information available regarding this patient. Last updated 18.[facility] [employer] Allergies No known active allergies Medications * [...] (11/07/2020): Added automatically from request for surgery [id number] Rosacea 09/18/2020 Achilles tendon contracture, right 07/04/2020 Overview (11/07/2020): Added automatically from request for surgery [id number] Metatarsalgia of right foot 07/04/2020 Overview (11/07/2020): Added automatically from request for surgery [id number] Sesamoiditis 07/04/2020 Overview (11/07/2020): Added automatically from request for surgery [id number] Joint pain 02/28/2020 Overview (11/07/2020): Last Assessment & Plan: Medrol dose pack Tramadol Q6 PRN (use, safety, s/e reviewed) Referral to Pain Management 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 Transferred to [facility], s/p [facility] on 11/22. LHC revealed stable LCX disease, [...] (12/14/2019): Added automatically from request for surgery [id number] Coronary artery disease invo lving tangirnaq coronary artery of tangirnaq heart without angina pectoris 03/08/2018 Diabetes mellitus [...] on file Legal Sex Male 6:26 AM PALAEONTOLOGIST Gender Identity Not on file Sexual Orientation [...] age to complete this topic Insurance MEDICARE [facility] MEDICARE [facility] Member Subscriber Plan / Payer (Ef fective for All Dates) Name:Vicky Youssef Relation to Subscriber:Self Name:Vicky Youssef Payer ID:[id number] (NAIC) Type:Commercial Address: [address] [place] [id number] SELF PAY NO INSURANCE Member Subscriber Plan / Payer (Ef fective for All Dates) Name:Vicky Youssef Member ID:Not on file Relation to Subscriber:Not on file Name:VICKY YOUSSEF Subscriber ID:Not on file (Home) Address: [address] [place] [address] Payer ID:Not on file Group ID:Not on file Type:Self Pay Address: [place], [place] MEDICARE Care Teams Water Control Supervisor Relationship Specialty Start Date End Date Tim Sanchez MD [address] [place] [address] PCP - General 10/05/17
--- OUTSIDE RECORDS SUMMARY | 2024-10-31 14:20 | XMS_ITS | Encounter Summary ---
Author Organization [facility] Address [address] [place] [address] Phone Care Team Providers Care Excellence Consultant Name Role Phone Leonidas Carroll MD Unavailable [phone] Perry Romero MD Primary Care Provider [phone] Love Jones PT Unavailable Unavailab Arthur Law MD Unavailable Karl Cha MD Unavailable [phone] Encounter Details Date Type Department Care Team (Late st Contact Info) Description 10/18/2024 Results Follow-Up [facility] [address] [facility] Advanced Medicine 8th [place] [address] [place] [address] Leonidas Carroll MD [address] [facility] [address] [place] [address] Basic metabolic panel, eGFR Social [...] you attend [facility] or jewish services? 1 to 4 times per year 05/02/2021 Do you belong to any clubs o r organizations such as quaker groups, unions, fraternal or athletic groups, or [...] on file Legal Sex Male 11:34 PM OPTOMETRY PROFESSOR Gender Identity Not on file Sexual [...] Chronic Care Management No change(08/10 10:32 AM OPTOMETRY PROFESSOR) No Brissa Muse RN Note: Problem: Chronic [...] hypertension documented in this encounter Care Teams Excellence Consultant Relationship Specialty Start Date End Date Perry Romero MD PCP - General Internal Medicine 02/23/20 Leonidas Carroll MD Manufacturer'S Service Representative Cardiology 05/23/19 Love Jones, PT Physical Therapist Physical Therapy 09/28/22 Arthur Bateman MD [address] [address] Referring Physician Anesthesiology 09/28/22 Karl Cha MD [address] [place] [address] Referring Physician Orthopedic Surgery 11/24/23 documented as of this encounter
--- OUTSIDE RECORDS SUMMARY | 2024-10-31 14:20 | XMS_ITS | Encounter Summary ---
Author Organization [facility] Address [address] [place] [address] Phone Care Team Providers Care House Visitor Name Role Phone Lina Mcadams MD Primary Care Provide r Deacon Eisenberg DO Primary Care Provider [phone] Leonidas Carroll MD Unavailable [phone] Perry Romero MD Primary Care Provider Love Jones PT Unavailable Unavailab Arthur Law MD Unavailable Karl Cha MD Unavailable [phone] Encounter Details Date Type Department Care Team (Late st Contact Info) Description 07/08/2018 Telephone 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 Gender Identity Not on file Sexual Orientation Not on file documented as of this encounter Plan of Treatment Not on file documented as of this encounter Visit Diagnoses Not on filedocumented in this encounter Care Teams House Visitor Relationship Specialty Start Date End Date Lina Mcadams MD [address] [place] [address] PCP - General 01/14/18 11/21/18 Deacon Eisenberg DO [address] [place] [address] PCP - General 11/22/18 02/22/20 Perry Romero MD [address] [address] PCP - General Internal Medicine 02/23/20 Leonidas Carroll MD [address] [place] [address] Manager Rental Cardiology 05/23/19 Love Jones, PT Physical Therapist Physical Therapy 09/28/22 Arthur Bateman MD [address] [address] Referring Physician Anesthesiology 09/28/22 Karl Cha MD [facility] [place] [address] Referring Physician Orthopedic Surgery 11/24/23 documented as of this encounter
--- OUTSIDE RECORDS SUMMARY | 2024-10-31 14:20 | XMS_ITS | Encounter Summary ---
Author Organization [facility] Address [address] [place] [address] Phone Care Team Providers Care Packing Machine Inspector Name Role Phone Tim Sanchez MD Primary Care Provider [phone] Lina Mcadams MD Primary Care Provide r Deacon Eisenberg DO Primary Care Provider [phone] Leonidas Carroll MD Unavailable [phone] Perry Romero MD Primary Care Provider [phone] Love Jones PT Unavailable Unavailab Arthur Law MD Unavailable Karl Cha MD Unavailable [phone] Encounter Details Date Type Department Care Team (Late st Contact Info) Description 09/10/2015 Orders Only [facility] CAR CLINCONV ProviderHeena MD [address] [place] [address] Social History Tobacco Use Types Packs/Day Years Used Date Smoking Tobacco: Never Assessed Sex and Gender Information Value Date Recorded Sex Assigned at Not on file Legal Sex Male 11:34 PM GLEASON OPERATOR Gender Identity Not on file Sexual [...] on filedocumented in this encounter Care Teams Packing Machine Inspector Relationship Specialty Start Date End Date Tim Sanchez MD [address] [facility] [address] [place] [address] PCP - General 09/29/16 01/13/18 Lina Mcadams MD [address] [facility] [address] [place] [address] PCP - General 01/14/18 11/21/18 Deacon Eisenberg DO [address] [facility] [address] [place] [address] PCP - General 11/22/18 02/22/20 Perry Romero MD [address] [address] PCP - General Internal Medicine 02/23/20 Leonidas Carroll MD [address] [facility] [address] [place] [address] [facility] Cardiology 05/23/19 Love Jones, PT Physical Therapist Physical Therapy 09/28/22 Arthur Bateman MD [address] [facility] [address] [place] [address] Referring Physician Anesthesiology 09/28/22 Karl Cha MD [address] [facility] [address] [place] [address] Referring Physician Orthopedic Surgery 11/24/23 documented as of this encounter
--- OUTSIDE RECORDS SUMMARY | 2024-10-31 14:20 | XMS_ITS | Encounter Summary ---
Author Organization [facility] Address [address] [place] [address] Phone Care Team Providers Care Waste Water Treatment Plant Operator Name Role Phone Tim Sanchez MD Primary Care Provider [phone] Lina Mcadams MD Primary Care Provide r Deacon Eisenberg DO Primary Care Provider [phone] Leonidas Carroll MD Unavailable [phone] Perry Romero MD Primary Care Provider [phone] Love Jones PT Unavailable Unavailab Arthur Law MD Unavailable Karl Cha MD Unavailable [phone] Encounter Details Date Type Department Care Team (Late st Contact Info) Description 08/01/2017 Orders Only [facility] CAR CLINCONV ProviderHeena MD [address] [place] [address] Social History Tobacco Use Types Packs/Day Years Used Date Smoking Tobacco: Never Assessed Sex and Gender Information Value Date Recorded Sex Assigned at Not on file 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 Gender Identity Not on file Sexual Orientation [...] on filedocumented in this encounter Care Teams Waste Water Treatment Plant Operator Relationship Specialty Start Date End Date Tim Sanchez MD [address] [facility] [address] [place] [address] PCP - General 09/29/16 01/13/18 Lina Mcadams MD [address] [facility] [address] [place] [address] PCP - General 01/14/18 11/21/18 Deacon Eisenberg DO [address] [facility] [address] [place] [address] PCP - General 11/22/18 02/22/20 Perry Romero MD [address] [address] PCP - General Internal Medicine 02/23/20 Leonidas Carroll MD [address] [facility] [address] [place] [address] End User Consultant Cardiology 05/23/19 Love Jones, PT Physical Therapist Physical Therapy 09/28/22 Arthur Bateman MD [address] [facility] [address] [place] [address] Referring Physician Anesthesiology 09/28/22 Karl Cha MD [address] [facility] [address] [place] [address] Referring Physician Orthopedic Surgery 11/24/23 documented as of this encounter
--- OUTSIDE RECORDS SUMMARY | 2024-10-31 14:20 | XMS_ITS | Encounter Summary ---
Author Organization [facility] Address [address] [place] [address] Phone Care Team Providers Care Packaging Machine Supplies Distributor Name Role Phone Leonidas Carroll MD Unavailable [phone] Perry Romero MD Primary Care Provider Love Jones PT Unavailable Unavailab Arthur Law MD Unavailable Karl Cha MD Unavailable [phone] Encounter Details Date Type Department Care Team (Late st Contact Info) Description 10/03/2024 Results Follow-Up [facility] Cardiology [address] [facility] Advanced Medicine 8th [place] [address] [place] [address] Leonidas Carroll MD [address] [facility] [address] [place] [address] Pro B-type natriuretic peptide Social [...] week 05/02/2021 How often do you attend [facility] or orthodox services? 1 to 4 times per year 05/02/2021 Do you belong to any clubs o r organizations such as restorationism groups, unions, fraternal or athletic groups, or [...] on file Legal Sex Male 11:34 PM DISABILITY INSURANCE HEARING OFFICER Gender Identity Not on file Sexual Orientation Not on file documented as of this encounter Miscellaneous Notes * Telephone Encounter - April Felix - 10/04/2024 2:37 PM CDT Glen Patient returning missed call. He can be reached at [phone]. * Result Encounter Note - Leonidas Carroll MD - 10/03/2024 4:31 PM CDT Tell patient normal results. documented in this encounter Plan of Treatment Not on file documented as of this encounter Goals Goal Patient Goal Type Associated Problems Recent Progress Patient-Stated? Author CCM Chronic Pain Care Plan Chronic Care Management No change(08/10 10:32 AM DISABILITY INSURANCE HEARING OFFICER) No Brissa Muse RN Note: Problem: Chronic Pain Goals: 1. Minimize further functional decline 2. Maximize quality of life 3. Control pain Strategies: - Activity/exercise program recommendation - Conservative stepwise pain medicine strategy with multi-disciplinary approach - Recommend healthy lifestyle strategies and compensatory methods as needed documented as of this encounter Visit Diagnoses Not on filedocumented in this encounter Care Teams Packaging Machine Supplies Distributor Relationship Specialty Start Date End Date Perry Romero MD PCP - General Internal Medicine 02/23/20 Leonidas Carroll MD Social Services Cardiology 05/23/19 Love Jones PT Physical Therapist Physical Therapy 09/28/22 Arthur Bateman MD [address] [address] Referring Physician Anesthesiology 09/28/22 Karl Cha MD [address] [place] [address] Referring Physician Orthopedic Surgery 11/24/23 documented as of this encounter
--- OUTSIDE RECORDS SUMMARY | 2024-10-31 14:20 | XMS_ITS | Encounter Summary ---
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 PASTOR Gender Identity Not on file Sexual Orientation [...] on filedocumented in this encounter Care Teams Collar Fuser Relationship Specialty Start Date End Date Deacon Eisenberg PCP - General 11/22/18 02/22/20 Perry Romero MD PCP - General Internal Medicine 02/23/20 Leonidas Carroll MD Refrigeration Manager Cardiology 05/23/19 Love Jones, PT Physical Therapist Physical Therapy 09/28/22 Arthur Bateman MD [address] [address] Referring Physician Anesthesiology 09/28/22 Karl Cha MD [address] [place] [address] Referring Physician Orthopedic Surgery 11/24/23 documented as of this encounter
--- OUTSIDE RECORDS SUMMARY | 2024-10-31 14:20 | XMS_ITS | Clinical Summary ---
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 90 tablet 3 Active clopidogreL [...] 06/17/2023 Assessment & Plan (06/17/2023 10:00 AM HOME HEALTH CARE PHYSICIAN): Continue flexeril 10mg Q8 PRN Trial gabapentin 100mg Q8 TID Topical lidocaine patches 4%, on for 12 hours/off for 12 hours Will send Mcgrath 5/325 PRN #28, discussed that this will [...] 07/21/2021 Assessment & Plan (07/21/2021 9:52 AM HOME HEALTH CARE PHYSICIAN): Baseline creatine 1.3-1.5 Creatine Within patient;s baseline at 1.3 CTM Received IV fluids 500 ml on admission for creatine 1.59 Statin intolerance 07/18/2021 Assessment & Plan (07/18/2021 3:39 PM HOME HEALTH CARE PHYSICIAN): History of statin intolerance -Continue ezetimibe and fenofibrate DM2 (diabetes mellitus, type 2) 07/18/2021 Assessment & Plan (07/19/2021 7:58 AM HOME HEALTH CARE PHYSICIAN): Follow glucose and rx with insulin Metformin held for now pending cath. Assessment & Plan (07/18/2021 3:41 PM HOME HEALTH CARE PHYSICIAN): -Hemoglobin A1c 6.1 -Hold home metformin while inpatient -SSI while admitted -Carb consistent diet -Accuchecks BPH (benign prostatic hyperplasia) 07/18/2021 Assessment & Plan (07/18/2021 3:59 PM HOME HEALTH CARE PHYSICIAN): BPH s/p TURP -Continue home finasteride and tamsulosin HLD (hyperlipidemia) 07/18/2021 Assessment & Plan (10/11/2024 11:06 AM CDT): Recommend statin therapy. Assessment & Plan (09/15/2024 10:52 AM CDT): Stable continue Zetia Assessment & Plan (08/31/2024 1:57 PM CDT): Impression: Chronic stable. Plan: Continue Zetia, fenofibrate Assessment & Plan (07/21/2021 8:10 AM HOME HEALTH CARE PHYSICIAN): LDL ok while on non-statins due to intolerance. Continue present Rx for now Assessment & Plan (07/20/2021 8:10 AM HOME HEALTH CARE PHYSICIAN): LDL ok while on non-statins due to intolerance. Continue present Rx for now Assessment & Plan (07/19/2021 7:57 AM HOME HEALTH CARE PHYSICIAN): LDL ok while on non-statins due to intolerance. Continue present Rx for now Assessment & Plan (07/18/2021 3:52 PM HOME HEALTH CARE PHYSICIAN): Lipid panel WNL -Continue ezetimibe and fenofibrate [...] 07/18/19 Assessment & Plan (07/18/2021 4:00 PM HOME HEALTH CARE PHYSICIAN): PVOD s/p bilateral iliac stents Unstable angina 07/18/2021 Overview (07/18/2021): Added automatically from request for surgery [id number] Assessment & Plan (07/21/2021 8:10 AM HOME HEALTH CARE PHYSICIAN): CP concerning for USA. troponins normal, ruled out for NE. I have recommended coronary angiography and this is scheduled for today. Pt has PAD Continue IV heparin, follow labs and adjust. Continue aspirin, plavix, beta carrie, Patient asymptomatic. Cardiac catheterization scheduled for tomorrow. NPO after midnight. Assessment & Plan (07/20/2021 8:10 AM HOME HEALTH CARE PHYSICIAN): CP concerning for USA. troponins normal, ruled out for NE. I have recommended coronary angiography and this is scheduled for Wednesday. Pt has PAD and radial approach may be preferred. Continue IV heparin, follow labs and adjust. Continue aspirin, plavix, beta carrie, Patient asymptomatic. Cardiac catheterization scheduled for tomorrow. NPO after midnight. Assessment & Plan (07/19/2021 7:56 AM HOME HEALTH CARE PHYSICIAN): CP concerning for USA. troponins normal, ruled out for NE. Brief left sided chest pain since admission. [...] (03/06/2021): Added automatically from request for surgery [id number] Presbyopia 02/03/2021 Assessment & Plan (08/12/2023 5:06 PM HOME HEALTH CARE PHYSICIAN): -Noting increased difficulty with near vision while reading -Recommended trialing higher power reading glasses Assessment & Plan (02/03/2021 2:44 PM CDT): Correctable to 20/25 right eye (OD) and left eye (OS). Update specs as desired. Rosacea 09/18/2020 Metatarsalgia of right foot 07/04/2020 Overview (07/04/2020): Added automatically from request for surgery [id number] Sesamoiditis 07/04/2020 Overview (07/04/2020): Added automatically from request for surgery [id number] Painful orthopaedic hardware 07/04/2020 Overview (07/04/2020): Added automatically from request for surgery [id number] Achilles tendon contracture, right 07/04/2020 Overview (07/04/2020): Added automatically from request for surgery [id number] Pseudarthrosis after fusion or arthrodesis 02/28 Overview (02/28/2019): Added automatically from request for surgery [id number] Diabetes mellitus type 2 without retinopathy 05/2019 Assessment & Plan (02/09/2023 3:33 PM CDT): Continue strict BS control, annual dilated eye exams. Assessment & Plan (06/17/2022 4:09 PM HOME HEALTH CARE PHYSICIAN): Continue strict BS control, annual dilated eye [...] months Assessment & Plan (08/12/2023 5:05 PM HOME HEALTH CARE PHYSICIAN): -Follow up exam for AMD; last visit [...] 6months Assessment & Plan (06/17/2022 9:41 AM HOME HEALTH CARE PHYSICIAN): -No signs of exudation. -given the large [...] months Assessment & Plan (08/13/2021 3:12 PM HOME HEALTH CARE PHYSICIAN): No signs of exudation. Per AREDS study, [...] follow. Assessment & Plan (06/17/2022 4:09 PM HOME HEALTH CARE PHYSICIAN): NVS, follow. Assessment & Plan (02/23/2019 10:32 [...] (06/08/2018): Added automatically from request for surgery [id number] Palpitations 04/15/2018 CAD (coronary artery disease) 03/08/2018 Assessment & Plan (09/04/2024 11:21 AM CDT): stable Assessment & Plan (07/18/2021 3:42 PM HOME HEALTH CARE PHYSICIAN): CAD s/p CABG in 2010 (KAUR-LAD which is known to be an atretic graft; vein graft-marginal; and vein graft-2nd marginal branch; RCA occluded, with collateral revascularization) -Last [facility] in 11/2018 showed patent KAUR graft to [...] Diabetes mellitus type II, non insulin dependent ([facility]) 01/15/2018 Assessment & Plan (09/04/2024 11:21 AM CDT): Stable and doing well Assessment & Plan (07/21/2021 9:50 AM HOME HEALTH CARE PHYSICIAN): Hemoglobin a1c 6.1 - diet controlled for now Metformin on hold for [facility] Continue to monitor. Assessment & Plan (07/20/2021 8:11 AM HOME HEALTH CARE PHYSICIAN): Blood sugar stable. Follow-up blood sugar. Treat with insulin as appropriate Metformin being held. Assessment & Plan (02/28/2020 3:23 PM CDT): a1c at target, recommend annual eye exam. Feet are without lesions. 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 Continue beta-carrie. Assessment & Plan (07/20/2021 8:10 AM HOME HEALTH CARE PHYSICIAN): Pacer function stable Continue present Rx. Continue beta-carrie. 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 Maty Weber Assessment & Plan (02/28/2020 3:23 PM CDT): No palpitations, syncope Depressive disorder 03/15/2015 Panic disorder without agoraphobia 03/15/2015 Resolved Problems Problem Noted Date Diagnosed Date Resolved Date Pain in right foot 04/24/2022 4 LINUS (acute kidney injury) 07/18/2021 Assessment & Plan (07/21/2021 8:12 AM HOME HEALTH CARE PHYSICIAN): Pt with CKDstage 3, CrCl 50 ml/min. Creatinine improved. Cath today Assessment & Plan (07/20/2021 8:11 AM HOME HEALTH CARE PHYSICIAN): Pt with CKDstage 3, CrCl 50 ml/min. Repeat BMP today. IV hydration Mikal night before cath recommended. Assessment & Plan (07/19/2021 7:59 AM HOME HEALTH CARE PHYSICIAN): Pt with CKDstage 3, CrCl 50 ml/min. Stable. IV hydration Mikal night before cath recommended. Assessment & Plan (07/18/2021 3:44 PM HOME HEALTH CARE PHYSICIAN): LINUS (Cr 1.59 on admission) on CKD (baseline Cr 1.0-1.2) -S/p 500 ml LR bolus in ED -Follow BMPs Statin intolerance 02/10/2021 4 Syncope and collapse 12/30/2020 024 Encounter for screening colonoscopy 10/14/2020 06/17/2023 Overview (10/14/2020): Added automatically from request for surgery [id number] Joint pain 02/28/2020 06/17/2023 Assessment & Plan (04/29/2020 10:45 AM HOME HEALTH CARE PHYSICIAN): Medrol dose pack Tramadol Q6 PRN (use, safety, s/e reviewed) Referral to Pain Management Assessment & Plan (02/28/2020 3:25 PM CDT): xrays noted, check rheum panel (? H/o pos JENNIFER) Confusion 01/04/2019 06/17/2023 Chest pain 01/15/2018 06/17/2023 Assessment & Plan (07/21/2021 9:47 AM HOME HEALTH CARE PHYSICIAN): CAD s/p CABG (2010), admitted with chest [...] for chest pain -Telemetry monitoring NPO for [facility] Assessment & Plan (01/16/2018 10:39 AM CDT): [...] Description 10/25/2024 1:00 PM CDT Office Visit [facility] Orthopaedic Surgery [facility] Medicine 6th [place] [address] [place] [id number] Sudhir Martinez MD Greater trochanteric pain syndrome of right lower extremity (Primary Dx); Chronic right hip pain; Chronic knee pain after total replacement of left knee joint 10/23/[address] [facility] Cardiology [address] [facility] Medicine 8th [place] [address] [place] [address] Rigo Carroll MD BP updates 10/18/2024 10:15 AM CDT Lab [facility] Outpatient Lab at [address] [address] Diabetes mellitus type 2 without retinopathy (HCC) (Primary Dx); High risk medications (not anticoagulants) long-term use 10/18/2024 10:10 AM CDT - 10/18/2024 11:59 PM CDT Hospital Encounter [address] [address] High risk medications (not anticoagulants) long-term use Discharge Disposition: Discharge to home or self care 10/18/2024 Results Follow-Up [facility] Cardiology [facility] 8th [place] [address] [place] [address] Rigo Carroll MD Basic metabolic panel, eGFR 10/16/2024 10:45 AM CDT - 10/16/2024 12:25 PM CDT Surgery [facility] [address] [place] [phone] Clifford Sandy MD CORONARY ARTERY AND GRAFT ANGIOGRAPHY [id number] 10/16/2024 8:28 AM CDT - 10/16/2024 5:00 PM CDT Hospital [facility] [address] [place] [phone] Clifford Sandy MD Coronary artery disease involving ione heart without angina pectoris, unspecified vessel or lesion type Discharge Disposition: Discharge to home or self care 10/16/2024 Results Follow-Up [facility] Cardiology [address] [place] [address] 8th [place] [address] [place] [address] Rigo Carroll MD Cardiac Catheterization 10/11/2024 8:45 AM CDT Office Visit [facility] Vascular at [address] [place] [phone] Ivet Montana MD Peripheral vascular disease (Primary Dx); Primary hypertension; Mixed hyperlipidemia 10/11/2024 Orders Only [facility] [address] [place] [address] Scanning, Provider 10/11/2024 Orders Only [facility] Vascular at [address] [place] [phone] Ivet Montana MD Atherosclerosis of ione artery of both lower extremities with intermittent claudication (Primary Dx); Other specified symptoms and signs involving the circulatory and respiratory systems 10/05/2024 10:00 AM CDT Office Visit [facility] Ophthalmology [address] [facility] 1st [place] [address] Sherri Jean-Baptiste MD 10/05/[address] [facility] Cardiology [address] [place] [address] [place] [address] Rigo Carroll MD follow up of previous orders 10/04/2024 1:17 PM CDT - 10/04/2024 11:59 PM CDT Hospital Encounter [facility] [address] [place] [address] Atherosclerosis of ione artery of both lower extremities with intermittent claudication Discharge Disposition: Discharge to home or self care 10/03/2024 11:50 AM CDT - 10/03/2024 11:59 PM CDT Hospital Encounter [facility] [address] [place] [address] Coronary artery disease involving ione coronary artery of ione heart without angina pectoris Discharge Disposition: Discharge to home or self care 10/03/2024 11:[address] [facility] Endocrinology Metabolism and Lipid [address] [place] [address] Coronary artery disease involving ione coronary artery of ione heart without angina pectoris 10/03/2024 10:30 AM CDT Office Visit [facility] Cardiology [address] [place] [address] Rigo Carroll MD Coronary artery disease involving ione coronary artery of ione heart without angina pectoris (Primary Dx); Primary hypertension; Pure hypercholesterolemia; Peripheral vascular disease; Presence of cardiac pacemaker 10/03/2024 9:15 AM CDT - 10/03/2024 11:59 PM CDT Hospital Encounter [facility] Cardiac Diagnostic Lab [address] [address] Cardiomyopathy, ischemic Discharge Disposition: Discharge to home or self care 10/03/2024 Results Follow-Up [facility] Cardiology [address] [place] [address] [place] [address] Rigo Carroll MD Pro B-type natriuretic peptide 10/03/2024 Results Follow-Up [facility] Cardiology [address] [facility] 8th [place] [address] [place] [address] Rigo Carroll MD CBC with auto differential, Basic metabolic panel 10/03/[address] [facility] Cardiology [address] [facility] 8th [place] [address] [place] [address] Rigo Carroll MD Cath orders 09/13/2024 8:30 AM CDT Office Visit [facility] Vascular at [address] [place] [address] Ivet Montana MD Peripheral vascular disease (Primary Dx); Mixed hyperlipidemia; Primary hypertension 09/13/2024 Orders Only [facility] Vascular at [address] [place] [address] Ivet Montana MD Atherosclerosis of ione artery of both lower extremities with intermittent claudication (Primary Dx) 09/05/2024 10:00 AM CDT Ancillary Procedure [facility] Vascular and Vein Surgery at [address] [place] [address] Atherosclerosis of ione artery of both lower extremities with intermittent claudication 09/05/2024 10:00 AM CDT Ancillary Procedure [facility] Vascular and Vein Surgery at [address] [place] [address] Atherosclerosis of ione artery of both lower extremities with intermittent claudication 09/05/2024 9:00 AM CDT Ancillary Procedure [facility] Vascular and Vein Surgery at [address] [place] [address] Atherosclerosis of ione artery of both lower extremities with intermittent claudication; Other specified symptoms and signs involving the circulatory and respiratory systems 09/04/2024 10:30 AM CDT Office Visit [facility] [address] [facility] [address] [place] [address] Perry Romero MD Diabetes mellitus type II, non insulin dependent (HCC) (Primary Dx); Sick sinus syndrome (CMS/HCC) (HCC); Primary hypertension; Coronary artery disease involving ione heart without angina pectoris, unspecified vessel or lesion type 08/30/2024 9:15 AM CDT Office Visit [facility] Vascular at [address] [place] [address] Rosana Fink NP Peripheral vascular disease (Primary Dx); Mixed hyperlipidemia; Primary hypertension 08/30/2024 Orders Only [facility] Vascular at [address] [place] [address] Ivet Montana MD Atherosclerosis of ione artery of both lower extremities with intermittent claudication (Primary Dx); Other specified symptoms and signs involving the circulatory and respiratory systems 08/10/2024 10:15 AM HOME HEALTH CARE PHYSICIAN - 08/10/2024 11:59 PM HOME HEALTH CARE PHYSICIAN Hospital Encounter [facility] Pain Center at the [facility] Medicine [facility] [address] [place] [address] Arthur Bateman MD Greater trochanteric bursitis of both hips (Primary Dx); Tensor fascia shorty syndrome; Spondylosis of lumbar region without myelopathy or radiculopathy Discharge Disposition: Discharge to home or self care 08/03/[address] [facility] Orthopaedic Surgery [address] [facility] Medical Office Building [address] [place] [address] Zbigniew Noel MD 08/03/2024 Telephone [facility] [address] [place] [address] [address] [address] Perry Romero MD Referral to [...] 06/13/2003 triple bypass CARDIAC CATHETERIZATION 11/22/2018 positive NE FOOT SURGERY 06/28/2018 Right right 1st MTP [...] N/A Procedure: CORONARY ARTERY AND GRAFT ANGIOGRAPHY [id number]; Surgeon: Clifford Sandy MD; Location: [facility] CARDIAC LAW OFFICE ASSISTANT; Service: Cardiovascular; Laterality: N/A; eval ffor ischemia, hx icm CABG 2002 [facility], most recent cath at [facility] [address] Sandy Pt has pacemaker-Dr. Weber DM-on Metformin, will instruct pt to hold night prior and day of Labs done 10/03/2024, in chart Pt will be Medical devices from this surgery are in the Medical Devices section. CARDIAC CATHETERIZATION 10/16/2024 N/A Procedure: Coronary Flow Velocity (CFR) / Instantaneous Flow Velocity (IFR), 1st Vessel; Surgeon: Clifford Sandy MD; Location: [facility] CARDIAC LAW OFFICE ASSISTANT; Service: Cardiovascular; Laterality: N/A; Medical devices from this surgery are in the Medical Devices section. CARDIAC CATHETERIZATION 10/16/2024 N/A Procedure: IVUS/OCT CORS OR GRAFTS, FIRST VESSEL (+) [id number]; Surgeon: Clifford Sandy MD; Location: [facility] CARDIAC LAW OFFICE ASSISTANT; Service: Cardiovascular; Laterality: N/A; Medical devices from [...] How often do you attend chur or yazidism services? 1 to 4 times [...] on file Legal Sex Male 11:34 PM HOME HEALTH CARE PHYSICIAN Gender Identity Not on file Sexual Orientation [...] Chronic Care Management No change(08/10 10:32 AM HOME HEALTH CARE PHYSICIAN) No Brissa Muse, RN Note: Problem: Chronic Pain Goals: 1. Minimize further functional decline 2. Maximize quality of life 3. Control pain Strategies: - Activity/exercise program recommendation - Conservative stepwise pain medicine strategy with multi-disciplinary approach - Recommend healthy lifestyle strategies and compensatory methods as needed Medical Devices Implanted Type Area Steam Drier Tender Device Identifier Shelf Expiration Date Model / Serial / Lot Terumo [employer] Lewis Angio-Seal Vip 6fr Closere Device [id number] - [id number] - [id number] Implanted:Qty: 1 on 11/25/2022 by Eliecer Mixon MD at [facility] Collagen Ter[employer]o [employer] Lewis 06/13/2023 [id number] / [id number] / [id number] Terumo [employer] Lewis Angio-Seal Vip 6fr Closere Device [id number] - [id number] - [id number] Implanted:Qty: 1 on 10/16/2024 by Clifford Sandy MD at [facility] Collagen Left: Common Femoral Artery Terumo [employer] Lewis 05/01/2025 [id number] / [id number] / [id number] Lead (Ra)-05/08/2015 Implanted:05/08/2015 by Maty Wbeer MD (Quantity not on file) Lead Heart Biotronik 350 974 SETROX S 53 / [id number] / Lead (Rv)-05/08/2015 Implanted:05/08/2015 by Maty Weber MD (Quantity not on file) Lead Heart Biotronik 350 975 SETROX S 60 / [id number] / Pacemaker-05/08/2015 Implanted:05/08/2015 by Maty Weber MD (Quantity not on file) Pacemaker Left: Chest Biotronik [id number] ELUNA Shelby AGUILA / [id number] / Synthes 201.814 2mm 3.5mm 14mm Self Tap Cruciform Cortex Screw Bone Stainless - S0 - [id number] Implanted:Qty: 1 on 08/06/2020 by Zoey Sexton MD at [facility] Screw Synthes I 201.814 / 0 / Medtronic Card Vas Surgery 4.0 X 26mm Al Licking Rx Coronary Stent [id number] - [id number] - [id number] Implanted:Qty: 1 on 11/25/2022 by Clifford Sandy MD at [facility] Stent Medtronic Card Vasc Surgery 06/26/2025 [id number] / [id number] / [id number] Orthohelix [id number] Maxtorque 4mm 32.5mm Cannulated Self Drill Foot Ankle Long Thread - [id number] Implanted:Qty: 1 on 06/28/2018 at [facility] Right: Foot Orthohelix MSD-010- 40-325L / / Orthohelix Truck Driver-002-Pmx Ortholink 3 Hole [place] Foot Ankle Standard Plate Bone Nonsterile Latex Free - [id number] Implanted:Qty: 1 on 06/28/2018 at [facility] Right: Foot Orthohelix POST CLOSER-002- PMX / / Orthohelix [id number] Maxlock Extreme 4mm 16mm Nonlock Foot Ankle Screw Bone Nonsterile - [id number] Implanted:Qty: 1 on 06/28/2018 at [facility] Right: Foot Orthohelix POST CLOSER-011- 4016 / / Orthohelix [id number] Maxlock Extreme 4mm 18mm Nonlock Foot Ankle Screw Bone Nonsterile Latex Free - [id number] Implanted:Qty: 1 on 06/28/2018 at [facility] Right: Foot Orthohelix POST CLOSER-011- 40-18 / / Orthohelix [id number] Maxlock Extreme 4mm 14mm Nonlock Foot Ankle Screw Bone Nonsterile Latex Free - [id number] Implanted:Qty: 1 on 06/28/2018 at [facility] Right: Foot Orthohelix POST CLOSER-011- 4014 / / Daig Lewis[employer] [id number] Angio-Seal Evolution 6fr .035in Guidewire Bypass Tube Suture - [id number] Implanted:Qty: 1 on 11/22/2018 by Sarah Vasquez MD at [facility] Daig Lewis[employer] 08/12/2019 [id number] / / [id number] Medtronic Sofamor Danek [id number] Infuse 14mm 23mm Absorbable Sponge Sterile Water Syringe Needle - [id number] Implanted:Qty: 1 on 06/02/2019 by Zoey Sexton MD at [facility] Right: Foot Medtronic Inc 01/11/2021 [id number] / / [id number] Medline Industries Inc [id number] Plate Bone Medline Unite 0 D Medium Metatarsophalangeal Right Fusion Nonsterile - [id number] Implanted:Qty: 1 on 06/02/2019 by Zoey Sexton MD at [facility] Right: Foot [employer] Inc [id number] / / [employer] Inc [id number] Pin Fixation Medline Unite L10mm Od1.1mm - [id number] Implanted:Qty: 1 on 06/02/2019 by Zoey Sexton MD at [facility] Right: Foot [employer] Inc [id number] / / [employer] Inc [id number] Screw Bone Medline Unite L34mm Od4.5mm Head Nonsterile - [id number] Implanted:Qty: 1 on 06/02/2019 by Zoey Sexton MD at [facility] Right: Foot [employer] Inc [id number] / / [employer] Inc [id number] Screw Bone Medline Unite L16mm Od3.5mm Foot Ankle Nonlock - [id number] Implanted:Qty: 1 on 06/02/2019 by [facility]xton [facility] [place] [facility] Right: Foot [employer] [id number] / / [employer] [id number] Screw Bone Medline Unite L18mm Od3.5mm Foot Ankle Nonlock - [id number] Implanted:Qty: 1 on 06/02/2019 by Zoey Sexton MD at [facility] Right: Foot [employer] [id number] / / [employer] [id number] Screw Bone Medline Unite L20mm Od3.5mm Foot Ankle Nonlock - [id number] Implanted:Qty: 2 on 06/02/2019 by Zoey Sexton MD at [facility] Right: Foot [employer] [id number] / / [employer] Triathlon Cruciate Retain Bead Knee Left 5 Component Femoral Pa 5517-F-501 - [id number] Implanted:Qty: 1 on 04/24/2024 by Zbigniew Noel MD at [facility] [employer] [id number] 02/27/2029 5517-F-5 01 / / [id number] Triathlon Knee 6 Baseplate Tibial Tritanium 5536-B-600 - [id number] Implanted:Qty: 1 on 04/24/2024 by Zbigniew Noel MD at [facility] [employer] [id number] 11/08/2028 5536-B-6 00 / / [id number] [employer] Insert Tibial Triathlon 6 H11mm Knee Bearing Condylar Stabilize Sterile 4261-A-675-E - [id number] Implanted:Qty: 1 on 04/24/2024 by Zbigniew Noel MD at [facility] [employer] [id number] 12/19/2028 5531-G-6 11-E / / [id number] Explanted Type Area Steam Drier Tender Device Identifier Shelf Expiration Date Model / Serial / Lot [employer] [id number] Anne .45in 9in 1 [employer] Fixation - S0 - [id number] Explanted:Qty: 1 on 08/06/2020 by Zoey Sexton MD at [facility] Wire [employer] [id number] S / 0 / Description:Provisional fixa tion [employer] [id number] Anne .062in 9in 1 [employer] Wire Fixation - [id number] Explanted:Qty: 1 on 06/28/2018 at [facility] Right: Foot [employer] [id number] / / Description:Provisional fixa tion [employer] [id number] Anne .062in 9in 1 [employer] Sm[employer] Wire Fixation - [id number] Explanted:Qty: 1 on 06/28/2018 at [facility] Right: Foot [employer] [id number] / / Description:Provisional fixa tion [employer] 0217-7942 Anne .062in 9in 1 [employer] Sm[employer] Wire Fixation - [id number] Explanted:Qty: 1 on 06/28/2018 at [facility] Right: Philippe [employer] [id number] / / Description:Provisional fixa tion Screw Explanted:Qty: 5 on 08/06/2020 by Zoey Sexton MD at [facility] Other / 0 / Plate Explanted:Qty: 1 on 08/06/2020 by Drew Espinosa MD at [facility] Other / 0 / Procedures Procedure Name Priority Date/Time Associated Diagnosis Comments EGFR Routine 10/18/2024 10:10 AM CDT High risk medications (not anticoagulants) long-term use BASIC METABOLIC PANEL Routine 10/18/2024 10:10 AM CDT High risk medications (not anticoagulants) long-term use POCT GLUCOSE DEVICE Routine 10/16/2024 3 :20 PM CDT CORONARY OCT, 1ST VESSEL Routine 10/16/2024 2:35 PM CDT Coronary artery disease involving ione heart without angina pectoris, unspecified vessel or lesion type CORONARY FLOW VELOCITY (CFR) / INSTATANEOUS FLOW VELOCITY (IFR), 1ST VESSEL Routine 10/16/2024 2:35 PM CDT Coronary artery disease involving ione heart without angina pectoris, unspecified vessel or lesion type RIGHT CORONARY ANGIOGRAPHY Routine 10/16/2024 2:35 PM CDT Coronary artery disease involving ione heart without angina pectoris, unspecified vessel or [...] Routine) 10/04/2024 2:41 PM CDT Atherosclerosis of ione artery of both lower extremities with intermittent claudication PRO B-TYPE NATRIURETIC PEPTIDE Routine 10/03/2024 11:50 AM CDT Coronary artery disease involving ione coronary artery of ione heart without angina pectoris BASIC METABOLIC PANEL Routine 10/03/2024 11:50 AM CDT Coronary artery disease involving ione coronary artery of ione heart without angina pectoris CBC WITH AUTO DIFFERENTIAL Routine 10/03/2024 11:50 AM CDT Coronary artery disease involving ione coronary artery of ione heart without angina pectoris TRANSTHORACIC ECHO (TTE) COMPLETE W DOPPLER/CF W CONTRAST Routine 10/03/2024 10:29 AM CDT Cardiomyopathy, ischemic VL US ARTERIAL DUPLEX LOWER EXTREMITY BILATERAL Schedule Routine, Read Routine (OP Routine) 09/05/2024 10:30 AM CDT Atherosclerosis of ione artery of both lower extremities with intermittent claudication US SANTIAGO Schedule Routine, Read Routine (OP Routine) 09/05/2024 10:30 AM CDT Atherosclerosis of ione artery of both lower extremities with intermittent claudication US DUPLEX SCAN AORTA, IVC ILIAC COMPLETE Schedule Routine, Read Routine (OP Routine) 09/05/2024 10:30 AM CDT Atherosclerosis of ione artery of both lower extremities with intermittent claudication Other specified symptoms and signs involving the circulatory and respiratory systems POCT HEMOGLOBIN A1C Routine 09/04/2024 10:38 AM CDT Diabetes mellitus type II, non insulin dependent (HCC) PAIN MGMT IMAGING SHOULDER, HIP, KNEE JOINT/BURSA INJ BILATERAL Schedule Routine, Read Routine (OP Routine) 08/10/2024 11:30 AM HOME HEALTH CARE PHYSICIAN Greater trochanteric bursitis of both hips CTA ABDOMINAL AORTA AND BILATERAL ILIOFEMORAL RUNOFF Schedule Routine, Read Routine (OP Routine) 09/27/2023 11:27 AM CDT Claudication in peripheral vascular disease POCT LIPID PANEL Routine 09/21/2023 9:27 AM CDT Mixed hyperlipidemia PSA SCREEN Routine 06/17/2023 10:13 AM HOME HEALTH CARE PHYSICIAN Prostate cancer screening COLONOSCOPY 01/01/2021 12:16 PM [...] BLOOD ORDERABLES F inal Result [facility] [address] Department [place] [address] * Basic metabolic panel (10/18/2024 10:10 AM CDT) Sodium 137 135 - 145 mmol/L Potassium, pl 4.3 3.3 - 4.9 mmol/L [facility] Chloride 101 97 - 110 mmol/L CERN[facility] CH CO2 22 22 - 32 mmol/L [facility] CH Anion gap 14 2 - 15 mmol/L [facility] BUN 18 6 - 25 mg/dL [facility] Creatinine 1.14 0.80 - 1.30 mg/dL CERNER Glucose 130 70 - 199 mg/dL [facility] Comment: Interpretive Data Fasting glucose >/= [...] 2022. Calcium 10.0 8.5 - 10.3 mg/dL [facility] Blood 10/18/2024 10:1 0 AM CDT 10/18/2024 3:54 PM CDT Rigo Carroll MD LAB BLOOD ORDERABLES F inal Result YVROSE [address] Department [place] [address] * POCT glucose (10/16/2024 3:20 PM CDT) Glucose, POC 95 70 - 199 mg/dL Blood 10/16/2024 3:20 PM CDT 10/16/2024 3:20 PM CDT us Clifford Sandy MD LAB POCT ORDERABLES - DEVICE Final Result [facility] Department [place] [address] * RIGHT CORONARY ANGIOGRAPHY, CORONARY FLOW VELOCITY [...] and OM2 Known atretic KAUR to LAD INTERNAL MEDICINE NURSE PRACTITIONER of the mid RCA THERAPEUTIC RECOMMENDATIONS: Left [...] result were not included. Cardiovascular Procedure Center [facility] [address] [place] [address] CORONARY AND GRAFT REPORT Patient: Vicky Youssef : 1955 MR number: [id number] Date of Service: 10/16/2024 Bank Messenger: Clifford Sandy MD Fellow: Salvador Arita MD and Madalyn Reynaga MD Referring physician: Rigo Carroll MD INDICATION: worsening LV function, dyspnea PATIENT CLINICAL PROFILE: Vicky Youssef is a 69 y.o. male with a history of CABG s/p KAUR-LAD (atretic), SVG-Ramus/high OM, SVG-OM2, PCI to LM-LAD with a 4.0 mm Al Licking SHEMAR, mild LV dysfunction, who is presenting with worsening LV dysfunction and some dyspnea on exertion. PROCEDURE: The risks, benefits and alternatives of the procedures and moderate sedation were explained to the patient and informed consent was obtained. The patient was brought to the geophysical laboratory director and placed on the table. Bilateral groins were prepped and draped in the usual sterile fashion. Ultrasound guidance was used to obtain access. I provided direct xvyg-ic-gtoe moderate conscious sedation which administered by independent [...] The RCA has slow flow and a INTERNAL MEDICINE NURSE PRACTITIONER in the mid segment which is unchanged [...] 231(H) 123 - 168 sec POC Performer [id number] [facility] POC Device Number [id number] [facility] Blood 10/16/2024 2:30 PM CDT 10/16/2024 2:30 PM CDT Clifford Sandy MD LAB POCT ORDERABLES - DEVICE Final Result Performing Organization Address City/[facility]/ZIP Co de Phone Number [facility] [place] [address] * (ABNORMAL) POCT Activated clotting time, low range (10/16/2024 2:11 PM CDT) Pathologist [facility] ACT 269(H) 123 - 168 sec POC Performer [id number] [facility] POC Device Number [id number] [facility] Blood 10/16/2024 2:11 PM CDT 10/16/2024 2:11 PM CDT Clifford Sandy MD LAB POCT ORDERABLES - DEVICE Final Result Performing Organization Address [facility] Co de Phone Number [facility] [place] [address] * CBC without differential (10/16/2024 12:35 PM CDT) [facility] WBC See Comment 3.80 - 9.90 Comment:Credited, specimen c lotted. Hgb See Comment 13.0 - 17.5 [facility] Comment:Credited, specimen c lotted. Hct See Comment 38.9 - 50.3 [facility] Comment:Credited, specimen c lotted. Plt See Comment 150 - 400 [facility] Comment:Credited, specimen c lotted. MPV See Comment 9.1 - 12.3 [facility] Comment:Credited, specimen c lotted. RBC See Comment 4.30 - 5.80 [facility] Comment:Credited, specimen c lotted. MCV See Comment 81.3 - 96.4 [facility] Comment:Credited, specimen c lotted. MCH See Comment 27.1 - 33.3 [facility] Comment:Credited, specimen c lotted. MCHC See Comment 32.3 - 35.7 [facility] Comment:Credited, specimen c lotted. RDW CV See Comment 11.1 - 14.9 [facility] Comment:Credited, specimen c lotted. RDW SD See Comment 35.7 - 48.1 [facility] Comment:Credited, specimen c lotted. NRBC abs See Comment 0.00 - 0.01 [facility] Comment:Credited, specimen c lotted. Blood 10/16/2024 12:3 5 PM CDT 10/16/2024 2:05 PM CDT Narrative [facility] - 10/16/2024 2:33 PM CDT To be drawn after hydration bolus complete Clifford Sandy MD LAB BLOOD ORDERABLES Final Result Performing Organization Address [facility] Co de Phone Number [facility] [place] [address] * POCT glucose (10/16/2024 9:19 AM CDT) Glucose, POC 118 70 - 199 mg/dL Blood 10/16/2024 9:19 AM CDT 10/16/2024 9:19 AM CDT Clifford Sandy MD LAB POCT ORDERABLES - DEVICE Final Result Performing Organization Address [facility] de Phone Number [facility] [place] [employer] [place] [address] * ECG 12 lead (10/16/2024 8:32 AM CDT) Ventricular Rate EKG/Min 70 BPM [facility] Atrial Rate 70 BPM [facility] CT-Interval (MSEC) 304 ms [facility] QRS-Interval (MSEC) 132 ms [facility] QT-Interval (MSEC) 374 ms [facility] QTc 403 ms [facility] P Graham 2 degrees [facility] R Graham 1 degrees [facility] T Graham 252 degrees [facility] Diagnosis Atrial-paced rhythm with prolonged AV conduction Left ventricular hypertrophy with QRS widening and repolarization abnormality ( Sokolow-Pereira , Mobile product ) Cannot rule out Septal infarct , age undetermined Abnormal ECG When compared with ECG of 25-NOV-2022 12:06, no significant change Confirmed by ERNESTINE TAVERAS M.D ([id number]) on 10/17/2024 3:04:[address] [facility] 10/16/2024 8:32 AM CDT 10/17/2024 3:04 PM CDT Clifford Sandy MD ECG ORDERABLES Lilia l Result [facility] * DEVICE CHECK - REMOTE (10/08/2024 3:10 AM CDT) Anatomical Region Laterality Modality Other 10/08/2024 3:10 AM CDT Narrative 10/11/2024 11:10 AM CDT Interpretation Summary: Battery and Leads (BL) Normal parameters noted on battery and lead(s) --- 35% remaining longevity (implanted 2014). Lead impedance, sensing, and threshold trends stable and appropriate. Presenting Rhythm (CT) Atrial Pacing-Ventricular Pacing (AP-ROTARY KILN OPERATOR) --- AP/ROTARY KILN OPERATOR 70s. Arrhythmic events (AE) No new arrhythmic [...] and threshold trends stableand appropriate. Presenting Rhythm (CT) Atrial Pacing-Ventricular Pacing (AP-ROTARY KILN OPERATOR) --- AP/ROTARY KILN OPERATOR 70s. Arrhythmic events (AE) No new arrhythmic [...] Study Date: 10/04/2024 1:37:00 PM Gender: M Music Cataloguer: Leandra Frazier RN/RVT Ref Provider: IVET MONTANA Quality: Adequate Order Provider: IVET MONTANA PROCEDURES: Arterial Report: Bilateral lower extremity arterial Doppler exam at rest and with exercise. INDICATIONS: I70.213 Atherosclerosis of ione arteries of extremities with intermittent claudication, bilateral legs. HISTORY: Claudication lower extremities L>R. HTN/HLD/DM/CAD/PREV SMOKER. COMPARISONS: The previous exam was completed on 09/05/2024. Compared to prior RT PT/DP .89/.53 LT PT/DP .92/.74. MEASUREMENTS: Right Value Left Value Rt Brachial Pressure 158 mmHg Lt Brachial Pressure 151 mmHg Rt PHYSICIAN PEDIATRICIAN Pressure 169 mmHg Lt PHYSICIAN PEDIATRICIAN Pressure 163 mmHg Rt DPA Pressure 164 [...] Extremity Arterial Doppler Report Patient Name: VICKY YOUSSFEGriselda : 1955 Study Date: 10/04/2024 1:37:00 PM Gender: M Music Cataloguer: Leandra Frazier RN/RVT Ref Provider: IVET MONTANA Quality: Adequate Order Provider: IVET MONTANA PROCEDURES: Arterial Report: Bilateral lower extremity arterial Doppler exam at rest and withexercise. INDICATIONS: I70.213 Atherosclerosis of ione arteries of extremities withintermittent claudication, bilateral legs. HISTORY: Claudication lower extremities L>R. HTN/HLD/DM/CAD/PREV SMOKER. COMPARISONS: The previous exam was completed on 09/05/2024. Compared to prior RT PT/DP .89/.53 LT PT/DP .92/.74. MEASUREMENTS: Right Value Left Value Rt Brachial Pressure 158 mmHg Lt Brachial Pressure 151 mmHg Rt PHYSICIAN PEDIATRICIAN Pressure 169 mmHg Lt PHYSICIAN PEDIATRICIAN Pressure 163 mmHg Rt DPA Pressure 164 [...] 1:31:20 PM CDT us Ivet Montana MD [facility] US PROCEDURES Final Result * Pro B-type [...] MD LAB BLOOD ORDERABLES F inal Result [facility] Department [place] [address] * CBC with auto differential (10/03/2024 11:50 [...] MD LAB BLOOD ORDERABLES F inal Result [facility] * Basic metabolic panel (10/03/2024 11:50 AM CDT) [facility] Glucose 97 64 - 99 mg/dL [facility] [...] AM CDT Narrative 10/03/2024 11:12 AM CDT [facility] Cardiac [place] [address] Transthoracic Echocardiographic Report Patient Name: VICKY YOUSSEF D : 1955 (69y 6m) Gender: M Study Date: 10/03/2024 09:38:56 AM Ht(Inch): 71 Wt(Lb): 210.98 BSA: 2.19 Music Cataloguer: Soco Marcano RDCS Location: [facility] Order Provider: RIGO CARROLL Heart Rate: 70 [...] LA Length 4C 5.23 cm AI Decel Fountain 2.86 m/s2 LA Length 2C 4.36 cm [...] Procedure Note Rigo Carroll MD - 10/03/2024 [facility] Card[facility] [place] [address] Transthoracic Echocardiographic Report Patient Name: VICKY YOUSSEF D : 1955 (69y 6m) Gender: M Study Date: 10/03/2024 09:38:56 AM Ht(Inch): 71 Wt(Lb): 210.98 BSA: 2.19 Music Cataloguer: Soco Marcano RDCS Location: [facility] Order Provider:RIGO CARROLL Heart Rate: 70 BMI: [...] [ -25.0 - -18.0 ] AI Decel Voas4852.25 sec LA Length 4C 5.23 cm AI Decel Slope2.86 m/s2 LA Length 2C 4.36 cm AI FAE250.99 msec LA Volume BP 50.69 ml Lat E` Vel4.0 cm/sec [ 10.0 - 25.0 ] LA Volume Index 23.15 ml/m2 [ 16.00 - 34.00 ] RV S`7.62 cm/sec RV Base Dimen 2D 3.9 cm [ 2.5 - 4.2 ] PV Peak Vel0.8 m/s [ 0.4 - 0.8 ] TAPSE 0.94 cm [ 1.71 - 5.00 ] PV Peak PG2.56 mmHg RA Bjmmvo69.65 ml RA Volume Index17.19 ml/m2 IVC Diam1.47 [...] [facility] [address] [address] Lower Extremity Arterial Duplex Report Patient Name: VICKY YOUSSEF D : 1955 (69y 5m) Gender: M Study Date: 09/05/2024 09:33:41 AM Ht(Inch): Wt(Lb): BSA: Music Cataloguer: CORI Location: [facility] Order Provider: IVET MONTANA Quality: Adequate Ref Provider: IVET MONTANA PROCEDURES: Arterial Report: A non-invasive vascular imaging study of the bilateral lower extremity arteries was performed using B-mode ultrasound, color flow, and spectral Doppler. INDICATIONS: R>L claudication, remote hx BCIA stents. HISTORY: HTN. HLD. DM. CAD-NE S/P stent/CABG. Afib. Pacemaker. Former smoker. COMPARISONS: Prior CTA on 09/27/23. MEASUREMENTS: Right Value Left Value Rt ORNAMENTER HAND Dst PSV 77.00 cm/sec Lt ORNAMENTER HAND Dst PSV 87.00 cm/sec Rt Profunda Prx [...] [facility] [address] [address] Lower Extremity Arterial Duplex Report Patient Name: VICKY YOUSSEF D : 1955 (69y 5m) Gender: M Study Date: 09/05/2024 09:33:41 AM Ht(Inch): Wt(Lb): BSA: Music Cataloguer: CORI Location: [facility] Order Provider: IVET MONTANA Quality: Adequate Ref Provider: IVET MONTANA PROCEDURES: Arterial Report: A non-invasive vascular imaging study of the bilaterallower extremity arteries was performed using B-mode ultrasound, color flow, and spectralDoppler. INDICATIONS: R>L claudication, remote hx BCIA stents. HISTORY: HTN. HLD. DM. CAD-NE S/P stent/CABG. Afib. Pacemaker. Former smoker. COMPARISONS: Prior CTA on 09/27/23. MEASUREMENTS: Right Value Left Value Rt ORNAMENTER HAND Dst PSV 77.00 cm/sec Lt ORNAMENTER HAND Dst PSV 87.00 cm/sec Rt Profunda Prx [...] PM CDT [facility] [address] [place] [address] Lower Extremity Arterial Doppler Report Patient Name: VICKY YOUSSEF D : 1955 Study Date: 09/05/2024 8:50:00 AM Gender: M Music Cataloguer: Maureen Vásquez RVT Location: [facility] Ref Provider: IVET MONTANA Quality: Adequate Order Provider: IVET MONTANA PROCEDURES: Arterial Report: Ankle - Brachial Index Doppler exam. INDICATIONS: Remote hx BCIA stents; R>L claudication. HISTORY: HTN. HLD. DM. CAD-NE S/P stent/CABG. Afib. Pacemaker. Former smoker. COMPARISONS: The previous exam was completed on 11/19/23. Compared to prior there is disease progression at bilateral dorsalis pedis arteries. MEASUREMENTS: Right Value Left Value Rt Brachial Pressure 159 mmHg Lt Brachial Pressure 146 mmHg Rt PHYSICIAN PEDIATRICIAN Pressure 142 mmHg Lt PHYSICIAN PEDIATRICIAN Pressure 147 mmHg Rt DPA Pressure 84 [...] - 09/06/2024 [facility] [address] [place] [address] Lower Extremity Arterial Doppler Report Patient Name: VICKY YOUSSEF Griselda : 1955 Study Date: 09/05/2024 8:50:00 AM Gender: M Music Cataloguer: Maureen Vásquez RVT Location: [facility] Ref Provider: IVET MONTANA Quality: Adequate Order Provider: IVET MONTANA PROCEDURES: Arterial Report: Ankle - Brachial Index Doppler exam. INDICATIONS: Remote hx BCIA stents; R>L claudication. HISTORY: HTN. HLD. DM. CAD-NE S/P stent/CABG. Afib. Pacemaker. Former smoker. COMPARISONS: The previous exam was completed on 11/19/23. Compared to prior there is disease progression at bilateral dorsalis pedisarteries. MEASUREMENTS: Right Value Left Value Rt Brachial Pressure 159 mmHg Lt Brachial Pressure 146 mmHg Rt PHYSICIAN PEDIATRICIAN Pressure 142 mmHg Lt PHYSICIAN PEDIATRICIAN Pressure 147 mmHg Rt DPA Pressure 84 [...] PM CDT [facility] [address] [place] [address] Abdominal Aortic Duplex Ultrasound Report Patient Name: VICKY YOUSSEF D : 1955 Study Date: 09/05/2024 8:52:47 AM Gender: M Music Cataloguer: Location: [facility] Ref Provider: IVET MONTANA Quality: [...] MD - 09/06/2024 [facility] [address] [place] [address] Abdominal Aortic Duplex Ultrasound Report Patient Name: VICKY YOUSSEF Griselda : 1955 Study Date: 09/05/2024 8:52:47 AM Gender: M Music Cataloguer: Location: [facility] Provider: IVET MONTANA Quality: Adequate Order Provider: [...] INJ INJ Bilateral () (08/10/2024 11:30 AM HOME HEALTH CARE PHYSICIAN) Narrative [facility] - 08/10/2024 11:30 AM HOME HEALTH CARE PHYSICIAN The images from this study are not [...] Result * PSA screen (06/17/2023 10:13 AM HOME HEALTH CARE PHYSICIAN) [facility] PSA 0.4 0.0 - 4.0 ng/mL [facility] - 01 Comment: Shahbaz ECLIA methodology. According to the [employer], Serum PSA should decrease and [...] malignant disease. Blood 06/17/2023 10:1 3 AM HOME HEALTH CARE PHYSICIAN 06/17/2023 Narrative [facility] - 06/18/2023 6:11 AM HOME HEALTH CARE PHYSICIAN Performed at: [address] [place] [id number] Financial Director: Edgar Menard PhD, Phone: [phone] Mamie Rose DIE PRESS OPERATOR LAB BLOOD ORDERABLES [facility] al Result [facility] - * COLONOSCOPY (01/01/2021 12:16 PM CDT) Anatomical Region Laterality Modality Other Narrative Procedure Note Emily Zeng MD - 01/01/2021 12:16 PM CDT [facility] Patient Name: Vicky Youssef Procedure Date: 01/01/2021 12:16 PM Date of : 1955 Admit Type: Outpatient Age: 65 Gender: Male Attending MD: Huy Reed Room: [facility] ENDOSCOPY ROOM 3 Note Status: Finalized Procedure: [...] passed under direct vision.The CF [id number] endoscope was introducedthrough the anus and advanced to the cecum, identified by appendiceal orifice and ileocecal valve. The colonoscopy was performed without difficulty. The patient tolerated the procedure well. The qualityof the bowel preparation was evaluated using the BBPS (Blaine Bowel Preparation Scale) with scores of:Right Colon [...] On: 01/01/2021 12:16 PM Recognized by the [employer] for promoting quality in endoscopy Emily Zeng MD ENDOSCOPY PROCEDUR ES Final Result from Last 3 Months or Most Recently Relevant to Health Maintenance Insurance MEDICARE [facility] MEDICARE SUPPLEMENT MEDICARE [facility] MEDICARE MEDICARE [facility] MEDICARE SUPPLEMENT MEDICARE [facility] MEDICARE SUPPLEMENT MEDICARE [facility] [place] [facility] MEDICARE SUPPLEMENT Advance Directives For more information, please contact: [phone] * Full Code (Latest Code Status on [...] 4:34 PM 05/02/2021 4:45 PM Care Teams Level Glass Forming Machine Operator Relationship Specialty Start Date End Date Perry Romero MD PCP - General Internal Medicine 02/23/20 Rigo Carroll MD [facility] 05/23/19 Love Jones, PT Physical Therapist Physical Therapy 09/28/22 Arthur Bateman MD [address] [address] Referring Physician Anesthesiology 09/28/22 Karl Cha MD [address] [facility] [address] [place] [address] Referring Physician Orthopedic Surgery 11/24/23
--- OUTSIDE RECORDS SUMMARY | 2024-10-31 14:20 | XMS_ITS | Encounter Summary ---
Author Organization [facility] Address [address] [place] [address] Phone Care Team Providers Care Client Partner Name Role Phone Tim Sanchez MD Primary Care Provider [phone] Lina Mcadams MD Primary Care Provide r Deacon Eisenberg DO Primary Care Provider [phone] Leonidas Carroll MD Unavailable [phone] Perry Romero MD Primary Care Provider [phone] Love Jones PT Unavailable Unavailab Arthur Law MD Unavailable Karl Cha MD Unavailable [phone] Encounter Details Date Type Department Care Team (Latest Contact Info) Description 03/05/2017 Orders Only [facility] CONVERSION Scanning, Provider Social History Tobacco Use Types Packs/Day Years Used Date Smoking Tobacco: Never Assessed Sex and Gender Information Value Date Recorded Sex Assigned at Not on file Legal Sex Male 11:34 PM PURCHASE ORDER CHECKER Gender Identity Not on file Sexual Orientation [...] on filedocumented in this encounter Care Teams Client Partner Relationship Specialty Start Date End Date Tim Sanchez MD [address] [place] [address] PCP - General 09/29/16 01/13/18 Lina Mcadams MD [address] [facility] [address] [place] [address] PCP - General 01/14/18 11/21/18 Deacon Eisenberg DO [address] [address] PCP - General 11/22/18 02/22/20 Perry Romero MD [address] [address] PCP - General Internal Medicine 02/23/20 Leonidas Carroll MD [address] [address] Advertising Executive Cardiology 05/23/19 Love Jones, PT Physical Therapist Physical Therapy 09/28/22 Arthur Bateman MD [address] [address] Referring Physician Anesthesiology 09/28/22 Karl Cha MD [address] [facility] [address] [place] [address] Referring Physician Orthopedic Surgery 11/24/23 documented as of this encounter
--- OUTSIDE RECORDS SUMMARY | 2024-10-31 14:20 | XMS_ITS | Encounter Summary ---
Author Organization [facility] Address [address] [place] [address] Phone Care Team Providers Care Tool And Die Technician Name Role Phone Leonidas Carroll MD Unavailable [phone] Perry Romero MD Primary Care Provider [phone] Love Jones PT Unavailable Unavailab Arthur Law MD Unavailable Karl Cha MD Unavailable [phone] Encounter Details Date Type Department Care [...] on file Legal Sex Male 11:34 PM STNA Gender Identity Not on file Sexual Orientation [...] in this encounter Care Teams Tool And Die Technician Relationship Specialty Start Date End Date Perry Romero MD PCP - General Internal Medicine 02/23/20 Leonidas Carroll MD Regulatory Affairs Manager Cardiology 05/23/19 Love Jones, PT Physical Therapist Physical Therapy 09/28/22 Arthur Bateman MD [address] [address] Referring Physician Anesthesiology 09/28/22 Karl Cha MD [address] [place] [address] Referring Physician Orthopedic Surgery 11/24/23 documented as of this encounter
--- OUTSIDE RECORDS SUMMARY | 2024-10-31 14:20 | XMS_ITS | Encounter Summary ---
Author Organization [facility] Address [address] [place] [address] Care Team Providers Care Hvac Project Manager Name Role Phone Leonidas Carroll MD Unavailable [phone] Perry Romero MD Primary Care Provider [phone] Love Jones PT Unavailable Unavailab Arthur Law MD Unavailable Karl Cha MD Unavailable [phone] Encounter Details Date Type Department Care Team (Late st Contact Info) Description 10/28/2021 Telephone [facility] Radiology [address] [place], [place] [id number] Alberto Pack MD PhD [address] [place] [address] Social History Tobacco Use Types Packs/Day Years [...] How often do you attend [facility] or congregational services? 1 to 4 times per year 05/02/2021 Do you belong to any clubs o r organizations such as latter-day groups, unions, fraternal or athletic groups, or [...] on file Legal Sex Male 11:34 PM PRODUCTION GRIP Gender Identity Not on file Sexual Orientation Not on file documented as of this encounter Plan of Treatment Not on file documented as of this encounter Goals Goal Patient Goal Type Associated Problems Recent Progress Patient-Stated? Author CCM Chronic Pain Care Plan Chronic Care Management No change(08/10 10:32 AM PRODUCTION GRIP) No Brissa Muse, RN Note: Problem: Chronic Pain Goals: 1. Minimize further functional decline 2. Maximize quality of life 3. Control pain Strategies: - Activity/exercise program recommendation - Conservative stepwise pain medicine strategy with multi-disciplinary approach - Recommend healthy lifestyle strategies and compensatory methods as needed documented as of this encounter Visit Diagnoses Not on filedocumented in this encounter Care Teams Hvac Project Manager Relationship Specialty Start Date End Date Perry Romero MD PCP - General Internal Medicine 02/23/20 Leonidas Carroll MD Dynamometer Repairer Cardiology 05/23/19 Love Jones, PT Physical Therapist Physical Therapy 09/28/22 Arthur Bateman MD [address] [address] Referring Physician Anesthesiology 09/28/22 Karl Cha MD [address] [place] [address] Referring Physician Orthopedic Surgery 11/24/23 documented as of this encounter
--- OUTSIDE RECORDS SUMMARY | 2024-10-31 14:20 | XMS_ITS | Encounter Summary ---
Author Organization [facility] Healthcare Address [address] [place] [address] Care Team Providers Care Hand Router Operator Name Role Phone Leonidas Carroll MD Unavailable [phone] Perry Romero MD Primary Care Provider [phone] Love Jones PT Unavailable Unavailab Arthur Law MD Unavailable Karl Cha MD Unavailable [phone] Reason for Visit * Reason Onset Date Comments pre proc blood thinner 07/24/2021 Encounter Details Date Type Department Care Team (Late st Contact Info) Description 07/24/2021 Telephone [facility] [address] [facility] [address] [place], [place] [id number] Arthur Bateman MD [address] [facility] [address] [place], [place] [id number] pre proc blood thinner Social History Tobacco [...] often do you attend chur ch or catholic services? 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 Author CCM Chronic Pain Care Plan Chronic Care Management No change(08/10 10:32 AM ELIGIBILITY CLERK) No Brissa Muse RN Note: Problem: Chronic Pain Goals: 1. Minimize further functional decline 2. Maximize quality of life 3. Control pain Strategies: - Activity/exercise program recommendation - Conservative stepwise pain medicine strategy with multi-disciplinary approach - Recommend healthy lifestyle strategies and compensatory methods as needed documented as of this encounter Visit Diagnoses Not on filedocumented in this encounter Care Teams Hand Router Operator Relationship Specialty Start Date End Date Perry Romero MD PCP - General Internal Medicine 02/23/20 Leonidas Carroll MD Catering Attendant Cardiology 05/23/19 Love Jones, PT Physical Therapist Physical Therapy 09/28/22 Arthur Bateman MD [address] [address] Referring Physician Anesthesiology 09/28/22 Karl Cha MD [address] [place] [address] Referring Physician Orthopedic Surgery 11/24/23 documented as of this encounter
--- OUTSIDE RECORDS SUMMARY | 2024-10-31 14:21 | XMS_ITS | Continuity of Care Document ---
Author Organization [facility] Address [id number] [place] [address] [address] [place] [address] Phone Care Team Providers Care Fast Food Worker Name Role Phone Mary Ellen Dunn Unavailable Unavailable Advance Directives Directive Yes / No Effective Date File Name No Information Encounters Encounter Description Practice Location Reason(s) For Visit Diagnoses Date Provider Providers Copied on Encounter [facility], [id number] [place] [address] [address], [place], [place], [id number], [place] tel:[phone] [facility] No Information 4-[address] Mona Hyde. [address] [facility] , [address], [place], [address], [place]. tel:[phone] Family History Family Member Type Diagnosis Age [...]
--- OUTSIDE RECORDS SUMMARY | 2024-10-31 14:21 | XMS_ITS | Referral Summary ---
Author Organization [facility] Address [address] [place] [address] Care Team Providers Care Under Ground Miner Name Role Phone Rigo Carroll MD Unavailable [phone] Perry Romero MD Primary Care Provider [phone] Love Jones PT Unavailable Unavailab Arthur Law MD Unavailable Karl Cha MD Unavailable [phone] Encounters Date Type Department Care Team Description 10/25/2024 1:00 PM CDT Office Visit [facility] Orthopaedic Surgery [facility] 6th [place] [address] [place] [address] Sudhir Martinez MD Greater trochanteric pain syndrome of right lower extremity (Primary Dx); Chronic right hip pain; Chronic knee pain after total replacement of left knee joint 10/23/2024 Telephone [facility] Cardiology [facility] 8th [place] [address] [place] [address] Rigo Carroll MD BP updates 10/18/2024 Results Follow-Up [facility] Cardiology [facility] 8th [place] [address] [place] [address] Rigo Carroll MD Basic metabolic panel, eGFR 10/18/2024 10:10 AM CDT - 10/18/2024 11:59 PM CDT Hospital Encounter [address] [address] High risk medications (not anticoagulants) long-term use Discharge Disposition: Discharge to home or self care 10/18/2024 10:15 AM CDT Lab [facility] Outpatient Lab at [address] [address] Diabetes mellitus type 2 without retinopathy (HCC) (Primary Dx); High risk medications (not anticoagulants) long-term use 10/16/2024 Results Follow-Up [facility] Cardiology [address] [place] [address] 8th [place] [address] [place] [address] Rigo Carroll MD Cardiac Catheterization 10/16/2024 10:45 AM CDT - 10/16/2024 12:25 PM CDT Surgery [facility] [address] [place] [phone] Clifford Sandy MD CORONARY ARTERY AND GRAFT ANGIOGRAPHY [address] 10/16/2024 8:28 AM CDT - 10/16/2024 5:00 PM CDT Hospital Encounter [facility] [address] [place] [phone] Clifford Sanyd MD Coronary artery disease involving nansemond indian tribe heart without angina pectoris, unspecified vessel or lesion type Discharge Disposition: Discharge to home or self care 10/11/2024 Orders Only [facility] Health Information Management [address] [place] [address] Scanning, Provider 10/11/2024 Orders Only [facility] Vascular at [address] [place] [phone] Ivet Montana MD Atherosclerosis 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 (Primary Dx); Other specified symptoms and signs involving the circulatory and respiratory systems 10/11/2024 8:45 AM CDT Office Visit [facility] Vascular at [address] [place] [phone] Ivet Montana MD Peripheral vascular disease (Primary Dx); Primary hypertension; Mixed hyperlipidemia 10/05/2024 Telephone [facility] Cardiology [address] [facility] 8th [place] [address] [place] [address] Rigo Carroll MD follow up of previous orders 10/05/2024 10:00 AM CDT Office Visit [facility] Ophthalmology [address] [facility] 1st [place] [address] Sherri Jean-Baptiste MD 10/04/2024 1:17 PM CDT - 10/04/2024 11:59 PM CDT Hospital Encounter [facility] Medical Office Building [address] [id number] Atherosclerosis 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 Discharge Disposition: Discharge to home or self care 10/03/2024 Results Follow-Up [facility] Cardiology [address] [place] [address] [place] [address] Rigo Carroll MD Pro B-type natriuretic peptide 10/03/2024 Results Follow-Up [facility] Cardiology [address] [place] [address] [place] [address] Rigo Carroll MD CBC with auto differential, Basic metabolic panel 10/03/2024 Telephone [facility] Cardiology [address] [place] [address] [place] [address] Rigo Carroll MD Cath orders 10/03/2024 11:50 AM CDT - 10/03/2024 11:59 PM CDT Hospital Encounter [facility] [address] [place] [address] Coronary artery disease involving nansemond indian tribe coronary artery of nansemond indian tribe heart without angina pectoris Discharge Disposition: Discharge to home or self care 10/03/2024 11:45 AM CDT Lab [facility] Endocrinology Metabolism and Lipid [address] [place] [address] [place] [address] Coronary artery disease involving nansemond indian tribe coronary artery of nansemond indian tribe heart without angina pectoris 10/03/2024 9:15 AM CDT - 10/03/2024 11:59 PM CDT Hospital Encounter [facility] Cardiac Diagnostic Lab [address] [facility] 8th [place] [address] Cardiomyopathy, ischemic Discharge Disposition: Discharge to home or self care 10/03/2024 10:30 AM CDT Office Visit [facility] Cardiology [address] [facility] 8th [place] [address] [place] [address] Rigo Carroll MD Coronary artery disease involving nansemond indian tribe coronary artery of nansemond indian tribe heart without angina pectoris (Primary Dx); Primary hypertension; Pure hypercholesterolemia; Peripheral vascular disease; Presence of cardiac pacemaker 09/13/2024 Orders Only [facility] Vascular at [address] [place] [address] Ivet Montana MD Atherosclerosis 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 (Primary Dx) 09/13/2024 8:30 AM CDT Office Visit [facility] Vascular at [address] [address] Ivet Montana MD Peripheral vascular disease (Primary Dx); Mixed hyperlipidemia; Primary hypertension 09/05/2024 10:00 AM CDT Ancillary Procedure [facility] Vascular and Vein Surgery at [address] [address] Atherosclerosis 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 09/05/2024 10:00 AM CDT Ancillary Procedure [facility] Vascular and Vein Surgery at [address] [place] [phone] Atherosclerosis 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 09/05/2024 9:00 AM CDT Ancillary Procedure [facility] Group Vascular and Vein Surgery at [address] [address] Atherosclerosis 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; Other specified symptoms and signs involving the circulatory and respiratory systems 09/04/2024 10:30 AM CDT Office Visit [facility] [address] [facility] [address] [place] [address] Perry Romero MD Diabetes mellitus type II, non insulin dependent (HCC) (Primary Dx); Sick sinus syndrome (CMS/HCC) (HCC); Primary hypertension; Coronary artery disease involving nansemond indian tribe heart without angina pectoris, unspecified vessel or lesion type 08/30/2024 Orders Only [facility] Vascular at [address] [place] [address] Ivet Montana MD Atherosclerosis 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 (Primary Dx); Other specified symptoms and signs involving the circulatory and respiratory systems 08/30/2024 9:15 AM CDT Office Visit [facility] Group Vascular at [address] [place] [address] Rosana Fink NP Peripheral vascular disease (Primary Dx); Mixed hyperlipidemia; Primary hypertension 08/10/2024 10:[address] LANDSCAPE ARCHITECT - 08/10/2024 11:[address] LANDSCAPE ARCHITECT Hospital Encounter [facility] Medicine [address] [place] [address] [place] [address] Arthur Bateman MD Greater trochanteric bursitis of both hips (Primary Dx); Tensor fascia shorty syndrome; Spondylosis of lumbar region without myelopathy or radiculopathy Discharge Disposition: Discharge to home or self care 08/03/2024 Telephone [facility] Orthopaedic Surgery [address] [facility] Medical Office Building [address] [place] [address] Zbigniew Noel MD 08/03/2024 Telephone [facility] [address] [place] [address] Perry Romero MD Referral to Vascular from Last 3 Months Allergies Active Allergy Reactions Criticality Noted Date Comments Aarvoox-Udi-Kgq Reductase Inhibitors Other (See comments) Low 05/03/2024 [...] 1 tablet (5 mg 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) 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 90 tablet 3 025 Active [...] 06/17/2023 Assessment & Plan (06/17/2023 10:[address] LANDSCAPE ARCHITECT): Continue flexeril 10mg Q8 PRN Trial gabapentin 100mg Q8 TID Topical lidocaine patches 4%, on for 12 hours/off for 12 hours Will send [place] 5/325 PRN #28, discussed that this will [...] 07/21/2021 Assessment & Plan (07/21/2021 9:[address] LANDSCAPE ARCHITECT): Baseline creatine 1.3-1.5 Creatine Within patient;s baseline at 1.3 CTM Received IV fluids 500 ml on admission for creatine 1.59 Statin intolerance 07/18/2021 Assessment & Plan (07/18/2021 3:[address] LANDSCAPE ARCHITECT): History of statin intolerance -Continue ezetimibe and fenofibrate DM2 (diabetes mellitus, type 2) 07/18/2021 Assessment & Plan (07/19/2021 7:[address] LANDSCAPE ARCHITECT): Follow glucose and rx with insulin Metformin held for now pending cath. Assessment & Plan (07/18/2021 3:[address] LANDSCAPE ARCHITECT): -Hemoglobin A1c 6.1 -Hold home metformin while inpatient -SSI while admitted -Carb consistent diet -Accuchecks BPH (benign prostatic hyperplasia) 07/18/2021 Assessment & Plan (07/18/2021 3:[address] LANDSCAPE ARCHITECT): BPH s/p TURP -Continue home finasteride and tamsulosin HLD (hyperlipidemia) 07/18/2021 Assessment & Plan (10/11/2024 11:06 AM CDT): Recommend statin therapy. Assessment & Plan (09/15/2024 10:52 AM CDT): Stable continue Zetia Assessment & Plan (08/31/2024 1:57 PM CDT): Impression: Chronic stable. Plan: Continue Zetia, fenofibrate Assessment & Plan (07/21/2021 8:[address] LANDSCAPE ARCHITECT): LDL ok while on non-statins due to intolerance. Continue present Rx for now Assessment & Plan (07/20/2021 8:[address] LANDSCAPE ARCHITECT): LDL ok while on non-statins due to intolerance. Continue present Rx for now Assessment & Plan (07/19/2021 7:[address] LANDSCAPE ARCHITECT): LDL ok while on non-statins due to intolerance. Continue present Rx for now Assessment & Plan (07/18/2021 3:[address] LANDSCAPE ARCHITECT): Lipid panel WNL -Continue ezetimibe and fenofibrate [...] 07/18/19 Assessment & Plan (07/18/2021 4:[address] LANDSCAPE ARCHITECT): PVOD s/p bilateral iliac stents Unstable angina 07/18/2021 Overview (07/18/2021): Added automatically from request for surgery [id number] Assessment & Plan (07/21/2021 8:[address] LANDSCAPE ARCHITECT): CP concerning for USA. troponins normal, ruled out for HI. I have recommended coronary angiography and this is scheduled for today. Pt has PAD Continue IV heparin, follow labs and adjust. Continue aspirin, plavix, beta carrie, Patient asymptomatic. Cardiac catheterization scheduled for tomorrow. NPO after midnight. Assessment & Plan (07/20/2021 8:[address] LANDSCAPE ARCHITECT): CP concerning for USA. troponins normal, ruled out for HI. I have recommended coronary angiography and this is scheduled for Wednesday. Pt has PAD and radial approach may be preferred. Continue IV heparin, follow labs and adjust. Continue aspirin, plavix, beta carrie, Patient asymptomatic. Cardiac catheterization scheduled for tomorrow. NPO after midnight. Assessment & Plan (07/19/2021 7:[address] LANDSCAPE ARCHITECT): CP concerning for USA. troponins normal, ruled out for HI. Brief left sided chest pain since admission. [...] (03/06/2021): Added automatically from request for surgery [id number] Presbyopia 02/03/2021 Assessment & Plan (08/12/2023 5:[address] LANDSCAPE ARCHITECT): -Noting increased difficulty with near vision while reading -Recommended trialing higher power reading glasses Assessment & Plan (02/03/2021 2:44 PM CDT): Correctable to 20/25 right eye (OD) and left eye (OS). Update specs as desired. Rosacea 09/18/2020 Metatarsalgia of right foot 07/04/2020 Overview (07/04/2020): Added automatically from request for surgery [id number] Sesamoiditis 07/04/2020 Overview (07/04/2020): Added automatically from request for surgery [id number] Painful orthopaedic hardware 07/04/2020 Overview (07/04/2020): Added automatically from request for surgery [id number] Achilles tendon contracture, right 07/04/2020 Overview (07/04/2020): Added automatically from request for surgery [id number] Pseudarthrosis after fusion or arthrodesis 02/28 Overview (02/28/2019): Added automatically from request for surgery [id number] Diabetes mellitus type 2 without retinopathy 05/2019 Assessment & Plan (02/09/2023 3:33 PM CDT): Continue strict BS control, annual dilated eye exams. Assessment & Plan (06/17/2022 4:[address] LANDSCAPE ARCHITECT): Continue strict BS control, annual dilated eye [...] months Assessment & Plan (08/12/2023 5:[address] LANDSCAPE ARCHITECT): -Follow up exam for AMD; last visit [...] 6months Assessment & Plan (06/17/2022 9:[address] LANDSCAPE ARCHITECT): -No signs of exudation. -given the large [...] months Assessment & Plan (08/13/2021 3:[address] LANDSCAPE ARCHITECT): No signs of exudation. Per AREDS study, [...] follow. Assessment & Plan (06/17/2022 4:[address] LANDSCAPE ARCHITECT): NVS, follow. Assessment & Plan (02/23/2019 10:32 [...] (06/08/2018): Added automatically from request for surgery [id number] Palpitations 04/15/2018 CAD (coronary artery disease) 03/08/2018 Assessment & Plan (09/04/2024 11:21 AM CDT): stable Assessment & Plan (07/18/2021 3:[address] LANDSCAPE ARCHITECT): CAD s/p CABG in 2010 (KAUR-LAD which is known to be an atretic graft; vein graft-marginal; and vein graft-2nd marginal branch; RCA occluded, with collateral revascularization) -Last [facility] in 11/2018 showed patent KAUR graft to [...] Diabetes mellitus type II, non insulin dependent ([facility]) 01/15/2018 Assessment & Plan (09/04/2024 11:21 AM CDT): Stable and doing well Assessment & Plan (07/21/2021 9:[address] LANDSCAPE ARCHITECT): Hemoglobin a1c 6.1 - diet controlled for now Metformin on hold for [facility] Continue to monitor. Assessment & Plan (07/20/2021 8:[address] LANDSCAPE ARCHITECT): Blood sugar stable. Follow-up blood sugar. Treat with insulin as appropriate Metformin being held. Assessment & Plan (02/28/2020 3:23 PM CDT): a1c at target, recommend annual eye exam. Feet are without lesions. 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 Continue beta-carrie. Assessment & Plan (07/20/2021 8:[address] LANDSCAPE ARCHITECT): Pacer function stable Continue present Rx. Continue beta-carrie. 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 Maty Weber Assessment & Plan (02/28/2020 3:23 PM CDT): No palpitations, syncope Depressive disorder 03/15/2015 Panic disorder without agoraphobia 03/15/2015 Resolved Problems Problem Noted Date Diagnosed Date Resolved Date Pain in right foot 04/24/2022 LINUS (acute kidney injury) 07/18/2021 Assessment & Plan (07/21/2021 8:[address] LANDSCAPE ARCHITECT): Pt with CKDstage 3, CrCl 50 ml/min. Creatinine improved. Cath today Assessment & Plan (07/20/2021 8:[address] LANDSCAPE ARCHITECT): Pt with CKDstage 3, CrCl 50 ml/min. Repeat BMP today. IV hydration Wednesday night before cath recommended. Assessment & Plan (07/19/2021 7:[address] LANDSCAPE ARCHITECT): Pt with CKDstage 3, CrCl 50 ml/min. Stable. IV hydration Wednesday night before cath recommended. Assessment & Plan (07/18/2021 3:[address] LANDSCAPE ARCHITECT): LINUS (Cr 1.59 on admission) on CKD (baseline Cr 1.0-1.2) -S/p 500 ml LR bolus in ED -Follow BMPs Statin intolerance 02/10/2021 4 Syncope and collapse 12/30/2020 024 Encounter for screening colonoscopy 10/14/2020 06/17/2023 Overview (10/14/2020): Added automatically from request for surgery [id number] Joint pain 02/28/2020 06/17/2023 Assessment & Plan (04/29/2020 10:[address] LANDSCAPE ARCHITECT): Medrol dose pack Tramadol Q6 PRN (use, safety, s/e reviewed) Referral to Pain Management Assessment & Plan (02/28/2020 3:25 PM CDT): xrays noted, check rheum panel (? H/o pos JENNIFER) Confusion 01/04/2019 06/17/2023 Chest pain 01/15/2018 06/17/2023 Assessment & Plan (07/21/2021 9:[address] LANDSCAPE ARCHITECT): CAD s/p CABG (2010), admitted with chest [...] for chest pain -Telemetry monitoring NPO for [facility] Assessment & Plan (01/16/2018 10:39 [...] often do you attend chur ch or worship services? 1 to 4 times per year 05/02/2021 Do you belong to any clubs o r organizations such as baptist groups, unions, fraternal or athletic groups, or [...] on file Legal Sex Male 11:[address] ARCHITECT Gender Identity Not on file Sexual Orientation [...] Chronic Care Management No change(08/10 10:[address]APE ARCHITECT) No Brissa Muse, RN Note: Problem: Chronic Pain Goals: 1. Minimize further functional decline 2. Maximize quality of life 3. Control pain Strategies: - Activity/exercise program recommendation - Conservative stepwise pain medicine strategy with multi-disciplinary approach - Recommend healthy lifestyle strategies and compensatory methods as needed Medical Devices Implanted Type Area Pharmacist Apprentice Device Identifier Shelf Expiration Date Model / Serial / Lot Ter[employer]. Medical Lewis Angio-Seal Vip 6fr Closere Device [id number] - [id number] - [id number] Implanted:Qty: 1 on 11/25/2022 by Eliecer Mixon MD at [facility] Collagen Terumo Medical Lewis 06/13/2023 [id number] / [id number] / [id number] Terumo Medical Lewis Angio-Seal Vip 6fr Closere Device [id number] - [id number] - [id number] Implanted:Qty: 1 on 10/16/2024 by Clifford Sandy MD at [facility] Collagen Left: Common Femoral Artery TerWipit Lewis 05/01/2025 [id number] / [id number] / [id number] Lead (Ra)-05/08/2015 Implanted:05/08/2015 by Maty Weber MD (Quantity not on file) Lead Heart Biotronik 350 974 SETROX S 53 / [id number] / Lead (Rv)-05/08/2015 Implanted:05/08/2015 by Maty Weber MD (Quantity not on file) Lead Heart Biotronik 350 975 SETROX S 60 / [id number] / Pacemaker-05/08/2015 Implanted:05/08/2015 by Maty Weber MD (Quantity not on file) Pacemaker Left: Chest Biotronik [id number] ELUNA 8 JOVANNI AGUILA / [id number] / Synthes 201.814 2mm 3.5mm 14mm Self Tap Cruciform Cortex Screw Bone Stainless - S0 - [id number] Implanted:Qty: 1 on 08/06/2020 by Zoey Sexton MD at [facility][1] Screw Synthes I 201.814 / 0 / Medtronic Card Vasc Surgery 4.0 X 26mm Al [place] Rx Coronary Stent [id number] - [id number] - [id number] Implanted:Qty: 1 on 11/25/2022 by Clifford Sandy MD at [facility] Stent Medtronic Card Vasc Surgery 06/26/2025 [id number] / [id number] / [id number] Orthohelix Ubd-[id number] Maxtorque 4mm 32.5mm Cannulated Self Drill Foot Ankle Long Thread - [id number] Implanted:Qty: 1 on 06/28/2018 at [facility][1] Right: Foot Orthohelix MSD-010- 40-325L / / Orthohelix Time Study Technologist-002-Pmx Ortholink 3 Hole [place] Foot Ankle Standard Plate Bone Nonsterile Latex Free - [id number] Implanted:Qty: 1 on 06/28/2018 at [facility][1] Right: Foot Orthohelix PROGRESS DEVELOPER-002- PMX / / Orthohelix [id number] Maxlock Extreme 4mm 16mm Nonlock Foot Ankle Screw Bone Nonsterile - [id number] Implanted:Qty: 1 on 06/28/2018 at [facility][1] Right: Foot Orthohelix PROGRESS DEVELOPER-011- 4016 / / Orthohelix [id number] Maxlock Extreme 4mm 18mm Nonlock Foot Ankle Screw Bone Nonsterile Latex Free - [id number] Implanted:Qty: 1 on 06/28/2018 at [facility][1] Right: Foot Orthohelix PROGRESS DEVELOPER-011- 40-18 / / Orthohelix [id number] Maxlock Extreme 4mm 14mm Nonlock Foot Ankle Screw Bone Nonsterile Latex Free - [id number] Implanted:Qty: 1 on 06/28/2018 at [facility][1] Right: Foot Orthohelix PROGRESS DEVELOPER-011- 4014 / / Daig Lewis[employer] [id number] Angio-Seal Evolution 6fr .035in Guidewire Bypass Tube Suture - [id number] Implanted:Qty: 1 on 11/22/2018 by Sarah Vasquez MD at [facility] Daig Lewis[employer] 08/12/2019 [id number] / / [id number] Medtronic Sofamor Danek [id number] Infuse 14mm 23mm Absorbable Sponge Sterile Water Syringe Needle - [id number] Implanted:Qty: 1 on 06/02/2019 by Zoey Sexton MD at [facility] Right: Foot Medtronic Inc 01/11/2021 [id number] / / [id number] Plethora Technology Inc [id number] Plate Bone Medline Unite 0 D Medium Metatarsophalangeal Right Fusion Nonsterile - [id number] Implanted:Qty: 1 on 06/02/2019 by Zoey Sexton MD at [facility] Right: Foot Plethora Technology Inc [id number] / / Plethora Technology Inc [id number] Pin Fixation Medline Unite L10mm Od1.1mm - [id number] Implanted:Qty: 1 on 06/02/2019 by Zoey Sexton MD at [facility] Right: Foot Medline Industries Inc [id number] / / Medline Industries Inc [id number] Screw Bone Medline Unite L34mm Od4.5mm Head Nonsterile - [id number] Implanted:Qty: 1 on 06/02/2019 by Zoey Sexton MD at [facility] Right: Foot [employer] Inc [id number] / / Med[employer] Inc [id number] Screw Bone Medline Unite L16mm Od3.5mm Foot Ankle Nonlock - [id number] Implanted:Qty: 1 on 06/02/2019 by Zoey Sexton MD at [facility] Right: Foot [employer] Inc [id number] / / [employer] Inc [id number] Screw Bone Medline Unite L18mm Od3.5mm Foot Ankle Nonlock - [id number] Implanted:Qty: 1 on 06/02/2019 by Zoey Sexton MD at [facility] Right: Foot [employer] Inc [id number] / / Med[employer] Inc [id number] Screw Bone Medline Unite L20mm Od3.5mm Foot Ankle Nonlock - [id number] Implanted:Qty: 2 on 06/02/2019 by Zoey Sexton MD at [facility] Right: Foot [employer] Inc [id number] / / [employer] [employer] Triathlon Cruciate Retain Bead Knee Left 5 Component Femoral Pa 5517-F-501 - [id number] Implanted:Qty: 1 on 04/24/2024 by Zbigniew Noel MD at [facility] [employer] [id number] 02/27/2029 5517-F-5 01 / / [id number] [employer] Triathlon Knee 6 Baseplate Tibial Tritanium 5536-B-600 - [id number] Implanted:Qty: 1 on 04/24/2024 by Zbigniew Noel MD at [facility] [employer] [id number] 11/08/2028 5536-B-6 00 / / [id number] [employer] Insert Tibial Triathlon 6 H11mm Knee Bearing Condylar Stabilize Sterile 8764-W-169-E - [id number] Implanted:Qty: 1 on 04/24/2024 by Zbigniew Noel MD at [facility] [id number] 12/19/2028 [id number] 11-E / / [id number] Explanted Type Area Pharmacist Apprentice Device Identifier Shelf Expiration Date Model / Serial / Lot [employer] [id number] Anne .45in 9in 1 [place] [employer] Fixation - S0 - [id number] Explanted:Qty: 1 on 08/06/2020 by Zoey Sexton MD at [facility][1] Wire [employer] [id number] S / 0 / Description:Provisional fixa tion [employer] [id number] Anne .062in 9in 1 [employer] Wire Fixation - [id number] Explanted:Qty: 1 on 06/28/2018 at [facility][1] Right: Foot [employer] [id number] / / Description:Provisional fixa tion [employer] [id number] Anne .062in 9in 1 [employer] Sm[employer] Wire Fixation - [id number] Explanted:Qty: 1 on 06/28/2018 at [facility][1] Right: Foot [employer] [id number] / / Description:Provisional fixa tion [employer] [id number] Anne .062in 9in 1 [employer] Sm[employer] Wire Fixation - [id number] Explanted:Qty: 1 on 06/28/2018 at [facility][1] Right: Foot [employer] [id number] / / Description:Provisional fixa tion Screw Explanted:Qty: 5 on 08/06/2020 by Zoey Sexton MD at [facility][1] Other / 0 / Plate Explanted:Qty: 1 on 08/06/2020 by Drew Espinosa MD at [facility] Other / 0 / Procedures Procedure Name Priority Date/Time Associated Diagnosis Comments EGFR Routine 10/18/2024 10:10 AM CDT High risk medications (not anticoagulants) long-term use BASIC METABOLIC PANEL Routine 10/18/2024 10:10 AM CDT High risk medications (not anticoagulants) long-term use POCT GLUCOSE DEVICE Routine 10/16/2024 3 :20 PM CDT CORONARY OCT, 1ST VESSEL Routine 10/16/2024 2:35 PM CDT Coronary artery disease involving nansemond indian tribe heart without angina pectoris, unspecified vessel or lesion type CORONARY FLOW VELOCITY (CFR) / INSTATANEOUS FLOW VELOCITY (IFR), 1ST VESSEL Routine 10/16/2024 2:35 PM CDT Coronary artery disease involving nansemond indian tribe heart without angina pectoris, unspecified vessel or lesion type RIGHT CORONARY ANGIOGRAPHY Routine 10/16/2024 2:35 PM CDT Coronary artery disease involving nansemond indian tribe heart without angina pectoris, unspecified vessel or [...] Routine) 10/04/2024 2:41 PM CDT Atherosclerosis 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 PRO B-TYPE NATRIURETIC PEPTIDE Routine 10/03/2024 11:50 AM CDT Coronary artery disease involving nansemond indian tribe coronary artery of nansemond indian tribe heart without angina pectoris BASIC METABOLIC PANEL Routine 10/03/2024 11:50 AM CDT Coronary artery disease involving nansemond indian tribe coronary artery of nansemond indian tribe heart without angina pectoris CBC WITH AUTO DIFFERENTIAL Routine 10/03/2024 11:50 AM CDT Coronary artery disease involving nansemond indian tribe coronary artery of nansemond indian tribe heart without angina pectoris TRANSTHORACIC ECHO (TTE) COMPLETE W DOPPLER/CF W CONTRAST Routine 10/03/2024 10:29 AM CDT Cardiomyopathy, ischemic VL US ARTERIAL DUPLEX LOWER EXTREMITY BILATERAL Schedule Routine, Read Routine (OP Routine) 09/05/2024 10:30 AM CDT Atherosclerosis 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 US SANTIAGO Schedule Routine, Read Routine (OP Routine) 09/05/2024 10:30 AM CDT Atherosclerosis 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 US DUPLEX SCAN AORTA, IVC ILIAC COMPLETE Schedule Routine, Read Routine (OP Routine) 09/05/2024 10:30 AM CDT Atherosclerosis 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 Other specified symptoms and signs involving the circulatory and respiratory systems POCT HEMOGLOBIN A1C Routine 09/04/2024 10:38 AM CDT Diabetes mellitus type II, non insulin dependent (HCC) PAIN MGMT IMAGING SHOULDER, HIP, KNEE JOINT/BURSA INJ BILATERAL Schedule Routine, Read Routine (OP Routine) 08/10/2024 11:[address]ANDSCAPE ARCHITECT Greater trochanteric bursitis of both hips CTA ABDOMINAL AORTA AND BILATERAL ILIOFEMORAL RUNOFF Schedule Routine, Read Routine (OP Routine) 09/27/2023 11:27 AM CDT Claudication in peripheral vascular disease POCT LIPID PANEL Routine 09/21/2023 9:27 AM CDT Mixed hyperlipidemia PSA SCREEN Routine 06/17/2023 10:[address] LANDSCAPE ARCHITECT Prostate cancer screening COLONOSCOPY 01/01/2021 12:16 PM [...] BLOOD ORDERABLES F inal Result [facility] [address] Department [place] [address] * Basic metabolic panel (10/18/2024 10:10 AM CDT) Sodium 137 135 - 145 mmol/L Potassium, pl 4.3 3.3 - 4.9 mmol/L [facility] Chloride 101 97 - 110 mmol/L [facility] CO2 22 22 - 32 mmol/L CERNER Anion gap 14 2 - 15 mmol/L CERNER BUN 18 6 - 25 mg/dL [facility] Creatinine 1.14 0.80 - 1.30 mg/dL [facility] Glucose 130 70 - 199 mg/dL [facility] Comment: Interpretive Data Fasting glucose >/= [...] 2022. Calcium 10.0 8.5 - 10.3 mg/dL [facility] Blood 10/18/2024 10:1 0 AM CDT 10/18/2024 3:54 PM CDT Rigo Carroll MD LAB BLOOD ORDERABLES F inal Result [facility] [address] [facility] Department [place] [address] * POCT glucose (10/16/2024 3:20 PM CDT) [facility] Signature Glucose, POC 95 70 - 199 mg/dL Blood 10/16/2024 3:20 PM CDT 10/16/2024 3:20 PM CDT Clifford Sandy MD LAB POCT ORDERABLES - DEVICE Final Result [facility] Department [place] [address] * RIGHT CORONARY ANGIOGRAPHY, CORONARY FLOW VELOCITY [...] and OM2 Known atretic KAUR to LAD FRANCHISE SPECIALIST of the mid RCA THERAPEUTIC RECOMMENDATIONS: [...] result were not included. Cardiovascular Procedure Center [facility] [address], [address] [place] [id number] CORONARY AND GRAFT REPORT Patient: Vicky Youssef : 1955 MR number: [id number] Date of Service: 10/16/2024 Music Typographer: Clifford Sandy MD Fellow: Salvador Arita MD and Madalyn Reynaga MD Referring physician: Rigo Carroll MD INDICATION: worsening LV function, dyspnea PATIENT CLINICAL PROFILE: Vicky Youssef is a 69 y.o. male with a history of CABG s/p KAUR-LAD (atretic), SVG-Ramus/high OM, SVG-OM2, PCI to LM-LAD with a 4.0 mm Al [place] SHEMAR, mild LV dysfunction, who is presenting with worsening LV dysfunction and some dyspnea on exertion. PROCEDURE: The risks, benefits and alternatives of the procedures and moderate sedation were explained to the patient and informed consent was obtained. The patient was brought to the laboratory administrative director and placed on the table. Bilateral groins were prepped and draped in the usual sterile fashion. Ultrasound guidance was used to obtain access. I provided direct [id number] moderate conscious sedation which administered by independent [...] The RCA has slow flow and a FRANCHISE SPECIALIST in the mid segment which is [...] 231(H) 123 - 168 sec POC Performer [id number] [facility] POC Device Number [id number] [facility] Blood 10/16/2024 2:30 PM CDT 10/16/2024 2:30 PM CDT Clifford Sandy MD LAB POCT ORDERABLES - DEVICE Final Result [facility] Department [place] [address] * (ABNORMAL) POCT Activated clotting time, low range (10/16/2024 2:11 PM CDT) ACT 269(H) 123 - 168 sec POC Performer [id number] [facility] POC Device Number [id number] [facility] Blood 10/16/2024 2:11 PM CDT 10/16/2024 2:11 PM CDT Clifford Sandy MD LAB POCT ORDERABLES - DEVICE Final Result [facility] Department [place] [address] * CBC without differential (10/16/2024 12:35 PM CDT) WBC See Comment 3.80 - 9.90 Comment:Credited, specimen c lotted. Hgb See Comment 13.0 - 17.5 [facility] Comment:Credited, specimen c lotted. Hct See Comment 38.9 - 50.3 [facility] Comment:Credited, specimen c lotted. Plt See Comment 150 - 400 [facility] Comment:Credited, specimen c lotted. MPV See Comment 9.1 - 12.3 [facility] Comment:Credited, specimen c lotted. RBC See Comment 4.30 - 5.80 [facility] Comment:Credited, specimen c lotted. MCV See Comment 81.3 - 96.4 [facility] Comment:Credited, specimen c lotted. MCH See Comment 27.1 - 33.3 [facility] Comment:Credited, specimen c lotted. MCHC See Comment 32.3 - 35.7 [facility] Comment:Credited, specimen c lotted. RDW CV See Comment 11.1 - 14.9 [facility] Comment:Credited, specimen c lotted. RDW SD See Comment 35.7 - 48.1 [facility] Comment:Credited, specimen c lotted. NRBC abs See Comment 0.00 - 0.01 [facility] Comment:Credited, specimen c lotted. Blood 10/16/2024 12:3 5 PM CDT 10/16/2024 2:05 PM CDT [facility]ative [facility] - 10/16/2024 2:33 PM CDT To be drawn after hydration bolus complete Clifford Sandy MD LAB BLOOD ORDERABLES Final Result Performing Organization Address [facility] Co de Phone Number [facility] [place] [address] * POCT glucose (10/16/2024 9:19 AM CDT) Pathologist [facility] Glucose, POC 118 70 - 199 mg/dL Blood 10/16/2024 9:19 AM CDT 10/16/2024 9:19 AM CDT Clifford Sandy MD LAB POCT ORDERABLES - DEVICE Final Result Performing Organization Address [facility] de Phone Number [facility] [place] [address] * ECG 12 lead (10/16/2024 8:32 AM CDT) [facility] Ventricular Rate EKG/Min 70 BPM [facility] Atrial Rate 70 BPM [facility] ME-Interval (MSEC) 304 ms [facility] QRS-Interval (MSEC) 132 ms [facility] QT-Interval (MSEC) 374 ms [facility] QTc 403 ms [facility] P Natalia 2 degrees [facility] R Natalia 1 degrees [facility] T Natalia 252 degrees [facility] Diagnosis Atrial-paced rhythm with prolonged AV conduction Left ventricular hypertrophy with QRS widening and repolarization abnormality ( Sokolow-Pereira , [place] product ) Cannot rule out Septal infarct , age undetermined Abnormal ECG When compared with ECG of 25-NOV-2022 12:06, no significant change Confirmed by ERNESTINE TAVEARS M.D ([id number]) on 10/17/2024 3:04:55 PM [facility] 10/16/2024 8:32 AM CDT 10/17/2024 3:04 PM CDT Clifford Sandy MD ECG ORDERABLES Lilia l Result Performing Organization Address [facility] Co de Phone Number [facility] * DEVICE CHECK - REMOTE (10/08/2024 3:10 AM CDT) Anatomical Region Laterality Modality Other 10/08/2024 3:10 AM CDT Narrative 10/11/2024 11:10 AM CDT Interpretation Summary: Battery and Leads (BL) Normal parameters noted on battery and lead(s) --- 35% remaining longevity (implanted 2014). Lead impedance, sensing, and threshold trends stable and appropriate. Presenting Rhythm (ME) Atrial Pacing-Ventricular Pacing (AP-PATIENT INTAKE COORDINATOR) --- AP/PATIENT INTAKE COORDINATOR 70s. Arrhythmic events (AE) No new arrhythmic [...] and threshold trends stableand appropriate. Presenting Rhythm (ME) Atrial Pacing-Ventricular Pacing (AP-PATIENT INTAKE COORDINATOR) --- AP/PATIENT INTAKE COORDINATOR 70s. Arrhythmic events (AE) No new arrhythmic [...] Study Date: 10/04/2024 1:37:00 PM Gender: M Logistics Director: Leandra Frazier RN/RVT Ref Provider: IVET MONTANA Quality: Adequate Order Provider: IVET MONTANA PROCEDURES: Arterial Report: Bilateral lower extremity arterial Doppler exam at rest and with exercise. INDICATIONS: I70.213 Atherosclerosis of nansemond indian tribe arteries of extremities with intermittent claudication, bilateral legs. HISTORY: Claudication lower extremities L>R. HTN/HLD/DM/CAD/PREV SMOKER. COMPARISONS: The previous exam was completed on 09/05/2024. Compared to prior RT PT/DP .89/.53 LT PT/DP .92/.74. MEASUREMENTS: Right Value Left Value Rt Brachial Pressure 158 mmHg Lt Brachial Pressure 151 mmHg Rt SUPERVISOR GROVE Pressure 169 mmHg Lt SUPERVISOR GROVE Pressure 163 mmHg Rt DPA Pressure 164 [...] Study Date: 10/04/2024 1:37:00 PM Gender: M Logistics Director: Leandra Frazier RN/RVT Ref Provider: IVET MONTANA Quality: Adequate Order Provider: IVET MONTANA PROCEDURES: Arterial Report: Bilateral lower extremity arterial Doppler exam at rest and withexercise. INDICATIONS: I70.213 Atherosclerosis of nansemond indian tribe arteries of extremities withintermittent claudication, bilateral legs. HISTORY: Claudication lower extremities L>R. HTN/HLD/DM/CAD/PREV SMOKER. COMPARISONS: The previous exam was completed on 09/05/2024. Compared to prior RT PT/DP .89/.53 LT PT/DP .92/.74. MEASUREMENTS: Right Value Left Value Rt Brachial Pressure 158 mmHg Lt Brachial Pressure 151 mmHg Rt SUPERVISOR GROVE Pressure 169 mmHg Lt SUPERVISOR GROVE Pressure 163 mmHg Rt DPA Pressure 164 [...] MD LAB BLOOD ORDERABLES F inal Result [facility] Department [place] [address] * CBC with auto differential (10/03/2024 11:50 [...] MD LAB BLOOD ORDERABLES F inal Result [facility] * Basic metabolic panel (10/03/2024 11:50 AM CDT) [facility] Glucose 97 64 - 99 mg/dL [...] AM CDT Narrative 10/03/2024 11:12 AM CDT [facility] Cardiac [place] [address] Transthoracic Echocardiographic Report Patient Name: VICKY YOUSSEF D : 1955 (69y 6m) Gender: M Study Date: 10/03/2024 09:38:56 AM Ht(Inch): 71 Wt(Lb): 210.98 BSA: 2.19 Logistics Director: Soco Marcano RDCS Location: [facility] Order Provider: RIGO CARROLL Heart [...] LA Length 4C 5.23 cm AI Decel [place] 2.86 m/s2 LA Length 2C 4.36 cm [...] Procedure Note Rigo Carroll MD - 10/03/2024 [facility] Card[facility] [place] [address] Transthoracic Echocardiographic Report Patient Name: VICKY YOUSSEF D : 1955 (69y 6m) Gender: M Study Date: 10/03/2024 09:38:56 AM Ht(Inch): 71 Wt(Lb): 210.98 BSA: 2.19 Logistics Director: Soco Marcano RDCS Location: [facility] Order Provider:RIGO CARROLL Heart Rate: [...] [ -25.0 - -18.0 ] AI Decel Eyze4572.25 sec LA Length 4C 5.23 cm AI Decel [place]2.86 m/s2 LA Length 2C 4.36 cm AI FCU803.99 msec LA Volume BP 50.69 ml Lat E` Vel4.0 cm/sec [ 10.0 - 25.0 ] LA Volume Index 23.15 ml/m2 [ 16.00 - 34.00 ] RV S`7.62 cm/sec RV Base Dimen 2D 3.9 cm [ 2.5 - 4.2 ] PV Peak Vel0.8 m/s [ 0.4 - 0.8 ] TAPSE 0.94 cm [ 1.71 - 5.00 ] PV Peak PG2.56 mmHg RA Ybfxfm69.65 ml RA Volume Index17.19 ml/m2 IVC Diam1.47 [...] [facility] [address] [address] Lower Extremity Arterial Duplex Report Patient Name: VICKY YOUSSEFGriselda : 1955 (69y 5m) Gender: M Study Date: 09/05/2024 09:33:41 AM Ht(Inch): Wt(Lb): BSA: Logistics Director: CORI Location: [facility] Order Provider: IVET MONTANA Quality: Adequate Ref Provider: IVET MONTANA PROCEDURES: Arterial Report: A non-invasive vascular imaging study of the bilateral lower extremity arteries was performed using B-mode ultrasound, color flow, and spectral Doppler. INDICATIONS: R>L claudication, remote hx BCIA stents. HISTORY: HTN. HLD. DM. CAD-HI S/P stent/CABG. Afib. Pacemaker. Former smoker. COMPARISONS: Prior CTA on 09/27/23. MEASUREMENTS: Right Value Left Value Rt CIGAR PACKING EXAMINER Dst PSV 77.00 cm/sec Lt CIGAR PACKING EXAMINER Dst PSV 87.00 cm/sec Rt Profunda Prx [...] 09/06/2024 1:48:05 PM CDT Procedure Note Ivet oMntana MD - 09/06/2024 [facility] [place] [address] Lower Extremity Arterial Duplex Report Patient Name: VICKY YOUSSEF Griselda : 1955 (69y 5m) Gender: M Study Date: 09/05/2024 09:33:41 AM Ht(Inch): Wt(Lb): BSA: Logistics Director: CORI Location: [facility] Order Provider: IVET MONTANA Quality: Adequate Ref Provider: IVET MONTANA PROCEDURES: Arterial Report: A non-invasive vascular imaging study of the bilaterallower extremity arteries was performed using B-mode ultrasound, color flow, and spectralDoppler. INDICATIONS: R>L claudication, remote hx BCIA stents. HISTORY: HTN. HLD. DM. CAD-HI S/P stent/CABG. Afib. Pacemaker. Former smoker. COMPARISONS: Prior CTA on 09/27/23. MEASUREMENTS: Right Value Left Value Rt CIGAR PACKING EXAMINER Dst PSV 77.00 cm/sec Lt CIGAR PACKING EXAMINER Dst PSV 87.00 cm/sec Rt Profunda Prx [...] [facility] [address] [address] Lower Extremity Arterial Doppler Report Patient Name: VICKY YOUSSEF D : 1955 Study Date: 09/05/2024 8:50:00 AM Gender: M Logistics Director: Maureen Vásquez RVT Location: [facility] Ref Provider: IVET MONTANA Quality: Adequate Order Provider: IVET MONTANA PROCEDURES: Arterial Report: Ankle - Brachial Index Doppler exam. INDICATIONS: Remote hx BCIA stents; R>L claudication. HISTORY: HTN. HLD. DM. CAD-HI S/P stent/CABG. Afib. Pacemaker. Former smoker. COMPARISONS: The previous exam was completed on 11/19/23. Compared to prior there is disease progression at bilateral dorsalis pedis arteries. MEASUREMENTS: Right Value Left Value Rt Brachial Pressure 159 mmHg Lt Brachial Pressure 146 mmHg Rt SUPERVISOR GROVE Pressure 142 mmHg Lt SUPERVISOR GROVE Pressure 147 mmHg Rt DPA Pressure 84 [...] MD - 09/06/2024 [facility] [address] [place] [address] Lower Extremity Arterial Doppler Report Patient Name: VICKY YOUSSEF Griselda : 1955 Study Date: 09/05/2024 8:50:00 AM Gender: M Logistics Director: Maureen Vásquez RVT Location: [facility] Ref Provider: IVET MONTANA Quality: Adequate Order Provider: IVET MONTANA PROCEDURES: Arterial Report: Ankle - Brachial Index Doppler exam. INDICATIONS: Remote hx BCIA stents; R>L claudication. HISTORY: HTN. HLD. DM. CAD-HI S/P stent/CABG. Afib. Pacemaker. Former smoker. COMPARISONS: The previous exam was completed on 11/19/23. Compared to prior there is disease progression at bilateral dorsalis pedisarteries. MEASUREMENTS: Right Value Left Value Rt Brachial Pressure 159 mmHg Lt Brachial Pressure 146 mmHg Rt SUPERVISOR GROVE Pressure 142 mmHg Lt SUPERVISOR GROVE Pressure 147 mmHg Rt DPA Pressure 84 [...] [facility] [address] [address] Abdominal Aortic Duplex Ultrasound Report Patient Name: KRISTINAVICKY D : 1955 Study Date: 09/05/2024 8:52:47 AM Gender: M Logistics Director: Location: [facility] Ref Provider: IVET MONTANA Quality: [...] MD - 09/06/2024 [facility] [address] [place] [id number] Abdominal Aortic Duplex Ultrasound Report Patient Name: VICKY YOUSSEFGriselda : 1955 Study Date: 09/05/2024 8:52:47 AM Gender: M Logistics Director: Location: [facility] Provider: IVET MONTANA Quality: Adequate Order Provider: [...] 09/06/2024 1:47:06 PM CDT Ivet Montana MD [facility] US PROCEDURES Final Result * (ABNORMAL) POCT hemoglobin A1c (09/04/2024 10:38 AM CDT) Hemoglobin A1C, POC 6.4 4.0 - 5.6 % Blood 09/04/2024 10:3 8 AM CDT Perry Romero MD POINT OF CARE TEST ORDERABLES Final Result * Imaging Shoulder, Hip, Knee Joint/Bursa INJ INJ Bilateral () (08/10/2024 11:[address]ANDSCAPE ARCHITECT) Narrative [facility] - 08/10/2024 11:[address]CHIT[address] The images from this study are not [...] POCT lipid panel (09/21/2023 9:27 AM CDT) [facility] Cholesterol, POC <100 mg/dL Triglycerides, POC 214 mg/dL Capillary blood 09/21/2023 9 :27 AM CDT Perry Romero MD POINT OF CARE TEST ORDERABLES Final Result * PSA screen (06/17/2023 10:[address]SC[address] ARCHITECT) Pathologist [facility] PSA 0.4 0.0 - 4.0 ng/mL [facility] - 01 Comment: Shahbaz ECLIA methodology. According to the [place] [employer], Serum PSA should decrease and [...] malignant disease. Blood 06/17/2023 10:[address]IT[address] 06/17/2023 Narrative [facility] - 06/18/2023 6:[address]AND[address] ARCHITECT Performed at: - [facility] [address] [id number] Cleaner Greaser: Edgar Menard PhD, Phone: [phone] us Mamie Rose INTERIOR ASSEMBLIES INSTALLER LAB BLOOD ORDERABLES Fin al Result [facility] - 01 * COLONOSCOPY (01/01/2021 12:16 PM CDT) Anatomical Region Laterality Modality Other Narrative Procedure Note Emily Zeng MD - 01/01/2021 12:16 PM CDT [facility] Patient Name: Vicky Youssef Procedure Date: 01/01/2021 12:16 PM Date of : 1955 Admit Type: Outpatient Age: 65 Gender: Male Attending MD: Huy Reed Room: [facility] ENDOSCOPY RO[facility] 3 Note Status: Finalized Procedure: [...] passed under direct vision.The CF [id number] endoscope was introducedthrough the anus and advanced to the cecum, identified by appendiceal orifice and ileocecal valve. The colonoscopy was performed without difficulty. The patient tolerated the procedure well. The qualityof the bowel preparation was evaluated using the BBPS ([place] Bowel Preparation Scale) with scores of:Right Colon [...] On: 01/01/2021 12:16 PM Recognized by the [place] [employer] for promoting quality in endoscopy us Emily Zeng MD ENDOSCOPY PROCEDUR ES Final Result from Last 3 Months or Most Recently Relevant to Health Maintenance Insurance MEDICARE BLUE [employer]OSS MEDICARE SUPPLEMENT MEDICARE [facility] MEDICARE MEDICARE [facility] MEDICARE SUPPLEMENT MEDICARE [employer] MEDICARE SUPPLEMENT MEDICARE [facility] MEDICARE SUPPLEMENT Advance Directives For more information, please contact: [phone] * Full Code (Latest Code Status on [...] 4:34 PM 05/02/2021 4:45 PM Care Teams Under Ground Miner Relationship Specialty Start Date End Date Perry Romero MD PCP - General Internal Medicine 02/23/20 Rigo Carroll MD Instrument Lens Grinder Cardiology 05/23/19 Love Jones, PT Physical Therapist Physical Therapy 09/28/22 Arthur Bateman MD [address] [address] Referring Physician Anesthesiology 09/28/22 Karl Cha MD [address] [place] [address] Referring Physician Orthopedic Surgery 11/24/23
== END 2024-10-31 14:52 | disposition home or self-care (01) ==
PROVIDERS: Emergency Provider Physician Assistant; PCP Internal Medicine
DX: S90.31XA Contusion of right foot, initial encounter (principal); I25.2 Old myocardial infarction; I99.9 Unspecified disorder of circulatory system; I51.9 Heart disease, unspecified; M47.816 Spondylosis without myelopathy or radiculopathy, lumbar region; M17.0 Bilateral primary osteoarthritis of knee; Z87.891 Personal history of nicotine dependence; Z95.5 Presence of coronary angioplasty implant and graft; Z95.0 Presence of cardiac pacemaker; Z95.1 Presence of aortocoronary bypass graft; Z79.82 Long term (current) use of aspirin; Z79.899 Other long term (current) drug therapy; Z79.02 Long term (current) use of antithrombotics/antiplatelets; W55.12XA Struck by horse, initial encounter
CPT/HCPCS: 73630; 99283; A9270

== ENCOUNTER 2024-11-02 09:11 | Outpatient (CLI) | payer MEDICARE, SELFPAY ==
--- OUTSIDE RECORDS SUMMARY | 2024-11-02 09:21 | XMS_ITS ---
Author Organization [facility] Address [address] [place] [address] Care Team Providers Care Hair Stylist Name Role Phone Nick QUINONES, Perry Primary Care Provider [facility] [phone] REASON FOR VISIT fitting Encounters Encounter Location Date Provider Diagnosis [facility] [address] [address] 10/26/2023 Rio Griffith Plan Of Treatment No Information Progress Notes * Deacon YOUSSEFDOB: (69 yo M)Acc No.[id number]:10/26/2023 Progress Notes Patient: Deacon TORREZ Provider: Triston Griffith DPM :1955 A ge:68 Y S ex:Male Date:10/26/2023 Address:[address] [place], [place] [address] Pcp:Perry Romero MD Subjective: * Chief Complaints: * 1 . Fitting. * Medical History: Objective: * Vitals: Assessment: Plan: * Treatment: * Images: * Electronic signature of Rio Griffith DPM on 11/02/2024 at 09:21 AM CDT Sign off status: Pending * Provider: Triston Griffith DPM Date: 10/26/2023 Generated for Printi ng/Faxing/eTransmitting on: 11/02/2024 09:21 AM CDT
--- OUTSIDE RECORDS SUMMARY | 2024-11-02 09:21 | XMS_ITS | Encounter Summary ---
Author Organization [facility] Address [address] [place] [address] Phone Care Team Providers Care Supervisor Electrolytic Tinning Name Role Phone Leonidas Carroll MD Unavailable [phone] Perry Romero MD Primary Care Provider Love Jones PT Unavailable Unavailab Arthur Law MD Unavailable Karl Cha MD Unavailable [phone] Encounter Details Date Type Department Care Team (Late st Contact Info) Description 10/03/2024 Results Follow-Up [facility] Cardiology [address] [facility] Advanced Medicine 8th [place] [address] [place] [address] Leonidas Carroll MD [address] [facility] [address] [place], [place] [id number] CBC with auto differential, Basic metabolic panel [...] often do you attend chur ch or episcopalian services? 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 Minimize further functional decline 2. Maximize quality of life 3. Control pain Strategies: - Activity/exercise program recommendation - Conservative stepwise pain medicine strategy with multi-disciplinary approach - Recommend healthy lifestyle strategies and compensatory methods as needed documented as of this encounter Visit Diagnoses Not on filedocumented in this encounter Care Teams Supervisor Electrolytic Tinning Relationship Specialty Start Date End Date Perry Romero MD PCP - General Internal Medicine 02/23/20 Leonidas Carroll MD Fruit And Vegetable Classer Cardiology 05/23/19 Love Jones, PT Physical Therapist Physical Therapy 09/28/22 Arthur Bateman MD [address] [address] Referring Physician Anesthesiology 09/28/22 Karl Cha MD [address] [place] [address] Referring Physician Orthopedic Surgery 11/24/23 documented as of this encounter
--- OUTSIDE RECORDS SUMMARY | 2024-11-02 09:21 | XMS_ITS | Encounter Summary ---
Author Organization [facility] Address [address] [place] [address] Phone Care Team Providers Care Chemistry Professor Name Role Phone Leonidas Carroll MD Unavailable [phone] Perry Romero MD Primary Care Provider Love Jones PT Unavailable Unavailab Arthur Law MD Unavailable Karl Cha MD Unavailable [phone] Encounter Details Date Type Department Care Team (Late st Contact Info) Description 10/18/2024 Results Follow-Up [facility] Cardiology [address] [facility] Advanced Medicine 8th [place] [address] [place] [address] Leonidas Carroll MD [address] [facility] [address] [place] [address] Basic metabolic panel, eGFR Social [...] How often do you attend [facility] or gnosticist services? 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 Gender Identity Not on file Sexual Orientation [...] Chronic Care Management No change(08/10 10:32 AM PIPE FITTER HELPER) No Brissa Muse RN Note: Problem: Chronic [...] hypertension documented in this encounter Care Teams Chemistry Professor Relationship Specialty Start Date End Date Perry Romero MD PCP - General Internal Medicine 02/23/20 Leonidas Carroll MD Outdoor Adventure Instructor Cardiology 05/23/19 Love Jones, PT Physical Therapist Physical Therapy 09/28/22 Arthur Bateman MD [address] [address] Referring Physician Anesthesiology 09/28/22 Karl Cha MD [address] [place] [address] Referring Physician Orthopedic Surgery 11/24/23 documented as of this encounter
--- OUTSIDE RECORDS SUMMARY | 2024-11-02 09:21 | XMS_ITS ---
Author Organization [facility] [employer] Address [address] [facility] [address] [address] Care Team Providers Care Metal Model Maker Name Role Phone Perry Romero MD Primary Care Provider Unavailab La Navarro Unavailable [phone] Esa Flores Unavailable [phone] REASON FOR VISIT MCI Social History Sex Assigned At : Social History Observation Description Sex Assigned At Male Encounters Encounter Location Date Provider Diagnosis [facility] [employer] [facility] [address] [facility] [address] [address] 09/11/2024 Esa Flores Plan Of Treatment Next Appt Details Provider Name:[place] , 01/08/2025 09:45:00 AM, [address], [facility] [address], [place], [address], Progress Notes * VICKY ACEVEDODOB: (69 yo M)Acc No.[id number]:09/11/2024 Patient: VICKY TORREZ Provider: Basil FLORES MD :1955 A ge:69 Y S ex:Male Date:09/11/2024 Address:[address] [facility] Pcp:Perry Romero MD Subjective: * Chief [...] Electronic signature of Byron Flores MD on 11/02/2024 at 09:21 AM CDT Sign off status: Pending * Provider: Basil FLORES MD Date: 09/11/2024 Generated for Humberto hayes/Vanda/Lorenzoitting on: 11/02/2024 09:21 AM CDT
--- OUTSIDE RECORDS SUMMARY | 2024-11-02 09:21 | XMS_ITS | Encounter Summary ---
Author Organization [facility] Address [address] [place] [address] Phone Care Team Providers Care Phlebotomy Manager Name Role Phone Leonidas Carroll MD Unavailable [phone] Perry Romero MD Primary Care Provider Love Jones PT Unavailable Unavailab Arthur Law MD Unavailable Karl Cha MD Unavailable [phone] Encounter Details Date Type Department Care Team (Late st Contact Info) Description 10/03/2024 Results Follow-Up [facility] Cardiology [address] [facility] Advanced Medicine 8th [place] [address] [place] [address] Leonidas Carroll MD [address] [facility] [address] [place] [address] Pro B-type natriuretic peptide Social [...] week 05/02/2021 How often do you attend [facility] or sabianist services? 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 He can be reached at [phone]. * Result Encounter Note - Leonidas Carroll MD - 10/03/2024 4:31 PM CDT Tell patient normal results. documented in this encounter Plan of Treatment Not on file documented as of this encounter Goals Goal Patient Goal Type Associated Problems Recent Progress Patient-Stated? Author CCM Chronic Pain Care Plan Chronic Care Management No change(08/10 10:32 AM CAKE PRESS OPERATOR) No Brissa Muse RN Note: Problem: Chronic Pain Goals: 1. Minimize further functional decline 2. Maximize quality of life 3. Control pain Strategies: - Activity/exercise program recommendation - Conservative stepwise pain medicine strategy with multi-disciplinary approach - Recommend healthy lifestyle strategies and compensatory methods as needed documented as of this encounter Visit Diagnoses Not on filedocumented in this encounter Care Teams Phlebotomy Manager Relationship Specialty Start Date End Date Perry Romero MD PCP - General Internal Medicine 02/23/20 Leonidas Carroll MD Quality Control Manager Cardiology 05/23/19 Love Jones PT Physical Therapist Physical Therapy 09/28/22 Arthur Bateman MD [address] [address] Referring Physician Anesthesiology 09/28/22 Karl Cha MD [address] [place] [address] Referring Physician Orthopedic Surgery 11/24/23 documented as of this encounter
--- OUTSIDE RECORDS SUMMARY | 2024-11-02 09:21 | XMS_ITS | Encounter Summary ---
Author Organization [facility] Address [address] [place] [address] Phone Care Team Providers Care Senior Education Specialist Name Role Phone Leonidas Carroll MD Unavailable [phone] Perry Romero MD Primary Care Provider [phone] Love Jones PT Unavailable Unavailab Arthur Law MD Unavailable Karl Cha MD Unavailable [phone] Encounter Details Date Type Department Care Team (Latest Contact Info) Description 10/16/2024 Results Follow-Up [facility] Cardiology [address] [facility] Advanced Medicine 8th [place] [address] [place] [address] Leonidas Carroll MD [address] [facility] [address] [place] [address] Cardiac Catheterization Social History Tobacco [...] 05/02/2021 How often do you attend [facility] or restorationist services? 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 Never 10/16/2024 9:08 AM CANDACET Yair Ruiz RN documented as of this encounter Plan of Treatment Not on file documented as of this encounter Goals Goal Patient Goal Type Associated Problems Recent Progress Patient-Stated? Author CCM Chronic Pain Care Plan Chronic Care Management No change(08/10 10:32 AM CROP RESEARCH SCIENTIST) No Brissa Muse RN Note: Problem: Chronic [...] LAB BLOOD ORDERABLES F inal Result [facility] [address] [place] [address] documented in this encounter Visit Diagnoses Diagnosis High risk medications (not anticoagulants) long-term use- Primary Encounter for long-term (current) use of other medications documented in this encounter Care Teams Senior Education Specialist Relationship Specialty Start Date End Date Perry Romero MD PCP - General Internal Medicine 02/23/20 Leonidas Carroll MD Nurse Discharge Planner Cardiology 05/23/19 Love Jones, PT Physical Therapist Physical Therapy 09/28/22 Arthur Bateman MD [address] [address] Referring Physician Anesthesiology 09/28/22 aKrl Cha MD [address] [place] [address] Referring Physician Orthopedic Surgery 11/24/23 documented as of this encounter
--- OUTSIDE RECORDS SUMMARY | 2024-11-02 09:21 | XMS_ITS | Encounter Summary ---
Author Organization [facility] Address [address] [place] [address] Care Team Providers Care Airplane Captain Name Role Phone Leonidas Carroll MD Unavailable [phone] Perry Romero MD Primary Care Provider [phone] Love Jones PT Unavailable Unavailab Arthur Law MD Unavailable Karl Cha MD Unavailable [phone] Encounter Details Date Type Department Care Team (Late st Contact Info) Description 07/08/2023 Telephone [facility] [address] [facility] Advanced Medicine [address] [place], [place] [id number] Arthur Bateman MD [address] [facility] [address] [place] [address] Social History Tobacco Use Types Packs/Day Years [...] attend [facility] or mormon services? 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 Author CCM Chronic Pain Care Plan Chronic Care Management No change(08/10 10:32 AM PRINTED CIRCUIT BOARD ASSEMBLER) No Brissa Muse RN Note: Problem: Chronic Pain Goals: 1. Minimize further functional decline 2. Maximize quality of life 3. Control pain Strategies: - Activity/exercise program recommendation - Conservative stepwise pain medicine strategy with multi-disciplinary approach - Recommend healthy lifestyle strategies and compensatory methods as needed documented as of this encounter Visit Diagnoses Not on filedocumented in this encounter Care Teams Airplane Captain Relationship Specialty Start Date End Date Perry Romero MD PCP - General Internal Medicine 02/23/20 Leonidas Carroll MD Material Planning Analyst Cardiology 05/23/19 Love Jones, PT Physical Therapist Physical Therapy 09/28/22 Arthur Bateman MD [address] [address] Referring Physician Anesthesiology 09/28/22 Karl Cha MD [address] [place] [address] Referring Physician Orthopedic Surgery 11/24/23 documented as of this encounter
--- OUTSIDE RECORDS SUMMARY | 2024-11-02 09:21 | XMS_ITS | Encounter Summary ---
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
--- OUTSIDE RECORDS SUMMARY | 2024-11-02 09:21 | XMS_ITS | Clinical Summary ---
Author Organization [facility] Address [address] [place] [address] Care Team Providers Care Pilot Supervisor Name Role Phone Tim Sanchez MD Primary Care Provider Source Comments [facility],non-owned Affiliates and Associated Physician Practices is amultiple site organization consisting of ambulatory clinics and hospital sitesin [place], [place], [place] and [place]. This disclosure is being madepursuant to the Care Everywhere program and may not contain all information available regarding this patient. Last updated 18.[facility] Allergies No known active allergies Medications * [...] (11/07/2020): Added automatically from request for surgery [id number] Rosacea 09/18/2020 Achilles tendon contracture, right 07/04/2020 Overview (11/07/2020): Added automatically from request for surgery [id number] Metatarsalgia of right foot 07/04/2020 Overview (11/07/2020): Added automatically from request for surgery [id number] Sesamoiditis 07/04/2020 Overview (11/07/2020): Added automatically from request for surgery [id number] Joint pain 02/28/2020 Overview (11/07/2020): Last Assessment & Plan: Medrol dose pack Tramadol Q6 PRN (use, safety, s/e reviewed) Referral to Pain Management 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 Transferred to [facility], s/p [facility] on 11/22. 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 Gender Identity Not on file Sexual Orientation [...] age to complete this topic Insurance MEDICARE [facility] MEDICARE [facility] Member Subscriber Plan / Payer (Ef fective for All Dates) Name:Vicky Youssef Relation to Subscriber:Self Name:Vicky Youssef Payer ID:[id number] (NAIC) Type:Commercial Address: [address] [place] [id number] SELF PAY NO INSURANCE Member Subscriber Plan / Payer (Ef fective for All Dates) Name:Vicky Youssef Member ID:Not on file Relation to Subscriber:Not on file Name:VICKY YOUSSEF Subscriber ID:Not on file (Home) Address: [address] [place] [address] Payer ID:Not on file Group ID:Not on file Type:Self Pay Address: [place], [place] MEDICARE Care Teams Pilot Supervisor Relationship Specialty Start Date End Date Tim Sanchez MD [address] [place] [address] PCP - General 10/05/17
--- OUTSIDE RECORDS SUMMARY | 2024-11-02 09:21 | XMS_ITS | Encounter Summary ---
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 Gender Identity Not on file Sexual Orientation [...] on filedocumented in this encounter Care Teams Unix Developer Relationship Specialty Start Date End Date Deacon Eisenberg PCP - General 11/22/18 02/22/20 Perry Romero MD PCP - General Internal Medicine 02/23/20 Leonidas Carroll MD Desulphuring Operator Cardiology 05/23/19 Love Jones, PT Physical Therapist Physical Therapy 09/28/22 Arthur Bateman MD [address] [address] Referring Physician Anesthesiology 09/28/22 Karl Cha MD [address] [place] [address] Referring Physician Orthopedic Surgery 11/24/23 documented as of this encounter
--- OUTSIDE RECORDS SUMMARY | 2024-11-02 09:21 | XMS_ITS | Continuity of Care Document ---
Author Organization [facility] Address [address] [place] [address] [address] [place] [address] Phone Care Team Providers Care Polisher Hand Name Role Phone Mary Ellen Dunn Unavailable Unavailable Advance Directives Directive Yes / No Effective Date File Name No Information Encounters Encounter Description Practice Location Reason(s) For Visit Diagnoses Date Provider Providers Copied on Encounter [facility], [address] [place] [address] [address], [place], [place], [id number], [place] tel:[phone] [address] [facility] [place] No Information [address] Mona Hyde. [address] [facility] , [address], [place], [address], [place]. tel:[phone] Family History Family Member Type Diagnosis Age At Onset No Information Payers Payer name Insurance type Covered constitution party ID Authoriza tion(s) No Information Social History [...]
--- OUTSIDE RECORDS SUMMARY | 2024-11-02 09:21 | XMS_ITS | Clinical Summary ---
Author Organization [facility] Address [address] [place] [address] Phone Care Team Providers Care Layer Up Name Role Phone Provider, None Primary Care [...] age to complete this topic Insurance MEDICARE [facility] Care Teams Layer Up Relationship Specialty Start Date End Date Provider, None [place] PCP - General 02/20/20
--- OUTSIDE RECORDS SUMMARY | 2024-11-02 09:22 | XMS_ITS | Encounter Summary ---
Author Organization [facility] Address [address] [place] [address] Phone Care Team Providers Care Senior Ios Developer Name Role Phone Tim Sanchez MD Primary Care Provider [phone] Lina Mcadams MD Primary Care Provide r Deacon Eisenberg DO Primary Care Provider [phone] Leonidas Carroll MD Unavailable [phone] Perry Romero MD Primary Care Provider [phone] Love Jones PT Unavailable Unavailab Arthur Law MD Unavailable Karl Cha MD Unavailable [phone] Encounter Details Date Type Department Care Team (Late st Contact Info) Description 09/10/2015 Orders Only [facility] CAR CLINCONV ProviderHeena MD [address] [place] [address] Social History Tobacco Use Types Packs/Day Years Used Date Smoking Tobacco: Never Assessed Sex and Gender Information Value Date Recorded Sex Assigned at Not on file 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 Gender Identity Not on file Sexual Orientation [...] on filedocumented in this encounter Care Teams Senior Ios Developer Relationship Specialty Start Date End Date Tim Sanchez MD [address] [facility] [address] [place] [address] PCP - General 09/29/16 01/13/18 Lina Mcadams MD [address] [facility] [address] [place] [address] PCP - General 01/14/18 11/21/18 Deacon Eisenberg DO [address] [facility] [address] [place] [address] PCP - General 11/22/18 02/22/20 Perry Romero MD [address] [address] PCP - General Internal Medicine 02/23/20 Leonidas Carroll MD [address] [facility] [address] [place] [address] Transitional Nurse Cardiology 05/23/19 Love Jones, PT Physical Therapist Physical Therapy 09/28/22 Arthur Bateman MD [address] [facility] [address] [place] [address] Referring Physician Anesthesiology 09/28/22 Karl Cha MD [address] [facility] [address] [place] [address] Referring Physician Orthopedic Surgery 11/24/23 documented as of this encounter
--- OUTSIDE RECORDS SUMMARY | 2024-11-02 09:22 | XMS_ITS | Encounter Summary ---
Author Organization [facility] Healthcare Address [address] [place] [address] Care Team Providers Care Scenic Designer Name Role Phone Leonidas Carroll MD Unavailable [phone] Perry Romero MD Primary Care Provider Love Jones PT Unavailable Unavailab Arthur Law MD Unavailable Karl Cha MD Unavailable [phone] Encounter Details Date Type Department Care Team (Late st Contact Info) Description 10/28/[address] [facility] Radiology 1 [place], [place] [id number] Alberto Pack MD PhD [address] [place] [address] Social History Tobacco Use Types Packs/Day Years [...] week 05/02/2021 How often do you attend [facility] or sabianism services? 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 Author CCM Chronic Pain Care Plan Chronic Care Management No change(08/10 10:32 AM CRYSTAL LAPPER) No Brissa Muse, RN Note: Problem: Chronic Pain Goals: 1. Minimize further functional decline 2. Maximize quality of life 3. Control pain Strategies: - Activity/exercise program recommendation - Conservative stepwise pain medicine strategy with multi-disciplinary approach - Recommend healthy lifestyle strategies and compensatory methods as needed documented as of this encounter Visit Diagnoses Not on filedocumented in this encounter Care Teams Scenic Designer Relationship Specialty Start Date End Date Perry Romero MD PCP - General Internal Medicine 02/23/20 Leonidas Carroll MD Instructional Systems Designer Cardiology 05/23/19 Love Jones, PT Physical Therapist Physical Therapy 09/28/22 Arthur Bateman MD [address] [address] Referring Physician Anesthesiology 09/28/22 Karl Cha MD [address] [place] [address] Referring Physician Orthopedic Surgery 11/24/23 documented as of this encounter
--- OUTSIDE RECORDS SUMMARY | 2024-11-02 09:22 | XMS_ITS | Patient Health Record ---
Author Organization 1 OF [facility] Address [address] [address] [place] [address] Care Team Providers Care Resident Intern Name Role Phone Perry Romero MD Primary Care Provider [place] Unavailable [phone] Reason For Referral No Information Medications Medication [...] Date Medicare [address] PEDRITO Carballo [id number] Deacon Youssef Self - patient is the insured [employer] and Blue [facility] [address] [address] [place], [place] [id number] Domonique Deacon Self - patient is the insured Medical (General) History Medical History History ICD Code anxiety disorder, heart aayush ck, heart failure, pacemaker, high blood pressure
--- OUTSIDE RECORDS SUMMARY | 2024-11-02 09:22 | XMS_ITS | Encounter Summary ---
Author Organization [facility] Healthcare Address [address] [place] [address] Care Team Providers Care Dental Ceramist Assistant Name Role Phone Leonidas Carroll MD Unavailable [phone] Perry Romero MD Primary Care Provider [phone] Love Jones PT Unavailable Unavailab Arthur Law MD Unavailable Karl Cha MD Unavailable [phone] Reason for Visit * Reason Onset Date Comments pre proc blood thinner 07/24/2021 Encounter Details Date Type Department Care Team (Late st Contact Info) Description 07/24/2021 Telephone [facility] [address] [facility] [address] [place], [place] [id number] Arthur Bateman MD [address] [facility] [address] [place], [place] [id number] pre proc blood thinner Social History Tobacco [...] often do you attend chur ch or zoroastrianism services? 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 Author CCM Chronic Pain Care Plan Chronic Care Management No change(08/10 10:32 AM SALES DEVELOPMENT CONSULTANT) No Brissa Muse RN Note: Problem: Chronic Pain Goals: 1. Minimize further functional decline 2. Maximize quality of life 3. Control pain Strategies: - Activity/exercise program recommendation - Conservative stepwise pain medicine strategy with multi-disciplinary approach - Recommend healthy lifestyle strategies and compensatory methods as needed documented as of this encounter Visit Diagnoses Not on filedocumented in this encounter Care Teams Dental Ceramist Assistant Relationship Specialty Start Date End Date Perry Romero MD PCP - General Internal Medicine 02/23/20 Leonidas Carroll MD Senior Accounting Associate Cardiology 05/23/19 Love Jones, PT Physical Therapist Physical Therapy 09/28/22 Arthur Bateman MD [address] [address] Referring Physician Anesthesiology 09/28/22 Karl Cha MD [address] [place] [address] Referring Physician Orthopedic Surgery 11/24/23 documented as of this encounter
--- OUTSIDE RECORDS SUMMARY | 2024-11-02 09:22 | XMS_ITS | Encounter Summary ---
Author Organization [facility] Address [address] [place] [address] Phone Care Team Providers Care Machine Design Engineer Name Role Phone Tim Sanchez MD Primary Care Provider [phone] Lina Mcadams MD Primary Care Provide r Deacon Eisenberg DO Primary Care Provider [phone] Leonidas Carroll MD Unavailable [phone] Perry Romero MD Primary Care Provider [phone] Love Jones PT Unavailable Unavailab Arthur Law MD Unavailable Karl Cha MD Unavailable [phone] Encounter Details Date Type Department Care Team (Late st Contact Info) Description 11/24/2015 Orders Only [facility] ProviderHeena MD [address] [place] [address] Social History Tobacco Use Types Packs/Day Years Used Date Smoking Tobacco: Never Assessed Sex and Gender Information Value Date Recorded Sex Assigned at Not on file 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 Gender Identity Not on file Sexual Orientation [...] on filedocumented in this encounter Care Teams Machine Design Engineer Relationship Specialty Start Date End Date Tim Sanchez MD [address] [place] [address] PCP - General 09/29/16 01/13/18 Lina Mcadams MD [address] [facility] [address] [place] [address] PCP - General 01/14/18 11/21/18 Deacon Eisenberg DO [address] [facility] [address] [place] [address] PCP - General 11/22/18 02/22/20 Perry Romero MD [address] [address] PCP - General Internal Medicine 02/23/20 Leonidas Carroll MD [address] [facility] [address] [place] [address] Truck Body Builder Cardiology 05/23/19 Love Jones, PT Physical Therapist Physical Therapy 09/28/22 Arthur Bateman MD [address] [facility] [address] [place] [address] Referring Physician Anesthesiology 09/28/22 Karl Cha MD [address] [facility] [place] [address] Referring Physician Orthopedic Surgery 11/24/23 documented as of this encounter
--- OUTSIDE RECORDS SUMMARY | 2024-11-02 09:22 | XMS_ITS | Encounter Summary ---
Author Organization [facility] Address [address] [place] [address] Phone Care Team Providers Care Proposal Specialist Name Role Phone Deacon Eisenberg DO Primary Care Provider [phone] Provider, None Primary Care Provider Unavailabl e Encounter Details Date Type Department Care Team (Late st Contact Info) Description 02/15/2020 Transcribe Orders [facility] Preop/Pacu II 1 [place] [id number] Anish Martinez MD [address] [place] [address] Pre-op testing (Primary Dx) Social History Tobacco [...] ABO TYPING AB 02/20/2020 2:05 PM CDT [facility] RH Positive 02/20/2020 2:05 PM CDT [facility] ABSC Negative 02/20/2020 2:05 PM CDT [facility] Blood Venipuncture / Unknown 02/20/2020 10:52 AM CDT 02/20/2020 11:43 AM CDT us Anish Martinez MD BLOOD BANK ORDERABLES Edited Result - Final [facility] #[address] [place] [address] documented in this encounter Visit Diagnoses Diagnosis Pre-op testing- Primary Preoperative examination, unspecified documented in this encounter Care Teams Proposal Specialist Relationship Specialty Start Date End Date Deacon Eisenberg DO [address] [address] PCP - General Family Medicine 11/15/19 02/19/20 Provider, None [place] PCP - General 02/20/20 documented as of this encounter
--- OUTSIDE RECORDS SUMMARY | 2024-11-02 09:22 | XMS_ITS | CONTINUITY OF CARE DOCUMENT ---
Author Name davdi rashmideandra Address Unknown Organization [facility] Address [address] [facility] [address] [place] [address] Phone [phone] Care Team Providers Care Sample Body Builder Name Role Phone Pedro QUINONES, Janay Unavailable KERRY HAIR MD Unavailable [phone] DIOGENES QUINONES, SONAM Unavailable Unavailable INSURANCE PROVIDERS Payer name Policy type / Coverage type Fowler red democrat ID [facility] Blue [facility] [id number] [place] [employer] Medicare [id number]
--- OUTSIDE RECORDS SUMMARY | 2024-11-02 09:22 | XMS_ITS | Encounter Summary ---
Author Organization [facility] Healthcare Address [address] [place] [address] Care Team Providers Care Slitter And Rewinder Name Role Phone Deacon Eisenberg DO Primary Care Provider [phone] Leonidas Carroll MD Unavailable [phone] Perry Romero MD Primary Care Provider Love Jones PT Unavailable Unavailab Arthur Law MD Unavailable Karl Cha MD Unavailable [phone] Encounter Details Date Type Department Care Team (Late st Contact Info) Description 06/03/2019 Documentation [facility] Case Management 1 [place] [address] Shahram Baxter, RN Social History Tobacco Use Types Packs/Day Years Used Date Smoking Tobacco: Former Cigarettes 1 28 1 975 - 2002 Smokeless Tobacco: Never Alcohol Use Standard Drinks/Week Comments Not Currently 0 (1 standard drink = 0.6 oz pur e alcohol) Sex and Gender Information Value Date Recorded Sex Assigned at Not on file 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 However, notified by Cata, patient arranged discharge transportaion and Left for discharge prior to Freight Weigher pravin greene Please call the Weekend Freight Weigher @ [phone] if additional assistance needed. ICAL NURSING PROFESSOR documented in this encounter Plan of Treatment Not on file documented as of this encounter Visit Diagnoses Not on filedocumented in this encounter Care Teams Slitter And Rewinder Relationship Specialty Start Date End Date Deacon Eisenberg DO PCP - General 11/22/18 02/22/20 Perry Romero MD PCP - General Internal Medicine 02/23/20 Leonidas Carroll MD Online Publisher Cardiology 05/23/19 Love Jones, PT Physical Therapist Physical Therapy 09/28/22 Arthur Bateman MD [address] [address] Referring Physician Anesthesiology 09/28/22 Karl Cha MD [facility] [place] [address] Referring Physician Orthopedic Surgery 11/24/23 documented as of this encounter
--- OUTSIDE RECORDS SUMMARY | 2024-11-02 09:22 | XMS_ITS | Encounter Summary ---
Author Organization [facility] Address [address] [place] [address] Phone Care Team Providers Care Director Of Special Services Name Role Phone Lina Mcadams MD Primary Care Provide r Deacon Eisenberg DO Primary Care Provider [phone] Leonidas Carroll MD Unavailable [phone] Perry Romero MD Primary Care Provider Love Jones PT Unavailable Unavailab Arthur Law MD Unavailable Karl Cha MD Unavailable [phone] Encounter Details Date Type Department Care Team (Late st Contact Info) Description 07/08/2018 Telephone [facility] Cardiology [address] [facility] Advanced Medicine 8th [place] [address] [place] [address] Leonidas Carroll MD [address] [facility] [address] [place], [place] [id number] Social History Tobacco Use Types Packs/Day Years Used Date Smoking Tobacco: Former Cigarettes Q uit: 2002 Smokeless Tobacco: Never Alcohol Use Standard Drinks/Week Comments No 0 (1 standard drink = 0.6 oz pur e alcohol) Sex and Gender Information Value Date Recorded Sex Assigned at Not on file 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 Sex Male 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 Gender Identity Not on file Sexual Orientation Not on file documented as of this encounter Plan of Treatment Not on file documented as of this encounter Visit Diagnoses Not on filedocumented in this encounter Care Teams Director Of Special Services Relationship Specialty Start Date End Date Lina Mcadams MD [address] [place] [address] PCP - General 01/14/18 11/21/18 Deacon Eisenberg DO [address] [place] [address] PCP - General 11/22/18 02/22/20 Perry Romero MD [address] [address] PCP - General Internal Medicine 02/23/20 Leonidas Carroll MD [address] [place] [address] Auto Rebuilder Cardiology 05/23/19 Love Jones, PT Physical Therapist Physical Therapy 09/28/22 Arthur Bateman MD [address] [address] Referring Physician Anesthesiology 09/28/22 Karl Cha MD [facility] [place] [address] Referring Physician Orthopedic Surgery 11/24/23 documented as of this encounter
--- OUTSIDE RECORDS SUMMARY | 2024-11-02 09:22 | XMS_ITS | Patient Health Record ---
Author Organization [facility] [employer] Address [address] [facility] [address] [place] [address] Care Team Providers Care Drinking Water Technician Name Role Phone Perry Romero MD Primary Care Provider Unavailab [place] Unavailable [phone] KongNoah nielsonjay Unavailable [phone] Zohreh Hong Unavailable [phone] Allergies No Known Allergies Reason For Referral [...] Status Risk Notes Problem Recurrent major depression (10743553) Major depressive disorder, recurrent, unspecified (F33.9) 10/13/19 Active confirmed Problem Dysthymia (55664584) Dysthymic disorder (F34.1) 10/13/19 Active confirmed Problem 5526306 Primary insomnia (F51.01) Active confirmed Problem Screening for cardiovascular system disease (829500489) Encounter for screening for cardiovascular disorders (Z13.6) Active confirmed Problem Dietary management surveillance (153953883) Dietary counseling and surveillance (Z71.3) Active confirmed Problem Depression Screening (771425908) Encounter for screening for depression (Z13.31) Active confirmed Problem Panic disorder (117283946) Panic disorder [episodic paroxysmal anxiety] without agoraphobia (F41.0) 09/22/19 Active confirmed Problem 10515558 MALI (generalized anxiety disorder) (F41.1) Active confirmed Problem 10860753 MDD (major depressive disorder), recurrent episode, moderate (F33.1) Active confirmed Problem 111693134 Mild cognitive impairment (G31.84) Active confirmed Vital Signs Heart Rate 70 /min 10/09/2024 Blood pressure diastolic 77 mm Hg 10/09/2024 Height-cm 180.34 cm 10/09/2024 Weight-kg 95.26 kg 10/09/2024 Height 71.00 in 10/09/2024 Blood pressure systolic 150 mm Hg 10/09/2024 Weight 210 lbs 10/09/2024 BMI 29.29 kg/m2 10/09/2024 Encounters Encounter Location Date Provider Diagnosis [facility], [facility] [address] [place] [address] 11/30/2023 Zohreh Hong Generalized anxiety disorder F41.1 ; Dysthymic disorder F34.1 and Major depressive disorder, recurrent, unspecified F33.[address] [address] 01/27/2024 Thena Hal Generalized anxiety disorder F41.1 ; Major depressive disorder, recurrent, unspecified F33.9 ; Mild cognitive impairment G31.84 and Panic disorder [episodic paroxysmal anxiety] without agoraphobia F41.[address] [address] 06/09/2024 Thena Hal Major depressive disorder, recurrent, unspecified F33.9 ; Generalized anxiety disorder F41.1 ; Panic disorder [episodic paroxysmal anxiety] without agoraphobia F41.0 ; Dysthymic disorder F34.1 and Benign essential HTN I10 [address] [address] 07/14/2024 Thena Hal Major depressive disorder, recurrent, unspecified F33.9 ; Generalized anxiety disorder F41.1 ; Panic disorder [episodic paroxysmal anxiety] without agoraphobia F41.0 ; Dysthymic disorder F34.1 and Benign essential HTN I10 [address] [address] 08/04/2024 [place] Major depressive disorder, recurrent, unspecified F33.9 ; MALI (generalized anxiety disorder) F41.1 ; Panic disorder [episodic paroxysmal anxiety] without agoraphobia F41.0 ; Mild cognitive impairment G31.84 and Primary insomnia F51.[address] [address] 08/25/2024 [place] Encounter for screen ing for cardiovascular disorders Z13.6 ; MDD (major depressive disorder), recurrent episode, moderate F33.1 ; Dietary counseling and surveillance Z71.3 ; Encounter for screening for depression Z13.31 ; MALI (generalized anxiety disorder) F41.1 ; Panic disorder [episodic paroxysmal anxiety] without agoraphobia F41.0 ; Mild cognitive impairment G31.84 and Primary insomnia F51.[address] [address] 10/09/2024 [place] Encounter for screen ing for cardiovascular disorders Z13.6 ; MDD (major depressive disorder), recurrent episode, moderate F33.1 ; Dietary counseling and surveillance Z71.3 ; Encounter for screening for depression Z13.31 ; MALI (generalized anxiety disorder) F41.1 ; Panic disorder [episodic paroxysmal anxiety] without agoraphobia F41.0 ; Mild cognitive impairment G31.84 ; Primary insomnia F51.01 and Benign essential HTN I10 [address] [facility] [address] [place] [address] 01/07/2024 Thena Hal [address] [address] 06/12/2024 Zohreh Hong Major depressive disorder, recurrent, unspecified F33.[address] [address] 09/07/2024 [place] Assessments Encounter Date Diagnosis (ICD Code) Assessment Notes Treatment Notes Treatment Clinical Notes Section Notes 06/09/2024 Major depressive disorder, recurrent, unspecified (ICD-10 - F33.9) 06/09/2024 Generalized anxiety disorder (ICD-10 - F41.1) 11/30/2023 Dysthymic disorder (ICD-10 - F34.1) 11/30/2023 Generalized anxiety disorder (ICD-10 - F41.1) 01/27/2024 Major depressive disorder, recurrent, unspecified (ICD-10 - F33.9) 01/27/2024 Generalized anxiety disorder (ICD-10 - F41.1) 07/14/2024 Major depressive disorder, recurrent, unspecified (ICD-10 - F33.9) high dose of escitalopram has been beneficial in decreasing depressive symptoms and obsessive ruminations that were not effectively managed on lower doses, per pt report. 07/14/2024 Generalized anxiety disorder (ICD-10 - F41.1) 08/04/2024 [...] neurotoxicity and interactions with prescribed medications 10/09/2024 MDD (major depressive disorder), recurrent episode, moderate (ICD-10 - F33.1) 1 depression Escitalopram Oxalate 20 MG Tablet 1 tablet Oral daily patient has appointments this week with cardiac and vascualr surgeon, cardiac cath, and PT, CATRACT SURGERY scheduled discuss TMS and patient wants to wait at this time- [facility] 10/09/24= 23 [facility]- PATIENT WOULD LIKE TO [...] neurotoxicity and interactions with prescribed medications 08/04/2024 Panic disorder [episodic paroxysmal anxiety] without [...] neurotoxicity and interactions with prescribed medications 07/14/2024 Panic disorder [episodic paroxysmal anxiety] without agoraphobia (ICD-10 - F41.0) 01/27/2024 Mild cognitive impairment (ICD-10 - G31.84) 06/12/2024 Major depressive disorder, recurrent, unspecified (ICD-10 - F33.9) Electronic Prior Authorization was requested for Escitalopram Oxalate 20 MG Tablet. Provider can order medication once approval received. 11/30/2023 Major depressive disorder, recurrent, unspecified (ICD-10 - F33.9) 06/09/2024 Panic disorder [episodic paroxysmal anxiety] without agoraphobia (ICD-10 - F41.0) 06/09/2024 Dysthymic disorder (ICD-10 - F34.1) 01/27/2024 Panic disorder [episodic paroxysmal anxiety] without agoraphobia (ICD-10 - F41.0) 07/14/2024 Dysthymic disorder (ICD-10 - F34.1) 08/25/2024 Encounter for screening for depression (ICD-10 [...] neurotoxicity and interactions with prescribed medications 10/09/2024 Dietary counseling and surveillance (ICD-10 - [...] 07/14/2024 Benign essential HTN (ICD-10 - I10) 08/25/2024 Panic disorder [episodic paroxysmal anxiety] without [...] potential neurotoxicity and interactions with prescribed medications 06/09/2024 Benign essential HTN (ICD-10 - I10) 10/09/2024 MAIL (generalized anxiety disorder) (ICD-10 - F41.1) Electronic [...] neurotoxicity and interactions with prescribed medications 10/09/2024 Panic disorder [episodic paroxysmal anxiety] without [...] patient wants to wait at this time- [facility] 10/09/24= 23 [facility]- PATIENT WOULD LIKE TO [...] approved- rx needed today 4. Memory impairment [facility] 10/09/24= 23 [facility]- PATIENT WOULD LIKE TO [...] approved- rx needed today 4. Memory impairment [facility] 10/09/24= 23 [facility]- PATIENT WOULD LIKE TO [...] patient wants to wait at this time- [facility] 10/09/24= 23 [facility]- PATIENT WOULD LIKE TO [...] approved- rx needed today 4. Memory impairment [facility] 10/09/24= 23 [facility]- PATIENT WOULD LIKE TO [...] Provider Name:[place] , 01/08/2025 09:45:00 AM, [address] [facility] [address], [facility] [address], [place], [address], Insurance Providers Payer Name Payer Address Payer Phone Subscriber Number Group Number Insured Name Patient Relationship to Insured Coverage Start Date Coverage End Date Medicare-I l Medicare [address] [place] [phone] [id number] VICKY ACEVEDO Self - patient is the insured [facility] [address] [place] [address] [id number] VICKY ACEVEDO Self - patient is the insured Medical (General) History Medical History History ICD Code Problems: Generalized anxiety disorder Panic disorder Persistent depressive disorder Recurrent major depression , Surgical History Surgery Date(Month/Year) Cardiac stent Cataract surgery (30332) Cosmetic surgery Heart surgery Appendectomy (57943) Reconstructive surgery
--- OUTSIDE RECORDS SUMMARY | 2024-11-02 09:22 | XMS_ITS | Encounter Summary ---
Author Organization [facility] Address [address] [place] [address] Phone Care Team Providers Care Recreation Program Coordinator Name Role Phone Tim Sanchez MD Primary Care Provider [phone] Lina Mcadams MD Primary Care Provide r Deacon Eisenberg DO Primary Care Provider [phone] Leonidas Carroll MD Unavailable [phone] Perry Romero MD Primary Care Provider [phone] Love Jones PT Unavailable Unavailab Arthur Law MD Unavailable Karl Cha MD Unavailable [phone] Encounter Details Date Type Department Care Team (Late st Contact Info) Description 08/01/2017 Orders Only [facility] CAR CLINCONV ProviderHeena MD [address] [place] [address] Social History Tobacco Use Types Packs/Day Years Used Date Smoking Tobacco: Never Assessed Sex and Gender Information Value Date Recorded Sex Assigned at Not on file 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 Gender Identity Not on file Sexual [...] on filedocumented in this encounter Care Teams Recreation Program Coordinator Relationship Specialty Start Date End Date Tim Sanchez MD [address] [facility] [address] [place] [address] PCP - General 09/29/16 01/13/18 Lina Mcadams MD [address] [facility] [address] [place] [address] PCP - General 01/14/18 11/21/18 Deacon Eisenberg DO [address] [facility] [address] [place] [address] PCP - General 11/22/18 02/22/20 Perry Romero MD [address] [address] PCP - General Internal Medicine 02/23/20 Leonidas Carroll MD [address] [facility] 15 [place] [address] Police Service Technician Cardiology 05/23/19 Love Jones, PT Physical Therapist Physical Therapy 09/28/22 Arthur Bateman MD [address] [facility] [address] [place] [address] Referring Physician Anesthesiology 09/28/22 Karl Cha MD [address] [facility] [address] [place] [address] Referring Physician Orthopedic Surgery 11/24/23 documented as of this encounter
--- OUTSIDE RECORDS SUMMARY | 2024-11-02 09:22 | XMS_ITS | Encounter Summary ---
Author Organization [facility] Address [address] [place] [address] Phone Care Team Providers Care Tattoo Artist Name Role Phone Tim Sanchez MD Primary Care Provider Lina Mcadams MD Primary Care Provide r Deacon Eisenberg DO Primary Care Provider [phone] Leonidas Carroll MD Unavailable [phone] Perry Romero MD Primary Care Provider [phone] Love Jones PT Unavailable Unavailab Arthur Law MD Unavailable Karl Cha MD Unavailable [phone] Encounter Details Date Type Department Care Team (Latest Contact Info) Description 03/05/2017 Orders Only [facility] CONVERSION Scanning, Provider Social History Tobacco Use Types Packs/Day Years Used Date Smoking Tobacco: Never Assessed Sex and Gender Information Value Date Recorded Sex Assigned at Not on file 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 Gender Identity Not on file Sexual [...] on filedocumented in this encounter Care Teams Tattoo Artist Relationship Specialty Start Date End Date Tim Sanchez MD [address] [place] [address] PCP - General 09/29/16 01/13/18 Lina Mcadams MD [address] [facility] 15 [place] [address] PCP - General 01/14/18 11/21/18 Deacon Eisenberg DO [address] [address] PCP - General 11/22/18 02/22/20 Perry Romero MD [address] [address] PCP - General Internal Medicine 02/23/20 Leonidas Carroll MD [address] [address] Benefit Director Cardiology 05/23/19 Love Jones, PT Physical Therapist Physical Therapy 09/28/22 Arthur Bateman MD [address] [address] Referring Physician Anesthesiology 09/28/22 Karl Cha MD [address] [facility] [address] [place] [address] Referring Physician Orthopedic Surgery 11/24/23 documented as of this encounter
--- OUTSIDE RECORDS SUMMARY | 2024-11-02 09:22 | XMS_ITS | Encounter Summary ---
Author Organization [facility] Address [address] [place] [address] Care Team Providers Care Printing And Stamping Supervisor Name Role Phone Leonidas Carroll MD Unavailable [phone] Perry Romero MD Primary Care Provider [phone] Love Jones PT Unavailable Unavailab Arthur Law MD Unavailable Karl Cha MD Unavailable [phone] Encounter Details Date Type Department Care Team (Late st Contact Info) Description 10/31/2024 Orders Only [facility] [address] [address] Perry Romero MD [facility] [address] Social History Tobacco Use Types Packs/Day Years [...] week 05/02/2021 How often do you attend [facility] or druze services? 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 Author CCM Chronic Pain Care Plan Chronic Care Management No change(08/10 10:32 AM OPEN SOURCE DEVELOPER) No Brissa Muse, RN Note: Problem: Chronic Pain Goals: 1. Minimize further functional decline 2. Maximize quality of life 3. Control pain Strategies: - Activity/exercise program recommendation - Conservative stepwise pain medicine strategy with multi-disciplinary approach - Recommend healthy lifestyle strategies and compensatory methods as needed documented as of this encounter Procedures Procedure Name Priority Date/Time Associated Diagnosis Comments SCAN - RADIOLOGY/IMAGING 10/31/2024 2:18 PM CDT documented in this encounter Results * SCAN - RADIOLOGY/IMAGING (10/31/2024 2:18 PM CDT) Anatomical Region Laterality Modality Other us Perry Romero MD Final Result documented in this encounter Visit Diagnoses Not on filedocumented in this encounter Care Teams Printing And Stamping Supervisor Relationship Specialty Start Date End Date Perry Romero MD PCP - General Internal Medicine 02/23/20 Leonidas Carroll MD Electric Relay Tester Cardiology 05/23/19 Love Jones, PT Physical Therapist Physical Therapy 09/28/22 Arthur Bateman MD [address] [address] Referring Physician Anesthesiology 09/28/22 Karl Cha MD [facility] [address] [place] [address] Referring Physician Orthopedic Surgery 11/24/23 documented as of this encounter
--- OUTSIDE RECORDS SUMMARY | 2024-11-02 09:22 | XMS_ITS | Encounter Summary ---
Author Organization [facility] Address [address] [place] [address] Phone Care Team Providers Care Supervisor Knitting Name Role Phone Tim Sanchez MD Primary Care Provider [phone] Lina Mcadams MD Primary Care Provide r Deacon Eisenberg DO Primary Care Provider [phone] Leonidas Carroll MD Unavailable [phone] Perry Romero MD Primary Care Provider [phone] Love Jones PT Unavailable Unavailab Arthur Law MD Unavailable Karl Cha MD Unavailable [phone] Encounter Details Date Type Department Care Team (Late st Contact Info) Description 09/15/2016 Orders Only [facility] CAR CLINCONV ProviderHeena MD [address] [place] [address] Social History Tobacco Use Types Packs/Day Years Used Date Smoking Tobacco: Never Assessed Sex and Gender Information Value Date Recorded Sex Assigned at Not on file 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 Gender Identity Not on file Sexual Orientation [...] filedocumented in this encounter Care Teams Supervisor Knitting Relationship Specialty Start Date End Date Tim Sanchez MD [address] [facility] [address] [place] [address] PCP - General 09/29/16 01/13/18 Lina Mcadams MD [address] [facility] 15 [place] [address] PCP - General 01/14/18 11/21/18 Deacon Eisenberg DO [address] [facility] 15 [place] [address] PCP - General 11/22/18 02/22/20 Perry Romero MD [address] [address] PCP - General Internal Medicine 02/23/20 Leonidas Carroll MD [address] [facility] 15 [place] [address] Cable Splicer Assistant Cardiology 05/23/19 Love Jones, PT Physical Therapist Physical Therapy 09/28/22 Arthur Bateman MD [address] [facility] 14[address] [place] [address] Referring Physician Anesthesiology 09/28/22 Karl Cha MD [address] [facility] [address] [place] [address] Referring Physician Orthopedic Surgery 11/24/23 documented as of this encounter
--- OUTSIDE RECORDS SUMMARY | 2024-11-02 09:22 | XMS_ITS | Encounter Summary ---
Author Organization [facility] Address [address] [place] [address] Phone Care Team Providers Care Water Quality Technician Name Role Phone Lina Mcadams MD Primary Care Provide r Deacon Eisenberg DO Primary Care Provider [phone] Leonidas Carroll MD Unavailable [phone] Perry Romero MD Primary Care Provider Love Jones PT Unavailable Unavailab Arthur Law MD Unavailable Karl Cha MD Unavailable [phone] Encounter Details Date Type Department Care Team (Late st Contact Info) Description 01/25/2018 Telephone [facility] Cardiology [address] [facility] Advanced Medicine 8th [place] [address] [place] [address] Leonidas Carroll MD [address] [facility] [address] [place], [place] [id number] Social History Tobacco Use Types Packs/Day Years Used Date Smoking Tobacco: Former Smokeless Tobacco: Never Alcohol Use Standard Drinks/Week Comments No 0 (1 standard drink = 0.6 oz pur e alcohol) Sex and Gender Information Value Date Recorded Sex Assigned at Not on file 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 Gender Identity Not on file Sexual Orientation Not on file documented as of this encounter Plan of Treatment Not on file documented as of this encounter Visit Diagnoses Not on filedocumented in this encounter Care Teams Water Quality Technician Relationship Specialty Start Date End Date Lina Mcadams MD [address] [place] [address] PCP - General 01/14/18 11/21/18 Deacon Eisenberg DO [address] [place] [address] PCP - General 11/22/18 02/22/20 Perry Romero MD [address] [place] [address] PCP - General Internal Medicine 02/23/20 Leonidas Carroll MD [address] [place] [address] Rehab/Pre Vocational Counselor Cardiology 05/23/19 Love Jones, PT Physical Therapist Physical Therapy 09/28/22 Arthur Bateman MD [address] [address] Referring Physician Anesthesiology 09/28/22 Karl Cha MD [address] [place] [address] Referring Physician Orthopedic Surgery 11/24/23 documented as of this encounter
--- OUTSIDE RECORDS SUMMARY | 2024-11-02 09:22 | XMS_ITS ---
Author Organization 1 OF Chichi [facility]jas [facility] Address [address] [address] Care Team Providers Care Assessment Services Manager Name Role Phone Perry Romero MD Primary Care Provider [facility] [phone] REASON FOR VISIT Sched orthotic Encounters Encounter Location Date Provider Diagnosis 1 OF [facility] Carmona [facility] [address] [address] 10/15/2023 Rio Griffith Plan Of Treatment No Information Progress Notes * Deacon YOUSSEFDOB: (68 yo M)Acc No.[id number]:10/15/2023 Patient: Deacon TORREZ :1955 A ge:68 Y S ex:Male Address:[facility] [place], [address] * true * Date: Generated for Printi ng/Faroelg/eTransmitting on: 0 11/02/2024 09:22 AM CDT
--- OUTSIDE RECORDS SUMMARY | 2024-11-02 09:22 | XMS_ITS | Encounter Summary ---
Author Organization [facility] Address [address] [place] [address] Phone Care Team Providers Care Mac Operator Name Role Phone Leonidas Carroll MD Unavailable [phone] Perry Romero MD Primary Care Provider Love Jones PT Unavailable Unavailab Arthur Law MD Unavailable Karl Cha MD Unavailable [phone] Encounter Details Date Type Department Care Team (Late st Contact Info) Description 11/01/2024 Telephone [facility] Cardiology [address] [facility] 8th [place] [address] [place] [address] Leonidas Carroll MD [address] [facility] [address] [place] [address] Social History Tobacco Use Types [...] week 05/02/2021 How often do you attend [facility] or yazdanism services? 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 Gender Identity Not on file Sexual Orientation Not on file documented as of this encounter Ordered Prescriptions Prescription Sig Dispense Quantity Refills Last Filled Start Date End Date sacubitriL-valsart an (ENTRESTO) 24-26 mg tabletIndications: chronic heart failure Take 1 tablet by mouth 2 (two) times a day 60 tablet 11 11/01/2024 12/01/2024 documented in this encounter Miscellaneous Notes * Telephone Encounter - Jose Carty RMA - 11/01/2024 12:47 PM CDT Requested Prescriptions Pending Prescriptions Disp Refills sacubitriL-valsartan (ENTRESTO) 24-26 mg tablet 60 tablet 11 Sig: Take 1 tablet by mouth 2 (two) times a day Last provider visit: 10/03/24 Next provider visit: 11/20/24 Preferred pharmacy: [id number] - [place] [address] [address] [facility] [place] [address] [address] [facility] [address] Was med refilled or sent back to Provider Pool for clarification? MED WAS REFILLED * Telephone Encounter - Mirian Diaz - 11/01/2024 11:35 AM CDT Glen Gallagher calling to speak with a nurse in regards to seeing if a refill prescription of Entresto 24-26 mgcould be sent to the pharmacy. [facility] documented in this encounter Plan of Treatment Not on file documented as of this encounter Goals Goal Patient Goal Type Associated Problems Recent Progress Patient-Stated? Author CCM Chronic Pain Care Plan Chronic Care Management No change(08/10 10:32 AM FISHER POT) No Brissa Muse RN Note: Problem: Chronic Pain Goals: 1. Minimize further functional decline 2. Maximize quality of life 3. Control pain Strategies: - Activity/exercise program recommendation - Conservative stepwise pain medicine strategy with multi-disciplinary approach - Recommend healthy lifestyle strategies and compensatory methods as needed documented as of this encounter Visit Diagnoses Not on filedocumented in this encounter Discontinued Medications Medication Sig Discontinue Reason Start Date End Da te sacubitriL-valsartan (ENTRESTO) 24-26 mg tabletIndications:chroni c heart failure Take 1 tablet by mouth 2 (two) times a day Reorder 10/03/2024 11/01/2024 documented as of this encounter Care Teams Mac Operator Relationship Specialty Start Date End Date Perry Romero MD PCP - General Internal Medicine 02/23/20 Leonidas Carroll MD Pig Farm Manager Cardiology 05/23/19 Love Jones, PT Physical Therapist Physical Therapy 09/28/22 Arthur Bateman MD [address] [address] Referring Physician Anesthesiology 09/28/22 Karl Cha MD [address] [place] [address] Referring Physician Orthopedic Surgery 11/24/23 documented as of this encounter
--- OUTSIDE RECORDS SUMMARY | 2024-11-02 09:22 | XMS_ITS ---
Author Organization [facility] Address [address] [facility] [employer] [address] [address] Care Team Providers Care Receiver Dispatcher Name Role Phone Perry Romero MD Primary Care Provider Rio [facility] [phone] REASON FOR VISIT RIGHT FOOT PAIN Medications [...] 1 OF [facility] [address] [address] 09/28/2023 Rio Gladis Metatarsalgia, right foot M77.41 [...] Notes * Deacon YOUSSEFDOB: (68 yo M)Acc No.[id number]:09/28/2023 Patient: Deacon TORREZ Provider: Triston Griffith DPM :1955 A ge:68 Y S ex:Male Date:09/28/2023 Address:[address] [place], [place] [address] Pcp:Perry Romero MD Subjective: * Chief [...] 09/28/2023 Generated for Humberto hayes/Vanda/Arpita on: 0 11/02/2024 09:22 AM CDT History and Physical Notes * HPI [...]
--- OUTSIDE RECORDS SUMMARY | 2024-11-02 09:22 | XMS_ITS | Encounter Summary ---
Author Organization [facility] Address [address] [place] [address] Phone Care Team Providers Care Remodeler Name Role Phone Leonidas Carroll MD Unavailable [phone] Perry Romero MD Primary Care Provider Love Jones PT Unavailable Unavailab Arthur Law MD Unavailable Karl Cha MD Unavailable [phone] Encounter Details Date Type Department Care Team (Late st Contact Info) Description 06/22/2024 Telephone [facility] Cardiology [address] [facility] 8th [place] [address] [place] [address] Leonidas Carroll MD [address] [facility] [address] [place] [address] Social History Tobacco Use Types [...] week 05/02/2021 How often do you attend [facility] or druze services? 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 Author CCM Chronic Pain Care Plan Chronic Care Management No change(08/10 10:32 AM MANAGED SECURITY SALES CONSULTANT) Brissa Pate, RN Note: Problem: Chronic Pain Goals: 1. Minimize further functional decline 2. Maximize quality of life 3. Control pain Strategies: - Activity/exercise program recommendation - Conservative stepwise pain medicine strategy with multi-disciplinary approach - Recommend healthy lifestyle strategies and compensatory methods as needed documented as of this encounter Visit Diagnoses Not on filedocumented in this encounter Care Teams Remodeler Relationship Specialty Start Date End Date Perry Romero MD PCP - General Internal Medicine 02/23/20 Leonidas Carroll MD Senior Insight Manager Cardiology 05/23/19 Love Jones, PT Physical Therapist Physical Therapy 09/28/22 Arthur Bateman MD [address] [address] Referring Physician Anesthesiology 09/28/22 Karl Cha MD [address] [place] [address] Referring Physician Orthopedic Surgery 11/24/23 documented as of this encounter
--- OUTSIDE RECORDS SUMMARY | 2024-11-02 09:22 | XMS_ITS | Encounter Summary ---
Author Organization [facility] Address [address] [place] [address] Phone Care Team Providers Care Manager Public Name Role Phone Tim Sanchez MD Primary Care Provider [phone] Lina Mcadams MD Primary Care Provide r Deacon Eisenberg DO Primary Care Provider [phone] Leonidas Carroll MD Unavailable [phone] Perry Romero MD Primary Care Provider [phone] Love Jones PT Unavailable Unavailab Arthur Law MD Unavailable Karl Cha MD Unavailable [phone] Encounter Details Date Type Department Care Team (Late st Contact Info) Description 05/13/2015 Orders Only [facility] CAR CLINCONV ProviderHeena MD [address] [place] [address] Social History Tobacco Use Types Packs/Day Years Used Date Smoking Tobacco: Never Assessed Sex and Gender Information Value Date Recorded Sex Assigned at Not on file 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 Gender Identity Not on file Sexual Orientation [...] filedocumented in this encounter Care Teams Manager Public Relationship Specialty Start Date End Date Tim Sanchez MD [address] [facility] [address] [place] [address] PCP - General 09/29/16 01/13/18 Lina Mcadams MD [address] [facility] 15 [place] [address] PCP - General 01/14/18 11/21/18 Deacon Eisenberg DO [address] [facility] [address] [place] [address] PCP - General 11/22/18 02/22/20 Perry Romero MD [address] [address] PCP - General Internal Medicine 02/23/20 Leonidas Carroll MD [address] [facility] 15 [place] [address] [employer] Cardiology 05/23/19 Love Jones, PT Physical Therapist Physical Therapy 09/28/22 Arthur Bateman MD [address] [facility] [address] [place] [address] Referring Physician Anesthesiology 09/28/22 Karl Cha MD [address] [facility] [address] [place] [address] Referring Physician Orthopedic Surgery 11/24/23 documented as of this encounter
--- OUTSIDE RECORDS SUMMARY | 2024-11-02 09:23 | XMS_ITS | Clinical Summary ---
Author Organization [facility] Address [address] [place] [address] Care Team Providers Care Rn Wound Care Name Role Phone Rigo Carroll MD Unavailable [phone] Perry Romero MD Primary Care Provider [phone] Love Jones PT Unavailable Unavailab Arthur Law MD Unavailable Karl Cha MD Unavailable [phone] Allergies Active Allergy Reactions Criticality Noted Date Comments Nktusjy-Pti-Jay Reductase Inhibitors Other (See comments) Low 05/03/2024 [...] 1 tablet (5 mg total) by mouth grassroots organizer before breakfast 90 tablet 3 Active clopidogreL [...] by mouth daily 30 tablet 2025 Active empagliflozin (JARDIANCE) 10 mg tablet Take 1 tablet (10 mg total) by mouth daily 30 tablet Active amLODIPine (NORVASC) 2.5 mg tablet TAKE 1 TABLET(2.5 MG) BY MOUTH DAILY 90 tablet 3 Active sacubitriL-valsarta n (ENTRESTO) 24-26 mg tabletIndications:c hronic heart failure Take 1 tablet by mouth 2 (two) times a day 60 tablet 025 2024 Active tamsulosin (FLOMAX) 0.4 mg extended release capsuleIndications: Nocturia Take 1 capsule (0.4 mg total) by mouth daily 30 capsule 2021 Discontinued amLODIPine (NORVASC) 2.5 mg tablet TAKE 1 TABLET(2.5 MG) BY MOUTH DAILY 90 tablet 3 024 2024 Discontinued sacubitriL-valsarta n (ENTRESTO) 24-26 mg tabletIndications:c hronic heart failure Take 1 tablet by mouth 2 (two) times a day 60 tablet 11 025 2024 Discontinued(R eorder) Active Problems Problem Noted Date Diagnosed Date Greater trochanteric bursitis of both hips 08/10 Tensor fascia shorty syndrome 08/10/2024 Osteoarthritis of left knee, unspecified osteoarthritis type 04/24/2024 Primary osteoarthritis of left knee 02/18/2024 Generalized anxiety disorder 10/13/2023 Recurrent major depression 10/13/2023 Dysthymia 10/13/2023 Arthralgia of both knees 07/07/2023 Chronic midline low back pain without sciatica 0 06/17/2023 Assessment & Plan (06/17/2023 10:00 AM TRACK INSPECTING SUPERVISOR): Continue flexeril 10mg Q8 PRN Trial gabapentin 100mg Q8 TID Topical lidocaine patches 4%, on for 12 hours/off for 12 hours Will send [place] 5/325 PRN #28, discussed that this will [...] 07/21/2021 Assessment & Plan (07/21/2021 9:52 AM TRACK INSPECTING SUPERVISOR): Baseline creatine 1.3-1.5 Creatine Within patient;s baseline at 1.3 CTM Received IV fluids 500 ml on admission for creatine 1.59 Statin intolerance 07/18/2021 Assessment & Plan (07/18/2021 3:39 PM TRACK INSPECTING SUPERVISOR): History of statin intolerance -Continue ezetimibe and fenofibrate DM2 (diabetes mellitus, type 2) 07/18/2021 Assessment & Plan (07/19/2021 7:58 AM TRACK INSPECTING SUPERVISOR): Follow glucose and rx with insulin Metformin held for now pending cath. Assessment & Plan (07/18/2021 3:41 PM TRACK INSPECTING SUPERVISOR): -Hemoglobin A1c 6.1 -Hold home metformin while inpatient -SSI while admitted -Carb consistent diet -Accuchecks BPH (benign prostatic hyperplasia) 07/18/2021 Assessment & Plan (07/18/2021 3:59 PM TRACK INSPECTING SUPERVISOR): BPH s/p TURP -Continue home finasteride and tamsulosin HLD (hyperlipidemia) 07/18/2021 Assessment & Plan (10/11/2024 11:06 AM CDT): Recommend statin therapy. Assessment & Plan (09/15/2024 10:52 AM CDT): Stable continue Zetia Assessment & Plan (08/31/2024 1:57 PM CDT): Impression: Chronic stable. Plan: Continue Zetia, fenofibrate Assessment & Plan (07/21/2021 8:10 AM TRACK INSPECTING SUPERVISOR): LDL ok while on non-statins due to intolerance. Continue present Rx for now Assessment & Plan (07/20/2021 8:10 AM TRACK INSPECTING SUPERVISOR): LDL ok while on non-statins due to intolerance. Continue present Rx for now Assessment & Plan (07/19/2021 7:57 AM TRACK INSPECTING SUPERVISOR): LDL ok while on non-statins due to intolerance. Continue present Rx for now Assessment & Plan (07/18/2021 3:52 PM TRACK INSPECTING SUPERVISOR): Lipid panel WNL -Continue ezetimibe and fenofibrate [...] 07/18/19 Assessment & Plan (07/18/2021 4:00 PM TRACK INSPECTING SUPERVISOR): PVOD s/p bilateral iliac stents Unstable angina 07/18/2021 Overview (07/18/2021): Added automatically from request for surgery [id number] Assessment & Plan (07/21/2021 8:10 AM TRACK INSPECTING SUPERVISOR): CP concerning for USA. troponins normal, ruled out for MT. I have recommended coronary angiography and this is scheduled for today. Pt has PAD Continue IV heparin, follow labs and adjust. Continue aspirin, plavix, beta carrie, Patient asymptomatic. Cardiac catheterization scheduled for tomorrow. NPO after midnight. Assessment & Plan (07/20/2021 8:10 AM TRACK INSPECTING SUPERVISOR): CP concerning for USA. troponins normal, ruled out for MT. I have recommended coronary angiography and this is scheduled for Wednesday. Pt has PAD and radial approach may be preferred. Continue IV heparin, follow labs and adjust. Continue aspirin, plavix, beta carrie, Patient asymptomatic. Cardiac catheterization scheduled for tomorrow. NPO after midnight. Assessment & Plan (07/19/2021 7:56 AM TRACK INSPECTING SUPERVISOR): CP concerning for USA. troponins normal, ruled out for MT. Brief left sided chest pain since admission. [...] (03/06/2021): Added automatically from request for surgery [id number] Presbyopia 02/03/2021 Assessment & Plan (08/12/2023 5:06 PM TRACK INSPECTING SUPERVISOR): -Noting increased difficulty with near vision while reading -Recommended trialing higher power reading glasses Assessment & Plan (02/03/2021 2:44 PM CDT): Correctable to 20/25 right eye (OD) and left eye (OS). Update specs as desired. Rosacea 09/18/2020 Metatarsalgia of right foot 07/04/2020 Overview (07/04/2020): Added automatically from request for surgery [id number] Sesamoiditis 07/04/2020 Overview (07/04/2020): Added automatically from request for surgery [id number] Painful orthopaedic hardware 07/04/2020 Overview (07/04/2020): Added automatically from request for surgery [id number] Achilles tendon contracture, right 07/04/2020 Overview (07/04/2020): Added automatically from request for surgery [id number] Pseudarthrosis after fusion or arthrodesis 02/28 Overview (02/28/2019): Added automatically from request for surgery [id number] Diabetes mellitus type 2 without retinopathy 05/2019 Assessment & Plan (02/09/2023 3:33 PM CDT): Continue strict BS control, annual dilated eye exams. Assessment & Plan (06/17/2022 4:09 PM TRACK INSPECTING SUPERVISOR): Continue strict BS control, annual dilated eye [...] months Assessment & Plan (08/12/2023 5:05 PM TRACK INSPECTING SUPERVISOR): -Follow up exam for AMD; last visit [...] 6months Assessment & Plan (06/17/2022 9:41 AM TRACK INSPECTING SUPERVISOR): -No signs of exudation. -given the large [...] months Assessment & Plan (08/13/2021 3:12 PM TRACK INSPECTING SUPERVISOR): No signs of exudation. Per AREDS study, [...] follow. Assessment & Plan (06/17/2022 4:09 PM TRACK INSPECTING SUPERVISOR): NVS, follow. Assessment & Plan (02/23/2019 10:32 [...] (06/08/2018): Added automatically from request for surgery [id number] Palpitations 04/15/2018 CAD (coronary artery disease) 03/08/2018 Assessment & Plan (09/04/2024 11:21 AM CDT): stable Assessment & Plan (07/18/2021 3:42 PM TRACK INSPECTING SUPERVISOR): CAD s/p CABG in 2010 (KAUR-LAD which is known to be an atretic graft; vein graft-marginal; and vein graft-2nd marginal branch; RCA occluded, with collateral revascularization) -Last C in 11/2018 showed patent KAUR graft to LAD but atretic KAUR graft with patent vein graft to OM1 marginal and right coronary occlusion he has been on medical therapy -Stress test 02/2021 showed inferior infarction without ischemia -Continue aspirin, clopidogrel, BB, amlodipine Assessment & Plan (02/28/2020 3:22 PM CDT): Has been doing well. No chest pain, normal stress test 2019 Continue current meds. Diabetes mellitus type II, non insulin dependent ([facility]) 01/15/2018 Assessment & Plan (09/04/2024 11:21 AM CDT): Stable and doing well Assessment & Plan (07/21/2021 9:50 AM TRACK INSPECTING SUPERVISOR): Hemoglobin a1c 6.1 - diet controlled for now Metformin on hold for [facility] Continue to monitor. Assessment & Plan (07/20/2021 8:11 AM TRACK INSPECTING SUPERVISOR): Blood sugar stable. Follow-up blood sugar. Treat with insulin as appropriate Metformin being held. Assessment & Plan (02/28/2020 3:23 PM CDT): a1c at target, recommend annual eye exam. Feet are without lesions. Assessment & Plan (11/22/2018 4:43 PM CDT): On metformin 1000mg BID at home -LDSSI Assessment & Plan (11/14/2018 1:46 PM CDT): No SUPERVISOR POULTRY PROCESSING Last A1C was 01/2018 but at goal [...] metoprolol Assessment & Plan (07/18/2021 3:53 PM TRACK INSPECTING SUPERVISOR): BP currently well controlled -Continue amlodipine, lisinopril [...] 09/15/2016 Assessment & Plan (07/18/2021 4:06 PM TRACK INSPECTING SUPERVISOR): -Continue metoprolol XL -Telemetry Assessment & Plan [...] stable Assessment & Plan (07/21/2021 8:10 AM TRACK INSPECTING SUPERVISOR): Pacer function stable Continue present Rx. Continue beta-carrie. Assessment & Plan (07/20/2021 8:10 AM TRACK INSPECTING SUPERVISOR): Pacer function stable Continue present Rx. Continue beta-carrie. 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 Maty Weber Assessment & Plan (02/28/2020 3:23 PM CDT): No palpitations, syncope Depressive disorder 03/15/2015 Panic disorder without agoraphobia 03/15/2015 Resolved Problems Problem Noted Date Diagnosed Date Resolved Date Pain in right foot 04/24/2022 4 LINUS (acute kidney injury) 07/18/2021 Assessment & Plan (07/21/2021 8:12 AM TRACK INSPECTING SUPERVISOR): Pt with CKDstage 3, CrCl 50 ml/min. Creatinine improved. Cath today Assessment & Plan (07/20/2021 8:11 AM TRACK INSPECTING SUPERVISOR): Pt with CKDstage 3, CrCl 50 ml/min. Repeat BMP today. IV hydration Mikal night before cath recommended. Assessment & Plan (07/19/2021 7:59 AM TRACK INSPECTING SUPERVISOR): Pt with CKDstage 3, CrCl 50 ml/min. Stable. IV hydration Mikal night before cath recommended. Assessment & Plan (07/18/2021 3:44 PM TRACK INSPECTING SUPERVISOR): LINUS (Cr 1.59 on admission) on CKD (baseline Cr 1.0-1.2) -S/p 500 ml LR bolus in ED -Follow BMPs Statin intolerance 02/10/2021 4 Syncope and collapse 12/30/2020 024 Encounter for screening colonoscopy 10/14/2020 06/17/2023 Overview (10/14/2020): Added automatically from request for surgery [id number] Joint pain 02/28/2020 06/17/2023 Assessment & Plan (04/29/2020 10:45 AM TRACK INSPECTING SUPERVISOR): Medrol dose pack Tramadol Q6 PRN (use, safety, s/e reviewed) Referral to Pain Management Assessment & Plan (02/28/2020 3:25 PM CDT): xrays noted, check rheum panel (? H/o pos JENNIFER) Confusion 01/04/2019 06/17/2023 Chest pain 01/15/2018 06/17/2023 Assessment & Plan (07/21/2021 9:47 AM TRACK INSPECTING SUPERVISOR): CAD s/p CABG (2010), admitted with chest [...] for chest pain -Telemetry monitoring NPO for LHC Assessment & Plan (01/16/2018 10:39 AM CDT): [...] Encounters Date Type Department Care Team Description 11/01/2024 Telephone [facility] [address] [place] [address] Medicine 8th [place] [address] [place] [address] Rigo Carroll MD 10/31/2024 Orders Only [facility] [address] [facility] [address] [facility] [address] [place] [phone] Perry Romero MD 10/25/2024 1:00 PM CDT Office Visit [facility] 6th [place] [id number] Sudhir Martinez MD Greater trochanteric pain syndrome of right lower extremity (Primary Dx); Chronic right hip pain; Chronic knee pain after total replacement of left knee joint 10/23/2024 Telephone [facility] 8th [place] [address] [place] [address] Riog Carroll MD BP updates 10/18/2024 10:15 AM CDT Lab [facility] Outpatient Lab at [address] [address] Diabetes mellitus type 2 without retinopathy (HCC) (Primary Dx); High risk medications (not anticoagulants) long-term use 10/18/2024 10:10 AM CDT - 10/18/2024 11:59 PM CDT Hospital Encounter [address] [address] High risk medications (not anticoagulants) long-term use Discharge Disposition: Discharge to home or self care 10/18/2024 Results Follow-Up [facility] [address] [place] [address] 8th [place] [address] [place] [address] Rigo Carroll MD Basic metabolic panel, eGFR 10/16/2024 10:45 AM CDT - 10/16/2024 12:25 PM CDT Surgery [facility] [address] [place] [address] Clifford Sandy MD CORONARY ARTERY AND GRAFT ANGIOGRAPHY 33444 10/16/2024 8:28 AM CDT - 10/16/2024 5:00 PM CDT Hospital Encounter [facility] [address] [place] [address] Clifford Sandy MD Coronary artery disease involving kotlik heart without angina pectoris, unspecified vessel or lesion type Discharge Disposition: Discharge to home or self care 10/16/2024 Results Follow-Up [facility] [address] [place] [address] 8th [place] [address] [place] [address] Rigo Carroll MD Cardiac Catheterization 10/11/2024 8:45 AM CDT Office Visit [facility] Vascular at [address] [place] [address] Ivet Montana MD Peripheral vascular disease (Primary Dx); Primary hypertension; Mixed hyperlipidemia 10/11/2024 Orders Only [facility] Health Information Management [address] [place] [address] Scanning, Provider 10/11/2024 Orders Only [facility] Vascular at [address] [place] [address] Ivet Montana MD Atherosclerosis of kotlik artery of both lower extremities with intermittent claudication (Primary Dx); Other specified symptoms and signs involving the circulatory and respiratory systems 10/05/2024 10:00 AM CDT Office Visit [facility] Op[facility] [address] [facility] 1st [place] [address] Sherri Jean-Baptiste MD 10/05/2024 Telephone [facility] [address] [facility] 8th [place] [address] [place] [address] Rigo Carroll MD follow up of previous orders 10/04/2024 1:17 PM CDT - 10/04/2024 11:59 PM CDT Hospital Encounter [facility] Office Building [address] [address] Atherosclerosis of kotlik artery of both lower extremities with intermittent claudication Discharge Disposition: Discharge to home or self care 10/03/2024 11:50 AM CDT - 10/03/2024 11:59 PM CDT Hospital Encounter [facility] [address] [place] [address] Coronary artery disease involving kotlik coronary artery of kotlik heart without angina pectoris Discharge Disposition: Discharge to home or self care 10/03/2024 11:45 AM CDT Lab [facility] Endocrinology Metabolism and Lipid [address] [place] [address] Coronary artery disease involving kotlik coronary artery of kotlik heart without angina pectoris 10/03/2024 10:30 AM CDT Office Visit [facility] [address] [facility] 8th [place] [address] [place] [address] Rigo Carroll MD Coronary artery disease involving kotlik coronary artery of kotlik heart without angina pectoris (Primary Dx); Primary hypertension; Pure hypercholesterolemia; Peripheral vascular disease; Presence of cardiac pacemaker 10/03/2024 9:15 AM CDT - 10/03/2024 11:59 PM CDT Hospital Encounter [facility] [address] [address] Cardiomyopathy, ischemic Discharge Disposition: Discharge to home or self care 10/03/2024 Results Follow-Up [facility] [address] [facility] 8th [place] [address] [place] [address] Rigo Carroll MD Pro B-type natriuretic peptide 10/03/2024 Results Follow-Up [facility] [address] [facility] 8th [place] [address] [place] [address] Rigo Carroll MD CBC with auto differential, Basic metabolic panel 10/03/2024 Telephone [facility] [address] [facility] 8th [place] [address] [place] [address] Rigo Carroll MD Cath orders 09/13/2024 8:30 AM CDT Office Visit [facility] Vascular at [address] [place] [address] Ivet Montana MD Peripheral vascular disease (Primary Dx); Mixed hyperlipidemia; Primary hypertension 09/13/2024 Orders Only [facility] Vascular at [address] [place] [address] Ivet Montana MD Atherosclerosis of kotlik artery of both lower extremities with intermittent claudication (Primary Dx) 09/05/2024 10:00 AM CDT Ancillary Procedure [facility] Vascular and Vein Surgery at [address] [place] [address] Atherosclerosis of kotlik artery of both lower extremities with intermittent claudication 09/05/2024 10:00 AM CDT Ancillary Procedure [facility] Vascular and Vein Surgery at [address] [place] [address] Atherosclerosis of kotlik artery of both lower extremities with intermittent claudication 09/05/2024 9:00 AM CDT Ancillary Procedure [facility] Vascular [facility] Vein Surgery at [address] [place] [address] Atherosclerosis of kotlik artery of both lower extremities with intermittent claudication; Other specified symptoms and signs involving the circulatory and respiratory systems 09/04/2024 10:30 AM CDT Office Visit [facility] [address] [facility] [address] [address] Perry Romero MD Diabetes mellitus type II, non insulin dependent (HCC) (Primary Dx); Sick sinus syndrome (CMS/HCC) (HCC); Primary hypertension; Coronary artery disease involving kotlik heart without angina pectoris, unspecified vessel or lesion type 08/30/2024 9:15 AM CDT Office Visit [facility] Vascular at [address] [place] [address] Rosana Fink NP Peripheral vascular disease (Primary Dx); Mixed hyperlipidemia; Primary hypertension 08/30/2024 Orders Only [facility] V[facility] at [address] [place] [address] Ivet Montana MD Atherosclerosis of kotlik artery of both lower extremities with intermittent claudication (Primary Dx); Other specified symptoms and signs involving the circulatory and respiratory systems 08/10/2024 10:15 AM TRACK INSPECTING SUPERVISOR - 08/10/2024 11:59 PM TRACK INSPECTING SUPERVISOR Hospital Encounter [facility] at the [address] [address] Arthur Bateman MD Greater trochanteric bursitis of both hips (Primary Dx); Tensor fascia shorty syndrome; Spondylosis of lumbar region without myelopathy or radiculopathy Discharge Disposition: Discharge to home or self care from Last 3 Months Immunizations Immunization Administration [...] 06/13/2003 triple bypass CARDIAC CATHETERIZATION 11/22/2018 positive [place] FOOT SURGERY 06/28/2018 Right right 1st MTP [...] N/A Procedure: CORONARY ARTERY AND GRAFT ANGIOGRAPHY [id number]; Surgeon: Clifford Sandy MD; Location: [facility] CARDIAC CASING CREW; Service: Cardiovascular; Laterality: N/A; eval ffor ischemia, hx icm CABG 2002 [facility], most recent cath at [facility] [address] Sandy Pt has pacemaker-Dr. Weber DM-on Metformin, will instruct pt to hold night prior and day of Labs done 10/03/2024, in chart Pt will be Medical devices from this surgery are in the Medical Devices section. CARDIAC CATHETERIZATION 10/16/2024 N/A Procedure: Coronary Flow Velocity (CFR) / Instantaneous Flow Velocity (IFR), 1st Vessel; Surgeon: Clifford Sandy MD; Location: [facility] CARDIAC CASING CREW; Service: Cardiovascular; Laterality: N/A; Medical devices from this surgery are in the Medical Devices section. CARDIAC CATHETERIZATION 10/16/2024 N/A Procedure: IVUS/OCT CORS OR GRAFTS, FIRST VESSEL (+) [id number]; Surgeon: Clifford Sandy MD; Location: [facility] CARDIAC CASING CREW; Service: Cardiovascular; Laterality: N/A; Medical devices from [...] Used Date Smoking Tobacco: Former Cigarettes 1 11 07 975 - 2002 Smokeless Tobacco: Never Tobacco [...] How often do you attend chur or restorationism services? 1 to 4 times per year 05/02/2021 Do you belong to any clubs o r organizations such as anabaptism groups, unions, fraternal or athletic groups, or [...] file Legal Sex Male 11:34 PM TRACK INSPECTING SUPERVISOR Gender Identity Not on file Sexual [...] Chronic Care Management No change(08/10 10:32 AM TRACK INSPECTING SUPERVISOR) No Brissa Muse, RN Note: Problem: Chronic Pain Goals: 1. Minimize further functional decline 2. Maximize quality of life 3. Control pain Strategies: - Activity/exercise program recommendation - Conservative stepwise pain medicine strategy with multi-disciplinary approach - Recommend healthy lifestyle strategies and compensatory methods as needed Medical Devices Implanted Type Area Rn Telehealth Device Identifier Shelf Expiration Date Model / Serial / Lot enMarkit Angio-Seal Vip 6fr Closere Device [id number] - [id number] - [id number] Implanted:Qty: 1 on 11/25/2022 by Eliecer Mixon MD at [facility] Collagen [employer] 06/13/2023 [id number] / [id number] / [id number] [employer] Angio-Seal Vip 6fr Closere Device [id number] - [id number] - [id number] Implanted:Qty: 1 on 10/16/2024 by Clifford Sandy MD at [facility] Collagen Left: Common Femoral Artery [employer] 05/01/2025 [id number] / [id number] / [id number] Lead (Ra)-05/08/2015 Implanted:05/08/2015 by Maty Weber MD (Quantity not on file) Lead Heart Biotronik 350 974 SETROX S 53 / [id number] / Lead (Rv)-05/08/2015 Implanted:05/08/2015 by Maty Weber MD (Quantity not on file) Lead Heart Biotronik 350 975 SETROX S 60 / [id number] / Pacemaker-05/08/2015 Implanted:05/08/2015 by Maty Weber MD (Quantity not on file) Pacemaker Left: Chest Biotronik [id number] KYLER AGUILA / [id number] / Synthes 201.814 2mm 3.5mm 14mm Self Tap Cruciform Cortex Screw Bone Stainless - S0 - [id number] Implanted:Qty: 1 on 08/06/2020 by Zoey Sexton MD at [facility] Screw Synthes I 201.814 / 0 / Medtronic Card Vasc Surgery 4.0 X 26mm Al Cavalier Rx Coronary Stent [id number] - [id number] - [id number] Implanted:Qty: 1 on 11/25/2022 by Clifford Sandy MD at [facility] Stent Medtronic Card Vasc Surgery 06/26/2025 [id number] / [id number] / [id number] Orthohelix Kxj-[id number] Maxtorque 4mm 32.5mm Cannulated Self Drill Foot Ankle Long Thread - [id number] Implanted:Qty: 1 on 06/28/2018 at [facility] Right: Foot Orthohelix MSD-010- 40-325L / / Orthohelix Woods Rider-002-Pmx Ortholink 3 Hole [place] Foot Ankle Standard Plate Bone Nonsterile Latex Free - [id number] Implanted:Qty: 1 on 06/28/2018 at [facility] Right: Foot Orthohelix LAST WAXER-002- PMX / / Orthohelix [id number] Maxlock Extreme 4mm 16mm Nonlock Foot Ankle Screw Bone Nonsterile - [id number] Implanted:Qty: 1 on 06/28/2018 at [facility] Right: Foot Orthohelix LAST WAXER-011- 4016 / / Orthohelix [id number] Maxlock Extreme 4mm 18mm Nonlock Foot Ankle Screw Bone Nonsterile Latex Free - [id number] Implanted:Qty: 1 on 06/28/2018 at [facility] Right: Foot Orthohelix LAST WAXER-011- 40-18 / / Orthohelix [id number] Maxlock Extreme 4mm 14mm Nonlock Foot Ankle Screw Bone Nonsterile Latex Free - [id number] Implanted:Qty: 1 on 06/28/2018 at [facility] Right: Foot Orthohelix LAST [id number] / / Daig Lewis[employer] [id number] Angio-Seal Evolution 6fr .035in Guidewire Bypass Tube Suture - [id number] Implanted:Qty: 1 on 11/22/2018 by Sarah Vasquez MD at [facility] [employer]ig [employer] 08/12/2019 [id number] / / [id number] Medtronic Sofamor Danek [id number] Infuse 14mm 23mm Absorbable Sponge Sterile Water Syringe Needle - [id number] Implanted:Qty: 1 on 06/02/2019 by Zoey Sexton MD at [facility] Right: Foot Medtronic Inc 01/11/2021 [id number] / / [id number] A[employer] Inc [id number] Plate Bone Medline Unite 0 D Medium Metatarsophalangeal Right Fusion Nonsterile - [id number] Implanted:Qty: 1 on 06/02/2019 by Zoey Sexton MD at [facility] Right: Foot [employer] Inc [id number] / / [employer] Inc [id number] Pin Fixation Medline Unite L10mm Od1.1mm - [id number] Implanted:Qty: 1 on 06/02/2019 by Zoey Sexton MD at [facility] Right: Foot [employer] [id number] / / [employer] Inc [id number] Screw Bone Medline Unite L34mm Od4.5mm Head Nonsterile - [id number] Implanted:Qty: 1 on 06/02/2019 by Zoey Sexton MD at [facility] Right: Foot [employer] Inc [id number] / / [employer] Inc [id number] Screw Bone Medline Unite L16mm Od3.5mm Foot Ankle Nonlock - [id number] Implanted:Qty: 1 on 06/02/2019 by Zoey Sexton MD at [facility] Right: Foot [employer] [id number] / / [employer] Inc [id number] Screw Bone Medline Unite L18mm Od3.5mm Foot Ankle Nonlock - [id number] Implanted:Qty: 1 on 06/02/2019 by Zoey Sexton MD at [facility] Right: Foot [employer] Inc [id number] / / [employer] Inc [id number] Screw Bone Medline Unite L20mm Od3.5mm Foot Ankle Nonlock - [id number] Implanted:Qty: 2 on 06/02/2019 by Zoey Sexton MD at [facility] Right: Foot [employer] Inc [id number] / / [employer] Triathlon Cruciate Retain Bead Knee Left 5 Component Femoral Pa 5517-F-501 - [id number] Implanted:Qty: 1 on 04/24/2024 by Zbigniew Noel MD at [facility] [employer] [id number] 02/27/2029 5517-F-5 / / [id number] [employer] Triathlon Knee 6 Baseplate Tibial Tritanium 5536-B-600 - [id number] Implanted:Qty: 1 on 04/24/2024 by Zbigniew Noel MD at [facility] [employer] [id number] 11/08/2028 5536-B-6 00 / / [id number] [employer] Insert Tibial Triathlon 6 H11mm Knee Bearing Condylar Stabilize Sterile 8560-G-627-E - [id number] Implanted:Qty: 1 on 04/24/2024 by Zbigniew Noel MD at [facility] [employer] [id number] 12/19/2028 5531-G-6 11-E / / [id number] Explanted Type Area Rn Telehealth Device Identifier Shelf Expiration Date Model / Serial / Lot [employer] [id number] Anne .45in 9in 1 Trocar Point [employer] Wire Fixation - S0 - [id number] Explanted:Qty: 1 on 08/06/2020 by Zoey Sexton MD at [facility] Wire [employer] [id number] S / 0 / Description:Provisional fixa tion [employer] [id number] Anne .062in 9in 1 Trocar Smooth Wire Fixation - [id number] Explanted:Qty: 1 on 06/28/2018 at [facility] Right: Foot [employer] [id number] / / Description:Provisional fixa tion [employer] [id number] Anne .062in 9in 1 Trocar Smooth Wire Fixation - [id number] Explanted:Qty: 1 on 06/28/2018 at [facility] Right: Foot [employer] [id number] / / Description:Provisional fixa tion [employer] [id number] Anne .062in 9in 1 Trocar Smooth Wire Fixation - [id number] Explanted:Qty: 1 on 06/28/2018 at [facility] Right: Foot [employer] [id number] / / Description:Provisional fixa tion Screw Explanted:Qty: 5 on 08/06/2020 by Zoey Sexton MD at [facility] Other / 0 / Plate Explanted:Qty: 1 on 08/06/2020 by Drew Espinosa MD at [facility] Other / 0 / Procedures Procedure Name Priority Date/Time Associated Diagnosis Comments SCAN - RADIOLOGY/IMAGING 10/31/2024 2:18 PM CDT EGFR Routine 10/18/2024 10:10 AM CDT High risk medications (not anticoagulants) long-term use BASIC METABOLIC PANEL Routine 10/18/2024 10:10 AM CDT High risk medications (not anticoagulants) long-term use POCT GLUCOSE DEVICE Routine 10/16/2024 3 :20 PM CDT CORONARY OCT, 1ST VESSEL Routine 10/16/2024 2:35 PM CDT Coronary artery disease involving kotlik heart without angina pectoris, unspecified vessel or lesion type CORONARY FLOW VELOCITY (CFR) / INSTATANEOUS FLOW VELOCITY (IFR), 1ST VESSEL Routine 10/16/2024 2:35 PM CDT Coronary artery disease involving kotlik heart without angina pectoris, unspecified vessel or lesion type RIGHT CORONARY ANGIOGRAPHY Routine 10/16/2024 2:35 PM CDT Coronary artery disease involving kotlik heart without angina pectoris, unspecified vessel or [...] Routine) 10/04/2024 2:41 PM CDT Atherosclerosis of kotlik artery of both lower extremities with intermittent claudication PRO B-TYPE NATRIURETIC PEPTIDE Routine 10/03/2024 11:50 AM CDT Coronary artery disease involving kotlik coronary artery of kotlik heart without angina pectoris BASIC METABOLIC PANEL Routine 10/03/2024 11:50 AM CDT Coronary artery disease involving kotlik coronary artery of kotlik heart without angina pectoris CBC WITH AUTO DIFFERENTIAL Routine 10/03/2024 11:50 AM CDT Coronary artery disease involving kotlik coronary artery of kotlik heart without angina pectoris TRANSTHORACIC ECHO (TTE) COMPLETE W DOPPLER/CF W CONTRAST Routine 10/03/2024 10:29 AM CDT Cardiomyopathy, ischemic VL US ARTERIAL DUPLEX LOWER EXTREMITY BILATERAL Schedule Routine, Read Routine (OP Routine) 09/05/2024 10:30 AM CDT Atherosclerosis of kotlik artery of both lower extremities with intermittent claudication US SANTIAGO Schedule Routine, Read Routine (OP Routine) 09/05/2024 10:30 AM CDT Atherosclerosis of kotlik artery of both lower extremities with intermittent claudication US DUPLEX SCAN AORTA, IVC ILIAC COMPLETE Schedule Routine, Read Routine (OP Routine) 09/05/2024 10:30 AM CDT Atherosclerosis of kotlik artery of both lower extremities with intermittent claudication Other specified symptoms and signs involving the circulatory and respiratory systems POCT HEMOGLOBIN A1C Routine 09/04/2024 10:38 AM CDT Diabetes mellitus type II, non insulin dependent (HCC) PAIN MGMT IMAGING SHOULDER, HIP, KNEE JOINT/BURSA INJ BILATERAL Schedule Routine, Read Routine (OP Routine) 08/10/2024 11:30 AM TRACK INSPECTING SUPERVISOR Greater trochanteric bursitis of both hips CTA ABDOMINAL AORTA AND BILATERAL ILIOFEMORAL RUNOFF Schedule Routine, Read Routine (OP Routine) 09/27/2023 11:27 AM CDT Claudication in peripheral vascular disease POCT LIPID PANEL Routine 09/21/2023 9:27 AM CDT Mixed hyperlipidemia PSA SCREEN Routine 06/17/2023 10:13 AM TRACK INSPECTING SUPERVISOR Prostate cancer screening COLONOSCOPY 01/01/2021 12:16 PM CDT from Last 3 Months or Most Recently Relevant to Health Maintenance Results * SCAN - RADIOLOGY/IMAGING (10/31/2024 2:18 PM CDT) Anatomical Region Laterality Modality Other us Perry Romero MD Final Result * eGFR (10/18/2024 10:10 AM CDT) eGFR [...] 0 AM CDT 10/18/2024 4:30 PM CDT Rigo Carroll MD LAB BLOOD ORDERABLES F inal Result [facility] [id number] [address] Department [place] [address] * Basic metabolic panel (10/18/2024 10:10 AM CDT) Sodium 137 135 - 145 mmol/L Potassium, pl 4.3 3.3 - 4.9 mmol/L [facility] Chloride 101 97 - 110 mmol/L [facility] CO2 22 22 - 32 mmol/L [facility] Anion gap 14 2 - 15 mmol/L [facility] BUN 18 6 - 25 mg/dL [facility] Creatinine 1.14 0.80 - 1.30 mg/dL [facility] Glucose 130 70 - 199 mg/dL [facility] Comment: Interpretive Data Fasting glucose >/= [...] 2022. Calcium 10.0 8.5 - 10.3 mg/dL [facility] Blood 10/18/2024 10:1 0 AM CDT 10/18/2024 3:54 PM CDT Rigo Carroll MD LAB BLOOD ORDERABLES F inal Result [facility] [address] [address] Department [place] [address] * POCT glucose (10/16/2024 3:20 PM CDT) Glucose, POC 95 70 - 199 mg/dL Blood 10/16/2024 3:20 PM CDT 10/16/2024 3:20 PM CDT us Clifford Sandy MD LAB POCT ORDERABLES - DEVICE Final Result [facility] Department [place] [address] * RIGHT CORONARY ANGIOGRAPHY, CORONARY FLOW VELOCITY [...] and OM2 Known atretic KAUR to LAD OUTREACH COUNSELOR of the mid RCA THERAPEUTIC RECOMMENDATIONS: Left [...] result were not included. Cardiovascular Procedure Center [facility] [address] [place] [id number] CORONARY AND GRAFT REPORT Patient: Vicky Youssef : 1955 MR number: [id number] Date of Service: 10/16/2024 Analytical Research Chemist: Clifford Sandy MD Fellow: Salvador Arita MD and Madalyn Reynaga MD Referring physician: Rigo Carroll MD INDICATION: worsening LV function, dyspnea PATIENT CLINICAL PROFILE: Vicky Youssef is a 69 y.o. male with a history of CABG s/p KAUR-LAD (atretic), SVG-Ramus/high OM, SVG-OM2, PCI to LM-LAD with a 4.0 mm Al Cavalier SHEMAR, mild LV dysfunction, who is presenting with worsening LV dysfunction and some dyspnea on exertion. PROCEDURE: The risks, benefits and alternatives of the procedures and moderate sedation were explained to the patient and informed consent was obtained. The patient was brought to the clinical laboratory manager and placed on the table. Bilateral groins were prepped and draped in the usual sterile fashion. Ultrasound guidance was used to obtain access. I provided direct npir-[id number] moderate conscious sedation which administered by independent [...] with Angioseal. [facility] in stable condition. RESULTS: Hemodynamics: Systemic [...] The RCA has slow flow and a OUTREACH COUNSELOR in the mid segment which is unchanged [...] made to defer intervention COMPLICATIONS: None. DIAGNOSTIC us Rigo Carroll MD CV CARDIAC CATH PROCED URES Final Result * (ABNORMAL) POCT Activated clotting time, low range (10/16/2024 2:30 PM CDT) ACT 231(H) 123 - 168 sec POC Performer [id number] [facility] POC Device Number [id number] [facility] Blood 10/16/2024 2:30 PM CDT 10/16/2024 2:30 PM CDT Clifford Sandy MD LAB POCT ORDERABLES - DEVICE Final Result Performing Organization Address City/[facility] Co de Phone Number [id number] [place] [address] * (ABNORMAL) POCT Activated clotting time, low range (10/16/2024 2:11 PM CDT) [facility] ACT 269(H) 123 - 168 sec POC Performer [id number] [facility] POC Device Number [id number] [facility] Blood 10/16/2024 2:11 PM CDT 10/16/2024 2:11 PM CDT Clifford Sandy MD LAB POCT ORDERABLES - DEVICE Final Result Performing Organization Address [facility] Co de Phone Number [facility] Department [place] [address] * CBC without differential (10/16/2024 12:35 PM CDT) [facility] WBC See Comment 380 - 9.90 Comment:Credited, specimen c lotted. Hgb See Comment 13.0 - 17.5 [facility] Comment:Credited, specimen c lotted. Hct See Comment 38.9 - 50.3 [facility] Comment:Credited, specimen c lotted. Plt See Comment 150 - 400 [facility] Comment:Credited, specimen c lotted. MPV See Comment 9.1 - 12.3 [facility] Comment:Credited, specimen c lotted. RBC See Comment 4.30 - 5.80 [facility] Comment:Credited, specimen c lotted. MCV See Comment 81.3 - 96.4 [facility] Comment:Credited, specimen c lotted. MCH See Comment 27.1 - 33.3 [facility] Comment:Credited, specimen c lotted. MCHC See Comment 32.3 - 35.7 [facility] Comment:Credited, specimen c lotted. RDW CV See Comment 11.1 - 14.9 [facility] Comment:Credited, specimen c lotted. RDW SD See Comment 35.7 - 48.1 [facility] Comment:Credited, specimen c lotted. NRBC abs See Comment 0.00 - 0.01 [facility] Comment:Credited, specimen c lotted. Blood 10/16/2024 12:3 5 PM CDT 10/16/2024 2:05 PM CDT Narrative [facility] - 10/16/2024 2:33 PM CDT To be drawn after hydration bolus complete Clifford Sandy MD LAB BLOOD ORDERABLES Final Result Performing Organization Address City/[facility]/ZIP Co de Phone Number [facility] Department [place] [address] * POCT glucose (10/16/2024 9:19 AM CDT) [facility] Glucose, POC 118 70 - 199 mg/dL Blood 10/16/2024 9:19 AM CDT 10/16/2024 9:19 AM CDT Clifford Sandy MD LAB POCT ORDERABLES - DEVICE Final Result Performing Organization Address City/[facility] Co de Phone Number [facility] Department [place] [address] * ECG 12 lead (10/16/2024 8:32 AM CDT) Ventricular Rate EKG/Min 70 BPM [facility] Atrial Rate 70 BPM [facility] KS-Interval (MSEC) 304 ms [facility] QRS-Interval (MSEC) 132 ms [facility] QT-Interval (MSEC) 374 ms [facility] QTc 403 ms [facility] P Sturgis 2 degrees [facility] R Sturgis 1 degrees [facility] T Sturgis 252 degrees [facility] Diagnosis Atrial-paced rhythm with prolonged AV conduction Left ventricular hypertrophy with QRS widening and repolarization abnormality ( Sokolow-Pereira , Philip product ) Cannot rule out Septal infarct , age undetermined Abnormal ECG When compared with ECG of 25-NOV-2022 12:06, no significant change Confirmed by ERNESTINE TAVERAS M.D ([id number]) on 10/17/2024 3:04:55 PM [facility] 10/16/2024 8:32 AM CDT 10/17/2024 3:04 PM CDT Clifford Sandy MD ECG ORDERABLES Lilia bobby Result [facility] * DEVICE CHECK - REMOTE (10/08/2024 3:10 AM CDT) Anatomical Region Laterality Modality Other 10/08/2024 3:10 AM CDT Narrative 10/11/2024 11:10 AM CDT Interpretation Summary: Battery and Leads (BL) Normal parameters noted on battery and lead(s) --- 35% remaining longevity (implanted 2014). Lead impedance, sensing, and threshold trends stable and appropriate. Presenting Rhythm (KS) Atrial Pacing-Ventricular Pacing (AP-LATHE SPOTTER) --- AP/LATHE SPOTTER 70s. Arrhythmic events (AE) No new arrhythmic [...] and threshold trends stableand appropriate. Presenting Rhythm (KS) Atrial Pacing-Ventricular Pacing (AP-LATHE SPOTTER) --- AP/LATHE SPOTTER 70s. Arrhythmic events (AE) No new arrhythmic [...] Study Date: 10/04/2024 1:37:00 PM Gender: M [employer]: Leandra Frazier RN/RVT Ref Provider: IVET MONTANA Quality: Adequate Order Provider: IVET MONTANA PROCEDURES: Arterial Report: Bilateral lower extremity arterial Doppler exam at rest and with exercise. INDICATIONS: I70.213 Atherosclerosis of kotlik arteries of extremities with intermittent claudication, bilateral legs. HISTORY: Claudication lower extremities L>R. HTN/HLD/DM/CAD/PREV SMOKER. COMPARISONS: The previous exam was completed on 09/05/2024. Compared to prior RT PT/DP .89/.53 LT PT/DP .92/.74. MEASUREMENTS: Right Value Left Value Rt Brachial Pressure 158 mmHg Lt Brachial Pressure 151 mmHg Rt CAKE DECORATOR Pressure 169 mmHg Lt CAKE DECORATOR Pressure 163 mmHg Rt DPA Pressure 164 [...] Study Date: 10/04/2024 1:37:00 PM Gender: M [employer]ator [employer]: Leandra Frazier RN/RVT Ref Provider: IVET MONTANA Quality: Adequate Order Provider: IVET MONTANA PROCEDURES: Arterial Report: Bilateral lower extremity arterial Doppler exam at rest and withexercise. INDICATIONS: I70.213 Atherosclerosis of kotlik arteries of extremities withintermittent claudication, bilateral legs. HISTORY: Claudication lower extremities L>R. HTN/HLD/DM/CAD/PREV SMOKER. COMPARISONS: The previous exam was completed on 09/05/2024. Compared to prior RT PT/DP .89/.53 LT PT/DP .92/.74. MEASUREMENTS: Right Value Left Value Rt Brachial Pressure 158 mmHg Lt Brachial Pressure 151 mmHg Rt CAKE DECORATOR Pressure 169 mmHg Lt CAKE DECORATOR Pressure 163 mmHg Rt DPA Pressure 164 [...] 1:31:20 PM CDT us Ivet Montana MD [facility] US PROCEDURES Final Result * Pro B-type [...] et.al. Eur Heart J. 2006:27:330-337. 2. Lexus RW, Cleo NAVARRO. J. AM Wilver Cardiol: Cardiovasc Imag. 2009;2: 216- 225. Interpretive Data Last Revised Date: 2018. Blood 10/03/2024 11:5 0 AM CDT 10/03/2024 1:23 PM CDT us Rigo Carroll MD LAB BLOOD ORDERABLES F inal Result [facility] Department [place] [address] * CBC with auto differential (10/03/2024 11:50 [...] IM C[facility] * Basic metabolic panel (10/03/2024 11:50 AM CDT) Pathologist [facility] Glucose 97 64 - 99 mg/dL [facility] [...] [facility] [place] [address] Transthoracic Echocardiographic Report Patient Name: VICKY YOUSSEF D : 1955 (69y 6m) Gender: M Study Date: 10/03/2024 09:38:56 AM Ht(Inch): 71 Wt(Lb): 210.98 BSA: 2.19 [employer]ator [employer]: Soco Marcano RDCS [facility] [...] LA Length 4C 5.23 cm AI Decel [place] 2.86 m/s2 LA Length 2C 4.36 cm [...] [facility] [place] [address] Transthoracic Echocardiographic Report Patient Name: VICKY YOUSSEF D : 1955 (69y 6m) Gender: M Study Date: 10/03/2024 09:38:56 AM Ht(Inch): 71 Wt(Lb): 210.98 BSA: 2.19 Curator [employer]: Soco Marcano RDCS [facility] [...] [ -25.0 - -18.0 ] AI Decel Ktlc6330.25 sec LA Length 4C 5.23 cm AI Decel Slope2.86 m/s2 LA Length 2C 4.36 cm AI KRM763.99 msec LA Volume BP 50.69 ml Lat E` Vel4.0 cm/sec [ 10.0 - 25.0 ] LA Volume Index 23.15 ml/m2 [ 16.00 - 34.00 ] RV S`7.62 cm/sec RV Base Dimen 2D 3.9 cm [ 2.5 - 4.2 ] PV Peak Vel0.8 m/s [ 0.4 - 0.8 ] TAPSE 0.94 cm [ 1.71 - 5.00 ] PV Peak PG2.56 mmHg RA Syrkax07.65 ml RA Volume Index17.19 ml/m2 IVC Diam1.47 [...] PM CDT [facility] [address] [facility] [place] [address] Lower Extremity Arterial Duplex Report Patient Name: VICKY YOUSSEF D : 1955 (69y 5m) Gender: M Study Date: 09/05/2024 09:33:41 AM Ht(Inch): Wt(Lb): BSA: [employer]ator [employer]: CORI Location: [facility] Order Provider: IVET MONTANA Quality: Adequate Ref Provider: IVET MONTANA PROCEDURES: Arterial Report: A non-invasive vascular imaging study of the bilateral lower extremity arteries was performed using B-mode ultrasound, color flow, and spectral Doppler. INDICATIONS: R>L claudication, remote hx BCIA stents. HISTORY: HTN. HLD. DM. CAD-MT S/P stent/CABG. Afib. Pacemaker. Former smoker. COMPARISONS: Prior CTA on 09/27/23. MEASUREMENTS: Right Value Left Value Rt COMMERCIAL DIVER Dst PSV 77.00 cm/sec Lt COMMERCIAL DIVER Dst PSV 87.00 cm/sec Rt Profunda Prx [...] - 09/06/2024 [facility] [address] [facility] [place] [address] Lower Extremity Arterial Duplex Report Patient Name: VICKY YOUSSEF D : 1955 (69y 5m) Gender: M Study Date: 09/05/2024 09:33:41 AM Ht(Inch): Wt(Lb): BSA: [employer]ator [employer]: Location: [facility] Order Provider: IVET MONTANA Quality: Adequate Ref Provider: IVET MONTANA PROCEDURES: Arterial Report: A non-invasive vascular imaging study of the bilaterallower extremity arteries was performed using B-mode ultrasound, color flow, and spectralDoppler. INDICATIONS: R>L claudication, remote hx BCIA stents. HISTORY: HTN. HLD. DM. CAD-MT S/P stent/CABG. Afib. Pacemaker. Former smoker. COMPARISONS: Prior CTA on 09/27/23. MEASUREMENTS: Right Value Left Value Rt COMMERCIAL DIVER Dst PSV 77.00 cm/sec Lt COMMERCIAL DIVER Dst PSV 87.00 cm/sec Rt Profunda Prx [...] 2:37 PM CDT [facility] [address] [place] [address]. [place] [address] Lower Extremity Arterial Doppler Report Patient Name: VICKY YOUSSEF Griselda : 1955 Study Date: 09/05/2024 8:50:00 AM Gender: M Curator [employer]: Maureen Vásquez RVT Location: [facility] Ref Provider: IVET MONTANA Quality: Adequate Order Provider: IVET MONTANA PROCEDURES: Arterial Report: Ankle - Brachial Index Doppler exam. INDICATIONS: Remote hx BCIA stents; R>L claudication. HISTORY: HTN. HLD. DM. CAD-MT S/P stent/CABG. Afib. Pacemaker. Former smoker. COMPARISONS: The previous exam was completed on 11/19/23. Compared to prior there is disease progression at bilateral dorsalis pedis arteries. MEASUREMENTS: Right Value Left Value Rt Brachial Pressure 159 mmHg Lt Brachial Pressure 146 mmHg Rt CAKE DECORATOR Pressure 142 mmHg Lt CAKE DECORATOR Pressure 147 mmHg Rt DPA Pressure 84 [...] MD - 09/06/2024 [facility] [address] [place] [address] Lower Extremity Arterial Doppler Report Patient Name: VICKY YOUSSEFGriselda : 1955 Study Date: 09/05/2024 8:50:00 AM Gender: M Curator [employer]: Maureen Vásquez RVT Location: [facility] Ref Provider: IVET MONTANA Quality: Adequate Order Provider: IVET MONTANA PROCEDURES: Arterial Report: Ankle - Brachial Index Doppler exam. INDICATIONS: Remote hx BCIA stents; R>L claudication. HISTORY: HTN. HLD. DM. CAD-MT S/P stent/CABG. Afib. Pacemaker. Former smoker. COMPARISONS: The previous exam was completed on 11/19/23. Compared to prior there is disease progression at bilateral dorsalis pedisarteries. MEASUREMENTS: Right Value Left Value Rt Brachial Pressure 159 mmHg Lt Brachial Pressure 146 mmHg Rt CAKE DECORATOR Pressure 142 mmHg Lt CAKE DECORATOR Pressure 147 mmHg Rt DPA Pressure 84 [...] Ivet Montana MD 09/06/2024 1:45:46 PM CDT Ivet Montana MD IMG US PROCEDURES Final Result * US Duplex Scan Aorta, IVC Iliac Complete (09/05/2024 10:30 AM CDT) Anatomical Region Laterality Modality Vascular N/A Ultrasound 09/05/2024 8:52 AM CDT Narrative 09/06/2024 2:37 PM CDT [facility] [address] [place] [address]. [place] [address] Abdominal Aortic Duplex Ultrasound Report Patient Name: VICKY YOUSSEF D : 1955 Study Date: 09/05/2024 8:52:47 AM Gender: M Curator [employer]: Location: [facility] Ref Provider: IEVT MONTANA Quality: Adequate Order Provider: IVET MONTANA [...] MD - 09/06/2024 [facility] [address] [place] [address] Abdominal Aortic Duplex Ultrasound Report Patient Name: VICKY YOUSSEFGriselda : 1955 Study Date: 09/05/2024 8:52:47 AM Gender: M Curator [employer]: CORI Location: [facility] Provider: IVET MONTANA Quality: Adequate Order Provider: [...] INJ INJ Bilateral () (08/10/2024 11:30 AM TRACK INSPECTING SUPERVISOR) Narrative [facility] - 08/10/2024 11:30 AM TRACK INSPECTING SUPERVISOR The images from this study are not interpreted by Radiology. Please refer to the physician's procedure / OR operative note. Charlene Krishnan MD [facility] PAIN MGMT PROCEDURES F inal Result [facility] [...] Result * PSA screen (06/17/2023 10:13 AM TRACK INSPECTING SUPERVISOR) [facility] PSA 0.4 0.0 - 4.0 ng/mL [facility] - Comment: Shahbaz ECLIA methodology. According to the [employer] [employer], Serum PSA should decrease and [...] malignant disease. Blood 06/17/2023 10:1 3 AM TRACK INSPECTING SUPERVISOR 06/17/2023 Narrative [facility] - 06/18/2023 6:11 AM TRACK INSPECTING SUPERVISOR Performed at: [address] [place] [id number] Wood Type Finisher: Edgar Menard PhD, Phone: [phone] us Mamie Rose NP LAB BLOOD ORDERABLES Fin al Result [facility] - * COLONOSCOPY (01/01/2021 12:16 PM CDT) Anatomical Region Laterality Modality Other Narrative Procedure Note Emily Zeng MD - 01/01/2021 12:16 PM CDT [facility] END[facility] Patient Name: Vicky Youssef Procedure Date: 01/01/2021 12:16 PM Date of : 1955 Admit Type: Outpatient Age: 65 Gender: Male Attending MD: Huy Reed Room: [facility] ENDOSCOPY ROOM 3 Note Status: [...] passed under direct vision.The CF HQ [id number] endoscope was introducedthrough the anus and advanced to the cecum, identified by appendiceal orifice and ileocecal valve. The colonoscopy was performed without difficulty. The patient tolerated the procedure well. The qualityof the bowel preparation was evaluated using the BBPS ([place] Bowel Preparation Scale) with scores of:Right Colon [...] On: 01/01/2021 12:16 PM Recognized by the [employer] for promoting quality in endoscopy Emily Zeng MD ENDOSCOPY PROCEDUR ES Final Result from Last 3 Months or Most Recently Relevant to Health Maintenance Insurance [facility] [id number] MEDICARE [facility] MEDICARE SUPPLEMENT MEDICARE [facility] MEDICARE MEDICARE [facility] MEDICARE SUPPLEMENT MEDICARE [facility] MEDICARE SUPPLEMENT MEDICARE [facility] BLUE CROSS MEDICARE SUPPLEMENT Advance Directives For more information, please contact: [phone] * Full Code (Latest Code Status on [...] 4:34 PM 05/02/2021 4:45 PM Care Teams Rn Wound Care Relationship Specialty Start Date End Date Perry Romero MD PCP - General Internal Medicine 02/23/20 Rigo Carroll MD Director Sales Support Cardiology 05/23/19 Love Jones, PT Physical Therapist Physical Therapy 09/28/22 Arthur Bateman MD [id number] [address] Referring Physician Anesthesiology 09/28/22 Karl Cha MD [facility] [address] [place] [id number] Referring Physician Orthopedic Surgery 11/24/23
--- OUTSIDE RECORDS SUMMARY | 2024-11-02 09:23 | XMS_ITS | Referral Summary ---
Author Organization [facility] Address [address] [place] [address] Care Team Providers Care Dip Painter Name Role Phone Rigo Carroll MD Unavailable [phone] Perry Romero MD Primary Care Provider [phone] Love Jones PT Unavailable Unavailab Arthur Law MD Unavailable Karl Cha MD Unavailable [phone] Encounters Date Type Department Care Team Description 11/01/2024 Telephone [facility] Cardiology [address] [facility] Medicine 8th [place] [address] [place] [address] Rigo Carroll MD 10/31/2024 Orders Only [facility] [address] [facility] [address] [place] [phone] Perry Romero MD 10/25/2024 1:00 PM CDT Office Visit [facility] Orthopaedic Surgery [address] [facility] 6th [place] [address] [place] [phone] Sudhir Martinez MD Greater trochanteric pain syndrome of right lower extremity (Primary Dx); Chronic right hip pain; Chronic knee pain after total replacement of left knee joint 10/23/2024 Telephone [facility] [address] [facility] 8th [place] [address] [place] [phone] Rigo Carroll MD BP updates 10/18/2024 Results Follow-Up [facility] [address] [facility] 8th [place] [address] [place] [address] Rigo Carroll MD Basic metabolic panel, eGFR 10/18/2024 10:10 AM CDT - 10/18/2024 11:59 PM CDT Hospital Encounter [facility] [place] [id number] [place] [address] High risk medications (not anticoagulants) long-term use Discharge Disposition: Discharge to home or self care 10/18/2024 10:15 AM CDT Lab [facility] Outpatient Lab at [address] [address] Diabetes mellitus type 2 without retinopathy (HCC) (Primary Dx); High risk medications (not anticoagulants) long-term use 10/16/2024 Results Follow-Up [facility] [address] [facility] 8th [place] [address] [place] [address] Rigo Carroll MD Cardiac Catheterization 10/16/2024 10:45 AM CDT - 10/16/2024 12:25 PM CDT Surgery [facility] [address] [place] [phone] Clifford Sandy MD CORONARY ARTERY AND GRAFT ANGIOGRAPHY 09062 10/16/2024 8:28 AM CDT - 10/16/2024 5:00 PM CDT Hospital Encounter [facility] [address] [address] Clifford Sandy MD Coronary artery disease involving blackfeet heart without angina pectoris, unspecified vessel or lesion type Discharge Disposition: Discharge to home or self care 10/11/2024 Orders Only [facility] Health Information Management [address] [place] [address] Scanning, Provider 10/11/2024 Orders Only [facility] Vascular at [address] [place] [address] Ivet Montana MD Atherosclerosis of blackfeet artery of both lower extremities with intermittent claudication (Primary Dx); Other specified symptoms and signs involving the circulatory and respiratory systems 10/11/2024 8:45 AM CDT Office Visit [facility] Vascular at [address] [place] [address] Ivet Montana MD Peripheral vascular disease (Primary Dx); Primary hypertension; Mixed hyperlipidemia 10/05/2024 Telephone [facility] Cardiology [facility] [address] [place] [address] [place] [address] Rigo Carroll MD follow up of previous orders 10/05/2024 10:00 AM CDT Office Visit [facility] Ophthalmology [address] [facility] 1st [place] [address] Sherri Jean-Baptiste MD 10/04/2024 1:17 PM CDT - 10/04/2024 11:59 PM CDT Hospital Encounter [facility] Medical Office Building [address] [address] Atherosclerosis of blackfeet artery of both lower extremities with intermittent claudication Discharge Disposition: Discharge to home or self care 10/03/2024 Results Follow-Up [facility] Cardiology [address] [place] [address] [place] [address] [place] [address] Rigo Carroll MD Pro B-type natriuretic peptide 10/03/2024 Results Follow-Up [facility] [address] [place] [address] [place] [address] [place] [address] Rigo Carroll MD CBC with auto differential, Basic metabolic panel 10/03/2024 Telephone [facility] [address] [place] [address] [place] [address] [place] [address] Rigo Carroll MD Cath orders 10/03/2024 11:50 AM CDT - 10/03/2024 11:59 PM CDT Hospital Encounter [facility] [address] [place] [address] Coronary artery disease involving blackfeet coronary artery of blackfeet heart without angina pectoris Discharge Disposition: Discharge to home or self care 10/03/2024 11:45 AM CDT Lab [facility] Endocrinology Metabolism and Lipid [address] [facility] 8th [place] [address] [place] [address] Coronary artery disease involving blackfeet coronary artery of blackfeet heart without angina pectoris 10/03/2024 9:15 AM CDT - 10/03/2024 11:59 PM CDT Hospital Encounter [facility] Cardiac Diagnostic Lab [address] [facility] 8th [place] [address] Cardiomyopathy, ischemic Discharge Disposition: Discharge to home or self care 10/03/2024 10:30 AM CDT Office Visit [facility] Cardiology [address] [facility] 8th [place] [address] [place] [address] Rigo Carroll MD Coronary artery disease involving blackfeet coronary artery of blackfeet heart without angina pectoris (Primary Dx); Primary hypertension; Pure hypercholesterolemia; Peripheral vascular disease; Presence of cardiac pacemaker 09/13/2024 Orders Only [facility] Vascular at [address] [address] Ivet Montana MD Atherosclerosis of blackfeet artery of both lower extremities with intermittent claudication (Primary Dx) 09/13/2024 8:30 AM CDT Office Visit [facility] Vascular at [address] [address] Ivet Montana MD Peripheral vascular disease (Primary Dx); Mixed hyperlipidemia; Primary hypertension 09/05/2024 10:00 AM CDT Ancillary Procedure [facility] Vascular and Vein Surgery at [address] [address] Atherosclerosis of blackfeet artery of both lower extremities with intermittent claudication 09/05/2024 10:00 AM CDT Ancillary Procedure [facility] Vascular and Vein Surgery at [address] [address] Atherosclerosis of blackfeet artery of both lower extremities with intermittent claudication 09/05/2024 9:00 AM CDT Ancillary Procedure [facility] Vascular and Vein Surgery at [address] [address] Atherosclerosis of blackfeet artery of both lower extremities with intermittent claudication; Other specified symptoms and signs involving the circulatory and respiratory systems 09/04/2024 10:30 AM CDT Office Visit [facility] [address] [address] Perry Romero MD Diabetes mellitus type II, non insulin dependent (HCC) (Primary Dx); Sick sinus syndrome (CMS/HCC) (HCC); Primary hypertension; Coronary artery disease involving blackfeet heart without angina pectoris, unspecified vessel or lesion type 08/30/2024 Orders Only [facility] at [address] [phone] Ivet Montana MD Atherosclerosis of blackfeet artery of both lower extremities with intermittent claudication (Primary Dx); Other specified symptoms and signs involving the circulatory and respiratory systems 08/30/2024 9:15 AM CDT Office Visit [facility] V[facility] at [address] [phone] Rosana Fink NP Peripheral vascular disease (Primary Dx); Mixed hyperlipidemia; Primary hypertension 08/10/2024 10:15 AM SHEEP CLIPPER - 08/10/2024 11:59 PM SHEEP CLIPPER Hospital Encounter [facility] at the [address] [address] Arthur Bateman MD Greater trochanteric bursitis of both hips (Primary Dx); Tensor fascia shorty syndrome; Spondylosis of lumbar region without myelopathy or radiculopathy Discharge Disposition: Discharge to home or self care from Last 3 Months Allergies Active Allergy Reactions Criticality Noted Date Comments Qmnwxcg-Qih-Hka Reductase Inhibitors Other (See comments) Low 05/03/2024 Pt has an intolerance to statin drugs. 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 90 tablet 3 025 Active [...] daily 30 tablet 11 025 2025 Active empagliflozin (JARDIANCE) 10 mg tablet Take 1 tablet (10 mg total) by mouth daily 30 tablet 11 025 Active amLODIPine (NORVASC) 2.5 mg tablet TAKE 1 TABLET(2.5 MG) BY MOUTH DAILY 90 tablet 3 025 Active sacubitriL-valsarta n (ENTRESTO) 24-26 mg tabletIndications:c hronic heart failure Take 1 tablet by mouth 2 (two) times a day 60 tablet 11 025 2024 Active tamsulosin (FLOMAX) 0.4 mg extended release capsuleIndications: Nocturia Take 1 capsule (0.4 mg total) by mouth daily 30 capsule 11 021 2021 Discontinued amLODIPine (NORVASC) 2.5 mg tablet TAKE 1 TABLET(2.5 MG) BY MOUTH DAILY 90 tablet 3 024 2024 Discontinued sacubitriL-valsarta n (ENTRESTO) 24-26 mg tabletIndications:c hronic heart failure Take 1 tablet by mouth 2 (two) times a day 60 tablet 11 025 2024 Discontinued(R eoiselaer) Active Problems Problem Noted Date Diagnosed Date Greater trochanteric bursitis of both hips 08/10 Tensor fascia shorty syndrome 08/10/2024 Osteoarthritis of left knee, unspecified osteoarthritis type 04/24/2024 Primary osteoarthritis of left knee 02/18/2024 Generalized anxiety disorder 10/13/2023 Recurrent major depression 10/13/2023 Dysthymia 10/13/2023 Arthralgia of both knees 07/07/2023 Chronic midline low back pain without sciatica 0 06/17/2023 Assessment & Plan (06/17/2023 10:00 AM SHEEP CLIPPER): Continue flexeril 10mg Q8 PRN Trial gabapentin 100mg Q8 TID Topical lidocaine patches 4%, on for 12 hours/off for 12 hours Will send [place] 5/325 PRN #28, discussed that this will [...] 07/21/2021 Assessment & Plan (07/21/2021 9:52 AM SHEEP CLIPPER): Baseline creatine 1.3-1.5 Creatine Within patient;s baseline at 1.3 CTM Received IV fluids 500 ml on admission for creatine 1.59 Statin intolerance 07/18/2021 Assessment & Plan (07/18/2021 3:39 PM SHEEP CLIPPER): History of statin intolerance -Continue ezetimibe and fenofibrate DM2 (diabetes mellitus, type 2) 07/18/2021 Assessment & Plan (07/19/2021 7:58 AM SHEEP CLIPPER): Follow glucose and rx with insulin Metformin held for now pending cath. Assessment & Plan (07/18/2021 3:41 PM SHEEP CLIPPER): -Hemoglobin A1c 6.1 -Hold home metformin while inpatient -SSI while admitted -Carb consistent diet -Accuchecks BPH (benign prostatic hyperplasia) 07/18/2021 Assessment & Plan (07/18/2021 3:59 PM SHEEP CLIPPER): BPH s/p TURP -Continue home finasteride and tamsulosin HLD (hyperlipidemia) 07/18/2021 Assessment & Plan (10/11/2024 11:06 AM CDT): Recommend statin therapy. Assessment & Plan (09/15/2024 10:52 AM CDT): Stable continue Zetia Assessment & Plan (08/31/2024 1:57 PM CDT): Impression: Chronic stable. Plan: Continue Zetia, fenofibrate Assessment & Plan (07/21/2021 8:10 AM SHEEP CLIPPER): LDL ok while on non-statins due to intolerance. Continue present Rx for now Assessment & Plan (07/20/2021 8:10 AM SHEEP CLIPPER): LDL ok while on non-statins due to intolerance. Continue present Rx for now Assessment & Plan (07/19/2021 7:57 AM SHEEP CLIPPER): LDL ok while on non-statins due to intolerance. Continue present Rx for now Assessment & Plan (07/18/2021 3:52 PM SHEEP CLIPPER): Lipid panel WNL -Continue ezetimibe and fenofibrate [...] 07/18/19 Assessment & Plan (07/18/2021 4:00 PM SHEEP CLIPPER): PVOD s/p bilateral iliac stents Unstable angina 07/18/2021 Overview (07/18/2021): Added automatically from request for surgery [id number] Assessment & Plan (07/21/2021 8:10 AM SHEEP CLIPPER): CP concerning for USA. troponins normal, ruled out for NV. I have recommended coronary angiography and this is scheduled for today. Pt has PAD Continue IV heparin, follow labs and adjust. Continue aspirin, plavix, beta carrie, Patient asymptomatic. Cardiac catheterization scheduled for tomorrow. NPO after midnight. Assessment & Plan (07/20/2021 8:10 AM SHEEP CLIPPER): CP concerning for USA. troponins normal, ruled out for NV. I have recommended coronary angiography and this is scheduled for Wednesday. Pt has PAD and radial approach may be preferred. Continue IV heparin, follow labs and adjust. Continue aspirin, plavix, beta carrie, Patient asymptomatic. Cardiac catheterization scheduled for tomorrow. NPO after midnight. Assessment & Plan (07/19/2021 7:56 AM SHEEP CLIPPER): CP concerning for USA. troponins normal, ruled out for NV. Brief left sided chest pain since admission. [...] (03/06/2021): Added automatically from request for surgery [id number] Presbyopia 02/03/2021 Assessment & Plan (08/12/2023 5:06 PM SHEEP CLIPPER): -Noting increased difficulty with near vision while reading -Recommended trialing higher power reading glasses Assessment & Plan (02/03/2021 2:44 PM CDT): Correctable to 20/25 right eye (OD) and left eye (OS). Update specs as desired. Rosacea 09/18/2020 Metatarsalgia of right foot 07/04/2020 Overview (07/04/2020): Added automatically from request for surgery [id number] Sesamoiditis 07/04/2020 Overview (07/04/2020): Added automatically from request for surgery [id number] Painful orthopaedic hardware 07/04/2020 Overview (07/04/2020): Added automatically from request for surgery [id number] Achilles tendon contracture, right 07/04/2020 Overview (07/04/2020): Added automatically from request for surgery [id number] Pseudarthrosis after fusion or arthrodesis 02/28 Overview (02/28/2019): Added automatically from request for surgery [id number] Diabetes mellitus type 2 without retinopathy 05/2019 Assessment & Plan (02/09/2023 3:33 PM CDT): Continue strict BS control, annual dilated eye exams. Assessment & Plan (06/17/2022 4:09 PM SHEEP CLIPPER): Continue strict BS control, annual dilated eye [...] months Assessment & Plan (08/12/2023 5:05 PM SHEEP CLIPPER): -Follow up exam for AMD; last visit [...] 6months Assessment & Plan (06/17/2022 9:41 AM SHEEP CLIPPER): -No signs of exudation. -given the large [...] months Assessment & Plan (08/13/2021 3:12 PM SHEEP CLIPPER): No signs of exudation. Per AREDS study, [...] follow. Assessment & Plan (06/17/2022 4:09 PM SHEEP CLIPPER): NVS, follow. Assessment & Plan (02/23/2019 10:32 [...] (06/08/2018): Added automatically from request for surgery [id number] Palpitations 04/15/2018 CAD (coronary artery disease) 03/08/2018 Assessment & Plan (09/04/2024 11:21 AM CDT): stable Assessment & Plan (07/18/2021 3:42 PM SHEEP CLIPPER): CAD s/p CABG in 2010 (KAUR-LAD which is known to be an atretic graft; vein graft-marginal; and vein graft-2nd marginal branch; RCA occluded, with collateral revascularization) -Last [facility] in 11/2018 showed patent KAUR graft [...] Diabetes mellitus type II, non insulin dependent ([facility]) 01/15/2018 Assessment & Plan (09/04/2024 11:21 AM CDT): Stable and doing well Assessment & Plan (07/21/2021 9:50 AM SHEEP CLIPPER): Hemoglobin a1c 6.1 - diet controlled for now Metformin on hold for [facility] Continue to monitor. Assessment & Plan (07/20/2021 8:11 AM SHEEP CLIPPER): Blood sugar stable. Follow-up blood sugar. Treat with insulin as appropriate Metformin being held. Assessment & Plan (02/28/2020 3:23 PM CDT): a1c at target, recommend annual eye exam. Feet are without lesions. Assessment & Plan (11/22/2018 4:43 PM CDT): On metformin 1000mg BID at home -LDSSI Assessment & Plan (11/14/2018 1:46 PM CDT): No SETTER OUT Last A1C was 01/2018 but at goal [...] metoprolol Assessment & Plan (07/18/2021 3:53 PM SHEEP CLIPPER): BP currently well controlled -Continue amlodipine, lisinopril [...] 09/15/2016 Assessment & Plan (07/18/2021 4:06 PM SHEEP CLIPPER): -Continue metoprolol XL -Telemetry Assessment & Plan (11/22/2018 5:25 PM CDT): Patient with long history of NSVT, on CPAP at home. Improved symptomatically as of last clinic visit, with acute worsening of symptoms in setting of ischemia. -telemetry -CPAP per protocol Presence of cardiac pacemaker 09/10/2015 Assessment & Plan (02/28/2020 3:22 PM CDT): No dizziness, doing well Sick sinus syndrome ([facility]/HCC) 05/13/2015 Assessment & Plan (09/04/2024 11:21 AM CDT): stable Assessment & Plan (07/21/2021 8:10 AM SHEEP CLIPPER): Pacer function stable Continue present Rx. Continue beta-carrie. Assessment & Plan (07/20/2021 8:10 AM SHEEP CLIPPER): Pacer function stable Continue present Rx. Continue beta-carrie. 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 Maty Weber Assessment & Plan (02/28/2020 3:23 PM CDT): No palpitations, syncope Depressive disorder 03/15/2015 Panic disorder without agoraphobia 03/15/2015 Resolved Problems Problem Noted Date Diagnosed Date Resolved Date Pain in right foot 04/24/2022 4 LINUS (acute kidney injury) 07/18/2021 Assessment & Plan (07/21/2021 8:12 AM SHEEP CLIPPER): Pt with CKDstage 3, CrCl 50 ml/min. Creatinine improved. Cath today Assessment & Plan (07/20/2021 8:11 AM SHEEP CLIPPER): Pt with CKDstage 3, CrCl 50 ml/min. Repeat BMP today. IV hydration Mikal night before cath recommended. Assessment & Plan (07/19/2021 7:59 AM SHEEP CLIPPER): Pt with CKDstage 3, CrCl 50 ml/min. Stable. IV hydration Mikal night before cath recommended. Assessment & Plan (07/18/2021 3:44 PM SHEEP CLIPPER): LINUS (Cr 1.59 on admission) on CKD (baseline Cr 1.0-1.2) -S/p 500 ml LR bolus in ED -Follow BMPs Statin intolerance 02/10/2021 4 Syncope and collapse 12/30/2020 024 Encounter for screening colonoscopy 10/14/2020 06/17/2023 Overview (10/14/2020): Added automatically from request for surgery [id number] Joint pain 02/28/2020 06/17/2023 Assessment & Plan (04/29/2020 10:45 AM SHEEP CLIPPER): Medrol dose pack Tramadol Q6 PRN (use, safety, s/e reviewed) Referral to Pain Management Assessment & Plan (02/28/2020 3:25 PM CDT): xrays noted, check rheum panel (? H/o pos JENNIFER) Confusion 01/04/2019 06/17/2023 Chest pain 01/15/2018 06/17/2023 Assessment & Plan (07/21/2021 9:47 AM SHEEP CLIPPER): CAD s/p CABG (2010), admitted with chest [...] for chest pain -Telemetry monitoring NPO for [facility] Assessment & Plan (01/16/2018 10:39 AM [...] often do you attend chur ch or religion services? 1 to 4 times per year 05/02/2021 Do you belong to any clubs o r organizations such as gnosticist groups, unions, fraternal or athletic groups, or [...] on file Legal Sex Male 11:34 PM SHEEP CLIPPER Gender Identity Not on file Sexual Orientation [...] Chronic Care Management No change(08/10 10:32 AM SHEEP CLIPPER) No Brissa Muse RN Note: Problem: Chronic Pain Goals: 1. Minimize further functional decline 2. Maximize quality of life 3. Control pain Strategies: - Activity/exercise program recommendation - Conservative stepwise pain medicine strategy with multi-disciplinary approach - Recommend healthy lifestyle strategies and compensatory methods as needed Medical Devices Implanted Type Area Bsa/Aml Compliance Officer Device Identifier Shelf Expiration Date Model / Serial / Lot Terumo Medical Lewis Angio-Seal Vip 6fr Closere Device [id number] - [id number] - [id number] Implanted:Qty: 1 on 11/25/2022 by Eliecer Mixon MD at [facility] Collagen [employer]o [employer] Lewis 06/13/2023 [id number] / [id number] / [id number] Terumo Medical Lewis Angio-Seal Vip 6fr Closere Device [id number] - [id number] - [id number] Implanted:Qty: 1 on 10/16/2024 by Clifford Sandy MD at [facility] Collagen Left: Common Femoral Artery Ter[employer]o [employer] Lewis 05/01/2025 [id number] / [id number] / [id number] Lead (Ra)-05/08/2015 Implanted:05/08/2015 by Maty Weber MD (Quantity not on file) Lead Heart Biotronik 350 974 SETROX S 53 / [id number] / Lead (Rv)-05/08/2015 Implanted:05/08/2015 by Maty Weber MD (Quantity not on file) Lead Heart Biotronik 350 975 SETROX S 60 / [id number] / Pacemaker-05/08/2015 Implanted:05/08/2015 by Maty Weber MD (Quantity not on file) Pacemaker Left: Chest Biotronik [id number] KYLER AGUILA / [id number] / Synthes 201.814 2mm 3.5mm 14mm Self Tap Cruciform Cortex Screw Bone Stainless - S0 - [id number] Implanted:Qty: 1 on 08/06/2020 by Zoey Sexton MD at [facility] Screw Synthes I 201.814 / 0 / Medtronic Card Vasc Surgery 4.0 X 26mm Swoope [place] Rx Coronary Stent [id number] - [id number] - [id number] Implanted:Qty: 1 on 11/25/2022 by Clifford Sandy MD at [facility] Stent Medtronic Card Vasc Surgery 06/26/2025 [id number] / [id number] / [id number] Orthohelix Wtl-[id number] Maxtorque 4mm 32.5mm Cannulated Self Drill Foot Ankle Long Thread - [id number] Implanted:Qty: 1 on 06/28/[address] [facility] Right: Foot Orthohelix MSD-010- [id number] / / Orthohelix Personnel Counselor-002-Pmx Ortholink 3 Hole [place] Foot Ankle Standard Plate Bone Nonsterile Latex Free - [id number] Implanted:Qty: 1 on 06/28/[address] [facility] Right: Foot Orthohelix LARRIMAN-002- PMX / / Orthohelix [id number] Maxlock Extreme 4mm 16mm Nonlock Foot Ankle Screw Bone Nonsterile - [id number] Implanted:Qty: 1 on 06/28/[address] [facility] Right: Foot Orthohelix LARRIMAN-011- 4016 / / Orthohelix [id number] Maxlock Extreme 4mm 18mm Nonlock Foot Ankle Screw Bone Nonsterile Latex Free - [id number] Implanted:Qty: 1 on 06/28/[address] [facility] Right: Foot Orthohelix LARRIMAN-011- 40-18 / / Orthohelix [id number] Maxlock Extreme 4mm 14mm Nonlock Foot Ankle Screw Bone Nonsterile Latex Free - [id number] Implanted:Qty: 1 on 06/28/[address] [facility] Right: Foot Orthohelix LARRIMAN-011- 4014 / / Daig Lewis[employer] [id number] Angio-Seal Evolution 6fr .035in Guidewire Bypass Tube Suture - [id number] Implanted:Qty: 1 on 11/22/2018 by Sarah Vasquez MD at [facility] Daig Lewis[employer] 08/12/2019 [id number] / / [id number] Medtronic Sofamor Danek [id number] Infuse 14mm 23mm Absorbable Sponge Sterile Water Syringe Needle - [id number] Implanted:Qty: 1 on 06/02/2019 by Zoey Sexton MD at [facility] Right: Foot Medtronic Inc 01/11/2021 [id number] / / [id number] Lightera Inc [id number] Plate Bone Medline Unite 0 D Medium Metatarsophalangeal Right Fusion Nonsterile - [id number] Implanted:Qty: 1 on 06/02/2019 by Zoey Sexton MD at [facility] Right: Foot Lightera Inc [id number] / / Lightera Inc [id number] Pin Fixation Medline Unite L10mm Od1.1mm - [id number] Implanted:Qty: 1 on 06/02/2019 by Zoey Sexton MD at [facility] Right: Foot Lightera Inc [id number] / / Medline Industries Inc [id number] Screw Bone Medline Unite L34mm Od4.5mm Head Nonsterile - [id number] Implanted:Qty: 1 on 06/02/2019 by Zoey Sexton MD at [facility] Right: Foot Medline [employer] Inc [id number] / / Medline Industries Inc [id number] Screw Bone Medline Unite L16mm Od3.5mm Foot Ankle Nonlock - [id number] Implanted:Qty: 1 on 06/02/2019 by Zoey Sexton MD at [facility] Right: Foot [employer] Inc [id number] / / Medline [employer] Inc [id number] Screw Bone Medline Unite L18mm Od3.5mm Foot Ankle Nonlock - [id number] Implanted:Qty: 1 on 06/02/2019 by Zoey Sexton MD at [facility] Right: Foot Medline [employer] Inc [id number] / / Lightera Inc [id number] Screw Bone Medline Unite L20mm Od3.5mm Foot Ankle Nonlock - [id number] Implanted:Qty: 2 on 06/02/2019 by Zoey Sexton MD at [facility] Right: Foot [employer] [id number] / / [place] [employer] Triathlon Cruciate Retain Bead Knee Left 5 Component Femoral Pa 5517-F-501 - [id number] Implanted:Qty: 1 on 04/24/2024 by Zbigniew Noel MD at [facility] [employer] [id number] 02/27/2029 5517-F-5 01 / / [id number] Triathlon Knee 6 Baseplate Tibial Tritanium 5536-B-600 - [id number] Implanted:Qty: 1 on 04/24/2024 by Zbigniew Noel MD at [facility] [id number] 11/08/2028 5536-B-6 00 / / [id number] [employer] Insert Tibial Triathlon 6 H11mm Knee Bearing Condylar Stabilize Sterile 8555-G-077-E - [id number] Implanted:Qty: 1 on 04/24/2024 by Zbigniew Noel MD at [facility] [employer] [id number] 12/19/2028 5531-G-6 11-E / / [id number] Explanted Type Area Bsa/Aml Compliance Officer Device Identifier Shelf Expiration Date Model / Serial / Lot [employer] [id number] Anne .45in 9in 1 [employer] Fixation - S0 - [id number] Explanted:Qty: 1 on 08/06/2020 by Zoey Sexton MD at [facility] Wire [employer] [id number] S / 0 / Description:Provisional fixa tion [employer] [id number] Anne .062in 9in 1 [employer] Fixation - [id number] Explanted:Qty: 1 on 06/28/[address] [facility] Right: Foot [employer] [id number] / / Description:Provisional fixa tion [employer] [id number] Anne .062in 9in 1 [employer] Wire Fixation - [id number] Explanted:Qty: 1 on 06/28/[address] [facility] Right: Foot [employer] [id number] / / Description:Provisional fixa tion [employer] 2265-6954 Anne .062in 9in 1 [employer] Wire Fixation - [id number] Explanted:Qty: 1 on 06/28/[address] [facility] Right: Foot [employer] [id number] / / Description:Provisional fixa tion Screw Explanted:Qty: 5 on 08/06/2020 by Zoey Sexton MD at [facility] Other / 0 / Plate Explanted:Qty: 1 on 08/06/2020 by Drew Espinosa MD at [facility] Other / 0 / Procedures Procedure [...] 2:35 PM CDT Coronary artery disease involving blackfeet heart without angina pectoris, unspecified vessel or lesion type CORONARY FLOW VELOCITY (CFR) / INSTATANEOUS FLOW VELOCITY (IFR), 1ST VESSEL Routine 10/16/2024 2:35 PM CDT Coronary artery disease involving blackfeet heart without angina pectoris, unspecified vessel or lesion type RIGHT CORONARY ANGIOGRAPHY Routine 10/16/2024 2:35 PM CDT Coronary artery disease involving blackfeet heart without angina pectoris, unspecified vessel or [...] Routine) 10/04/2024 2:41 PM CDT Atherosclerosis of blackfeet artery of both lower extremities with intermittent claudication PRO B-TYPE NATRIURETIC PEPTIDE Routine 10/03/2024 11:50 AM CDT Coronary artery disease involving blackfeet coronary artery of blackfeet heart without angina pectoris BASIC METABOLIC PANEL Routine 10/03/2024 11:50 AM CDT Coronary artery disease involving blackfeet coronary artery of blackfeet heart without angina pectoris CBC WITH AUTO DIFFERENTIAL Routine 10/03/2024 11:50 AM CDT Coronary artery disease involving blackfeet coronary artery of blackfeet heart without angina pectoris TRANSTHORACIC ECHO (TTE) COMPLETE W DOPPLER/CF W CONTRAST Routine 10/03/2024 10:29 AM CDT Cardiomyopathy, ischemic VL US ARTERIAL DUPLEX LOWER EXTREMITY BILATERAL Schedule Routine, Read Routine (OP Routine) 09/05/2024 10:30 AM CDT Atherosclerosis of blackfeet artery of both lower extremities with intermittent claudication US SANTIAGO Schedule Routine, Read Routine (OP Routine) 09/05/2024 10:30 AM CDT Atherosclerosis of blackfeet artery of both lower extremities with intermittent claudication US DUPLEX SCAN AORTA, IVC ILIAC COMPLETE Schedule Routine, Read Routine (OP Routine) 09/05/2024 10:30 AM CDT Atherosclerosis of blackfeet artery of both lower extremities with intermittent claudication Other specified symptoms and signs involving the circulatory and respiratory systems POCT HEMOGLOBIN A1C Routine 09/04/2024 10:38 AM CDT Diabetes mellitus type II, non insulin dependent (HCC) PAIN MGMT IMAGING SHOULDER, HIP, KNEE JOINT/BURSA INJ BILATERAL Schedule Routine, Read Routine (OP Routine) 08/10/2024 11:30 AM SHEEP CLIPPER Greater trochanteric bursitis of both hips CTA ABDOMINAL AORTA AND BILATERAL ILIOFEMORAL RUNOFF Schedule Routine, Read Routine (OP Routine) 09/27/2023 11:27 AM CDT Claudication in peripheral vascular disease POCT LIPID PANEL Routine 09/21/2023 9:27 AM CDT Mixed hyperlipidemia PSA SCREEN Routine 06/17/2023 10:13 AM SHEEP CLIPPER Prostate cancer screening COLONOSCOPY 01/01/2021 12:16 PM [...] BLOOD ORDERABLES F inal Result [facility] [address] [address] Department [place] [address] * Basic metabolic panel (10/18/2024 10:10 AM CDT) Sodium 137 135 - 145 mmol/L Potassium, pl 4.3 3.3 - 4.9 mmol/L CERNER Chloride 101 97 - 110 mmol/L [facility] CH CO2 22 22 - 32 mmol/L [facility] CH Anion gap 14 2 - 15 mmol/L [facility] CH BUN 18 6 - 25 mg/dL [facility] CH Creatinine 1.14 0.80 - 1.30 mg/dL [facility] Glucose 130 70 - 199 mg/dL [facility] Comment: Interpretive Data Fasting glucose >/= [...] 2022. Calcium 10.0 8.5 - 10.3 mg/dL [facility] Blood 10/18/2024 10:1 0 AM CDT 10/18/2024 3:54 PM CDT Rigo Carroll MD LAB BLOOD ORDERABLES F inal Result [facility] [address] Department [place] [address] * POCT glucose (10/16/2024 3:20 PM CDT) [facility] Signature Glucose, POC 95 70 - 199 mg/dL Blood 10/16/2024 3:20 PM CDT 10/16/2024 3:20 PM CDT Clifford Sandy MD LAB POCT ORDERABLES - DEVICE Final Result [facility] Department [place] [address] * RIGHT CORONARY ANGIOGRAPHY, CORONARY FLOW VELOCITY [...] and OM2 Known atretic KAUR to LAD PROFESSOR OF PSYCHIATRY of the mid RCA THERAPEUTIC RECOMMENDATIONS: Left [...] result were not included. Cardiovascular Procedure Center [facility] [address] [place] [address] CORONARY AND GRAFT REPORT Patient: Vicky Youssef : 1955 MR number: [id number] Date of Service: 10/16/2024 Senior Linux Systems Engineer: Clifford Sandy MD Fellow: Salvador Arita MD and Madalyn Reynaga MD Referring physician: Rigo Carroll MD INDICATION: worsening LV function, dyspnea PATIENT CLINICAL PROFILE: Vicky Youssef is a 69 y.o. male with a history of CABG s/p KAUR-LAD (atretic), SVG-Ramus/high OM, SVG-OM2, PCI to LM-LAD with a 4.0 mm [place]ope [place] SHEMAR, mild LV dysfunction, who is presenting with worsening LV dysfunction and some dyspnea on exertion. PROCEDURE: The risks, benefits and alternatives of the procedures and moderate sedation were explained to the patient and informed consent was obtained. The patient was brought to the animal laboratory helper and placed on the table. Bilateral groins were prepped and draped in the usual sterile fashion. Ultrasound guidance was used to obtain access. I provided direct [id number] moderate conscious sedation which administered by independent [...] The RCA has slow flow and a PROFESSOR OF PSYCHIATRY in the mid segment which is unchanged [...] 231(H) 123 - 168 sec POC Performer [id number] [facility] POC Device Number [id number] [facility] Blood 10/16/2024 2:30 PM CDT 10/16/2024 2:30 PM CDT Clifford Sandy MD LAB POCT ORDERABLES - DEVICE Final Result [facility] Department [place] [address] * (ABNORMAL) POCT Activated clotting time, low range (10/16/2024 2:11 PM CDT) ACT 269(H) 123 - 168 sec POC Performer [id number] [facility] POC Device Number [id number] [facility] Blood 10/16/2024 2:11 PM CDT 10/16/2024 2:11 PM CDT Clifford Sandy MD LAB POCT ORDERABLES - DEVICE Final Result [facility] Department [place] [address] * CBC without differential (10/16/2024 12:35 PM CDT) WBC See Comment 3.80 - 9.90 Comment:Credited, specimen c lotted. Hgb See Comment 13.0 - 17.5 [facility] Comment:Credited, specimen c lotted. Hct See Comment 38.9 - 50.3 [facility] Comment:Credited, specimen c lotted. Plt See Comment 150 - 400 [facility] Comment:Credited, specimen c lotted. MPV See Comment 9.1 - 12.3 [facility] Comment:Credited, specimen c lotted. RBC See Comment 4.30 - 5.80 [facility] Comment:Credited, specimen c lotted. MCV See Comment 81.3 - 96.4 [facility] Comment:Credited, specimen c lotted. MCH See Comment 27.1 - 33.3 [facility] Comment:Credited, specimen c lotted. MCHC See Comment 32.3 - 35.7 [facility] Comment:Credited, specimen c lotted. RDW CV See Comment 11.1 - 14.9 [facility] Comment:Credited, specimen c lotted. RDW SD See Comment 35.7 - 48.1 [facility] Comment:Credited, specimen c lotted. NRBC abs See Comment 0.00 - 0.01 [facility] Comment:Credited, specimen c lotted. Blood 10/16/2024 12:3 5 PM CDT 10/16/2024 2:05 PM CDT Narrative [facility] - 10/16/2024 2:33 PM CDT To be drawn after hydration bolus complete Clifford Sandy MD LAB BLOOD ORDERABLES Final Result Performing Organization Address City/[facility] Co de Phone Number [facility] [place] [address] * POCT glucose (10/16/2024 9:19 AM CDT) [facility] Glucose, POC 118 70 - 199 mg/dL Blood 10/16/2024 9:19 AM CDT 10/16/2024 9:19 AM CDT Clifford Sandy MD LAB POCT ORDERABLES - DEVICE Final Result Performing Organization Address [facility] de Phone Number [facility] [place] [address] * ECG 12 lead (10/16/2024 8:32 AM CDT) [facility] Ventricular Rate EKG/Min 70 BPM [facility] Atrial Rate 70 BPM [facility] AL-Interval (MSEC) 304 ms [facility] QRS-Interval (MSEC) 132 ms [facility] QT-Interval (MSEC) 374 ms [facility] QTc 403 ms [facility] P [place] 2 degrees [facility] R [place] 1 degrees [facility] T [place] 252 degrees [facility] Diagnosis Atrial-paced rhythm with prolonged AV conduction Left ventricular hypertrophy with QRS widening and repolarization abnormality ( Sokolow-Pereira , Rico product ) Cannot rule out Septal infarct , age undetermined Abnormal ECG When compared with ECG of 25-NOV-2022 12:06, no significant change Confirmed by ERNESTINE TAVERAS M.D ([id number]) on 10/17/2024 3:04:55 PM [facility] 10/16/2024 8:32 AM CDT 10/17/2024 3:04 PM CDT Clifford Sandy MD ECG ORDERABLES Lilia rosales Result [facility] * DEVICE CHECK - REMOTE (10/08/2024 3:10 AM CDT) Anatomical Region Laterality Modality Other 10/08/2024 3:10 AM CDT Narrative 10/11/2024 11:10 AM CDT Interpretation Summary: Battery and Leads (BL) Normal parameters noted on battery and lead(s) --- 35% remaining longevity (implanted 2014). Lead impedance, sensing, and threshold trends stable and appropriate. Presenting Rhythm (AL) Atrial Pacing-Ventricular Pacing (AP-CO OP) --- AP/CO OP 70s. Arrhythmic events (AE) No new arrhythmic [...] threshold trends stableand appropriate. Presenting Rhythm (AL) Atrial Pacing-Ventricular Pacing (AP-CO OP) --- AP/CO OP 70s. Arrhythmic events (AE) No new arrhythmic [...] Study Date: 10/04/2024 1:37:00 PM Gender: M Sheet Manager: Leandra Frazier RN/RVT Ref Provider: IVET MONTANA Quality: Adequate Order Provider: IVET MONTANA PROCEDURES: Arterial Report: Bilateral lower extremity arterial Doppler exam at rest and with exercise. INDICATIONS: I70.213 Atherosclerosis of blackfeet arteries of extremities with intermittent claudication, bilateral legs. HISTORY: Claudication lower extremities L>R. HTN/HLD/DM/CAD/PREV SMOKER. COMPARISONS: The previous exam was completed on 09/05/2024. Compared to prior RT PT/DP .89/.53 LT PT/DP .92/.74. MEASUREMENTS: Right Value Left Value Rt Brachial Pressure 158 mmHg Lt Brachial Pressure 151 mmHg Rt FIRM ADMINISTRATOR Pressure 169 mmHg Lt FIRM ADMINISTRATOR Pressure 163 mmHg Rt DPA Pressure 164 [...] Study Date: 10/04/2024 1:37:00 PM Gender: M Sheet Manager: Leandra Frazier RN/RVT Ref Provider: IVET MONTANA Quality: Adequate Order Provider: IVET MONTANA PROCEDURES: Arterial Report: Bilateral lower extremity arterial Doppler exam at rest and withexercise. INDICATIONS: I70.213 Atherosclerosis of blackfeet arteries of extremities withintermittent claudication, bilateral legs. HISTORY: Claudication lower extremities L>R. HTN/HLD/DM/CAD/PREV SMOKER. COMPARISONS: The previous exam was completed on 09/05/2024. Compared to prior RT PT/DP .89/.53 LT PT/DP .92/.74. MEASUREMENTS: Right Value Left Value Rt Brachial Pressure 158 mmHg Lt Brachial Pressure 151 mmHg Rt FIRM ADMINISTRATOR Pressure 169 mmHg Lt FIRM ADMINISTRATOR Pressure 163 mmHg Rt DPA Pressure 164 [...] BLOOD ORDERABLES F inal Result [facility] Department [place] [address] * CBC with auto differential (10/03/2024 11:50 [...] [facility] * Basic metabolic panel (10/03/2024 11:50 AM CDT) [facility] Glucose 97 64 - 99 mg/dL [...] F inal Result [facility] * TRANSTHORACIC ECHO (TTE) COMPLETE W DOPPLER/CF W CONTRAST (10/03/2024 10:29 AM CDT) Anatomical Region Laterality Modality Ultrasound 10/03/2024 9:38 AM CDT Narrative 10/03/2024 11:12 AM CDT [facility] Cardiac [place] [address] Transthoracic Echocardiographic Report Patient Name: VICKY YOUSSEF D : 1955 (69y 6m) Gender: M Study Date: 10/03/2024 09:38:56 AM Ht(Inch): 71 Wt(Lb): 210.98 BSA: 2.19 Sheet Manager: Soco Marcano RDCS Location: [facility] Order Provider: RIGO CARROLL Heart Rate: [...] LA Length 4C 5.23 cm AI Decel Edmonson 2.86 m/s2 LA Length 2C 4.36 cm [...] Procedure Note Rigo Carroll MD - 10/03/2024 [facility] Cardiac [place] [address] Transthoracic Echocardiographic Report Patient Name: VICKY YOUSSEF D : 1955 (69y 6m) Gender: M Study Date: 10/03/2024 09:38:56 AM Ht(Inch): 71 Wt(Lb): 210.98 BSA: 2.19 Sheet Manager: Soco Marcano RDCS Location: [facility] Order Provider:RIGO CARROLL Heart Rate: 70 [...] [ -25.0 - -18.0 ] AI Decel Yovo7519.25 sec LA Length 4C 5.23 cm AI Decel Slope2.86 m/s2 LA Length 2C 4.36 cm AI ZAB117.99 msec LA Volume BP 50.69 ml Lat E` Vel4.0 cm/sec [ 10.0 - 25.0 ] LA Volume Index 23.15 ml/m2 [ 16.00 - 34.00 ] RV S`7.62 cm/sec RV Base Dimen 2D 3.9 cm [ 2.5 - 4.2 ] PV Peak Vel0.8 m/s [ 0.4 - 0.8 ] TAPSE 0.94 cm [ 1.71 - 5.00 ] PV Peak PG2.56 mmHg RA Tfqegc80.65 ml RA Volume Index17.19 ml/m2 IVC Diam1.47 [...] CDT [facility] [address] [address] Lower Extremity Arterial Duplex Report Patient Name: KRISTINAVICKY D : 1955 (69y 5m) Gender: M Study Date: 09/05/2024 09:33:41 AM Ht(Inch): Wt(Lb): BSA: Sheet Manager: CORI Location: [facility] Order Provider: IVET MONTANA Quality: Adequate Ref Provider: IVET MONTANA PROCEDURES: Arterial Report: A non-invasive vascular imaging study of the bilateral lower extremity arteries was performed using B-mode ultrasound, color flow, and spectral Doppler. INDICATIONS: R>L claudication, remote hx BCIA stents. HISTORY: HTN. HLD. DM. CAD-NV S/P stent/CABG. Afib. Pacemaker. Former smoker. COMPARISONS: Prior CTA on 09/27/23. MEASUREMENTS: Right Value Left Value Rt AIR PLANT ENGINEER Dst PSV 77.00 cm/sec Lt AIR PLANT ENGINEER Dst PSV 87.00 cm/sec Rt Profunda Prx [...] MD - 09/06/2024 [facility] [place] [address] Lower Extremity Arterial Duplex Report Patient Name: VICKY YOUSSEF D : 1955 (69y 5m) Gender: M Study Date: 09/05/2024 09:33:41 AM Ht(Inch): Wt(Lb): BSA: Sheet Manager: CORI Location: [facility] Order Provider: IVET MONTANA Quality: Adequate Ref Provider: IVET MONTANA PROCEDURES: Arterial Report: A non-invasive vascular imaging study of the bilaterallower extremity arteries was performed using B-mode ultrasound, color flow, and spectralDoppler. INDICATIONS: R>L claudication, remote hx BCIA stents. HISTORY: HTN. HLD. DM. CAD-NV S/P stent/CABG. Afib. Pacemaker. Former smoker. COMPARISONS: Prior CTA on 09/27/23. MEASUREMENTS: Right Value Left Value Rt AIR PLANT ENGINEER Dst PSV 77.00 cm/sec Lt AIR PLANT ENGINEER Dst PSV 87.00 cm/sec Rt Profunda Prx [...] 2:37 PM CDT [facility] [address] [place] [address]. [place] [address] Lower Extremity Arterial Doppler Report Patient Name: VICKY YOUSSEF D : 1955 Study Date: 09/05/2024 8:50:00 AM Gender: M Sheet Manager: Maureen Vásquez RVT Location: [facility] Ref Provider: IVET MONTANA Quality: Adequate Order Provider: IVET MONTANA PROCEDURES: Arterial Report: Ankle - Brachial Index Doppler exam. INDICATIONS: Remote hx BCIA stents; R>L claudication. HISTORY: HTN. HLD. DM. CAD-NV S/P stent/CABG. Afib. Pacemaker. Former smoker. COMPARISONS: The previous exam was completed on 11/19/23. Compared to prior there is disease progression at bilateral dorsalis pedis arteries. MEASUREMENTS: Right Value Left Value Rt Brachial Pressure 159 mmHg Lt Brachial Pressure 146 mmHg Rt FIRM ADMINISTRATOR Pressure 142 mmHg Lt FIRM ADMINISTRATOR Pressure 147 mmHg Rt DPA Pressure 84 [...] MD - 09/06/2024 [facility] [address] [place] [address] Lower Extremity Arterial Doppler Report Patient Name: VICKY YOUSSEFGriselda : 1955 Study Date: 09/05/2024 8:50:00 AM Gender: M Sheet Manager: Maureen Vásquez RVT Location: [facility] Ref Provider: IVET MONTANA Quality: Adequate Order Provider: IVET MONTANA PROCEDURES: Arterial Report: Ankle - Brachial Index Doppler exam. INDICATIONS: Remote hx BCIA stents; R>L claudication. HISTORY: HTN. HLD. DM. CAD-NV S/P stent/CABG. Afib. Pacemaker. Former smoker. COMPARISONS: The previous exam was completed on 11/19/23. Compared to prior there is disease progression at bilateral dorsalis pedisarteries. MEASUREMENTS: Right Value Left Value Rt Brachial Pressure 159 mmHg Lt Brachial Pressure 146 mmHg Rt FIRM ADMINISTRATOR Pressure 142 mmHg Lt FIRM ADMINISTRATOR Pressure 147 mmHg Rt DPA Pressure 84 [...] 2:37 PM CDT [facility] [address] [place] [address] Abdominal Aortic Duplex Ultrasound Report Patient Name: VICKY YOUSSEF D : 1955 Study Date: 09/05/2024 8:52:47 AM Gender: M Sheet Manager: CORI Location: [facility] Ref Provider: IVET MONTANA Quality: [...] MD - 09/06/2024 [facility] [address] [place] [address] Abdominal Aortic Duplex Ultrasound Report Patient Name: VICKY YOUSSEF D : 1955 Study Date: 09/05/2024 8:52:47 AM Gender: M Sheet Manager: Location: [facility] Provider: IVET MONTANA Quality: Adequate Order Provider: [...] Ivet Montana MD 09/06/2024 1:47:06 PM CDT vIet Montana MD IMG US PROCEDURES Final Result * (ABNORMAL) POCT hemoglobin A1c (09/04/2024 10:38 AM CDT) Hemoglobin A1C, POC 6.4 4.0 - 5.6 % Blood 09/04/2024 10:3 8 AM CDT Perry Romero MD POINT OF CARE TEST ORDERABLES Final Result * Imaging Shoulder, Hip, Knee Joint/Bursa INJ INJ Bilateral () (08/10/2024 11:30 AM SHEEP CLIPPER) Narrative [facility] - 08/10/2024 11:30 AM SHEEP CLIPPER The images from this study are not [...] lipid panel (09/21/2023 9:27 AM CDT) Pathologist [facility] Cholesterol, POC <100 mg/dL Triglycerides, POC 214 mg/dL Capillary blood 09/21/2023 9 :27 AM CDT Perry Romero MD POINT OF CARE TEST ORDERABLES Final Result * PSA screen (06/17/2023 10:13 AM SHEEP CLIPPER) PSA 0.4 0.0 - 4.0 ng/mL [facility] - 01 Comment: Shahbaz ECLIA methodology. According to the [employer] [employer], Serum PSA should decrease and [...] malignant disease. Blood 06/17/2023 10:1 3 AM SHEEP CLIPPER 06/17/2023 Narrative [facility] - 06/18/2023 6:11 AM SHEEP CLIPPER Performed at: - Lab[address] [id number] Practice Architect: Edgar Menard PhD, Phone: [phone] us Mamie Rose ENTRY LEVEL FINANCIAL ANALYST LAB BLOOD ORDERABLES Fin al Result [facility] - * COLONOSCOPY (01/01/2021 12:16 PM CDT) Anatomical Region Laterality Modality Other Narrative Procedure Note Emily Zeng MD - 01/01/2021 12:16 PM CDT [facility] Patient Name: Vicky Youssef Procedure Date: 01/01/2021 12:16 PM Date of : 1955 Admit Type: Outpatient Age: 65 Gender: Male Attending MD: Huy Reed Room: [facility] ENDOSCOPY ROOM 3 Note Status: [...] bowel preparation was evaluated using the BBPS ([place] Bowel Preparation Scale) with scores of:Right Colon [...] On: 01/01/2021 12:16 PM Recognized by the [place] [employer] for promoting quality in endoscopy Emily Zeng MD ENDOSCOPY PROCEDUR ES Final Result from Last 3 Months or Most Recently Relevant to Health Maintenance Insurance MEDICARE [employer] MEDICARE SUPPLEMENT MEDICARE [facility] MEDICARE MEDICARE [facility] MEDICARE SUPPLEMENT MEDICARE [employer] MEDICARE SUPPLEMENT MEDICARE [facility] BLUE CROSS MEDICARE SUPPLEMENT Advance Directives For more information, please contact: [phone] * Full Code (Latest Code Status on [...] 4:34 PM 05/02/2021 4:45 PM Care Teams Dip Painter Relationship Specialty Start Date End Date Perry Romero MD PCP - General Internal Medicine 02/23/20 Rigo Carroll MD Rn Mds Cardiology 05/23/19 Love Jones, PT Physical Therapist Physical Therapy 09/28/22 Arthur Bateman MD [address] [address] Referring Physician Anesthesiology 09/28/22 Karl Cha MD [address] [place] [address] Referring Physician Orthopedic Surgery 11/24/23
[2024-11-02 10:23] LABS: CRP 3.2 mg/dL (<1.0)
[2024-11-02 10:45] LABS: Erythrocyte Sedimentation Rate 27 mm/hr (0-20)
[2024-11-03 15:55] LABS: Anion Gap 9 mmol/L (4-12); Blood Urea Nitrogen 22 mg/dL (9-20); Calcium 9.7 mg/dL (8.4-10.2); Carbon Dioxide 25 mmol/L (22-30); Chloride 103 mmol/L (98-107); Estimated Glomerular Filt Rate > 60; Glucose 115 mg/dL (65-110); Sodium 137 mmol/L (137-145)
== END 2024-11-02 09:12 | disposition home or self-care (01) ==
PROVIDERS: Internal Medicine Cardiovascular Disease; PCP Internal Medicine; Visit Provider Orthopaedic Surgery
DX: M25.561 Pain in right knee (principal); M25.562 Pain in left knee; Z96.652 Presence of left artificial knee joint
CPT/HCPCS: 36415; 80048; 85652; 86140

== ENCOUNTER 2024-11-07 15:55 | Outpatient (NON) | payer MEDICARE, SELFPAY ==
--- OUTSIDE RECORDS SUMMARY | 2024-11-07 16:00 | XMS_ITS | Encounter Summary ---
Author Organization [facility] Address [address] [place] [address] Phone Care Team Providers Care Engineering Manager Name Role Phone Leonidas Carroll MD Unavailable [phone] Perry Romero MD Primary Care Provider [phone] Love Jones PT Unavailable Unavailab Arthur Law MD Unavailable Karl Cha MD Unavailable [phone] Encounter Details Date Type Department Care Team (Late st Contact Info) Description 10/03/2024 Results Follow-Up [facility] Cardiology [address] [facility] 8th [place] [address] [place] [address] Leonidas Carroll MD [address] [facility] [address] [place], [place] [id number] CBC with auto differential, Basic metabolic panel [...] often do you attend chur ch or sikh services? 1 to 4 times per year 05/02/2021 Do you belong to any clubs o r organizations such as spiritism groups, unions, fraternal or athletic groups, or [...] on file Legal Sex Male 11:34 PM BEAD STRINGER Gender Identity Not on file Sexual Orientation [...] Chronic Care Management No change(08/10 10:32 AM BEAD STRINGER) No Brissa Muse RN Note: Problem: Chronic Pain Goals: 1. Minimize further functional decline 2. Maximize quality of life 3. Control pain Strategies: - Activity/exercise program recommendation - Conservative stepwise pain medicine strategy with multi-disciplinary approach - Recommend healthy lifestyle strategies and compensatory methods as needed documented as of this encounter Visit Diagnoses Not on filedocumented in this encounter Care Teams Engineering Manager Relationship Specialty Start Date End Date Perry Romero MD PCP - General Internal Medicine 02/23/20 Leonidas Carroll MD Radio Communications Mechanician Cardiology 05/23/19 Love Jones, PT Physical Therapist Physical Therapy 09/28/22 Arthur Bateman MD [address] [address] Referring Physician Anesthesiology 09/28/22 Karl Cha MD [address] [place] [address] Referring Physician Orthopedic Surgery 11/24/23 documented as of this encounter
--- OUTSIDE RECORDS SUMMARY | 2024-11-07 16:00 | XMS_ITS | Encounter Summary ---
Author Organization [facility] Address [address] [place] [address] Phone Care Team Providers Care Mangle Roller Name Role Phone Leonidas Carroll MD Unavailable [phone] Perry Romero MD Primary Care Provider [phone] Love Jones PT Unavailable Unavailab Arthur Law MD Unavailable Karl Cha MD Unavailable [phone] Encounter Details Date Type Department Care Team (Late st Contact Info) Description 10/03/2024 Results Follow-Up [facility] Cardiology [address] [facility] Advanced Medicine 8th [place] [address] [place] [address] Leonidas Carroll MD [address] [facility] [address] [place] [address] Pro B-type natriuretic peptide Social [...] week 05/02/2021 How often do you attend [facility] or zoroastrianism services? 1 to 4 times per year 05/02/2021 Do you belong to any clubs o r organizations such as tenriism groups, unions, fraternal or athletic groups, or [...] on file Legal Sex Male 11:34 PM CONNIE SCRATCHER Gender Identity Not on file Sexual Orientation Not on file documented as of this encounter Miscellaneous Notes * Telephone Encounter - April Felix - 10/04/2024 2:37 PM CDT [place] Patient returning missed call. He can be reached at [phone]. * Result Encounter Note - Leonidas Carroll MD - 10/03/2024 4:31 PM CDT Tell patient normal results. documented in this encounter Plan of Treatment Not on file documented as of this encounter Goals Goal Patient Goal Type Associated Problems Recent Progress Patient-Stated? Author CCM Chronic Pain Care Plan Chronic Care Management No change(08/10 10:32 AM CONNIE SCRATCHER) No Brissa Muse RN Note: Problem: Chronic Pain Goals: 1. Minimize further functional decline 2. Maximize quality of life 3. Control pain Strategies: - Activity/exercise program recommendation - Conservative stepwise pain medicine strategy with multi-disciplinary approach - Recommend healthy lifestyle strategies and compensatory methods as needed documented as of this encounter Visit Diagnoses Not on filedocumented in this encounter Care Teams Mangle Roller Relationship Specialty Start Date End Date Perry Romero MD PCP - General Internal Medicine 02/23/20 Leonidas Carroll MD Hr Generalist Cardiology 05/23/19 Love Jones PT Physical Therapist Physical Therapy 09/28/22 Arthur Bateman MD [address] [address] Referring Physician Anesthesiology 09/28/22 Karl Cha MD [address] [place] [address] Referring Physician Orthopedic Surgery 11/24/23 documented as of this encounter
--- OUTSIDE RECORDS SUMMARY | 2024-11-07 16:00 | XMS_ITS | Encounter Summary ---
Author Organization [facility] Address [address] [place] [address] Phone Care Team Providers Care Photocopy Operator Name Role Phone Leonidas Carroll MD Unavailable [phone] Perry Romero MD Primary Care Provider Love Jones PT Unavailable Unavailab Arthur Law MD Unavailable Karl Cha MD Unavailable [phone] Encounter Details Date Type Department Care Team (Latest Contact Info) Description 10/16/2024 Results Follow-Up [facility] Cardiology [address] [facility] [address] Medicine 8th [place] [address] [place] [address] Leonidas Carroll MD [address] [facility] [address] [place] [address] Cardiac Catheterization Social History Tobacco [...] week 05/02/2021 How often do you attend [facility] or buddhism services? 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 Gender Identity Not on file Sexual Orientation [...] Chronic Care Management No change(08/10 10:32 AM EDUCATION TRAINER) No Brissa Muse RN Note: Problem: Chronic [...] LAB BLOOD ORDERABLES F inal Result [facility] [address] Department [place] [address] documented in this encounter Visit Diagnoses Diagnosis High risk medications (not anticoagulants) long-term use- Primary Encounter for long-term (current) use of other medications documented in this encounter Care Teams Photocopy Operator Relationship Specialty Start Date End Date Perry Romero MD PCP - General Internal Medicine 02/23/20 Leonidas Carroll MD Trailhead Maintenance Worker Cardiology 05/23/19 Love Jones, PT Physical Therapist Physical Therapy 09/28/22 Arthur Bateman MD [address] [address] Referring Physician Anesthesiology 09/28/22 Karl Cha MD [address] [place] [address] Referring Physician Orthopedic Surgery 11/24/23 documented as of this encounter
--- OUTSIDE RECORDS SUMMARY | 2024-11-07 16:00 | XMS_ITS | Encounter Summary ---
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 Gender Identity Not on file Sexual [...] on filedocumented in this encounter Care Teams Manufacturing Sales Representative Relationship Specialty Start Date End Date Deacon Eisenberg PCP - General 11/22/18 02/22/20 Perry Romero MD PCP - General Internal Medicine 02/23/20 Leonidas Carroll MD Cash Applications Representative Cardiology 05/23/19 Love Jones, PT Physical Therapist Physical Therapy 09/28/22 Arthur Bateman MD [address] [address] Referring Physician Anesthesiology 09/28/22 Karl Cha MD [address] [place] [address] Referring Physician Orthopedic Surgery 11/24/23 documented as of this encounter
--- OUTSIDE RECORDS SUMMARY | 2024-11-07 16:00 | XMS_ITS | Encounter Summary ---
Author Organization [facility] Address [address] [place] [address] Phone Care Team Providers Care Vocational Technical Education Teacher Name Role Phone Leonidas Carroll MD Unavailable [phone] Perry Romero MD Primary Care Provider [phone] Love Jones PT Unavailable Unavailab Arthur Law MD Unavailable Karl Cha MD Unavailable [phone] Encounter Details Date Type Department Care Team (Late st Contact Info) Description 10/18/2024 Results Follow-Up [facility] Cardiology [address] [facility] Medicine 8th [place] [address] [place] [address] Leonidas Carroll MD [address] [facility] [address] [place] [address] Basic metabolic panel, eGFR Social [...] do you attend [facility] or sabianist services? 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 Gender Identity Not on file Sexual [...] Chronic Care Management No change(08/10 10:32 AM CARAMEL CANDY MAKER HELPER) No Brissa Muse RN Note: Problem: [...] hypertension documented in this encounter Care Teams Vocational Technical Education Teacher Relationship Specialty Start Date End Date Perry Romero MD PCP - General Internal Medicine 02/23/20 Leonidas Carroll MD Marine Engineering Technicians Cardiology 05/23/19 Love Jones, PT Physical Therapist Physical Therapy 09/28/22 Arthur Bateman MD [address] [address] Referring Physician Anesthesiology 09/28/22 Karl Cha MD [address] [place] [address] Referring Physician Orthopedic Surgery 11/24/23 documented as of this encounter
--- OUTSIDE RECORDS SUMMARY | 2024-11-07 16:01 | XMS_ITS | Encounter Summary ---
Author Organization [facility] Address [address] [place] [address] Care Team Providers Care Party Supply Specialist Name Role Phone Leonidas Carroll MD Unavailable [phone] Perry Romero MD Primary Care Provider [phone] Love Jones PT Unavailable Unavailab Arthur Law MD Unavailable Karl Cha MD Unavailable [phone] Encounter Details Date Type Department Care Team (Late st Contact Info) Description 10/28/2021 Telephone [facility] Radiology [address] [place], [place] [id number] Alberto Pack MD PhD [address] [place] [address] Social History Tobacco Use Types Packs/Day Years [...] do you attend [facility] or catholic services? 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 Author CCM Chronic Pain Care Plan Chronic Care Management No change(08/10 10:32 AM RUG CLEANING SUPERVISOR) No Birssa Muse, RN Note: Problem: Chronic Pain Goals: 1. Minimize further functional decline 2. Maximize quality of life 3. Control pain Strategies: - Activity/exercise program recommendation - Conservative stepwise pain medicine strategy with multi-disciplinary approach - Recommend healthy lifestyle strategies and compensatory methods as needed documented as of this encounter Visit Diagnoses Not on filedocumented in this encounter Care Teams Party Supply Specialist Relationship Specialty Start Date End Date Perry Romero MD PCP - General Internal Medicine 02/23/20 Leonidas Carroll MD Mica Machine Operator Cardiology 05/23/19 Love Jones, PT Physical Therapist Physical Therapy 09/28/22 Arthur Bateman MD [address] [address] Referring Physician Anesthesiology 09/28/22 Karl Cha MD [address] [place] [address] Referring Physician Orthopedic Surgery 11/24/23 documented as of this encounter
--- OUTSIDE RECORDS SUMMARY | 2024-11-07 16:01 | XMS_ITS | Encounter Summary ---
Author Organization [facility] Address [address] [place] [address] Phone Care Team Providers Care Tong Setter Name Role Phone Leonidas Carroll MD Unavailable [phone] Perry Romero MD Primary Care Provider [phone] Love Jones PT Unavailable Unavailab Arthur Law MD Unavailable Karl Cha MD Unavailable [phone] Encounter Details Date Type Department Care Team (Latest Contact Info) Description 11/02/2024 Orders Only [facility] Scanning, Provider Social History Tobacco Use Types [...] often do you attend chur ch or hindu services? 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 Author CCM Chronic Pain Care Plan Chronic Care Management No change(08/10 10:32 AM BACKSIDE GRINDER) No Brissa Muse, RN Note: Problem: Chronic Pain Goals: 1. Minimize further functional decline 2. Maximize quality of life 3. Control pain Strategies: - Activity/exercise program recommendation - Conservative stepwise pain medicine strategy with multi-disciplinary approach - Recommend healthy lifestyle strategies and compensatory methods as needed documented as of this encounter Procedures Procedure Name Priority Date/Time Associated Diagnosis Comments SCAN - LABS 11/02/2024 documented in this encounter Results * SCAN - LABS (11/02/2024) us Provider Scanning Final Result documented in this encounter Visit Diagnoses Not on filedocumented in this encounter Care Teams Tong Setter Relationship Specialty Start Date End Date Perry Romero MD PCP - General Internal Medicine 02/23/20 Leonidas Carroll MD Academic Director Cardiology 05/23/19 Love Jones, PT Physical Therapist Physical Therapy 09/28/22 Arthur Bateman MD [address] [address] Referring Physician Anesthesiology 09/28/22 Karl Cha MD [facility] [place] [address] Referring Physician Orthopedic Surgery 11/24/23 documented as of this encounter
--- OUTSIDE RECORDS SUMMARY | 2024-11-07 16:01 | XMS_ITS | Encounter Summary ---
Author Organization [facility] Address [address] [place] [address] Phone Care Team Providers Care Bore Mill Operator Name Role Phone Leonidas Carroll MD Unavailable [phone] Perry Romero MD Primary Care Provider Love Jones PT Unavailable Unavailab Arthur Law MD Unavailable Karl Cha MD Unavailable [phone] Encounter Details Date Type Department Care Team (Late st Contact Info) Description 06/22/[address] [facility] Cardiology [address] [facility] 8th [place] [address] [place] [address] Leonidas Carroll MD [address] [facility] [address] [place] [address] Social History Tobacco Use Types [...] week 05/02/2021 How often do you attend [facility] or synagogue services? 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 Author CCM Chronic Pain Care Plan Chronic Care Management No change(08/10 10:32 AM ANESTHESIOLOGY FACULTY) Brissa Pate, RN Note: Problem: Chronic Pain Goals: 1. Minimize further functional decline 2. Maximize quality of life 3. Control pain Strategies: - Activity/exercise program recommendation - Conservative stepwise pain medicine strategy with multi-disciplinary approach - Recommend healthy lifestyle strategies and compensatory methods as needed documented as of this encounter Visit Diagnoses Not on filedocumented in this encounter Care Teams Bore Mill Operator Relationship Specialty Start Date End Date Perry Romero MD PCP - General Internal Medicine 02/23/20 Leonidas Carroll MD Research Associate Cardiology 05/23/19 Love Jones, PT Physical Therapist Physical Therapy 09/28/22 Arthur Bateman MD [address] [address] Referring Physician Anesthesiology 09/28/22 Karl Cha MD [address] [place] [address] Referring Physician Orthopedic Surgery 11/24/23 documented as of this encounter
--- OUTSIDE RECORDS SUMMARY | 2024-11-07 16:01 | XMS_ITS | Encounter Summary ---
Author Organization [facility] Address [address] [place] [address] Phone Care Team Providers Care Registered Pharmacist Name Role Phone Lina Mcadams MD Primary Care Provide r Deacon Eisenberg DO Primary Care Provider [phone] Leonidas Carroll MD Unavailable [phone] Perry Romero MD Primary Care Provider [phone] Love Jones PT Unavailable Unavailab Arthur Law MD Unavailable Karl Cha MD Unavailable [phone] Encounter Details Date Type Department Care Team (Late st Contact Info) Description 07/08/2018 Telephone [facility] Cardiology [address] [facility] Advanced Medicine 8th [place] [address] [place] [address] Leonidas Carroll MD [address] [facility] [address] [place], [place] [id number] Social History Tobacco Use Types Packs/Day Years Used Date Smoking Tobacco: Former Cigarettes Q uit: 2002 Smokeless Tobacco: Never Alcohol Use Standard Drinks/Week Comments No 0 (1 standard drink = 0.6 oz pur e alcohol) Sex and Gender Information Value Date Recorded Sex Assigned at Not on file 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 Gender Identity Not on file Sexual Orientation Not on file documented as of this encounter Plan of Treatment Not on file documented as of this encounter Visit Diagnoses Not on filedocumented in this encounter Care Teams Registered Pharmacist Relationship Specialty Start Date End Date Lina Mcadams MD [address] [place] [address] PCP - General 01/14/18 11/21/18 Deacon Eisenberg DO [address] [place] [address] PCP - General 11/22/18 02/22/20 Perry Romero MD [address] [address] PCP - General Internal Medicine 02/23/20 Leonidas Carroll MD [address] [place] [address] Direct Chill Caster Cardiology 05/23/19 Love oJnes, PT Physical Therapist Physical Therapy 09/28/22 Arthur Bateman MD [address] [address] Referring Physician Anesthesiology 09/28/22 Karl Cha MD [facility] [place] [address] Referring Physician Orthopedic Surgery 11/24/23 documented as of this encounter
--- OUTSIDE RECORDS SUMMARY | 2024-11-07 16:01 | XMS_ITS | Encounter Summary ---
Author Organization [facility] Address [address] [place] [address] Care Team Providers Care Imposer Name Role Phone Leonidas Carroll MD Unavailable [phone] Perry Romero MD Primary Care Provider [phone] Love Jones PT Unavailable Unavailab Arthur Law MD Unavailable Karl Cha MD Unavailable [phone] Reason for Visit * Reason Onset Date Comments pre proc blood thinner 07/24/2021 Encounter Details Date Type Department Care Team (Late st Contact Info) Description 07/24/2021 Telephone [facility] [address] [facility] [address] Medicine [address] [place], [place] [id number] Arthur Bateman MD [address] [facility] [address] [place], [place] [id number] pre proc blood thinner Social History Tobacco [...] often do you attend chur ch or rastafari services? 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 Author CCM Chronic Pain Care Plan Chronic Care Management No change(08/10 10:32 AM WOUND CARE COORDINATOR) No Brissa Muse RN Note: Problem: Chronic Pain Goals: 1. Minimize further functional decline 2. Maximize quality of life 3. Control pain Strategies: - Activity/exercise program recommendation - Conservative stepwise pain medicine strategy with multi-disciplinary approach - Recommend healthy lifestyle strategies and compensatory methods as needed documented as of this encounter Visit Diagnoses Not on filedocumented in this encounter Care Teams Imposer Relationship Specialty Start Date End Date Perry Romero MD PCP - General Internal Medicine 02/23/20 Leonidas Carroll MD Senior Director Creative Services Cardiology 05/23/19 Love Jones, PT Physical Therapist Physical Therapy 09/28/22 Arthur Bateman MD [address] [address] Referring Physician Anesthesiology 09/28/22 Karl Cha MD [address] [place] [address] Referring Physician Orthopedic Surgery 11/24/23 documented as of this encounter
--- OUTSIDE RECORDS SUMMARY | 2024-11-07 16:01 | XMS_ITS | Clinical Summary ---
Author Organization [facility] Address [address] [place] [address] Phone Care Team Providers Care Printing Plate Clerk Name Role Phone Provider, None Primary Care [...] 6:18 AM CDT Height 180.3 cm (5' 11) 02/23/2020 6:18 AM CDT Body Mass Index [...] age to complete this topic Insurance MEDICARE [facility] Care Teams Printing Plate Clerk Relationship Specialty Start Date End Date Provider, None [place] PCP - General 02/20/20
--- OUTSIDE RECORDS SUMMARY | 2024-11-07 16:01 | XMS_ITS | CONTINUITY OF CARE DOCUMENT ---
Author Name david rashmideandra Address Unknown Organization [facility] Address [address] [facility] [address] [place] [address] Phone [phone] Care Team Providers Care Procurement Coordinator Name Role Phone Pedro QUINONES, Janay Unavailable KERRY HAIR MD Unavailable DIOGENES QUINONES, SONAM Unavailable Unavailable INSURANCE PROVIDERS Payer name Policy type / Coverage type [place] red republican ID [facility] Blue [facility] [id number] [place] Medicare [id number]
--- OUTSIDE RECORDS SUMMARY | 2024-11-07 16:01 | XMS_ITS | Encounter Summary ---
Author Organization [facility] Address [address] [place] [address] Phone Care Team Providers Care Strawhat Sizer Name Role Phone Deaocn Eisenberg DO Primary Care Provider [phone] Provider, None Primary Care Provider Unavailabl e Encounter Details Date Type Department Care Team (Late st Contact Info) Description 02/15/2020 Transcribe Orders [facility] Preop/Pacu II [address] [place] [id number] Anish Martinez MD [address] [place] [address] Pre-op testing (Primary Dx) Social History Tobacco [...] ABO TYPING AB 02/20/2020 2:05 PM CDT [facility] RH Positive 02/20/2020 2:05 PM CDT [facility] ABSC Negative 02/20/2020 2:05 PM CDT [facility] Blood Venipuncture / Unknown 02/20/2020 10:52 AM CDT 02/20/2020 11:43 AM CDT us Anish Martinez MD BLOOD BANK ORDERABLES Edited Result - Final [facility] #[address] [place] [address] documented in this encounter Visit Diagnoses Diagnosis Pre-op testing- Primary Preoperative examination, unspecified documented in this encounter Care Teams Strawhat Sizer Relationship Specialty Start Date End Date Deacon Eisenberg DO [address] [place] [address] PCP - General Family Medicine 11/15/19 02/19/20 Provider, None [place] PCP - General 02/20/20 documented as of this encounter
--- OUTSIDE RECORDS SUMMARY | 2024-11-07 16:01 | XMS_ITS | Encounter Summary ---
Author Organization [facility] Address [address] [place] [address] Care Team Providers Care Waxer Floor Name Role Phone Deacon Eisenberg DO Primary Care Provider [phone] Leonidas Carroll MD Unavailable [phone] Perry Romero MD Primary Care Provider Love Jones PT Unavailable Unavailab Arthur Law MD Unavailable Karl Cha MD Unavailable [phone] Encounter Details Date Type Department Care Team (Late st Contact Info) Description 06/03/2019 Documentation [facility] Case Management [address] [place] [address] Shahram Baxter, RN Social History Tobacco Use Types Packs/Day Years Used Date Smoking Tobacco: Former Cigarettes 1 28 1 975 - 2002 Smokeless Tobacco: Never Alcohol Use Standard Drinks/Week Comments Not Currently 0 (1 standard drink = 0.6 oz pur e alcohol) Sex and Gender Information Value Date Recorded Sex Assigned at Not on file 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 However, notified by Cata, patient arranged discharge transportaion and Left for discharge prior to Fabric Awning Repairer pravin greene Please call the Weekend Fabric Awning Repairer @ [phone] if additional assistance needed. T END WHEEL LOADER OPERATOR documented in this encounter Plan of Treatment Not on file documented as of this encounter Visit Diagnoses Not on filedocumented in this encounter Care Teams Waxer Floor Relationship Specialty Start Date End Date Deacon Eisenberg DO PCP - General 11/22/18 02/22/20 Perry Romero MD PCP - General Internal Medicine 02/23/20 Leonidas Carroll MD Motor Coach Tour Operator Cardiology 05/23/19 Love Jones, PT Physical Therapist Physical Therapy 09/28/22 Arthur Bateman MD [address] [address] Referring Physician Anesthesiology 09/28/22 Karl Cha MD [facility] [place] [address] Referring Physician Orthopedic Surgery 11/24/23 documented as of this encounter
--- OUTSIDE RECORDS SUMMARY | 2024-11-07 16:01 | XMS_ITS | Encounter Summary ---
Author Organization [facility] Address [address] [place] [address] Phone Care Team Providers Care Fitting Supervisor Name Role Phone Tim Sanchez MD Primary Care Provider [phone] Lina Mcadams MD Primary Care Provide r Deacon Eisenberg DO Primary Care Provider [phone] Leonidas Carroll MD Unavailable [phone] Perry Romero MD Primary Care Provider [phone] Love Jones PT Unavailable Unavailab Arthur Law MD Unavailable Karl Cha MD Unavailable [phone] Encounter Details Date Type Department Care Team (Late st Contact Info) Description 08/01/2017 Orders Only [facility] CAR CLINCONV ProviderHeena MD [address] [place] [address] Social History Tobacco Use Types Packs/Day Years Used Date Smoking Tobacco: Never Assessed Sex and Gender Information Value Date Recorded Sex Assigned at Not on file 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 Gender Identity Not on file Sexual Orientation [...] on filedocumented in this encounter Care Teams Fitting Supervisor Relationship Specialty Start Date End Date Tim Sanchez MD [address] [facility] [address] [place] [address] PCP - General 09/29/16 01/13/18 Lina Mcadams MD [address] [facility] [address] [place] [address] PCP - General 01/14/18 11/21/18 Deacon Eisenberg DO [address] [facility] [address] [place] [address] PCP - General 11/22/18 02/22/20 Perry Romero MD [address] [address] PCP - General Internal Medicine 02/23/20 Leonidas Carroll MD [address] [facility] [address] [place] [address] Odd Job Worker Cardiology 05/23/19 Love Jones, PT Physical Therapist Physical Therapy 09/28/22 Arthur Bateman MD [address] [facility] [address] [place] [address] Referring Physician Anesthesiology 09/28/22 Karl Cha MD [address] [facility] [address] [place] [address] Referring Physician Orthopedic Surgery 11/24/23 documented as of this encounter
--- OUTSIDE RECORDS SUMMARY | 2024-11-07 16:01 | XMS_ITS | Clinical Summary ---
Author Organization [facility] Address [address] [place] [address] Care Team Providers Care Stereo Compiler Name Role Phone Tim Sanchez MD Primary Care Provider [phone] Source Comments [facility],non-owned Affiliates and Associated Physician Practices is amultiple site organization consisting of ambulatory clinics and hospital sitesin [place], [place], [place] and [place]. This disclosure is being madepursuant to the Care Everywhere program and may not contain all information available regarding this patient. Last updated 18.[facility] Allergies No known active allergies Medications * [...] (11/07/2020): Added automatically from request for surgery [id number] Rosacea 09/18/2020 Achilles tendon contracture, right 07/04/2020 Overview (11/07/2020): Added automatically from request for surgery [id number] Metatarsalgia of right foot 07/04/2020 Overview (11/07/2020): Added automatically from request for surgery [id number] Sesamoiditis 07/04/2020 Overview (11/07/2020): Added automatically from request for surgery [id number] Joint pain 02/28/2020 Overview (11/07/2020): Last Assessment & Plan: Medrol dose pack Tramadol Q6 PRN (use, safety, s/e reviewed) Referral to Pain Management 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 Transferred to [facility], s/p [facility] on 11/22. 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 Gender Identity Not on file Sexual Orientation [...] age to complete this topic Insurance MEDICARE [facility]IC[facility] Member Subscriber Plan / Payer (Ef fective for All Dates) Name:Vicky Youssef Relation to Subscriber:Self Name:Vicky Youssef Payer ID:[id number] (NAIC) Type:Commercial Address: [address] [place] [id number] SELF PAY NO INSURANCE Member Subscriber Plan / Payer (Ef fective for All Dates) Name:Vicky Youssef Member ID:Not on file Relation to Subscriber:Not on file Name:VICKY YOUSSEF Subscriber ID:Not on file (Home) Address: [address] [place] [address] Payer ID:Not on file Group ID:Not on file Type:Self Pay Address: [place], [place] MEDICARE Care Teams Stereo Compiler Relationship Specialty Start Date End Date Tim Sanchez MD [address] [place] [address] PCP - General 10/05/17
--- OUTSIDE RECORDS SUMMARY | 2024-11-07 16:01 | XMS_ITS | Encounter Summary ---
Author Organization [facility] Healthcare Address [address] [place] [address] Care Team Providers Care Manager Employment Name Role Phone Leonidas Carroll MD Unavailable [phone] Perry Romero MD Primary Care Provider [phone] Love Jones PT Unavailable Unavailab Arthur Law MD Unavailable Karl Cha MD Unavailable [phone] Encounter Details Date Type Department Care Team (Late st Contact Info) Description 07/08/2023 Telephone [facility] [place] [facility] [address] [facility] Advanced Medicine [address] [place], [place] [id number] Arthur Bateman MD [address] [facility] [address] [place] [address] Social History Tobacco Use Types Packs/Day Years [...] week 05/02/2021 How often do you attend [facility] or voodoo services? 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 Author CCM Chronic Pain Care Plan Chronic Care Management No change(08/10 10:32 AM SECURITY CHIEF MUSEUM) No Brissa Muse RN Note: Problem: Chronic Pain Goals: 1. Minimize further functional decline 2. Maximize quality of life 3. Control pain Strategies: - Activity/exercise program recommendation - Conservative stepwise pain medicine strategy with multi-disciplinary approach - Recommend healthy lifestyle strategies and compensatory methods as needed documented as of this encounter Visit Diagnoses Not on filedocumented in this encounter Care Teams Manager Employment Relationship Specialty Start Date End Date Perry Romero MD PCP - General Internal Medicine 02/23/20 Leonidas Carroll MD [employer] Member Cardiology 05/23/19 Love Jones, PT Physical Therapist Physical Therapy 09/28/22 Arthur Bateman MD [address] [address] Referring Physician Anesthesiology 09/28/22 Karl Cha MD [address] [place] [address] Referring Physician Orthopedic Surgery 11/24/23 documented as of this encounter
--- OUTSIDE RECORDS SUMMARY | 2024-11-07 16:01 | XMS_ITS | Continuity of Care Document ---
Author Organization [facility] Address [address] [place] [address] [address] [place] [address] Phone Care Team Providers Care Iron Bender Name Role Phone Mary Ellen Dunn Unavailable Unavailable Advance Directives Directive Yes / No Effective Date File Name No Information Encounters Encounter Description Practice Location Reason(s) For Visit Diagnoses Date Provider Providers Copied on Encounter [facility], [address] [place] [address] [address], [place], [place], [id number], [place] tel:[phone] [facility] [place] No Information 4-[address] Mona Hyde. [address] [facility] , [address], [place], [address], [place]. tel:[phone] Family History Family Member Type Diagnosis Age [...]
--- OUTSIDE RECORDS SUMMARY | 2024-11-07 16:01 | XMS_ITS | Encounter Summary ---
Author Organization [facility] Address [address] [place] [address] Care Team Providers Care Cigar Packer And Shader Name Role Phone Leonidas Carroll MD Unavailable [phone] Perry Romero MD Primary Care Provider [phone] Love Jones PT Unavailable Unavailab Arthur Law MD Unavailable Karl Cha MD Unavailable [phone] Encounter Details Date Type Department Care Team (Late st Contact Info) Description 11/03/2024 Orders Only [facility] [address] [address] Perry Romero MD [facility] [address] [address] Social History Tobacco Use Types [...] How often do you attend [facility] or church services? 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 Author CCM Chronic Pain Care Plan Chronic Care Management No change(08/10 10:32 AM CORE WINDER MACHINE OPERATOR) No Brissa Muse, RN Note: Problem: Chronic Pain Goals: 1. Minimize further functional decline 2. Maximize quality of life 3. Control pain Strategies: - Activity/exercise program recommendation - Conservative stepwise pain medicine strategy with multi-disciplinary approach - Recommend healthy lifestyle strategies and compensatory methods as needed documented as of this encounter Procedures Procedure Name Priority Date/Time Associated Diagnosis Comments SCAN - LABS 11/03/2024 4:59 PM CDT documented in this encounter Results * SCAN - LABS (11/03/2024 4:59 PM CDT) us Perry Romero MD Final Result documented in this encounter Visit Diagnoses Not on filedocumented in this encounter Care Teams Cigar Packer And Shader Relationship Specialty Start Date End Date Perry Romero MD PCP - General Internal Medicine 02/23/20 Leonidas Carroll MD Moss Gatherer Cardiology 05/23/19 Love Jones, PT Physical Therapist Physical Therapy 09/28/22 Arthur Bateman MD [address] [address] Referring Physician Anesthesiology 09/28/22 Karl Cha MD [facility] [place] [address] Referring Physician Orthopedic Surgery 11/24/23 documented as of this encounter
--- OUTSIDE RECORDS SUMMARY | 2024-11-07 16:01 | XMS_ITS | Encounter Summary ---
Author Organization [facility] Address [address] [place] [address] Phone Care Team Providers Care Secondary Special Education Teacher Name Role Phone Lina Mcadams MD Primary Care Provide r Deacon Eisenberg DO Primary Care Provider [phone] Leonidas aCrroll MD Unavailable [phone] Perry Romero MD Primary Care Provider [phone] Love Jones PT Unavailable Unavailab Arthur Law MD Unavailable Karl Cha MD Unavailable [phone] Encounter Details Date Type Department Care Team (Late st Contact Info) Description 01/25/2018 Telephone [facility] Cardiology [address] 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 Gender Identity Not on file Sexual Orientation Not on file documented as of this encounter Plan of Treatment Not on file documented as of this encounter Visit Diagnoses Not on filedocumented in this encounter Care Teams Secondary Special Education Teacher Relationship Specialty Start Date End Date Lina Mcadams MD [address] [place] [address] PCP - General 01/14/18 11/21/18 Deacon Eisenberg DO [address] [place] [address] PCP - General 11/22/18 02/22/20 Perry Romero MD [address] [place] [address] PCP - General Internal Medicine 02/23/20 Leonidas Carroll MD [address] [place] [address] Laborer Cardiology 05/23/19 Love Jones, PT Physical Therapist Physical Therapy 09/28/22 Arthur Bateman MD [address] [address] Referring Physician Anesthesiology 09/28/22 Karl Cha MD [address] [place] [address] Referring Physician Orthopedic Surgery 11/24/23 documented as of this encounter
--- OUTSIDE RECORDS SUMMARY | 2024-11-07 16:01 | XMS_ITS | Encounter Summary ---
Author Organization [facility] Address [address] [place] [address] Care Team Providers Care Plate Take Out Worker Name Role Phone Leonidas Carroll MD Unavailable [phone] Perry Romero MD Primary Care Provider Love Jones PT Unavailable Unavailab Arthur Law MD Unavailable Karl Cha MD Unavailable [phone] Encounter Details Date Type Department Care Team (Late st Contact Info) Description 11/02/2024 Orders Only [facility] [address] [address] Perry Romero MD [facility] [address] [address] Social History Tobacco Use Types [...] week 05/02/2021 How often do you attend [facility] or mosque services? 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 Author CCM Chronic Pain Care Plan Chronic Care Management No change(08/10 10:32 AM STRAPPER OPERATOR) No Brissa Muse, RN Note: Problem: [...] Associated Diagnosis Comments SCAN - LABS 11/02/2024 11:22 AM CDT documented in this encounter Results * SCAN - LABS (11/02/2024 11:22 AM CDT) us Perry Romero MD Final Result documented in this encounter Visit Diagnoses Not on filedocumented in this encounter Care Teams Plate Take Out Worker Relationship Specialty Start Date End Date Perry Romero MD PCP - General Internal Medicine 02/23/20 Leonidas Carroll MD Fire Captain Marine Cardiology 05/23/19 Love Jones, PT Physical Therapist Physical Therapy 09/28/22 Arthur Bateman MD [address] [address] Referring Physician Anesthesiology 09/28/22 Karl Cha MD [facility] [place] [address] Referring Physician Orthopedic Surgery 11/24/23 documented as of this encounter
--- OUTSIDE RECORDS SUMMARY | 2024-11-07 16:01 | XMS_ITS | Encounter Summary ---
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
--- OUTSIDE RECORDS SUMMARY | 2024-11-07 16:01 | XMS_ITS | Encounter Summary ---
Author Organization [facility] Address [address] [place] [address] Phone Care Team Providers Care Strickler Attendant Name Role Phone Tim Sanchez MD Primary Care Provider Lina Mcadams MD Primary Care Provide r Deacon Eisenberg DO Primary Care Provider [phone] Leonidas Carroll MD Unavailable [phone] Perry Romero MD Primary Care Provider [phone] Love Jones PT Unavailable Unavailab Arthur Law MD Unavailable Karl Cha MD Unavailable [phone] Encounter Details Date Type Department Care Team (Late st Contact Info) Description 05/13/2015 Orders Only [facility] CAR CLINCONV ProviderHeena MD [address] [place] [address] Social History Tobacco Use Types Packs/Day Years Used Date Smoking Tobacco: Never Assessed Sex and Gender Information Value Date Recorded Sex Assigned at Not on file 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 Gender Identity Not on file Sexual [...] on filedocumented in this encounter Care Teams Strickler Attendant Relationship Specialty Start Date End Date Tim Sanchez MD [address] [facility] [address] [place] [address] PCP - General 09/29/16 01/13/18 Lina Mcadams MD [address] [facility] [address] [place] [address] PCP - General 01/14/18 11/21/18 Deacon Eisenberg DO [address] [facility] [address] [place] [address] PCP - General 11/22/18 02/22/20 Perry Romero MD [address] [address] PCP - General Internal Medicine 02/23/20 Leonidas Carroll MD [address] [facility] [address] [place] [address] Scratch Polisher Cardiology 05/23/19 Love Jones, PT Physical Therapist Physical Therapy 09/28/22 Arthur Bateman MD [address] [facility] [address] [place] [address] Referring Physician Anesthesiology 09/28/22 Karl Cha MD [address] [facility] [address] [place] [address] Referring Physician Orthopedic Surgery 11/24/23 documented as of this encounter
--- OUTSIDE RECORDS SUMMARY | 2024-11-07 16:01 | XMS_ITS | Encounter Summary ---
Author Organization [facility] Address [address] [place] [address] Phone Care Team Providers Care Recreation Technician Name Role Phone Tim Sanchez MD Primary Care Provider [phone] Lina Mcadams MD Primary Care Provide r Deacon Eisenberg DO Primary Care Provider [phone] Leonidas Carroll MD Unavailable [phone] Perry Romero MD Primary Care Provider [phone] Love Jones PT Unavailable Unavailab Arthur Law MD Unavailable Karl Cha MD Unavailable [phone] Encounter Details Date Type Department Care Team (Latest Contact Info) Description 03/05/2017 Orders Only [facility] CONVERSION Scanning, Provider Social History Tobacco Use Types Packs/Day Years Used Date Smoking Tobacco: Never Assessed Sex and Gender Information Value Date Recorded Sex Assigned at Not on file 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 Gender Identity Not on file Sexual Orientation [...] filedocumented in this encounter Care Teams Recreation Technician Relationship Specialty Start Date End Date Tim Sanchez MD [address] [place] [address] PCP - General 09/29/16 01/13/18 Lina Mcadams MD [address] [facility] [address] [place] [address] PCP - General 01/14/18 11/21/18 Deacon Eisenberg DO [address] [address] PCP - General 11/22/18 02/22/20 Perry Romero MD [address] [address] PCP - General Internal Medicine 02/23/20 Leonidas Carroll MD [address] [address] Authors Motivational Cardiology 05/23/19 Love Jones, PT Physical Therapist Physical Therapy 09/28/22 Arthur Bateman MD [address] [address] Referring Physician Anesthesiology 09/28/22 Karl Cha MD [address] [facility] [address] [place] [address] Referring Physician Orthopedic Surgery 11/24/23 documented as of this encounter
--- OUTSIDE RECORDS SUMMARY | 2024-11-07 16:01 | XMS_ITS | Encounter Summary ---
Author Organization [facility] Address [address] [place] [address] Phone Care Team Providers Care Manager Proposal Name Role Phone Tim Sanchez MD Primary Care Provider [phone] Lina Mcadams MD Primary Care Provide r Deacon Eisenberg DO Primary Care Provider [phone] Leonidas Carroll MD Unavailable [phone] Perry Romero MD Primary Care Provider [phone] Love Jones PT Unavailable Unavailab Arthur Law MD Unavailable Karl Cha MD Unavailable [phone] Encounter Details Date Type Department Care Team (Late st Contact Info) Description 09/15/2016 Orders Only [facility] CLINCON[facility] ProviderHeena MD [address] [place] [address] Social History Tobacco Use Types Packs/Day Years Used Date Smoking Tobacco: Never Assessed Sex and Gender Information Value Date Recorded Sex Assigned at Not on file 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 Gender Identity Not on file Sexual [...] filedocumented in this encounter Care Teams Manager Proposal Relationship Specialty Start Date End Date Tim Sanchez MD [address] [facility] [address] [place] [address] PCP - General 09/29/16 01/13/18 Lina Mcadams MD [address] [facility] [address] [place] [address] PCP - General 01/14/18 11/21/18 Deacon Eisenberg DO [address] [facility] [address] [place] [address] PCP - General 11/22/18 02/22/20 Perry Romero MD [address] [address] PCP - General Internal Medicine 02/23/20 Leonidas Carroll MD [address] [facility] [address] [place] [address] Liquor Runner Cardiology 05/23/19 Love Jones, PT Physical Therapist Physical Therapy 09/28/22 Arthur Bateman MD [address] [facility] [address] [place] [address] Referring Physician Anesthesiology 09/28/22 Karl Cha MD [address] [facility] [address] [place] [address] Referring Physician Orthopedic Surgery 11/24/23 documented as of this encounter
--- OUTSIDE RECORDS SUMMARY | 2024-11-07 16:01 | XMS_ITS | Encounter Summary ---
Author Organization [facility] Address [address] [place] [address] Phone Care Team Providers Care Property Condition Assessor Name Role Phone Tim Sanchez MD Primary Care Provider [phone] Lina Mcadams MD Primary Care Provide r Deacon Eisenberg DO Primary Care Provider [phone] Leonidas Carroll MD Unavailable [phone] Perry Romero MD Primary Care Provider [phone] Love Jones PT Unavailable Unavailab Arthur Law MD Unavailable Karl Cha MD Unavailable [phone] Encounter Details Date Type Department Care Team (Late st Contact Info) Description 09/10/2015 Orders Only [facility] CAR CLINCONV ProviderHeena MD [address] [place] [address] Social History Tobacco Use Types Packs/Day Years Used Date Smoking Tobacco: Never Assessed Sex and Gender Information Value Date Recorded Sex Assigned at Not on file 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 Gender Identity Not on file Sexual Orientation [...] on filedocumented in this encounter Care Teams Property Condition Assessor Relationship Specialty Start Date End Date Tim Sanchez MD [address] [facility] [address] [place] [address] PCP - General 09/29/16 01/13/18 Lina Mcadams MD [address] [facility] [address] [place] [address] PCP - General 01/14/18 11/21/18 Deacon Eisenberg DO [address] [facility] [address] [place] [address] PCP - General 11/22/18 02/22/20 Perry Romero MD [address] [address] PCP - General Internal Medicine 02/23/20 Leonidas Carroll MD [address] [facility] [address] [place] [address] Flexo Operator Cardiology 05/23/19 Love Jones, PT Physical Therapist Physical Therapy 09/28/22 Arthur Bateman MD [address] [facility] [address] [place] [address] Referring Physician Anesthesiology 09/28/22 Karl Cha MD [address] [facility] [address] [place] [address] Referring Physician Orthopedic Surgery 11/24/23 documented as of this encounter
--- OUTSIDE RECORDS SUMMARY | 2024-11-07 16:01 | XMS_ITS | Encounter Summary ---
Author Organization [facility] Address [address] [place] [address] Phone Care Team Providers Care Corn Lab Technician Name Role Phone Tim Sanchez MD Primary Care Provider [phone] Lina Mcadams MD Primary Care Provide r Deacon Eisenberg DO Primary Care Provider [phone] Leonidas Carroll MD Unavailable [phone] Perry Romero MD Primary Care Provider [phone] Love Jones PT Unavailable Unavailab Arthur Law MD Unavailable Karl Cha MD Unavailable [phone] Encounter Details Date Type Department Care Team (Late st Contact Info) Description 11/24/2015 Orders Only [facility] CAR CLINCONV ProviderHeena MD [address] [place] [address] Social History Tobacco Use Types Packs/Day Years Used Date Smoking Tobacco: Never Assessed Sex and Gender Information Value Date Recorded Sex Assigned at Not on file 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 Gender Identity Not on file Sexual [...] on filedocumented in this encounter Care Teams Corn Lab Technician Relationship Specialty Start Date End Date Tim Sanchez MD [address] [facility] [facility] [address] [place] [address] PCP - General 09/29/16 01/13/18 Lina Mcadams MD [address] [facility] 15 [place] [address] PCP - General 01/14/18 11/21/18 Deacon Eisenberg DO [address] [facility] [address] [place] [address] PCP - General 11/22/18 02/22/20 Perry Romero MD [address] [address] PCP - General Internal Medicine 02/23/20 Leonidas Carroll MD [address] [facility] 15 [place] [address] Retail Department Manager Cardiology 05/23/19 Love Jones, PT Physical Therapist Physical Therapy 09/28/22 Arthur Bateman MD [address] [facility] [address] [place] [address] Referring Physician Anesthesiology 09/28/22 Karl Cha MD [address] [facility] [facility] [address] [place] [address] Referring Physician Orthopedic Surgery 11/24/23 documented as of this encounter
--- OUTSIDE RECORDS SUMMARY | 2024-11-07 16:02 | XMS_ITS | Referral Summary ---
Author Organization [facility] Address [address] [place] [address] Care Team Providers Care Phys Therapist Name Role Phone Rigo Carroll MD Unavailable [phone] Perry Romero MD Primary Care Provider Love Jones PT Unavailable Unavailab Arthur Law MD Unavailable Karl Cha MD Unavailable [phone] Encounters Date Type Department Care Team Description 11/03/2024 Orders Only [facility] [address] [facility] [address] [place] [address] Perry Romero MD 11/02/2024 Orders Only [facility] Scanning, Provider 11/02/2024 Orders Only [facility] [address] [facility] [address] [place] [phone] Perry Romero MD 11/01/2024 Telephone [facility] Cardiology [address] [facility] 8th [place] [address] [place] [address] Rigo Carroll MD 10/31/2024 Orders Only [facility] [address] [facility] [address] [place] [phone] Perry Romero MD 10/25/2024 1:00 PM CDT Office Visit [facility] Orthopaedic Surgery [address] [facility] 6th [place] [address] [place] [address] Sudhir Martinez MD Greater trochanteric pain syndrome of right lower extremity (Primary Dx); Chronic right hip pain; Chronic knee pain after total replacement of left knee joint 10/23/2024 Telephone [facility] Cardiology [address] [place] [address] 8th [place] [address] [place] [address] Rigo Carroll MD BP updates 10/18/2024 Results Follow-Up [facility] Cardiology [address] [place] [address] 8th [place] [address] [place] [address] Rigo Carroll MD Basic metabolic panel, eGFR 10/18/2024 10:10 AM CDT - 10/18/2024 11:59 PM CDT Hospital Encounter [address] [address] High risk medications (not anticoagulants) long-term use Discharge Disposition: Discharge to home or self care 10/18/2024 10:15 AM CDT Lab [facility] Outpatient Lab at [address] [address] Diabetes mellitus type 2 without retinopathy (HCC) (Primary Dx); High risk medications (not anticoagulants) long-term use 10/16/2024 Results Follow-Up [facility] Cardiology [address] [place] [address] 8th [place] [address] [place] [address] Rigo Carroll MD Cardiac Catheterization 10/16/2024 10:45 AM CDT - 10/16/2024 12:25 PM CDT Surgery [facility] [address] [place] [address] Clifford Sandy MD CORONARY ARTERY AND GRAFT ANGIOGRAPHY 97347 10/16/2024 8:28 AM CDT - 10/16/2024 5:00 PM CDT Hospital Encounter [facility] [address] [place] [address] Clifford Sandy MD Coronary artery disease involving barrow heart without angina pectoris, unspecified vessel or lesion type Discharge Disposition: Discharge to home or self care 10/11/2024 Orders Only [facility] Health Information Management [address] [place] [address] Scanning, Provider 10/11/2024 Orders Only [facility] Vascular at [address] [place] [phone] Ivet Montana MD Atherosclerosis of 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 (Primary Dx); Other specified symptoms and signs involving the circulatory and respiratory systems 10/11/2024 8:45 AM CDT Office Visit [facility] Vascular at [address] [place] [phone] Ivet Montana MD Peripheral vascular disease (Primary Dx); Primary hypertension; Mixed hyperlipidemia 10/05/2024 Telephone [facility] Cardiology [address] [place] [address] [place] [address] [place] [phone] Rigo Carroll MD follow up of previous orders 10/05/2024 10:00 AM CDT Office Visit [facility] Ophthalmology [address] [place] [address] 1st [place] [address] Sherri Jean-Baptiste MD 10/04/2024 1:17 PM CDT - 10/04/2024 11:59 PM CDT Hospital Encounter [facility] [address] [address] Atherosclerosis of 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 Discharge Disposition: Discharge to home or self care 10/03/2024 Results Follow-Up [facility] Cardiology [address] [place] [address] [place] [address] [place] [address] Rigo Carroll MD Pro B-type natriuretic peptide 10/03/2024 Results Follow-Up [facility] Cardiology [address] [place] [address] 8th [place] [address] [place] [address] Rigo Carroll MD CBC with auto differential, Basic metabolic panel 10/03/2024 Telephone [facility] Cardiology [address] [place] [address] [place] [address] [place] [address] Rigo Carroll MD Cath orders 10/03/2024 11:50 AM CDT - 10/03/2024 11:59 PM CDT Hospital Encounter [address] [address] Coronary artery disease involving barrow coronary artery of barrow heart without angina pectoris Discharge Disposition: Discharge to home or self care 10/03/2024 11:45 AM CDT Lab [facility] Endocrinology Metabolism and Lipid [address] [facility] 8th [place] [address] [place] [address] Coronary artery disease involving barrow coronary artery of barrow heart without angina pectoris 10/03/2024 9:15 AM CDT - 10/03/2024 11:59 PM CDT Hospital Encounter [facility] Cardiac Diagnostic Lab [address] [address] Cardiomyopathy, ischemic Discharge Disposition: Discharge to home or self care 10/03/2024 10:30 AM CDT Office Visit [facility] Cardiology [address] [facility] 8th [place] [address] [place] [address] Rigo Carroll MD Coronary artery disease involving barrow coronary artery of barrow heart without angina pectoris (Primary Dx); Primary hypertension; Pure hypercholesterolemia; Peripheral vascular disease; Presence of cardiac pacemaker 09/13/2024 Orders Only [facility] Vascular at [address] [place] [address] Ivet Montana MD Atherosclerosis of 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 (Primary Dx) 09/13/2024 8:30 AM CDT Office Visit [facility] Vascular at [address] [place] [address] Ivet Montana MD Peripheral vascular disease (Primary Dx); Mixed hyperlipidemia; Primary hypertension 09/05/2024 10:00 AM CDT Ancillary Procedure [facility] Vascular and Vein Surgery at [address] [place] [address] Atherosclerosis of 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 09/05/2024 10:00 AM CDT Ancillary Procedure [facility] and Vein Surgery at [address] [place] [address] Atherosclerosis of 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 09/05/2024 9:00 AM CDT Ancillary Procedure [facility] Vascular and Vein Surgery at [address] [place] [address] Atherosclerosis of 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; Other specified symptoms and signs involving the circulatory and respiratory systems 09/04/2024 10:30 AM CDT Office Visit [facility] [address] [place] [phone] Perry Romero MD Diabetes mellitus type II, non insulin dependent (HCC) (Primary Dx); Sick sinus syndrome (CMS/HCC) (HCC); Primary hypertension; Coronary artery disease involving barrow heart without angina pectoris, unspecified vessel or lesion type 08/30/2024 Orders Only [facility] Vascular at [address] [place] [address] Ivet Montana MD 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 Center at the [address] [address] Arthur Bateman MD Greater trochanteric bursitis of both hips (Primary Dx); Tensor fascia shorty syndrome; Spondylosis of lumbar region without myelopathy or radiculopathy Discharge Disposition: Discharge to home or self care from Last 3 Months Allergies Active Allergy Reactions Criticality Noted Date Comments Ddifgoz-Ffy-Kzi Reductase Inhibitors Other (See comments) Low 05/03/2024 Pt has an intolerance to statin drugs. 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 90 tablet 3 025 Active [...] day 60 tablet 11 025 2024 Active fenofibrate nanocrystallized (TRICOR) 145 mg tablet Take 1 tablet (145 mg total) by mouth daily 90 tablet 3 025 2025 Active tamsulosin (FLOMAX) 0.4 mg extended release capsuleIndications: Nocturia Take 1 capsule (0.4 mg total) by mouth daily 30 capsule 11 021 2021 Discontinued fenofibrate nanocrystallized (TRICOR) 145 mg tablet Take 1 tablet (145 mg total) by mouth daily 90 tablet 3 023 2024 Discontinued(R eorder) amLODIPine (NORVASC) 2.5 mg tablet TAKE 1 [...] 06/17/2023 Assessment & Plan (06/17/2023 10:00 AM LAND TITLE EXAMINER): Continue flexeril 10mg Q8 PRN Trial gabapentin 100mg Q8 TID Topical lidocaine patches 4%, on for 12 hours/off for 12 hours Will send Applegate 5/325 PRN #28, discussed that this will [...] 07/21/2021 Assessment & Plan (07/21/2021 9:52 AM LAND TITLE EXAMINER): Baseline creatine 1.3-1.5 Creatine Within patient;s baseline at 1.3 CTM Received IV fluids 500 ml on admission for creatine 1.59 Statin intolerance 07/18/2021 Assessment & Plan (07/18/2021 3:39 PM LAND TITLE EXAMINER): History of statin intolerance -Continue ezetimibe and fenofibrate DM2 (diabetes mellitus, type 2) 07/18/2021 Assessment & Plan (07/19/2021 7:58 AM LAND TITLE EXAMINER): Follow glucose and rx with insulin Metformin held for now pending cath. Assessment & Plan (07/18/2021 3:41 PM LAND TITLE EXAMINER): -Hemoglobin A1c 6.1 -Hold home metformin while inpatient -SSI while admitted -Carb consistent diet -Accuchecks BPH (benign prostatic hyperplasia) 07/18/2021 Assessment & Plan (07/18/2021 3:59 PM LAND TITLE EXAMINER): BPH s/p TURP -Continue home finasteride and tamsulosin HLD (hyperlipidemia) 07/18/2021 Assessment & Plan (10/11/2024 11:06 AM CDT): Recommend statin therapy. Assessment & Plan (09/15/2024 10:52 AM CDT): Stable continue Zetia Assessment & Plan (08/31/2024 1:57 PM CDT): Impression: Chronic stable. Plan: Continue Zetia, fenofibrate Assessment & Plan (07/21/2021 8:10 AM LAND TITLE EXAMINER): LDL ok while on non-statins due to intolerance. Continue present Rx for now Assessment & Plan (07/20/2021 8:10 AM LAND TITLE EXAMINER): LDL ok while on non-statins due to intolerance. Continue present Rx for now Assessment & Plan (07/19/2021 7:57 AM LAND TITLE EXAMINER): LDL ok while on non-statins due to intolerance. Continue present Rx for now Assessment & Plan (07/18/2021 3:52 PM LAND TITLE EXAMINER): Lipid panel WNL -Continue ezetimibe and fenofibrate [...] 07/18/19 Assessment & Plan (07/18/2021 4:00 PM LAND TITLE EXAMINER): PVOD s/p bilateral iliac stents Unstable angina 07/18/2021 Overview (07/18/2021): Added automatically from request for surgery [id number] Assessment & Plan (07/21/2021 8:10 AM LAND TITLE EXAMINER): CP concerning for USA. troponins normal, ruled out for IN. I have recommended coronary angiography and this is scheduled for today. Pt has PAD Continue IV heparin, follow labs and adjust. Continue aspirin, plavix, beta carrie, Patient asymptomatic. Cardiac catheterization scheduled for tomorrow. NPO after midnight. Assessment & Plan (07/20/2021 8:10 AM LAND TITLE EXAMINER): CP concerning for USA. troponins normal, ruled out for IN. I have recommended coronary angiography and this is scheduled for Wednesday. Pt has PAD and radial approach may be preferred. Continue IV heparin, follow labs and adjust. Continue aspirin, plavix, beta carrie, Patient asymptomatic. Cardiac catheterization scheduled for tomorrow. NPO after midnight. Assessment & Plan (07/19/2021 7:56 AM LAND TITLE EXAMINER): CP concerning for USA. troponins normal, ruled out for IN. Brief left sided chest pain since admission. [...] (03/06/2021): Added automatically from request for surgery [id number] Presbyopia 02/03/2021 Assessment & Plan (08/12/2023 5:06 PM LAND TITLE EXAMINER): -Noting increased difficulty with near vision while reading -Recommended trialing higher power reading glasses Assessment & Plan (02/03/2021 2:44 PM CDT): Correctable to 20/25 right eye (OD) and left eye (OS). Update specs as desired. Rosacea 09/18/2020 Metatarsalgia of right foot 07/04/2020 Overview (07/04/2020): Added automatically from request for surgery [id number] Sesamoiditis 07/04/2020 Overview (07/04/2020): Added automatically from request for surgery [id number] Painful orthopaedic hardware 07/04/2020 Overview (07/04/2020): Added automatically from request for surgery [id number] Achilles tendon contracture, right 07/04/2020 Overview (07/04/2020): Added automatically from request for surgery [id number] Pseudarthrosis after fusion or arthrodesis 02/28 Overview (02/28/2019): Added automatically from request for surgery [id number] Diabetes mellitus type 2 without retinopathy 05/2019 Assessment & Plan (02/09/2023 3:33 PM CDT): Continue strict BS control, annual dilated eye exams. Assessment & Plan (06/17/2022 4:09 PM LAND TITLE EXAMINER): Continue strict BS control, annual dilated eye [...] months Assessment & Plan (08/12/2023 5:05 PM LAND TITLE EXAMINER): -Follow up exam for AMD; last visit [...] 6months Assessment & Plan (06/17/2022 9:41 AM LAND TITLE EXAMINER): -No signs of exudation. -given the large [...] months Assessment & Plan (08/13/2021 3:12 PM LAND TITLE EXAMINER): No signs of exudation. Per AREDS study, [...] today on exam and by OCT C/w Brianne MEJÍAler. Continue to not smoke. Use sun protection F/u 6 mo, sooner if changes Discussed with patient that it is difficult to predict vision loss, but good vision now and taking appropriate precautions. Age-related nuclear cataract of both eyes 2018 Assessment & Plan (10/29/2024 8:35 PM CDT): NVS, follow. Assessment & Plan (06/17/2022 4:09 PM LAND TITLE EXAMINER): NVS, follow. Assessment & Plan (02/23/2019 10:32 [...] (06/08/2018): Added automatically from request for surgery [id number] Palpitations 04/15/2018 CAD (coronary artery disease) 03/08/2018 Assessment & Plan (09/04/2024 11:21 AM CDT): stable Assessment & Plan (07/18/2021 3:42 PM LAND TITLE EXAMINER): CAD s/p CABG in 2010 (KAUR-LAD which is known to be an atretic graft; vein graft-marginal; and vein graft-2nd marginal branch; RCA occluded, with collateral revascularization) -Last [facility] in 11/2018 showed patent KAUR graft [...] Diabetes mellitus type II, non insulin dependent ([facility]) 01/15/2018 Assessment & Plan (09/04/2024 11:21 AM CDT): Stable and doing well Assessment & Plan (07/21/2021 9:50 AM LAND TITLE EXAMINER): Hemoglobin a1c 6.1 - diet controlled for now Metformin on hold for [facility] Continue to monitor. Assessment & Plan (07/20/2021 8:11 AM LAND TITLE EXAMINER): Blood sugar stable. Follow-up blood sugar. Treat with insulin as appropriate Metformin being held. Assessment & Plan (02/28/2020 3:23 PM CDT): a1c at target, recommend annual eye exam. Feet are without lesions. Assessment & Plan (11/22/2018 4:43 PM CDT): On metformin 1000mg BID at home -LDSSI Assessment & Plan (11/14/2018 1:46 PM CDT): No [employer] Last A1C was 01/2018 but at goal [...] metoprolol Assessment & Plan (07/18/2021 3:53 PM LAND TITLE EXAMINER): BP currently well controlled -Continue amlodipine, lisinopril and metoprolol XL Assessment & Plan (02/28/2020 3:23 PM CDT): bp at target Assessment & Plan (11/22/2018 5:24 PM CDT): Continue home antihypertensives. Assessment & Plan (01/16/2018 10:37 AM CDT): Continue Metoprolol and Lisinopril Assessment & Plan (01/15/2018 4:52 AM CDT): Continue home lisinopril. Myocardial infarction 09/09/2017 Nonsustained ventricular tachycardia ([facility]/HCC) 0 09/15/2016 Assessment & Plan (07/18/2021 4:06 PM LAND TITLE EXAMINER): -Continue metoprolol XL -Telemetry Assessment & Plan [...] stable Assessment & Plan (07/21/2021 8:10 AM LAND TITLE EXAMINER): Pacer function stable Continue present Rx. Continue beta-carrie. Assessment & Plan (07/20/2021 8:10 AM LAND TITLE EXAMINER): Pacer function stable Continue present Rx. Continue beta-carrie. 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 Maty Weber Assessment & Plan (02/28/2020 3:23 PM CDT): No palpitations, syncope Depressive disorder 03/15/2015 Panic disorder without agoraphobia 03/15/2015 Resolved Problems Problem Noted Date Diagnosed Date Resolved Date Pain in right foot 04/24/2022 LINUS (acute kidney injury) 07/18/2021 Assessment & Plan (07/21/2021 8:12 AM LAND TITLE EXAMINER): Pt with CKDstage 3, CrCl 50 ml/min. Creatinine improved. Cath today Assessment & Plan (07/20/2021 8:11 AM LAND TITLE EXAMINER): Pt with CKDstage 3, CrCl 50 ml/min. Repeat BMP today. IV hydration Mikal night before cath recommended. Assessment & Plan (07/19/2021 7:59 AM LAND TITLE EXAMINER): Pt with CKDstage 3, CrCl 50 ml/min. Stable. IV hydration Mikal night before cath recommended. Assessment & Plan (07/18/2021 3:44 PM LAND TITLE EXAMINER): LINUS (Cr 1.59 on admission) on CKD (baseline Cr 1.0-1.2) -S/p 500 ml LR bolus in ED -Follow BMPs Statin intolerance 02/10/2021 4 Syncope and collapse 12/30/2020 024 Encounter for screening colonoscopy 10/14/2020 06/17/2023 Overview (10/14/2020): Added automatically from request for surgery [id number] Joint pain 02/28/2020 06/17/2023 Assessment & Plan (04/29/2020 10:45 AM LAND TITLE EXAMINER): Medrol dose pack Tramadol Q6 PRN (use, safety, s/e reviewed) Referral to Pain Management Assessment & Plan (02/28/2020 3:25 PM CDT): xrays noted, check rheum panel (? H/o pos JENNIFER) Confusion 01/04/2019 06/17/2023 Chest pain 01/15/2018 06/17/2023 Assessment & Plan (07/21/2021 9:47 AM LAND TITLE EXAMINER): CAD s/p CABG (2010), admitted with chest [...] for chest pain -Telemetry monitoring NPO for [facility] Assessment & Plan (01/16/2018 10:39 AM [...] 05/02/2021 How often do you attend [facility] or scientologist services? 1 to 4 times per year 05/02/2021 Do you belong to any clubs o r organizations such as sabianism groups, unions, fraternal or athletic groups, or [...] on file Legal Sex Male 11:34 PM LAND TITLE EXAMINER Gender Identity Not on file Sexual Orientation [...] A M CDT Height 180.3 cm (5' 11) 10/16/2024 8:53 AM CDT Body Mass Index 29.58 10/16/2024 8:53 AM CDT Plan of Treatment Not on file Goals Goal Patient Goal Type Associated Problems Recent Progress Patient-Stated? Author CCM Chronic Pain Care Plan Chronic Care Management No change(08/10 10:32 AM LAND TITLE EXAMINER) No Brissa Muse, RN Note: Problem: Chronic Pain Goals: 1. Minimize further functional decline 2. Maximize quality of life 3. Control pain Strategies: - Activity/exercise program recommendation - Conservative stepwise pain medicine strategy with multi-disciplinary approach - Recommend healthy lifestyle strategies and compensatory methods as needed Medical Devices Implanted Type Area Mobility Specialist Device Identifier Shelf Expiration Date Model / Serial / Lot Terumo [employer] Lewis Angio-Seal Vip 6fr Closere Device [id number] - [id number] - [id number] Implanted:Qty: 1 on 11/25/2022 by Eliecer Mixon MD at [facility] Collagen [employer] Lewis 06/13/2023 [id number] / [id number] / [id number] Terumo [employer] Lewis Angio-Seal Vip 6fr Closere Device [id number] - [id number] - [id number] Implanted:Qty: 1 on 10/16/2024 by Clifford Sandy MD at [facility] Collagen Left: Common Femoral Artery [employer]o [employer] Lewis 05/01/2025 [id number] / [id number] / [id number] Lead (Ra)-05/08/2015 Implanted:05/08/2015 by Maty Weber MD (Quantity not on file) Lead Heart Biotronik 350 974 SETROX S 53 / [id number] / Lead (Rv)-05/08/2015 Implanted:05/08/2015 by Maty Weber MD (Quantity not on file) Lead Heart Biotronik 350 975 SETROX S 60 / [id number] / Pacemaker-05/08/2015 Implanted:05/08/2015 by Maty Weber MD (Quantity not on file) Pacemaker Left: Chest Biotronik [id number] ELUNA 8 JOVANNI AGUILA / [id number] / Synthes 201.814 2mm 3.5mm 14mm Self Tap Cruciform Cortex Screw Bone Stainless - S0 - [id number] Implanted:Qty: 1 on 08/06/2020 by Zoey Sexton MD at [facility] Screw Synthes I 201.814 / 0 / Medtronic Card Vas Surgery 4.0 X 26mm [place] Rx Coronary Stent [id number] - [id number] - [id number] Implanted:Qty: 1 on 11/25/2022 by Clifford Sandy MD at [facility] Stent Medtronic Card Vasc Surgery 06/26/2025 [id number] / [id number] / [id number] Orthohelix [id number]-[id number] Maxtorque 4mm 32.5mm Cannulated Self Drill Foot Ankle Long Thread - [id number] Implanted:Qty: 1 on 06/28/2018 at [facility] Right: Foot Orthohelix MSD-010- 40-325L / / Orthohelix Poultry Helper-002-Pmx Ortholink 3 Hole [place] Foot Ankle Standard Plate Bone Nonsterile Latex Free - [id number] Implanted:Qty: 1 on 06/28/2018 at [facility] Right: Foot Orthohelix SIZING MACHINE TENDER-002- PMX / / Orthohelix [id number] Maxlock Extreme 4mm 16mm Nonlock Foot Ankle Screw Bone Nonsterile - [id number] Implanted:Qty: 1 on 06/28/2018 at [facility] Right: Foot Orthohelix SIZING MACHINE TENDER-011- 4016 / / Orthohelix [id number] Maxlock Extreme 4mm 18mm Nonlock Foot Ankle Screw Bone Nonsterile Latex Free - [id number] Implanted:Qty: 1 on 06/28/2018 at [facility] Right: Foot Orthohelix SIZING MACHINE TENDER-011- 40-18 / / Orthohelix [id number] Maxlock Extreme 4mm 14mm Nonlock Foot Ankle Screw Bone Nonsterile Latex Free - [id number] Implanted:Qty: 1 on 06/28/2018 at [facility] Right: Foot Orthohelix SIZING MACHINE TENDER-011- 4014 / / Daig Lewis[employer] [id number] Angio-Seal Evolution 6fr .035in Guidewire Bypass Tube Suture - [id number] Implanted:Qty: 1 on 11/22/2018 by Sarah Vasquez MD at [facility] Daig Lewis[employer] 08/12/2019 [id number] / / [id number] Medtronic Sofamor Danek [id number] Infuse 14mm 23mm Absorbable Sponge Sterile Water Syringe Needle - [id number] Implanted:Qty: 1 on 06/02/2019 by Zoey Sexton MD at [facility] Right: Foot Medtronic Inc 01/11/2021 [id number] / / [id number] Med[employer] Inc [id number] Plate Bone Medline Unite 0 D Medium Metatarsophalangeal Right Fusion Nonsterile - [id number] Implanted:Qty: 1 on 06/02/2019 by Zoey Sexton MD at [facility] Right: Foot [employer] [id number] / / [employer] Inc [id number] Pin Fixation Medline Unite L10mm Od1.1mm - [id number] Implanted:Qty: 1 on 06/02/2019 by Zoey Sexton MD at [facility] Right: Foot [employer] Inc [id number] / / [employer] Inc [id number] Screw Bone Medline Unite L34mm Od4.5mm Head Nonsterile - [id number] Implanted:Qty: 1 on 06/02/2019 by Zoey Sexton MD at [facility] Right: Foot [employer] [id number] / / [employer] [id number] Screw Bone Medline Unite L16mm Od3.5mm Foot Ankle Nonlock - [id number] Implanted:Qty: 1 on 06/02/2019 by Zoey Sexton MD at [facility] Right: Foot [employer] [id number] / / [employer] [id number] Screw Bone Medline Unite L18mm Od3.5mm Foot Ankle Nonlock - [id number] Implanted:Qty: 1 on 06/02/2019 by Zoey Sexton MD at [facility] Right: Foot [employer] [id number] / / [employer] [id number] Screw Bone Medline Unite L20mm Od3.5mm Foot Ankle Nonlock - [id number] Implanted:Qty: 2 on 06/02/2019 by Zoey Sexton MD at [facility] Right: Foot [employer] [id number] / / [employer] [employer] Triathlon Cruciate Retain Bead Knee Left 5 Component Femoral Pa 5517-F-501 - [id number] Implanted:Qty: 1 on 04/24/2024 by Zbigniew Noel MD at [facility] [employer] [id number] 02/27/2029 5517-F-5 01 / / [id number] [employer] Triathlon Knee 6 Baseplate Tibial Tritanium 5536-B-600 - [id number] Implanted:Qty: 1 on 04/24/2024 by Zbigniew Noel MD at [facility] [employer] [id number] 11/08/2028 5536-B-6 00 / / [id number] [employer] Insert Tibial Triathlon 6 H11mm Knee Bearing Condylar Stabilize Sterile 2462-N-923-E - [id number] Implanted:Qty: 1 on 04/24/2024 by Zbigniew Noel MD at [facility] [employer] [id number] 12/19/2028 5531-G-6 11-E / / [id number] Explanted Type Area Mobility Specialist Device Identifier Shelf Expiration Date Model / Serial / Lot [employer] [id number] Anne .45in 9in 1 [employer] Fixation - S0 - [id number] Explanted:Qty: 1 on 08/06/2020 by Zoey Sexton MD at [facility] Wire [employer] [id number] S / 0 / Description:Provisional fixa tion [employer] [id number] Anne .062in 9in 1 [employer] Wire Fixation - [id number] Explanted:Qty: 1 on 06/28/2018 at [facility] Right: Foot [employer] [id number] / / Description:Provisional fixa tion [employer] [id number] Anne .062in 9in 1 [employer] Sm[employer] Wire Fixation - [id number] Explanted:Qty: 1 on 06/28/2018 at [facility] Right: Foot [employer] [id number] / / Description:Provisional fixa tion [employer] 0584-1156 Anne .062in 9in 1 [employer] Sm[employer] Wire Fixation - [id number] Explanted:Qty: 1 on 06/28/2018 at [facility] Right: Foot [employer] [id number] / / Description:Provisional fixa tion Screw Explanted:Qty: 5 on 08/06/2020 by Zoey Sexton MD at [facility] Other / 0 / Plate Explanted:Qty: 1 on 08/06/2020 by Drew Espinosa MD at [facility] Other / 0 / Procedures Procedure Name Priority Date/Time Associated Diagnosis Comments SCAN - LABS 11/03/2024 4:59 PM CDT SCAN - LABS 11/02/2024 11:22 AM CDT SCAN - LABS 11/02/2024 SCAN - RADIOLOGY/IMAGING 10/31/2024 2:18 PM CDT EGFR Routine 10/18/2024 10:10 AM CDT High risk medications (not anticoagulants) long-term use BASIC METABOLIC PANEL Routine 10/18/2024 10:10 AM CDT High risk medications (not anticoagulants) long-term use POCT GLUCOSE DEVICE Routine 10/16/2024 3 :20 PM CDT CORONARY OCT, 1ST VESSEL Routine 10/16/2024 2:35 PM CDT Coronary artery disease involving barrow heart without angina pectoris, unspecified vessel or lesion type CORONARY FLOW VELOCITY (CFR) / INSTATANEOUS FLOW VELOCITY (IFR), 1ST VESSEL Routine 10/16/2024 2:35 PM CDT Coronary artery disease involving barrow heart without angina pectoris, unspecified vessel or lesion type RIGHT CORONARY ANGIOGRAPHY Routine 10/16/2024 2:35 PM CDT Coronary artery disease involving barrow heart without angina pectoris, unspecified vessel or [...] Routine) 10/04/2024 2:41 PM CDT Atherosclerosis of 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 PRO B-TYPE NATRIURETIC PEPTIDE Routine 10/03/2024 11:50 AM CDT Coronary artery disease involving barrow coronary artery of barrow heart without angina pectoris BASIC METABOLIC PANEL Routine 10/03/2024 11:50 AM CDT Coronary artery disease involving barrow coronary artery of barrow heart without angina pectoris CBC WITH AUTO DIFFERENTIAL Routine 10/03/2024 11:50 AM CDT Coronary artery disease involving barrow coronary artery of barrow heart without angina pectoris TRANSTHORACIC ECHO (TTE) COMPLETE W DOPPLER/CF W CONTRAST Routine 10/03/2024 10:29 AM CDT Cardiomyopathy, ischemic VL US ARTERIAL DUPLEX LOWER EXTREMITY BILATERAL Schedule Routine, Read Routine (OP Routine) 09/05/2024 10:30 AM CDT Atherosclerosis of 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 US SANTIAGO Schedule Routine, Read Routine (OP Routine) 09/05/2024 10:30 AM CDT Atherosclerosis of 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 US DUPLEX SCAN AORTA, IVC ILIAC COMPLETE Schedule Routine, Read Routine (OP Routine) 09/05/2024 10:30 AM CDT Atherosclerosis of 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 Other specified symptoms and signs involving the circulatory and respiratory systems POCT HEMOGLOBIN A1C Routine 09/04/2024 10:38 AM CDT Diabetes mellitus type II, non insulin dependent (HCC) PAIN MGMT IMAGING SHOULDER, HIP, KNEE JOINT/BURSA INJ BILATERAL Schedule Routine, Read Routine (OP Routine) 08/10/2024 11:30 AM LAND TITLE EXAMINER Greater trochanteric bursitis of both hips CTA ABDOMINAL AORTA AND BILATERAL ILIOFEMORAL RUNOFF Schedule Routine, Read Routine (OP Routine) 09/27/2023 11:27 AM CDT Claudication in peripheral vascular disease POCT LIPID PANEL Routine 09/21/2023 9:27 AM CDT Mixed hyperlipidemia PSA SCREEN Routine 06/17/2023 10:13 AM LAND TITLE EXAMINER Prostate cancer screening COLONOSCOPY 01/01/2021 12:16 PM CDT from Last 3 Months or Most Recently Relevant to Health Maintenance Results * SCAN - LABS (11/03/2024 4:59 PM CDT) us Perry Romero MD Final Result * SCAN - LABS (11/02/2024 11:22 AM CDT) us Perry Romero MD Final Result * SCAN - LABS (11/02/2024) us Provider Scanning Final Result * SCAN - RADIOLOGY/IMAGING (10/31/2024 2:18 PM [...] MD LAB BLOOD ORDERABLES F inal Result [facility] [address] [place] [address] * Basic metabolic panel (10/18/2024 10:10 AM CDT) Sodium 137 135 - 145 mmol/L Potassium, pl 4.3 3.3 - 4.9 mmol/L [facility] Chloride 101 97 - 110 mmol/L [facility] CO2 22 22 - 32 mmol/L [facility] Anion gap 14 2 - 15 mmol/L [facility] BUN 18 6 - 25 mg/dL [facility] Creatinine 1.14 0.80 - 1.30 mg/dL [facility] Glucose 130 70 - 199 mg/dL [facility] Comment: Interpretive Data Fasting glucose >/= 126 [...] LAB BLOOD ORDERABLES F inal Result [facility] [address] Department [place] [address] * POCT glucose (10/16/2024 3:20 PM CDT) Glucose, POC 95 70 - 199 mg/dL Blood 10/16/2024 3:20 PM CDT 10/16/2024 3:20 PM CDT Clifford Sandy MD LAB POCT ORDERABLES - DEVICE Final Result Performing Organization Address City/[facility]/ZIP Co de Phone Number [facility] [place] [address] * RIGHT CORONARY ANGIOGRAPHY, CORONARY FLOW VELOCITY [...] and OM2 Known atretic KAUR to LAD AUCTIONEER TOBACCO of the mid RCA THERAPEUTIC RECOMMENDATIONS: Left [...] result were not included. Cardiovascular Procedure Center [facility] [address], [address] [place], [place] [address] CORONARY AND GRAFT REPORT Patient: Vicky Youssef : 1955 MR number: [id number] Date of Service: 10/16/2024 Bottle Inspector: Clifford Sandy MD Fellow: Salvador Arita MD and Madalyn Reynaga MD Referring physician: Rigo Carroll MD INDICATION: worsening LV function, dyspnea PATIENT CLINICAL PROFILE: Vicky Youssef is a 69 y.o. male with a history of CABG s/p KAUR-LAD (atretic), SVG-Ramus/high OM, SVG-OM2, PCI to LM-LAD with a 4.0 mm Al Hickory SHEMAR, mild LV dysfunction, who is presenting with worsening LV dysfunction and some dyspnea on exertion. PROCEDURE: The risks, benefits and alternatives of the procedures and moderate sedation were explained to the patient and informed consent was obtained. The patient was brought to the labor training manager and placed on the table. Bilateral groins were prepped and draped in the usual sterile fashion. Ultrasound guidance was used to obtain access. I provided direct [id number] moderate conscious sedation which administered by independent [...] The RCA has slow flow and a AUCTIONEER TOBACCO in the mid segment which is unchanged [...] 231(H) 123 - 168 sec POC Performer [id number] [facility] POC Device Number [id number] [facility] Blood 10/16/2024 2:30 PM CDT 10/16/2024 2:30 PM CDT Clifford Sandy MD LAB POCT ORDERABLES - DEVICE Final Result Performing Organization Address City/[facility] Co de Phone Number [facility] Department [place] [address] * (ABNORMAL) POCT Activated clotting time, low range (10/16/2024 2:11 PM CDT) ACT 269(H) 123 - 168 sec POC Performer [id number] [facility] POC Device Number [id number] [facility] Blood 10/16/2024 2:11 PM CDT 10/16/2024 2:11 PM CDT Clifford Sandy MD LAB POCT ORDERABLES - DEVICE Final Result Performing Organization Address City/[facility]/ZIP Co de Phone Number [facility] Department [place] [address] * CBC without differential (10/16/2024 12:35 PM CDT) Pathologist [facility] WBC See Comment 3.80 - 9.90 Comment:Credited, specimen c lotted. Hgb See Comment 13.0 - 17.5 [facility] Comment:Credited, specimen c lotted. Hct See Comment 38.9 - 50.3 [facility] Comment:Credited, specimen c lotted. Plt See Comment 150 - 400 [facility] Comment:Credited, specimen c lotted. MPV See Comment 9.1 - 12.3 [facility] Comment:Credited, specimen c lotted. RBC See Comment 4.30 - 5.80 [facility] Comment:Credited, specimen c lotted. MCV See Comment 81.3 - 96.4 [facility] Comment:Credited, specimen c lotted. MCH See Comment 27.1 - 33.3 [facility] Comment:Credited, specimen c lotted. MCHC See Comment 32.3 - 35.7 [facility] Comment:Credited, specimen c lotted. RDW CV See Comment 11.1 - 14.9 [facility] Comment:Credited, specimen c lotted. RDW SD See Comment 35.7 - 48.1 [facility] Comment:Credited, specimen c lotted. NRBC abs See Comment 0.00 - 0.01 [facility] Comment:Credited, specimen c lotted. Blood 10/16/2024 12:3 5 PM CDT 10/16/2024 2:05 PM CDT Narrative [facility] - 10/16/2024 2:33 PM CDT To be drawn after hydration bolus complete Clifford Sandy MD LAB BLOOD ORDERABLES Final Result [facility] [place] [address] * POCT glucose (10/16/2024 9:19 AM CDT) [facility] Signature Glucose, POC 118 70 - 199 mg/dL Blood 10/16/2024 9:19 AM CDT 10/16/2024 9:19 AM CDT Clifford Sandy MD LAB POCT ORDERABLES - DEVICE Final Result Performing Organization Address City/[facility]/ZIP Co de Phone Number [facility] [place] [address] * ECG 12 lead (10/16/2024 8:32 AM CDT) [facility] Ventricular Rate EKG/Min 70 BPM [facility] Atrial Rate 70 BPM [facility] SC-Interval (MSEC) 304 ms [facility] QRS-Interval (MSEC) 132 ms [facility] QT-Interval (MSEC) 374 ms [facility] QTc 403 ms [facility] P [place] 2 degrees [facility] R [place] 1 degrees [facility] T [place] 252 degrees [facility] Diagnosis Atrial-paced rhythm with prolonged AV conduction Left ventricular hypertrophy with QRS widening and repolarization abnormality ( Sokolow-Pereira , Philip product ) Cannot rule out Septal infarct , age undetermined Abnormal ECG When compared with ECG of 25-NOV-2022 12:06, no significant change Confirmed by ERNESTINE TAVERAS M.D ([id number]) on 10/17/2024 3:04:55 PM [facility] 10/16/2024 8:32 AM CDT 10/17/2024 3:04 PM CDT Clifford Sandy MD ECG ORDERABLES Lilia l Result Performing Organization Address [facility] Co de Phone Number [facility] * DEVICE CHECK - REMOTE (10/08/2024 3:10 AM CDT) Anatomical Region Laterality Modality Other 10/08/2024 3:10 AM CDT Narrative 10/11/2024 11:10 AM CDT Interpretation Summary: Battery and Leads (BL) Normal parameters noted on battery and lead(s) --- 35% remaining longevity (implanted 2014). Lead impedance, sensing, and threshold trends stable and appropriate. Presenting Rhythm (SC) Atrial Pacing-Ventricular Pacing (AP-FANCY WIRE DRAWER) --- AP/FANCY WIRE DRAWER 70s. Arrhythmic events (AE) No new arrhythmic [...] and threshold trends stableand appropriate. Presenting Rhythm (SC) Atrial Pacing-Ventricular Pacing (AP-FANCY WIRE DRAWER) --- AP/FANCY WIRE DRAWER 70s. Arrhythmic events (AE) No new arrhythmic [...] Study Date: 10/04/2024 1:37:00 PM Gender: M Pinmaker: Leandra Frazier RN/RVT Ref Provider: IVET MONTANA Quality: Adequate Order Provider: IVET MONTANA PROCEDURES: Arterial Report: Bilateral lower extremity arterial Doppler exam at rest and with exercise. INDICATIONS: I70.213 Atherosclerosis of barrow arteries of extremities with intermittent claudication, bilateral legs. HISTORY: Claudication lower extremities L>R. HTN/HLD/DM/CAD/PREV SMOKER. COMPARISONS: The previous exam was completed on 09/05/2024. Compared to prior RT PT/DP .89/.53 LT PT/DP .92/.74. MEASUREMENTS: Right Value Left Value Rt Brachial Pressure 158 mmHg Lt Brachial Pressure 151 mmHg Rt CUSTOMER ACCOUNT ADMINISTRATOR Pressure 169 mmHg Lt CUSTOMER ACCOUNT ADMINISTRATOR Pressure 163 mmHg Rt DPA Pressure [...] Study Date: 10/04/2024 1:37:00 PM Gender: M Pinmaker: Leandra Frazier RN/RVT Ref Provider: IVET MONTANA Quality: Adequate Order Provider: IVET MONTANA PROCEDURES: Arterial Report: Bilateral lower extremity arterial Doppler exam at rest and withexercise. INDICATIONS: I70.213 Atherosclerosis of barrow arteries of extremities withintermittent claudication, bilateral legs. HISTORY: Claudication lower extremities L>R. HTN/HLD/DM/CAD/PREV SMOKER. COMPARISONS: The previous exam was completed on 09/05/2024. Compared to prior RT PT/DP .89/.53 LT PT/DP .92/.74. MEASUREMENTS: Right Value Left Value Rt Brachial Pressure 158 mmHg Lt Brachial Pressure 151 mmHg Rt CUSTOMER ACCOUNT ADMINISTRATOR Pressure 169 mmHg Lt CUSTOMER ACCOUNT ADMINISTRATOR Pressure 163 mmHg Rt DPA Pressure [...] Ivet Montana MD 10/05/2024 1:31:20 PM CDT Ivet Montana MD [facility] US PROCEDURES Final Result * Pro B-type [...] as advanced age. - References: 1. Mellissa JL et.al. Eur Heart J. 2006:27:330-337. 2. Lexus RW, Cleo NAVARRO. J. AM Wilver Cardiol: Cardiovasc Imag. 2009;2: 216- 225. Interpretive Data Last Revised Date: 2018. Blood 10/03/2024 11:5 0 AM CDT 10/03/2024 1:23 PM CDT us Rigo Carroll MD LAB BLOOD ORDERABLES F inal Result [facility] [place] [address] * CBC with auto differential (10/03/2024 11:50 [...] MD LAB BLOOD ORDERABLES F inal Result Performing Organization Address City/[facility] Co de Phone Number [facility] * Basic metabolic panel (10/03/2024 11:50 AM CDT) Glucose 97 64 - 99 mg/dL [facility] [...] MD LAB BLOOD ORDERABLES F inal Result Performing Organization Address City/[facility] Co de Phone Number [facility] * TRANSTHORACIC ECHO (TTE) COMPLETE W DOPPLER/CF W CONTRAST (10/03/2024 10:29 AM CDT) Anatomical Region Laterality Modality Ultrasound 10/03/2024 9:38 AM CDT Narrative 10/03/2024 11:12 AM CDT [facility] [place] [address] Transthoracic Echocardiographic Report Patient Name: VICKY YOUSSEF D : 1955 (69y 6m) Gender: M Study Date: 10/03/2024 09:38:56 AM Ht(Inch): 71 Wt(Lb): 210.98 BSA: 2.19 Pinmaker: Soco Marcano RDCS Location: [facility] Order Provider: RIGO CARROLL Heart Rate: [...] LA Length 4C 5.23 cm AI Decel [place] 2.86 m/s2 LA Length 2C 4.36 cm [...] Procedure Note Rigo Carroll MD - 10/03/2024 [facility] [place] [address] Transthoracic Echocardiographic Report Patient Name: VICKY YOUSSEF D : 1955 (69y 6m) Gender: M Study Date: 10/03/2024 09:38:56 AM Ht(Inch): 71 Wt(Lb): 210.98 BSA: 2.19 Pinmaker: Soco Marcano RDCS Location: [facility] Order Provider:RIGO CARROLL Heart Rate: 70 [...] [ -25.0 - -18.0 ] AI Decel Vylb9372.25 sec LA Length 4C 5.23 cm AI Decel [place]2.86 m/s2 LA Length 2C 4.36 cm AI DMW194.99 msec LA Volume BP 50.69 ml Lat E` Vel4.0 cm/sec [ 10.0 - 25.0 ] LA Volume Index 23.15 ml/m2 [ 16.00 - 34.00 ] RV S`7.62 cm/sec RV Base Dimen 2D 3.9 cm [ 2.5 - 4.2 ] PV Peak Vel0.8 m/s [ 0.4 - 0.8 ] TAPSE 0.94 cm [ 1.71 - 5.00 ] PV Peak PG2.56 mmHg RA Srawug72.65 ml RA Volume Index17.19 ml/m2 IVC Diam1.47 [...] PM CDT [facility] [address] [place] [address] Lower Extremity Arterial Duplex Report Patient Name: VICKY YOUSSEF D : 1955 (69y 5m) Gender: M Study Date: 09/05/2024 09:33:41 AM Ht(Inch): Wt(Lb): BSA: Pinmaker: Location: [facility] Order Provider: IVET MONTANA Quality: Adequate Ref Provider: IVET MONTANA PROCEDURES: Arterial Report: A non-invasive vascular imaging study of the bilateral lower extremity arteries was performed using B-mode ultrasound, color flow, and spectral Doppler. INDICATIONS: R>L claudication, remote hx BCIA stents. HISTORY: HTN. HLD. DM. CAD-IN S/P stent/CABG. Afib. Pacemaker. Former smoker. COMPARISONS: Prior CTA on 09/27/23. MEASUREMENTS: Right Value Left Value Rt MERCANTILE REPORTER Dst PSV 77.00 cm/sec Lt MERCANTILE REPORTER Dst PSV 87.00 cm/sec Rt Profunda Prx [...] - 09/06/2024 [facility] [address] [place] [address] Lower Extremity Arterial Duplex Report Patient Name: VICKY YOUSSEF D : 1955 (69y 5m) Gender: M Study Date: 09/05/2024 09:33:41 AM Ht(Inch): Wt(Lb): BSA: Pinmaker: Location: [facility] Order Provider: IVET MONTANA Quality: Adequate Ref Provider: IVET MONTANA PROCEDURES: Arterial Report: A non-invasive vascular imaging study of the bilaterallower extremity arteries was performed using B-mode ultrasound, color flow, and spectralDoppler. INDICATIONS: R>L claudication, remote hx BCIA stents. HISTORY: HTN. HLD. DM. CAD-IN S/P stent/CABG. Afib. Pacemaker. Former smoker. COMPARISONS: Prior CTA on 09/27/23. MEASUREMENTS: Right Value Left Value Rt MERCANTILE REPORTER Dst PSV 77.00 cm/sec Lt MERCANTILE REPORTER Dst PSV 87.00 cm/sec Rt Profunda Prx [...] 2:37 PM CDT [facility] [place] [address] Lower Extremity Arterial Doppler Report Patient Name: VICKY YOUSSEFGriselda : 1955 Study Date: 09/05/2024 8:50:00 AM Gender: M Pinmaker: Maureen Vásquez RVT Location: [facility] Ref Provider: IVET MONTANA Quality: Adequate Order Provider: IVET MONTANA PROCEDURES: Arterial Report: Ankle - Brachial Index Doppler exam. INDICATIONS: Remote hx BCIA stents; R>L claudication. HISTORY: HTN. HLD. DM. CAD-IN S/P stent/CABG. Afib. Pacemaker. Former smoker. COMPARISONS: The previous exam was completed on 11/19/23. Compared to prior there is disease progression at bilateral dorsalis pedis arteries. MEASUREMENTS: Right Value Left Value Rt Brachial Pressure 159 mmHg Lt Brachial Pressure 146 mmHg Rt CUSTOMER ACCOUNT ADMINISTRATOR Pressure 142 mmHg Lt CUSTOMER ACCOUNT ADMINISTRATOR Pressure 147 mmHg Rt DPA Pressure [...] [facility] [address] [address] Lower Extremity Arterial Doppler Report Patient Name: VICKY YOUSSEF D : 1955 Study Date: 09/05/2024 8:50:00 AM Gender: M Pinmaker: Maureen Vásquez RVNancy Location: [facility] Ref Provider: IVET MONTANA Quality: Adequate Order Provider: IVET MONTANA PROCEDURES: Arterial Report: Ankle - Brachial Index Doppler exam. INDICATIONS: Remote hx BCIA stents; R>L claudication. HISTORY: HTN. HLD. DM. CAD-IN S/P stent/CABG. Afib. Pacemaker. Former smoker. COMPARISONS: The previous exam was completed on 11/19/23. Compared to prior there is disease progression at bilateral dorsalis pedisarteries. MEASUREMENTS: Right Value Left Value Rt Brachial Pressure 159 mmHg Lt Brachial Pressure 146 mmHg Rt CUSTOMER ACCOUNT ADMINISTRATOR Pressure 142 mmHg Lt CUSTOMER ACCOUNT ADMINISTRATOR Pressure 147 mmHg Rt DPA Pressure [...] 2:37 PM CDT [facility] [address] [place] [address] Abdominal Aortic Duplex Ultrasound Report Patient Name: VICKY YOUSSEF Griselda : 1955 Study Date: 09/05/2024 8:52:47 AM Gender: M Pinmaker: CORI Location: [facility] Ref Provider: IVET MONTANA Quality: Adequate Order [...] - 09/06/2024 [facility] [address] [facility] [place] [address] Abdominal Aortic Duplex Ultrasound Report Patient Name: VICKY YOUSSEF D : 1955 Study Date: 09/05/2024 8:52:47 AM Gender: M Pinmaker: Location: [facility] Provider: IVET MONTANA Quality: Adequate Order [...] 09/06/2024 1:47:06 PM CDT Ivet Montana MD IM US PROCEDURES Final Result * (ABNORMAL) POCT hemoglobin A1c (09/04/2024 10:38 AM CDT) Hemoglobin A1C, POC 6.4 4.0 - 5.6 % Blood 09/04/2024 10:3 8 AM CDT Perry Romero MD POINT OF CARE TEST ORDERABLES Final Result * Imaging Shoulder, Hip, Knee Joint/Bursa INJ INJ Bilateral () (08/10/2024 11:30 AM LAND TITLE EXAMINER) Narrative RAD_PACS_[facility] - 08/10/2024 11:30 AM LAND TITLE EXAMINER The images from this study are not [...] Result * PSA screen (06/17/2023 10:13 AM LAND TITLE EXAMINER) PSA 0.4 0.0 - 4.0 ng/mL [facility] - 01 Comment: Shahbaz ECLIA methodology. According to the [employer], Serum PSA should decrease and [...] malignant disease. Blood 06/17/2023 10:1 3 AM LAND TITLE EXAMINER 06/17/2023 Narrative [facility] - 06/18/2023 6:11 AM LAND TITLE EXAMINER Performed at: - [facility] [id number] City Secretary: Edgar Menard PhD, Phone: [phone] Mamie Rose PROTECTION ENGINEER LAB BLOOD ORDERABLES Fin al Result [facility] 01 * COLONOSCOPY (01/01/2021 12:16 PM CDT) Anatomical Region Laterality Modality Other Narrative Procedure Note Emily Zeng MD - 01/01/2021 12:16 PM CDT [facility] Patient Name: Vicky Youssef Procedure Date: 01/01/2021 12:16 PM Date of : 1955 Admit Type: Outpatient Age: 65 Gender: Male Attending MD: Huy Reed Room: [facility] ENDOSCOPY ROOM 3 Note Status: [...] bowel preparation was evaluated using the BBPS ([place] Bowel Preparation Scale) with scores of:Right Colon [...] On: 01/01/2021 12:16 PM Recognized by the [place] [employer] for promoting quality in endoscopy Emily Zeng MD ENDOSCOPY PROCEDUR ES Final Result from Last 3 Months or Most Recently Relevant to Health Maintenance Insurance MEDICARE BLUE [employer]OSS MEDICARE SUPPLEMENT MEDICARE [facility] MEDICARE MEDICARE Member Subscriber Plan / Payer (Ef fective 2005-Present) Name:Vicky Youssef Member ID:[id number] Relation to Subscriber:Self Name:Vicky Youssef Subscriber ID:[id number] Payer ID:[id number] Group ID:Not on file Type:MEDICARE TRADITIONAL Address: [place] [id number] BLUE CROSS MEDICARE SUPPLEMENT MEDICARE [employer] MEDICARE SUPPLEMENT MEDICARE [facility] MEDICARE SUPPLEMENT Advance Directives For more information, please contact: [phone] * Full Code (Latest Code Status on [...] 4:34 PM 05/02/2021 4:45 PM Care Teams Phys Therapist Relationship Specialty Start Date End Date Perry Romero MD PCP - General Internal Medicine 02/23/20 Rigo Carroll MD [facility] 05/23/19 Love Jones, PT Physical Therapist Physical Therapy 09/28/22 Arthur Bateman MD [address] [address] Referring Physician Anesthesiology 09/28/22 Karl Cha MD [facility] [place] [id number] Referring Physician Orthopedic Surgery 11/24/23
--- OUTSIDE RECORDS SUMMARY | 2024-11-07 16:02 | XMS_ITS | Clinical Summary ---
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 90 tablet 3 Active clopidogreL [...] total) by mouth daily 30 tablet 11 Active amLODIPine (NORVASC) 2.5 mg tablet TAKE [...] 06/17/2023 Assessment & Plan (06/17/2023 10:00 AM NEW AUTOS DELIVERY DRIVER): Continue flexeril 10mg Q8 PRN Trial gabapentin 100mg Q8 TID Topical lidocaine patches 4%, on for 12 hours/off for 12 hours Will send [place] 5/325 PRN #28, discussed that this will [...] 07/21/2021 Assessment & Plan (07/21/2021 9:52 AM NEW AUTOS DELIVERY DRIVER): Baseline creatine 1.3-1.5 Creatine Within patient;s baseline at 1.3 CTM Received IV fluids 500 ml on admission for creatine 1.59 Statin intolerance 07/18/2021 Assessment & Plan (07/18/2021 3:39 PM NEW AUTOS DELIVERY DRIVER): History of statin intolerance -Continue ezetimibe and fenofibrate DM2 (diabetes mellitus, type 2) 07/18/2021 Assessment & Plan (07/19/2021 7:58 AM NEW AUTOS DELIVERY DRIVER): Follow glucose and rx with insulin Metformin held for now pending cath. Assessment & Plan (07/18/2021 3:41 PM NEW AUTOS DELIVERY DRIVER): -Hemoglobin A1c 6.1 -Hold home metformin while inpatient -SSI while admitted -Carb consistent diet -Accuchecks BPH (benign prostatic hyperplasia) 07/18/2021 Assessment & Plan (07/18/2021 3:59 PM NEW AUTOS DELIVERY DRIVER): BPH s/p TURP -Continue home finasteride and tamsulosin HLD (hyperlipidemia) 07/18/2021 Assessment & Plan (10/11/2024 11:06 AM CDT): Recommend statin therapy. Assessment & Plan (09/15/2024 10:52 AM CDT): Stable continue Zetia Assessment & Plan (08/31/2024 1:57 PM CDT): Impression: Chronic stable. Plan: Continue Zetia, fenofibrate Assessment & Plan (07/21/2021 8:10 AM NEW AUTOS DELIVERY DRIVER): LDL ok while on non-statins due to intolerance. Continue present Rx for now Assessment & Plan (07/20/2021 8:10 AM NEW AUTOS DELIVERY DRIVER): LDL ok while on non-statins due to intolerance. Continue present Rx for now Assessment & Plan (07/19/2021 7:57 AM NEW AUTOS DELIVERY DRIVER): LDL ok while on non-statins due to intolerance. Continue present Rx for now Assessment & Plan (07/18/2021 3:52 PM NEW AUTOS DELIVERY DRIVER): Lipid panel WNL -Continue ezetimibe and fenofibrate [...] 07/18/19 Assessment & Plan (07/18/2021 4:00 PM NEW AUTOS DELIVERY DRIVER): PVOD s/p bilateral iliac stents Unstable angina 07/18/2021 Overview (07/18/2021): Added automatically from request for surgery [id number] Assessment & Plan (07/21/2021 8:10 AM NEW AUTOS DELIVERY DRIVER): CP concerning for [place]. troponins normal, ruled out for AL. I have recommended coronary angiography and this is scheduled for today. Pt has PAD Continue IV heparin, follow labs and adjust. Continue aspirin, plavix, beta carrie, Patient asymptomatic. Cardiac catheterization scheduled for tomorrow. NPO after midnight. Assessment & Plan (07/20/2021 8:10 AM NEW AUTOS DELIVERY DRIVER): CP concerning for USA. troponins normal, ruled out for AL. I have recommended coronary angiography and this is scheduled for Wednesday. Pt has PAD and radial approach may be preferred. Continue IV heparin, follow labs and adjust. Continue aspirin, plavix, beta carrie, Patient asymptomatic. Cardiac catheterization scheduled for tomorrow. NPO after midnight. Assessment & Plan (07/19/2021 7:56 AM NEW AUTOS DELIVERY DRIVER): CP concerning for [place]. troponins normal, ruled out for AL. Brief left sided chest pain since admission. [...] (03/06/2021): Added automatically from request for surgery [id number] Presbyopia 02/03/2021 Assessment & Plan (08/12/2023 5:06 PM NEW AUTOS DELIVERY DRIVER): -Noting increased difficulty with near vision while reading -Recommended trialing higher power reading glasses Assessment & Plan (02/03/2021 2:44 PM CDT): Correctable to 20/25 right eye (OD) and left eye (OS). Update specs as desired. Rosacea 09/18/2020 Metatarsalgia of right foot 07/04/2020 Overview (07/04/2020): Added automatically from request for surgery [id number] Sesamoiditis 07/04/2020 Overview (07/04/2020): Added automatically from request for surgery [id number] Painful orthopaedic hardware 07/04/2020 Overview (07/04/2020): Added automatically from request for surgery [id number] Achilles tendon contracture, right 07/04/2020 Overview (07/04/2020): Added automatically from request for surgery [id number] Pseudarthrosis after fusion or arthrodesis 02/28 Overview (02/28/2019): Added automatically from request for surgery [id number] Diabetes mellitus type 2 without retinopathy 05/2019 Assessment & Plan (02/09/2023 3:33 PM CDT): Continue strict BS control, annual dilated eye exams. Assessment & Plan (06/17/2022 4:09 PM NEW AUTOS DELIVERY DRIVER): Continue strict BS control, annual dilated eye [...] months Assessment & Plan (08/12/2023 5:05 PM NEW AUTOS DELIVERY DRIVER): -Follow up exam for AMD; last visit [...] 6months Assessment & Plan (06/17/2022 9:41 AM NEW AUTOS DELIVERY DRIVER): -No signs of exudation. -given the large [...] months Assessment & Plan (08/13/2021 3:12 PM NEW AUTOS DELIVERY DRIVER): No signs of exudation. Per AREDS study, [...] follow. Assessment & Plan (06/17/2022 4:09 PM NEW AUTOS DELIVERY DRIVER): NVS, follow. Assessment & Plan (02/23/2019 10:32 [...] (06/08/2018): Added automatically from request for surgery [id number] Palpitations 04/15/2018 CAD (coronary artery disease) 03/08/2018 Assessment & Plan (09/04/2024 11:21 AM CDT): stable Assessment & Plan (07/18/2021 3:42 PM NEW AUTOS DELIVERY DRIVER): CAD s/p CABG in 2010 (KAUR-LAD which [...] Diabetes mellitus type II, non insulin dependent ([facility]) 01/15/2018 Assessment & Plan (09/04/2024 11:21 AM CDT): Stable and doing well Assessment & Plan (07/21/2021 9:50 AM NEW AUTOS DELIVERY DRIVER): Hemoglobin a1c 6.1 - diet controlled for now Metformin on hold for [facility] Continue to monitor. Assessment & Plan (07/20/2021 8:11 AM NEW AUTOS DELIVERY DRIVER): Blood sugar stable. Follow-up blood sugar. Treat with insulin as appropriate Metformin being held. Assessment & Plan (02/28/2020 3:23 PM CDT): a1c at target, recommend annual eye exam. Feet are without lesions. 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 Continue beta-carrie. Assessment & Plan (07/20/2021 8:10 AM NEW AUTOS DELIVERY DRIVER): Pacer function stable Continue present Rx. Continue beta-carrie. 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 Maty Weber Assessment & Plan (02/28/2020 3:23 PM CDT): No palpitations, syncope Depressive disorder 03/15/2015 Panic disorder without agoraphobia 03/15/2015 Resolved Problems Problem Noted Date Diagnosed Date Resolved Date Pain in right foot 04/24/2022 4 LINUS (acute kidney injury) 07/18/2021 Assessment & Plan (07/21/2021 8:12 AM NEW AUTOS DELIVERY DRIVER): Pt with CKDstage 3, CrCl 50 ml/min. Creatinine improved. Cath today Assessment & Plan (07/20/2021 8:11 AM NEW AUTOS DELIVERY DRIVER): Pt with CKDstage 3, CrCl 50 ml/min. Repeat BMP today. IV hydration Mikal night before cath recommended. Assessment & Plan (07/19/2021 7:59 AM NEW AUTOS DELIVERY DRIVER): Pt with CKDstage 3, CrCl 50 ml/min. Stable. IV hydration Mikal night before cath recommended. Assessment & Plan (07/18/2021 3:44 PM NEW AUTOS DELIVERY DRIVER): LINUS (Cr 1.59 on admission) on CKD (baseline Cr 1.0-1.2) -S/p 500 ml LR bolus in ED -Follow BMPs Statin intolerance 02/10/2021 4 Syncope and collapse 12/30/2020 024 Encounter for screening colonoscopy 10/14/2020 06/17/2023 Overview (10/14/2020): Added automatically from request for surgery [id number] Joint pain 02/28/2020 06/17/2023 Assessment & Plan (04/29/2020 10:45 AM NEW AUTOS DELIVERY DRIVER): Medrol dose pack Tramadol Q6 PRN (use, safety, s/e reviewed) Referral to Pain Management Assessment & Plan (02/28/2020 3:25 PM CDT): xrays noted, check rheum panel (? H/o pos JENNIFER) Confusion 01/04/2019 06/17/2023 Chest pain 01/15/2018 06/17/2023 Assessment & Plan (07/21/2021 9:47 AM NEW AUTOS DELIVERY DRIVER): CAD s/p CABG (2010), admitted with chest [...] for chest pain -Telemetry monitoring NPO for [facility] Assessment & Plan (01/16/2018 10:39 AM [...] Department Care Team Description 11/03/2024 Orders Only [facility] [address] [place] [address] [address] [place] [address] Perry Romero MD 11/02/2024 Orders Only [facility] Scanning, Provider 11/02/2024 Orders Only [facility] [address] [place] [address] [address] [place] [address] Perry Romero MD 11/01/2024 Telephone [facility] [address] [place] [address] for Advanced Medicine 8th [place] [address] [place] [phone] Rigo Carroll MD 10/31/2024 Orders Only [facility] [address] [place] [address] [address] [place] [address] Perry Romero MD 10/25/2024 1:00 PM CDT Office Visit [facility] [address] [facility] 6th [place] [address] [place] [address] Sudhir Martinez MD Greater trochanteric pain syndrome of right lower extremity (Primary Dx); Chronic right hip pain; Chronic knee pain after total replacement of left knee joint 10/23/2024 Telephone [facility] [facility] 8th [place] [address] [place] [address] Rigo Carroll MD BP updates 10/18/2024 10:15 AM CDT Lab [facility] Medical Group Outpatient Lab at [address] [address] Diabetes mellitus type 2 without retinopathy (HCC) (Primary Dx); High risk medications (not anticoagulants) long-term use 10/18/2024 10:10 AM CDT - 10/18/2024 11:59 PM CDT Hospital Encounter [address] [address] High risk medications (not anticoagulants) long-term use Discharge Disposition: Discharge to home or self care 10/18/2024 Results Follow-Up [facility] [address] [place] [address] 8th [place] [address] [place] [address] Rigo Carroll MD Basic metabolic panel, eGFR 10/16/2024 10:45 AM CDT - 10/16/2024 12:25 PM CDT Surgery [facility] [address] [place] [phone] Clifford Sandy MD CORONARY ARTERY AND GRAFT ANGIOGRAPHY [address] 10/16/2024 8:28 AM CDT - 10/16/2024 5:00 PM CDT Hospital Encounter [facility] Vascular [address] [address] Clifford Sandy MD Coronary artery disease involving [place] heart without angina pectoris, unspecified vessel or lesion type Discharge Disposition: Discharge to home or self care 10/16/2024 Results Follow-Up [facility] [address] [place] [address] 8th [place] [address] [place] [address] Rigo Carroll MD Cardiac Catheterization 10/11/2024 8:45 AM CDT Office Visit [facility] Medical Group Vascular at [address] [place] [phone] Ivet Montana MD Peripheral vascular disease (Primary Dx); Primary hypertension; Mixed hyperlipidemia 10/11/2024 Orders Only [facility] Health Information Management [address] [place] [address] Scanning, Provider 10/11/2024 Orders Only [facility] Medical [facility] Vascular at [address] [place] [address] Ivet Montana MD Atherosclerosis of [place] artery of both lower extremities with intermittent claudication (Primary Dx); Other specified symptoms and signs involving the circulatory and respiratory systems 10/05/2024 10:00 AM CDT Office Visit [facility] [address] [place] [phone] Sherri Jean-Baptiste MD 10/05/2024 Telephone [facility] [address] [place] [address] [place] [address] Rigo Carroll MD follow up of previous orders 10/04/2024 1:17 PM CDT - 10/04/2024 11:59 PM CDT Hospital Encounter [facility] Medical Office Building [address] [place] [address] Atherosclerosis of [place] artery of both lower extremities with intermittent claudication Discharge Disposition: Discharge to home or self care 10/03/2024 11:50 AM CDT - 10/03/2024 11:59 PM CDT Hospital Encounter [facility] [address] [place] [address] Coronary artery disease involving [place] coronary artery of [place] heart without angina pectoris Discharge Disposition: Discharge to home or self care 10/03/2024 11:45 AM CDT Lab [facility] Metabolism and Lipid [address] [facility] 8th [place] [address] [place] [phone] Coronary artery disease involving [place] coronary artery of [place] heart without angina pectoris 10/03/2024 10:30 AM CDT Office Visit [facility] [address] [place] [address] 8th [place] [address] [place] [address] Rigo Carroll MD Coronary artery disease involving [place] coronary artery of [place] heart without angina pectoris (Primary Dx); Primary hypertension; Pure hypercholesterolemia; Peripheral vascular disease; Presence of cardiac pacemaker 10/03/2024 9:15 AM CDT - 10/03/2024 11:59 PM CDT Hospital Encounter [facility] Diagnostic Lab [address] [place] [phone] Cardiomyopathy, ischemic Discharge Disposition: Discharge to home or self care 10/03/2024 Results Follow-Up [facility] [address] [place] [address] [place] [address] Rigo Carroll MD Pro B-type natriuretic peptide 10/03/2024 Results Follow-Up [facility] [address] [place] [address] [place] [address] [place] [address] Rigo Carroll MD CBC with auto differential, Basic metabolic panel 10/03/2024 Telephone [facility] [address] [place] [address] [place] [address] [place] [address] Rigo Carroll MD Cath orders 09/13/2024 8:30 AM CDT Office Visit [facility] Medical Group Vascular at [address] [place] [phone] Ivet Montana MD Peripheral vascular disease (Primary Dx); Mixed hyperlipidemia; Primary hypertension 09/13/2024 Orders Only [facility] Vascular at [address] [place] [phone] Ivet Montana MD Atherosclerosis of [place] artery of both lower extremities with intermittent claudication (Primary Dx) 09/05/2024 10:00 AM CDT Ancillary Procedure [facility] Group Vascular and Vein Surgery at [address] [place] [phone] Atherosclerosis of [place] artery of both lower extremities with intermittent claudication 09/05/2024 10:00 AM CDT Ancillary Procedure [facility] Vascular and Vein Surgery at [address] [place] [phone] Atherosclerosis of [place] artery of both lower extremities with intermittent claudication 09/05/2024 9:00 AM CDT Ancillary Procedure [facility] Vascular and Vein Surgery at [address] [place] [phone] Atherosclerosis of [place] artery of both lower extremities with intermittent claudication; Other specified symptoms and signs involving the circulatory and respiratory systems 09/04/2024 10:30 AM CDT Office Visit [facility] [address] [place] [phone] Perry Romero MD Diabetes mellitus type II, non insulin dependent (HCC) (Primary Dx); Sick sinus syndrome (CMS/HCC) (HCC); Primary hypertension; Coronary artery disease involving [place] heart without angina pectoris, unspecified vessel or lesion type 08/30/2024 9:15 AM CDT Office Visit [facility] Medical Group Vascular at [address] [phone] Rosana Fink NP Peripheral vascular disease (Primary Dx); Mixed hyperlipidemia; Primary hypertension 08/30/2024 Orders Only [facility] Group Vascular at [address] [address] Ivet Montana MD Atherosclerosis of [place] artery of both lower extremities with intermittent claudication (Primary Dx); Other specified symptoms and signs involving the circulatory and respiratory systems 08/10/2024 10:15 AM NEW AUTOS DELIVERY DRIVER - 08/10/2024 11:59 PM NEW AUTOS DELIVERY DRIVER Hospital Encounter [facility] at the [address] [address] Arthur Bateman MD Greater trochanteric bursitis of [...] 06/13/2003 triple bypass CARDIAC CATHETERIZATION 11/22/2018 positive AL FOOT SURGERY 06/28/2018 Right right 1st MTP [...] N/A Procedure: CORONARY ARTERY AND GRAFT ANGIOGRAPHY [id number]; Surgeon: Clifford Sandy MD; Location: [facility] CARDIAC FLIGHT OPERATIONS INSPECTOR; Service: Cardiovascular; Laterality: N/A; eval ffor ischemia, hx icm CABG 2002 [facility], most recent cath at [facility] [address] Sandy Pt has pacemaker-Dr. Weber DM-on Metformin, will instruct pt to hold night prior and day of Labs done 10/03/2024, in chart Pt will be Medical devices from this surgery are in the Medical Devices section. CARDIAC CATHETERIZATION 10/16/2024 N/A Procedure: Coronary Flow Velocity (CFR) / Instantaneous Flow Velocity (IFR), 1st Vessel; Surgeon: Clifford Sandy MD; Location: [facility] CARDIAC FLIGHT OPERATIONS INSPECTOR; Service: Cardiovascular; Laterality: N/A; Medical devices from this surgery are in the Medical Devices section. CARDIAC CATHETERIZATION 10/16/2024 N/A Procedure: IVUS/OCT CORS OR GRAFTS, FIRST VESSEL (+) [id number]; Surgeon: Clifford Sandy MD; Location: [facility] CARDIAC FLIGHT OPERATIONS INSPECTOR; Service: Cardiovascular; Laterality: N/A; Medical devices from [...] Smoking Tobacco: Former Cigarettes 1 28 1 2002 Smokeless Tobacco: Never Tobacco Cessation:Counseling Given: [...] often do you attend chur ch or episcopal services? 1 to 4 times per year [...] on file Legal Sex Male 11:34 PM NEW AUTOS DELIVERY DRIVER Gender Identity Not on file Sexual Orientation [...] Chronic Care Management No change(08/10 10:32 AM NEW AUTOS DELIVERY DRIVER) No Brissa Muse RN Note: Problem: Chronic Pain Goals: 1. Minimize further functional decline 2. Maximize quality of life 3. Control pain Strategies: - Activity/exercise program recommendation - Conservative stepwise pain medicine strategy with multi-disciplinary approach - Recommend healthy lifestyle strategies and compensatory methods as needed Medical Devices Implanted Type Area Tissue Rewinder Device Identifier Shelf Expiration Date Model / Serial / Lot TerLiveDeal Angio-Seal Vip 6fr Closere Device [id number] - [id number] - [id number] Implanted:Qty: 1 on 11/25/2022 by Eliecer Mixon MD at [facility] Collagen Ter[employer]o [employer] Lewis 06/13/2023 [id number] / [id number] / [id number] [employer] Angio-Seal Vip 6fr Closere Device [id number] - [id number] - [id number] Implanted:Qty: 1 on 10/16/2024 by Clifford Sandy MD at [facility] Collagen Left: Common Femoral Artery [employer] 05/01/2025 [id number] / [id number] / [id number] Lead (Ra)-05/08/2015 Implanted:05/08/2015 by Maty Weber MD (Quantity not on file) Lead Heart Biotronik 350 974 SETROX S 53 / [id number] / Lead (Rv)-05/08/2015 Implanted:05/08/2015 by Maty Weber MD (Quantity not on file) Lead Heart Biotronik 350 975 SETROX S 60 / [id number] / Pacemaker-05/08/2015 Implanted:05/08/2015 by Maty Weber MD (Quantity not on file) Pacemaker Left: Chest Biotronik 996367 SANDRAUNA 8 JOVANNI AGUILA / [id number] / Synthes 201.814 2mm 3.5mm 14mm Self Tap Cruciform Cortex Screw Bone Stainless - S0 - [id number] Implanted:Qty: 1 on 08/06/2020 by Zoey Sexton MD at [facility] Screw Synthes I 201.814 / 0 / Medtronic Card Vas Surgery 4.0 X 26mm [place] Rx Coronary Stent [id number] - [id number] - [id number] Implanted:Qty: 1 on 11/25/2022 by Clifford Sandy MD at [facility] Stent Medtronic Card Vasc Surgery 06/26/2025 [id number] / [id number] / [id number] Orthohelix Hal-073-53-325l Maxtorque 4mm 32.5mm Cannulated Self Drill Foot Ankle Long Thread - [id number] Implanted:Qty: 1 on 06/28/2018 at [facility] Right: Foot Orthohelix MSD-010- 40-325L / / Orthohelix Amortization Clerk-002-Pmx Ortholink 3 Hole Snyder Foot Ankle Standard Plate Bone Nonsterile Latex Free - [id number] Implanted:Qty: 1 on 06/28/2018 at [facility] Right: Foot Orthohelix ADMISSIONS COORDINATOR-002- PMX / / Orthohelix [id number] Maxlock Extreme 4mm 16mm Nonlock Foot Ankle Screw Bone Nonsterile - [id number] Implanted:Qty: 1 on 06/28/2018 at [facility] Right: Foot Orthohelix ADMISSIONS COORDINATOR-011- 4016 / / Orthohelix Fmt-[id number] Maxlock Extreme 4mm 18mm Nonlock Foot Ankle Screw Bone Nonsterile Latex Free - [id number] Implanted:Qty: 1 on 06/28/2018 at [facility] Right: Foot Orthohelix ADMISSIONS COORDINATOR-011- 40-18 / / Orthohelix [id number] Maxlock Extreme 4mm 14mm Nonlock Foot Ankle Screw Bone Nonsterile Latex Free - [id number] Implanted:Qty: 1 on 06/28/2018 at [facility] Right: Foot Orthohelix ADMISSIONS COORDINATOR-011- 4014 / / Daig [place] [id number] Angio-Seal Evolution 6fr .035in Guidewire Bypass Tube Suture - [id number] Implanted:Qty: 1 on 11/22/2018 by Sarah Vasquez MD at [facility] [employer] 08/12/2019 [id number] / / [id number] Medtronic Sofamor [place] [id number] Infuse 14mm 23mm Absorbable Sponge Sterile Water Syringe Needle - [id number] Implanted:Qty: 1 on 06/02/2019 by Zoey Sexton MD at [facility] Right: Foot Medtronic Inc 01/11/2021 [id number] / / [id number] Medline Industries Inc [id number] Plate Bone Medline Unite 0 D Medium Metatarsophalangeal Right Fusion Nonsterile - [id number] Implanted:Qty: 1 on 06/02/2019 by Zoey Sexton MD at [facility] Right: Foot [employer] Inc [id number] / / [employer] Inc [id number] Pin Fixation Medline Unite L10mm Od1.1mm - [id number] Implanted:Qty: 1 on 06/02/2019 by Zoey Sexton MD at [facility] Right: Foot [employer] [id number] / / [employer] Inc [id number] Screw Bone Medline Unite L34mm Od4.5mm Head Nonsterile - [id number] Implanted:Qty: 1 on 06/02/2019 by Zoey Sexton MD at [facility] Right: Foot [employer] Inc [id number] / / [employer] Inc [id number] Screw Bone Medline Unite L16mm Od3.5mm Foot Ankle Nonlock - [id number] Implanted:Qty: 1 on 06/02/2019 by Zoey Sexton MD at [facility] Right: Foot [employer] [id number] / / [employer] [id number] Screw Bone Medline Unite L18mm Od3.5mm Foot Ankle Nonlock - [id number] Implanted:Qty: 1 on 06/02/2019 by Zoey Sexton MD at [facility] Right: Foot [employer] [id number] / / [employer] [id number] Screw Bone Medline Unite L20mm Od3.5mm Foot Ankle Nonlock - [id number] Implanted:Qty: 2 on 06/02/2019 by Zoey Sexton MD at [facility] Right: Foot [id number] / / [employer] Triathlon Cruciate Retain Bead Knee Left 5 Component Femoral Pa 5517-F-501 - [id number] Implanted:Qty: 1 on 04/24/2024 by Zbigniew Noel MD at [facility] [employer] [id number] 02/27/2029 5517-F-5 01 / / [id number] [employer] Triathlon Knee 6 Baseplate Tibial Tritanium 5536-B-600 - [id number] Implanted:Qty: 1 on 04/24/2024 by Zbigniew Noel MD at [facility] [employer] [id number] 11/08/2028 5536-B-6 00 / / [id number] [employer] Insert Tibial Triathlon 6 H11mm Knee Bearing Condylar Stabilize Sterile 2701-Q-330-E - [id number] Implanted:Qty: 1 on 04/24/2024 by Zbigniew Noel MD at [facility] [employer] [id number] 12/19/2028 5531-G-6 11-E / / [id number] Explanted Type Area Tissue Rewinder Device Identifier Shelf Expiration Date Model / Serial / Lot [employer] [id number] Anne .45in 9in 1 [employer] Wire Fixation - S0 - [id number] Explanted:Qty: 1 on 08/06/2020 by Zoey Sexton MD at [facility] Wire [employer] [id number] S / 0 / Description:Provisional fixa tion [employer] [id number] Anne .062in 9in 1 [employer] Wire Fixation - [id number] Explanted:Qty: 1 [facility]28/[facility] Right: Foot [employer] [id number] / / Description:Provisional fixa tion [employer] [id number] Anne .062in 9in 1 [employer] Sm[employer] Wire Fixation - [id number] Explanted:Qty: 1 on 06/28/2018 at [facility] Right: Foot [employer] [id number] / / Description:Provisional fixa tion [employer] [id number] Anne .062in 9in 1 [employer]car Smooth Wire Fixation - [id number] Explanted:Qty: 1 on 06/28/2018 at [facility] Right: Foot [employer] [id number] / / Description:Provisional fixa tion Screw Explanted:Qty: 5 on 08/06/2020 by Zoey Sexton MD at [facility] Other / 0 / Plate Explanted:Qty: 1 on 08/06/2020 by Drew Espinosa MD at [facility] Other / 0 / Procedures [...] 2:35 PM CDT Coronary artery disease involving [place] heart without angina pectoris, unspecified vessel or lesion type CORONARY FLOW VELOCITY (CFR) / INSTATANEOUS FLOW VELOCITY (IFR), 1ST VESSEL Routine 10/16/2024 2:35 PM CDT Coronary artery disease involving [place] heart without angina pectoris, unspecified vessel or lesion type RIGHT CORONARY ANGIOGRAPHY Routine 10/16/2024 2:35 PM CDT Coronary artery disease involving [place] heart without angina pectoris, unspecified vessel or [...] Routine) 10/04/2024 2:41 PM CDT Atherosclerosis of [place] artery of both lower extremities with intermittent claudication PRO B-TYPE NATRIURETIC PEPTIDE Routine 10/03/2024 11:50 AM CDT Coronary artery disease involving [place] coronary artery of [place] heart without angina pectoris BASIC METABOLIC PANEL Routine 10/03/2024 11:50 AM CDT Coronary artery disease involving [place] coronary artery of [place] heart without angina pectoris CBC WITH AUTO DIFFERENTIAL Routine 10/03/2024 11:50 AM CDT Coronary artery disease involving [place] coronary artery of [place] heart without angina pectoris TRANSTHORACIC ECHO (TTE) COMPLETE W DOPPLER/CF W CONTRAST Routine 10/03/2024 10:29 AM CDT Cardiomyopathy, ischemic VL US ARTERIAL DUPLEX LOWER EXTREMITY BILATERAL Schedule Routine, Read Routine (OP Routine) 09/05/2024 10:30 AM CDT Atherosclerosis of [place] artery of both lower extremities with intermittent claudication US SANTIAGO Schedule Routine, Read Routine (OP Routine) 09/05/2024 10:30 AM CDT Atherosclerosis of [place] artery of both lower extremities with intermittent claudication US DUPLEX SCAN AORTA, IVC ILIAC COMPLETE Schedule Routine, Read Routine (OP Routine) 09/05/2024 10:30 AM CDT Atherosclerosis of [place] artery of both lower extremities with intermittent claudication Other specified symptoms and signs involving the circulatory and respiratory systems POCT HEMOGLOBIN A1C Routine 09/04/2024 10:38 AM CDT Diabetes mellitus type II, non insulin dependent (HCC) PAIN MGMT IMAGING SHOULDER, HIP, KNEE JOINT/BURSA INJ BILATERAL Schedule Routine, Read Routine (OP Routine) 08/10/2024 11:30 AM NEW AUTOS DELIVERY DRIVER Greater trochanteric bursitis of both hips CTA ABDOMINAL AORTA AND BILATERAL ILIOFEMORAL RUNOFF Schedule Routine, Read Routine (OP Routine) 09/27/2023 11:27 AM CDT Claudication in peripheral vascular disease POCT LIPID PANEL Routine 09/21/2023 9:27 AM CDT Mixed hyperlipidemia PSA SCREEN Routine 06/17/2023 10:13 AM NEW AUTOS DELIVERY DRIVER Prostate cancer screening COLONOSCOPY 01/01/2021 12:16 PM CDT from Last 3 Months or Most Recently Relevant to Health Maintenance Results * SCAN - LABS (11/03/2024 4:59 PM CDT) us Perry Romero MD Final Result * SCAN - LABS (11/02/2024 11:22 AM CDT) us Perry Romero MD Final Result * SCAN - LABS (11/02/2024) Provider Scanning Final Result * SCAN - RADIOLOGY/IMAGING (10/31/2024 2:18 PM CDT) Anatomical Region Laterality Modality Other Perry Romero MD Final Result * eGFR [...] MD LAB BLOOD ORDERABLES F inal Result [facility] [address] [place] [address] * Basic metabolic panel (10/18/2024 10:10 AM CDT) Sodium 137 135 - 145 mmol/L Potassium, pl 4.3 3.3 - 4.9 mmol/L [facility] Chloride 101 97 - 110 mmol/L [facility] CO2 22 22 - 32 mmol/L [facility] Anion gap 14 2 - 15 mmol/L [facility] BUN 18 6 - 25 mg/dL [facility] Creatinine 1.14 0.80 - 1.30 mg/dL [facility] Glucose 130 70 - 199 mg/dL [facility] Comment: Interpretive Data Fasting glucose [...] 2022. Calcium 10.0 8.5 - 10.3 mg/dL [facility] Blood 10/18/2024 10:1 0 AM CDT 10/18/2024 3:54 PM CDT Rigo Carroll MD LAB BLOOD ORDERABLES F inal Result [facility] [address] [place] [address] * POCT glucose (10/16/2024 3:20 PM CDT) [facility] Glucose, POC 95 70 - 199 mg/dL Blood 10/16/2024 3:20 PM CDT 10/16/2024 3:20 PM CDT Clifford Sandy MD LAB POCT ORDERABLES - DEVICE Final Result [facility] [place] [address] * RIGHT CORONARY ANGIOGRAPHY, CORONARY FLOW VELOCITY [...] and OM2 Known atretic KAUR to LAD PHARMACY TECHNICIAN INSTRUCTOR of the mid RCA THERAPEUTIC RECOMMENDATIONS: Left [...] result were not included. Cardiovascular Procedure Center [facility] [address], [address] [place] [id number] CORONARY AND GRAFT REPORT Patient: Vicky Youssef : 1955 MR number: [id number] Date of Service: 10/16/2024 Dividend Clerk: Clifford Sandy MD Fellow: Salvador Arita MD and Madalyn Reynaga MD Referring physician: Rigo Carroll MD INDICATION: worsening LV function, dyspnea PATIENT CLINICAL PROFILE: Vicky Youssef is a 69 y.o. male with a history of CABG s/p KAUR-LAD (atretic), SVG-Ramus/high OM, SVG-OM2, PCI to LM-LAD with a 4.0 mm [place] SHEMAR, mild LV dysfunction, who is presenting with worsening LV dysfunction and some dyspnea on exertion. PROCEDURE: The risks, benefits and alternatives of the procedures and moderate sedation were explained to the patient and informed consent was obtained. The patient was brought to the receiver/laborer and placed on the table. Bilateral groins were prepped and draped in the usual sterile fashion. Ultrasound guidance was used to obtain access. I provided direct pdfr-on-keuc moderate conscious sedation which administered by independent [...] The RCA has slow flow and a PHARMACY TECHNICIAN INSTRUCTOR in the mid segment which is unchanged [...] 231(H) 123 - 168 sec POC Performer [id number] [facility] POC Device Number [id number] [facility] Blood 10/16/2024 2:30 PM CDT 10/16/2024 2:30 PM CDT Clifford Sandy MD LAB POCT ORDERABLES - DEVICE Final Result [facility] [place] [address] * (ABNORMAL) POCT Activated clotting time, low range (10/16/2024 2:11 PM CDT) ACT 269(H) 123 - 168 sec POC Performer [id number] [facility] POC Device Number [id number] [facility] Blood 10/16/2024 2:11 PM CDT 10/16/2024 2:11 PM CDT Clifford Sandy MD LAB POCT ORDERABLES - DEVICE Final Result [facility] [place] [address] * CBC without differential (10/16/2024 12:35 PM CDT) WBC See Comment 3.80 - 9.90 Comment:Credited, specimen c lotted. Hgb See Comment 13.0 - 17.5 [facility] Comment:Credited, specimen c lotted. Hct See Comment 38.9 - 50.3 [facility] Comment:Credited, specimen c lotted. Plt See Comment 150 - 400 [facility] Comment:Credited, specimen c lotted. MPV See Comment 9.1 - 12.3 [facility] Comment:Credited, specimen c lotted. RBC See Comment 4.30 - 5.80 [facility] Comment:Credited, specimen c lotted. MCV See Comment 81.3 - 96.4 [facility] Comment:Credited, specimen c lotted. MCH See Comment 27.1 - 33.3 [facility] Comment:Credited, specimen c lotted. MCHC See Comment 32.3 - 35.7 [facility] Comment:Credited, specimen c lotted. RDW CV See Comment 11.1 - 14.9 [facility] Comment:Credited, specimen c lotted. RDW SD See Comment 35.7 - 48.1 [facility] Comment:Credited, specimen c lotted. NRBC abs See Comment 0.00 - 0.01 [facility] Comment:Credited, specimen c lotted. Blood 10/16/2024 12:3 5 PM CDT 10/16/2024 2:05 PM CDT Narrative [facility] - 10/16/2024 2:33 PM CDT To be drawn after hydration bolus complete Clifford Sadny MD LAB BLOOD ORDERABLES Final Result [facility] [place] [address] * POCT glucose (10/16/2024 9:19 AM CDT) Glucose, POC 118 70 - 199 mg/dL Blood 10/16/2024 9:19 AM CDT 10/16/2024 9:19 AM CDT us Clifford Sandy MD LAB POCT ORDERABLES - DEVICE Final Result Performing Organization Address [facility] de Phone Number [facility] [place] [address] * ECG 12 lead (10/16/2024 8:32 AM CDT) [facility] Ventricular Rate EKG/Min 70 BPM [facility] Atrial Rate 70 BPM [facility] ID-Interval (MSEC) 304 ms [facility] QRS-Interval (MSEC) 132 ms [facility] QT-Interval (MSEC) 374 ms [facility] QTc 403 ms [facility] P [place] 2 degrees [facility] R [place] 1 degrees [facility] T [place] 252 degrees [facility] Diagnosis Atrial-paced rhythm with prolonged AV conduction Left ventricular hypertrophy with QRS widening and repolarization abnormality ( Sokolow-Pereira , [place] product ) Cannot rule out Septal infarct , age undetermined Abnormal ECG When compared with ECG of 25-NOV-2022 12:06, no significant change Confirmed by ERNESTINE TAVERAS M.D ([id number]) on 10/17/2024 3:04:55 PM [facility] 10/16/2024 8:32 AM CDT 10/17/2024 3:04 PM CDT Clifford Sandy MD ECG ORDERABLES Lilia l Result Performing Organization Address [facility] Co de Phone Number [facility] * DEVICE CHECK - REMOTE (10/08/2024 3:10 AM CDT) Anatomical Region Laterality Modality Other 10/08/2024 3:10 AM CDT Narrative 10/11/2024 11:10 AM CDT Interpretation Summary: Battery and Leads (BL) Normal parameters noted on battery and lead(s) --- 35% remaining longevity (implanted 2014). Lead impedance, sensing, and threshold trends stable and appropriate. Presenting Rhythm (ID) Atrial Pacing-Ventricular Pacing (AP-VASCULAR ULTRASOUND TECHNOLOGIST) --- AP/VASCULAR ULTRASOUND TECHNOLOGIST 70s. Arrhythmic events (AE) No new arrhythmic [...] and threshold trends stableand appropriate. Presenting Rhythm (ID) Atrial Pacing-Ventricular Pacing (AP-VASCULAR ULTRASOUND TECHNOLOGIST) --- AP/VASCULAR ULTRASOUND TECHNOLOGIST 70s. Arrhythmic events (AE) No new arrhythmic [...] Study Date: 10/04/2024 1:37:00 PM Gender: M Manager Oncology: Leandra Frazier RN/RVT Ref Provider: IVET MONTANA Quality: Adequate Order Provider: IVET MONTANA PROCEDURES: Arterial Report: Bilateral lower extremity arterial Doppler exam at rest and with exercise. INDICATIONS: I70.213 Atherosclerosis of [place] arteries of extremities with intermittent claudication, bilateral legs. HISTORY: Claudication lower extremities L>R. HTN/HLD/DM/CAD/PREV SMOKER. COMPARISONS: The previous exam was completed on 09/05/2024. Compared to prior RT PT/DP .89/.53 LT PT/DP .92/.74. MEASUREMENTS: Right Value Left Value Rt Brachial Pressure 158 mmHg Lt Brachial Pressure 151 mmHg Rt MARITIME ENGINEER Pressure 169 mmHg Lt MARITIME ENGINEER Pressure 163 mmHg Rt DPA Pressure 164 [...] Study Date: 10/04/2024 1:37:00 PM Gender: M Manager Oncology: Leandra Frazier RN/RVT Ref Provider: IVET MONTANA Quality: Adequate Order Provider: IVET MONTANA PROCEDURES: Arterial Report: Bilateral lower extremity arterial Doppler exam at rest and withexercise. INDICATIONS: I70.213 Atherosclerosis of [place] arteries of extremities withintermittent claudication, bilateral legs. HISTORY: Claudication lower extremities L>R. HTN/HLD/DM/CAD/PREV SMOKER. COMPARISONS: The previous exam was completed on 09/05/2024. Compared to prior RT PT/DP .89/.53 LT PT/DP .92/.74. MEASUREMENTS: Right Value Left Value Rt Brachial Pressure 158 mmHg Lt Brachial Pressure 151 mmHg Rt MARITIME ENGINEER Pressure 169 mmHg Lt MARITIME ENGINEER Pressure 163 mmHg Rt DPA Pressure 164 [...] LAB BLOOD ORDERABLES F inal Result [facility] [place] [address] * CBC with auto differential (10/03/2024 11:50 [...] ORDERABLES F inal Result Performing Organization Address City/[facility] Co de Phone Number [facility] * Basic metabolic panel (10/03/2024 11:50 AM CDT) [facility] Glucose 97 64 - 99 mg/dL [...] MD LAB BLOOD ORDERABLES F inal Result [facility] * TRANSTHORACIC ECHO (TTE) COMPLETE W DOPPLER/CF W CONTRAST (10/03/2024 10:29 AM CDT) Anatomical Region Laterality Modality Ultrasound 10/03/2024 9:38 AM CDT Narrative 10/03/2024 11:12 AM CDT [facility] [place] [address] Transthoracic Echocardiographic Report Patient Name: VICKY YOUSSEF D : 1955 (69y 6m) Gender: M Study Date: 10/03/2024 09:38:56 AM Ht(Inch): 71 Wt(Lb): 210.98 BSA: 2.19 Manager Oncology: Soco Marcano RDCS Location: [facility] Order Provider: RIGO CARROLL Heart Rate: 70 [...] LA Length 4C 5.23 cm AI Decel [place] 2.86 m/s2 LA Length 2C 4.36 cm [...] Procedure Note Rigo Carroll MD - 10/03/2024 [facility] [place] [place] [address] Transthoracic Echocardiographic Report Patient Name: VICKY YOUSSEFGriselda : 1955 (69y 6m) Gender: M Study Date: 10/03/2024 09:38:56 AM Ht(Inch): 71 Wt(Lb): 210.98 BSA: 2.19 Manager Oncology: Soco Marcano RDCS Location: [facility] Order Provider:RIGO CARROLL Heart Rate: 70 BMI: [...] [ -25.0 - -18.0 ] AI Decel Blqq7875.25 sec LA Length 4C 5.23 cm AI Decel [place]2.86 m/s2 LA Length 2C 4.36 cm AI DBS949.99 msec LA Volume BP 50.69 ml Lat E` Vel4.0 cm/sec [ 10.0 - 25.0 ] LA Volume Index 23.15 ml/m2 [ 16.00 - 34.00 ] RV S`7.62 cm/sec RV Base Dimen 2D 3.9 cm [ 2.5 - 4.2 ] PV Peak Vel0.8 m/s [ 0.4 - 0.8 ] TAPSE 0.94 cm [ 1.71 - 5.00 ] PV Peak PG2.56 mmHg RA Gsdwdb13.65 ml RA Volume Index17.19 ml/m2 IVC Diam1.47 [...] 2:37 PM CDT Vascular & Vein Surgery [facility] [address] [place] [address] Lower Extremity Arterial Duplex Report Patient Name: VICKY YOUSSEFGriselda : 1955 (69y 5m) Gender: M Study Date: 09/05/2024 09:33:41 AM Ht(Inch): Wt(Lb): BSA: Manager Oncology: CORI Location: [facility] Order Provider: IVET MONTANA Quality: Adequate Ref Provider: IVET MONTANA PROCEDURES: Arterial Report: A non-invasive vascular imaging study of the bilateral lower extremity arteries was performed using B-mode ultrasound, color flow, and spectral Doppler. INDICATIONS: R>L claudication, remote hx BCIA stents. HISTORY: HTN. HLD. DM. CAD-AL S/P stent/CABG. Afib. Pacemaker. Former smoker. COMPARISONS: Prior CTA on 09/27/23. MEASUREMENTS: Right Value Left Value Rt SAP ADMINISTRATOR Dst PSV 77.00 cm/sec Lt SAP ADMINISTRATOR Dst PSV 87.00 cm/sec Rt Profunda Prx [...] - 09/06/2024 Vascular [facility] Vein Surgery [address] [place] [address]. [place] [address] Lower Extremity Arterial Duplex Report Patient Name: VICKY YOUSSEF D : 1955 (69y 5m) Gender: M Study Date: 09/05/2024 09:33:41 AM Ht(Inch): Wt(Lb): BSA: Manager Oncology: CORI Location: [facility] Order Provider: IVET MONTANA Quality: Adequate Ref Provider: IVET MONTANA PROCEDURES: Arterial Report: A non-invasive vascular imaging study of the bilaterallower extremity arteries was performed using B-mode ultrasound, color flow, and spectralDoppler. INDICATIONS: R>L claudication, remote hx BCIA stents. HISTORY: HTN. HLD. DM. CAD-AL S/P stent/CABG. Afib. Pacemaker. Former smoker. COMPARISONS: Prior CTA on 09/27/23. MEASUREMENTS: Right Value Left Value Rt SAP ADMINISTRATOR Dst PSV 77.00 cm/sec Lt SAP ADMINISTRATOR Dst PSV 87.00 cm/sec Rt Profunda Prx [...] 2:37 PM CDT Vascular & Vein Surgery [facility] [address] [place] [address] Lower Extremity Arterial Doppler Report Patient Name: VICKY YOUSSEF D : 1955 Study Date: 09/05/2024 8:50:00 AM Gender: M Manager Oncology: Maureen Vásquez RVT Location: [facility] Ref Provider: IVET MONTANA Quality: Adequate Order Provider: IVET MONTANA PROCEDURES: Arterial Report: Ankle - Brachial Index Doppler exam. INDICATIONS: Remote hx BCIA stents; R>L claudication. HISTORY: HTN. HLD. DM. CAD-AL S/P stent/CABG. Afib. Pacemaker. Former smoker. COMPARISONS: The previous exam was completed on 11/19/23. Compared to prior there is disease progression at bilateral dorsalis pedis arteries. MEASUREMENTS: Right Value Left Value Rt Brachial Pressure 159 mmHg Lt Brachial Pressure 146 mmHg Rt MARITIME ENGINEER Pressure 142 mmHg Lt MARITIME ENGINEER Pressure 147 mmHg Rt DPA Pressure 84 [...] MD - 09/06/2024 Vascular & Vein Surgery [address] [place] [address] Lower Extremity Arterial Doppler Report Patient Name: VICKY YOUSSEF D : 1955 Study Date: 09/05/2024 8:50:00 AM Gender: M Manager Oncology: Maureen Vásquez RVT Location: [facility] Ref Provider: IVET MONTANA Quality: Adequate Order Provider: IVET MONTANA PROCEDURES: Arterial Report: Ankle - Brachial Index Doppler exam. INDICATIONS: Remote hx BCIA stents; R>L claudication. HISTORY: HTN. HLD. DM. CAD-AL S/P stent/CABG. Afib. Pacemaker. Former smoker. COMPARISONS: The previous exam was completed on 11/19/23. Compared to prior there is disease progression at bilateral dorsalis pedisarteries. MEASUREMENTS: Right Value Left Value Rt Brachial Pressure 159 mmHg Lt Brachial Pressure 146 mmHg Rt MARITIME ENGINEER Pressure 142 mmHg Lt MARITIME ENGINEER Pressure 147 mmHg Rt DPA Pressure 84 [...] 2:37 PM CDT Vascular & Vein Surgery [facility] [address] [place] [address] Abdominal Aortic Duplex Ultrasound Report Patient Name: VICKY YOUSSEFGriselda : 1955 Study Date: 09/05/2024 8:52:47 AM Gender: M Manager Oncology: CORI Location: [facility] Ref Provider: IVET MONTANA [...] MD - 09/06/2024 Vascular & Vein Surgery [address] [place] [address] Abdominal Aortic Duplex Ultrasound Report Patient Name: VICKY YOUSSEFGriselda : 1955 Study Date: 09/05/2024 8:52:47 AM Gender: M Manager Oncology: Location: [facility] Provider: IVET MONTANA Quality: Adequate [...] 09/06/2024 1:47:06 PM CDT Ivet Montana MD [facility] US PROCEDURES Final Result * (ABNORMAL) POCT hemoglobin A1c (09/04/2024 10:38 AM CDT) Hemoglobin A1C, POC 6.4 4.0 - 5.6 % Blood 09/04/2024 10:3 8 AM CDT Perry Romero MD POINT OF CARE TEST ORDERABLES Final Result * Imaging Shoulder, Hip, Knee Joint/Bursa INJ INJ Bilateral () (08/10/2024 11:30 AM NEW AUTOS DELIVERY DRIVER) Narrative [facility] - 08/10/2024 11:30 AM NEW AUTOS DELIVERY DRIVER The images from this study are not [...] Result * PSA screen (06/17/2023 10:13 AM NEW AUTOS DELIVERY DRIVER) PSA 0.4 0.0 - 4.0 ng/mL [facility] - 01 Comment: Shahbaz ECLIA methodology. According to the [place] [employer], Serum PSA should decrease and [...] malignant disease. Blood 06/17/2023 10:1 3 AM NEW AUTOS DELIVERY DRIVER 06/17/2023 Narrative [facility] - 06/18/2023 6:11 AM NEW AUTOS DELIVERY DRIVER Performed at: [address] [id number] Personal Shopper: Edgar Menard PhD, Phone: [phone] Mamie Javiermartina Rose GRADES 9 12 TUTOR LAB BLOOD ORDERABLES Fin al Result [facility] - * COLONOSCOPY (01/01/2021 12:16 PM CDT) Anatomical Region Laterality Modality Other Narrative Procedure Note Emily Zeng MD - 01/01/2021 12:16 PM CDT [facility] Patient Name: Vicky Youssef Procedure Date: 01/01/2021 12:16 PM Date of : 1955 Admit Type: Outpatient Age: 65 Gender: Male Attending MD: Huy Reed Room: [facility] ENDOSCOPY ROOM 3 Note Status: Finalized Procedure: Colonoscopy Indications: Screening for colorectal malignant neoplasm, Last colonoscopy: date unknown. Per patient, last colonoscopy was 7 years ago. Referring MD: Perry Romero M.D. Providers: Emily Zegn M.D. Medicines: Monitored Anesthesia Care Complications: No [...] bowel preparation was evaluated using the BBPS ([place] Bowel Preparation Scale) with scores of:Right Colon [...] On: 01/01/2021 12:16 PM Recognized by the [employer] for promoting quality in endoscopy Emily Zeng MD ENDOSCOPY PROCEDUR ES Final Result from Last 3 Months or Most Recently Relevant to Health Maintenance Insurance MEDICARE BLUE CROSS MEDICARE SUPPLEMENT MEDICARE [facility] MEDICARE MEDICARE [facility] MEDICARE SUPPLEMENT MEDICARE [employer]UE [employer]OSS MEDICARE SUPPLEMENT MEDICARE [facility] CROSS MEDICARE SUPPLEMENT Advance Directives For more information, please contact: [phone] * Full Code (Latest Code Status on [...] 4:34 PM 05/02/2021 4:45 PM Care Teams Plastic Molding Operator Relationship Specialty Start Date End Date Perry Romero MD PCP - General Internal Medicine 02/23/20 Rigo Carroll MD Director Design Cardiology 05/23/19 Love Jones, PT Physical Therapist Physical Therapy 09/28/22 Arthur Bateman MD [address] [address] Referring Physician Anesthesiology 09/28/22 Karl Cha MD [address] [place] [address] Referring Physician Orthopedic Surgery 11/24/23
[2024-11-07 17:48] LABS: Color Synovial Fluid Yellow (Colorless); Crystals Synovial Fluid None Seen (None Seen); Source Synovial Fluid Lt Knee Syn Fluid
[2024-11-07 17:49] LABS: Appearance Synovial Fluid Hazy (Clear); Lymphocytes Synovial Fluid 46 %; Macrophages Synovial Fluid 14 %; Monocytes Synovial Fluid 10 %; Neutrophils Synovial Fluid 30 % (0-25); Nucleated Cell Synovial Fluid 178 /uL (0-200); RBC Synovial Fluid 5000 /uL (0-0)
== END 2024-11-07 15:56 | disposition home or self-care (01) ==
LOC: ANHLAB 15:57
PROVIDERS: PCP Internal Medicine; Visit Provider Orthopaedic Surgery
DX: M25.562 Pain in left knee (principal); M25.462 Effusion, left knee; Z96.652 Presence of left artificial knee joint
CPT/HCPCS: 87070; 87075; 87205; 89051; 89060

== ENCOUNTER 2025-01-11 09:17 | Outpatient (CLI) | payer MEDICARE, SELFPAY ==
--- OUTSIDE RECORDS SUMMARY | 2025-01-11 09:40 | XMS_ITS | Encounter Summary ---
Author Organization [facility] Healthcare Address [address] [place] [address] Care Team Providers Care Sales Representative Meats Name Role Phone Deacon Eisenberg DO Primary Care Provider [phone] Leonidas Carroll MD Unavailable [phone] Perry Romero MD Primary Care Provider [phone] Love Jones PT Unavailable Unavailab Arthur Law MD Unavailable Karl Cah MD Unavailable [phone] Encounter Details Date Type Department Care Team (Late st Contact Info) Description 06/03/2019 Documentation [facility] Case Management [address] [place] [address] Shahram Baxter, RN Social History Tobacco Use Types Packs/Day Years Used Date Smoking Tobacco: Former Cigarettes 1 28 1 975 - 2002 Smokeless Tobacco: Never Alcohol Use Standard Drinks/Week Comments Not Currently 0 (1 standard drink = 0.6 oz pur e alcohol) Sex and Gender Information Value Date Recorded Sex Assigned at Not on file Legal Sex Male 11:34 PM MANAGEMENT ASSOCIATE Gender Identity Not on file Sexual Orientation Not on file documented as of this encounter Miscellaneous Notes * Plan of Care - Shahram Baxter, RN - 06/03/2019 2:18 PM CST Case Management Weekend Follow-UP: Referral received from diect care nurse Cata, brandon today, needs wheeled walker and dischargetransportation. However, notified by Cata, patient arranged discharge transportaion and Left for discharge prior to Novelty Twister Tender pravin greene Please call the Weekend Novelty Twister Tender @ [phone] if additional assistance needed. GEMENT ASSOCIATE documented in this encounter Plan of Treatment Not on file documented as of this encounter Visit Diagnoses Not on filedocumented in this encounter Care Teams Sales Representative Meats Relationship Specialty Start Date End Date Deacon Eisenberg DO PCP - General 11/22/18 02/22/20 Perry Romreo MD PCP - General Internal Medicine 02/23/20 Leonidas Carroll MD Front Desk Admin Cardiology 05/23/19 Love Jones, PT Physical Therapist Physical Therapy 09/28/22 Arthur Bateman MD [address] [address] Referring Physician Anesthesiology 09/28/22 Karl Cha MD [facility] [place] [address] Referring Physician Orthopedic Surgery 11/24/23 documented as of this encounter
--- OUTSIDE RECORDS SUMMARY | 2025-01-11 09:40 | XMS_ITS | Encounter Summary ---
Author Organization [facility] Address [address] [place] [address] Phone Care Team Providers Care Claim Rep Name Role Phone Tim Sanchez MD Primary Care Provider [phone] Lina Mcadams MD Primary Care Provide r Deacon Eisenberg DO Primary Care Provider [phone] Leonidas Carroll MD Unavailable [phone] Perry Romero MD Primary Care Provider [phone] Love Jones PT Unavailable Unavailab Arthur Law MD Unavailable Karl Cha MD Unavailable [phone] Encounter Details Date Type Department Care Team (Late st Contact Info) Description 11/24/2015 Orders Only [facility] CAR CLINCONV ProviderHeena MD [address] [place] [address] Social History Tobacco Use Types Packs/Day Years Used Date Smoking Tobacco: Never Assessed Sex and Gender Information Value Date Recorded Sex Assigned at Not on file 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 [address] [place] [address] PCP - General 01/14/18 11/21/18 Deacon Eisenberg DO [address] [facility] [address] [place] [address] PCP - General 11/22/18 02/22/20 Perry Romero MD [address] [address] PCP - General Internal Medicine 02/23/20 Leonidas Carroll MD [address] [facility] [address] [place] [address] Core Drill Operator Helper Cardiology 05/23/19 Love Jones, PT Physical Therapist Physical Therapy 09/28/22 Arthur Bateman MD [address] [facility] [address] [place] [address] Referring Physician Anesthesiology 09/28/22 Karl Cha MD [address] [facility] [address] [place] [address] Referring Physician Orthopedic Surgery 11/24/23 documented as of this encounter
--- OUTSIDE RECORDS SUMMARY | 2025-01-11 09:40 | XMS_ITS | Encounter Summary ---
Author Organization [facility] Healthcare Address [address] [place] [address] Care Team Providers Care Carpenter Mine Name Role Phone Leonidas Carroll MD Unavailable [phone] Perry Romero MD Primary Care Provider [phone] Love Jones PT Unavailable Unavailab Arthur Law MD Unavailable Karl Cha MD Unavailable [phone] Encounter Details Date Type Department Care Team (Late st Contact Info) Description 07/08/2023 Telephone [facility] [address] [facility] Advanced Medicine [address] [place], [place] [id number] Arthur Bateman MD [address] [facility] [address] [place] [address] Social History Tobacco Use Types Packs/Day Years [...] week 05/02/2021 How often do you attend [facility] or pentecostal services? 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 Author CCM Chronic Pain Care Plan Chronic Care Management Worsening( 1:54 PM CDT) No Brissa Muse, RN Note: Problem: Chronic Pain Goals: 1. Minimize further functional decline 2. Maximize quality of life 3. Control pain Strategies: - Activity/exercise program recommendation - Conservative stepwise pain medicine strategy with multi-disciplinary approach - Recommend healthy lifestyle strategies and compensatory methods as needed documented as of this encounter Visit Diagnoses Not on filedocumented in this encounter Care Teams Carpenter Mine Relationship Specialty Start Date End Date Perry Romero MD PCP - General Internal Medicine 02/23/20 Leonidas Carroll MD Designated Broker Cardiology 05/23/19 Love Jones, PT Physical Therapist Physical Therapy 09/28/22 Arthur Bateman MD [address] [address] Referring Physician Anesthesiology 09/28/22 Karl Cha MD [address] [place] [address] Referring Physician Orthopedic Surgery 11/24/23 documented as of this encounter
--- OUTSIDE RECORDS SUMMARY | 2025-01-11 09:40 | XMS_ITS | Encounter Summary ---
Author Organization [facility] Address [address] [place] [address] Phone Care Team Providers Care Sailing Officer Name Role Phone Tim Sanchez MD Primary Care Provider [phone] Lina Mcadams MD Primary Care Provide r Deacon Eisenberg DO Primary Care Provider [phone] Leonidas Carroll MD Unavailable [phone] Perry Romero MD Primary Care Provider [phone] Love Jones PT Unavailable Unavailab Arthur Law MD Unavailable Karl Cha MD Unavailable [phone] Encounter Details Date Type Department Care Team (Latest Contact Info) Description 03/05/2017 Orders Only [facility] CONVERSION Scanning, Provider Social History Tobacco Use Types Packs/Day Years Used Date Smoking Tobacco: Never Assessed Sex and Gender Information Value Date Recorded Sex Assigned at Not on file 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 Gender Identity Not on file Sexual Orientation [...] on filedocumented in this encounter Care Teams Sailing Officer Relationship Specialty Start Date End Date Tim Sanchez MD [address] [place] [address] PCP - General 09/29/16 01/13/18 Lina Mcadams MD [address] [facility] [address] [place] [address] PCP - General 01/14/18 11/21/18 Deacon Eisenberg DO [address] [address] PCP - General 11/22/18 02/22/20 Perry Romero MD [address] [address] PCP - General Internal Medicine 02/23/20 Leonidas Carroll MD [address] [address] Pre School Teacher Cardiology 05/23/19 Love Jones, PT Physical Therapist Physical Therapy 09/28/22 Arthur Bateman MD [address] [address] Referring Physician Anesthesiology 09/28/22 Karl Cha MD [address] [facility] [address] [place] [address] Referring Physician Orthopedic Surgery 11/24/23 documented as of this encounter
--- OUTSIDE RECORDS SUMMARY | 2025-01-11 09:40 | XMS_ITS | Encounter Summary ---
Author Organization [facility] Address [address] [place] [address] Phone Care Team Providers Care Virtual Classroom Manager Name Role Phone Leonidas Carroll MD Unavailable [phone] Perry Romero MD Primary Care Provider [phone] Love Jones PT Unavailable Unavailab Arthur Law MD Unavailable Karl Cha MD Unavailable [phone] Encounter Details Date Type Department Care Team (Late st Contact Info) Description 01/06/2025 Orders Only [facility] Cardiology [address] [facility] [address] [place] [address] Maty Weber MD [address] [address] Social History Tobacco Use Types Packs/Day Years Used Date Smoking Tobacco: Former Cigarettes 1 28 1 975 - 2002 Passive Smoke Exposure: Past Smokeless Tobacco: Never Passive Exposure Comments:pa rents smoked Alcohol Use Standard Drinks/Week Comments Not Currently [...] often do you attend chur ch or adventism services? 1 to 4 times per year 05/02/2021 Do you belong to any clubs o r organizations such as worship groups, unions, fraternal or athletic groups, or school groups? No 05/02/2021 How often do you attend meet ings of the clubs or organizations you belong to? Never 05/02/2021 Are you , , di vorced, , never , or living with a partner? 05/02/2021 AUDIT-C Answer Date Recorded Q1: How often do you have a drink containing alcohol? Never 12/08/2024 Q2: How many drinks containi ng alcohol do you have on a typical day when you are drinking? Patient does not drink Q3: How often do you have si x or more drinks on one occasion? Never 12/08/2024 Overall Financial Resource Strain (CARDIA) Answe r [...] the money to buy more. Never true 11/30/19 25 Within the past 12 months, t he food you bought just didn't last and you didn't have money to get more. Never true 11/29/2024 PRAPARE - Transportation Answer Date Re corded [...] making you feel afraid or unsafe? 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 Gender Identity Not on file Sexual Orientation [...] Procedure Name Priority Date/Time Associated Diagnosis Comments DEVICE CHECK - REMOTE Routine 01/06/2025 2:57 AM CDT documented in this encounter Results * DEVICE CHECK - REMOTE (01/06/2025 2:57 AM CDT) Anatomical Region Laterality Modality Other 01/06/2025 2:57 AM CDT Narrative 01/10/2025 2:37 PM CDT Interpretation Summary: Battery and Leads (BL) Normal parameters noted on battery and lead(s) --- 30 % remaining Presenting Rhythm (WA) Atrial Pacing-Ventricular Sensing (AP-VS) --- rate 70 Arrhythmic events (AE) No new arrhythmic events in monitoring period Transmission Information (TI) Device Summary Report Procedure Note Maty Weber MD - 01/10/2025 Interpretation Summary: Battery and Leads (BL) Normal parameters noted on battery and lead(s) --- 30 % remaining Presenting Rhythm (WA) Atrial Pacing-Ventricular Sensing (AP-VS) --- rate 70 Arrhythmic events (AE) No new arrhythmic events in monitoring period Transmission Information (TI) Device Summary Report us Maty Weber MD [facility] PROCEDURES Final Result documented in this encounter Visit Diagnoses Not on filedocumented in this encounter Care Teams Virtual Classroom Manager Relationship Specialty Start Date End Date Perry Romero MD PCP - General Internal Medicine 02/23/20 Leonidas Carroll MD Firer Low Pressure Cardiology 05/23/19 Love Jones, PT Physical Therapist Physical Therapy 09/28/22 Arthur Bateman MD [address] [address] Referring Physician Anesthesiology 09/28/22 Karl Cha MD [facility] [facility] [address] [place] [address] Referring Physician Orthopedic Surgery 11/24/23 documented as of this encounter
--- OUTSIDE RECORDS SUMMARY | 2025-01-11 09:40 | XMS_ITS | Encounter Summary ---
Author Organization 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
--- OUTSIDE RECORDS SUMMARY | 2025-01-11 09:40 | XMS_ITS | Encounter Summary ---
Author Organization [facility] Address [address] [place] [address] Phone Care Team Providers Care Orthopedic Rn Name Role Phone Tim Sanchez MD Primary Care Provider [phone] Lina Mcadams MD Primary Care Provide r Deacon Eisenberg DO Primary Care Provider [phone] Leonidas Carroll MD Unavailable [phone] Perry Romero MD Primary Care Provider [phone] Love Jones PT Unavailable Unavailab Arthur Law MD Unavailable Karl Cha MD Unavailable [phone] Encounter Details Date Type Department Care Team (Late st Contact Info) Description 08/01/2017 Orders Only [facility] CAR CLINCONV ProviderHeena MD [address] [place] [address] Social History Tobacco Use Types Packs/Day Years Used Date Smoking Tobacco: Never Assessed Sex and Gender Information Value Date Recorded Sex Assigned at Not on file 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 Gender Identity Not on file Sexual [...] on filedocumented in this encounter Care Teams Orthopedic Rn Relationship Specialty Start Date End Date Tim Sanchez MD [address] [facility] [address] [place] [address] PCP - General 09/29/16 01/13/18 Lina Mcadams MD [address] [facility] [address] [place] [address] PCP - General 01/14/18 11/21/18 Deacon Eisenberg DO [address] [facility] [address] [place] [address] PCP - General 11/22/18 02/22/20 Perry Romero MD [address] [address] PCP - General Internal Medicine 02/23/20 Leonidas Carroll MD [address] [facility] [address] [place] [address] Securities Lending Trader Cardiology 05/23/19 Love Jones, PT Physical Therapist Physical Therapy 09/28/22 Arthur Bateman MD [address] [facility] [address] [place] [address] Referring Physician Anesthesiology 09/28/22 Karl Cha MD [address] [facility] [address] [place] [address] Referring Physician Orthopedic Surgery 11/24/23 documented as of this encounter
--- OUTSIDE RECORDS SUMMARY | 2025-01-11 09:40 | XMS_ITS | Encounter Summary ---
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
--- OUTSIDE RECORDS SUMMARY | 2025-01-11 09:40 | XMS_ITS | Encounter Summary ---
Author Organization [facility] Address [address] [place] [address] Phone Care Team Providers Care Recreation Technician Name Role Phone Tim Sanchez MD Primary Care Provider [phone] Lina Mcadams MD Primary Care Provide r Deacon Eisenberg DO Primary Care Provider [phone] Leonidas Carroll MD Unavailable [phone] Perry Romero MD Primary Care Provider [phone] Love Jones PT Unavailable Unavailab Arthur Law MD Unavailable Karl Cha MD Unavailable [phone] Encounter Details Date Type Department Care Team (Late st Contact Info) Description 09/15/2016 Orders Only [facility] CAR CLINCONV ProviderHeena MD [address] [place] [address] Social History Tobacco Use Types Packs/Day Years Used Date Smoking Tobacco: Never Assessed Sex and Gender Information Value Date Recorded Sex Assigned at Not on file 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 Gender Identity Not on file Sexual Orientation [...] Date End Date Tim Sanchez MD [address] [facility] [address] [place] [address] PCP - General 09/29/16 01/13/18 Lina Mcadams MD [address] [facility] 15 [place] [address] PCP - General 01/14/18 11/21/18 Deacon Eisenberg DO [address] [facility] [address] [place] [address] PCP - General 11/22/18 02/22/20 Perry Romero MD [address] [address] PCP - General Internal Medicine 02/23/20 Leonidas Carroll MD [address] [facility] [address] [place] [address] Art Coordinator Cardiology 05/23/19 Love Jones, PT Physical Therapist Physical Therapy 09/28/22 Arthur Bateman MD [address] [facility] [address] [place] [address] Referring Physician Anesthesiology 09/28/22 Karl Cha MD [address] [facility] [address] [place] [address] Referring Physician Orthopedic Surgery 11/24/23 documented as of this encounter
--- OUTSIDE RECORDS SUMMARY | 2025-01-11 09:40 | XMS_ITS | Encounter Summary ---
Author Organization [facility] Healthcare Address [address] [place] [address] Care Team Providers Care Document Management Technician Name Role Phone Leonidas Carroll MD Unavailable [phone] Perry Romero MD Primary Care Provider [phone] Love Jones PT Unavailable Unavailab Arthur Law MD Unavailable Karl Cha MD Unavailable [phone] Reason for Visit * Reason Onset Date Comments PMC Preprocedure 01/10/2025 Anticoagulation 01/10/2025 Encounter Details Date Type Department Care Team (Late st Contact Info) Description 01/10/2025 Telephone [facility] [address] [facility] [address] Medicine [address] [place], [place] [id number] Arthur Bateman MD [address] [facility] [address] [place], [place] [id number] PMC Preprocedure; Anticoagulation Social History Tobacco Use Types Packs/Day Years Used Date Smoking Tobacco: Former Cigarettes 1 1 975 - 2002 Passive Smoke Exposure: [...] often do you attend chur ch or caodaism services? 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 Author CCM Chronic Pain Care Plan Chronic Care Management Worsening( 1:54 PM CDT) Brissa Pate RN Note: Problem: Chronic Pain Goals: 1. Minimize further functional decline 2. Maximize quality of life 3. Control pain Strategies: - Activity/exercise program recommendation - Conservative stepwise pain medicine strategy with multi-disciplinary approach - Recommend healthy lifestyle strategies and compensatory methods as needed documented as of this encounter Visit Diagnoses Not on filedocumented in this encounter Care Teams Document Management Technician Relationship Specialty Start Date End Date Perry Romero MD PCP - General Internal Medicine 02/23/20 Leonidas Carroll MD A R Collections Rep Cardiology 05/23/19 Love Jones, PT Physical Therapist Physical Therapy 09/28/22 Arthur Bateman MD [address] [address] Referring Physician Anesthesiology 09/28/22 Karl Cha MD [facility] [place] [address] Referring Physician Orthopedic Surgery 11/24/23 documented as of this encounter
--- OUTSIDE RECORDS SUMMARY | 2025-01-11 09:40 | XMS_ITS | Encounter Summary ---
Author Organization [facility] Address [address] [place] [address] Phone Care Team Providers Care Requisition Approver Name Role Phone Deacon Eisenberg DO Primary Care Provider [phone] Provider, None Primary Care Provider Unavailabl e Encounter Details Date Type Department Care Team (Late st Contact Info) Description 02/15/2020 Transcribe Orders [facility] Preop/Pacu II [address] [place] [id number] Anish Martinez MD [address] [place] [address] Pre-op testing (Primary Dx) Social History Tobacco [...] ABO TYPING AB 02/20/2020 2:05 PM CDT [facility] RH Positive 02/20/2020 2:05 PM CDT [facility] ABSC Negative 02/20/2020 2:05 PM CDT [facility] Blood Venipuncture / Unknown 02/20/2020 10:52 AM CDT 02/20/2020 11:43 AM CDT us Anish Martinez MD BLOOD BANK ORDERABLES Edited Result - Final [facility] [address] [place] [address] documented in this encounter Visit Diagnoses Diagnosis Pre-op testing- Primary Preoperative examination, unspecified documented in this encounter Care Teams Requisition Approver Relationship Specialty Start Date End Date Deacon Eisenberg DO [address] [address] PCP - General Family Medicine 11/15/19 02/19/20 Provider, None [place] PCP - General 02/20/20 documented as of this encounter
--- OUTSIDE RECORDS SUMMARY | 2025-01-11 09:40 | XMS_ITS | Encounter Summary ---
Author Organization [facility] Address [address] [place] [address] Phone Care Team Providers Care Policy Change Clerks Supervisor Name Role Phone Lina Mcadams MD Primary Care Provide r Deacon Eisenberg DO Primary Care Provider [phone] Leonidas Carroll MD Unavailable [phone] Perry Romero MD Primary Care Provider [phone] Love Jones PT Unavailable Unavailab Arthur Law MD Unavailable Karl Cha MD Unavailable [phone] Encounter Details Date Type Department Care Team (Late st Contact Info) Description 07/08/2018 Telephone [facility] Cardiology [address] [facility] Advanced Medicine 8th [place] [address] [place] [address] Leonidas Carroll MD [address] [facility] [address] [place], [place] [id number] Social History Tobacco Use Types Packs/Day Years Used Date Smoking Tobacco: Former Cigarettes Q uit: 2002 Smokeless Tobacco: Never Alcohol Use Standard Drinks/Week Comments No 0 (1 standard drink = 0.6 oz pur e alcohol) Sex and Gender Information Value Date Recorded Sex Assigned at Not on file 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 Gender Identity Not on file Sexual Orientation Not on file documented as of this encounter Plan of Treatment Not on file documented as of this encounter Visit Diagnoses Not on filedocumented in this encounter Care Teams Policy Change Clerks Supervisor Relationship Specialty Start Date End Date Lina Mcadams MD [address] [place] [address] PCP - General 01/14/18 11/21/18 Deacon Eisenberg DO [address] [place] [address] PCP - General 11/22/18 02/22/20 Perry Romero MD [address] [address] PCP - General Internal Medicine 02/23/20 Leonidas Carroll MD [address] [place] [address] Nursing Tech Cardiology 05/23/19 Love Jones, PT Physical Therapist Physical Therapy 09/28/22 Arthur Bateman MD [address] [address] Referring Physician Anesthesiology 09/28/22 Karl Cha MD [facility] [place] [address] Referring Physician Orthopedic Surgery 11/24/23 documented as of this encounter
--- OUTSIDE RECORDS SUMMARY | 2025-01-11 09:40 | XMS_ITS | Encounter Summary ---
Author Organization [facility] Address [address] [place] [address] Phone Care Team Providers Care Log Operations Coordinator Name Role Phone Leonidas Carroll MD Unavailable [phone] Perry Romero MD Primary Care Provider [phone] Love Jones PT Unavailable Unavailab Arthur Law MD Unavailable Karl Cha MD Unavailable [phone] Encounter Details Date Type Department Care Team (Late st Contact Info) Description 12/18/2024 Results Follow-Up [facility] Cardiology [address] [facility] Advanced Medicine 8th [place] [address] [place] [address] Nandini Avalos RN Basic metabolic panel, eGFR Social History Tobacco Use Types Packs/Day Years Used Date Smoking Tobacco: Former Cigarettes 07 11 1 975 - 2002 Passive Smoke Exposure: [...] week 05/02/2021 How often do you attend [facility] or caodaism services? 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 Author CCM Chronic Pain Care Plan Chronic Care Management Worsening( 1:54 PM CDT) Brissa Pate, RN Note: Problem: Chronic Pain Goals: 1. Minimize further functional decline 2. Maximize quality of life 3. Control pain Strategies: - Activity/exercise program recommendation - Conservative stepwise pain medicine strategy with multi-disciplinary approach - Recommend healthy lifestyle strategies and compensatory methods as needed documented as of this encounter Visit Diagnoses Not on filedocumented in this encounter Care Teams Log Operations Coordinator Relationship Specialty Start Date End Date Perry Romero MD PCP - General Internal Medicine 02/23/20 Leonidas Carroll MD Retention Manager Cardiology 05/23/19 Love Jones, PT Physical Therapist Physical Therapy 09/28/22 Arthur Bateman MD [address] [address] Referring Physician Anesthesiology 09/28/22 Karl Cah MD [address] [place] [address] Referring Physician Orthopedic Surgery 11/24/23 documented as of this encounter
--- OUTSIDE RECORDS SUMMARY | 2025-01-11 09:40 | XMS_ITS | Encounter Summary ---
Author Organization [facility] Address [address] [place] [address] Phone Care Team Providers Care Assistant Oceanographer Name Role Phone Tim Sanchez MD Primary Care Provider [phone] Lina Mcadams MD Primary Care Provide r Deacon Eisenberg DO Primary Care Provider [phone] Leonidas Carroll MD Unavailable [phone] Perry Romero MD Primary Care Provider [phone] Love Jones PT Unavailable Unavailab Arthur Law MD Unavailable Karl Cha MD Unavailable [phone] Encounter Details Date Type Department Care Team (Late st Contact Info) Description 09/10/2015 Orders Only [facility] CAR [facility]INCON[facility] ProviderHeena MD [address] [place] [address] Social History Tobacco Use Types Packs/Day Years Used Date Smoking Tobacco: Never Assessed Sex and Gender Information Value Date Recorded Sex Assigned at Not on file 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 Gender Identity Not on file Sexual Orientation [...] filedocumented in this encounter Care Teams Assistant Oceanographer Relationship Specialty Start Date End Date Tim Sanchez MD [address] [facility] [address] [place] [address] PCP - General 09/29/16 01/13/18 Lina Mcadams MD [address] [facility] [address] [place] [address] PCP - General 01/14/18 11/21/18 Deacon Eisenberg DO [address] [facility] [address] [place] [address] PCP - General 11/22/18 02/22/20 Perry Romero MD [address] [address] PCP - General Internal Medicine 02/23/20 Leonidas Carroll MD [address] [facility] [address] [place] [address] Temple Meat Cutter Cardiology 05/23/19 Love Jones, PT Physical Therapist Physical Therapy 09/28/22 Arthur Bateman MD [address] [facility] [address] [place] [address] Referring Physician Anesthesiology 09/28/22 Karl Cha MD [address] [facility] [address] [place] [address] Referring Physician Orthopedic Surgery 11/24/23 documented as of this encounter
--- OUTSIDE RECORDS SUMMARY | 2025-01-11 09:40 | XMS_ITS | Encounter Summary ---
Author Organization [facility] Address [address] [place] [address] Phone Care Team Providers Care Medical Assistant Prn Name Role Phone Lina Mcadams MD Primary Care Provide r Deacon Eisenberg DO Primary Care Provider [phone] Leonidas Carroll MD Unavailable [phone] Perry Romero MD Primary Care Provider [phone] Love Jones PT Unavailable Unavailab Arthur Law MD Unavailable Karl Cha MD Unavailable [phone] Encounter Details Date Type Department Care Team (Late st Contact Info) Description 01/25/2018 Telephone [facility] Cardiology [address] [facility] Advanced Medicine 8th [place] [address] [place] [address] Leonidas Carroll MD [address] 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 Gender Identity Not on file Sexual Orientation Not on file documented as of this encounter Plan of Treatment Not on file documented as of this encounter Visit Diagnoses Not on filedocumented in this encounter Care Teams Medical Assistant Prn Relationship Specialty Start Date End Date Lina Mcadams MD [address] [place] [address] PCP - General 01/14/18 11/21/18 Deacon Eisenberg DO [address] [place] [address] PCP - General 11/22/18 02/22/20 Perry Romero MD [address] [place] [address] PCP - General Internal Medicine 02/23/20 Leonidas Carroll MD [address] [place] [address] Process Steward Cardiology 05/23/19 Love Jones, PT Physical Therapist Physical Therapy 09/28/22 Arthur Bateman MD [address] [address] Referring Physician Anesthesiology 09/28/22 Karl Cha MD [address] [place] [address] Referring Physician Orthopedic Surgery 11/24/23 documented as of this encounter
--- OUTSIDE RECORDS SUMMARY | 2025-01-11 09:40 | XMS_ITS | Clinical Summary ---
Author Organization [facility] Address [address] [place] [address] Care Team Providers Care Volunteer Assistant Name Role Phone Rigo Carroll MD Unavailable [phone] Perry Romero MD Primary Care Provider [phone] Love Jones PT Unavailable Unavailab Arthur Law MD Unavailable Karl Cha MD Unavailable [phone] Allergies Active Allergy Reactions Criticality Noted Date Comments Riubrab-Zfq-Dgg Reductase Inhibitors Other (See comments) Low 05/03/2024 Pt has an intolerance to statin drugs. Dr. Carroll's office put this in pt said/ reaction unknown Medications ezetimibe (ZETIA) 10 mg tablet TAKE 1 TABLET(10 MG) BY MOUTH EVERY NIGHT 90 tablet 3 024 Active Additional Information Patient taking differently:10 mg oral Nightly,Indications: hypercholesterolemia, hyperlipidemia, Informant: Self, Reported on 12/08/2024 metFORMIN (GLUCOPHAGE) 1,000 mg tablet TAKE 1 TABLET(1000 MG) BY MOUTH DAILY WITH BREAKFAST 90 tablet 3 Active Additional Information Patient taking differently: 1,000 mg oral Daily with breakfast, Indications: type 2 diabetes mellitus, Informant: Self, Reported on 12/08/2024 busPIRone (BUSPAR) 30 mg tabletIndications:G eneralized Anxiety Disorder Take 1 tablet (30 mg total) by mouth 2 (two) times a day Active nitroglycerin (NITROSTAT) 0.[address] 1 tablet (0.4 mg total) under the tongue every 5 (five) minutes as needed for chest pain May repeat dose q 5 min, up to 3 doses total 25 tablet 3 024 2024 Active Additional Information Patient taking differently:0.4 mg sublingual Every 5 min PRN, chest pain,May repeat dose q 5 min, up to 3 doses ; Last used middle of last year 2023, Indications: acute episode of anginal pain, acute myocardial infarction, Informant: Self, Reported on 12/08/2024 aspirin 81 mg chewable tablet Take 1 tablet (81 mg total) by mouth daily 30 tablet 11 024 2024 Active Additional Information Patient taking differently:81 mg oralEvery morning, Informant: Self, Reported on 12/08/2024 meloxicam (MOBIC) 7.5 mg tabletIndications:P ain Take 1 tablet (7.5 mg total) by mouth daily 30 tablet Active Additional Information Patient taking differently:7.5 mg oralEvery morning, Indications: Osteoarthritis, Pain, Informant: Self, Reported on 12/06/2024 traMADoL (ULTRAM) 50 mg tabletIndications:E ncounter for other specified surgical aftercare Take 1 tablet (50 mg total) by mouth every 6 (six) hours as needed for pain 30 tablet Active Additional Information Patient not taking.Reported on 12/21/[address] (PROTONIX) 40 mg EC tablet TAKE 1 TABLET(40 MG) BY MOUTH DAILY 90 tablet 2 Active finasteride (PROSCAR) 5 mg tabletIndications:b enign prostatic hyperplasia with lower urinary tract sx Take 1 tablet (5 mg total) by mouth weight training instructor before breakfast 90 tablet 3 025 Active clopidogreL (PLAVIX) 75 mg tablet TAKE 1 TABLET(75 MG) BY MOUTH DAILY 90 tablet 3 025 Active Additional Information Patient taking differently:75 mg oralEvery morning, Indications: Myocardial Reinfarction Prevention, atrial fibrillation, Heart Stents, Informant: Self, Reported on 12/08/2024 escitalopram (LEXAPRO) 20 mg tabletIndications:A nxiety with Depression Take 1 tablet (20 mg total) by mouth 2 (two) times a day Active hydrOXYzine (ATARAX) 10 mg tabletIndications:a nxiety Take 1 tablet (10 mg total) by mouth daily Active metoprolol XL (TOPROL-XL) 25 mg extended release tablet Take 1 tablet (25 mg total) by mouth daily 30 tablet 11 2025 Active Additional Information Patient taking differently:25 mg oralEvery morning, Indications: chronic heart failure, coronary artery disease, hypertension, Informant: Self, Reported on 12/08/2024 empagliflozin (JARDIANCE) 10 mg tablet Take 1 tablet (10 mg total) by mouth daily 30 tablet 11 Active Additional Information Patient taking differently:10 mg oralEvery morning, Indications: Heart Failure, type 2 diabetes mellitus, Informant: Self, Reported on 12/08/2024 amLODIPine (NORVASC) 2.5 mg tablet TAKE 1 TABLET(2.5 MG) BY MOUTH DAILY 90 tablet 3 Active Additional Information Patient taking differently:2.5 mg oralEvery morning, Indications: hypertension, Informant: Self, Reported on 12/08/2024 sacubitriL-valsarta n (ENTRESTO) 24-26 mg tabletIndications:c hronic heart failure Take 1 tablet by mouth 2 (two) times a day 60 tablet Active fenofibrate nanocrystallized (TRICOR) 145 mg tablet Take 1 tablet (145 mg total) by mouth daily 90 tablet 2025 Active Additional Information Patient taking differently:145 mg oralEvery morning, Indications: hypercholesterolemia, hyperlipidemia, Informant: Self, Reported on 12/08/2024 traZODone (DESYREL) 50 mg tablet Take 1 tablet (50 mg total) by mouth nightly as needed Active omega-3 fatty acids-fish oil 300-1,000 mg capsuleIndications: Heart Health support Take 1 capsule (1 g total) by mouth every morning Active antiox #8/om3/dha/epa/lut/ zeax (PRESERVISION AREDS 2, OMEGA-3, ORAL)Indications:EY E HEALTH SUPPORT Take 1 tablet by mouth 2 (two) times a day Active prednisoLONE acetate (PRED FORTE) 1 % ophthalmic suspension Administer 1 drop into the right eye 4 (four) times a day Use as instructed 5 mL 1 025 Active nitrofurantoin monohydrate (MACROBID) 100 mg capsule Take 1 capsule (100 mg total) by mouth 2 (two) times a day Active tamsulosin (FLOMAX) 0.4 mg extended release capsuleIndications: Nocturia Take 1 capsule (0.4 mg total) by mouth daily 30 capsule 11 021 2021 Discontinued prednisoLONE acetate (PRED FORTE) 1 % ophthalmic suspension Administer 1 drop into the right eye 4 (four) times a day 5 mL 1 025 2024 Discontinued moxifloxacin (VIGAMOX) 0.5 % ophthalmic solution Administer 1 drop into the right eye 4 (four) times a day 3 mL 025 2024 Discontinued dorzolamide-timoloL (COSOPT) 22.3-6.8 mg/mL ophthalmic solutionIndications :Pseudophakia of right eye Administer 1 drop into both eyes 2 (two) times a day 10 mL 11 025 2024 Discontinued moxifloxacin (VIGAMOX) 0.5 % ophthalmic solution Administer 1 drop into the right eye 2 (two) times a day for 3 days 3 mL 025 2024 Active Problems Problem Noted Date Diagnosed Date Nuclear sclerotic cataract of left eye Assessment & Plan (12/10/2024 6:35 PM CDT): - Interested in cataract eval, will refer to Pre-op clinic next available Ischemic cardiomyopathy 11/18/2024 Greater trochanteric bursitis of both hips 08/10 Tensor fascia shorty syndrome 08/10/2024 Osteoarthritis of left knee, unspecified osteoarthritis type 04/24/2024 Primary osteoarthritis of left knee 02/18/2024 Generalized anxiety disorder 10/13/2023 Recurrent major depression 10/13/2023 Dysthymia 10/13/2023 Arthralgia of both knees 07/07/2023 Chronic midline low back pain without sciatica 0 06/17/2023 Assessment & Plan (06/17/2023 10:00 AM METAL DIE FINISHER): Continue flexeril 10mg Q8 PRN Trial gabapentin 100mg Q8 TID Topical lidocaine patches 4%, on for 12 hours/off for 12 hours Will send [place] 5/325 PRN #28, discussed that this will [...] chronic kidney disease 07/21/2021 Assessment & Plan (12/21/2024 3:49 PM CDT): Stable at this time Assessment & Plan (07/21/2021 9:52 AM METAL DIE FINISHER): Baseline creatine 1.3-1.5 Creatine Within patient;s baseline at 1.3 CTM Received IV fluids 500 ml on admission for creatine 1.59 Statin intolerance 07/18/2021 Assessment & Plan (07/18/2021 3:39 PM METAL DIE FINISHER): History of statin intolerance -Continue ezetimibe and fenofibrate BPH (benign prostatic hyperplasia) 07/18/2021 Assessment & Plan (07/18/2021 3:59 PM METAL DIE FINISHER): BPH s/p TURP -Continue home finasteride and tamsulosin HLD (hyperlipidemia) 07/18/2021 Assessment & Plan (12/21/2024 3:49 PM CDT): Lipid doing well Assessment & Plan (10/11/2024 11:06 AM CDT): Recommend statin therapy. Assessment & Plan (09/15/2024 10:52 AM CDT): Stable continue Zetia Assessment & Plan (08/31/2024 1:57 PM CDT): Impression: Chronic stable. Plan: Continue Zetia, fenofibrate Assessment & Plan (07/21/2021 8:10 AM METAL DIE FINISHER): LDL ok while on non-statins due to intolerance. Continue present Rx for now Assessment & Plan (07/20/2021 8:10 AM METAL DIE FINISHER): LDL ok while on non-statins due to intolerance. Continue present Rx for now Assessment & Plan (07/19/2021 7:57 AM METAL DIE FINISHER): LDL ok while on non-statins due to intolerance. Continue present Rx for now Assessment & Plan (07/18/2021 3:52 PM METAL DIE FINISHER): Lipid panel WNL -Continue ezetimibe and fenofibrate [...] 07/18/19 Assessment & Plan (07/18/2021 4:00 PM METAL DIE FINISHER): PVOD s/p bilateral iliac stents Unstable angina 07/18/2021 Overview (07/18/2021): Added automatically from request for surgery [id number] Assessment & Plan (07/21/2021 8:10 AM METAL DIE FINISHER): CP concerning for [place]. troponins normal, ruled out for TN. I have recommended coronary angiography and this is scheduled for today. Pt has PAD Continue IV heparin, follow labs and adjust. Continue aspirin, plavix, beta carrie, Patient asymptomatic. Cardiac catheterization scheduled for tomorrow. NPO after midnight. Assessment & Plan (07/20/2021 8:10 AM METAL DIE FINISHER): CP concerning for USA. troponins normal, ruled out for TN. I have recommended coronary angiography and this is scheduled for Wednesday. Pt has PAD and radial approach may be preferred. Continue IV heparin, follow labs and adjust. Continue aspirin, plavix, beta carrie, Patient asymptomatic. Cardiac catheterization scheduled for tomorrow. NPO after midnight. Assessment & Plan (07/19/2021 7:56 AM METAL DIE FINISHER): CP concerning for [place]. troponins normal, ruled out for TN. Brief left sided chest pain since admission. [...] (03/06/2021): Added automatically from request for surgery [id number] Presbyopia 02/03/2021 Assessment & Plan (08/12/2023 5:06 PM METAL DIE FINISHER): -Noting increased difficulty with near vision while reading -Recommended trialing higher power reading glasses Assessment & Plan (02/03/2021 2:44 PM CDT): Correctable to 20/25 right eye (OD) and left eye (OS). Update specs as desired. Rosacea 09/18/2020 Metatarsalgia of right foot 07/04/2020 Overview (07/04/2020): Added automatically from request for surgery [id number] Sesamoiditis 07/04/2020 Overview (07/04/2020): Added automatically from request for surgery [id number] Painful orthopaedic hardware 07/04/2020 Overview (07/04/2020): Added automatically from request for surgery [id number] Achilles tendon contracture, right 07/04/2020 Overview (07/04/2020): Added automatically from request for surgery [id number] Pseudarthrosis after fusion or arthrodesis 02/28 Overview (02/28/2019): Added automatically from request for surgery [id number] Diabetes mellitus type 2 without retinopathy 05/2019 Assessment & Plan (12/10/2024 6:36 PM CDT): - Continue good BP/BG control Assessment & Plan (02/09/2023 3:33 PM CDT): Continue strict BS control, annual dilated eye exams. Assessment & Plan (06/17/2022 4:09 PM METAL DIE FINISHER): Continue strict BS control, annual dilated eye exams. Assessment & Plan (02/23/2019 10:32 AM CDT): Strict BS control, annual dilated eye exams. 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), bilateral 11/14/2018 Assessment & Plan (12/10/2024 6:34 PM CDT): - Follow up exam for AMD - Exam remains stable with drusen OU but no sign of conversion to wet AMD - Continue use of AREDS/Amsler - Patient had questions about Syfovre, discussed that this treatment is primarily for geographic atrophy which he does not yet have; however we could refer to another Retina specialist who performs Syfovre injections if he desires a second opinion - Continue AREDS2 and regular Amsler grid screening - Refer for cataract eval, see separate problem Assessment & Plan (10/29/2024 8:35 PM CDT): -Follow up exam for AMD; last visit 08/12/2023 -Exam remains stable with drusen OU -Continue use of AREDS/Amsler -Patient prefers to maintain 6 month follow up interval -Patient had questions about Syfovre, gave TRI number to discuss as we do not offer -RTC 6 months Assessment & Plan (08/12/2023 5:05 PM METAL DIE FINISHER): -Follow up exam for AMD; last visit [...] 6months Assessment & Plan (06/17/2022 9:41 AM METAL DIE FINISHER): -No signs of exudation. -given the large [...] months Assessment & Plan (08/13/2021 3:12 PM METAL DIE FINISHER): No signs of exudation. Per AREDS study, [...] today on exam and by OCT C/w AREBrianne PRICEler. Continue to not smoke. Use sun protection F/u 6 mo, sooner if changes Discussed with patient that it is difficult to predict vision loss, but good vision now and taking appropriate precautions. Pseudophakia of right eye 11/14/2018 Overview (12/08/2024): S/p CEIOL OD 12/08/2024 (Bligard) with DIB00 +19.5. Main wound was closed with a 10-0 vicryl suture. History of intermediate dry AMD and diabetes without retinopathy. Trace guttae noted on pre-op exam. Assessment & Plan (01/02/2025 11:52 AM CDT): POW3.5 Extraction Cataract With Lens Implant. - Right Doing well Today VA 20/60 however without macular edema on OCT and refracts to 20/30. Patient also declines subjective worsening of vision. Suspect difficulty with pinhole and/or some astigmatism from temporal suture in place. IOP wnl Suture removed today PLAN Moxi BID x 3 days OD Lubricating ointment PRN Stop Cosopt Pt prefers to follow up 2 weeks anterior check (though will obtain MRx elsewhere) Assessment & Plan (12/14/2024 6:53 AM CDT): POW1 Extraction Cataract With Lens Implant. - Right Doing well VA ph 20/30 OCT mac without CME; with some peripheral atrophy and outer retinal changes iso AMD - may limit visual potential IOP wnl on Cosopt. Postoperative instructions were given. The patient is to Stop Moxifloxacin Continue Prednisolone Acetate 1% QID for one more week, then taper 3--2-1-off qweek Continue Cosopt BID Signs, symptoms of retinal detachment, tear, hole, and endophthalmitis were reviewed and the patient is to call immediately for concerns. We discussed that things should improve until they stabilize. Should there be any worsening of pain, vision, or redness the patient is to call. Follow up 3 weeks for POM1 check with DFEx OD, MRx Assessment & Plan (12/09/2024 7:11 AM CDT): POD1 Extraction Cataract With Lens Implant. - Right IOP elevated but otherwise doing well. Burped paracentesis at slit lamp with improvement in IOP to 25. Will start Cosopt BID until POW1. Postoperative instructions were given. The patient is to use: Moxifloxacin QID X 1 week Prednisolone Acetate 1% QID Cosopt BID Patient is to wear the shield at bedtime X 1 week. Signs, symptoms of retinal detachment, tear, hole, and endophthalmitis were reviewed and the patient is to call immediately for concerns. We discussed that things should improve until they stabilize. Should there be any worsening of pain, vision, or redness the patient is to call. Follow up 1 week as scheduled or sooner for concerns. Assessment & Plan (12/04/2024 11:41 AM CDT): Cataract Pre-Op Note HPI: Vicky Youssef is a 69 y.o. y/o male who presents for cataract evaluation. He has noticed progressive loss of vision over the last few years in both eyes, and feels that surgery would help enhance his vision & quality of life. Ocular ROS: Glare Yes Halos Yes Trouble driving Yes Trouble reading Yes All other ROS negative unless noted in HPI. Active ocular issues: Diabetes without retinopathy Intermediate dry AMD Ocular History: Amblyopia No Vitrectomy No Scleral buckle No Intravitreal Injections No Laser refractive surgery No History of ocular trauma No History of eye infection No Medical History: Past Medical History: Diagnosis Date Anxiety Aortic stenosis Atrial fibrillation ([facility]) Chronic pain disorder Depression Diabetes mellitus ([facility]) Encounter for immunization Need for prophylactic vaccination and inoculation against influenza - Vaccines Prophylactic Need Against Influenza (Added by TW Conv) Fibula fracture Foot pain Fracture, fibula Heart attack ([facility]) Heart failure ([facility]) Hyperlipidemia Hypertension Low back pain Macular degeneration Panic attack Poor circulation Sleep apnea needs a new machine SSS (sick sinus syndrome) ([facility]) Type 2 diabetes mellitus ([facility]) CHF but patient states his most recent EF was 37%. Medical ROS: Angina present? No Cough or orthopnea? No Dyspnea on exertion? No Has sleep apnea/wears CPAP? No Patient is able to lie flat for at least 1 hour YES Current medications: Systemic medications per EMR Flomax/Hytrin Yes Coumadin/Plavix Yes on DAPT Allergies: Allergies Allergen Reactions Dkoufqj-Gzc-Aqj Reductase Inhibitors Other (See comments) Pt has an intolerance to statin drugs. Latex allergy: No Cataract specific exam findings: Prominent brow No Dense arcus No K spindle No [place] +Trace PXE material No TIDs No Phacodonesis No Posterior synechiae No L/I step off No Mature/white No Dominant Eye: the left eye Dilates to: OD 6.5 mm OS 6.5 mm Tolerance of gonioscopy: good Assessment and Plan 1. Visually Significant Cataract of BOTH EYES - Patient interested in having CE/IOL of the right eye - R/B/A of surgery discussed in detail with patient including but not limited to infection, bleeding, persistent inflammation, retinal tear or detachment, diplopia, ptosis, macular edema, intraocular pressure abnormalities, need for further surgeries or procedures, need for spectacle correction after surgery, possible loss of vision, possible loss of the eye, and risks of anesthesia. - Additional risks discussed included the fact that AMD will limit his ultimate visual acuity, and I cannot guarantee that he will actually achieve any improvement in objective vision following surgery as the AMD may be the primary factor limiting his vision. - The patient understands these risks and wishes to proceed. - Target refraction was discussed with the patient. We discussed near, distance, and monovision; we also discussed multifocal and toric lenses. The patient elected to target [place] with monofocal lens - Best phone number at which to reach patient: [phone] Planned Operation: CE/IOL of right eye Time: 30 min Anesthesia: MAC Local: Topical Special equipment: NONE 23 Hr Stay?: No Preop meds: None Med Clearance: TPAP Needs POD 2?:: No IOL Master: done today Additional perioperative testing/procedure needed?: none Assessment & Plan (11/22/2024 11:03 AM CDT): Interested in evaluation for CEIOL, will refer to [facility] pre-op. Assessment & Plan (10/29/2024 8:35 PM CDT): NVS, follow. Assessment & Plan (06/17/2022 4:09 PM METAL DIE FINISHER): NVS, follow. Assessment & Plan (02/23/2019 10:32 [...] (06/08/2018): Added automatically from request for surgery [id number] Palpitations 04/15/2018 CAD (coronary artery disease) 03/08/2018 Assessment & Plan (12/21/2024 3:49 PM CDT): No chest pain Assessment & Plan (09/04/2024 11:21 AM CDT): stable Assessment & Plan (07/18/2021 3:42 PM METAL DIE FINISHER): CAD s/p CABG in 2010 (KAUR-LAD which is known to be an atretic graft; vein graft-marginal; and vein graft-2nd marginal branch; RCA occluded, with collateral revascularization) -Last [facility] in 11/2018 showed patent KAUR graft [...] Diabetes mellitus type II, non insulin dependent ([facility]) 01/15/2018 Assessment & Plan (12/21/2024 3:49 PM CDT): A1c excellent 5.9 Assessment & Plan (12/04/2024 8:09 AM CDT): >>ASSESSMENT AND PLAN FOR DM2 (DIABETES MELLITUS, TYPE 2) ([facility]) WRITTEN ON 07/18/2021 3:41 PM BY LAY WELDON NP -Hemoglobin A1c 6.1 -Hold home metformin while inpatient -SSI while admitted -Carb consistent diet -Accuchecks Assessment & Plan (12/04/2024 8:09 AM CDT): >>ASSESSMENT AND PLAN FOR DM2 (DIABETES MELLITUS, TYPE 2) ([facility]) WRITTEN ON 07/19/2021 7:58 AM BY RIGO CARROLL MD Follow glucose and rx with insulin Metformin held for now pending cath. Assessment & Plan (09/04/2024 11:21 AM CDT): Stable and doing well Assessment & Plan (07/21/2021 9:50 AM METAL DIE FINISHER): Hemoglobin a1c 6.1 - diet controlled for now Metformin on hold for [facility] Continue to monitor. Assessment & Plan (07/20/2021 8:11 AM METAL DIE FINISHER): Blood sugar stable. Follow-up blood sugar. Treat with insulin as appropriate Metformin being held. Assessment & Plan (02/28/2020 3:23 PM CDT): a1c at target, recommend annual eye exam. Feet are without lesions. Assessment & Plan (11/22/2018 4:43 PM CDT): On metformin 1000mg BID at home -LDSSI Assessment & Plan (11/14/2018 1:46 PM CDT): No METAL PATTERNMAKER Last A1C was 01/2018 but at goal at 6.0% C/w medical management, control BP Annual DFE Assessment & Plan (01/15/2018 4:51 AM CDT): Check A1c. Hold metformin. Low-dose sliding scale. Primary hypertension 01/15/2018 Assessment & Plan (12/21/2024 3:49 PM CDT): BP at target Assessment & Plan (10/11/2024 11:06 AM CDT): Stable continue metoprolol Assessment & Plan (09/15/2024 10:52 AM CDT): Stable continue lisinopril Assessment & Plan (09/04/2024 11:21 AM CDT): Bp at target Assessment & Plan (08/31/2024 1:58 PM CDT): Impression: Chronic stable. Plan: Continue amlodipine lisinopril metoprolol Assessment & Plan (07/18/2021 3:53 PM METAL DIE FINISHER): BP currently well controlled -Continue amlodipine, lisinopril [...] 09/15/2016 Assessment & Plan (07/18/2021 4:06 PM METAL DIE FINISHER): -Continue metoprolol XL -Telemetry Assessment & Plan [...] stable Assessment & Plan (07/21/2021 8:10 AM METAL DIE FINISHER): Pacer function stable Continue present Rx. Continue beta-carrie. Assessment & Plan (07/20/2021 8:10 AM METAL DIE FINISHER): Pacer function stable Continue present Rx. Continue beta-carrie. 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 Maty Weber Assessment & Plan (02/28/2020 3:23 PM CDT): No palpitations, syncope Depressive disorder 03/15/2015 Panic disorder without agoraphobia 03/15/2015 Resolved Problems Problem Noted Date Diagnosed Date Resolved Date Pain in right foot 04/24/2022 LINUS (acute kidney injury) 07/18/2021 Assessment & Plan (07/21/2021 8:12 AM METAL DIE FINISHER): Pt with CKDstage 3, CrCl 50 ml/min. Creatinine improved. Cath today Assessment & Plan (07/20/2021 8:11 AM METAL DIE FINISHER): Pt with CKDstage 3, CrCl 50 ml/min. Repeat BMP today. IV hydration Mikal night before cath recommended. Assessment & Plan (07/19/2021 7:59 AM METAL DIE FINISHER): Pt with CKDstage 3, CrCl 50 ml/min. Stable. IV hydration Mikal night before cath recommended. Assessment & Plan (07/18/2021 3:44 PM METAL DIE FINISHER): LINUS (Cr 1.59 on admission) on CKD (baseline Cr 1.0-1.2) -S/p 500 ml LR bolus in ED -Follow BMPs Statin intolerance 02/10/2021 4 Syncope and collapse 12/30/2020 024 Encounter for screening colonoscopy 10/14/2020 06/17/2023 Overview (10/14/2020): Added automatically from request for surgery [id number] Joint pain 02/28/2020 06/17/2023 Assessment & Plan (04/29/2020 10:45 AM METAL DIE FINISHER): Medrol dose pack Tramadol Q6 PRN (use, safety, s/e reviewed) Referral to Pain Management Assessment & Plan (02/28/2020 3:25 PM CDT): xrays noted, check rheum panel (? H/o pos JENNIFER) Confusion 01/04/2019 06/17/2023 Chest pain 01/15/2018 06/17/2023 Assessment & Plan (07/21/2021 9:47 AM METAL DIE FINISHER): CAD s/p CABG (2010), admitted with chest [...] Encounters Date Type Department Care Team Description 01/10/2025 Telephone [facility] [place] [facility] [address] [place] [address] [facility] [address] [place] [address] Arthur Bateman MD PM[facility] Preprocedure; Anticoagulation 01/06/2025 Orders Only [facility] [address] [facility] [address] [place] [id number] Maty Weber MD 01/03/2025 Telephone [facility] [address] [place] [id number] [address] [place] [address] Perry Romero MD request for referral 01/02/2025 10:30 AM CDT Office Visit [facility] Ophthalmology [address] [facility] 1st [place] [phone] Pseudophakia of right eye (Primary Dx) 12/22/2024 Telephone [facility] Ophthalmology [address] [place] [phone] Geoffrey Ramon MD PhD Post op questions 12/21/2024 3:15 PM CDT Office Visit [facility] [address] [place] [address] [address] [place] [address] Perry Romero MD Diabetes mellitus type II, non insulin dependent (HCC) (Primary Dx); Primary hypertension; Mixed hyperlipidemia; Stage 3a chronic kidney disease (HCC); Coronary artery disease involving tunica-biloxi heart without angina pectoris, unspecified vessel or lesion type 12/18/2024 Results Follow-Up [facility] Cardiology [address] [facility] [place] Advanced Medicine 8th [place] [address] [place] [address] Nandini Avalos RN Basic metabolic panel, eGFR 12/14/2024 9:15 AM CDT Lab [facility] Outpatient Lab at [address] [phone] 12/14/2024 9:13 AM CDT - 12/14/2024 11:59 PM CDT Hospital Encounter [address] [address] High risk medications (not anticoagulants) long-term use Discharge Disposition: Discharge to home or self care 12/13/2024 10:00 AM CDT Office Visit [facility] Ophthalmology [address] [place] [phone] Pseudophakia of right eye (Primary Dx) 12/09/2024 7:15 AM CDT Office Visit [facility] Ophthalmology [address] [place] [phone] Pseudophakia of right eye (Primary Dx) 12/08/2024 2:10 PM CDT - 12/08/2024 3:[address] [facility] Operating [facility] [address] [place] [address] Jaime Fuchs MD EXTRACTION CATARACT WITH LENS IMPLANT. [88308 (CPT )] 12/08/2024 1:21 PM CD[address] An[address] Event [facility] Operating Room [facility] [address] [place] [address] Tonya Castillo MD Heuvelman, Katherine Marie, NP 12/08/2024 12:34 PM CDT - 12/08/2024 3:16 PM CDT Hospital Encounter [facility] Operating Room [facility] [address] [place] [phone] Jaime Fuchs MD Nuclear sclerotic cataract of both eyes [H25.13] (Primary Dx) Discharge Disposition: Discharge to home or self care 12/05/2024 Telephone [facility] Ophthalmology [address] [address] Geoffrey Ramon MD PhD Scheduling Appointments (CEIOL OD) 12/04/2024 10:00 AM CDT Office Visit [facility] Ophthalmology [address] [address] Age-related nuclear cataract of both eyes (Primary Dx) 12/01/2024 Orders Only [facility] [address] [place] [address] [address] [place] [address] Perry Romero MD 11/30/2024 Telephone [facility] at [facility] [address] [place] [address] Advanced Medicine [address] [place] [address] Arthur Bateman MD Anticoagulation 11/29/2024 1:46 PM CDT - 11/29/2024 11:59 PM CDT Hospital Encounter [facility] [address] [place] [address] Advanced Medicine [address] [place] [address] Arthur Bateman MD Right foot pain (Primary Dx); Left knee pain, unspecified chronicity; Spondylosis of lumbar region without myelopathy or radiculopathy Discharge Disposition: Discharge to home or self care 11/29/2024 Orders Only [facility] [address] [place] [address] [address] [place] [address] Perry Romero MD 11/25/2024 Orders Only [facility] [address] [place] [address] [address] [place] [address] Perry Romero MD 11/21/[address] [facility] Clinical Trial 1 [facility] [place] [address] Bebe Tinajero BS 11/21/2024 Telephone [facility] Cardiology [facility] 8th [place] [address] [place] [address] Rigo Carroll MD 11/20/2024 3:00 PM CDT Office Visit [facility] Cardiology [address] [place] [address] 8th [place] [address] [place] [address] Rigo Carroll MD Coronary artery disease involving tunica-biloxi coronary artery of tunica-biloxi heart without angina pectoris (Primary Dx); Nonrheumatic mitral (valve) insufficiency; Presence of cardiac pacemaker; Ischemic cardiomyopathy 11/18/2024 Results Follow-Up [facility] [address] [place] [address] 8th [place] [address] [place] [address] Rigo aCrroll MD Basic metabolic panel, eGFR 11/17/2024 9:00 AM CDT Lab [facility] Outpatient Lab at [address] [phone] Polypharmacy (Primary Dx) 11/17/2024 8:52 AM CDT - 11/17/2024 11:59 PM CDT Hospital Encounter [address] [address] High risk medications (not anticoagulants) long-term use Discharge Disposition: Discharge to home or self care 11/17/2024 Orders Only [facility] Orthopaedic Surgery [address] [place] [address] 6th [place] [address] [place] [address] Sudhir Martinez MD Greater trochanteric pain syndrome of right lower extremity (Primary Dx); Chronic right hip pain 11/12/2024 Orders Only [facility] [address] [facility] [address] [place] [address] Perry Romero MD 11/08/2024 Orders Only [facility] Cardiology [address] [place] [address] 8th [place] [address] [place] [address] Rigo Carroll MD High risk medications (not anticoagulants) long-term use (Primary Dx) 11/08/2024 Orders Only [facility] [address] [place] [address] [address] [place] [address] Perry Romero MD 11/07/2024 Orders Only [facility] [address] [place] [address] [address] [place] [address] Perry Romero MD 11/03/2024 Orders Only [facility] [address] [place] [address] [address] [place] [address] Perry Romero MD 11/02/2024 Orders Only [facility] CARDIOLOGY Scanning, Provider Nonrheumatic mitral (valve) insufficiency (Primary Dx) 11/02/2024 Orders Only [facility] [address] [place] [address] [address] [place] [address] Perry Romero MD 11/01/2024 Telephone [facility] Cardiology [address] [place] [address] 8th [place] [address] [place] [address] Rigo Carroll MD 10/31/2024 Orders Only [facility] [address] [place] [address] [address] [place] [address] Perry Romero MD 10/25/2024 1:00 PM CDT Office Visit [facility] Orthopaedic Surgery [address] [place] [address] 6th [place] [address] [place] [address] Sudhir Martinez MD Greater trochanteric pain syndrome of right lower extremity (Primary Dx); Chronic right hip pain; Chronic knee pain after total replacement of left knee joint 10/23/2024 Telephone [facility] Cardiology [address] [place] [address] Advanced Medicine 8th [place] [address] [place] [address] Rigo Carroll MD BP updates 10/18/2024 10:15 AM CDT Lab [facility] Outpatient Lab at [address] [phone] Diabetes mellitus type 2 without retinopathy (HCC) (Primary Dx); High risk medications (not anticoagulants) long-term use 10/18/2024 10:10 AM CDT - 10/18/2024 11:59 PM CDT Hospital Encounter [address] [address] High risk medications (not anticoagulants) long-term use Discharge Disposition: Discharge to home or self care 10/18/2024 Results Follow-Up [facility] Cardiology [facility] 8th [place] [address] [place] [address] Rigo Carroll MD Basic metabolic panel, eGFR 10/16/2024 10:45 AM CDT - 10/16/2024 12:[address] [facility] Heart and Vascular [address] [address] Clifford Sandy MD CORONARY ARTERY AND GRAFT ANGIOGRAPHY [address] 10/16/2024 8:28 AM CDT - 10/16/2024 5:00 PM CDT Hospital Encounter [facility] Heart [facility] [address] [address] Clifford Sandy MD Coronary artery disease involving tunica-biloxi heart without angina pectoris, unspecified vessel or lesion type Discharge Disposition: Discharge to home or self care 10/16/2024 Results Follow-Up [facility] Cardiology [facility] 8th [place] [address] [place] [address] Rigo Carroll MD Cardiac Catheterization 10/11/2024 8:45 AM CDT Office Visit [facility] Vascular at [address] [place] [phone] Judah Montana MD Peripheral vascular disease (Primary Dx); Primary hypertension; Mixed hyperlipidemia 10/11/2024 Orders Only [facility] Health Information Management [address] [place] [address] Scanning, Provider 10/11/2024 Orders Only [facility] Vascular at [address] [place] [address] Judah Montana MD Atherosclerosis of tunica-biloxi artery of both lower extremities with intermittent claudication (Primary Dx); Other specified symptoms and signs involving the circulatory and respiratory systems from Last 3 Months Immunizations Immunization Administration [...] 06/13/2003 triple bypass CARDIAC CATHETERIZATION 11/22/2018 positive [place] FOOT SURGERY 06/28/2018 Right right 1st MTP arthrodesis FOOT SURGERY 06/02/2019 Right right first metatarsophalangeal arthrodesis revision surgery removal of deep hardware right great toe iliac crest bone graft - Right CARDIAC PACEMAKER PLACEMENT 04/14/2015 - 05/13/2015 Dual-chamber Biotronik Eluna pacemaker COLONOSCOPY last one 01/01/2021 APPENDECTOMY 06/14/2000 - 06/13/2001 TRANSURETHRAL RESECTION OF PROSTATE 02/23/2020 FOOT SURGERY 07/15/2020 - 08/11/2020 2nd metatarsophalangeal shortening KNEE ARTHROSCOPY CARDIAC CATHETERIZATION 10/16/2024 N/A Procedure: CORONARY ARTERY AND GRAFT ANGIOGRAPHY [id number]; Surgeon: Clifford Sandy MD; 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 Sandy Pt has pacemaker-Dr. Weber DM-on Metformin, will instruct pt to hold night prior and day of Labs done 10/03/2024, in chart Pt will be Medical devices from this surgery are in the Medical Devices section. 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 CATARACT EXTRACTION EXTRACAPSULAR W/ INTRAOCULAR LENS IMPLANTATION 12/08/2024 Eye/Right Procedure: EXTRACTION CATARACT WITH LENS IMPLANT.; Surgeon: Jaime Fuchs MD; Location: [facility] CAM OR POD 4; Service: Ophthalmology; Laterality: Right; Medical devices from this surgery are in [...] Panic attack Chronic pain disorder Sleep apnea Couldn't tolerat e CPAP Hyperlipidemia SSS (sick sinus syndrome) (HCC) Aortic [...] Smoking Tobacco: Former Cigarettes 1 28 2002 Passive Smoke Exposure: Past Smokeless Tobacco: Never Tobacco Cessation:Counseling Given: Not Answered Passive Exposure Comments:parents smoked Alcohol Use Standard Drinks/Week Comments Not [...] often do you attend chur ch or yazidi services? 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 Gender Identity Not on file Sexual Orientation Not on file Obstetrics History Last Filed Vital Signs Vital Sign Reading Time Taken Comments Blood Pressure 98/52 12/21/2024 3:13 PM CDT Pulse 71 12/21/2024 3:13 PM CDT Temperature 36.2 C (97.2 F) 12/08/2024 2:20 PM CDT Respiratory Rate 22 12/08/2024 2:20 PM CDT Oxygen Saturation 98% 12/08/2024 2:20 PM CDT Inhaled Oxygen Concentration - - Weight 98 kg (216 lb) 12/21/2024 3:13 PM CDT Height 180.3 cm (5' 11) 12/21/2024 3:13 PM CDT Body Mass Index 30.13 12/21/2024 3:13 PM CDT Plan of Treatment Health Maintenance Due [...] 09/20/2024 09/21/2023, 07/16, 02/05/2022, Additional history exists Influenza Vaccine (#1) 2025 , 06/03/2019, 08/05/2017 Prostate Cancer Screening-PSA 06/17/2025, 02/05/2022, 01/21/2021 Hemoglobin A1C 06/23/2025 12/21/2024, 2 09/2024, 03/27/2024, Additional history exists Fall Risk Assessment 12/08/2025 12/08/2024 eGFR 12/14/2025 12/14/2024, 06/11/2024, 10/18/2024, Additional history exists Dilated Eye Exam 01/02/2026 01/02/2025, , 10/05/2024, Additional history exists Colon Cancer Screening-Colonoscopy 01/01/2031 01/01/2021 Colon Cancer Screening-CT Colonography Discontinued 01/01/2021 Colon Cancer Screening-DNA Stool Discontinued 01/02/20 Colon Cancer Screening-FIT Discontinued 01/01/2021 Colon Cancer Screening-Sigmoidoscopy Discontinued 01/01/2021 Abdominal Aortic Aneurysm (A AA) Screen Completed 09/27/2023, 03/29/2020 Goals Goal Patient Goal Type Associated Problems [...] as needed Medical Devices Implanted Type Area Tumbler Tender Device Identifier Shelf Expiration Date Model / Serial / Lot [employer] Angio-Seal Vip 6fr Closere Device [id number] - [id number] - [id number] Implanted:Qty: 1 on 11/25/2022 by Eliecer Mixon MD at [facility] Collagen [employer] 06/13/2023 [id number] / [id number] / [id number] [employer] Angio-Seal Vip 6fr Closere Device [id number] - [id number] - [id number] Implanted:Qty: 1 on 10/16/2024 by Clifford Sandy MD at [facility] Collagen Left: Common Femoral Artery [employer] 05/01/2025 [id number] / [id number] / [id number] Lead (Ra)-05/08/2015 Implanted:05/08/2015 by Maty Weber MD (Quantity not on file) Lead Heart Biotronik 350 974 SETROX S 53 / [id number] / Lead (Rv)-05/08/2015 Implanted:05/08/2015 by Maty Weber MD (Quantity not on file) Lead Heart Biotronik 350 975 SETROX S 60 / [id number] / [employer] Lens Venessa Graham Iol [id number] - [id number] - [id number] Implanted:Qty: 1 on 12/08/2024 by Jaime Fuchs MD at [facility] Lens Right: Eye [employer] [id number] 10/04/2027 [id number] / [id number] / 0 Pacemaker-05/08/2015 Implanted:05/08/2015 by Maty Weber MD (Quantity not on file) Pacemaker Left: Chest Biotronik [id number] ELUNA 8 JOVANNI AGUILA / [id number] / Synthes 201.814 2mm 3.5mm 14mm Self Tap Cruciform Cortex Screw Bone Stainless - S0 - [id number] Implanted:Qty: 1 on 08/06/2020 by Zoey Sexton MD at [facility] Screw Synthes I 201.814 / 0 / Medtronic Card Vasc Surgery 4.0 X 26mm [place] Rx Coronary Stent [id number] - [id number] - [id number] Implanted:Qty: 1 on 11/25/2022 by Clifford Sandy MD at [facility] Stent Medtronic Card Vasc Surgery 06/26/2025 [id number] / [id number] / [id number] Orthohelix Dyb-[id number] Maxtorque 4mm 32.5mm Cannulated Self Drill Foot Ankle Long Thread - [id number] Implanted:Qty: 1 on 06/28/2018 at [facility] Right: Foot Orthohelix MSD-010- 40-325L / / Orthohelix Two Needle Machine Operator-002-Pmx Ortholink 3 Hole [place] Foot Ankle Standard Plate Bone Nonsterile Latex Free - [id number] Implanted:Qty: 1 on 06/28/2018 at [facility] Right: Foot Orthohelix PROCESS IMPROVEMENT CONSULTANT-002- PMX / / Orthohelix [id number] Maxlock Extreme 4mm 16mm Nonlock Foot Ankle Screw Bone Nonsterile - [id number] Implanted:Qty: 1 on 06/28/2018 at [facility] Right: Foot Orthohelix PROCESS IMPROVEMENT CONSULTANT-011- 4016 / / Orthohelix Ebh-[id number] Maxlock Extreme 4mm 18mm Nonlock Foot Ankle Screw Bone Nonsterile Latex Free - [id number] Implanted:Qty: 1 on 06/28/2018 at [facility] Right: Foot Orthohelix PROCESS IMPROVEMENT CONSULTANT-011- 40-18 / / Orthohelix [id number] Maxlock Extreme 4mm 14mm Nonlock Foot Ankle Screw Bone Nonsterile Latex Free - [id number] Implanted:Qty: 1 on 06/28/2018 at [facility] Right: Foot Orthohelix PROCESS IMPROVEMENT CONSULTANT-011- 4014 / / Daig [employer] [id number] Angio-Seal Evolution 6fr .035in Guidewire Bypass Tube Suture - [id number] Implanted:Qty: 1 on 11/22/2018 by Sarah Vasquez MD at [facility] [employer]ig Lewis[employer] 08/12/2019 [id number] / / [id number] Medtronic Sofamor D[place] [id number] Infuse 14mm 23mm Absorbable Sponge Sterile Water Syringe Needle - [id number] Implanted:Qty: 1 on 06/02/2019 by Zoey Sexton MD at [facility] Right: Foot Medtronic Inc 01/11/2021 [id number] / / [id number] [employer] [id number] Plate Bone Medline Unite 0 D Medium Metatarsophalangeal Right Fusion Nonsterile - [id number] Implanted:Qty: 1 on 06/02/2019 by Zoey Sexton MD at [facility] Right: Foot [employer] [id number] / / [employer] [id number] Pin Fixation Medline Unite L10mm Od1.1mm - [id number] Implanted:Qty: 1 on 06/02/2019 by Zoey Sexton MD at [facility] Right: Foot [employer] [id number] / / [employer] [id number] Screw Bone Medline Unite L34mm Od4.5mm Head Nonsterile - [id number] Implanted:Qty: 1 on 06/02/2019 by Zoey Sexton MD at [facility] Right: Foot [employer] [id number] / / [employer] [id number] Screw Bone Medline Unite L16mm Od3.5mm Foot Ankle Nonlock - [id number] Implanted:Qty: 1 on 06/02/2019 by Zoey Sexton MD at [facility] Right: Foot [employer] [id number] / / [employer] [id number] Screw Bone Medline Unite L18mm Od3.5mm Foot Ankle Nonlock - [id number] Implanted:Qty: 1 on 06/02/2019 by Zoey Sexton MD at [facility] Right: Foot [employer] [id number] / / [employer] [id number] Screw Bone Medline Unite L20mm Od3.5mm Foot Ankle Nonlock - [id number] Implanted:Qty: 2 on 06/02/2019 by Zoey Sexton MD at [facility] Right: Foot [employer] [id number] / / [employer] Triathlon Cruciate Retain Bead Knee Left 5 Component Femoral Pa 5517-F-501 - [id number] Implanted:Qty: 1 on 04/24/2024 by Zbigniew Noel MD at [facility] [employer] [id number] 02/27/2029 5517-F-5 01 / / [id number] [employer] Triathlon Knee 6 Baseplate Tibial Tritanium 5536-B-600 - [id number] Implanted:Qty: 1 on 04/24/2024 by Zbigniew Noel MD at [facility] [employer] [id number] 11/08/2028 5536-B-6 00 / / [id number] [employer] Insert Tibial Triathlon 6 H11mm Knee Bearing Condylar Stabilize Sterile 6441-H-876-E - [id number] Implanted:Qty: 1 on 04/24/2024 by Zbigniew Noel MD at [facility] [employer] [id number] 12/19/2028 5531-G-6 11-E / / [id number] Explanted Type Area Tumbler Tender Device Identifier Shelf Expiration Date Model / Serial / Lot [employer] [id number] Anne .45in 9in 1 [place] [employer] Wire Fixation - S0 - [id number] Explanted:Qty: 1 on 08/06/2020 by Zoey Sexton MD at [facility] Wire [employer] [id number] S / 0 / Description:Provisional fixa tion [employer] 7557-3356 Anne .062in 9in 1 [place] [employer] Wire Fixation - [id number] Explanted:Qty: 1 on 06/28/2018 at [facility] Right: Foot [employer] [id number] / / Description:Provisional fixa tion [employer] 0269-1069 Anne .062in 9in 1 [place] Sm[employer] Wire Fixation - [id number] Explanted:Qty: 1 on 06/28/2018 at [facility] Right: Foot [employer] [id number] / / Description:Provisional fixa tion [employer] 6286-5049 Anne .062in 9in 1 [place] Sm[employer] Wire Fixation - [id number] Explanted:Qty: 1 on 06/28/2018 at [facility] Right: Foot [employer] [id number] / / Description:Provisional fixa tion Screw Explanted:Qty: 5 on 08/06/2020 by Zoey Sexton MD at [facility] Other / 0 / Plate Explanted:Qty: 1 on 08/06/2020 by Drew Espinosa MD at [facility] Other / 0 / Procedures Procedure Name Priority Date/Time Associated Diagnosis Comments DEVICE CHECK - REMOTE Routine 01/06/2025 2:57 AM CDT POCT HEMOGLOBIN A1C Routine 12/21/2024 3 :14 PM CDT Diabetes mellitus type II, non insulin dependent (HCC) EGFR Routine 12/14/2024 9:13 AM CDT High risk medications (not anticoagulants) long-term use BASIC METABOLIC PANEL Routine 12/14/2024 9:13 AM CDT High risk medications (not anticoagulants) long-term use POCT GLUCOSE DEVICE Routine 12/08/2024 3 :12 PM CDT [place] XCAPSL CTRC RMVL INSJ IO LENS PROSTH W/O ECP 12/08/2024 1:26 PM CDT Nuclear sclerotic cataract of both eyes Special Needs none POCT GLUCOSE DEVICE Routine 12/08/2024 1 :09 PM CDT IOL BIOMETRY - OU - BOTH EYES Routine 12/04/2024 10:00 AM CDT Age-related nuclear cataract of both eyes SCAN - LABS 12/01/2024 6:58 AM CDT SCAN - LABS 11/29/2024 8:40 AM CDT SCAN - LABS 11/25/2024 4:57 PM CDT EGFR Routine 11/17/2024 8:52 AM CDT High risk medications (not anticoagulants) long-term use BASIC METABOLIC PANEL Routine 11/17/2024 8:52 AM CDT High risk medications (not anticoagulants) long-term use SCAN - LABS 11/12/2024 8:45 AM CDT SCAN - LABS 11/08/2024 11:20 AM CDT SCAN - LABS 11/07/2024 6:06 PM CDT SCAN - LABS 11/03/2024 4:59 PM CDT [...] 2:35 PM CDT Coronary artery disease involving tunica-biloxi heart without angina pectoris, unspecified vessel or lesion type CORONARY FLOW VELOCITY (CFR) / INSTATANEOUS FLOW VELOCITY (IFR), 1ST VESSEL Routine 10/16/2024 2:35 PM CDT Coronary artery disease involving tunica-biloxi heart without angina pectoris, unspecified vessel or lesion type RIGHT CORONARY ANGIOGRAPHY Routine 10/16/2024 2:35 PM CDT Coronary artery disease involving tunica-biloxi heart without angina pectoris, unspecified vessel or lesion type POCT ACTIVATED CLOTTING TIME, LOW RANGE Routine 10/16/2024 2:30 PM CDT POCT ACTIVATED CLOTTING TIME, LOW RANGE Routine 10/16/2024 2:11 PM CDT CBC WITHOUT DIFFERENTIAL Routine 10/16/2024 12:35 PM CDT POCT GLUCOSE DEVICE Routine 10/16/2024 9 :19 AM CDT ECG 12-LEAD Routine 10/16/2024 8:32 AM CDT CTA ABDOMINAL AORTA AND BILATERAL ILIOFEMORAL RUNOFF Schedule Routine, Read Routine (OP Routine) 09/27/2023 11:27 AM CDT Claudication in peripheral vascular disease POCT LIPID PANEL Routine 09/21/2023 9:27 AM CDT Mixed hyperlipidemia PSA SCREEN Routine 06/17/2023 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 Prostate cancer 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 COLONOSCOPY 01/01/2021 12:16 PM CDT from Last 3 Months or Most Recently Relevant to Health Maintenance Results * DEVICE CHECK - REMOTE (01/06/2025 2:57 AM CDT) Anatomical Region Laterality Modality Other 01/06/2025 2:57 AM CDT Narrative 01/10/2025 2:37 PM CDT Interpretation Summary: Battery and Leads (BL) Normal parameters noted on battery and lead(s) --- 30 % remaining Presenting Rhythm (AZ) Atrial Pacing-Ventricular Sensing (AP-VS) --- rate 70 Arrhythmic events (AE) No new arrhythmic events in monitoring period Transmission Information (TI) Device Summary Report Procedure Note Maty Weber MD - 01/10/2025 Interpretation Summary: Battery and Leads (BL) Normal parameters noted on battery and lead(s) --- 30 % remaining Presenting Rhythm (AZ) Atrial Pacing-Ventricular Sensing (AP-VS) --- rate 70 Arrhythmic events (AE) No new arrhythmic events in monitoring period Transmission Information (TI) Device Summary Report Maty Weber MD CV CARDIAC SERVICES PROCEDURES Final Result * (ABNORMAL) POCT hemoglobin A1c (12/21/2024 3:14 PM CDT) Pathologist [facility] [place] Hemoglobin A1C, POC 5.9(A) 4.0 - 5.6 % Blood 12/21/2024 3:14 PM CDT Perry Romero MD POINT OF CARE TEST ORDERABLES Final Result * eGFR (12/14/2024 9:13 AM CDT) Pathologist [facility] [place] eGFR 66 >=60 mL/min/1. 73 m2 Comment: Interpretive Data [...] interpretive data was last reviewed 2021. Blood 12/14/2024 9:13 AM CDT 12/14/2024 8:26 PM CDT Rigo Carroll MD LAB BLOOD ORDERABLES F inal Result [facility] [address] Department of Laboratories [place] [id number] * (ABNORMAL) Basic metabolic panel (12/14/2024 9:13 AM CDT) Sodium 135 135 - 145 mmol/L Potassium, pl 4.4 3.3 - 4.9 mmol/L [facility] Chloride 101 97 - 110 mmol/L [facility] CO2 21(L) 22 - 32 mmol/L [facility] Anion gap 13 2 - 15 mmol/L [facility] BUN 28(H) 6 - 25 mg/dL [facility] Creatinine 1.19 0.80 - 1.30 mg/dL [facility] Glucose 145 70 - 199 mg/dL [facility] Comment: Interpretive Data Fasting glucose >/= [...] interpretive data was last revised 2022. Calcium 9.4 8.5 - 10.3 mg/dL [facility] Blood 12/14/2024 9:13 AM CDT 12/14/2024 8:24 PM CDT Rigo Carroll MD LAB BLOOD ORDERABLES F inal Result [facility] [address] [place] [address] * POCT glucose (12/08/2024 3:12 PM CDT) Glucose, POC 147 70 - 199 mg/dL Blood 12/08/2024 3:12 PM CDT 12/08/2024 3:12 PM CDT Jaime Fuchs MD LAB POCT ORDERABLES - DEVICE Final Result Performing Organization Address [facility] Co de Phone Number [facility] [place] [place] [address] * POCT glucose (12/08/2024 1:09 PM CDT) Glucose, POC 115 70 - 199 mg/dL Blood 12/08/2024 1:09 PM CDT 12/08/2024 1:09 PM CDT Jaime Fuchs MD LAB POCT ORDERABLES - DEVICE Final Result Performing Organization Address [facility] Co de Phone Number [facility] [employer] [place] [address] * IOL Biometry - OU - Both Eyes (12/04/2024 10:00 AM CDT) Anatomical Region Laterality Modality Head Ophthalmic Axial Measurements Narrative 12/10/2024 6:29 PM CDT Adequate for preoperative surgical planning. Geoffrey Ramon MD PhD OPHTH ULTRASOUND Final Result * SCAN - LABS (12/01/2024 6:58 AM CDT) Perry Romero MD Final Result * SCAN - LABS (11/29/2024 8:40 AM CDT) Perry Romero MD Final Result * SCAN - LABS (11/25/2024 4:57 PM CDT) Perry Romero MD Final Result * (ABNORMAL) eGFR (11/17/2024 8:52 AM CDT) eGFR 59(L) >=60 mL/min/1. 73 m2 Comment: Interpretive Data [...] interpretive data was last reviewed 2021. Blood 11/17/2024 8:52 AM CDT 11/17/2024 6:31 PM CDT Rigo Carroll MD LAB BLOOD ORDERABLES F inal Result [facility] [address] Department [place] [address] * (ABNORMAL) Basic metabolic panel (11/17/2024 8:52 AM CDT) Sodium 137 135 - 145 mmol/L Potassium, pl 4.3 3.3 - 4.9 mmol/L [facility] Chloride 99 97 - 110 mmol/L [facility] CO2 23 22 - 32 mmol/L [facility] Anion gap 15 2 - 15 mmol/L [facility] BUN 17 6 - 25 mg/dL [facility] Creatinine 1.31(H) 0.80 - 1.30 mg/dL [facility] Glucose 121 70 - 199 mg/dL [facility] Comment: Interpretive Data Fasting glucose >/= [...] interpretive data was last revised 2022. Calcium 9.4 8.5 - 10.3 mg/dL [facility] Blood 11/17/2024 8:52 AM CDT 11/17/2024 6:20 PM CDT Rigo Carroll MD LAB BLOOD ORDERABLES F inal Result [facility] [address] Department [place] [address] * SCAN - LABS (11/12/2024 8:45 AM CDT) Perry Romero MD Final Result * SCAN - LABS (11/08/2024 11:20 AM CDT) Perry Romero MD Final Result * SCAN - LABS (11/07/2024 6:06 PM CDT) us Perry Romero MD Final Result * SCAN - LABS (11/03/2024 4:59 PM [...] BLOOD ORDERABLES F inal Result [facility] [address] Department [place] [address] * Basic metabolic panel (10/18/2024 10:10 AM CDT) Sodium 137 135 - 145 mmol/L Potassium, pl 4.3 3.3 - 4.9 mmol/L [facility] Chloride 101 97 - 110 mmol/L [facility] CO2 22 22 - 32 mmol/L [facility] Anion gap 14 2 - 15 mmol/L [facility] BUN 18 6 - 25 mg/dL [facility] Creatinine 1.14 0.80 - 1.30 mg/dL [facility] Glucose 130 70 - 199 mg/dL [facility] Comment: Interpretive Data Fasting glucose >/= [...] 2022. Calcium 10.0 8.5 - 10.3 mg/dL [facility] Blood 10/18/2024 10:1 0 AM CDT 10/18/2024 3:54 PM CDT Rigo Carroll MD LAB BLOOD ORDERABLES F inal Result [facility] [address] Department [place] [address] * POCT glucose (10/16/2024 3:20 PM CDT) Glucose, POC 95 70 - 199 mg/dL Blood 10/16/2024 3:20 PM CDT 10/16/2024 3:20 PM CDT us Clifford Sandy MD LAB POCT ORDERABLES - DEVICE Final Result [facility] Department [place] [address] * RIGHT CORONARY ANGIOGRAPHY, CORONARY FLOW VELOCITY [...] and OM2 Known atretic KAUR to LAD TRIAL PARALEGAL of the mid RCA THERAPEUTIC RECOMMENDATIONS: Left [...] result were not included. Cardiovascular Procedure Center [facility] [address], [address] [place] [id number] CORONARY AND GRAFT REPORT Patient: Vicky Youssef : 1955 MR number: [id number] Date of Service: 10/16/2024 [place] Operator: Clifford Sandy MD Fellow: Salvador Arita MD and Madalyn Reynaga MD Referring physician: Rigo Carroll MD INDICATION: worsening LV function, dyspnea PATIENT CLINICAL PROFILE: Vicky Youssef is a 69 y.o. male with a history of CABG s/p KAUR-LAD (atretic), SVG-Ramus/high OM, SVG-OM2, PCI to LM-LAD with a 4.0 mm [place] SHEMAR, mild LV dysfunction, who is presenting with worsening LV dysfunction and some dyspnea on exertion. PROCEDURE: The risks, benefits and alternatives of the procedures and moderate sedation were explained to the patient and informed consent was obtained. The patient was brought to the supervisor laboratory and placed on the table. Bilateral groins were prepped and draped in the usual sterile fashion. Ultrasound guidance was used to obtain access. I provided direct [id number] moderate conscious sedation which administered by independent [...] The RCA has slow flow and a TRIAL PARALEGAL in the mid segment which is unchanged [...] 231(H) 123 - 168 sec POC Performer [id number] [facility] POC Device Number [id number] [facility] Blood 10/16/2024 2:30 PM CDT 10/16/2024 2:30 PM CDT Clifford Sandy MD LAB POCT ORDERABLES - DEVICE Final Result Performing Organization Address City/[facility] Co de Phone Number [facility] [place] [address] * (ABNORMAL) POCT Activated clotting time, low range (10/16/2024 2:11 PM CDT) ACT 269(H) 123 - 168 sec POC Performer [id number] [facility] POC Device Number [id number] [facility] Blood 10/16/2024 2:11 PM CDT 10/16/2024 2:11 PM CDT Clifford Sandy MD LAB POCT ORDERABLES - DEVICE Final Result Performing Organization Address [facility] Co de Phone Number [facility] [place] [address] * CBC without differential (10/16/2024 12:35 PM CDT) Pathologist [facility] [place] WBC See Comment 3.80 - 9.90 Comment:Credited, specimen c lotted. Hgb See Comment 13.0 - 17.5 [facility] Comment:Credited, specimen c lotted. Hct See Comment 38.9 - 50.3 [facility] Comment:Credited, specimen c lotted. Plt See Comment 150 - 400 [facility] Comment:Credited, specimen c lotted. MPV See Comment 9.1 - 12.3 [facility] Comment:Credited, specimen c lotted. RBC See Comment 4.30 - 5.80 [facility] Comment:Credited, specimen c lotted. MCV See Comment 81.3 - 96.4 [facility] Comment:Credited, specimen c lotted. MCH See Comment 27.1 - 33.3 [facility] Comment:Credited, specimen c lotted. MCHC See Comment 32.3 - 35.7 [facility] Comment:Credited, specimen c lotted. RDW CV See Comment 11.1 - 14.9 [facility] Comment:Credited, specimen c lotted. RDW SD See Comment 35.7 - 48.1 [facility] Comment:Credited, specimen c lotted. NRBC abs See Comment 0.00 - 0.01 [facility] Comment:Credited, specimen c lotted. Blood 10/16/2024 12:3 5 PM CDT 10/16/2024 2:05 PM CDT Narrative [facility] - 10/16/2024 2:33 PM CDT To be drawn after hydration bolus complete Clifford Sandy MD LAB BLOOD ORDERABLES Final Result Performing Organization Address City/[facility]/ZIP Co de Phone Number [facility] Department [place] [address] * POCT glucose (10/16/2024 9:19 AM CDT) [facility] Glucose, POC 118 70 - 199 mg/dL Blood 10/16/2024 9:19 AM CDT 10/16/2024 9:19 AM CDT Clifford Sandy MD LAB POCT ORDERABLES - DEVICE Final Result Performing Organization Address City/[facility] Co de Phone Number [facility] [place] [address] * ECG 12 lead (10/16/2024 8:32 AM CDT) Ventricular Rate EKG/Min 70 BPM [facility] Atrial Rate 70 BPM [facility] [place]-Interval (MSEC) 304 ms [facility] QRS-Interval (MSEC) 132 ms [facility] QT-Interval (MSEC) 374 ms [facility] QTc 403 ms [facility] P [place] 2 degrees [facility] R [place] 1 degrees [facility] T [place] 252 degrees [facility] Diagnosis Atrial-paced rhythm with prolonged AV conduction Left ventricular hypertrophy with QRS widening and repolarization abnormality ( Sokolow-Pereira , Philip product ) Cannot rule out Septal infarct , age undetermined Abnormal ECG When compared with ECG of 25-NOV-2022 12:06, no significant change Confirmed by ERNESTINE TAVERAS M.D ([id number]) on 10/17/2024 3:04:55 PM [facility] [employer] 10/16/2024 8:32 AM CDT 10/17/2024 3:04 PM CDT us Clifford Sandy MD ECG ORDERABLES Lilia l Result [facility] [employer] [facility] * CTA Abdominal Aorta And Bilateral Iliofemoral [...] lipid panel (09/21/2023 9:27 AM CDT) Pathologist [facility] [place] Cholesterol, POC <100 mg/dL Triglycerides, POC 214 mg/dL Capillary blood 09/21/2023 9 :27 AM CDT Perry Romero MD POINT OF CARE TEST ORDERABLES Final Result * PSA screen (06/17/2023 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) [facility] PSA 0.4 0.0 - 4.0 ng/mL [facility] - Comment: Shahbaz ECLIA methodology. According to the [place] [employer], Serum PSA should decrease and [...] malignant disease. Blood 06/17/2023 10:1 3 AM METAL DIE FINISHER 06/17/2023 Narrative [facility] - 06/18/2023 6:11 AM METAL DIE FINISHER Performed at: [address] [id number] [employer] Performer: Edgar Menard PhD, Phone: [phone] us Mamie Rose ANALYTICAL TECHNICIAN LAB BLOOD ORDERABLES Fin al Result [facility] [...] passed under direct vision.The CF [id number] endoscope was introducedthrough the anus and advanced to the cecum, identified by appendiceal orifice and ileocecal valve. The colonoscopy was performed without difficulty. The patient tolerated the procedure well. The qualityof the bowel preparation was evaluated using the BBPS (Rolla Bowel Preparation Scale) with scores of:Right Colon [...] On: 01/01/2021 12:16 PM Recognized by the [place] [employer] for promoting quality in endoscopy us Emily Zeng MD ENDOSCOPY PROCEDUR ES Final Result from Last 3 Months or Most Recently Relevant to Health Maintenance Insurance MEDICARE BLUE CROSS MEDICARE SUPPLEMENT MEDICARE [facility] MEDICARE MEDICARE Member Subscriber Plan / Payer (Ef fective 2005-Present) Name:Vicky Youssef Member ID:[id number] Relation to Subscriber:Self Name:Vicky Youssef Subscriber ID:[id number] Payer ID:[id number] Group ID:Not on file Type:MEDICARE TRADITIONAL Address: [place] [phone] BLUE CROSS MEDICARE SUPPLEMENT MEDICARE BLUE CROSS MEDICARE SUPPLEMENT MEDICARE [facility] MEDICARE SUPPLEMENT Advance Directives For more information, please contact: [phone] * Full Code (Latest Code Status on [...] 4:34 PM 05/02/2021 4:45 PM Care Teams Volunteer Assistant Relationship Specialty Start Date End Date Perry Romero MD PCP - General Internal Medicine 02/23/20 Rigo Carroll MD Accounting Reconciliation Clerk Cardiology 05/23/19 Love Jones, PT Physical Therapist Physical Therapy 09/28/22 Arthur Bateman MD [address] [address] Referring Physician Anesthesiology 09/28/22 Karl Cha MD [address] [place] [address] Referring Physician Orthopedic Surgery 11/24/23
--- OUTSIDE RECORDS SUMMARY | 2025-01-11 09:40 | XMS_ITS | Encounter Summary ---
Author Organization [facility] Address [address] [place] [address] Phone Care Team Providers Care Decorator Hand Name Role Phone Leonidas Carroll MD Unavailable [phone] Perry Romero MD Primary Care Provider Love Jones PT Unavailable Unavailab Arthur Law MD Unavailable Karl Cha MD Unavailable [phone] Encounter Details Date Type Department Care Team (Late st Contact Info) Description 11/18/2024 Results Follow-Up [facility] Cardiology [address] [facility] 8th [place] [address] [place] [address] Leonidas Carroll MD [address] [facility] [address] [place] [address] Basic metabolic panel, eGFR Social [...] week 05/02/2021 How often do you attend [facility] or tenriism services? 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 They assisted init was not physiologically significant. Not every blockage leads to lack of blood flow. It was moreof a minor blockage * Result Encounter Note - Nandini Avalos RN - 11/21/2024 3:00 PM CDT I lmor for pt with results. I requested if pt wishes to have repeat BMP with ov with PCP on 12/21. Await response. documented in this encounter Plan of Treatment Not on file documented as of this encounter Goals Goal Patient Goal Type Associated Problems Recent Progress Patient-Stated? Author CCM Chronic Pain Care Plan Chronic Care Management Worsening( 1:54 PM CDT) No Brissa Muse RN Note: Problem: Chronic Pain Goals: 1. Minimize further functional decline 2. Maximize quality of life 3. Control pain Strategies: - Activity/exercise program recommendation - Conservative stepwise pain medicine strategy with multi-disciplinary approach - Recommend healthy lifestyle strategies and compensatory methods as needed documented as of this encounter Results * (ABNORMAL) Basic metabolic panel (12/14/2024 9:13 AM CDT) Sodium 135 135 - 145 mmol/L Potassium, pl 4.4 3.3 - 4.9 mmol/L [facility] Chloride 101 97 - 110 mmol/L [facility] CO2 21(L) 22 - 32 mmol/L [facility] Anion gap 13 2 - 15 mmol/L [facility] BUN 28(H) 6 - 25 mg/dL [facility] Creatinine 1.19 0.80 - 1.30 mg/dL [facility] Glucose 145 70 - 199 mg/dL [facility] Comment: Interpretive Data Fasting glucose >/= 126 [...] 9:13 AM CDT 12/14/2024 8:24 PM CDT us Leonidas Carroll MD LAB BLOOD ORDERABLES F inal Result [facility] [address] Department [place] [address] documented in this encounter Visit Diagnoses Diagnosis High risk medications (not anticoagulants) long-term use- Primary Encounter for long-term (current) use of other medications documented in this encounter Care Teams Decorator Hand Relationship Specialty Start Date End Date Perry Romero MD PCP - General Internal Medicine 02/23/20 Leonidas Carroll MD Education Assistant Cardiology 05/23/19 Love Jones, PT Physical Therapist Physical Therapy 09/28/22 Arthur Bateman MD [address] [address] Referring Physician Anesthesiology 09/28/22 Karl Cha MD [address] [place] [address] Referring Physician Orthopedic Surgery 11/24/23 documented as of this encounter
--- OUTSIDE RECORDS SUMMARY | 2025-01-11 09:40 | XMS_ITS | Encounter Summary ---
Author Organization [facility] Address [address] [place] [address] Care Team Providers Care Emergency Operator Name Role Phone Leonidas Carroll MD Unavailable [phone] Perry Romero MD Primary Care Provider Love Jonse PT Unavailable Unavailab Arthur Law MD Unavailable Karl Cha MD Unavailable [phone] Encounter Details Date Type Department Care Team (Late st Contact Info) Description 10/28/2021 Telephone [facility] Radiology [address] [place], [place] [id number] Alberto Pack MD PhD [address] [place] [address] Social History Tobacco Use Types Packs/Day Years Used Date Smoking Tobacco: Former Cigarettes 28 1 975 - 2002 Smokeless Tobacco: [...] week 05/02/2021 How often do you attend [facility] or anglican services? 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
--- OUTSIDE RECORDS SUMMARY | 2025-01-11 09:40 | XMS_ITS | Encounter Summary ---
Author Organization [facility] Address [address] [place] [address] Phone Care Team Providers Care Painter And Grader Cork Name Role Phone Tim Sanchez MD Primary Care Provider [phone] Lina Mcadams MD Primary Care Provide r Deacon Eisenberg DO Primary Care Provider [phone] Leonidas Carroll MD Unavailable [phone] Perry Romero MD Primary Care Provider [phone] Love Jones PT Unavailable Unavailab Arthur Law MD Unavailable Karl Cha MD Unavailable [phone] Encounter Details Date Type Department Care Team (Late st Contact Info) Description 05/13/2015 Orders Only [facility] CAR CLINCONV ProviderHeena MD [address] [place] [address] Social History Tobacco Use Types Packs/Day Years Used Date Smoking Tobacco: Never Assessed Sex and Gender Information Value Date Recorded Sex Assigned at Not on file 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 Gender Identity Not on file Sexual Orientation [...] on filedocumented in this encounter Care Teams Painter And Grader Cork Relationship Specialty Start Date End Date Tim Sanchez MD [address] [facility] [address] [place] [address] PCP - General 09/29/16 01/13/18 Lina Mcadams MD [address] [facility] [address] [place] [address] PCP - General 01/14/18 11/21/18 Deacon Eisenberg DO [address] [facility] [address] [place] [address] PCP - General 11/22/18 02/22/20 Perry Romero MD [address] [address] PCP - General Internal Medicine 02/23/20 Leonidas Carroll MD [address] [facility] [address] [place] [address] Skein Drier Cardiology 05/23/19 Love Jones, PT Physical Therapist Physical Therapy 09/28/22 Arthur Bateman MD [address] [facility] [address] [place] [address] Referring Physician Anesthesiology 09/28/22 Karl Cha MD [address] [facility] [address] [place] [address] Referring Physician Orthopedic Surgery 11/24/23 documented as of this encounter
--- OUTSIDE RECORDS SUMMARY | 2025-01-11 09:40 | XMS_ITS | Encounter Summary ---
Author Organization [facility] Address [address] [place] [address] Phone Care Team Providers Care Neurourologist Name Role Phone Leonidas Carroll MD Unavailable [phone] Perry Romero MD Primary Care Provider [phone] Love Jones PT Unavailable Unavailab Arthur Law MD Unavailable Karl Cha MD Unavailable [phone] Encounter Details Date Type Department Care Team (Late st Contact Info) Description 06/22/2024 Telephone [facility] Cardiology [address] [facility] 8th [place] [address] [place] [address] Leonidas Carroll MD [address] [facility] [address] [place] [address] Social History Tobacco Use Types [...] How often do you attend [facility] or congregation services? 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
--- OUTSIDE RECORDS SUMMARY | 2025-01-11 09:40 | XMS_ITS | Encounter Summary ---
Author Organization [facility] Healthcare Address [address] [place] [address] Care Team Providers Care Ceramic Research Engineer Name Role Phone Leonidas Carroll MD Unavailable [phone] Perry Romero MD Primary Care Provider [phone] Love Jones PT Unavailable Unavailab Arthur Law MD Unavailable Karl Cha MD Unavailable [phone] Reason for Visit * Reason Onset Date Comments pre proc blood thinner 07/24/2021 Encounter Details Date Type Department Care Team (Late st Contact Info) Description 07/24/2021 Telephone [facility] [address] [facility] [address] [place], [place] [id number] Arthur Bateman MD [address] [facility] [address] [place], [place] [id number] pre proc blood thinner Social History Tobacco [...] often do you attend chur ch or tenriism services? 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
--- OUTSIDE RECORDS SUMMARY | 2025-01-11 09:40 | XMS_ITS | Clinical Summary ---
Author Organization [facility] Address [address] [place] [address] Phone Care Team Providers Care Executive Vice President Business Development Name Role Phone Provider, None Primary Care [...] Virus (HCV) Screening 1955 TdaP Immunization 1955 Cologuard 2000 Colonoscopy 2000 Colorectal Cancer Screening 2000 Immunochemical Fecal Occult Blood 2000 Pneumococcal Immunization (50+ years) (1 of 1 - PCV) 2005 Zoster Immunization (1 of 2) 2005 Respiratory Syncytial Virus (RSV) Immunization (Adult) (1 - Risk 60-74 years 1-dose series) 2015 SARS-COV-2 Immunization ( season) 2024 06/19/2021, 09/06/2020, 08/09/2020 Influenza Immunization (#1) 02/12/202508/2017, 08/05/2017, 03/14/2013, Additional history exists Hepatitis B Immunization Aged Out No longer eligible based on patient's age to complete this topic Human Papillomavirus (HPV) Immunization Aged Out No longer eligible based on patient's age to complete this topic Meningococcal Immunization (ACWY) Aged Out No longer eligible based on patient's age to complete this topic Rotavirus Immunization Aged Out No lo nger eligible based on patient's age to complete this topic Insurance MEDICARE [facility] Care Teams Executive Vice President Business Development Relationship Specialty Start Date End Date Provider, None [place] PCP - General 02/20/20
--- OUTSIDE RECORDS SUMMARY | 2025-01-11 09:40 | XMS_ITS | Continuity of Care Document ---
Author Organization [facility] Address [address] [place] [address] [address] [place] [address] Phone Care Team Providers Care Undercollar Baster Name Role Phone Mary Ellen Dunn Unavailable Unavailable Advance Directives Directive Yes / No Effective Date File Name No Information Encounters Encounter Description Practice Location Reason(s) For Visit Diagnoses Date Provider Providers Copied on Encounter [facility], [id number] [place] [address] [address], [place], [place], [id number], [place] tel:[phone] SEC [facility] No Information [phone]a [address]. [address] [facility] , [address], [place], [address], [place]. tel:[phone] Family History Family Member Type Diagnosis Age At Onset No Information Payers Payer name Insurance type Covered alliance party ID Authoriza tion(s) No Information Social [...]
--- OUTSIDE RECORDS SUMMARY | 2025-01-11 09:40 | XMS_ITS | Clinical Summary ---
Author Organization [facility] Address [address] [place] [address] Care Team Providers Care Napping Machine Operator Name Role Phone Tim Sanchez MD Primary Care Provider Source Comments [facility],non-owned Affiliates and Associated Physician Practices is amultiple site organization consisting of ambulatory clinics and hospital sitesin [place], [place], [place] and [place]. This disclosure is being madepursuant to the Care Everywhere program and may not contain all information available regarding this patient. Last updated 18.[facility] Allergies No known active allergies Medications * [...] (11/07/2020): Added automatically from request for surgery [id number] Rosacea 09/18/2020 Achilles tendon contracture, right 07/04/2020 Overview (11/07/2020): Added automatically from request for surgery [id number] Metatarsalgia of right foot 07/04/2020 Overview (11/07/2020): Added automatically from request for surgery [id number] Sesamoiditis 07/04/2020 Overview (11/07/2020): Added automatically from request for surgery [id number] Joint pain 02/28/2020 Overview (11/07/2020): Last Assessment & Plan: Medrol dose pack Tramadol Q6 PRN (use, safety, s/e reviewed) Referral to Pain Management 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 Transferred to [facility], s/p [facility] on 11/22. LHC revealed stable [...] (12/14/2019): Added automatically from request for surgery [id number] Coronary artery disease invo lving kashia coronary artery of kashia heart without angina pectoris 03/08/2018 Diabetes mellitus [...] on file Legal Sex Male 6:26 AM TICKET TAKER Gender Identity Not on file Sexual Orientation [...] 1995 ZOSTER VACCINE (1 of 2) 2005 Respiratory Syncytial Virus (RSV) Vaccine Pt: or over 60 yrs (1 - Risk 60-74 years 1-dose series) 2015 DIABETES-FOOT EXAM WITH MONOFILAMENT 12/14/2019 AAA SCREENING 2020 DIABETES-HGB A1C 03/20/2021 09/18/2020, 06/03/2020 DIABETES-SERUM CREATININE 09/18/20212020, 06/03/2020, 08/01/2011 DIABETES RETINOPATHY SCREENING 11/07/2022 11/07/2020, 07/18/2020, 07/18/2020, Additional history exists COVID-19 VACCINE ( season) 2024 DEPRESSION SCREENING 06/14/2024 DIABETES - URINE PROTEIN SCREENING 06/14/2024 INFLUENZA VACCINE (#1) 2025 9, 03/16/2018, 08/05/2017 HEPATITIS B VACCINE Aged Out No longe [...] age to complete this topic Insurance MEDICARE ANTHEM MEDICARE ANTHEM SELF PAY NO INSURANCE Member Subscriber Plan / Payer (Ef fective for All Dates) Name:Vicky Youssef Member ID:Not on file Relation to Subscriber:Not on file Name:VICKY YOUSSEF Subscriber ID:Not on file (Home) Address: [address] [place] [address] Payer ID:Not on file Group ID:Not on file Type:Self Pay Address: [place], [place] MEDICARE Care Teams Napping Machine Operator Relationship Specialty Start Date End Date Tim Sanchez MD [address] [place] [address] PCP - General 10/05/17
--- OUTSIDE RECORDS SUMMARY | 2025-01-11 09:41 | XMS_ITS | Referral Summary ---
Author Organization [facility] Address [address] [place] [address] Care Team Providers Care Crm Marketing Specialist Name Role Phone Rigo Carroll MD Unavailable [phone] Perry Romero MD Primary Care Provider [phone] Love Jones PT Unavailable Unavailab Arthur Law MD Unavailable Karl Cha MD Unavailable [phone] Encounters Date Type Department Care Team Description 01/10/[address] [facility] [place] [facility] [address] [facility] Advanced Medicine [address] [place] [address] Arthur Bateman MD PMC Preprocedure; Anticoagulation 01/06/[address] [facility] Cardiology [address] [facility] Medical Office Building [address] [place] [address] Maty Weber MD 01/03/2025 Telephone [facility] [address] [facility] [address] [place] [address] Perry Romero MD request for referral 01/02/2025 10:30 AM CDT Office Visit [facility] Ophthalmology [address] [facility] 1st [place] [phone] Pseudophakia of right eye (Primary Dx) 12/22/[address] [facility] Ophthalmology [address] [place] [address] Geoffrey Ramon MD PhD Post op questions 12/21/2024 3:15 PM CDT Office Visit [facility] [address] [facility] [address] [place] [phone] Perry Romero MD Diabetes mellitus type II, non insulin dependent (HCC) (Primary Dx); Primary hypertension; Mixed hyperlipidemia; Stage 3a chronic kidney disease (HCC); Coronary artery disease involving white mountain heart without angina pectoris, unspecified vessel or lesion type 12/18/2024 Results Follow-Up [facility] Cardiology [address] [facility] Advanced Medicine 8th [place] [address] [place] [address] Nandini Avalos RN Basic metabolic panel, eGFR 12/14/2024 9:13 AM CDT - 12/14/2024 11:59 PM CDT Hospital Encounter [facility] [address] [place] [address] High risk medications (not anticoagulants) long-term use Discharge Disposition: Discharge to home or self care 12/14/2024 9:15 AM CDT Lab [facility] Outpatient Lab at [address] [address] 12/13/2024 10:00 AM CDT Office Visit [facility] Ophthalmology [address] [place] [phone] Pseudophakia of right eye (Primary Dx) 12/09/2024 7:15 AM CDT Office Visit [facility] Ophthalmology [address] [place] [phone] Pseudophakia of right eye (Primary Dx) 12/08/2024 2:10 PM CDT - 12/08/2024 3:10 PM CDT Surgery [facility]) [address] [place] [address] Jaime Fuchs MD EXTRACTION CATARACT WITH LENS IMPLANT. [19125 (CPT )] 12/08/2024 1:21 PM CDT Anesthesia Event [facility]) [address] [place] [address] Tonya Castillo MD Heuvelman, Katherine Marie, NP 12/08/2024 12:34 PM CDT - 12/08/2024 3:16 PM CDT Hospital Encounter [facility] [address] [place] [address] Jaime Fuchs MD Nuclear sclerotic cataract of both eyes [H25.13] (Primary Dx) Discharge Disposition: Discharge to home or self care 12/05/[address] [facility] Ophthalmology [address] [place] [phone] Geoffrey Ramon MD PhD Scheduling Appointments (CEIOL OD) 12/04/2024 10:00 AM CDT Office Visit [facility] Ophthalmology [address] [place] [phone] Age-related nuclear cataract of both eyes (Primary Dx) 12/01/2024 Orders Only [facility] [address] [place] [address] [address] [place] [address] Perry Romero MD 11/30/[address] [facility] [place] [facility] [address] [place] [address] Advanced Medicine [address] [place] [address] Arthur Bateman MD Anticoagulation 11/29/2024 Orders Only [facility] [address] [place] [address] [address] [place] [address] Perry Romero MD 11/29/2024 1:46 PM CDT - 11/29/2024 11:59 PM CDT Hospital Encounter [facility] [place] [facility] [address] [place] [address] Advanced Medicine [address] [place] [address] Arthur Bateman MD Right foot pain (Primary Dx); Left knee pain, unspecified chronicity; Spondylosis of lumbar region without myelopathy or radiculopathy Discharge Disposition: Discharge to home or self care 11/25/2024 Orders Only [facility] [address] [facility] [address] [place] [address] Perry Romero MD 11/21/2024 Documentation [facility] Clinical Trial 1 [place] [address] Bebe Tinajero BS 11/21/[address] [facility] Cardiology [facility] 8th [place] [address] [place] [address] Rigo Carroll MD 11/20/2024 3:00 PM CDT Office Visit [facility] Cardiology [address] [place] [address] 8th [place] [address] [place] [address] Rigo Carroll MD Coronary artery disease involving white mountain coronary artery of white mountain heart without angina pectoris (Primary Dx); Nonrheumatic mitral (valve) insufficiency; Presence of cardiac pacemaker; Ischemic cardiomyopathy 11/18/2024 Results Follow-Up [facility] Cardiology [address] [place] [address] 8th [place] [address] [place] [address] Rigo Carroll MD Basic metabolic panel, eGFR 11/17/2024 8:52 AM CDT - 11/17/2024 11:59 PM CDT Hospital Encounter [address] [address] High risk medications (not anticoagulants) long-term use Discharge Disposition: Discharge to home or self care 11/17/[address] [facility] Orthopaedic Surgery [address] [place] [address] 6th [place] [address] [place] [address] Sudhir Martinez MD Greater trochanteric pain syndrome of right lower extremity (Primary Dx); Chronic right hip pain 11/17/2024 9:00 AM CDT Lab [facility] Outpatient Lab at [address] [address] Polypharmacy (Primary Dx) 11/12/2024 Orders Only [facility] [address] [facility] [address] [place] [address] Perry Romero MD 11/08/[address] [facility] Cardiology [facility] 8th [place] [address] [place] [address] Rigo Carroll MD High risk medications (not anticoagulants) long-term use (Primary Dx) 11/08/2024 Orders Only [facility] [address] [place] [address] Perry Romero MD 11/07/2024 Orders Only [facility] [address] [place] [address] [address] [place] [address] Perry Romero MD 11/03/2024 Orders Only [facility] [address] [place] [address] [address] [place] [address] Perry Romero MD 11/02/2024 Orders Only [facility] Scanning, Provider Nonrheumatic mitral (valve) insufficiency (Primary Dx) 11/02/2024 Orders Only [facility] [address] [place] [address] [address] [place] [address] Perry Romero MD 11/01/[address] [facility] Cardiology [address] [place] [address] 8th [place] [address] [place] [address] Rigo Carroll MD 10/31/2024 Orders Only [facility] [address] [place] [address] [address] [place] [address] Perry Romero MD 10/25/2024 1:00 PM CDT Office Visit [facility] Orthopaedic Surgery [address] [place] [address] 6th [place] [address] [place] [address] Sudhir Martinez MD Greater trochanteric pain syndrome of right lower extremity (Primary Dx); Chronic right hip pain; Chronic knee pain after total replacement of left knee joint 10/23/[address] [facility] Cardiology [address] [facility] 8th [place] [address] [place] [address] Rigo Carroll MD BP updates 10/18/2024 Results Follow-Up [facility] Cardiology [address] [place] [address] 8th [place] [address] [place] [address] Rigo Carroll MD Basic metabolic panel, eGFR 10/18/2024 10:10 AM CDT - 10/18/2024 11:59 PM CDT Hospital Encounter [address] [address] High risk medications (not anticoagulants) long-term use Discharge Disposition: Discharge to home or self care 10/18/2024 10:15 AM CDT Lab [facility] Outpatient Lab at [address] [address] Diabetes mellitus type 2 without retinopathy (HCC) (Primary Dx); High risk medications (not anticoagulants) long-term use 10/16/2024 Results Follow-Up [facility] Cardiology [address] [place] [address] 8th [place] [address] [place] [address] Rigo Carroll MD Cardiac Catheterization 10/16/2024 10:45 AM CDT - 10/16/2024 12:25 PM CDT Surgery [facility] [address] [place] [phone] Clifford Sandy MD CORONARY ARTERY AND GRAFT ANGIOGRAPHY [address] 10/16/2024 8:28 AM CDT - 10/16/2024 5:00 PM CDT Hospital Encounter [facility] [address] [place] [phone] Clifford Sandy MD Coronary artery disease involving white mountain heart without angina pectoris, unspecified vessel or lesion type Discharge Disposition: Discharge to home or self care 10/11/2024 Orders Only [facility] Health Information Management [address] [place] [address] Scanning, Provider 10/11/2024 Orders Only [facility] Vascular at [address] [place] [address] Judah Montana MD Atherosclerosis of white mountain artery of both lower extremities with intermittent claudication (Primary Dx); Other specified symptoms and signs involving the circulatory and respiratory systems 10/11/2024 8:45 AM CDT Office Visit [facility] Vascular at [address] [place] [address] Judah Montana MD Peripheral vascular disease (Primary Dx); Primary hypertension; Mixed hyperlipidemia from Last 3 Months Allergies Active Allergy Reactions Criticality Noted Date Comments Tiqkqoc-Eag-Wqm Reductase Inhibitors Other (See comments) Low 05/03/2024 Pt has an intolerance to statin drugs. Dr. Carroll's office put this in pt said/ reaction unknown Medications ezetimibe (ZETIA) 10 mg tablet TAKE 1 TABLET(10 MG) BY MOUTH EVERY NIGHT 90 tablet 3 Active Additional Information Patient taking differently:10 mg [...] doses total 25 tablet 3 2024 Active Additional Information Patient taking differently:0.4 [...] by mouth daily 30 tablet 024 Active Additional Information Patient taking differently:7.5 mg [...] 1 tablet (5 mg total) by mouth management internship before breakfast 90 tablet 3 025 Active [...] day 025 Active hydrOXYzine (ATARAX) 10 mg tabletIndications:a nxiety Take 1 tablet (10 mg total) by mouth daily 025 Active metoprolol XL (TOPROL-XL) 25 mg extended release tablet Take 1 tablet (25 mg total) by mouth daily 30 tablet 11 025 2025 Active Additional Information Patient taking differently:25 mg oralEvery morning, Indications: chronic heart failure, coronary artery disease, hypertension, Informant: Self, Reported on 12/08/2024 empagliflozin (JARDIANCE) 10 mg tablet Take 1 tablet (10 mg total) by mouth daily 30 tablet 11 025 Active Additional Information Patient taking differently:10 mg oralEvery morning, Indications: Heart Failure, type 2 diabetes mellitus, Informant: Self, Reported on 12/08/2024 amLODIPine (NORVASC) 2.5 mg tablet TAKE 1 TABLET(2.5 MG) BY MOUTH DAILY 90 tablet 3 025 Active Additional Information Patient taking differently:2.5 mg oralEvery morning, Indications: hypertension, Informant: Self, Reported on 12/08/2024 sacubitriL-valsarta n (ENTRESTO) 24-26 mg tabletIndications:c hronic heart failure Take 1 tablet by mouth 2 (two) times a day 60 tablet 11 025 Active fenofibrate nanocrystallized (TRICOR) 145 mg tablet Take 1 tablet (145 mg total) by mouth daily 90 tablet 3 025 2025 Active Additional Information Patient taking differently:145 [...] day Use as instructed 5 mL 1 Active nitrofurantoin monohydrate (MACROBID) 100 mg capsule [...] 06/17/2023 Assessment & Plan (06/17/2023 10:00 AM COPPERSMITH HELPER): Continue flexeril 10mg Q8 PRN Trial gabapentin 100mg Q8 TID Topical lidocaine patches 4%, on for 12 hours/off for 12 hours Will send [place] 5/325 PRN #[id number], discussed that this will not be refilled regularly Continue heat PT order Seeing Neurosurgery next week and welcome their input on any further treatment interventions. Gastro-esophageal reflux disease without esophag itis 06/14/2023 Nonrheumatic aortic (valve) insufficiency 01/01/ 2024 Nonrheumatic mitral (valve) insufficiency 2023 Nonrheumatic tricuspid (valve) insufficiency 06/2023 Obstructive sleep apnea (adult) (pediatric) 06/2023 Chronic superficial gastritis without bleeding 1 07/19/2022 Stage 3a chronic kidney disease 07/21/2021 Assessment & Plan (12/21/2024 3:49 PM CDT): Stable at this time Assessment & Plan (07/21/2021 9:52 AM COPPERSMITH HELPER): Baseline creatine 1.3-1.5 Creatine Within patient;s baseline at 1.3 CTM Received IV fluids 500 ml on admission for creatine 1.59 Statin intolerance 07/18/2021 Assessment & Plan (07/18/2021 3:39 PM COPPERSMITH HELPER): History of statin intolerance -Continue ezetimibe and fenofibrate BPH (benign prostatic hyperplasia) 07/18/2021 Assessment & Plan (07/18/2021 3:59 PM COPPERSMITH HELPER): BPH s/p TURP -Continue home finasteride and tamsulosin HLD (hyperlipidemia) 07/18/2021 Assessment & Plan (12/21/2024 3:49 PM CDT): Lipid doing well Assessment & Plan (10/11/2024 11:06 AM CDT): Recommend statin therapy. Assessment & Plan (09/15/2024 10:52 AM CDT): Stable continue Zetia Assessment & Plan (08/31/2024 1:57 PM CDT): Impression: Chronic stable. Plan: Continue Zetia, fenofibrate Assessment & Plan (07/21/2021 8:10 AM COPPERSMITH HELPER): LDL ok while on non-statins due to intolerance. Continue present Rx for now Assessment & Plan (07/20/2021 8:10 AM COPPERSMITH HELPER): LDL ok while on non-statins due to intolerance. Continue present Rx for now Assessment & Plan (07/19/2021 7:57 AM COPPERSMITH HELPER): LDL ok while on non-statins due to intolerance. Continue present Rx for now Assessment & Plan (07/18/2021 3:52 PM COPPERSMITH HELPER): Lipid panel WNL -Continue ezetimibe and fenofibrate [...] 07/18/19 Assessment & Plan (07/18/2021 4:00 PM COPPERSMITH HELPER): PVOD s/p bilateral iliac stents Unstable angina 07/18/2021 Overview (07/18/2021): Added automatically from request for surgery [id number] Assessment & Plan (07/21/2021 8:10 AM COPPERSMITH HELPER): CP concerning for [place]. troponins normal, ruled out for TN. I have recommended coronary angiography and this is scheduled for today. Pt has PAD Continue IV heparin, follow labs and adjust. Continue aspirin, plavix, beta carrie, Patient asymptomatic. Cardiac catheterization scheduled for tomorrow. NPO after midnight. Assessment & Plan (07/20/2021 8:10 AM COPPERSMITH HELPER): CP concerning for [place]. troponins normal, ruled out for TN. I have recommended coronary angiography and this is scheduled for Wednesday. Pt has PAD and radial approach may be preferred. Continue IV heparin, follow labs and adjust. Continue aspirin, plavix, beta carrie, Patient asymptomatic. Cardiac catheterization scheduled for tomorrow. NPO after midnight. Assessment & Plan (07/19/2021 7:56 AM COPPERSMITH HELPER): CP concerning for [place]. troponins normal, ruled [...] (03/06/2021): Added automatically from request for surgery [id number] Presbyopia 02/03/2021 Assessment & Plan (08/12/2023 5:06 PM COPPERSMITH HELPER): -Noting increased difficulty with near vision while reading -Recommended trialing higher power reading glasses Assessment & Plan (02/03/2021 2:44 PM CDT): Correctable to 20/25 right eye (OD) and left eye (OS). Update specs as desired. Rosacea 09/18/2020 Metatarsalgia of right foot 07/04/2020 Overview (07/04/2020): Added automatically from request for surgery [id number] Sesamoiditis 07/04/2020 Overview (07/04/2020): Added automatically from request for surgery [id number] Painful orthopaedic hardware 07/04/2020 Overview (07/04/2020): Added automatically from request for surgery [id number] Achilles tendon contracture, right 07/04/2020 Overview (07/04/2020): Added automatically from request for surgery [id number] Pseudarthrosis after fusion or arthrodesis 02/28 Overview (02/28/2019): Added automatically from request for surgery [id number] Diabetes mellitus type 2 without retinopathy 05/2019 Assessment & Plan (12/10/2024 6:36 PM CDT): - Continue good BP/BG control Assessment & Plan (02/09/2023 3:33 PM CDT): Continue strict BS control, annual dilated eye exams. Assessment & Plan (06/17/2022 4:09 PM COPPERSMITH HELPER): Continue strict BS control, annual dilated eye [...] months Assessment & Plan (08/12/2023 5:05 PM COPPERSMITH HELPER): -Follow up exam for AMD; last visit [...] 6months Assessment & Plan (06/17/2022 9:41 AM COPPERSMITH HELPER): -No signs of exudation. -given the large [...] months Assessment & Plan (08/13/2021 3:12 PM COPPERSMITH HELPER): No signs of exudation. Per AREDS study, [...] today on exam and by OCT C/w ALFONZO, Alba. Continue to not smoke. Use sun protection [...] Diagnosis Date Anxiety Aortic stenosis Atrial fibrillation (HCC) Chronic pain disorder Depression Diabetes mellitus (HCC) Encounter for immunization Need for prophylactic vaccination and inoculation against influenza - Vaccines Prophylactic Need Against Influenza (Added by TW Conv) Fibula fracture Foot pain Fracture, fibula Heart attack (HCC) Heart failure (HCC) Hyperlipidemia Hypertension Low back pain Macular degeneration Panic attack Poor circulation Sleep apnea needs a new machine SSS (sick sinus syndrome) (HCC) Type 2 diabetes mellitus (HCC) CHF but patient states his most recent EF was 37%. Medical ROS: Angina present? No Cough or orthopnea? No Dyspnea on exertion? No Has sleep apnea/wears CPAP? No Patient is able to lie flat for at least 1 hour YES Current medications: Systemic medications per EMR Flomax/Hytrin Yes Coumadin/Plavix Yes on DAPT Allergies: Allergies Allergen Reactions Jxwiixa-Tag-Ufg Reductase Inhibitors Other (See comments) Pt has [...] toric lenses. The patient elected to target [place] with monofocal lens - Best phone number at which to reach patient: [phone] Planned Operation: CE/IOL of right eye Time: [...] follow. Assessment & Plan (06/17/2022 4:09 PM COPPERSMITH HELPER): NVS, follow. Assessment & Plan (02/23/2019 10:32 [...] (06/08/2018): Added automatically from request for surgery [id number] Palpitations 04/15/2018 CAD (coronary artery disease) 03/08/2018 Assessment & Plan (12/21/2024 3:49 PM CDT): No chest pain Assessment & Plan (09/04/2024 11:21 AM CDT): stable Assessment & Plan (07/18/2021 3:42 PM COPPERSMITH HELPER): CAD s/p CABG in 2010 (KAUR-LAD which is known to be an atretic graft; vein graft-marginal; and vein graft-2nd marginal branch; RCA occluded, with collateral revascularization) -Last [facility] in 11/2018 showed patent KAUR graft [...] Diabetes mellitus type II, non insulin dependent ([facility]) 01/15/2018 Assessment & Plan (12/21/2024 3:49 PM CDT): A1c excellent 5.9 Assessment & Plan (12/04/2024 8:09 AM CDT): >>ASSESSMENT AND PLAN FOR DM2 (DIABETES MELLITUS, TYPE 2) ([facility]) WRITTEN ON 07/18/2021 3:41 PM BY LAY WELDON NP -Hemoglobin A1c 6.1 -Hold home metformin while inpatient -SSI while admitted -Carb consistent diet -Accuchecks Assessment & Plan (12/04/2024 8:09 AM CDT): >>ASSESSMENT AND PLAN FOR DM2 (DIABETES MELLITUS, TYPE 2) ([facility]) WRITTEN ON 07/19/2021 7:58 AM BY RIGO CARROLL MD Follow glucose and rx with insulin Metformin held for now pending cath. Assessment & Plan (09/04/2024 11:21 AM CDT): Stable and doing well Assessment & Plan (07/21/2021 9:50 AM COPPERSMITH HELPER): Hemoglobin a1c 6.1 - diet controlled for now Metformin on hold for [facility] Continue to monitor. Assessment & Plan (07/20/2021 8:11 AM COPPERSMITH HELPER): Blood sugar stable. Follow-up blood sugar. Treat with insulin as appropriate Metformin being held. Assessment & Plan (02/28/2020 3:23 PM CDT): a1c at target, recommend annual eye exam. Feet are without lesions. Assessment & Plan (11/22/2018 4:43 PM CDT): On metformin 1000mg BID at home -LDSSI Assessment & Plan (11/14/2018 1:46 PM CDT): No ACADEMIC COACH Last A1C was 01/2018 but at goal [...] metoprolol Assessment & Plan (07/18/2021 3:53 PM COPPERSMITH HELPER): BP currently well controlled -Continue amlodipine, lisinopril [...] 09/15/2016 Assessment & Plan (07/18/2021 4:06 PM COPPERSMITH HELPER): -Continue metoprolol XL -Telemetry Assessment & Plan [...] stable Assessment & Plan (07/21/2021 8:10 AM COPPERSMITH HELPER): Pacer function stable Continue present Rx. Continue beta-carrie. Assessment & Plan (07/20/2021 8:10 AM COPPERSMITH HELPER): Pacer function stable Continue present Rx. Continue beta-carrie. 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 Maty Weber Assessment & Plan (02/28/2020 3:23 PM CDT): No palpitations, syncope Depressive disorder 03/15/2015 Panic disorder without agoraphobia 03/15/2015 Resolved Problems Problem Noted Date Diagnosed Date Resolved Date Pain in right foot 04/24/2022 4 LINUS (acute kidney injury) 07/18/2021 Assessment & Plan (07/21/2021 8:12 AM COPPERSMITH HELPER): Pt with CKDstage 3, CrCl 50 ml/min. Creatinine improved. Cath today Assessment & Plan (07/20/2021 8:11 AM COPPERSMITH HELPER): Pt with CKDstage 3, CrCl 50 ml/min. Repeat BMP today. IV hydration Mikal night before cath recommended. Assessment & Plan (07/19/2021 7:59 AM COPPERSMITH HELPER): Pt with CKDstage 3, CrCl 50 ml/min. Stable. IV hydration Mikal night before cath recommended. Assessment & Plan (07/18/2021 3:44 PM COPPERSMITH HELPER): LINUS (Cr 1.59 on admission) on CKD (baseline Cr 1.0-1.2) -S/p 500 ml LR bolus in ED -Follow BMPs Statin intolerance 02/10/2021 4 Syncope and collapse 12/30/2020 024 Encounter for screening colonoscopy 10/14/2020 06/17/2023 Overview (10/14/2020): Added automatically from request for surgery [id number] Joint pain 02/28/2020 06/17/2023 Assessment & Plan (04/29/2020 10:45 AM COPPERSMITH HELPER): Medrol dose pack Tramadol Q6 PRN (use, safety, s/e reviewed) Referral to Pain Management Assessment & Plan (02/28/2020 3:25 PM CDT): xrays noted, check rheum panel (? H/o pos JENNIFER) Confusion 01/04/2019 06/17/2023 Chest pain 01/15/2018 06/17/2023 Assessment & Plan (07/21/2021 9:47 AM COPPERSMITH HELPER): CAD s/p CABG (2010), admitted with chest [...] for chest pain -Telemetry monitoring NPO for C Assessment & Plan (01/16/2018 10:39 AM CDT): [...] often do you attend chur ch or presybeterian services? 1 to 4 times per year 05/02/2021 Do you belong to any clubs o r organizations such as [employer] groups, unions, fraternal or athletic groups, or [...] on file Legal Sex Male 11:34 PM COPPERSMITH HELPER Gender Identity Not on file Sexual [...] 12/21/2024 3:13 PM CDT Plan of Treatment Not on file [...] as needed Medical Devices Implanted Type Area Barrel Charrer Helper Device Identifier Shelf Expiration Date Model / Serial / Lot Terumo Medical Lewis Angio-Seal Vip 6fr Closere Device [id number] - [id number] - [id number] Implanted:Qty: 1 on 11/25/2022 by Eliecer Mixon MD at [facility] Collagen [employer]o [employer] Lewis 06/13/2023 [id number] / [id number] / [id number] Terumo [employer] Lewis Angio-Seal Vip 6fr Closere Device [id number] - [id number] - [id number] Implanted:Qty: 1 on 10/16/2024 by Clifford Sandy MD at [facility] Collagen Left: Common Femoral Artery Ter[employer]o [employer] Lewis 05/01/2025 [id number] / [id number] / [id number] Lead (Ra)-05/08/2015 Implanted:05/08/2015 by Maty Weber MD (Quantity not on file) Lead Heart Biotronik 350 974 SETROX S 53 / [id number] / Lead (Rv)-05/08/2015 Implanted:05/08/2015 by Maty Weber MD (Quantity not on file) Lead Heart Biotronik 350 975 SETROX S 60 / [id number] / [employer] Lens Tecnis Eyhance Iol [id number] - [id number] - [id number] Implanted:Qty: 1 on 12/08/2024 by Jaime Fuchs MD at [facility] Lens Right: Eye [place] [employer] [id number] 10/04/2027 [id number] / [id number] / 0 Pacemaker-05/08/2015 Implanted:05/08/2015 by Maty Weber MD (Quantity not on file) Pacemaker Left: Chest Biotronik [id number] ELNILSON AGUILA / [id number] / Synthes 201.814 2mm 3.5mm 14mm Self Tap Cruciform Cortex Screw Bone Stainless - S0 - [id number] Implanted:Qty: 1 on 08/06/2020 by Zoey Sexton MD at [facility] Screw Synthes I 201.814 / 0 / Medtronic Card Vasc Surgery 4.0 X 26mm Al Butler Rx Coronary Stent [id number] - [id number] - [id number] Implanted:Qty: 1 on 11/25/2022 by Clifford Sandy MD at [facility] Stent Medtronic Card Vasc Surgery 06/26/2025 [id number] / [id number] / [id number] Orthohelix Fbt-[id number] Maxtorque 4mm 32.5mm Cannulated Self Drill Foot Ankle Long Thread - [id number] Implanted:Qty: 1 on 06/28/2018 at [facility] Right: Foot Orthohelix MSD-010- 40-325L / / Orthohelix Jig Builder Helper-002-Pmx Ortholink 3 Hole [place] Foot Ankle Standard Plate Bone Nonsterile Latex Free - [id number] Implanted:Qty: 1 on 06/28/2018 at [facility] Right: Foot Orthohelix PLUMBING INSTALLER-002- PMX / / Orthohelix [id number] Maxlock Extreme 4mm 16mm Nonlock Foot Ankle Screw Bone Nonsterile - [id number] Implanted:Qty: 1 on 06/28/2018 at [facility] Right: Foot Orthohelix PLUMBING INSTALLER-011- 4016 / / Orthohelix [id number] Maxlock Extreme 4mm 18mm Nonlock Foot Ankle Screw Bone Nonsterile Latex Free - [id number] Implanted:Qty: 1 on 06/28/2018 at [facility] Right: Foot Orthohelix PLUMBING INSTALLER-011- 40-18 / / Orthohelix [id number]-013-9078 Maxlock Extreme 4mm 14mm Nonlock Foot Ankle Screw Bone Nonsterile Latex Free - [id number] Implanted:Qty: 1 on 06/28/2018 at [facility] Right: Foot Orthohelix PLUMBING INSTALLER-011- 4014 / / Daig Lewis/[employer] [id number] Angio-Seal Evolution 6fr .035in Guidewire Bypass Tube Suture - [id number] Implanted:Qty: 1 on 11/22/2018 by Sarah Vasquez MD at [facility] Daig Lewis/[employer] 08/12/2019 [id number] / / [id number] Medtronic Sofamor Danek [id number] Infuse 14mm 23mm Absorbable Sponge Sterile Water Syringe Needle - [id number] Implanted:Qty: 1 on 06/02/2019 by Zoey Sexton MD at [facility] Right: Foot Medtronic Inc 01/11/2021 [id number] / / [id number] Medline Industries Inc [id number] Plate Bone Medline Unite 0 D Medium Metatarsophalangeal Right Fusion Nonsterile - [id number] Implanted:Qty: 1 on 06/02/2019 by Zoey Sexton MD at [facility] Right: Foot Medline Industries Inc [id number] / / Medline Industries Inc [id number] Pin Fixation Medline Unite L10mm Od1.1mm - [id number] Implanted:Qty: 1 on 06/02/2019 by Zoey Sexton MD at [facility] Right: Foot Medline Industries Inc [id number] / / Medline Industries Inc [id number] Screw Bone Medline Unite L34mm Od4.5mm Head Nonsterile - [id number] Implanted:Qty: 1 on 06/02/2019 by Zoey Sexton MD at [facility] Right: Foot Medline Industries Inc [id number] / / Medline Industries Inc [id number] Screw Bone Medline Unite L16mm Od3.5mm Foot Ankle Nonlock - [id number] Implanted:Qty: 1 on 06/02/2019 by Zoey Sexton MD at [facility] Right: Foot [employer]line Industries Inc [id number] / / Medline Industries Inc [id number] Screw Bone Medline Unite L18mm Od3.5mm Foot Ankle Nonlock - [id number] Implanted:Qty: 1 on 06/02/2019 by Zoey Sexton MD at [facility] Right: Foot [employer]o [employer] Inc [id number] / / Chrono Therapeutics Inc [id number] Screw Bone Medline Unite L20mm Od3.5mm Foot Ankle Nonlock - [id number] Implanted:Qty: 2 on 06/02/2019 by Zoey Sexton MD at [facility] Right: Foot [employer]o [employer] Inc [id number] / / [place] [employer] Triathlon Cruciate Retain Bead Knee Left 5 Component Femoral Pa 5517-F-501 - [id number] Implanted:Qty: 1 on 04/24/2024 by Zbigniew Noel MD at [facility] [employer] [id number] 02/27/2029 5517-F-5 01 / / [id number] [employer] [employer] Triathlon Knee 6 Baseplate Tibial Tritanium 5536-B-600 - [id number] Implanted:Qty: 1 on 04/24/2024 by Zbigniew Noel MD at [facility] [employer] [id number] 11/08/2028 5536-B-6 00 / / [id number] [employer] Insert Tibial Triathlon 6 H11mm Knee Bearing Condylar Stabilize Sterile 0822-N-155-E - [id number] Implanted:Qty: 1 on 04/24/2024 by Zbigniew Noel MD at [facility] [employer] [id number] 12/19/2028 5531-G-6 11-E / / [id number] Explanted Type Area Barrel Charrer Helper Device Identifier Shelf Expiration Date Model / Serial / Lot Microaire [employer] Instruments [id number] Anne .45in 9in 1 [place] Orthopedic Wire Fixation - S0 - [id number] Explanted:Qty: 1 on 08/06/2020 by Zoey Sexton MD at [facility] Wire [employer] [id number] S / 0 / Description:Provisional fixa tion [employer] Instruments 3691-3442 Anne .062in 9in 1 [place] Smooth Wire Fixation - [id number] Explanted:Qty: 1 on 06/28/2018 at [facility] Right: Foot [employer] [id number] / / Description:Provisional fixa tion [employer] Instruments 5009-1941 Anne .062in 9in 1 [place] Smooth Wire Fixation - [id number] Explanted:Qty: 1 on 06/28/2018 at [facility] Right: Foot [employer] Instruments [id number] / / Description:Provisional fixa tion [employer] Instruments 4944-0101 Anne .062in 9in 1 [place] Smooth Wire Fixation - [id number] Explanted:Qty: 1 on 06/28/2018 at [facility] Right: Foot [employer] Instruments [id number] / / Description:Provisional fixa tion Screw Explanted:Qty: 5 on 08/06/2020 by Zoey Sexton MD at [facility] Other / 0 / Plate Explanted:Qty: 1 on 08/06/2020 by Drew Espinosa MD at [facility] Other / 0 / Procedures Procedure Name [...] DEVICE Routine 12/08/2024 3 :12 PM CDT WY XCAPSL CTRC RMVL INSJ IO LENS PROSTH [...] 2:35 PM CDT Coronary artery disease involving white [place] heart without angina pectoris, unspecified vessel or lesion type CORONARY FLOW VELOCITY (CFR) / INSTATANEOUS FLOW VELOCITY (IFR), 1ST VESSEL Routine 10/16/2024 2:35 PM CDT Coronary artery disease involving [place] heart without angina pectoris, unspecified vessel or lesion type RIGHT CORONARY ANGIOGRAPHY Routine 10/16/2024 2:35 PM CDT Coronary artery disease involving [place] heart without angina pectoris, unspecified vessel or [...] hyperlipidemia PSA SCREEN Routine 06/17/2023 10:13 AM COPPERSMITH HELPER Prostate cancer screening COLONOSCOPY 01/01/2021 12:16 PM CDT from Last 3 Months or Most Recently Relevant to Health Maintenance Results * DEVICE CHECK - REMOTE (01/06/2025 2:57 AM CDT) Anatomical Region Laterality Modality Other 01/06/2025 2:57 AM CDT Narrative 01/10/2025 2:37 PM CDT Interpretation Summary: Battery and Leads (BL) Normal parameters noted on battery and lead(s) --- 30 % remaining Presenting Rhythm (WY) Atrial Pacing-Ventricular Sensing (AP-VS) --- rate 70 Arrhythmic events (AE) No new arrhythmic events in monitoring period Transmission Information (TI) Device Summary Report Procedure Note Maty Weber MD - 01/10/2025 Interpretation Summary: Battery and Leads (BL) Normal parameters noted on battery and lead(s) --- 30 % remaining Presenting Rhythm (WY) Atrial Pacing-Ventricular Sensing (AP-VS) --- rate 70 Arrhythmic events (AE) No new arrhythmic events in monitoring period Transmission Information (TI) Device Summary Report Maty Weber MD CV CARDIAC SERVICES PROCEDURES Final Result * (ABNORMAL) POCT hemoglobin A1c (12/21/2024 3:14 PM CDT) Hemoglobin A1C, POC 5.9(A) 4.0 - 5.6 % Blood 12/21/2024 3:14 PM CDT Perry Romero MD POINT OF CARE TEST ORDERABLES Final Result * eGFR (12/14/2024 9:13 AM CDT) eGFR 66 >=60 mL/min/1. 73 m2 Comment: [...] ORDERABLES F inal Result Performing Organization Address City/[facility]/ZIP Co de Phone Number [facility] [address] Department [place] [address] * (ABNORMAL) Basic metabolic panel (12/14/2024 9:13 AM CDT) Sodium 135 135 - 145 mmol/L Potassium, pl 4.4 3.3 - 4.9 mmol/L [facility] Chloride 101 97 - 110 mmol/L [facility] CO2 21(L) 22 - 32 mmol/L [facility] Anion gap 13 2 - 15 mmol/L [facility] BUN 28(H) 6 - 25 mg/dL [facility] Creatinine 1.19 0.80 - 1.30 mg/dL [facility] Glucose 145 70 - 199 mg/dL [facility] [...] 2022. Calcium 9.4 8.5 - 10.3 mg/dL [facility] Blood 12/14/2024 9:13 AM CDT 12/14/2024 8:24 PM CDT Rigo Carroll MD LAB BLOOD ORDERABLES F inal Result Performing Organization Address City/[facility]/ZIP Co de Phone Number [facility] [address] Department [place] [address] * POCT glucose (12/08/2024 3:12 PM CDT) Glucose, POC 147 70 - 199 mg/dL Blood 12/08/2024 3:12 PM CDT 12/08/2024 3:12 PM CDT us Jaime Fuchs MD LAB POCT ORDERABLES - DEVICE Final Result Performing Organization Address [facility] Co de Phone Number [facility] [place] [address] * POCT glucose (12/08/2024 1:09 PM CDT) Pathologist [facility] Glucose, POC 115 70 - 199 mg/dL Blood 12/08/2024 1:09 PM CDT 12/08/2024 1:09 PM CDT us Jaime Fuchs MD LAB POCT ORDERABLES - DEVICE Final Result Performing Organization Address [facility] Phone Number [facility] [employer] [place] [address] * IOL Biometry - OU - Both Eyes (12/04/2024 10:00 AM CDT) Anatomical Region Laterality Modality Head Ophthalmic Axial Measurements Narrative 12/10/2024 6:29 PM CDT Adequate for preoperative surgical planning. Geoffrey Ramon MD PhD OPHTH ULTRASOUND Final Result * SCAN - LABS (12/01/2024 6:58 AM CDT) us Perry Romero MD Final Result * SCAN - LABS (11/29/2024 8:40 AM CDT) us Perry Romero MD Final Result * SCAN - LABS (11/25/2024 4:57 PM CDT) us Perry Romero MD Final Result * (ABNORMAL) [...] MD LAB BLOOD ORDERABLES F inal Result [facility] [address] Department [place] [address] * (ABNORMAL) Basic metabolic panel (11/17/2024 8:52 AM CDT) Pathologist [facility] Sodium 137 135 - 145 mmol/L Potassium, pl 4.3 3.3 - 4.9 mmol/L [facility] Chloride 99 97 - 110 mmol/L [facility] CO2 23 22 - 32 mmol/L [facility] Anion gap 15 2 - 15 mmol/L [facility] BUN 17 6 - 25 mg/dL [facility] Creatinine 1.31(H) 0.80 - 1.30 mg/dL [facility] Glucose 121 70 - 199 mg/dL [facility] Comment: Interpretive Data Fasting glucose >/= 126 [...] 8.5 - 10.3 mg/dL [facility] Blood 11/17/2024 8:52 AM CDT 11/17/2024 6:20 PM CDT Result [facility] Rigo Carroll MD LAB BLOOD ORDERABLES F inal Result [facility] [address] [address] Department of Laboratories [place] [id number] * SCAN - LABS (11/12/2024 8:45 AM [...] MD LAB BLOOD ORDERABLES F inal Result [facility] [address] Department [place] [address] * Basic metabolic panel (10/18/2024 [...] Glucose 130 70 - 199 mg/dL [facility] Comment: [...] Calcium 10.0 8.5 - 10.3 mg/dL [facility] Blood 10/18/2024 10:1 0 AM CDT 10/18/2024 3:54 PM CDT Rigo Carroll MD LAB BLOOD ORDERABLES F inal Result Performing Organization Address City/[facility]/ZIP Co de Phone Number [facility] [address] Department [place] [address] * POCT glucose (10/16/2024 3:20 PM CDT) [facility] Signature Glucose, POC 95 70 - 199 mg/dL Blood 10/16/2024 3:20 PM CDT 10/16/2024 3:20 PM CDT Clifford Sandy MD LAB POCT ORDERABLES - DEVICE Final Result Performing Organization Address City/[facility] Co de Phone Number [facility] Department [place] [address] * RIGHT CORONARY ANGIOGRAPHY, CORONARY FLOW VELOCITY [...] and OM2 Known atretic KAUR to LAD DEVELOPMENT AND PLANNING ENGINEER of the mid RCA THERAPEUTIC RECOMMENDATIONS: Left [...] result were not included. Cardiovascular Procedure Center [facility] [address], [address] [place], [place] [id number] CORONARY AND GRAFT REPORT Patient: Vicky Youssef : 1955 MR number: [id number] Date of Service: 10/16/2024 Wet Finisher: Clifford Sandy MD Fellow: Salvador Arita MD and Madalyn Reynaga MD Referring physician: Rigo Carroll MD INDICATION: worsening LV function, dyspnea PATIENT CLINICAL PROFILE: Vicky Youssef is a 69 y.o. male with a history of CABG s/p KAUR-LAD (atretic), SVG-Ramus/high OM, SVG-OM2, PCI to LM-LAD with a 4.0 mm Al Butler SHEMAR, mild LV dysfunction, who is presenting with worsening LV dysfunction and some dyspnea on exertion. PROCEDURE: The risks, benefits and alternatives of the procedures and moderate sedation were explained to the patient and informed consent was obtained. The patient was brought to the union laborer and placed on the table. Bilateral groins were prepped and draped in the usual sterile fashion. Ultrasound guidance was used to obtain access. I provided direct xlko-ma-dhhz moderate conscious sedation which administered by independent [...] The RCA has slow flow and a DEVELOPMENT AND PLANNING ENGINEER in the mid segment which is unchanged [...] 231(H) 123 - 168 sec POC Performer [id number] [facility] POC Device Number [id number] [facility] Blood 10/16/2024 2:30 PM CDT 10/16/2024 2:30 PM CDT Result [facility] Clifford Sandy MD LAB POCT ORDERABLES - DEVICE Final Result Performing Organization Address [facility] Co de Phone Number [facility] Department [place] [address] * (ABNORMAL) POCT Activated clotting time, low range (10/16/2024 2:11 PM CDT) ACT 269(H) 123 - 168 sec POC Performer [id number] [facility] POC Device Number [id number] [facility] Blood 10/16/2024 2:11 PM CDT 10/16/2024 2:11 PM CDT Clifford Sandy MD LAB POCT ORDERABLES - DEVICE Final Result [facility] Department [place] [address] * CBC without differential (10/16/2024 12:35 PM CDT) WBC See Comment 3.80 - 9.90 Comment:Credited, specimen c lotted. Hgb See Comment 13.0 - 17.5 [facility] Comment:Credited, specimen c lotted. Hct See Comment 38.9 - 50.3 [facility] Comment:Credited, specimen c lotted. Plt See Comment 150 - 400 [facility] Comment:Credited, specimen c lotted. MPV See Comment 9.1 - 12.3 [facility] Comment:Credited, specimen c lotted. RBC See Comment 4.30 - 5.80 [facility] Comment:Credited, specimen c lotted. MCV See Comment 81.3 - 96.4 [facility] Comment:Credited, specimen c lotted. MCH See Comment 27.1 - 33.3 [facility] Comment:Credited, specimen c lotted. MCHC See Comment 32.3 - 35.7 [facility] Comment:Credited, specimen c lotted. RDW CV See Comment 11.1 - 14.9 [facility] Comment:Credited, specimen c lotted. RDW SD See Comment 35.7 - 48.1 [facility] Comment:Credited, specimen c lotted. NRBC abs See Comment 0.00 - 0.01 [facility] Comment:Credited, specimen c lotted. Blood 10/16/2024 12:3 5 PM CDT 10/16/2024 2:05 PM CDT Narrative [facility] - 10/16/2024 2:33 PM CDT To be drawn after hydration bolus complete us Clifford Sandy MD LAB BLOOD ORDERABLES Final Result Performing Organization Address City/[facility]/ZIP Co de Phone Number [facility] Department [place] [address] * POCT glucose (10/16/2024 9:19 AM CDT) Glucose, POC 118 70 - 199 mg/dL Blood 10/16/2024 9:19 AM CDT 10/16/2024 9:19 AM CDT Clifford Sandy MD LAB POCT ORDERABLES - DEVICE Final Result Performing Organization Address City/[facility]/ZIP Co de Phone Number [facility] Department [place] [address] * ECG 12 lead (10/16/2024 8:32 AM CDT) Ventricular Rate EKG/Min 70 BPM [facility] Atrial Rate 70 BPM [facility] WY-Interval (MSEC) 304 ms [facility] QRS-Interval (MSEC) 132 ms [facility] QT-Interval (MSEC) 374 ms [facility] QTc 403 ms [facility] P Gomer 2 degrees [facility] R Gomer 1 degrees [facility] T Gomer 252 degrees [facility] Diagnosis Atrial-paced rhythm with prolonged AV conduction Left ventricular hypertrophy with QRS widening and repolarization abnormality ( Sokolow-Pereira , [place] product ) Cannot rule out Septal infarct , age undetermined Abnormal ECG When compared with ECG of 25-NOV-2022 12:06, no significant change Confirmed by ERNESTINE TAVERAS M.D ([id number]) on 10/17/2024 3:04:55 PM [facility] 10/16/2024 8:32 AM CDT 10/17/2024 3:04 PM CDT us Clifford Sandy MD ECG ORDERABLES Lilia l Result Performing Organization Address City/[facility]/ZIP Co de Phone Number [facility] * CTA Abdominal Aorta And Bilateral Iliofemoral [...] Capillary blood 09/21/2023 9 :27 AM CDT us Perry Romero MD POINT OF CARE TEST ORDERABLES Final Result * PSA screen (06/17/2023 10:13 AM COPPERSMITH HELPER) Pathologist [facility] [...] malignant disease. Blood 06/17/2023 10:1 3 AM COPPERSMITH HELPER 06/17/2023 Narrative [facility] - 06/18/2023 6:11 AM COPPERSMITH HELPER Performed at: [address] [place] [id number] House Steward/Stewardess: Edgar Menard PhD, Phone: [phone] Mamie Rose PRE K SPECIAL EDUCATION TEACHER LAB BLOOD ORDERABLES Fin al Result [facility] * COLONOSCOPY (01/01/2021 12:16 PM CDT) Anatomical Region Laterality Modality Other Narrative Procedure Note Emily Zeng MD - 01/01/2021 12:16 PM CDT [facility] ENDOSCOPY [facility] Patient Name: Vicky Youssef Procedure Date: 01/01/2021 12:16 PM Date of : 1955 Admit Type: Outpatient Age: 65 Gender: Male Attending MD: Huy Reed Room: [facility] ENDOSCOPY ROOM 3 Note Status: Finalized Procedure: [...] The scope was passed under direct vision.The [facility] [id number] endoscope was introducedthrough the anus and advanced to the cecum, identified by appendiceal orifice and ileocecal valve. The colonoscopy was performed without difficulty. The patient tolerated the procedure well. The qualityof the bowel preparation was evaluated using the BBPS (Orange Bowel Preparation Scale) with scores of:Right Colon [...] Recently Relevant to Health Maintenance Insurance MEDICARE [facility] MEDICARE SUPPLEMENT [facility] MEDICARE [facility] MEDICARE SUPPLEMENT [facility] MEDICARE SUPPLEMENT MEDICARE [facility] BLUE CROSS MEDICARE SUPPLEMENT Advance Directives For more information, please contact: [phone] * Full Code (Latest Code Status on [...] 4:34 PM 05/02/2021 4:45 PM Care Teams Crm Marketing Specialist Relationship Specialty Start Date End Date Perry Romero MD PCP - General Internal Medicine 02/23/20 Rigo Carroll MD Toaster Element Repairer Cardiology 05/23/19 Love Jones, PT Physical Therapist Physical Therapy 09/28/22 Arthur Bateman MD [address] [address] Referring Physician Anesthesiology 09/28/22 Karl Cha MD [address] [place] [address] Referring Physician Orthopedic Surgery 11/24/23
[2025-01-11 10:09] LABS: Anion Gap 10 mmol/L (4-12); Blood Urea Nitrogen 21 mg/dL (9-20); Calcium 10.0 mg/dL (8.4-10.2); Carbon Dioxide 24 mmol/L (22-30); Chloride 104 mmol/L (98-107); Estimated Glomerular Filt Rate 54; Glucose 111 mg/dL (65-110); Potassium 4.4 mmol/L (3.4-5.0); Sodium 138 mmol/L (137-145)
== END 2025-01-11 09:18 | disposition home or self-care (01) ==
LOC: ANHSURGERY 09:21
PROVIDERS: Anesthesiology; PCP Internal Medicine; Visit Provider Urology
DX: N32.9 Bladder disorder, unspecified (principal); E11.9 Type 2 diabetes mellitus without complications
CPT/HCPCS: 36415; 80048; 87086

== ENCOUNTER 2025-01-16 00:49 | Day surgery (SDC) | payer MEDICARE, SELFPAY ==
[2025-01-09 08:41] VITALS: BMI 28.2
--- NOTE | 2025-01-09 08:48 | PC.NURSE ---
Report to the Outpatient Waiting Room, entrance under the green pavilion located off [facility], at time _1215_ on date _[id number]_. Planned Procedure Time: _215pm_.? Time changes happen often and if your time is changed the preop area will call you the afternoon before. - You and your visitor will be asked to self-screen and do not enter if you have any COVID symptoms. Please call surgeon if you need to reschedule. - A mask is optional within the hospital at this time. Patients may have clear liquids (water, carbonated beverages, clear teas, apple juice) until 3 hours prior to surgery with a maximum of 20 ounces. - No food from midnight until time of surgery and no smoking, or chewing tobacco (or any form of nicotine). No chewing gum, candy or mints. Take only the following medications with a SIP of water on the morning of surgery: __Amlodipine and Metoprolol DO NOT STOP ANY OF YOUR OTHER PRESCRIPTION MEDICATIONS PRIOR TO SURGERY EXCEPT THE FOLLOWING Hold all vitamins and supplements for 3 days per anesthesiologist. Medications to discontinue per physician ___Patient holding Clopedegrel and Aspirin with last dose today per office instructions.____ Date to take last dose Please no make-up, nail luxembourgish, hairspray, perfume, deodorant, or body powder the day of surgery.? No jewelry (including any body piercings) or valuables the day of surgery, leave them at home.? Please take a shower or bath the night before, or the morning of, surgery with an antibacterial soap.? Wear comfortable, loose fitting clothing.? - Jewelry must be removed prior to entering the operating room.? Rings and piercings that are not removed may be cut off. - The hospital will not accept responsibility for valuables.? - Please leave all valuables, including medications, at home the day of surgery. If you are going home after surgery, a licensed tanker driver must drive you home.? - NO public transportation without another adult if you receive anesthesia. - We recommend that an adult stay with you for 24 hours following discharge. - We also recommend that you do not drive, make important decision, drink alcoholic beverages, or take any drugs that were not prescribed by your health care provider for at least 24 hours after your discharge time. Follow any additional instructions given to you from your surgeon. Telephone instructions given to __David___and asked if any additional questions and then verbalized understanding. Patient advised to call surgeon office or pre surgery nurse liaison [phone] if any additional questions.
[2025-01-16] VITALS (8 sets, daily range): BP systolic 96–148; BP diastolic 67–82; PULSE 70–75; RESP 14–20; TEMP 36.2–36.4; O2SAT 93–98; BMI 28.8
--- OUTSIDE RECORDS SUMMARY | 2025-01-16 00:52 | XMS_ITS | Clinical Summary ---
Author Organization [facility] [employer] Address [address] [place] [address] Care Team Providers Care Business Applications Specialist Name Role Phone Tim Sanchez MD Primary Care Provider [phone] [facility] [employer],non-owned Affiliates and Associated Physician Practices is amultiple site organization consisting of ambulatory clinics and hospital sitesin [place], [place], [place] and [place]. This disclosure is being madepursuant to the Care Everywhere program and may not contain all information available regarding this patient. Last updated 18.[facility] [employer] Allergies No known active allergies Medications * [...] (11/07/2020): Added automatically from request for surgery [id number] Rosacea 09/18/2020 Achilles tendon contracture, right 07/04/2020 Overview (11/07/2020): Added automatically from request for surgery [id number] Metatarsalgia of right foot 07/04/2020 Overview (11/07/2020): Added automatically from request for surgery [id number] Sesamoiditis 07/04/2020 Overview (11/07/2020): Added automatically from request for surgery [id number] Joint pain 02/28/2020 Overview (11/07/2020): Last Assessment & Plan: Medrol dose pack Tramadol Q6 PRN (use, safety, s/e reviewed) Referral to Pain Management 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 Transferred to [facility], s/p [facility] on 11/22. 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
--- OUTSIDE RECORDS SUMMARY | 2025-01-16 00:52 | XMS_ITS | Encounter Summary ---
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
--- OUTSIDE RECORDS SUMMARY | 2025-01-16 00:52 | XMS_ITS | Encounter Summary ---
Author Organization [facility] Address [address] [place] [address] Care Team Providers Care Carton Making Machine Operator Name Role Phone Leonidas Carroll MD Unavailable [phone] Perry Romero MD Primary Care Provider Love Jones PT Unavailable Unavailab Arthur Law MD Unavailable Karl Cha MD Unavailable [phone] Encounter Details Date Type Department Care Team (Latest Contact Info) Description 01/12/2025 Results Follow-Up [facility] [address] [address] Raisa Blanco, WILFRIDO [address] [facility] [address] [place] [address] Erythrocyte sedimentation rate, CRP (acute phase), CBC with auto differential, Additional followed-up results: 6 Social History Tobacco Use Types Packs/Day Years Used Date Smoking Tobacco: Former Cigarettes 1 28 1 975 - 2003 Passive Smoke Exposure: Past Smokeless Tobacco: Never [...] often do you attend chur ch or latter-day services? 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 Liver enzymes are normal.Vitamin B12 level is normal. Inflammatory markers are normal. PSA is normal. CBC is normal. ----- Message ----- From: Interface, Lab Results In Sent: 01/11/2025 7:52 PM CDT To: Raisa Blanco NP documented in this encounter Plan of Treatment [...] on filedocumented in this encounter Care Teams Carton Making Machine Operator Relationship Specialty Start Date End Date Perry Romero MD PCP - General Internal Medicine 02/23/20 Leonidas Carroll MD Relish Blender Cardiology 05/23/19 Love Jones, PT Physical Therapist Physical Therapy 09/28/22 Arthur Bateman MD [address] [place] [address] Referring Physician Anesthesiology 09/28/22 Karl Cha MD [address] [place] [address] Referring Physician Orthopedic Surgery 11/24/23 documented as of this encounter
--- OUTSIDE RECORDS SUMMARY | 2025-01-16 00:52 | XMS_ITS | Encounter Summary ---
Author Organization [facility] Address [address] [place] [address] Phone Care Team Providers Care Pulp Machine Operator Name Role Phone Tim Sanchez MD Primary Care Provider [phone] Lina Mcadams MD Primary Care Provide r Deacon Eisenebrg DO Primary Care Provider [phone] Leonidas Carroll MD Unavailable [phone] Perry Romero MD Primary Care Provider [phone] Love Jones PT Unavailable Unavailab Arthur Law MD Unavailable Karl Cha MD Unavailable [phone] Encounter Details Date Type Department Care Team (Late st Contact Info) Description 05/13/2015 Orders Only [facility] CAR CLINCONV ProviderHeena MD [address] [place] [address] Social History Tobacco Use Types Packs/Day Years Used Date Smoking Tobacco: Never Assessed Sex and Gender Information Value Date Recorded Sex Assigned at Not on file 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 Gender Identity Not on file Sexual [...] on filedocumented in this encounter Care Teams Pulp Machine Operator Relationship Specialty Start Date End Date Tim Sanchez MD [address] [facility] [address] [place] [address] PCP - General 09/29/16 01/13/18 Lina Mcadams MD [address] [facility] [address] [place] [address] PCP - General 01/14/18 11/21/18 Deacon Eisenberg DO [address] [facility] [address] [place] [address] PCP - General 11/22/18 02/22/20 Perry Romero MD [address] [address] PCP - General Internal Medicine 02/23/20 Leonidas Carroll MD [address] [facility] [address] [place] [address] Welding Specialist Cardiology 05/23/19 Love Jones, PT Physical Therapist Physical Therapy 09/28/22 Arthur Bateman MD [address] [facility] [address] [place] [address] Referring Physician Anesthesiology 09/28/22 Karl Cha MD [address] [facility] [address] [place] [address] Referring Physician Orthopedic Surgery 11/24/23 documented as of this encounter
--- OUTSIDE RECORDS SUMMARY | 2025-01-16 00:52 | XMS_ITS | Encounter Summary ---
Author Organization [facility] Address [address] [place] [address] Phone Care Team Providers Care Drawer In Plain Loom Name Role Phone Lina Mcadams MD Primary Care Provide r Deacon Eisenberg DO Primary Care Provider [phone] Leonidas Carroll MD Unavailable [phone] Perry Romero MD Primary Care Provider [phone] Love Jones PT Unavailable Unavailab Arthur Law MD Unavailable Karl Cha MD Unavailable [phone] Encounter Details Date Type Department Care Team (Late st Contact Info) Description 07/08/2018 Telephone [facility] Cardiology [address] 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 Gender Identity Not on file Sexual Orientation Not on file documented as of this encounter Plan of Treatment Not on file documented as of this encounter Visit Diagnoses Not on filedocumented in this encounter Care Teams Drawer In Plain Loom Relationship Specialty Start Date End Date Lina Mcadams MD [address] [place] [address] PCP - General 01/14/18 11/21/18 Deacon Eisenberg DO [address] [place] [address] PCP - General 11/22/18 02/22/20 Perry Romero MD [address] [address] PCP - General Internal Medicine 02/23/20 Leonidas Carroll MD [address] [place] [address] Protocol Officer Cardiology 05/23/19 Love Jones, PT Physical Therapist Physical Therapy 09/28/22 Arthur Bateman MD [address] [address] Referring Physician Anesthesiology 09/28/22 Karl Cha MD [facility] [place] [address] Referring Physician Orthopedic Surgery 11/24/23 documented as of this encounter
--- OUTSIDE RECORDS SUMMARY | 2025-01-16 00:52 | XMS_ITS | Encounter Summary ---
Author Organization [facility] Address [address] [place] [address] Care Team Providers Care Dispute Resolution Specialist Name Role Phone Leonidas Carroll MD Unavailable [phone] Perry Romero MD Primary Care Provider [phone] Love Jones PT Unavailable Unavailab Arthur Law MD Unavailable Karl Cha MD Unavailable [phone] Encounter Details Date Type Department Care Team (Late st Contact Info) Description 10/28/2021 Telephone [facility] Radiology [address] [place], [place] [id number] Alberto Pack MD PhD [address] [place] [address] Social History Tobacco Use Types Packs/Day Years [...] 05/02/2021 How often do you attend [facility] or restorationism services? 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
--- OUTSIDE RECORDS SUMMARY | 2025-01-16 00:52 | XMS_ITS | Encounter Summary ---
Author Organization [facility] Address [address] [place] [address] Phone Care Team Providers Care Agricultural Equipment Salesperson Name Role Phone Leonidas Carroll MD Unavailable [phone] Perry Romero MD Primary Care Provider Love Jones PT Unavailable Unavailab Arthur Law MD Unavailable Karl Cha MD Unavailable [phone] Encounter Details Date Type Department Care Team (Late st Contact Info) Description 11/18/2024 Results Follow-Up [facility] Cardiology [address] [facility] Advanced Medicine 8th [place] [address] [place] [address] Leonidas Carroll MD [address] [facility] [address] [place] [address] Basic metabolic panel, eGFR Social [...] often do you attend [facility] or jain services? 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 Gender Identity Not on file Sexual [...] BLOOD ORDERABLES F inal Result [facility] [address] [address] [place] [address] documented in this encounter Visit Diagnoses Diagnosis High risk medications (not anticoagulants) long-term use- Primary Encounter for long-term (current) use of other medications documented in this encounter Care Teams Agricultural Equipment Salesperson Relationship Specialty Start Date End Date Perry Romero MD PCP - General Internal Medicine 02/23/20 Leonidas Carroll MD Bunch Maker Hand Cardiology 05/23/19 Love Jones, PT Physical Therapist Physical Therapy 09/28/22 Arthur Bateman MD [address] [address] Referring Physician Anesthesiology 09/28/22 Karl Cha MD [address] [place] [address] Referring Physician Orthopedic Surgery 11/24/23 documented as of this encounter
--- OUTSIDE RECORDS SUMMARY | 2025-01-16 00:52 | XMS_ITS | Encounter Summary ---
Author Organization [facility] Address [address] [place] [address] Phone Care Team Providers Care Clinical Trials Manager Name Role Phone Tim Sanchez MD Primary Care Provider [phone] Lina Mcadams MD Primary Care Provide r Deacon Eisenberg DO Primary Care Provider [phone] Leonidas Carroll MD Unavailable [phone] Perry Romero MD Primary Care Provider [phone] Love Jones PT Unavailable Unavailab Arthur Law MD Unavailable Karl Cha MD Unavailable [phone] Encounter Details Date Type Department Care Team (Late st Contact Info) Description 09/10/2015 Orders Only [facility] CAR CLINCONV ProviderHeena MD [address] [place] [address] Social History Tobacco Use Types Packs/Day Years Used Date Smoking Tobacco: Never Assessed Sex and Gender Information Value Date Recorded Sex Assigned at Not on file 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 Gender Identity Not on file Sexual Orientation [...] on filedocumented in this encounter Care Teams Clinical Trials Manager Relationship Specialty Start Date End Date Tim Sanchez MD [address] [facility] [address] [place] [address] PCP - General 09/29/16 01/13/18 Lina Mcadams MD [address] [facility] [address] [place] [address] PCP - General 01/14/18 11/21/18 Deacon Eisenberg DO [address] [facility] [address] [place] [address] PCP - General 11/22/18 02/22/20 Perry Romero MD [address] [address] PCP - General Internal Medicine 02/23/20 Leonidas Carroll MD [address] [facility] [address] [place] [address] Brake Reliner Cardiology 05/23/19 Love Jones, PT Physical Therapist Physical Therapy 09/28/22 Arthur Bateman MD [address] [place] [address] Referring Physician Anesthesiology 09/28/22 Karl Cha MD [address] [facility] [address] [place] [address] Referring Physician Orthopedic Surgery 11/24/23 documented as of this encounter
--- OUTSIDE RECORDS SUMMARY | 2025-01-16 00:52 | XMS_ITS | Encounter Summary ---
Author Organization [facility] Address [address] [place] [address] Phone Care Team Providers Care Bankruptcy Assistant Name Role Phone Tim Sanchez MD Primary Care Provider [phone] Lina Mcadams MD Primary Care Provide r Deacon Eisenberg DO Primary Care Provider [phone] Leonidas Carroll MD Unavailable [phone] Perry Romero MD Primary Care Provider [phone] Love Jones PT Unavailable Unavailab Arthur Law MD Unavailable Karl Cha MD Unavailable [phone] Encounter Details Date Type Department Care Team (Late st Contact Info) Description 11/24/2015 Orders Only [facility] CAR CLINCONV ProviderHeena MD [address] [place] [address] Social History Tobacco Use Types Packs/Day Years Used Date Smoking Tobacco: Never Assessed Sex and Gender Information Value Date Recorded Sex Assigned at Not on file 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 [address] [place] [address] PCP - General 01/14/18 11/21/18 Deacon Eisenberg DO [address]43 [facility] [address] [place] [address] PCP - General 11/22/18 02/22/20 Perry Romero MD [address] [address] PCP - General Internal Medicine 02/23/20 Leonidas Carroll MD [address] [facility] [address] [place] [address] Heel Cementer Machine Cardiology 05/23/19 Love Jones, PT Physical Therapist Physical Therapy 09/28/22 Arthur Bateman MD [address] [facility] [address] [place] [address] Referring Physician Anesthesiology 09/28/22 Karl Cha MD [address] [facility] [address] [place] [address] Referring Physician Orthopedic Surgery 11/24/23 documented as of this encounter
--- OUTSIDE RECORDS SUMMARY | 2025-01-16 00:52 | XMS_ITS | Encounter Summary ---
Author Organization [facility] Address [address] [place] [address] Phone Care Team Providers Care Industrial Education Instructor Name Role Phone Leonidas Carroll MD Unavailable [phone] Perry Romero MD Primary Care Provider [phone] Love Jones PT Unavailable Unavailab Arthur Law MD Unavailable Karl Cha MD Unavailable [phone] Reason for Visit * Reason Onset Date Comments call transfer 01/15/2025 Encounter Details Date Type Department Care Team (Late st Contact Info) Description 01/15/2025 Telephone [facility] Ophthalmology [address] [place] [address] Otis Del Real call transfer Social History Tobacco Use Types Packs/Day Years [...] you attend [facility] or quaker services? 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 Pt will get a reminder call as it approaches. * Telephone Encounter - GtOtis - 01/15/2025 9:13 AM CDT Call Reason: reschedule post op Call Transferred: Yes Transferred to: Betty Dickson documented in this encounter Plan of Treatment Not on file documented as of this encounter Goals Goal Patient Goal Type Associated Problems Recent Progress Patient-Stated? Author CCM Chronic Pain Care Plan Chronic Care Management Worsening( 1:54 PM CDT) No Brsisa Muse, MCKENZIE Note: Problem: Chronic Pain Goals: 1. Minimize further functional decline 2. Maximize quality of life 3. Control pain Strategies: - Activity/exercise program recommendation - Conservative stepwise pain medicine strategy with multi-disciplinary approach - Recommend healthy lifestyle strategies and compensatory methods as needed documented as of this encounter Visit Diagnoses Not on filedocumented in this encounter Care Teams Industrial Education Instructor Relationship Specialty Start Date End Date Perry Romero MD PCP - General Internal Medicine 02/23/20 Leonidas Carroll MD Range Manager Cardiology 05/23/19 Love Jones, PT Physical Therapist Physical Therapy 09/28/22 Arthur Bateman MD [address] [address] Referring Physician Anesthesiology 09/28/22 Karl Cha MD [address] [place] [address] Referring Physician Orthopedic Surgery 11/24/23 documented as of this encounter
--- OUTSIDE RECORDS SUMMARY | 2025-01-16 00:52 | XMS_ITS | Encounter Summary ---
Author Organization [facility] Address [address] [place] [address] Phone Care Team Providers Care Rhic Systems Safety Engineer Name Role Phone Leonidas Carroll MD Unavailable [phone] Perry Romero MD Primary Care Provider [phone] Love Jones PT Unavailable Unavailab Arthur Law MD Unavailable Karl Cha MD Unavailable [phone] Encounter Details Date Type Department Care Team (Late st Contact Info) Description 06/22/2024 Telephone [facility] Cardiology [address] [facility] 8th [place] [address] [place] [address] Leonidas Carroll MD [address] [facility] [address] [place] [address] Social History Tobacco Use Types [...] week 05/02/2021 How often do you attend [facility] or worship services? 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
--- OUTSIDE RECORDS SUMMARY | 2025-01-16 00:52 | XMS_ITS | Encounter Summary ---
Author Organization [facility] Healthcare Address [address] [place] [address] Care Team Providers Care Any Commodity Buyer Name Role Phone Leonidas Carroll MD Unavailable [phone] Perry Romero MD Primary Care Provider [phone] Love Jones PT Unavailable Unavailab Arthur Law MD Unavailable Karl Cha MD Unavailable [phone] Encounter Details Date Type Department Care Team (Late st Contact Info) Description 07/08/2023 Telephone [facility] [address] [facility] Advanced Medicine [address] [place], [place] [id number] Arthur Bateman MD [address] [facility] [address] [place] [address] Social History Tobacco Use Types Packs/Day Years [...] week 05/02/2021 How often do you attend [facility] or hindu services? 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
--- OUTSIDE RECORDS SUMMARY | 2025-01-16 00:52 | XMS_ITS | Encounter Summary ---
Author Organization [facility] Address [address] [place] [address] Phone Care Team Providers Care Wet End Operator Name Role Phone Deacon Eisenberg DO Primary Care Provider [phone] Provider, None Primary Care Provider Unavailabl e Encounter Details Date Type Department Care Team (Late st Contact Info) Description 02/15/2020 Transcribe Orders [facility] Preop/Pacu II 1 [place] [id number] Anish Martinez MD [address] [place] [address] Pre-op testing (Primary Dx) Social History Tobacco [...] ABO TYPING AB 02/20/2020 2:05 PM CDT [facility]OD [facility] RH Positive 02/20/2020 2:05 PM CDT [facility] ABSC Negative 02/20/2020 2:05 PM CDT [facility] Blood Venipuncture / Unknown 02/20/2020 10:52 AM CDT 02/20/2020 11:43 AM CDT us Anish Martinez MD BLOOD BANK ORDERABLES Edited Result - Final [facility]OD [facility] #[address] [place] [address] documented in this encounter Visit Diagnoses Diagnosis Pre-op testing- Primary Preoperative examination, unspecified documented in this encounter Care Teams Wet End Operator Relationship Specialty Start Date End Date Deacon Eisenberg DO [address] [address] PCP - General Family Medicine 11/15/19 02/19/20 Provider, None [place] PCP - General 02/20/20 documented as of this encounter
--- OUTSIDE RECORDS SUMMARY | 2025-01-16 00:52 | XMS_ITS | Encounter Summary ---
Author Organization [facility] Healthcare Address [address] [place] [address] Care Team Providers Care Hemstitcher Name Role Phone Leonidas Carroll MD Unavailable [phone] Perry Romero MD Primary Care Provider [phone] Love Jones PT Unavailable Unavailab Arthur Law MD Unavailable Karl Cha MD Unavailable [phone] Reason for Visit * Reason Onset Date Comments pre proc blood thinner 07/24/2021 Encounter Details Date Type Department Care Team (Late st Contact Info) Description 07/24/2021 Telephone [facility] [place] [facility] [address] [facility] Advanced Medicine [address] [place], [place] [id number] Arthur Bateman MD [address] [facility] [address] [place], [place] [id number] pre proc blood thinner Social History Tobacco [...] often do you attend chur ch or latter day services? 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
--- OUTSIDE RECORDS SUMMARY | 2025-01-16 00:52 | XMS_ITS | Encounter Summary ---
Author Organization [facility] Address [address] [place] [address] Phone Care Team Providers Care Concrete Mixer Name Role Phone Lina Mcadams MD Primary Care Provide r Deacon Eisenberg DO Primary Care Provider [phone] Leonidas Carroll MD Unavailable [phone] Perry Romero MD Primary Care Provider [phone] Love Jones PT Unavailable Unavailab Arthur Law MD Unavailable Karl Cha MD Unavailable [phone] Encounter Details Date Type Department Care Team (Late st Contact Info) Description 01/25/[address] 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 Gender Identity Not on file Sexual Orientation Not on file documented as of this encounter Plan of Treatment Not on file documented as of this encounter Visit Diagnoses Not on filedocumented in this encounter Care Teams Concrete Mixer Relationship Specialty Start Date End Date Lina Mcadams MD [address] [place] [address] PCP - General 01/14/18 11/21/18 Deacon Eisenberg DO [address] [place] [address] PCP - General 11/22/18 02/22/20 Perry Romero MD [address] [place] [address] PCP - General Internal Medicine 02/23/20 Leonidas Carroll MD [address] [place] [address] Garbage Person Cardiology 05/23/19 Love Jones, PT Physical Therapist Physical Therapy 09/28/22 Arthur Bateman MD [address] [address] Referring Physician Anesthesiology 09/28/22 Karl Cha MD [address] [place] [address] Referring Physician Orthopedic Surgery 11/24/23 documented as of this encounter
--- OUTSIDE RECORDS SUMMARY | 2025-01-16 00:52 | XMS_ITS | Encounter Summary ---
Author Organization [facility] Address [address] [place] [address] Phone Care Team Providers Care Reactor Fueling Supervisor Name Role Phone Tim Sanchez MD Primary Care Provider [phone] Lina Mcadams MD Primary Care Provide r Deacon Eisenberg DO Primary Care Provider [phone] Leonidas Carroll MD Unavailable [phone] Perry Romero MD Primary Care Provider [phone] Love Jones PT Unavailable Unavailab Arthur Law MD Unavailable Karl Cha MD Unavailable [phone] Encounter Details Date Type Department Care Team (Latest Contact Info) Description 03/05/2017 Orders Only [facility] CONVERSION Scanning, Provider Social History Tobacco Use Types Packs/Day Years Used Date Smoking Tobacco: Never Assessed Sex and Gender Information Value Date Recorded Sex Assigned at Not on file 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 Gender Identity Not on file Sexual Orientation [...] on filedocumented in this encounter Care Teams Reactor Fueling Supervisor Relationship Specialty Start Date End Date Tim Sanchez MD [address] [place] [address] PCP - General 09/29/16 01/13/18 Lina Mcadams MD [address] [facility] [address] [place] [address] PCP - General 01/14/18 11/21/18 Deacon Eisenberg DO [address] [address] PCP - General 11/22/18 02/22/20 Perry Romero MD [address] [address] PCP - General Internal Medicine 02/23/20 Leonidas Carroll MD [address] [address] Industrial Training Specialist Cardiology 05/23/19 Love Jones, PT Physical Therapist Physical Therapy 09/28/22 Arthur Bateman MD [address] [address] Referring Physician Anesthesiology 09/28/22 Karl Cha MD [address] [facility] [address] [place] [address] Referring Physician Orthopedic Surgery 11/24/23 documented as of this encounter
--- OUTSIDE RECORDS SUMMARY | 2025-01-16 00:52 | XMS_ITS | Encounter Summary ---
Author Organization [facility] Address [address] [place] [address] Phone Care Team Providers Care Telephone Lineworker Name Role Phone Tim Sanchez MD Primary Care Provider [phone] Lina Mcadams MD Primary Care Provide r Deacon Eisenberg DO Primary Care Provider [phone] Leonidas Carroll MD Unavailable [phone] Perry Romero MD Primary Care Provider [phone] Love Jones PT Unavailable Unavailab Arthur Law MD Unavailable Karl Cha MD Unavailable [phone] Encounter Details Date Type Department Care Team (Late st Contact Info) Description 09/15/2016 Orders Only [facility] CLINCONV ProviderHeena MD [address] [place] [address] Social History Tobacco Use Types Packs/Day Years Used Date Smoking Tobacco: Never Assessed Sex and Gender Information Value Date Recorded Sex Assigned at Not on file 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 Gender Identity Not on file Sexual [...] on filedocumented in this encounter Care Teams Telephone Lineworker Relationship Specialty Start Date End Date Tim Sanchez MD [address] [facility] [address] [place] [address] PCP - General 09/29/16 01/13/18 Lina Mcadams MD [address] [facility] [place] [facility] 15 [place] [address] PCP - General 01/14/18 11/21/18 Deacon Eisenberg DO [address] [facility] [facility] [address] [place] [address] PCP - General 11/22/18 02/22/20 Perry Romero MD [address] [address] PCP - General Internal Medicine 02/23/20 Leonidas Carroll MD [address] [facility] [facility] 15 [place] [address] Autocad Draftsman Cardiology 05/23/19 Love Jones, PT Physical Therapist Physical Therapy 09/28/22 Arthur Bateman MD [address] [facility] [address] [place] [address] Referring Physician Anesthesiology 09/28/22 Karl Cha MD [address] [facility] [address] [place] [address] Referring Physician Orthopedic Surgery 11/24/23 documented as of this encounter
--- OUTSIDE RECORDS SUMMARY | 2025-01-16 00:52 | XMS_ITS | Clinical Summary ---
Author Organization [facility] Address [address] [place] [address] Phone Care Team Providers Care Coiled Coil Inspector Name Role Phone Provider, None Primary Care [...] age to complete this topic Insurance MEDICARE [facility] Care Teams Coiled Coil Inspector Relationship Specialty Start Date End Date Provider, None [place] PCP - General 02/20/20
--- OUTSIDE RECORDS SUMMARY | 2025-01-16 00:52 | XMS_ITS | Encounter Summary ---
Author Organization [facility] Healthcare Address [address] [place] [address] Care Team Providers Care Mantel Craftsman Name Role Phone Deacon Eisenberg DO Primary Care Provider [phone] Leonidas Carroll MD Unavailable [phone] Perry Romero MD Primary Care Provider Love Jones PT Unavailable Unavailab Arthur Law MD Unavailable Karl Cha MD Unavailable [phone] Encounter Details Date Type Department Care Team (Late st Contact Info) Description 06/03/2019 Documentation [facility] Case Management 1 [place] [address] Shahram Baxter, RN Social History Tobacco Use Types Packs/Day Years Used Date Smoking Tobacco: Former Cigarettes 1 28 1 975 - 2002 Smokeless Tobacco: Never Alcohol Use Standard Drinks/Week Comments Not Currently 0 (1 standard drink = 0.6 oz pur e alcohol) Sex and Gender Information Value Date Recorded Sex Assigned at Not on file 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 However, notified by Cata, patient arranged discharge transportaion and Left for discharge prior to Recruiting Consultant pravin greene Please call the Weekend Recruiting Consultant @ [phone] if additional assistance needed. SE STAFF MEMBER documented in this encounter Plan of Treatment Not on file documented as of this encounter Visit Diagnoses Not on filedocumented in this encounter Care Teams Mantel Craftsman Relationship Specialty Start Date End Date Deacon Eisenberg DO PCP - General 11/22/18 02/22/20 Perry Romero MD PCP - General Internal Medicine 02/23/20 Leonidas Carroll MD Organizational Effectiveness Director Cardiology 05/23/19 Love Jones, PT Physical Therapist Physical Therapy 09/28/22 Arthur Bateman MD [address] [address] Referring Physician Anesthesiology 09/28/22 Karl Cha MD [facility] [place] [address] Referring Physician Orthopedic Surgery 11/24/23 documented as of this encounter
--- OUTSIDE RECORDS SUMMARY | 2025-01-16 00:52 | XMS_ITS | Encounter Summary ---
Author Organization [facility] Address [address] [place] [address] Care Team Providers Care Walnut Dehydrator Operator Name Role Phone Leonidas Carroll MD Unavailable [phone] Perry Romero MD Primary Care Provider Love Jones PT Unavailable Unavailab Arthur Law MD Unavailable Karl Cha MD Unavailable [phone] Encounter Details Date Type Department Care Team (Late st Contact Info) Description 01/13/2025 Orders Only [facility] [address] [address] Perry Romero MD [facility] [address] [address] Social History Tobacco Use Types [...] How often do you attend [facility] or taoism services? 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 Gender Identity Not on file Sexual Orientation [...] Date/Time Associated Diagnosis Comments SCAN - LABS 01/13/2025 2:13 AM CDT documented in this encounter Results * SCAN - LABS (01/13/2025 2:13 AM CDT) us Perry Romero MD Final Result documented in this encounter Visit Diagnoses Not on filedocumented in this encounter Care Teams Walnut Dehydrator Operator Relationship Specialty Start Date End Date Perry Romero MD PCP - General Internal Medicine 02/23/20 Leonidas Carroll MD Pet Ambassador Cardiology 05/23/19 Love Jones, PT Physical Therapist Physical Therapy 09/28/22 Arthur Bateman MD [address] [address] Referring Physician Anesthesiology 09/28/22 Karl Cha MD [address] [place] [address] Referring Physician Orthopedic Surgery 11/24/23 documented as of this encounter
--- OUTSIDE RECORDS SUMMARY | 2025-01-16 00:52 | XMS_ITS | Encounter Summary ---
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 Gender Identity Not on file Sexual [...] on filedocumented in this encounter Care Teams Construction Pit Worker Relationship Specialty Start Date End Date Deacon Eisenberg PCP - General 11/22/18 02/22/20 Perry Romero MD PCP - General Internal Medicine 02/23/20 Leonidas Carroll MD Graphic Illustrator Cardiology 05/23/19 Love Jones, PT Physical Therapist Physical Therapy 09/28/22 Arthur Bateman MD [address] [address] Referring Physician Anesthesiology 09/28/22 Karl Cha MD [address] [place] [address] Referring Physician Orthopedic Surgery 11/24/23 documented as of this encounter
--- OUTSIDE RECORDS SUMMARY | 2025-01-16 00:52 | XMS_ITS | Encounter Summary ---
Author Organization [facility] Address [address] [place] [address] Phone Care Team Providers Care Hearth Feeder Name Role Phone Leonidas Carroll MD Unavailable [phone] Perry Romero MD Primary Care Provider [phone] Love Jones PT Unavailable Unavailab Arthur Law MD Unavailable Karl Cha MD Unavailable [phone] Encounter Details Date Type Department Care Team (Late st Contact Info) Description 12/18/2024 Results [facility]-Up [facility] Cardiology [address] [facility] Advanced Medicine 8th [place] [address] [place] [address] Nadnini Avalos RN Basic metabolic panel, eGFR Social [...] do you attend [facility] or holiness services? 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
--- OUTSIDE RECORDS SUMMARY | 2025-01-16 00:52 | XMS_ITS | Encounter Summary ---
Author Organization [facility] Address [address] [place] [address] Phone Care Team Providers Care Bead Preparer Name Role Phone Tim Sanchez MD Primary Care Provider [phone] Lina Mcadams MD Primary Care Provide r Deacon Eisenberg DO Primary Care Provider [phone] Leonidas Carroll MD Unavailable [phone] Perry Romero MD Primary Care Provider [phone] Love Jones PT Unavailable Unavailab Arthur Law MD Unavailable Karl Cha MD Unavailable [phone] Encounter Details Date Type Department Care Team (Late st Contact Info) Description 08/01/2017 Orders Only [facility] CAR CLINCONV ProviderHeena MD [address] [place] [address] Social History Tobacco Use Types Packs/Day Years Used Date Smoking Tobacco: Never Assessed Sex and Gender Information Value Date Recorded Sex Assigned at Not on file 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 [address] [place] [address] PCP - General 09/29/16 01/13/18 Lina Mcadams MD [address] [facility] 15 [place] [address] PCP - General 01/14/18 11/21/18 Deacon Eisenberg DO [address] [facility] 15 [place] [address] PCP - General 11/22/18 02/22/20 Perry Romero MD [address] [address] PCP - General Internal Medicine 02/23/20 Leonidas Carroll MD [address] [facility] 15 [place] [address] Strategic Partnership Representative Cardiology 05/23/19 Love Jones, PT Physical Therapist Physical Therapy 09/28/22 Arthur Bateman MD [address] [facility] [address] [place] [address] Referring Physician Anesthesiology 09/28/22 Karl Cha MD [address] [facility] [address] [place] [address] Referring Physician Orthopedic Surgery 11/24/23 documented as of this encounter
--- OUTSIDE RECORDS SUMMARY | 2025-01-16 00:53 | XMS_ITS | Clinical Summary ---
Author Organization [facility] Address [address] [place] [address] Care Team Providers Care Timber Buyer Name Role Phone Rigo Carroll MD Unavailable [phone] Perry Romero MD Primary Care Provider Love Jones PT Unavailable Unavailab Arthur Law MD Unavailable Karl Cha MD Unavailable [phone] Allergies Active Allergy Reactions Criticality Noted Date Comments Juzgdej-Geu-Smo Reductase Inhibitors Other (See comments) Low 05/03/2024 Pt has an intolerance to statin drugs. Dr. Carroll's office put this in pt said/ reaction unknown Medications metFORMIN (GLUCOPHAGE) 1,000 mg tablet TAKE 1 TABLET(1000 MG) BY MOUTH DAILY WITH BREAKFAST 90 tablet 3 Active Additional Information Patient taking differently: 1,000 mg oral Daily with breakfast, Indications: type 2 diabetes mellitus, Informant: Self, Reported on 01/11/2025 busPIRone (BUSPAR) 30 mg tabletIndications:G eneralized Anxiety [...] acute myocardial infarction, Informant: Self, Reported on 01/11/2025 aspirin 81 mg chewable tablet Take 1 tablet (81 mg total) by mouth daily 30 tablet 11 024 2024 Active Additional Information Patient taking differently:81 mg oralEvery morning, Informant: Self, Reported on 01/11/2025 meloxicam (MOBIC) 7.5 mg tabletIndications:P ain Take 1 tablet (7.5 mg total) by mouth daily 30 tablet Active Additional Information Patient taking differently:7.5 mg oralEvery morning, Indications: Osteoarthritis, Pain, Informant: Self, Reported on 01/11/2025 traMADoL (ULTRAM) 50 mg tabletIndications:E ncounter for [...] 1 tablet (5 mg total) by mouth seafood technology specialist before breakfast 90 tablet 3 025 Active clopidogreL (PLAVIX) 75 mg tablet TAKE 1 TABLET(75 MG) BY MOUTH DAILY 90 tablet 3 025 Active Additional Information Patient taking differently:75 mg oralEvery morning, Indications: Myocardial Reinfarction Prevention, atrial fibrillation, Heart Stents, Informant: Self, Reported on 01/11/2025 escitalopram (LEXAPRO) 20 mg tabletIndications:A nxiety with [...] artery disease, hypertension, Informant: Self, Reported on 01/11/2025 empagliflozin (JARDIANCE) 10 mg tablet Take 1 tablet (10 mg total) by mouth daily 30 tablet 11 025 Active Additional Information Patient taking differently:10 mg oralEvery morning, Indications: Heart Failure, type 2 diabetes mellitus, Informant: Self, Reported on 01/11/2025 amLODIPine (NORVASC) 2.5 mg tablet TAKE 1 TABLET(2.5 MG) BY MOUTH DAILY 90 tablet 3 025 Active Additional Information Patient taking differently:2.5 mg oralEvery morning, Indications: hypertension, Informant: Self, Reported on 01/11/2025 sacubitriL-valsarta n (ENTRESTO) 24-26 mg tabletIndications:c hronic heart failure Take 1 tablet by mouth 2 (two) times a day 60 tablet 11 025 Active fenofibrate nanocrystallized (TRICOR) 145 mg tablet Take 1 tablet (145 mg total) by mouth daily 90 tablet 3 025 2025 Active Additional Information Patient taking differently:145 mg oralEvery morning, Indications: hypercholesterolemia, hyperlipidemia, Informant: Self, Reported on 01/11/2025 traZODone (DESYREL) 50 mg tablet Take 1 tablet (50 mg total) by mouth nightly as needed 025 Active omega-3 fatty acids-fish oil 300-1,000 mg [...] mouth 2 (two) times a day Active donepeziL (ARICEPT) 5 mg tablet Take 1 tablet (5 mg total) by mouth nightly 30 tablet 2 025 Active ezetimibe (ZETIA) 10 mg tablet TAKE 1 TABLET(10 MG) BY MOUTH EVERY NIGHT 90 tablet 3 025 Active tamsulosin (FLOMAX) 0.4 mg extended release capsuleIndications: Nocturia Take 1 capsule (0.4 mg total) by mouth daily 30 capsule 11 021 2021 Discontinued ezetimibe (ZETIA) 10 mg tablet TAKE 1 TABLET(10 MG) BY MOUTH EVERY NIGHT 90 tablet 3 024 2024 Discontinued moxifloxacin (VIGAMOX) 0.5 % ophthalmic [...] 06/17/2023 Assessment & Plan (06/17/2023 10:00 AM AVIONIC TECHNICIAN): Continue flexeril 10mg Q8 PRN Trial gabapentin 100mg Q8 TID Topical lidocaine patches 4%, on for 12 hours/off for 12 hours Will send [place] 5/325 PRN #28, discussed that this will [...] time Assessment & Plan (07/21/2021 9:52 AM AVIONIC TECHNICIAN): Baseline creatine 1.3-1.5 Creatine Within patient;s baseline at 1.3 CTM Received IV fluids 500 ml on admission for creatine 1.59 Statin intolerance 07/18/2021 Assessment & Plan (07/18/2021 3:39 PM AVIONIC TECHNICIAN): History of statin intolerance -Continue ezetimibe and fenofibrate BPH (benign prostatic hyperplasia) 07/18/2021 Assessment & Plan (07/18/2021 3:59 PM AVIONIC TECHNICIAN): BPH s/p TURP -Continue home finasteride and tamsulosin HLD (hyperlipidemia) 07/18/2021 Assessment & Plan (12/21/2024 3:49 PM CDT): Lipid doing well Assessment & Plan (10/11/2024 11:06 AM CDT): Recommend statin therapy. Assessment & Plan (09/15/2024 10:52 AM CDT): Stable continue Zetia Assessment & Plan (08/31/2024 1:57 PM CDT): Impression: Chronic stable. Plan: Continue Zetia, fenofibrate Assessment & Plan (07/21/2021 8:10 AM AVIONIC TECHNICIAN): LDL ok while on non-statins due to intolerance. Continue present Rx for now Assessment & Plan (07/20/2021 8:10 AM AVIONIC TECHNICIAN): LDL ok while on non-statins due to intolerance. Continue present Rx for now Assessment & Plan (07/19/2021 7:57 AM AVIONIC TECHNICIAN): LDL ok while on non-statins due to intolerance. Continue present Rx for now Assessment & Plan (07/18/2021 3:52 PM AVIONIC TECHNICIAN): Lipid panel WNL -Continue ezetimibe and fenofibrate [...] 07/18/19 Assessment & Plan (07/18/2021 4:00 PM AVIONIC TECHNICIAN): PVOD s/p bilateral iliac stents Unstable angina 07/18/2021 Overview (07/18/2021): Added automatically from request for surgery [id number] Assessment & Plan (07/21/2021 8:10 AM AVIONIC TECHNICIAN): CP concerning for [place]. troponins normal, ruled out for NC. I have recommended coronary angiography and this is scheduled for today. Pt has PAD Continue IV heparin, follow labs and adjust. Continue aspirin, plavix, beta carrie, Patient asymptomatic. Cardiac catheterization scheduled for tomorrow. NPO after midnight. Assessment & Plan (07/20/2021 8:10 AM AVIONIC TECHNICIAN): CP concerning for USA. troponins normal, ruled out for NC. I have recommended coronary angiography and this is scheduled for Wednesday. Pt has PAD and radial approach may be preferred. Continue IV heparin, follow labs and adjust. Continue aspirin, plavix, beta carrie, Patient asymptomatic. Cardiac catheterization scheduled for tomorrow. NPO after midnight. Assessment & Plan (07/19/2021 7:56 AM AVIONIC TECHNICIAN): CP concerning for [place]. troponins normal, ruled out for NC. Brief left sided chest pain since admission. [...] (03/06/2021): Added automatically from request for surgery [id number] Presbyopia 02/03/2021 Assessment & Plan (08/12/2023 5:06 PM AVIONIC TECHNICIAN): -Noting increased difficulty with near vision while reading -Recommended trialing higher power reading glasses Assessment & Plan (02/03/2021 2:44 PM CDT): Correctable to 20/25 right eye (OD) and left eye (OS). Update specs as desired. Rosacea 09/18/2020 Metatarsalgia of right foot 07/04/2020 Overview (07/04/2020): Added automatically from request for surgery [id number] Sesamoiditis 07/04/2020 Overview (07/04/2020): Added automatically from request for surgery [id number] Painful orthopaedic hardware 07/04/2020 Overview (07/04/2020): Added automatically from request for surgery [id number] Achilles tendon contracture, right 07/04/2020 Overview (07/04/2020): Added automatically from request for surgery [id number] Pseudarthrosis after fusion or arthrodesis 02/28 Overview (02/28/2019): Added automatically from request for surgery [id number] Diabetes mellitus type 2 without retinopathy 05/2019 Assessment & Plan (12/10/2024 6:36 PM CDT): - Continue good BP/BG control Assessment & Plan (02/09/2023 3:33 PM CDT): Continue strict BS control, annual dilated eye exams. Assessment & Plan (06/17/2022 4:09 PM AVIONIC TECHNICIAN): Continue strict BS control, annual dilated eye [...] months Assessment & Plan (08/12/2023 5:05 PM AVIONIC TECHNICIAN): -Follow up exam for AMD; last visit [...] 6months Assessment & Plan (06/17/2022 9:41 AM AVIONIC TECHNICIAN): -No signs of exudation. -given the large [...] months Assessment & Plan (08/13/2021 3:12 PM AVIONIC TECHNICIAN): No signs of exudation. Per AREDS study, [...] Yes on DAPT Allergies: Allergies Allergen Reactions Sdedbwf-Qck-Vha Reductase Inhibitors Other (See comments) Pt has [...] toric lenses. The patient elected to target [place] with monofocal lens - Best phone number at which to reach patient: [phone] Planned Operation: CE/IOL of right eye Time: [...] follow. Assessment & Plan (06/17/2022 4:09 PM AVIONIC TECHNICIAN): NVS, follow. Assessment & Plan (02/23/2019 10:32 [...] (06/08/2018): Added automatically from request for surgery [id number] Palpitations 04/15/2018 CAD (coronary artery disease) 03/08/2018 Assessment & Plan (12/21/2024 3:49 PM CDT): No chest pain Assessment & Plan (09/04/2024 11:21 AM CDT): stable Assessment & Plan (07/18/2021 3:42 PM AVIONIC TECHNICIAN): CAD s/p CABG in 2010 (KAUR-LAD which is known to be an atretic graft; vein graft-marginal; and vein graft-2nd marginal branch; RCA occluded, with collateral revascularization) -Last [facility] in 11/2018 showed patent KAUR graft [...] II, non insulin dependent ([facility]) 01/15/2018 Assessment & Plan (12/21/2024 3:49 PM CDT): A1c excellent 5.9 Assessment & Plan (12/04/2024 8:09 AM CDT): >>ASSESSMENT AND PLAN FOR DM2 (DIABETES MELLITUS, TYPE 2) ([facility]) WRITTEN ON 07/18/2021 3:41 PM BY LAY WELDON NP -Hemoglobin A1c 6.1 -Hold home metformin while inpatient -SSI while admitted -Carb consistent diet -Accuchecks Assessment & Plan (12/04/2024 8:09 AM CDT): >>ASSESSMENT AND PLAN FOR DM2 (DIABETES MELLITUS, TYPE 2) ([facility]) WRITTEN ON 07/19/2021 7:58 AM BY RIGO CARROLL MD Follow glucose and rx with insulin Metformin held for now pending cath. Assessment & Plan (09/04/2024 11:21 AM CDT): Stable and doing well Assessment & Plan (07/21/2021 9:50 AM AVIONIC TECHNICIAN): Hemoglobin a1c 6.1 - diet controlled for now Metformin on hold for [facility] Continue to monitor. Assessment & Plan (07/20/2021 8:11 AM AVIONIC TECHNICIAN): Blood sugar stable. Follow-up blood sugar. Treat with insulin as appropriate Metformin being held. Assessment & Plan (02/28/2020 3:23 PM CDT): a1c at target, recommend annual eye exam. Feet are without lesions. Assessment & Plan (11/22/2018 4:43 PM CDT): On metformin 1000mg BID at home -LDSSI Assessment & Plan (11/14/2018 1:46 PM CDT): No [facility] Last A1C was 01/2018 but at goal [...] metoprolol Assessment & Plan (07/18/2021 3:53 PM AVIONIC TECHNICIAN): BP currently well controlled -Continue amlodipine, lisinopril [...] 09/15/2016 Assessment & Plan (07/18/2021 4:06 PM AVIONIC TECHNICIAN): -Continue metoprolol XL -Telemetry Assessment & Plan [...] stable Assessment & Plan (07/21/2021 8:10 AM AVIONIC TECHNICIAN): Pacer function stable Continue present Rx. Continue beta-carrie. Assessment & Plan (07/20/2021 8:10 AM AVIONIC TECHNICIAN): Pacer function stable Continue present Rx. Continue beta-carrie. 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 Maty Weber Assessment & Plan (02/28/2020 3:23 PM CDT): No palpitations, syncope Depressive disorder 03/15/2015 Panic disorder without agoraphobia 03/15/2015 Resolved Problems Problem Noted Date Diagnosed Date Resolved Date Pain in right foot 04/24/2022 4 LINUS (acute kidney injury) 07/18/2021 Assessment & Plan (07/21/2021 8:12 AM AVIONIC TECHNICIAN): Pt with CKDstage 3, CrCl 50 ml/min. Creatinine improved. Cath today Assessment & Plan (07/20/2021 8:11 AM AVIONIC TECHNICIAN): Pt with CKDstage 3, CrCl 50 ml/min. Repeat BMP today. IV hydration Mikal night before cath recommended. Assessment & Plan (07/19/2021 7:59 AM AVIONIC TECHNICIAN): Pt with CKDstage 3, CrCl 50 ml/min. Stable. IV hydration Mikal night before cath recommended. Assessment & Plan (07/18/2021 3:44 PM AVIONIC TECHNICIAN): LINUS (Cr 1.59 on admission) on CKD (baseline Cr 1.0-1.2) -S/p 500 ml LR bolus in ED -Follow BMPs Statin intolerance 02/10/2021 4 Syncope and collapse 12/30/2020 024 Encounter for screening colonoscopy 10/14/2020 06/17/2023 Overview (10/14/2020): Added automatically from request for surgery [id number] Joint pain 02/28/2020 06/17/2023 Assessment & Plan (04/29/2020 10:45 AM AVIONIC TECHNICIAN): Medrol dose pack Tramadol Q6 PRN (use, safety, s/e reviewed) Referral to Pain Management Assessment & Plan (02/28/2020 3:25 PM CDT): xrays noted, check rheum panel (? H/o pos JENNIFER) Confusion 01/04/2019 06/17/2023 Chest pain 01/15/2018 06/17/2023 Assessment & Plan (07/21/2021 9:47 AM AVIONIC TECHNICIAN): CAD s/p CABG (2010), admitted with chest [...] Encounters Date Type Department Care Team Description 01/15/2025 Telephone [facility] Ophthalmology [address] [place] [address] Blascaden Berg call transfer 01/13/2025 Orders Only [facility] [address] [place] [address] [address] [place] [phone] Perry Romero MD 01/12/2025 10:50 AM CDT - 01/12/2025 11:59 PM CDT Hospital Encounter [facility] [address] [place] [address] Acute nonintractable headache, unspecified headache type Discharge Disposition: Discharge to home or self care 01/12/2025 Results Follow-Up [facility] [address] [place] [address] [address] [place] [phone] Raisa Blanco NP Erythrocyte sedimentation rate, CRP (acute phase), CBC with auto differential, Additional followed-up results: 6 01/11/2025 1:57 PM CDT - 01/11/2025 11:59 PM CDT Hospital Encounter [facility] [address] [place] [address] Acute nonintractable headache, unspecified headache type; Prostate cancer screening; Fatigue, unspecified type Discharge Disposition: Discharge to home or self care 01/11/2025 1:15 PM CDT Office Visit [facility] [address] [place] [address] [address] [place] [phone] Raisa Blanco NP Acute nonintractable headache, unspecified headache type (Primary Dx); Prostate cancer screening; Memory changes; Fatigue, unspecified type 01/10/2025 Telephone [facility] [address] [facility] [address] [place] [address] Arthur Bateman MD [facility] Preprocedure; Anticoagulation 01/06/2025 Orders Only [facility] Cardiology [address] [facility] Medical Office Building [address] [place] [phone] Maty Weber MD 01/03/2025 Telephone [facility] [address] [facility] [address] [place] [phone] Perry Romero MD request for referral 01/02/2025 10:30 AM CDT Office Visit [facility] Ophthalmology [address] [place] [address] 1st [place] [phone] Pseudophakia of right eye (Primary Dx) 12/22/2024 Telephone [facility] Ophthalmology [address] [place] [phone] Geoffrey Ramon MD PhD Post op questions 12/21/2024 3:15 PM CDT Office Visit [facility] [address] [facility] [address] [place] [phone] Perry Romero MD Diabetes mellitus type II, non insulin dependent (HCC) (Primary Dx); Primary hypertension; Mixed hyperlipidemia; Stage 3a chronic kidney disease (HCC); Coronary artery disease involving [place] heart without angina pectoris, unspecified vessel or lesion type 12/18/2024 Results Follow-Up [facility] Cardiology [address] [facility] 8th [place] [address] [place] [phone] Nandini Avalos RN Basic metabolic panel, eGFR 12/14/2024 9:15 AM CDT Lab [facility] Outpatient Lab at [address] [phone] 12/14/2024 9:13 AM CDT - 12/14/2024 11:59 PM CDT Hospital Encounter [address] [address] High risk medications (not anticoagulants) long-term use Discharge Disposition: Discharge to home or self care 12/13/2024 10:00 AM CDT Office Visit [facility] Ophthalmology [address] [place] [phone] Pseudophakia of right eye (Primary Dx) 12/09/2024 7:15 AM CDT Office Visit [facility] Ophthalmology [address] [place] [phone] Pseudophakia of right eye (Primary Dx) 12/08/2024 2:10 PM CDT - 12/08/2024 3:10 PM CDT Surgery [facility] Operating Room [facility]) [address] [place] [address] Jaime Fuchs MD EXTRACTION CATARACT WITH LENS IMPLANT. [71112 (CPT )] 12/08/2024 1:21 PM CDT Anesthesia Event [facility] Operating [facility] ([facility]) [address] [place] [address] Tonya Castillo MD Heuvelman, Katherine Marie, NP 12/08/2024 12:34 PM CDT - 12/08/2024 3:16 PM CDT Hospital Encounter [facility] Operating [facility] ([facility]) [address] [place] [address] Jaime Fuchs MD Nuclear sclerotic cataract of both eyes [H25.13] (Primary Dx) Discharge Disposition: Discharge to home or self care 12/05/2024 Telephone [facility] Ophthalmology [address] [place] [phone] Geoffrey Ramon MD PhD Scheduling Appointments (CEIOL OD) 12/04/2024 10:00 AM CDT Office Visit [facility] Ophthalmology [address] [place] [phone] Age-related nuclear cataract of both eyes (Primary Dx) 12/01/2024 Orders Only [facility] [address] [facility] [address] [phone] Perry Romero MD 11/30/2024 Telephone [facility] [address] [facility] [address] [place] [address] Arthur Bateman MD Anticoagulation 11/29/2024 1:46 PM CDT - 11/29/2024 11:59 PM CDT Hospital Encounter [facility] [address] [facility] [address] [place] [address] Arthur Bateman MD Right foot pain (Primary Dx); Left knee pain, unspecified chronicity; Spondylosis of lumbar region without myelopathy or radiculopathy Discharge Disposition: Discharge to home or self care 11/29/2024 Orders Only [facility] [address] [place] [address] [address] [place] [address] Perry Romero MD 11/25/2024 Orders Only [facility] [address] [place] [place] [address] [address] [place] [address] Perry Romero MD 11/21/2024 Documentation [facility] Clinical Trial [address] [place] [phone] Bebe Tinajero BS 11/21/2024 Telephone [facility] Cardiology [address] [place] [address] 8th [place] [address] [place] [address] Rigo Carroll MD 11/20/2024 3:00 PM CDT Office Visit [facility] Cardiology [address] [place] [address] 8th [place] [address] [place] [address] Rigo Carroll MD Coronary artery disease involving [place] coronary artery of [place] heart without angina pectoris (Primary Dx); Nonrheumatic mitral (valve) insufficiency; Presence of cardiac pacemaker; Ischemic cardiomyopathy 11/18/2024 Results Follow-Up [facility] Cardiology [address] [place] [address] 8th [place] [address] [place] [address] Rigo Carroll MD Basic metabolic panel, eGFR 11/17/2024 9:00 AM CDT Lab [facility] Outpatient Lab at [address] [phone] Polypharmacy (Primary Dx) 11/17/2024 8:52 AM CDT - 11/17/2024 11:59 PM CDT Hospital Encounter [address] [address] High risk medications (not anticoagulants) long-term use Discharge Disposition: Discharge to home or self care 11/17/2024 Orders Only [facility] Orthopaedic Surgery [address] [facility] 6th [place] [address] [place] [address] Sudhir Martinez MD Greater trochanteric pain syndrome of right lower extremity (Primary Dx); Chronic right hip pain 11/12/2024 Orders Only [facility] [address] [place] [address] [address] [place] [phone] Perry Romero MD 11/08/2024 Orders Only [facility] Cardiology [address] [facility] 8th [place] [address] [place] [address] Rigo Carroll MD High risk medications (not anticoagulants) long-term use (Primary Dx) 11/08/2024 Orders Only [facility] [address] [place] [address] [address] [place] [address] Perry Romero MD 11/07/2024 Orders Only [facility] [address] [place] [address] [address] [place] [address] Perry Romero MD 11/03/2024 Orders Only [facility] [address] [place] [address] [address] [place] [address] Perry Romero MD 11/02/2024 Orders Only [facility] CARDIOLOG[facility] Scanning, Provider Nonrheumatic mitral (valve) insufficiency (Primary Dx) 11/02/2024 Orders Only [facility] [address] [facility] [address] [place] [address] Perry Romero MD 11/01/2024 Telephone [facility] Cardiology [facility] 8th [place] [address] [place] [phone] Rigo Carroll MD 10/31/2024 Orders Only [facility] [address] [place] [address] Perry Romero MD 10/25/2024 1:00 PM CDT Office Visit [facility] Orthopaedic Surgery [facility] 6th [place] [address] [place] [phone] Sudhir Martinez MD Greater trochanteric pain syndrome of right lower extremity (Primary Dx); Chronic right hip pain; Chronic knee pain after total replacement of left knee joint 10/23/2024 Telephone [facility] Cardiology [address] [place] [address] 8th [place] [address] [place] [phone] Rigo Carroll MD BP updates 10/18/2024 10:15 AM CDT Lab [facility] Outpatient Lab at [address] [phone] Diabetes mellitus type 2 without retinopathy (HCC) (Primary Dx); High risk medications (not anticoagulants) long-term use 10/18/2024 10:10 AM CDT - 10/18/2024 11:59 PM CDT Hospital Encounter [facility] [id number] [place] [address] High risk medications (not anticoagulants) long-term use Discharge Disposition: Discharge to home or self care 10/18/2024 Results Follow-Up [facility] Cardiology [address] [place] [address] 8th [place] [address] [place] [phone] Rigo Carroll MD Basic metabolic panel, eGFR 10/16/2024 10:45 AM CDT - 10/16/2024 12:25 PM CDT Surgery [facility] [address] [place] [address] Clifford Sandy MD CORONARY ARTERY AND GRAFT ANGIOGRAPHY [id number] 10/16/2024 8:28 AM CDT - 10/16/2024 5:00 PM CDT Hospital Encounter [facility] [address] [place] [address] Clifford Sandy MD Coronary artery disease involving confederated goshute heart without angina pectoris, unspecified vessel or lesion type Discharge Disposition: Discharge to home or self care 10/16/2024 Results Follow-Up [facility] Cardiology [address] [facility] Advanced Medicine 8th [place] [address] [place] [address] Rigo Carroll MD Cardiac Catheterization from Last 3 Months Immunizations Immunization Administration [...] 06/13/2003 triple bypass CARDIAC CATHETERIZATION 11/22/2018 positive NC FOOT SURGERY 06/28/2018 Right right 1st MTP [...] N/A Procedure: CORONARY ARTERY AND GRAFT ANGIOGRAPHY [id number]; Surgeon: Clifford Sandy MD; Location: [facility] CARDIAC WET FINISHER; Service: Cardiovascular; Laterality: N/A; eval ffor ischemia, hx icm CABG 2002 [facility], most recent cath at [facility] [address] Sandy Pt has pacemaker-Dr. Weber DM-on Metformin, will instruct pt to hold night prior and day of Labs done 10/03/2024, in chart Pt will be Medical devices from this surgery are in the Medical Devices section. CARDIAC CATHETERIZATION 10/16/2024 N/A Procedure: Coronary Flow Velocity (CFR) / Instantaneous Flow Velocity (IFR), 1st Vessel; Surgeon: Clifford Sandy MD; Location: [facility] CARDIAC WET FINISHER; Service: Cardiovascular; Laterality: N/A; Medical devices from this surgery are in the Medical Devices section. CARDIAC CATHETERIZATION 10/16/2024 N/A Procedure: IVUS/OCT CORS OR GRAFTS, FIRST VESSEL (+) [id number]; Surgeon: Clifford Sandy MD; Location: [facility] CARDIAC WET FINISHER; Service: Cardiovascular; Laterality: N/A; Medical devices from this surgery are in the Medical Devices section. CATARACT EXTRACTION EXTRACAPSULAR W/ INTRAOCULAR LENS IMPLANTATION 12/08/2024 Eye/Right Procedure: EXTRACTION CATARACT WITH LENS IMPLANT.; Surgeon: Jaime Fuchs MD; Location: [facility] CAM OR POD 4; Service: Ophthalmology; Laterality: Right; Medical devices from this surgery are in the Medical Devices section. Medical History Medical History Date Comments Encounter for immunization Need for prophylactic vaccination and inoculation against influenza - Vaccines Prophylactic Need Against Influenza (Added by TW Conv) Diabetes mellitus (HCC) Heart attack (HCC) Heart failure Atrial fibrillation (HCC) Poor circulation Depression Macular degeneration Anxiety Hypertension Fracture, fibula Fibula fracture Low back pain Foot pain Type 2 diabetes mellitus Panic attack Chronic pain disorder Sleep apnea [...] Years Used Date Smoking Tobacco: Former Cigarettes 975 - 2002 Passive Smoke Exposure: Past Smokeless Tobacco: Never Tobacco Cessation:Counseling Given: Yes Passive Exposure Comments:parents smoked Alcohol Use Standard [...] often do you attend chur ch or jainism services? 1 to 4 times per year 05/02/2021 Do you belong to any clubs o r organizations such as hindu groups, unions, fraternal or athletic groups, or [...] on file Legal Sex Male 11:34 PM AVIONIC TECHNICIAN Gender Identity Not on file Sexual Orientation Not on file Obstetrics History Last Filed Vital Signs Vital Sign Reading Time Taken Comments Blood Pressure 110/71 01/11/2025 1:10 PM CDT Pulse 82 01/11/2025 1:10 PM CDT Temperature 36.2 C (97.2 F) 12/08/2024 2:20 PM CDT Respiratory Rate 22 12/08/2024 2:20 PM CDT Oxygen Saturation 95% 01/11/2025 1:10 PM CDT Inhaled Oxygen Concentration - - Weight 94.8 kg (209 lb) 01/11/2025 1:10 PM CDT Height 180.3 cm (5' 11) 01/11/2025 1:10 PM CDT Body Mass Index 29.15 01/11/2025 1:10 PM CDT Plan of Treatment Health Maintenance [...] Influenza Vaccine (#1) 2025 , 06/03/2019, 08/05/2017 Hemoglobin A1C 06/23/2025 12/21/2024, 03/2 09/2024, 03/27/2024, Additional history exists Fall Risk Assessment 12/08/2025 12/08/2024 Dilated Eye Exam 01/02/2026 01/02/2025, , 10/05/2024, Additional history exists eGFR 01/11/2026 01/11/2025, 07/0 08/2024, 11/17/2024, Additional history exists Prostate Cancer Screening-PSA 01/11/2027, 06/17/2023, 02/05/2022, Additional history exists Colon Cancer Screening-Colonoscopy 01/01/2031 [...] as needed Medical Devices Implanted Type Area Waiter/Waitress Take Out Device Identifier Shelf Expiration Date Model / Serial / Lot Terumo Medical Lewis Angio-Seal Vip 6fr Closere Device [id number] - [id number] - [id number] Implanted:Qty: 1 on 11/25/2022 by Eliecer Mxion MD at [facility] Collagen [employer] Lewis 06/13/2023 [id number] / [id number] / [id number] Terumo [employer] Lewis Angio-Seal Vip 6fr Closere Device 718413 - [id number] - [id number] Implanted:Qty: 1 on 10/16/2024 by Clifford Sandy MD at [facility] Collagen Left: Common Femoral Artery [employer] Lewis 05/01/2025 [id number] / [id number] / [id number] Lead (Ra)-05/08/2015 Implanted:05/08/2015 by Maty Weber MD (Quantity not on file) Lead Heart Biotronik 350 974 SETROX S 53 / [id number] / Lead (Rv)-05/08/2015 Implanted:05/08/2015 by Maty Weber MD (Quantity not on file) Lead Heart Biotronik 350 975 SETROX S 60 / [id number] / [place] [employer] Lens Tecnis Eyhance Iol [id number] - [id number] - [id number] Implanted:Qty: 1 on 12/08/2024 by Jaime Fuchs MD at [facility] Advanced Medicine Lens Right: Eye [place] [employer] [id number] 10/04/2027 [id number] / [id number] / 0 Pacemaker-05/08/2015 Implanted:05/08/2015 by Maty Weber MD (Quantity not on file) Pacemaker Left: Chest Biotronik 196688 ELUNA 8 JOVANNI AGUILA / [id number] / Synthes 201.814 2mm 3.5mm 14mm Self Tap Cruciform Cortex Screw Bone Stainless - S0 - [id number] Implanted:Qty: 1 on 08/06/2020 by Zoey Sexton MD at [facility] Advanced Medicine [facility] Screw Synthes I 201.814 / 0 / Medtronic Card Vasc Surgery 4.0 X 26mm [place] Rx Coronary Stent Flatwe11833sc - [id number] - [id number] Implanted:Qty: 1 on 11/25/2022 by Clifford Sandy MD at [facility] Stent Medtronic Card Vasc Surgery 06/26/2025 [id number] / [id number] / [id number] Orthohelix Kcg-[id number] Maxtorque 4mm 32.5mm Cannulated Self Drill Foot Ankle Long Thread - [id number] Implanted:Qty: 1 on 06/28/2018 at [facility] Right: Foot Orthohelix MSD-010- [id number] / / Orthohelix Electric Meter Repairer-002-Pmx Ortholink 3 Hole [place] Foot Ankle Standard Plate Bone Nonsterile Latex Free - [id number] Implanted:Qty: 1 on 06/28/2018 at [facility] Right: Foot Orthohelix PUTTY PATCHER-002- PMX / / Orthohelix [id number] Maxlock Extreme 4mm 16mm Nonlock Foot Ankle Screw Bone Nonsterile - [id number] Implanted:Qty: 1 on 06/28/2018 at [facility] Right: Foot Orthohelix PUTTY PATCHER-011- 4016 / / Orthohelix [id number] Maxlock Extreme 4mm 18mm Nonlock Foot Ankle Screw Bone Nonsterile Latex Free - [id number] Implanted:Qty: 1 on 06/28/2018 at [facility] Right: Foot Orthohelix PUTTY PATCHER-011- 40-18 / / Orthohelix [id number] Maxlock Extreme 4mm 14mm Nonlock Foot Ankle Screw Bone Nonsterile Latex Free - [id number] Implanted:Qty: 1 on 06/28/2018 at [facility] Right: Foot Orthohelix PUTTY PATCHER-011- 4014 / / Daig Lewis[employer] [id number] Angio-Seal Evolution 6fr .035in Guidewire Bypass Tube Suture - [id number] Implanted:Qty: 1 on 11/22/2018 by Sarah Vasquez MD at [facility] Daig Lewis[employer] 08/12/2019 [id number] / / [id number] Medtronic Sofamor [place] [id number] Infuse 14mm 23mm Absorbable Sponge Sterile Water Syringe Needle - [id number] Implanted:Qty: 1 on 06/02/2019 by Zoey Sexton MD at [facility] Right: Foot Medtronic Inc 01/11/2021 [id number] / / [id number] [place] [employer] [id number] Plate Bone Medline Unite 0 D Medium Metatarsophalangeal Right Fusion Nonsterile - [id number] Implanted:Qty: 1 on 06/02/2019 by Zoey Sexton MD at [facility] Right: Foot Medline Industries Inc [id number] / / Medline Industries Inc [id number] Pin Fixation Medline Unite L10mm Od1.1mm - [id number] Implanted:Qty: 1 on 06/02/2019 by Zoey Sexton MD at [facility] Right: Foot [employer]line [employer] Inc [id number] / / Medline Industries Inc [id number] Screw Bone Medline Unite L34mm Od4.5mm Head Nonsterile - [id number] Implanted:Qty: 1 on 06/02/2019 by Zoey Sexton MD at [facility] Right: Foot [employer]line Industries Inc [id number] / / Medline Industries Inc [id number] Screw Bone Medline Unite L16mm Od3.5mm Foot Ankle Nonlock - [id number] Implanted:Qty: 1 on 06/02/2019 by Zoey Sexton MD at [facility] Right: Foot [employer] Industries Inc [id number] / / Medline Industries Inc [id number] Screw Bone Medline Unite L18mm Od3.5mm Foot Ankle Nonlock - [id number] Implanted:Qty: 1 on 06/02/2019 by Zoey Sexton MD at [facility] Right: Foot [employer] Inc [id number] / / Medline [employer] Inc [id number] Screw Bone Medline Unite L20mm Od3.5mm Foot Ankle Nonlock - [id number] Implanted:Qty: 2 on 06/02/2019 by Zoey Sexton MD at [facility] Right: Foot [employer] Inc [id number] / / [employer] [employer] Triathlon Cruciate Retain Bead Knee Left 5 Component Femoral Pa 5517-F-501 - [id number] Implanted:Qty: 1 on 04/24/2024 by Zbigniew Noel MD at [facility] [employer] [id number] 02/27/2029 5517-F-5 / / [id number] [employer] Triathlon Knee 6 Baseplate Tibial Tritanium 5536-B-600 - [id number] Implanted:Qty: 1 on 04/24/2024 by Zbigniew Noel MD at [facility] [employer] [id number] 11/08/2028 5536-B-6 00 / / [id number] [employer] Insert Tibial Triathlon 6 H11mm Knee Bearing Condylar Stabilize Sterile 2538-Z-929-E - [id number] Implanted:Qty: 1 on 04/24/2024 by Zbigniew Noel MD at [facility] [employer] [id number] 12/19/2028 5531-G-6 11-E / / [id number] Explanted Type Area Waiter/Waitress Take Out Device Identifier Shelf Expiration Date Model / Serial / Lot Microaire Surgical Instruments [id number] Anne .45in 9in 1 [place] [employer] Wire Fixation - S0 - [id number] Explanted:Qty: 1 on 08/06/2020 by Zoey Sexton MD at [facility] Wire [employer] Instruments [id number] S / 0 / Description:Provisional fixa tion Microaire [employer] Instruments 4747-5518 Anne .062in 9in 1 [place] Smooth Wire Fixation - [id number] Explanted:Qty: 1 on 06/28/2018 at [facility] Right: Foot [employer] Instruments [id number] / / Description:Provisional fixa tion [employer] Instruments 9834-7585 Anne .062in 9in 1 [place] Smooth Wire Fixation - [id number] Explanted:Qty: 1 on 06/28/2018 at [facility] Right: Foot [employer] Instruments [id number] / / Description:Provisional fixa tion [employer] Instruments 0346-6816 Anne .062in 9in 1 [place] Smooth Wire Fixation - [id number] Explanted:Qty: 1 on 06/28/2018 at [facility] Right: Foot [employer] Instruments [id number] / / Description:Provisional fixa tion Screw Explanted:Qty: 5 on 08/06/2020 by Zoey Sexton MD at [facility] Other / 0 / Plate Explanted:Qty: 1 on 08/06/2020 by Drew Espinosa MD at [facility] Other / 0 / Procedures Procedure Name Priority Date/Time Associated Diagnosis Comments SCAN - LABS 01/13/2025 2:[address] HEAD WO CONTRAST Schedule Routine, Read Routine (OP Routine) 01/12/2025 11:11 AM CDT Acute nonintractable headache, unspecified headache type EGFR Routine 01/11/2025 1:57 PM CDT Acute nonintractable headache, unspecified headache type DIFFERENTIAL AUTO Routine 01/11/2025 1:5 7 PM CDT Acute nonintractable headache, unspecified headache type VITAMIN B12 Routine 01/11/2025 1:57 PM CDT Fatigue, unspecified type PSA SCREEN Routine 01/11/2025 1:57 PM CDT Prostate cancer screening COMPREHENSIVE METABOLIC PANEL Routine 01/11/2025 1:57 PM CDT Acute nonintractable headache, unspecified headache type CBC WITH AUTO DIFFERENTIAL Routine 01/11/2025 1:57 PM CDT Acute nonintractable headache, unspecified headache type CRP (ACUTE PHASE) Routine 01/11/2025 1:5 7 PM CDT Acute nonintractable headache, unspecified headache type ERYTHROCYTE SEDIMENTATION RATE Routine 01/11/2025 1:57 PM CDT Acute nonintractable headache, unspecified headache type SCAN - LABS 01/11/2025 11:19 AM CDT DEVICE CHECK - REMOTE Routine 01/06/2025 2:57 AM CDT POCT HEMOGLOBIN A1C Routine 12/21/2024 3 :14 PM CDT Diabetes mellitus type II, non insulin dependent (HCC) EGFR Routine 12/14/2024 9:13 AM CDT High risk medications (not anticoagulants) long-term use BASIC METABOLIC PANEL Routine 12/14/2024 9:13 AM CDT High risk medications (not anticoagulants) long-term use POCT GLUCOSE DEVICE Routine 12/08/2024 3 :12 PM CDT [place] XCAPSL CTRC RMVL INSJ IO LENS PROSTH [...] 2:35 PM CDT Coronary artery disease involving confederated goshute heart without angina pectoris, unspecified vessel or lesion type CORONARY FLOW VELOCITY (CFR) / INSTATANEOUS FLOW VELOCITY (IFR), 1ST VESSEL Routine 10/16/2024 2:35 PM CDT Coronary artery disease involving confederated goshute heart without angina pectoris, unspecified vessel or lesion type RIGHT CORONARY ANGIOGRAPHY Routine 10/16/2024 2:35 PM CDT Coronary artery disease involving confederated goshute heart without angina pectoris, unspecified vessel or [...] Routine 09/21/2023 9:27 AM CDT Mixed hyperlipidemia COLONOSCOPY 01/01/2021 12:16 PM CDT from Last 3 Months or Most Recently Relevant to Health Maintenance Results * SCAN - LABS (01/13/2025 2:13 AM CDT) us Perry Romero MD Final Result * CT Head WO Contrast (01/12/2025 11:11 AM CDT) Anatomical Region Laterality Modality Head and Neck N/A Computed Tomogra phy 01/12/2025 2:37 PM CDT Impressions 01/12/2025 3:03 PM CDT No acute intracranial process. Dictated by: Stefany Lowery M.D. The radiology attending physician has personally reviewed this study, and had reviewed and/or edited this written report and agrees with it. Electronically signed by: Arthur Chen M.D. Narrative 01/12/2025 3:03 PM CDT EXAMINATION: CT head without contrast HISTORY: 69-year-old male with new onset headaches TECHNIQUE: CT of the head was performed with images acquired from skull base to vertex without intravenous contrast. COMPARISON: None Available. FINDINGS: Small region of encephalomalacia in the cingulate gyrus. There is no acute intracranial hemorrhage. Prominence of ventricles and sulci consistent with global cerebral volume loss. No mass effect or midline shift is present. Patchy hypodensities in the periventricular and deep subcortical white matter consistent with chronic microvascular ischemic disease. Right lens replacement. Small volume of fluid in the right mastoid air cells. The visualized portions of the paranasal sinuses are normal. Chronic left medial orbital wall blowout fracture. No acute fractures are identified. Procedure Note Arthur Chen MD - 01/12/2025 EXAMINATION: CT head without contrast HISTORY: 69-year-old male with new onset headaches TECHNIQUE: CT of the head was performed with images acquired from skull base to vertex without intravenous contrast. COMPARISON: None Available. FINDINGS: Small region of encephalomalacia in the cingulate gyrus. There is no acute intracranial hemorrhage. Prominence of ventricles and sulci consistent with global cerebral volume loss. No mass effect or midline shift is present. Patchy hypodensities in the periventricular and deep subcortical white matter consistent with chronic microvascular ischemic disease. Right lens replacement. Small volume of fluid in the right mastoid air cells. The visualized portions of the paranasal sinuses are normal. Chronic left medial orbital wall blowout fracture. No acute fractures are identified. IMPRESSION: No acute intracranial process. Dictated by: Stefany Lowery M.D. The radiology attending physician has personally reviewed this study, and had reviewed and/or edited this written report and agrees with it. Electronically signed by: Arthur Chen M.D. us Raisa Blanco MARINE ERECTOR IMG CT PROCEDURES Final Resul t * (ABNORMAL) eGFR (01/11/2025 1:57 PM CDT) eGFR 56(L) >=60 mL/min/1. 73 m2 Comment: Interpretive Data [...] interpretive data was last reviewed 2021. Blood 01/11/2025 1:57 PM CDT 01/11/2025 7:44 PM CDT us Raisa Blanco NP LAB BLOOD ORDERABLES Final Re sult [facility] Department [place] [address] * Differential, auto (01/11/2025 1:57 PM CDT) Neutrophil abs 3.01 1.50 - 6.50 K/cumm Imm gran abs 0.01 0.00 - 0.10 K/cumm [facility] Lymphocyte abs 2.02 0.80 - 3.30 K/cumm [facility] Monocyte abs 0.63 0.20 - 0.80 K/cumm [facility] Eosinophil abs 0.13 0.00 - 0.50 K/cumm [facility] Basophil abs 0.06 0.00 - 0.10 K/cumm [facility] Neutrophil pct 51.3 % [facility] Comment: Interpretive Data Percent cell count reference ranges are not reported, since discordance with absolute values may lead to misinterpretation of CBC data. Current Interpretive Data was last revised on 2017. Imm gran pct 0.2 % [facility] Comment: Interpretive Data Percent cell count reference ranges are not reported, since discordance with absolute values may lead to misinterpretation of CBC data. Current Interpretive Data was last revised on 2017. Lymphocyte pct 34.5 % [facility] Comment: Interpretive Data Percent cell count reference ranges are not reported, since discordance with absolute values may lead to misinterpretation of CBC data. Current Interpretive Data was last revised on 2017. Monocyte pct 10.8 % [facility] Comment: Interpretive Data Percent cell count reference ranges are not reported, since discordance with absolute values may lead to misinterpretation of CBC data. Current Interpretive Data was last revised on 2017. Eosinophil pct 2.2 % [facility] Comment: Interpretive Data Percent cell count reference ranges are not reported, since discordance with absolute values may lead to misinterpretation of CBC data. Current Interpretive Data was last revised on 2017. Basophil pct 1.0 % [facility] Comment: Interpretive Data Percent cell count reference ranges are not reported, since discordance with absolute values may lead to misinterpretation of CBC data. Current Interpretive Data was last revised on 2017. Blood 01/11/2025 1:57 PM CDT 01/11/2025 7:27 PM CDT us Raisa Blanco MARINE ERECTOR LAB BLOOD ORDERABLES Final Re sult Performing Organization Address City/[facility]/ZIP Co de Phone Number [facility] [place] [address] * PSA screen (01/11/2025 1:57 PM CDT) Pathologist [facility] PSA-Total 0.23 <=5.40 ng/mL Comment: Interpretive Data AGE SEX REFERENCE INTERVAL 0 minutes-150 years Female None 0 minutes-49 years Male None 50-59 years Male 0-3.90 60-69 years Male 0-5.40 70-79 years Male 0-6.20 80-150 years Male 0-6.20 The Shahbaz PSA Total assay procedure was used. Results from different manufacturers or methods may not be comparable. Serial testing should be performed using the same method. Current interpretive data last revised 21. Blood 01/11/2025 1:57 PM CDT 01/11/2025 7:27 PM CDT Raisa Blanco MARINE ERECTOR LAB BLOOD ORDERABLES Final Re sult Performing Organization Address City/[facility]/ZIP Co de Phone Number [facility] Department [place] [address] * CBC with auto differential (01/11/2025 1:57 PM CDT) Pathologist [facility] WBC 5.86 3.80 - 9.90 K/cumm Hgb 16.0 13.0 - 17.5 g/dL [facility] Hct 48.8 38.9 - 50.3 % [facility] Plt 276 150 - 400 K/cumm [facility] MPV 10.4 9.1 - 12.3 fL [facility] RBC 5.30 4.30 - 5.80 M/cumm [facility] MCV 92.1 81.3 - 96.4 fL [facility] MCH 30.2 27.1 - 33.3 pg [facility] MCHC 32.8 32.3 - 35.7 g/dL [facility] RDW CV 12.7 11.1 - 14.9 % [facility] RDW SD 43.0 35.7 - 48.1 fL [facility] NRBC abs 0.00 0.00 - 0.01 K/cumm [facility] Blood 01/11/2025 1:57 PM CDT 01/11/2025 7:27 PM CDT Raisa Blanco MARINE ERECTOR LAB BLOOD ORDERABLES Final Re sult Performing Organization Address [facility] Co de Phone Number [facility] [employer] [address] * Erythrocyte sedimentation rate (01/11/2025 1:57 PM CDT) Pathologist [facility] Erythrocyte sedimentation rate 11 1 - 20 mm/hr Blood 01/11/2025 1:57 PM CDT 01/11/2025 7:27 PM CDT us Raisa Blanco MARINE ERECTOR LAB BLOOD ORDERABLES Final Re sult Performing Organization Address [facility] de Phone Number [facility] [employer] [address] * CRP (acute phase) (01/11/2025 1:57 PM CDT) Pathologist [facility] CRP 1.0 <=10.0 mg/L Blood 01/11/2025 1:57 PM CDT 01/11/2025 7:27 PM CDT Raisa Blanco MARINE ERECTOR LAB BLOOD ORDERABLES Final Re sult Performing Organization Address [facility] [place] [address] * Vitamin B12 (01/11/2025 1:57 PM CDT) Pathologist [facility] Vitamin B12 426 230 - 1,250 pg/mL Blood 01/11/2025 1:57 PM CDT 01/11/2025 7:27 PM CDT us Raisa Blanco NP LAB BLOOD ORDERABLES Final Re sult [facility] Department [place] [address] * (ABNORMAL) Comprehensive metabolic panel (01/11/2025 1:57 PM CDT) Pathologist [facility] Sodium 140 135 - 145 mmol/L Potassium, pl 4.4 3.3 - 4.9 mmol/L [facility] Chloride 102 97 - 110 mmol/L [facility] CO2 26 22 - 32 mmol/L [facility] Anion gap 12 2 - 15 mmol/L [facility] BUN 23 6 - 25 mg/dL [facility] Creatinine 1.37(H) 0.80 - 1.30 mg/dL [facility] Glucose 116 70 - 199 mg/dL [facility] Comment: Interpretive Data Fasting glucose [...] interpretive data was last revised 2022. Calcium 10.3 8.5 - 10.3 mg/dL [facility] Bilirubin, total 0.5 0.1 - 1.2 mg/dL [facility] Protein, pl 8.1 6.5 - 8.5 g/dL [facility] Albumin 4.9 3.5 - 5.0 g/dL [facility] Alk phos 37(L) 40 - 130 Units/L [facility] ALT 19 7 - 55 Units/L [facility] AST 25 10 - 50 Units/L [facility] Blood 01/11/2025 1:57 PM CDT 01/11/2025 7:27 PM CDT Raisa Blanco MARINE ERECTOR LAB BLOOD ORDERABLES Final Re sult [facility] Department [place] [address] * SCAN - LABS (01/11/2025 11:19 AM CDT) us Perry Romero MD Final Result * DEVICE CHECK - REMOTE (01/06/2025 2:57 AM CDT) Anatomical Region Laterality Modality Other 01/06/2025 2:57 AM CDT Narrative 01/10/2025 2:37 PM CDT Interpretation Summary: Battery and Leads (BL) Normal parameters noted on battery and lead(s) --- 30 % remaining Presenting Rhythm ([place]) Atrial Pacing-Ventricular Sensing (AP-VS) --- rate 70 Arrhythmic events (AE) No new arrhythmic events in monitoring period Transmission Information (TI) Device Summary Report Procedure Note Maty Weber MD - 01/10/2025 Interpretation Summary: Battery and Leads (BL) Normal parameters noted on battery and lead(s) --- 30 % remaining Presenting Rhythm (KY) Atrial Pacing-Ventricular Sensing (AP-VS) --- rate 70 [...] MD LAB BLOOD ORDERABLES F inal Result [facility] [address] Department [place] [address] * (ABNORMAL) Basic metabolic panel (12/14/2024 9:13 AM CDT) Pathologist [facility] Sodium 135 135 - 145 mmol/L Potassium, pl 4.4 3.3 - 4.9 mmol/L [facility] Chloride 101 97 - 110 mmol/L [facility] CO2 21(L) 22 - 32 mmol/L [facility] Anion gap 13 2 - 15 mmol/L [facility] BUN 28(H) 6 - 25 mg/dL [facility] Creatinine 1.19 0.80 - 1.30 mg/dL [facility] Glucose 145 70 - 199 mg/dL [facility] [...] Calcium 9.4 8.5 - 10.3 mg/dL [facility] Blood 12/14/2024 9:13 AM CDT 12/14/2024 8:24 PM CDT Rigo Carroll MD LAB BLOOD ORDERABLES F inal Result Performing Organization Address [facility] Co de Phone Number [facility] [address] [facility] Department [employer] [address] * POCT glucose (12/08/2024 3:12 PM CDT) Glucose, POC 147 70 - 199 mg/dL Blood 12/08/2024 3:12 PM CDT 12/08/2024 3:12 PM CDT Jaime Fuchs MD LAB POCT ORDERABLES - DEVICE Final Result Performing Organization Address [facility] Co de Phone Number [facility] Department [place] [employer] [address] * POCT glucose (12/08/2024 1:09 PM CDT) Glucose, POC 115 70 - 199 mg/dL Blood 12/08/2024 1:09 PM CDT 12/08/2024 1:09 PM CDT Jaime Fuchs MD LAB POCT ORDERABLES - DEVICE Final Result Performing Organization Address [facility] Co de Phone Number [facility] Department [place] [address] * IOL Biometry - OU - Both [...] BLOOD ORDERABLES F inal Result [facility] [address] Department [place] [address] * (ABNORMAL) Basic metabolic panel (11/17/2024 8:52 AM CDT) Pathologist [facility] Sodium 137 135 - 145 mmol/L Potassium, pl 4.3 3.3 - 4.9 mmol/L [facility] Chloride 99 97 - 110 mmol/L [facility] CO2 23 22 - 32 mmol/L [facility] Anion gap 15 2 - 15 mmol/L [facility] BUN 17 6 - 25 mg/dL [facility] Creatinine 1.31(H) 0.80 - 1.30 mg/dL [facility] Glucose 121 70 - 199 mg/dL [facility] [...] 2022. Calcium 9.4 8.5 - 10.3 mg/dL [facility] Blood 11/17/2024 8:52 AM CDT 11/17/2024 6:20 PM CDT Rigo Carroll MD LAB BLOOD ORDERABLES F inal Result [facility] [address] Department [place] [address] * SCAN - LABS (11/12/2024 8:45 AM CDT) us Perry Romero MD Final Result * SCAN - LABS (11/08/2024 11:20 AM CDT) us Perry Romero MD Final [...] ORDERABLES F inal Result Performing Organization Address City/[facility] Co de Phone Number [facility] [address] [place] [address] * Basic metabolic panel (10/18/2024 10:10 AM CDT) Sodium 137 135 - 145 mmol/L Potassium, pl 4.3 3.3 - 4.9 mmol/L [facility] Chloride 101 97 - 110 mmol/L [facility] CO2 22 22 - 32 mmol/L [facility] Anion gap 14 2 - 15 mmol/L [facility] BUN 18 6 - 25 mg/dL [...] ORDERABLES F inal Result Performing Organization Address City/[facility]/ZIP Co de Phone Number [facility] [address] [address] Department [place] [address] * POCT glucose (10/16/2024 3:20 PM CDT) Glucose, POC 95 70 - 199 mg/dL Blood 10/16/2024 3:20 PM CDT 10/16/2024 3:20 PM CDT us Clifford Sandy MD LAB POCT ORDERABLES - DEVICE Final Result [facility] Department [place] [address] * RIGHT CORONARY ANGIOGRAPHY, CORONARY FLOW VELOCITY [...] and OM2 Known atretic KAUR to LAD DOOR TO DOOR SELLING DISTRIBUTOR of the mid RCA THERAPEUTIC RECOMMENDATIONS: Left [...] result were not included. Cardiovascular Procedure Center [facility] [address], [address] [place], [place] [id number] CORONARY AND GRAFT REPORT Patient: Vicky Youssef : 1955 MR number: [id number] Date of Service: 10/16/2024 Transfer Clerk: Clifford Sandy MD Fellow: Salvador Arita MD and Madlayn Reynaga MD Referring physician: Rigo Carroll MD INDICATION: worsening LV function, dyspnea PATIENT CLINICAL PROFILE: Vicky Youssef is a 69 y.o. male with a history of CABG s/p KAUR-LAD (atretic), SVG-Ramus/high OM, SVG-OM2, PCI to LM-LAD with a 4.0 mm [place] SHEMAR, mild LV dysfunction, who is presenting with worsening LV dysfunction and some dyspnea on exertion. PROCEDURE: The risks, benefits and alternatives of the procedures and moderate sedation were explained to the patient and informed consent was obtained. The patient was brought to the laboratory courier and placed on the table. Bilateral groins were prepped and draped in the usual sterile fashion. Ultrasound guidance was used to obtain access. I provided direct [id number] moderate conscious sedation which administered by independent [...] The RCA has slow flow and a DOOR TO DOOR SELLING DISTRIBUTOR in the mid segment which is unchanged [...] 231(H) 123 - 168 sec POC Performer [id number] [facility] POC Device Number [id number] [facility] Blood 10/16/2024 2:30 PM CDT 10/16/2024 2:30 PM CDT Clifford Sandy MD LAB POCT ORDERABLES - DEVICE Final Result Performing Organization Address [facility] de Phone Number [facility] [employer] [address] * (ABNORMAL) POCT Activated clotting time, low range (10/16/2024 2:11 PM CDT) ACT 269(H) 123 - 168 sec POC Performer [id number] [facility] POC Device Number [id number] [facility] Blood 10/16/2024 2:11 PM CDT 10/16/2024 2:11 PM CDT Clifford Sandy MD LAB POCT ORDERABLES - DEVICE Final Result Performing Organization Address [facility] de Phone Number [facility] [employer] [address] * CBC without differential (10/16/2024 12:35 PM CDT) WBC See Comment 380 - 9.90 Comment:Credited, specimen c lotted. Hgb See Comment 13.0 - 17.5 [facility] Comment:Credited, specimen c lotted. Hct See Comment 38.9 - 50.3 [facility] Comment:Credited, specimen c lotted. Plt See Comment 150 - 400 [facility] Comment:Credited, specimen c lotted. MPV See Comment 9.1 - 12.3 [facility] Comment:Credited, specimen c lotted. RBC See Comment 4.30 - 5.80 [facility] Comment:Credited, specimen c lotted. MCV See Comment 81.3 - 96.4 [facility] Comment:Credited, specimen c lotted. MCH See Comment 27.1 - 33.3 [facility] Comment:Credited, specimen c lotted. MCHC See Comment 32.3 - 35.7 [facility] Comment:Credited, specimen c lotted. RDW CV See Comment 11.1 - 14.9 [facility] Comment:Credited, specimen c lotted. RDW SD See Comment 35.7 - 48.1 [facility] Comment:Credited, specimen c lotted. NRBC abs See Comment 0.00 - 0.01 [facility] Comment:Credited, specimen c lotted. Blood 10/16/2024 12:3 5 PM CDT 10/16/2024 2:05 PM CDT Narrative [facility] - 10/16/2024 2:33 PM CDT To be drawn after hydration bolus complete Clifford Sandy MD LAB BLOOD ORDERABLES Final Result Performing Organization Address City/[facility]/ZIP Co de Phone Number [facility] Department [place] [address] * POCT glucose (10/16/2024 9:19 AM CDT) Glucose, POC 118 70 - 199 mg/dL Blood 10/16/2024 9:19 AM CDT 10/16/2024 9:19 AM CDT Clifford Sandy MD LAB POCT ORDERABLES - DEVICE Final Result Performing Organization Address City/[facility]/ZIP Co de Phone Number [facility] [place] [address] * ECG 12 lead (10/16/2024 8:32 AM CDT) Ventricular Rate EKG/Min 70 BPM [facility] Atrial Rate 70 BPM [facility] [place]-Interval (MSEC) 304 ms [facility] QRS-Interval (MSEC) 132 ms [facility] QT-Interval (MSEC) 374 ms [facility] QTc 403 ms [facility] P [place] 2 degrees [facility] R [place] 1 degrees [facility] T [place] 252 degrees [facility] Diagnosis Atrial-paced rhythm with prolonged AV conduction Left ventricular hypertrophy with QRS widening and repolarization abnormality ( Sokolow-Pereira , [place] product ) Cannot rule out Septal infarct , age undetermined Abnormal ECG When compared with ECG of 25-NOV-2022 12:06, no significant change Confirmed by ERNESTINE TAVERAS M.D ([id number]) on 10/17/2024 3:04:[address] [facility] 10/16/2024 8:32 AM CDT 10/17/2024 3:04 PM CDT us Clifford Sandy MD ECG ORDERABLES Lilia l Result [facility] * CTA Abdominal Aorta And Bilateral Iliofemoral [...] OF CARE TEST ORDERABLES Final Result * COLONOSCOPY (01/01/2021 12:16 PM CDT) Anatomical Region Laterality Modality Other Narrative Procedure Note Emily Zeng MD - 01/01/2021 12:16 PM CDT [facility] Patient Name: Vicky Youssef Procedure Date: 01/01/2021 12:16 PM Date of : 1955 Admit Type: Outpatient Age: 65 Gender: Male Attending MD: Huy Reed Room: [facility] ENDOSCOPY ROOM 3 Note Status: Finalized [...] passed under direct vision.The CF HQ [id number] endoscope was introducedthrough the anus and advanced to the cecum, identified by appendiceal orifice and ileocecal valve. The colonoscopy was performed without difficulty. The patient tolerated the procedure well. The qualityof the bowel preparation was evaluated using the BBPS ([place] Bowel Preparation Scale) with scores of:Right Colon [...] Recently Relevant to Health Maintenance Insurance MEDICARE [facility] MEDICARE SUPPLEMENT MEDICARE [facility] MEDICARE [facility] MEDICARE SUPPLEMENT [facility] MEDICARE SUPPLEMENT MEDICARE [facility] MEDICARE SUPPLEMENT Advance Directives For more information, please contact: [phone] * Full Code (Latest Code Status on [...] 4:34 PM 05/02/2021 4:45 PM Care Teams Timber Buyer Relationship Specialty Start Date End Date Perry Romero MD PCP - General Internal Medicine 02/23/20 Rigo Carroll MD Environmental Field Team Member Cardiology 05/23/19 Love Jones, PT Physical Therapist Physical Therapy 09/28/22 Arthur Bateman MD [address] [address] Referring Physician Anesthesiology 09/28/22 Karl Cha MD [address] [place] [address] Referring Physician Orthopedic Surgery 11/24/23
--- OUTSIDE RECORDS SUMMARY | 2025-01-16 00:53 | XMS_ITS | Referral Summary ---
Author Organization [facility] Address [address] [place] [address] Care Team Providers Care Mechanical Engineering Advisor Name Role Phone Rigo Carroll MD Unavailable [phone] Perry Romero MD Primary Care Provider [phone] Love Jones PT Unavailable Unavailab Arthur Law MD Unavailable Karl Cha MD Unavailable [phone] Encounters Date Type Department Care Team Description 01/15/2025 Telephone [facility] [address] [place] [address] Otis Del Real call transfer 01/13/2025 Orders Only [facility] [address] [place] [address] [address] [place] [phone] Perry Romero MD 01/12/2025 Results Follow-Up [facility] [address] [place] [address] [address] [place] [phone] Raisa Blanco NP Erythrocyte sedimentation rate, CRP (acute phase), CBC with auto differential, Additional followed-up results: 6 01/12/2025 10:50 AM CDT - 01/12/2025 11:59 PM CDT Hospital Encounter [facility] [address] [place] [address] Acute nonintractable headache, unspecified headache type Discharge Disposition: Discharge to home or self care 01/11/2025 1:57 PM CDT - 01/11/2025 11:59 PM CDT Hospital Encounter [facility] [address] [place] [address] Acute nonintractable headache, unspecified headache type; Prostate cancer screening; Fatigue, unspecified type Discharge Disposition: Discharge to home or self care 01/11/2025 1:15 PM CDT Office Visit [facility] [address] [place] [address] [address] [place] [phone] Raisa Blanco NP Acute nonintractable headache, unspecified headache type (Primary Dx); Prostate cancer screening; Memory changes; Fatigue, unspecified type 01/10/2025 Telephone [facility] at the [facility] [address] [facility] [address] [place] [address] Arthur Bateman MD PMC Preprocedure; Anticoagulation 01/06/2025 Orders Only [facility] Building [address] [place] [phone] Maty Weber MD 01/03/2025 Telephone [facility] [address] [place] [address] [address] [place] [phone] Perry Romero MD request for referral 01/02/2025 10:30 AM CDT Office Visit [facility] [address] [facility] 1st [place] [address] Pseudophakia of right eye (Primary Dx) 12/22/2024 Telephone [facility] [address] [place] [address] Geoffrey Ramon MD PhD Post op questions 12/21/2024 3:15 PM CDT Office Visit [facility] [employer] [facility] [address] [place] [address] [address] [place] [phone] Perry Romero MD Diabetes mellitus type II, non insulin dependent (HCC) (Primary Dx); Primary hypertension; Mixed hyperlipidemia; Stage 3a chronic kidney disease (HCC); Coronary artery disease involving [place] heart without angina pectoris, unspecified vessel or lesion type 12/18/2024 Results Follow-Up [facility] [address] [facility] 8th [place] [address] [place] [address] Nandini Avalos, RN Basic metabolic panel, eGFR 12/14/2024 9:13 AM CDT - 12/14/2024 11:59 PM CDT Hospital Encounter [address] [address] High risk medications (not anticoagulants) long-term use Discharge Disposition: Discharge to home or self care 12/14/2024 9:15 AM CDT Lab [facility] Outpatient Lab at [address] [phone] 12/13/2024 10:00 AM CDT Office Visit [facility] [address] [place] [phone] Pseudophakia of right eye (Primary Dx) 12/09/2024 7:15 AM CDT Office Visit [facility] [address] [phone] Pseudophakia of right eye (Primary Dx) 12/08/2024 2:10 PM CDT - 12/08/2024 3:10 PM CDT Surgery [facility] Operating Room [facility] ([facility]) [address] [place] [address] Jaime Fuchs MD EXTRACTION CATARACT WITH LENS IMPLANT. [01493 (CPT )] 12/08/2024 1:21 PM CDT Anesthesia Event [facility] Operating Room [facility]) [address] [place] [address] Tonya Castillo MD Heuvelman, Katherine Marie, NP 12/08/2024 12:34 PM CDT - 12/08/2024 3:16 PM CDT Hospital Encounter [facility] Operating Room [facility]) [address] [place] [address] Jaime Fuchs MD Nuclear sclerotic cataract of both eyes [H25.13] (Primary Dx) Discharge Disposition: Discharge to home or self care 12/05/2024 Telephone [facility] [address] [phone] Geoffrey Ramon MD PhD Scheduling Appointments (CEIOL OD) 12/04/2024 10:00 AM CDT Office Visit [facility] [address] [phone] Age-related nuclear cataract of both eyes (Primary Dx) 12/01/2024 Orders Only [facility] [address] [place] [address] [address] [place] [phone] Perry Romero MD 11/30/2024 Telephone [facility] [address] [place] [address] [facility] [address] [place] [address] Arthur Bateman MD [facility] 11/29/2024 Orders Only [facility] [address] [place] [address] [address] [place] [phone] Perry Romero MD 11/29/2024 1:46 PM CDT - 11/29/2024 11:59 PM CDT Hospital Encounter [facility] [address] [place] [address] [facility] [address] [place] [address] Arthur Bateman MD Right foot pain (Primary Dx); Left knee pain, unspecified chronicity; Spondylosis of lumbar region without myelopathy or radiculopathy Discharge Disposition: Discharge to home or self care 11/25/2024 Orders Only [facility] [address] [place] [phone] Perry Romero MD 11/21/2024 Documentation [facility] Clinical Trial 1 [place] [address] Bebe Tinajero BS 11/21/2024 Telephone [facility] [address] [facility] 8th [place] [address] [place] [address] Rigo Carroll MD 11/20/2024 3:00 PM CDT Office Visit [facility] 8th [place] [address] [place] [address] Rigo Carroll MD Coronary artery disease involving [place] coronary artery of [place] heart without angina pectoris (Primary Dx); Nonrheumatic mitral (valve) insufficiency; Presence of cardiac pacemaker; Ischemic cardiomyopathy 11/18/2024 Results Follow-Up [facility] [address] [place] [address] 8th [place] [address] [place] [address] Rigo Carroll MD Basic metabolic panel, eGFR 11/17/2024 8:52 AM CDT - 11/17/2024 11:59 PM CDT Hospital Encounter [address] [address] High risk medications (not anticoagulants) long-term use Discharge Disposition: Discharge to home or self care 11/17/2024 Orders Only [facility] 6th [place] [address] [place] [address] Sudhir Martinez MD Greater trochanteric pain syndrome of right lower extremity (Primary Dx); Chronic right hip pain 11/17/2024 9:00 AM CDT Lab [facility] Outpatient Lab at [address] [phone] Polypharmacy (Primary Dx) 11/12/2024 Orders Only [facility] [address] [place] [address] [address] [place] [address] Perry Romero MD 11/08/2024 Orders Only [facility] 8th [place] [address] [place] [address] Rigo Carroll MD High risk medications (not anticoagulants) long-term use (Primary Dx) 11/08/2024 Orders Only [facility] [address] [place] [address] [address] [place] [address] Perry Romero MD 11/07/2024 Orders Only [facility] [address] [place] [address] [address] [place] [address] Perry Romero MD 11/03/2024 Orders Only [facility] [address] [place] [address] [address] [place] [address] Perry Romero MD 11/02/2024 Orders Only [facility] Scanning, Provider Nonrheumatic mitral (valve) insufficiency (Primary Dx) 11/02/2024 Orders Only [facility] [address] [place] [address] [address] [place] [address] Perry Romero MD 11/01/2024 Telephone [facility] [address] [place] [address] 8th [place] [address] [place] [address] Rigo Carroll MD 10/31/2024 Orders Only [facility] [address] [place] [address] [address] [place] [address] Perry Romero MD 10/25/2024 1:00 PM CDT Office Visit [facility] [address] [place] [address] 6th [place] [address] [place] [address] Sudhir Martinez MD Greater trochanteric pain syndrome of right lower extremity (Primary Dx); Chronic right hip pain; Chronic knee pain after total replacement of left knee joint 10/23/2024 Telephone [facility] [address] [place] [address] 8th [place] [address] [place] [address] Rigo Carroll MD BP updates 10/18/2024 Results Follow-Up [facility] [address] [place] [address] 8th [place] [address] [place] [address] Rigo Carroll MD Basic metabolic panel, eGFR 10/18/2024 10:10 AM CDT - 10/18/2024 11:59 PM CDT Hospital Encounter [facility] [address] [place] [address] High risk medications (not anticoagulants) long-term use Discharge Disposition: Discharge to home or self care 10/18/2024 10:15 AM CDT Lab [facility] Outpatient Lab at [address] [phone] Diabetes mellitus type 2 without retinopathy (HCC) (Primary Dx); High risk medications (not anticoagulants) long-term use 10/16/2024 Results Follow-Up [facility] [address] [facility] 8th [place] [address] [place] [address] Rigo Carroll MD Cardiac Catheterization 10/16/2024 10:45 AM CDT - 10/16/2024 12:25 PM CDT Surgery [facility] [address] [address] Clifford Sandy MD CORONARY ARTERY AND GRAFT ANGIOGRAPHY [address]13[address] 10/16/2024 8:28 AM CDT - 10/16/2024 5:00 PM CDT Hospital Encounter [facility] Heart [facility] Vascular [address] [address] Clifford Sandy MD Coronary artery disease involving [place] heart without angina pectoris, unspecified vessel or lesion type Discharge Disposition: Discharge to home or self care from Last 3 Months Allergies Active Allergy Reactions Criticality Noted Date Comments Fbmaeat-Ngp-Wjm Reductase Inhibitors Other (See comments) Low 05/03/2024 Pt has an intolerance to statin drugs. Dr. Carroll's office put this in pt said/ reaction unknown Medications metFORMIN (GLUCOPHAGE) 1,000 mg tablet TAKE 1 TABLET(1000 MG) BY MOUTH DAILY WITH BREAKFAST 90 tablet 3 024 Active Additional Information Patient taking differently: 1,000 [...] 1 tablet (5 mg total) by mouth early intervention specialist before breakfast 90 tablet 3 Active clopidogreL [...] by mouth daily 30 tablet 2025 Active Additional Information Patient taking differently:25 mg oralEvery morning, Indications: chronic heart failure, coronary artery disease, hypertension, Informant: Self, Reported on 01/11/2025 empagliflozin (JARDIANCE) 10 mg tablet Take 1 tablet (10 mg total) by mouth daily 30 tablet Active Additional Information Patient taking differently:10 mg [...] 06/17/2023 Assessment & Plan (06/17/2023 10:00 AM BODY FINISHER): Continue flexeril 10mg Q8 PRN Trial gabapentin 100mg Q8 TID Topical lidocaine patches 4%, on for 12 hours/off for 12 hours Will send [place] 5/325 PRN #28, discussed that this will [...] time Assessment & Plan (07/21/2021 9:52 AM BODY FINISHER): Baseline creatine 1.3-1.5 Creatine Within patient;s baseline at 1.3 CTM Received IV fluids 500 ml on admission for creatine 1.59 Statin intolerance 07/18/2021 Assessment & Plan (07/18/2021 3:39 PM BODY FINISHER): History of statin intolerance -Continue ezetimibe and fenofibrate BPH (benign prostatic hyperplasia) 07/18/2021 Assessment & Plan (07/18/2021 3:59 PM BODY FINISHER): BPH s/p TURP -Continue home finasteride and tamsulosin HLD (hyperlipidemia) 07/18/2021 Assessment & Plan (12/21/2024 3:49 PM CDT): Lipid doing well Assessment & Plan (10/11/2024 11:06 AM CDT): Recommend statin therapy. Assessment & Plan (09/15/2024 10:52 AM CDT): Stable continue Zetia Assessment & Plan (08/31/2024 1:57 PM CDT): Impression: Chronic stable. Plan: Continue Zetia, fenofibrate Assessment & Plan (07/21/2021 8:10 AM BODY FINISHER): LDL ok while on non-statins due to intolerance. Continue present Rx for now Assessment & Plan (07/20/2021 8:10 AM BODY FINISHER): LDL ok while on non-statins due to intolerance. Continue present Rx for now Assessment & Plan (07/19/2021 7:57 AM BODY FINISHER): LDL ok while on non-statins due to intolerance. Continue present Rx for now Assessment & Plan (07/18/2021 3:52 PM BODY FINISHER): Lipid panel WNL -Continue ezetimibe and [...] 07/18/19 Assessment & Plan (07/18/2021 4:00 PM BODY FINISHER): PVOD s/p bilateral iliac stents Unstable angina 07/18/2021 Overview (07/18/2021): Added automatically from request for surgery [id number] Assessment & Plan (07/21/2021 8:10 AM BODY FINISHER): CP concerning for [place]. troponins normal, ruled out for AR. I have recommended coronary angiography and this is scheduled for today. Pt has PAD Continue IV heparin, follow labs and adjust. Continue aspirin, plavix, beta carrie, Patient asymptomatic. Cardiac catheterization scheduled for tomorrow. NPO after midnight. Assessment & Plan (07/20/2021 8:10 AM BODY FINISHER): CP concerning for [place]. troponins normal, ruled out for AR. I have recommended coronary angiography and this is scheduled for Wednesday. Pt has PAD and radial approach may be preferred. Continue IV heparin, follow labs and adjust. Continue aspirin, plavix, beta carrie, Patient asymptomatic. Cardiac catheterization scheduled for tomorrow. NPO after midnight. Assessment & Plan (07/19/2021 7:56 AM BODY FINISHER): CP concerning for [place]. troponins normal, ruled out for AR. Brief left sided chest pain since admission. [...] (03/06/2021): Added automatically from request for surgery [id number] Presbyopia 02/03/2021 Assessment & Plan (08/12/2023 5:06 PM BODY FINISHER): -Noting increased difficulty with near vision while reading -Recommended trialing higher power reading glasses Assessment & Plan (02/03/2021 2:44 PM CDT): Correctable to 20/25 right eye (OD) and left eye (OS). Update specs as desired. Rosacea 09/18/2020 Metatarsalgia of right foot 07/04/2020 Overview (07/04/2020): Added automatically from request for surgery [id number] Sesamoiditis 07/04/2020 Overview (07/04/2020): Added automatically from request for surgery [id number] Painful orthopaedic hardware 07/04/2020 Overview (07/04/2020): Added automatically from request for surgery [id number] Achilles tendon contracture, right 07/04/2020 Overview (07/04/2020): Added automatically from request for surgery [id number] Pseudarthrosis after fusion or arthrodesis 02/28 Overview (02/28/2019): Added automatically from request for surgery [id number] Diabetes mellitus type 2 without retinopathy 05/2019 Assessment & Plan (12/10/2024 6:36 PM CDT): - Continue good BP/BG control Assessment & Plan (02/09/2023 3:33 PM CDT): Continue strict BS control, annual dilated eye exams. Assessment & Plan (06/17/2022 4:09 PM BODY FINISHER): Continue strict BS control, annual dilated [...] months Assessment & Plan (08/12/2023 5:05 PM BODY FINISHER): -Follow up exam for AMD; last [...] 6months Assessment & Plan (06/17/2022 9:41 AM BODY FINISHER): -No signs of exudation. -given the [...] months Assessment & Plan (08/13/2021 3:12 PM BODY FINISHER): No signs of exudation. Per AREDS [...] fracture Foot pain Fracture, fibula Heart attack ([facility]) Heart failure ([facility]) Hyperlipidemia Hypertension Low back pain Macular degeneration Panic attack Poor circulation Sleep apnea needs a new machine SSS (sick sinus syndrome) ([facility]) Type 2 diabetes mellitus ([facility]) CHF but patient states his most recent EF was 37%. Medical ROS: Angina present? No Cough or orthopnea? No Dyspnea on exertion? No Has sleep apnea/wears CPAP? No Patient is able to lie flat for at least 1 hour YES Current medications: Systemic medications per EMR Flomax/Hytrin Yes Coumadin/Plavix Yes on DAPT Allergies: Allergies Allergen Reactions Bsvtdvp-Etq-Gkl Reductase Inhibitors Other (See comments) Pt has [...] toric lenses. The patient elected to target [place] with monofocal lens - Best phone number at which to reach patient: [phone] Planned Operation: CE/IOL of right eye Time: [...] follow. Assessment & Plan (06/17/2022 4:09 PM BODY FINISHER): NVS, follow. Assessment & Plan (02/23/2019 [...] (06/08/2018): Added automatically from request for surgery [id number] Palpitations 04/15/2018 CAD (coronary artery disease) 03/08/2018 Assessment & Plan (12/21/2024 3:49 PM CDT): No chest pain Assessment & Plan (09/04/2024 11:21 AM CDT): stable Assessment & Plan (07/18/2021 3:42 PM BODY FINISHER): CAD s/p CABG in 2010 (KAUR-LAD which is known to be an atretic graft; vein graft-marginal; and vein graft-2nd marginal branch; RCA occluded, with collateral revascularization) -Last [facility] in 11/2018 showed patent KAUR graft [...] Diabetes mellitus type II, non insulin dependent ([facility]) 01/15/2018 Assessment & Plan (12/21/2024 3:49 PM CDT): A1c excellent 5.9 Assessment & Plan (12/04/2024 8:09 AM CDT): >>ASSESSMENT AND PLAN FOR DM2 (DIABETES MELLITUS, TYPE 2) ([facility]) WRITTEN ON 07/18/2021 3:41 PM BY LAY WELDON NP -Hemoglobin A1c 6.1 -Hold home metformin while inpatient -SSI while admitted -Carb consistent diet -Accuchecks Assessment & Plan (12/04/2024 8:09 AM CDT): >>ASSESSMENT AND PLAN FOR DM2 (DIABETES MELLITUS, TYPE 2) ([facility]) WRITTEN ON 07/19/2021 7:58 AM BY RIGO CARROLL MD Follow glucose and rx with insulin Metformin held for now pending cath. Assessment & Plan (09/04/2024 11:21 AM CDT): Stable and doing well Assessment & Plan (07/21/2021 9:50 AM BODY FINISHER): Hemoglobin a1c 6.1 - diet controlled for now Metformin on hold for [facility] Continue to monitor. Assessment & Plan (07/20/2021 8:11 AM BODY FINISHER): Blood sugar stable. Follow-up blood sugar. Treat with insulin as appropriate Metformin being held. Assessment & Plan (02/28/2020 3:23 PM CDT): a1c at target, recommend annual eye exam. Feet are without lesions. 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 Continue beta-carrie. Assessment & Plan (07/20/2021 8:10 AM BODY FINISHER): Pacer function stable Continue present Rx. Continue beta-carrie. 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 Maty Weber Assessment & Plan (02/28/2020 3:23 PM CDT): No palpitations, syncope Depressive disorder 03/15/2015 Panic disorder without agoraphobia 03/15/2015 Resolved Problems Problem Noted Date Diagnosed Date Resolved Date Pain in right foot 04/24/2022 LINUS (acute kidney injury) 07/18/2021 Assessment & Plan (07/21/2021 8:12 AM BODY FINISHER): Pt with CKDstage 3, CrCl 50 ml/min. Creatinine improved. Cath today Assessment & Plan (07/20/2021 8:11 AM BODY FINISHER): Pt with CKDstage 3, CrCl 50 ml/min. Repeat BMP today. IV hydration Mikal night before cath recommended. Assessment & Plan (07/19/2021 7:59 AM BODY FINISHER): Pt with CKDstage 3, CrCl 50 ml/min. Stable. IV hydration Mikal night before cath recommended. Assessment & Plan (07/18/2021 3:44 PM BODY FINISHER): LINUS (Cr 1.59 on admission) on CKD (baseline Cr 1.0-1.2) -S/p 500 ml LR bolus in ED -Follow BMPs Statin intolerance 02/10/2021 4 Syncope and collapse 12/30/2020 024 Encounter for screening colonoscopy 10/14/2020 06/17/2023 Overview (10/14/2020): Added automatically from request for surgery [id number] Joint pain 02/28/2020 06/17/2023 Assessment & Plan (04/29/2020 10:45 AM BODY FINISHER): Medrol dose pack Tramadol Q6 PRN (use, safety, s/e reviewed) Referral to Pain Management Assessment & Plan (02/28/2020 3:25 PM CDT): xrays noted, check rheum panel (? H/o pos JENNIFER) Confusion 01/04/2019 06/17/2023 Chest pain 01/15/2018 06/17/2023 Assessment & Plan (07/21/2021 9:47 AM BODY FINISHER): CAD s/p CABG (2010), admitted with [...] pain -Telemetry monitoring NPO for [facility] Assessment & Plan (01/16/2018 10:39 AM [...] often do you attend chur ch or sabianism services? 1 to 4 times [...] file Legal Sex Male 11:34 PM BODY FINISHER Gender Identity Not on file Sexual [...] 01/11/2025 1:10 PM CDT Plan of Treatment Not on [...] as needed Medical Devices Implanted Type Area Speech And Language Assistant Device Identifier Shelf Expiration Date Model / Serial / Lot [employer] Angio-Seal Vip 6fr Closere Device [id number] - [id number] - [id number] Implanted:Qty: 1 on 11/25/2022 by Eliecer Mixon MD at [facility] Collagen [employer] 06/13/2023 [id number] / [id number] / [id number] [employer] Angio-Seal Vip 6fr Closere Device [id number] - [id number] - [id number] Implanted:Qty: 1 on 10/16/2024 by Clifford Sadny MD at [facility] Collagen Left: Common Femoral Artery [employer] 05/01/2025 [id number] / [id number] / [id number] Lead (Ra)-05/08/2015 Implanted:05/08/2015 by Maty Weber MD (Quantity not on file) Lead Heart Biotronik 350 974 SETROX S 53 / [id number] / Lead (Rv)-05/08/2015 Implanted:05/08/2015 by Maty Weber MD (Quantity not on file) Lead Heart Biotronik 350 975 SETROX S 60 / [id number] / [employer] Leona Venessa Graham Iol [id number] - [id number] - [id number] Implanted:Qty: 1 on 12/08/2024 by Jaime Fuchs MD at [facility] Lens Right: Eye [employer] [id number] 10/04/2027 [id number] / [id number] / 0 Pacemaker-05/08/2015 Implanted:05/08/2015 by Maty Weber MD (Quantity not on file) Pacemaker Left: Chest Biotronik [id number] ELUNA 8 JOVANNI AGUILA / [id number] / Synthes 201.814 2mm 3.5mm 14mm Self Tap Cruciform Cortex Screw Bone Stainless - S0 - [id number] Implanted:Qty: 1 on 08/06/2020 by Zoey Sexton MD at [facility] Screw Synthes I 201.814 / 0 / Med[employer]onic Card Vas Surgery 4.0 X 26mm [employer] Coronary Stent [id number] - [id number] - [id number] Implanted:Qty: 1 on 11/25/2022 by Clifford Sandy MD at [facility] Stent Medtronic Card Vasc Surgery 06/26/2025 [id number] / [id number] / [id number] Orthohelix [id number] Maxtorque 4mm 32.5mm Cannulated Self Drill Foot Ankle Long Thread - [id number] Implanted:Qty: 1 on 06/28/2018 at [facility] Right: Foot Orthohelix MSD-010- [id number] / / Orthohelix Tank House Operator-002-Pmx Ortholink 3 Hole [place] Foot Ankle Standard Plate Bone Nonsterile Latex Free - [id number] Implanted:Qty: 1 on 06/28/2018 at [facility] Right: Foot Orthohelix INTERVENTIONAL RADIOLOGY RN-002- PMX / / Orthohelix [id number] Maxlock Extreme 4mm 16mm Nonlock Foot Ankle Screw Bone Nonsterile - [id number] Implanted:Qty: 1 on 06/28/2018 at [facility] Right: Foot Orthohelix INTERVENTIONAL RADIOLOGY RN-011- 4016 / / Orthohelix [id number]-[id number] Maxlock Extreme 4mm 18mm Nonlock Foot Ankle Screw Bone Nonsterile Latex Free - [id number] Implanted:Qty: 1 on 06/28/2018 at [facility] Right: Foot Orthohelix INTERVENTIONAL RADIOLOGY RN-011- 40-18 / / Orthohelix [id number] Maxlock Extreme 4mm 14mm Nonlock Foot Ankle Screw Bone Nonsterile Latex Free - [id number] Implanted:Qty: 1 on 06/28/2018 at [facility] Right: Foot Orthohelix INTERVENTIONAL RADIOLOGY RN-011- 4014 / / Daig Lewis[employer] [id number] Angio-Seal Evolution 6fr .035in Guidewire Bypass Tube Suture - [id number] Implanted:Qty: 1 on 11/22/2018 by Sarah Vasquez MD at [facility] Daig Lewis[employer] 08/12/2019 [id number] / / [id number] Medtronic Sofamor Danek [id number] Infuse 14mm 23mm Absorbable Sponge Sterile Water Syringe Needle - [id number] Implanted:Qty: 1 on 06/02/2019 by Zoey Sexton MD at [facility] Right: Foot Medtronic Inc 01/11/2021 [id number] / / [id number] Medline Industries Inc [id number] Plate Bone Medline Unite 0 D Medium Metatarsophalangeal Right Fusion Nonsterile - [id number] Implanted:Qty: 1 on 06/02/2019 by Zoey Sexton MD at [facility] Right: Foot Medline Industries Inc [id number] / / Medline Industries Inc [id number] Pin Fixation Medline Unite L10mm Od1.1mm - [id number] Implanted:Qty: 1 on 06/02/2019 by Zoey Sexton MD at [facility] Right: Foot [employer]line Industries Inc [id number] / / Medline Industries Inc [id number] Screw Bone Medline Unite L34mm Od4.5mm Head Nonsterile - [id number] Implanted:Qty: 1 on 06/02/2019 by Zoey Sexton MD at [facility] Right: Foot Medline Industries Inc [id number] / / Medline Industries Inc [id number] Screw Bone Medline Unite L16mm Od3.5mm Foot Ankle Nonlock - [id number] Implanted:Qty: 1 on 06/02/2019 by Zoey Sexton MD at [facility] Right: Foot Medline Industries Inc [id number] / / Medline Breeze Tech Inc [id number] Screw Bone Medline Unite L18mm Od3.5mm Foot Ankle Nonlock - [id number] Implanted:Qty: 1 on 06/02/2019 by Zoey Sexton MD at [facility] Right: Foot Medline Industries Inc [id number] / / Medline Industries Inc [id number] Screw Bone Medline Unite L20mm Od3.5mm Foot Ankle Nonlock - [id number] Implanted:Qty: 2 on 06/02/2019 by Zoey Sexton MD at [facility] Right: Foot Dandong [employer] Inc [id number] / / Patti Orthopaedics Triathlon Cruciate Retain Bead Knee Left 5 Component Femoral Pa 5517-F-501 - [id number] Implanted:Qty: 1 on 04/24/2024 by Zbigniew Noel MD at [facility] [place] [facility] [id number] 02/27/2029 5517-F-5 01 / / [id number] [place] [facility] Triathlon Knee 6 Baseplate Tibial Tritanium 5536-B-600 - [id number] Implanted:Qty: 1 on 04/24/2024 by Zbigniew Noel MD at [facility] [place] [facility] [id number] 11/08/2028 5536-B-6 00 / / [id number] [employer] Insert Tibial Triathlon 6 H11mm Knee Bearing Condylar Stabilize Sterile 0005-S-287-E - [id number] Implanted:Qty: 1 on 04/24/2024 by Zbigniew Noel MD at [facility] [place] [facility] [id number] 12/19/2028 5531-G-6 11-E / / [id number] Explanted Type Area Speech And Language Assistant Device Identifier Shelf Expiration Date Model / Serial / Lot Microaire Surgical Instruments [id number] Anne .45in 9in 1 [place] Orthopedic Wire Fixation - S0 - [id number] Explanted:Qty: 1 on 08/06/2020 by Zoey Sexton MD at [facility] Wire [employer]aire [employer] Instruments [id number] S / 0 / Description:Provisional fixa tion [employer]aire [employer] Instruments [id number] Nane .062in 9in 1 Trocar Smooth Wire Fixation - [id number] Explanted:Qty: 1 on 06/28/2018 at [facility] Right: Foot [employer] Instruments [id number] / / Description:Provisional fixa tion [employer] 0520-7135 Anne .062in 9in 1 Trocar Smooth Wire Fixation - [id number] Explanted:Qty: 1 on 06/28/2018 at [facility] Right: Foot [employer] [id number] / / Description:Provisional fixa tion [employer] 4963-8116 Anne .062in 9in 1 Trocar Smooth Wire Fixation - [id number] Explanted:Qty: 1 on 06/28/2018 at [facility] Right: Foot [employer] Instruments [id number] / / Description:Provisional fixa tion Screw Explanted:Qty: 5 on 08/06/2020 by Zoey Sexton MD at [facility] Other / 0 / Plate Explanted:Qty: 1 on 08/06/2020 by Drew Espinosa MD at [facility] Other / 0 / Procedures Procedure [...] DEVICE Routine 12/08/2024 3 :12 PM CDT NM XCAPSL CTRC RMVL INSJ IO LENS PROSTH [...] 2:35 PM CDT Coronary artery disease involving [place] heart without angina pectoris, unspecified vessel or lesion type CORONARY FLOW VELOCITY (CFR) / INSTATANEOUS FLOW VELOCITY (IFR), 1ST VESSEL Routine 10/16/2024 2:35 PM CDT Coronary artery disease involving [place] heart without angina pectoris, unspecified vessel or lesion type RIGHT CORONARY ANGIOGRAPHY Routine 10/16/2024 2:35 PM CDT Coronary artery disease involving [place] heart without angina pectoris, unspecified vessel or [...] SCAN - LABS (01/13/2025 2:13 AM CDT) Perry Romero MD Final Result * CT [...] it. Electronically signed by: Arthur Chen M.D. Rasia Blanco NP IMG CT PROCEDURES Final Resul t * [...] 01/11/2025 7:44 PM CDT us Raisa Blanco BATTERY SERVICE TECHNICIAN LAB BLOOD ORDERABLES Final Re sult [facility] Department [place] [address] * Differential, auto (01/11/2025 1:57 PM CDT) Pathologist [facility] Neutrophil abs 3.01 1.50 - 6.50 K/cumm Imm gran abs 0.01 0.00 - 0.10 K/cumm [facility] Lymphocyte abs 2.02 0.80 - 3.30 K/cumm [facility] Monocyte abs 0.63 0.20 - 0.80 K/cumm [facility] Eosinophil abs 0.13 0.00 - 0.50 K/cumm [facility] Basophil abs 0.06 0.00 - 0.10 K/cumm [facility] Neutrophil pct 51.3 % [facility] Comment: Interpretive Data Percent cell count reference ranges are not reported, since discordance with absolute values may lead to misinterpretation of CBC data. Current Interpretive Data was last revised on 2017. Imm gran pct 0.2 % [facility] Comment: Interpretive Data Percent cell count reference ranges are not reported, since discordance with absolute values may lead to misinterpretation of CBC data. Current Interpretive Data was last revised on 2017. Lymphocyte pct 34.5 % [facility] Comment: Interpretive Data Percent cell count reference ranges are not reported, since discordance with absolute values may lead to misinterpretation of CBC data. Current Interpretive Data was last revised on 2017. Monocyte pct 10.8 % [facility] Comment: Interpretive Data Percent cell count reference ranges are not reported, since discordance with absolute values may lead to misinterpretation of CBC data. Current Interpretive Data was last revised on 2017. Eosinophil pct 2.2 % [facility] Comment: Interpretive Data Percent cell count reference ranges are not reported, since discordance with absolute values may lead to misinterpretation of CBC data. Current Interpretive Data was last revised on 2017. Basophil pct 1.0 % [facility] Comment: Interpretive Data Percent cell count reference ranges are not reported, since discordance with absolute values may lead to misinterpretation of CBC data. Current Interpretive Data was last revised on 2017. Blood 01/11/2025 1:57 PM CDT 01/11/2025 7:27 PM CDT us Raisa Blanco BATTERY SERVICE TECHNICIAN LAB BLOOD ORDERABLES Final Re sult [facility] Department [place] [address] * PSA screen (01/11/2025 1:57 PM CDT) PSA-Total 0.23 <=5.40 ng/mL Comment: Interpretive Data [...] 01/11/2025 7:27 PM CDT us Raisa Blanco BATTERY SERVICE TECHNICIAN LAB BLOOD ORDERABLES Final Re sult Performing Organization Address City/[facility]/ZIP Co de Phone Number [facility] [place] [employer] [place] [address] * CBC with auto differential (01/11/2025 1:57 PM CDT) WBC 5.86 3.80 - 9.90 K/cumm Hgb 16.0 13.0 - 17.5 g/dL [facility] Hct 48.8 38.9 - 50.3 % [facility] Plt 276 150 - 400 K/cumm [facility] MPV 10.4 9.1 - 12.3 fL [facility] RBC 5.30 4.30 - 5.80 M/cumm [facility] MCV 92.1 81.3 - 96.4 fL [facility] MCH 30.2 27.1 - 33.3 pg [facility] MCHC 32.8 32.3 - 35.7 g/dL [facility] RDW CV 12.7 11.1 - 14.9 % [facility] RDW SD 43.0 35.7 - 48.1 fL [facility] NRBC abs 0.00 0.00 - 0.01 K/cumm [facility] Blood 01/11/2025 1:57 PM CDT 01/11/2025 7:27 PM CDT us Raisa Blanco BATTERY SERVICE TECHNICIAN LAB BLOOD ORDERABLES Final Re sult Performing Organization Address City/[facility]/ZIP Co de Phone Number [facility] [place] [address] * Erythrocyte sedimentation rate (01/11/2025 1:57 PM CDT) Pathologist [facility] Erythrocyte sedimentation rate 11 1 - 20 mm/hr Blood 01/11/2025 1:57 PM CDT 01/11/2025 7:27 PM CDT Raisa Blanco BATTERY SERVICE TECHNICIAN LAB BLOOD ORDERABLES Final Re sult Performing Organization Address [facility] de Phone Number [facility] [place] [address] * CRP (acute phase) (01/11/2025 1:57 PM CDT) [facility] CRP 1.0 <=10.0 mg/L Blood 01/11/2025 1:57 PM CDT 01/11/2025 7:27 PM CDT Raisa Blanco BATTERY SERVICE TECHNICIAN LAB BLOOD ORDERABLES Final Re sult Performing Organization Address [facility] de Phone Number [facility] Department [place] [address] * Vitamin B12 (01/11/2025 1:57 PM CDT) [facility] Vitamin B12 426 230 - 1,250 pg/mL Blood 01/11/2025 1:57 PM CDT 01/11/2025 7:27 PM CDT Raisa Blanco BATTERY SERVICE TECHNICIAN LAB BLOOD ORDERABLES Final Re sult Performing Organization Address [facility] [place] [address] * (ABNORMAL) Comprehensive metabolic panel (01/11/2025 1:57 PM CDT) [facility] Sodium 140 135 - 145 mmol/L Potassium, pl 4.4 3.3 - 4.9 mmol/L [facility] Chloride 102 97 - 110 mmol/L [facility] CO2 26 22 - 32 mmol/L [facility] Anion gap 12 2 - 15 mmol/L [facility] BUN 23 6 - 25 mg/dL [facility] Creatinine 1.37(H) 0.80 - 1.30 mg/dL [facility] Glucose 116 70 - 199 mg/dL [facility] Comment: Interpretive Data Fasting glucose >/= 126 [...] 2022. Calcium 10.3 8.5 - 10.3 mg/dL [facility] Bilirubin, total 0.5 0.1 - 1.2 mg/dL [facility] Protein, pl 8.1 6.5 - 8.5 g/dL [facility] Albumin 4.9 3.5 - 5.0 g/dL [facility] Alk phos 37(L) 40 - 130 Units/L [facility] ALT 19 7 - 55 Units/L [facility] AST 25 10 - 50 Units/L [facility] Blood 01/11/2025 1:57 PM CDT 01/11/2025 7:27 PM CDT us Raisa Blanco NP LAB BLOOD ORDERABLES Final Re sult [facility] Department [place] [address] * SCAN - LABS (01/11/2025 11:19 AM CDT) us Perry Romero MD Final Result * DEVICE CHECK - REMOTE (01/06/2025 2:57 AM CDT) Anatomical Region Laterality Modality Other 01/06/2025 2:57 AM CDT Narrative 01/10/2025 2:37 PM CDT Interpretation Summary: Battery and Leads (BL) Normal parameters noted on battery and lead(s) --- 30 % remaining Presenting Rhythm (NM) Atrial Pacing-Ventricular Sensing (AP-VS) --- rate 70 Arrhythmic events (AE) No new arrhythmic events in monitoring period Transmission Information (TI) Device Summary Report Procedure Note Maty Weber MD - 01/10/2025 Interpretation Summary: Battery and Leads (BL) Normal parameters noted on battery and lead(s) --- 30 % remaining Presenting Rhythm (NM) Atrial Pacing-Ventricular Sensing (AP-VS) --- rate 70 Arrhythmic events (AE) No new arrhythmic events in monitoring period Transmission Information (TI) Device Summary Report Maty Weber MD [facility] CARDI[facility] SERVICES PROCEDURES Final Result * (ABNORMAL) POCT hemoglobin A1c (12/21/2024 3:14 PM CDT) Pathologist [facility] Hemoglobin A1C, POC 5.9(A) 4.0 - 5.6 % Blood 12/21/2024 3:14 PM CDT Perry Romero MD POINT OF CARE TEST ORDERABLES Final Result * eGFR (12/14/2024 9:13 AM CDT) Pathologist [facility] eGFR 66 >=60 mL/min/1. 73 m2 Comment: [...] MD LAB BLOOD ORDERABLES F inal Result [facility] [address] Department [place] [address] * (ABNORMAL) Basic metabolic panel (12/14/2024 9:13 AM CDT) Sodium 135 135 - 145 mmol/L Potassium, pl 4.4 3.3 - 4.9 mmol/L [facility] Chloride 101 97 - 110 mmol/L [facility] CO2 21(L) 22 - 32 mmol/L [facility] Anion gap 13 2 - 15 mmol/L [facility] BUN 28(H) 6 - 25 mg/dL [facility] Creatinine 1.19 0.80 - 1.30 mg/dL [facility] Glucose 145 70 - 199 mg/dL [facility] Comment: Interpretive [...] 2022. Calcium 9.4 8.5 - 10.3 mg/dL [facility] Blood 12/14/2024 9:13 AM CDT 12/14/2024 8:24 PM CDT Rigo Carroll MD LAB BLOOD ORDERABLES F inal Result [facility] [address] [facility] [place] [employer] [address] * POCT glucose (12/08/2024 3:12 PM CDT) Glucose, POC 147 70 - 199 mg/dL Blood 12/08/2024 3:12 PM CDT 12/08/2024 3:12 PM CDT Jaime Fuchs MD LAB POCT ORDERABLES - DEVICE Final Result Performing Organization Address [facility] [place] [address] * POCT glucose (12/08/2024 1:09 PM CDT) Glucose, POC 115 70 - 199 mg/dL Blood 12/08/2024 1:09 PM CDT 12/08/2024 1:09 PM CDT Jaime Fuchs MD LAB POCT ORDERABLES - DEVICE Final Result Performing Organization Address [facility] [place] [address] * IOL Biometry - OU - Both [...] MD LAB BLOOD ORDERABLES F inal Result [facility] [address] Department [place] [address] * (ABNORMAL) Basic metabolic panel (11/17/2024 8:52 AM CDT) Sodium 137 135 - 145 mmol/L Potassium, pl 4.3 3.3 - 4.9 mmol/L [facility] Chloride 99 97 - 110 mmol/L [facility] CO2 23 22 - 32 mmol/L [facility] Anion gap 15 2 - 15 mmol/L [facility] BUN 17 6 - 25 mg/dL [facility] Creatinine 1.31(H) 0.80 - 1.30 mg/dL [facility] Glucose 121 70 - 199 mg/dL [facility] Comment: Interpretive Data Fasting glucose [...] 2022. Calcium 9.4 8.5 - 10.3 mg/dL [facility] Blood 11/17/2024 8:52 AM CDT 11/17/2024 6:20 PM CDT Result [facility] Rigo Carroll MD LAB BLOOD ORDERABLES F inal Result [facility] [address] Department [place] [address] * SCAN - LABS (11/12/2024 8:45 AM CDT) us Perry Romero MD Final Result * SCAN - LABS (11/08/2024 11:20 AM CDT) us Perry Romero MD Final Result * SCAN - LABS (11/07/2024 6:06 PM CDT) us Perry Romero MD Final Result * SCAN - LABS (11/03/2024 4:59 PM CDT) Result Stella Romero MD Final Result * [...] LAB BLOOD ORDERABLES F inal Result [facility] [address] Department [place] [address] * Basic metabolic panel (10/18/2024 10:10 AM CDT) Sodium 137 135 - 145 mmol/L Potassium, pl 4.3 3.3 - 4.9 mmol/L [facility] Chloride 101 97 - 110 mmol/L [facility] CO2 22 22 - 32 mmol/L [facility] Anion gap 14 2 - 15 mmol/L [facility] BUN 18 6 - 25 mg/dL [facility] Creatinine 1.14 0.80 - 1.30 mg/dL [facility] Glucose 130 70 - 199 mg/dL [facility] Comment: Interpretive Data Fasting glucose [...] 2022. Calcium 10.0 8.5 - 10.3 mg/dL [facility] Blood 10/18/2024 10:1 0 AM CDT 10/18/2024 3:54 PM CDT Rigo Carroll MD LAB BLOOD ORDERABLES F inal Result [facility] [address] [facility] Department [place] [address] * POCT glucose (10/16/2024 3:20 PM CDT) [facility] Signature Glucose, POC 95 70 - 199 mg/dL Blood 10/16/2024 3:20 PM CDT 10/16/2024 3:20 PM CDT Clifford Sandy MD LAB POCT ORDERABLES - DEVICE Final Result [facility] Department [place] [address] * RIGHT CORONARY ANGIOGRAPHY, CORONARY FLOW VELOCITY [...] and OM2 Known atretic KAUR to LAD REGIONAL CONTROLLER of the mid RCA THERAPEUTIC RECOMMENDATIONS: Left [...] result were not included. Cardiovascular Procedure Center [facility] [employer] [facility] [address], [address] [place] [id number] CORONARY AND GRAFT REPORT Patient: Vicky Youssef : 1955 MR number: [id number] Date of Service: 10/16/2024 Insulation Cutter And Former: Clifford Sandy MD Fellow: Salvador Arita MD and Madalyn Reynaga MD Referring physician: Rigo Carroll MD INDICATION: worsening LV function, dyspnea PATIENT CLINICAL PROFILE: Vicky Youssef is a 69 y.o. male with a history of CABG s/p KAUR-LAD (atretic), SVG-Ramus/high OM, SVG-OM2, PCI to LM-LAD with a 4.0 mm [place] [employer] SHEMAR, mild LV dysfunction, who is presenting with worsening LV dysfunction and some dyspnea on exertion. PROCEDURE: The risks, benefits and alternatives of the procedures and moderate sedation were explained to the patient and informed consent was obtained. The patient was brought to the chemical processing laborer and placed on the table. Bilateral groins were prepped and draped in the usual sterile fashion. Ultrasound guidance was used to obtain access. I provided direct kkxo-zl-lbry moderate conscious sedation which administered by independent [...] The RCA has slow flow and a REGIONAL CONTROLLER in the mid segment which is unchanged [...] 231(H) 123 - 168 sec POC Performer [id number] [facility] POC Device Number [id number] [facility] Blood 10/16/2024 2:30 PM CDT 10/16/2024 2:30 PM CDT Clifford Sandy MD LAB POCT ORDERABLES - DEVICE Final Result [facility] Department [place] [address] * (ABNORMAL) POCT Activated clotting time, low range (10/16/2024 2:11 PM CDT) ACT 269(H) 123 - 168 sec POC Performer [id number] [facility] POC Device Number [id number] [facility] Blood 10/16/2024 2:11 PM CDT 10/16/2024 2:11 PM CDT Clifford Sandy MD LAB POCT ORDERABLES - DEVICE Final Result [facility] Department [place] [address] * CBC without differential (10/16/2024 12:35 PM CDT) WBC See Comment 3.80 - 9.90 Comment:Credited, specimen c lotted. Hgb See Comment 13.0 - 17.5 [facility] Comment:Credited, specimen c lotted. Hct See Comment 38.9 - 50.3 [facility] Comment:Credited, specimen c lotted. Plt See Comment 150 - 400 [facility] Comment:Credited, specimen c lotted. MPV See Comment 9.1 - 12.3 [facility] Comment:Credited, specimen c lotted. RBC See Comment 4.30 - 5.80 [facility] Comment:Credited, specimen c lotted. MCV See Comment 81.3 - 96.4 [facility] Comment:Credited, specimen c lotted. MCH See Comment 27.1 - 33.3 [facility] Comment:Credited, specimen c lotted. MCHC See Comment 32.3 - 35.7 [facility] Comment:Credited, specimen c lotted. RDW CV See Comment 11.1 - 14.9 [facility] Comment:Credited, specimen c lotted. RDW SD See Comment 35.7 - 48.1 [facility] Comment:Credited, specimen c lotted. NRBC abs See Comment 0.00 - 0.01 [facility] Comment:Credited, specimen c lotted. Blood 10/16/2024 12:3 5 PM CDT 10/16/2024 2:05 PM CDT Narrative [facility] - 10/16/2024 2:33 PM CDT To be drawn after hydration bolus complete Clifford Sandy MD LAB BLOOD ORDERABLES Final Result Performing Organization Address [facility] Co de Phone Number [facility] [place] [address] * POCT glucose (10/16/2024 9:19 AM CDT) Pathologist [facility] Glucose, POC 118 70 - 199 mg/dL Blood 10/16/2024 9:19 AM CDT 10/16/2024 9:19 AM CDT Clifford Sandy MD LAB POCT ORDERABLES - DEVICE Final Result Performing Organization Address [facility] de Phone Number [facility] [place] [address] * ECG 12 lead (10/16/2024 8:32 AM CDT) [facility] Ventricular Rate EKG/Min 70 BPM [facility] Atrial Rate 70 BPM [facility] NM-Interval (MSEC) 304 ms [facility] QRS-Interval (MSEC) 132 ms [facility] QT-Interval (MSEC) 374 ms [facility] QTc 403 ms [facility] P [place] 2 degrees [facility] R [place] 1 degrees [facility] T [place] 252 degrees [facility] Diagnosis Atrial-paced rhythm with prolonged AV conduction Left ventricular hypertrophy with QRS widening and repolarization abnormality ( Sokolow-Pereira , Philip product ) Cannot rule out Septal infarct , age undetermined Abnormal ECG When compared with ECG of 25-NOV-2022 12:06, no significant change Confirmed by ERNESTINE TAVERAS M.D ([id number]) on 10/17/2024 3:04:55 PM [facility] 10/16/2024 8:32 AM CDT 10/17/2024 3:04 PM CDT Clifford Sandy MD ECG ORDERABLES Lilia l Result Performing Organization Address [facility] Co de Phone Number [facility] * CTA Abdominal Aorta And Bilateral [...] no significant stenosis SMA: no significant stenosis RIITKA: no significant stenosis Right renal vessels: Mild [...] it. Electronically signed by: Taiwo Jones M.D. us Rigo Carroll MD IMG CT PROCEDURES Lilia l Result * POCT lipid panel (09/21/2023 9:27 AM CDT) Cholesterol, POC <100 mg/dL Triglycerides, POC 214 mg/dL Capillary blood 09/21/2023 9:27 AM CDT us Perry Romero MD POINT OF CARE TEST ORDERABLES Final Result * COLONOSCOPY (01/01/2021 12:16 PM CDT) Anatomical Region Laterality Modality Other Narrative Procedure Note Emily Zeng MD - 01/01/2021 12:16 PM CDT [facility] Patient Name: Vicky Youssef Procedure Date: 01/01/2021 12:16 PM Date of : 1955 Admit Type: Outpatient Age: 65 Gender: Male Attending MD: Huy Reed Room: [facility] ENDOSCOPY ROOM 3 Note Status: Finalized [...] bowel preparation was evaluated using the BBPS (Burt Bowel Preparation Scale) with scores of:Right Colon [...] On: 01/01/2021 12:16 PM Recognized by the [employer] for promoting quality in endoscopy us Emily Zeng MD ENDOSCOPY PROCEDUR ES Final Result from Last 3 Months or Most Recently Relevant to Health Maintenance Insurance MEDICARE [employer] MEDICARE SUPPLEMENT MEDICARE [facility] MEDICARE [facility] MEDICARE SUPPLEMENT MEDICARE [employer] MEDICARE SUPPLEMENT MEDICARE [facility] MEDICARE SUPPLEMENT Advance Directives For more information, please contact: [phone] * Full Code (Latest Code Status on [...] 4:34 PM 05/02/2021 4:45 PM Care Teams Mechanical Engineering Advisor Relationship Specialty Start Date End Date Perry Romero MD PCP - General Internal Medicine 02/23/20 Rigo Carroll MD Field Manager Cardiology 05/23/19 Love Jones, PT Physical Therapist Physical Therapy 09/28/22 Arthur Bateman MD [id number] [address] Referring Physician Anesthesiology 09/28/22 Karl Cha MD [address] [place] [address] Referring Physician Orthopedic Surgery 11/24/23
--- NOTE | 2025-01-16 13:03 | WPDHPUPDATE1 ---
History and Physical Update Update Date/Time: 01/16/25 13:03 History and Physical has been reviewed, including an updated exam of the patient. There are NO changes in the patient's condition. Risks, benefits, and alternatives have been discussed and questions answered. Patient agrees to proceed with procedure.
--- NOTE | 2025-01-16 14:29 | WPDANESEPPF ---
Anes - Initial Pre Proc Eval Procedure: Operation Date: 01/16/25 14:15 Proposed Procedures p Cystoscopy Bladder Biopsy with Fulguration - Dragan Barrios MD Date/Time: 01/16/25 14:29 Surgeon: Dragan Barrios MD Pre Op Diagnosis: Bladder Lesion Patient Data Age: 69 Gender: M Height: 1.8 m Weight: 93.6 kg Last Vital Signs Temp 36.2 C L 01/16/25 12:30 Pulse 70 01/16/25 12:30 Resp 16 01/16/25 12:30 BP 121/71 01/16/25 12:30 Pulse Ox 95 01/16/25 12:30 Allergies Allergy/AdvReac Type Severity Reaction Status Date / Time No Known Allergies Allergy Verified 01/16/25 13:21 Home Medications ?Medication ?Instructions ?Recorded ?Confirmed ?Type clopidogrel 75 mg tablet 75 mg PO DAILY 07/04/19 01/09/25 History ezetimibe 10 mg tablet 10 mg PO DAILY 07/04/19 01/16/25 History lisinopril 5 mg tablet 5 mg PO DAILY 07/04/19 01/09/25 History metformin 1,000 mg tablet 1,000 mg PO DAILY #90 tabs 07/06/19 01/16/25 Rx amlodipine 2.5 mg tablet 2 mg PO DAILY 01/10/20 01/16/25 History finasteride 5 mg tablet 5 mg PO DAILY 01/10/20 01/16/25 History metoprolol tartrate 25 mg tablet 25 mg PO DAILY 07/13/21 01/16/25 History pantoprazole 40 mg tablet,delayed 40 mg PO QAM #30 tabs 04/29/23 01/16/25 Rx release aspirin 81 mg tablet,delayed 81 mg PO DAILY #100 tabs 10/23/23 01/09/25 Rx release meloxicam 7.5 mg tablet 7.5 mg PO PRN pain 06/13/24 01/09/25 History nitroglycerin 0.4 mg sublingual 0.4 mg sublingual Q5M PRN chest 06/13/24 01/09/25 History tablet pain empagliflozin 10 mg tablet 10 mg PO DAILY 01/09/25 01/16/25 History (Jardiance) sacubitril 24 mg-valsartan 26 mg 1 tablet PO BID 01/09/25 01/09/25 History tablet (Entresto) Laboratory Tests 01/16/25 13:00 POC Capillary Glucose 93 mg/dl (65-105) Patient hx anesthesia problems: none Family hx anesthesia problems: none Results Review: All pre-operative results and documents have been reviewed as part of the pre-operative evaluation. [facility] Past Medical History Medical History Myocardial infarction Degenerative arthritis of knee, bilateral Pain in both knees Closed fracture of lateral portion of left tibial plateau BMI 33.0-33.9,adult Arthritis, lumbar spine Vascular disease Heart disease Surgical History Surgical History H/O heart artery stent Stented coronary artery Pacemaker History of heart surgery Triple bypass 2003 H/O foot surgery 06/2019 Dr. Puentes Family History Family History Mother Family history of chronic obstructive pulmonary disease Family history of coronary artery disease Heart disease Sibling Family history of coronary artery disease Family history of heart disease in male family member before age 55 Hypertension Lung cancer both brothers Father Family history of coronary artery disease Family history of congestive heart failure Family history of malignant neoplasm of brain Kidney disease Social History Social History Smoking packs per day: 1 Smoking cigarettes per day: 20.0 Years smoked: 15 Smoking pack-years: 15.00 Smoking status: Former smoker Tobacco type: cigarettes Second hand tobacco smoke exposure: No Smoking end date: 01/10/04 Alcohol intake: never Substance use: never Substance use type: does not use Do You Feel Safe in your Home?: Yes Lack of Transportation: No Lack of Food: Never True Current Housing: I Have Housing Concerned About Future Housing: No Difficulty Paying Gas/Electric Bills: No Difficulty Paying for Meds: No Currently Unemployed: No Education: Trade/Vocational Certificate Difficulty w/ Childcare or Family Care: No Living arrangements: with family Occupation/Education: retired Additional occupation/education comments: Retired Spiritual care concerns: No Anes - Eval Final PreProcedure Day of Procedure 01/16/25 14:29 Patient weight: overweight Heart: regular rate and rhythm Lungs: decreased breath sounds Airway: Mallampati scale class II Neurological: alert and oriented Last oral intake: >/= 8 hours ASA classification: IV Emergent: no Anesthetic plan: proceed Anesthesia type and monitoring: general LMA and standard monitoring Results Review: All pre-operative results and documents have been reviewed as part of the pre-operative evaluation. Informed Consent: The patient's anesthetic plan and its attendant risks and benefits were discussed with the patient/family/POA. Questions were solicited and answers provided to the satisfaction of the patient/family/POA.
[2025-01-16] MEDS: ceFAZolin 2 GM in SODIUM CHLORIDE 0.9% IV 50 ML 100 ML IVPB (14:36)
[2025-01-16] MEDS: LIDOCAINE 2% GEL UROJET 10 ML PKG MUCOUS MEM (14:51)
--- NOTE | 2025-01-16 14:59 | S_PTH ---
PATIENT: Deacon Youssef LOC: [facility] U#:[id number] AGE/SX: 69/M ROOM: RE01/16/[address]: Dragan Barrios, : 1955 BED: DIS: 01/16/2025 SPEC #: [id number] RECD: 01/17/25 09:02 STATUS: VERONICA RERae #: [id number] KI: 01/16/25 14:[address]: Sophie,Dragan Vernon DEPT: [facility] Surgical RECD BY: Pari Hitchcock ENTERED: 01/17/25 09:02 SP TYPE: Surgical OTHR DR: Perry RomeroMD Tissues: A - Bladder Biopsy Procedures: Hematoxylin and Eosin Stain Gross and Microscopic Level 4
--- NOTE | 2025-01-16 15:03 | P.OP_ITS ---
Procedure Note - Detailed Date of Procedure 01/16/25 Pre-op Diagnosis Bladder Lesion Post-op Diagnosis Same Procedure Performed Cystoscopy with bladder biopsy and fulguration Surgeon Dragan Barrios MD Anesthesia General Description of Procedure Patient was taken the operative suite correctly identified. Once anesthesia was obtained was placed in dorsal lithotomy position and prepped draped usual sterile fashion. Twenty-two Bolivian scope would not pass as his urethra was somewhat tight. I was able to place a 19 Bolivian without difficulty. External sphincter was intact prostate has shown open prostatic fossa from his prior procedures. He does have somewhat of a ridge to get into the bladder but a llowed passage of the 19 Bolivian scope. The bladder itself had 1 to 2+ trabeculation. There were several areas of erythema which we biopsied and fulgurated the base. 2% viscous lidocaine was inserted patient is taken recovery stable condition. He will call for path results in 1 week time. One option may be to do a TUR IP of the bladder neck to open that up further to see if that takes care of some of his symptoms in the future. Will see what his biopsy results show 1st. this completes dictation. please send a copy of op note to my office Estimated Blood Loss 0 Drains No Packing No Pathology Yes Complications No immediate complications Condition Stable Disposition PACU
[2025-01-16] MEDS: LACTATED RINGERS 1,000 ML 30 ML IV CONT ×2 (15:05)
--- NOTE | 2025-01-16 16:27 | SUR.PHASEII ---
Patient stable and ready for discharge. Waiting for ride.
== END 2025-01-16 16:30 | disposition home or self-care (01) ==
PROVIDERS: PCP Internal Medicine; Visit Provider Urology
PROC: 0TBB8ZX Excision of Bladder, Via Natural or Artificial Opening Endoscopic, Diagnostic (ICD-10-PCS; CPT 52204; principal; 2025-01-16 14:15)
DX: N30.20 Other chronic cystitis without hematuria (principal); Z79.84 Long term (current) use of oral hypoglycemic drugs; Z87.891 Personal history of nicotine dependence
CPT/HCPCS: 52204; 82948; 88305; J0690; J1100; J2405; J2704; J7120